=== PATIENT | female | born 1960 | race Caucasian/White ===

== ENCOUNTER → 2018-04-29 09:15 | Outpatient (CLI) | payer SELFPAY ==
--- NOTE | 2018-04-29 09:20 | XR_ITS ---
XR chest 2V HISTORY: ITS.REASON: FEVER ORDERING PHYSICIAN: Betty Antonio PATIENT AGE: 58 years COMPARISON: 03/26/2017 FINDINGS: There has been prior median sternotomy. Normal heart size. Lungs are clear bilaterally. No acute bony finding. IMPRESSION: No change with no acute finding
[2018-04-29 10:19] LABS: Basophils # 0.1 K/mm3 (0-0.2); Basophils % 0.5 % (0.1-2.0); Eosinophils % 0.2 % (0.1-12.0); Hematocrit 36.8 % (37.0-47.0); Hemoglobin 11.5 g/dL (12.2-16.2); Lymphocytes # 0.8 K/mm3 (0.7-4.5); Lymphocytes % 7.1 K/mm3 (10-50); Mean Corpuscular HGB Conc 31.2 g/dL (31.8-35.4); Mean Corpuscular Volume 80.1 fl (81-99); Monocytes # 0.2 K/mm3 (0.1-1.0); Monocytes % 2.2 % (1.7-9.3); Neutrophils # 9.9 K/mm3 (1.8-7.8); Platelet Count 316 K/mm3 (142-424); Red Blood Count 4.59 M/mm3 (4.20-5.40)
[2018-04-29 10:27] LABS: MANUAL DIFFERENTIAL MANUAL DIFFERENTIAL (MANUAL DIFF)
[2018-04-29 11:05] LABS: Alanine Aminotransferase 67 U/L (12-78); Albumin Level 3.2 gm/dL (3.4-5.0); Albumin/Globulin Ratio 0.9 (1.1-1.8); Alkaline Phosphatase 209 U/L (46-116); Anion Gap 18.5 mEq/L (5-15); Aspartate Amino Transferase 25 U/L (15-37); Bilirubin,Total 0.3 mg/dL (0.2-1.0); Blood Urea Nitrogen 16 mg/dL (7-18); Calcium 8.5 mg/dL (8.5-10.1); Carbon Dioxide 19 mmol/L (21.0-32.0); Chloride 102 mmol/L (98-107); Creatinine,Serum 0.93 mg/dL (0.55-1.02); Estimated Glomerular Filt Rate 61 ml/min (>60); GFR (African American) 74 ML/MIN (>60); Globulin 3.7 gm/dl (1.3-3.2); Glucose 119 mg/dL (74-106); Potassium 3.5 mmoL/L (3.5-5.1); Sodium 136 mmol/L (136-145); Total Protein,Serum 6.9 gm/dL (6.4-8.2)
[2018-04-29 11:52] LABS: Lymphocytes % 7 % (10-50); Monocytes % 2 % (2-9); Neutrophils % 89 % (42-76); Platelet Estimate Normal; Total Cells Counted 100
== END ==
PROVIDERS: PCP Nurse Practitioner Family; Visit Provider Nurse Practitioner Family
DX: R50.9 Fever, unspecified (principal)
CPT/HCPCS: 36415; 71046; 80053; 85007; 85025

== ENCOUNTER → 2018-05-08 10:15 | Outpatient (CLI) | payer OTHER, SELFPAY ==
[2018-05-08 10:43] LABS: Basophils # 0.1 K/mm3 (0-0.2); Basophils % 0.4 % (0.1-2.0); Eosinophils # 0.2 K/mm3 (0.0-0.4); Eosinophils % 1.6 % (0.1-12.0); Hematocrit 42.5 % (37.0-47.0); Lymphocytes # 1.4 K/mm3 (0.7-4.5); Mean Corpuscular HGB Conc 30.6 g/dL (31.8-35.4); Mean Corpuscular Volume 81.6 fl (81-99); Mean Platelet Volume 7.3 fl (7.4-10.4); Monocytes # 0.3 K/mm3 (0.1-1.0); Monocytes % 2.3 % (1.7-9.3); Neutrophils # 12.3 K/mm3 (1.8-7.8); Neutrophils % 85.8 % (37.0-80.0); Platelet Count 572 K/mm3 (142-424); Red Blood Count 5.21 M/mm3 (4.20-5.40); Red Cell Distribution Width 17.4 % (11.5-17.5); White Blood Count 14.3 K/mm3 (4.8-10.8)
[2018-05-08 11:29] LABS: Alanine Aminotransferase 467 U/L (12-78); Albumin Level 3.7 gm/dL (3.4-5.0); Amylase 222 U/L (25-125); Anion Gap 16.7 mEq/L (5-15); Aspartate Amino Transferase 536 U/L (15-37); Bilirubin,Direct 2.6 mg/dL (0.0-0.2); Bilirubin,Indirect 0.5 mg/dL (0.0-0.9); Bilirubin,Total 3.1 mg/dL (0.2-1.0); Blood Urea Nitrogen 14 mg/dL (7-18); Calcium 9.4 mg/dL (8.5-10.1); Carbon Dioxide 22 mmol/L (21.0-32.0); Chloride 105 mmol/L (98-107); Creatinine,Serum 0.92 mg/dL (0.55-1.02); Estimated Glomerular Filt Rate 62 ml/min (>60); GFR (African American) 75 ML/MIN (>60); Glucose 107 mg/dL (74-106); Potassium 3.7 mmoL/L (3.5-5.1); Sodium 140 mmol/L (136-145); Total Protein,Serum 7.3 gm/dL (6.4-8.2)
[2018-05-08 11:38] LABS: MANUAL DIFFERENTIAL MANUAL DIFFERENTIAL (MANUAL DIFF)
[2018-05-08 12:26] LABS: Lipase 4413 u/L (73-393)
[2018-05-08 12:29] LABS: Alkaline Phosphatase 1664 U/L (46-116)
[2018-05-08 14:23] LABS: Lymphocytes % 10 % (10-50); Monocytes % 3 % (2-9); Neutrophils % 87 % (42-76); Platelet Estimate Moderate Increase; Total Cells Counted 100
[2018-05-09 08:29] LABS: Hep A Ab, IgM Negative (Negative); Hepatitis B Core Antibody IgM Negative (Negative); Hepatitis B Surface Antigen Negative (Negative)
[2018-05-09 19:06] LABS: Hepatitis C Antibody <0.1 s/co ratio (0.0-0.9)
== END ==
PROVIDERS: PCP Nurse Practitioner Family; Visit Provider Nurse Practitioner Family
DX: R10.9 Unspecified abdominal pain (principal); R82.2 Biliuria; R11.2 Nausea with vomiting, unspecified
CPT/HCPCS: 36415; 80048; 80074; 80076; 82150; 83690; 85007; 85025

== ENCOUNTER → 2018-05-12 09:36 | Outpatient (CLI) | payer OTHER, SELFPAY ==
[2018-05-12 09:57] LABS: Basophils # 0.1 K/mm3 (0-0.2); Eosinophils # 0.2 K/mm3 (0.0-0.4); Eosinophils % 2.1 % (0.1-12.0); Hemoglobin 10.5 g/dL (12.2-16.2); Lymphocytes # 2.4 K/mm3 (0.7-4.5); Lymphocytes % 22.7 K/mm3 (10-50); Mean Corpuscular HGB Conc 30.1 g/dL (31.8-35.4); Mean Corpuscular Hemoglobin 25.2 pg (27.0-31.2); Mean Corpuscular Volume 83.8 fl (81-99); Mean Platelet Volume 7.4 fl (7.4-10.4); Monocytes # 0.4 K/mm3 (0.1-1.0); Monocytes % 3.6 % (1.7-9.3); Neutrophils # 7.6 K/mm3 (1.8-7.8); Neutrophils % 70.7 % (37.0-80.0); Platelet Count 476 K/mm3 (142-424); Red Blood Count 4.18 M/mm3 (4.20-5.40); Red Cell Distribution Width 17.8 % (11.5-17.5); White Blood Count 10.7 K/mm3 (4.8-10.8)
[2018-05-12 10:29] LABS: Alanine Aminotransferase 75 U/L (12-78); Albumin/Globulin Ratio 0.8 (1.1-1.8); Alkaline Phosphatase 608 U/L (46-116); Amylase 75 U/L (25-125); Anion Gap 15.9 mEq/L (5-15); Aspartate Amino Transferase 17 U/L (15-37); Bilirubin,Total 0.4 mg/dL (0.2-1.0); Blood Urea Nitrogen 16 mg/dL (7-18); Calcium 8.4 mg/dL (8.5-10.1); Carbon Dioxide 21 mmol/L (21.0-32.0); Chloride 110 mmol/L (98-107); Creatinine,Serum 0.69 mg/dL (0.55-1.02); Estimated Glomerular Filt Rate 87 ml/min (>60); GFR (African American) 105 ML/MIN (>60); Globulin 3.8 gm/dl (1.3-3.2); Glucose 95 mg/dL (74-106); Lipase 1339 u/L (73-393); Potassium 3.9 mmoL/L (3.5-5.1); Sodium 143 mmol/L (136-145); Total Protein,Serum 6.8 gm/dL (6.4-8.2)
== END ==
PROVIDERS: PCP Nurse Practitioner Family; Visit Provider Nurse Practitioner Family
DX: K85.90 Acute pancreatitis without necrosis or infection, unspecified (principal); R74.8 Abnormal levels of other serum enzymes
CPT/HCPCS: 36415; 80053; 82150; 83690; 85025

== ENCOUNTER → 2018-05-30 10:17 | Outpatient (CLI) | payer SELFPAY ==
[2018-05-30 10:50] LABS: Basophils # 0.1 K/mm3 (0-0.2); Basophils % 0.3 % (0.1-2.0); Eosinophils # 0.2 K/mm3 (0.0-0.4); Eosinophils % 1.1 % (0.1-12.0); Hematocrit 35.3 % (37.0-47.0); Hemoglobin 10.9 g/dL (12.2-16.2); Lymphocytes # 1.5 K/mm3 (0.7-4.5); Lymphocytes % 9.2 K/mm3 (10-50); Mean Corpuscular HGB Conc 30.9 g/dL (31.8-35.4); Mean Corpuscular Hemoglobin 25.3 pg (27.0-31.2); Mean Corpuscular Volume 81.6 fl (81-99); Mean Platelet Volume 6.5 fl (7.4-10.4); Monocytes # 0.6 K/mm3 (0.1-1.0); Monocytes % 3.8 % (1.7-9.3); Neutrophils # 14.2 K/mm3 (1.8-7.8); Neutrophils % 85.5 % (37.0-80.0); Platelet Count 354 K/mm3 (142-424); Red Blood Count 4.32 M/mm3 (4.20-5.40); Red Cell Distribution Width 17.4 % (11.5-17.5); White Blood Count 16.6 K/mm3 (4.8-10.8)
[2018-05-30 10:52] LABS: MANUAL DIFFERENTIAL MANUAL DIFFERENTIAL (MANUAL DIFF)
[2018-05-30 11:15] LABS: Alanine Aminotransferase 13 U/L (12-78); Albumin Level 3.1 gm/dL (3.4-5.0); Albumin/Globulin Ratio 0.8 (1.1-1.8); Alkaline Phosphatase 144 U/L (46-116); Amylase 34 U/L (25-125); Anion Gap 16.1 mEq/L (5-15); Aspartate Amino Transferase 12 U/L (15-37); Bilirubin,Total 0.4 mg/dL (0.2-1.0); Blood Urea Nitrogen 16 mg/dL (7-18); Calcium 8.6 mg/dL (8.5-10.1); Carbon Dioxide 23 mmol/L (21.0-32.0); Chloride 99 mmol/L (98-107); Creatinine,Serum 1.14 mg/dL (0.55-1.02); Estimated Glomerular Filt Rate 49 ml/min (>60); GFR (African American) 59 ML/MIN (>60); Glucose 113 mg/dL (74-106); Lipase 339 u/L (73-393); Potassium 4.1 mmoL/L (3.5-5.1); Sodium 134 mmol/L (136-145); Total Protein,Serum 7.1 gm/dL (6.4-8.2)
[2018-05-30 16:34] LABS: Lymphocytes % 11 % (10-50); Monocytes % 2 % (2-9); Neutrophils % 87 % (42-76); Platelet Estimate Normal; Total Cells Counted 100
[2018-05-30 16:35] LABS: Hypochromasia 1+
--- NOTE | 2018-05-30 18:17 | CT_ITS ---
CT abdomen w con CLINICAL INDICATION: Left upper quadrant pain, recurrent pancreatitis ITS.REASON: LUQ pain, N/V, recurrent pancreatitis ORDERING PHYSICIAN: Betty Antonio PATIENT AGE: 58 years COMPARISON: None TECHNIQUE: Axial images obtained with sagittal and coronal reformats. All CT scans at the facility use one or more dose reduction, viz: automated exposure control, ma/kV adjustment per patient size (including targeted exams where dose is matched to indication, i.e. head), or iterative reconstruction technique. PROCEDURE: Oral Contrast: None IV Contrast: 75 mL [id number]. FINDINGS: The lung bases are clear. Pneumobilia is present. There has been a prior cholecystectomy. No space-occupying lesions evident of the liver. The spleen and adrenal glands are unremarkable. There is no evidence of acute pancreatitis. There are a few calcifications within the head of the pancreas and may be due to prior chronic pancreatitis. The pancreatic duct is also slightly prominent 5 mm. There is a stoma between the anterior wall the stomach and a loop of small bowel which is located anterior to the wall the stomach consistent with a gastroenterostomy. It is assumed that this has been surgically created. Please correlate with patient's surgical history which is not available at the time of the reading No renal or ureteral calculi. There is mild cortical scarring along the lower pole of the left kidney. No obvious intestinal obstruction or free air. Pelvis images were not performed. There is some thickening of the gastric wall at the pyloric region which could be related to some gastritis or could be related to nondistention. There are a few small periaortic lymph nodes. These are nonspecific but are slightly larger compared to 06/24/2015 measuring up to 1.5 x 0.8 cm. No acute bony anomalies. . There is a mild amount of retained colonic feces IMPRESSION: 1. No evidence of acute pancreatitis. There is some calcification in the head of the pancreas may indicate chronic pancreatitis. 2. Pneumobilia, gastroenterostomy. 3. Mild thickening of the pyloric region of the stomach which may be related to gastritis or nondistention.
== END ==
LOC: LAB 10:18 → RAD 17:00
PROVIDERS: PCP Nurse Practitioner Family; Visit Provider Nurse Practitioner Family
DX: R10.12 Left upper quadrant pain (principal); R11.2 Nausea with vomiting, unspecified; K86.1 Other chronic pancreatitis
CPT/HCPCS: 36415; 74160; 80053; 82150; 83690; 85007; 85025; Q9967

== ENCOUNTER 2019-04-12 00:06 | Inpatient (IN) ==
--- NOTE | 2019-04-12 01:05 | Emergency Department Note ---
ED Disposition Clinical Impression: Hip fracture Qualifiers: Encounter type: initial encounter Fracture type: closed Laterality: right Qualified Code(s): S72.001A - Fracture of unspecified part of neck of right femur, initial encounter for closed fracture Disposition: Admitted As Inpatient Condition on Discharge: Good Referrals: Betty Antonio APRN [Primary Care Provider] - - Critical Care Critical Care Time: No Attestation: On 04/12/19, the high probability of a clinically significant, sudden or life threatening deterioration of the following system(s) required my full and direct attention, intervention and personal management. The time I documented below is in addition to time spent performing reported procedures but includes the following listed in this critical care notation. Medical Decision Making - Medical Records Medical records reviewed: Yes: I reviewed the patient's medical records. - [place] Inquiry Pt receiving controlled substance: No Vital Signs: 04/12/19 00:09 Temperature 98.3 F Temperature Source Oral Pulse Rate [Right] 74 Respiratory Rate 18 Blood Pressure [Right Arm] 168/74 H Blood Pressure Mean [Right Arm] 105 02 Sat by Pulse Oximetry 98 - Lab Data Lab results reviewed: Yes: I reviewed the patient's lab results. Orders (Tests/Meds): ORDERS Category Date Time Status XR hip RT 2-3V w/pelvis Stat Exams 04/12/19 00:15 Taken - Radiology Data #1 Image(s): Chest, Pelvis, Hip Image Reviewed: Yes I reviewed the patient's radiology image Preliminary Findings: Abnormal (hip fx ) - Physician Consults Physician Consulted: elvia Reason -: Admission Additional Consult: harrison Reason -: Pt condition General Adult HPI - General Chief complaint: PAIN Stated complaint: Fall at [facility];Rt Hip Pain Time Seen by Provider: 04/12/19 00:15 Mode of Arrival: Wheelchair Source of Information: Patient, Relative, Medical Record Limitations: No Limitations Description of Symptoms (Recalled from ER Triage Doc. by RN): Pt was here visiting her and while in the parking lot she fell on her bottom and now is complaining of right hip pain. - History of Present Illness HPI narrative: pt with fall this pm in parking lot with rt hip injury Onset (ago): hour(s) Location: right, lower extremity Severity: moderate Associated symptoms: denies other symptoms Treatments prior to arrival: none - Related Data Home Medications Medication Instructions Recorded Confirmed Estradiol 0.5 mg PO DAILY 12/18/17 12/18/17 Gabapentin [Gabapentin 300mg Cap] 300 mg PO BID 12/18/17 12/18/17 Pantoprazole Sodium [Pantoprazole 40 mg PO BID 12/18/17 12/18/17 20mg Tab] Allergies Allergy/AdvReac Type Severity Reaction Status Date / Time levofloxacin [From LEVAQUIN] Allergy Unknown SEIZURES Verified 12/18/17 13:44 [facility] History - Hepatitis A Screen Drug use history?: No High risk sexual behaviors?: No History of sexually transmitted infection?: No Currently employed?: No Childcare worker?: No Do you have indoor plumbing?: Yes Do you have electricity?: Yes Attestation statement:: This patient has been screened for Hepatitis A risk factors. I have reviewed the patient's past medical history: Yes Medical History: Reports:: Gastroesophageal Reflux Disease(GERD), Seizures, Valvular Heart Disease (had replaced in 2012) Denies:: Diabetes Mellitus Type 1, Diabetes Mellitus Type 2, Internal Pacemaker, Lung Disease Laterality Cases: Bilateral: Tonsillectomy Other Surgeries: Yes: Appendectomy, Cholecystectomy, Other (gastric bypass). No: Pacemaker - Social History Smoking Status: Current every day smoker # Packs/Day (cigarettes): 1 Alcohol Intake: never Occupational Status: retired ROS Obtained: Yes All systems reviewed & no additional complaints - Constitutional Constitutional: Denies fever(s) - Eyes Eyes: Denies change in vision - ENT Ears, Nose, Mouth, and Throat: Denies sore throat - Cardiovascular Cardiovascular: Denies chest pain - Respiratory Respiratory: No cough - Gastrointestinal Gastrointestingal: Denies: abdominal pain - Genitourinary Female Genitourinary: Denies hematuria - Musculoskeletal Musculoskeletal: Reports as per HPI, Reports joint pain, Reports limited range of motion - Integumentary/Breasts Skin/Breast: Denies rash - Neurologic Neurologic: Denies focal weakness, Denies seizure-like activity Physical Exam - General General appearance: alert - Head Head exam: normocephalic - Eye Eye exam: Present: PERRL, EOMI - ENT ENT exam: Present: mucous membranes dry - Neck Neck exam: Present: trachea midline - Respiratory Respiratory exam: Absent: respiratory distress - Cardiovascular Cardiovascular exam: Present: regular rate, systolic murmur, +S4 - Abdominal Exam Abdominal exam: Present: soft - Expanded Lower Extremity Exam Right Hip/Pelvis exam: Present: tenderness, pelvis stable, pain on hip/pelvis palpation, hip pain on leg movement - Neurological Exam Neurological exam: Present: alert, oriented X3, CN II-XII intact - Psychiatric Psychiatric exam: Present: normal affect - Skin Skin exam: Absent: rash
[2019-04-12 01:15] LABS: Microscopic, Urine URINE MICROSCOPIC (MICROSCOPIC)
[2019-04-12 01:19] LABS: Basophils # 0.1 K/mm3 (0-0.2); Basophils % 0.5 % (0.1-2.0); Eosinophils # 0.1 K/mm3 (0.0-0.4); Hematocrit 40.8 % (37.0-47.0); Hemoglobin 12.4 g/dL (12.2-16.2); Lymphocytes # 2.3 K/mm3 (0.7-4.5); Lymphocytes % 17.6 % (10-50); Mean Corpuscular HGB Conc 30.5 g/dL (31.8-35.4); Mean Corpuscular Volume 78.7 fl (81-99); Mean Platelet Volume 6.9 fl (7.4-10.4); Monocytes # 0.6 K/mm3 (0.1-1.0); Monocytes % 4.4 % (1.7-9.3); Neutrophils # 9.9 K/mm3 (1.8-7.8); Neutrophils % 76.5 % (37.0-80.0); Platelet Count 277 K/mm3 (142-424); Red Blood Count 5.18 M/mm3 (4.20-5.40); Red Cell Distribution Width 23.1 % (11.5-17.5); White Blood Count 12.9 K/mm3 (4.8-10.8)
[2019-04-12 01:21] LABS: Appearance,Urine CLEAR (Clear); Bilirubin,Urine Negative (Negative); Blood, Urine TRACE-L (Negative); Color,Urine YELLOW (Yellow); Glucose,Urine (UA) Negative (Negative); Ketones,Urine Negative (Negative); Leukocyte Esterase,Urine Negative (Negative); Protein,Urine Negative (Negative); Urobilinogen,Urine 0.2 EU/dl (0.2)
[2019-04-12 01:27] LABS: RBC,Urine Occasional #/hpf (0-3)
[2019-04-12 01:30] LABS: Activated Partial Thrombo Time 25.4 seconds (23.6-34.0); Prothrombin Time 10.4 seconds (9.4-11.8)
[2019-04-12 01:46] LABS: Albumin Level 3.4 gm/dL (3.4-5.0); Albumin/Globulin Ratio 0.9 (1.1-1.8); Bilirubin,Total 0.2 mg/dL (0.2-1.0); Calcium 8.9 mg/dL (8.5-10.1); Globulin 3.8 gm/dl (1.3-3.2); Total Protein,Serum 7.2 gm/dL (6.4-8.2)
--- NOTE | 2019-04-12 07:16 | History & Physical Report ---
*Admission Date: 04/12/19 *Chief complaint: Right hip pain *History of present illness: 59-year-old female presented to the ER after a fall in the hospital parking lot. Patient was here visiting family and leaned back against an object that she thought would support her weight. She was incorrect and patient ended up falling back directly landing on her bottom. She felt immediate onset of pain in the right hip. Patient was able to get to a standing position and ambulate but was seen in the emergency department and diagnosed with a femoral neck fracture. Patient is admitted for orthopedic consultation and repair. Medical history is significant for chronic cigarette use, currently half pack per day. Patient has had aortic valve replacement with tissue valve and does not require long-term anticoagulation. Patient has had some gastrointestinal surgery that she refers to as a "bypass" but is not for weight loss. [facility] History Medical History: Reports:: Gastroesophageal Reflux Disease(GERD), Seizures, Valvular Heart Disease (had replaced in 2012) Denies:: Cancer, Diabetes Mellitus Type 1, Diabetes Mellitus Type 2, Internal Pacemaker, Lung Disease, MRSA *Have you ever received a pneumonia vaccine?: No *Have you received a flu vaccine this season?: No ("Just didn't need it.") Laterality Cases: Bilateral: Tonsillectomy Other Surgeries: Yes: Appendectomy, Cholecystectomy, Other Valve Replacement (Bioprosthetic aortic valve replacement), Other (gastric bypass). No: Pacemaker Amputation: No Fractures: No - *Social History Educational Level: Completed High School Smoking Status: Current every day smoker Tobacco Type: cigarettes # Packs/Day (cigarettes): 1 Alcohol Intake: never *Occupational Status:: employed, retired Housing: house Household Members: spouse *Travel in the last 8 weeks: None - Psychiatric History Expresses thoughts of harming self/others: None Suicide Plan Description: No Plan Family Hx:: Cancer, Diabetes, Hyperlipidemia, Hypertension, Kidney Disease, Stroke Review of Systems - Constitutional Denies anorexia, Denies body ache(s) - *Cardiovascular Denies chest pain, Denies chest pain at rest, Denies chest pain with activity, Denies shortness of breath, Denies shortness of breath with activity, Denies irregular heart rhythm, Denies lightheadedness, Denies shortness of breath when lying down, Denies rapid, pounding, or irregular heartbeat, Denies shortness of breath causing sudden awakening, Denies radiating jaw, neck or arm pain, Denies fast heart rate, Denies slow heart rate - *Respiratory Denies change in phlegm color, Denies chest congestion, Denies cough, Denies shortness of breath, Denies coughing up blood, Denies wheezing - *Gastrointestinal Denies abdominal pain, Denies belching, Denies bloating - *Musculoskeletal Reports joint pain, Reports limited joint movement - *Neurologic Denies abnormal walking, Denies abnormal hearing, Denies abnormal movements, Denies abnormal speech, Denies localized weakness, Denies seizure-like activity Meds Home Medications Medication Instructions Recorded Confirmed Type Estradiol 0.5 mg PO DAILY 12/18/17 04/12/19 History Gabapentin [Gabapentin 300mg Cap] 300 mg PO BID 12/18/17 04/12/19 History Pantoprazole Sodium [Pantoprazole 40 mg PO BID 12/18/17 04/12/19 History 20mg Tab] Ropinirole HCl [Ropinirole ER] 4 mg PO HS 04/12/19 04/12/19 History Temazepam [Restoril] 15 mg PO HS 04/12/19 04/12/19 History Allergies Allergy/AdvReac Type Severity Reaction Status Date / Time levofloxacin [From LEVAQUIN] Allergy Unknown SEIZURES Verified 12/18/17 13:44 Exam Vital signs and Labs for Last 24 Hours: Temp Pulse Resp BP Pulse Ox 98.3 F 84 18 112/57 L 98 04/12/19 03:52 04/12/19 03:52 04/12/19 03:52 04/12/19 03:52 04/12/19 03:52 Laboratory Results - last 24 hr 04/12/19 01:00: WBC 12.9 H, RBC 5.18, Hgb 12.4, Hct 40.8, MCV 78.7 L, MCH 24.0 L , MCHC 30.5 L, RDW 23.1 H, Plt Count 277, MPV 6.9 L, Neut % (Auto) 76.5, Lymph % (Auto) 17.6, Jones % (Auto) 4.4, Eos % (Auto) 1.0, Baso % (Auto) 0.5, Neut # (Auto) 9.9 H, Lymph # (Auto) 2.3, Jones # (Auto) 0.6, Eos # (Auto) 0.1, Baso # (Auto) 0.1 04/12/19 01:00: PT 10.4, INR 1.00, APTT 25.4 04/12/19 01:00: Sodium 141, Potassium 3.0 L, Chloride 104, Carbon Dioxide 24, Anion Gap 16.0 H, BUN 10, Creatinine 0.88, Estimated Creat Clear 55, Estimated GFR 65, Est GFR ( Amer) 79, Glucose 102, Calcium 8.9, Total Bilirubin 0. 2, AST 12 L, ALT 18, Alkaline Phosphatase 75, Total Protein 7.2, Albumin 3.4, Globulin 3.8 H, Albumin/Globulin Ratio 0.9 L 04/12/19 01:10: Urine Color Yellow, Urine Appearance Clear, Urine pH 6.0, Ur Specific [place] 1.010, Urine Protein Negative, Urine Glucose (UA) Negative, Urine Ketones Negative, Urine Blood Trace-l, Urine Nitrate Negative, Urine Bilirubin Negative, Urine Urobilinogen 0.2, Ur Leukocyte Esterase Negative, Urine RBC Occasional, Ur Squamous Epith Cells 3-5 I & O for Last 24 hours: Intake & Output 04/09/19 04/10/19 04/11/19 04/12/19 11:59 11:59 11:59 11:59 Intake Total 167 / 167 Output Total 450 / 450 Balance -283 / -283 Weight 128 lb 9 oz Narrative: Patient is awake and alert resting comfortably in bed. Scalp is without lesions. Pupils are reactive to light. Oropharynx is moist and clear. Neck has no lymphadenopathy. Lungs are clear to auscultation. Heart has a regular rate and rhythm. Abdomen is soft, nontender with normal bowel sounds. Musculoskeletal exam is significant for an externally rotated shortened right leg. I did not ask the patient to flex her hip. Neurologically she is intact to sensation and motor function in the right ankle and foot. There is no sensory deficit. Assessment and Plan (1) Closed right hip fracture Current visit: Yes Status: Acute Category: Medical Code(s): S72.001A - Fracture of unspecified part of neck of right femur, initial encounter for closed fracture (2) Gastroesophageal reflux disease Current visit: Yes Status: Acute Category: Medical Code(s): K21.9 - Gastro-esophageal reflux disease without esophagitis (3) History of aortic valve replacement with porcine valve Current visit: Yes Status: Acute Category: Surgical Code(s): Z95.3 - Presence of xenogenic heart valve - Assessment and plan all Dx Assessment and Plan for all problems:: 1. Orthopedic consultation and hip fracture repair today 2. Home medications
--- NOTE | 2019-04-12 10:10 | Consult Report ---
*Admission Date: 04/12/19 *Reason for consult:: Fracture neck of femur right *History of present illness: Patient is a 59-year-old female admitted overnight from the ER with a nondisplaced subcapital fracture neck of right femur after a fall in the hospital parking lot. Patient was here visiting family and leaned back against an object that she thought would support her weight. She was incorrect and patient ended up falling back directly landing on her bottom. She felt immediate onset of pain in the right hip. Patient was able to get to a standing position and ambulate but was seen in the emergency department and diagnosed with a femoral neck fracture following x-rays. Patient is admitted for orth opedic consultation and repair. Medical history is significant for chronic cigarette use, currently half pack per day. Patient has had aortic valve replacement with tissue valve and does not require long-term anticoagulation. Patient has had some gastrointestinal surgery that she refers to as a "bypass" but is not for weight loss. Patient normally lives with her family and is mobile and independent. She does not use any walking aids. No history of any other injuries. No history of any loss of consciousness, head injury, neck pain, chest pain and shortness of breath. Review of Systems - Review of Systems Review of systems:: pertinent systems reviewed and negative unless documented below - Constitutional Denies anorexia, Denies body ache(s) - Eyes Denies blind spots, Denies blurry vision - ENT Denies bleeding gums - *Cardiovascular Denies chest pain, Denies shortness of breath - *Respiratory Denies cough, Denies shortness of breath - *Gastrointestinal Denies abdominal pain, Denies change in bowel habits - *Musculoskeletal Reports abnormal walking, Reports joint pain - *Neurologic Denies abnormal hearing, Denies abnormal movements, Denies abnormal speech, Denies localized weakness, Denies seizure-like activity - Hematologic/Lymphatic Denies easy bleeding H History I have reviewed the patient's past medical history: Yes Medical History: Reports:: Gastroesophageal Reflux Disease(GERD), Seizures, Valvular Heart Disease (had replaced in 2012) Denies:: Cancer, Diabetes Mellitus Type 1, Diabetes Mellitus Type 2, Internal Pacemaker, Lung Disease, MRSA *Have you ever received a pneumonia vaccine?: No *Have you received a flu vaccine this season?: No ("Just didn't need it.") Laterality Cases: Bilateral: Tonsillectomy Other Surgeries: Yes: Appendectomy, Cholecystectomy, Other Valve Replacement (Bioprosthetic aortic valve replacement), Other (gastric bypass). No: Pacemaker Amputation: No Fractures: No - *Social History Educational Level: Completed High School Smoking Status: Current every day smoker Tobacco Type: cigarettes # Packs/Day (cigarettes): 1 Alcohol Intake: never *Occupational Status:: employed, retired Housing: house Household Members: spouse *Travel in the last 8 weeks: None - Psychiatric History Expresses thoughts of harming self/others: None Suicide Plan Description: No Plan Family Hx:: Cancer, Diabetes, Hyperlipidemia, Hypertension, Kidney Disease, Stroke Meds Home Medications Medication Instructions Recorded Confirmed Type Gabapentin [Gabapentin 300mg Cap] 300 mg PO BID 12/18/17 04/12/19 History RX: Estradiol 0.5 mg PO DAILY 12/18/17 04/12/19 History Pantoprazole Sodium [Protonix 40mg 40 mg PO BID 04/12/19 04/12/19 History tablet] Ropinirole HCl [Ropinirole ER] 4 mg PO HS 04/12/19 04/12/19 History Temazepam [Restoril] 15 mg PO HS 04/12/19 04/12/19 History Allergies Allergy/AdvReac Type Severity Reaction Status Date / Time levofloxacin [From LEVAQUIN] Allergy Unknown SEIZURES Verified 12/18/17 13:44 Exam Vital signs and Labs for Last 24 Hours: Temp Pulse Resp BP Pulse Ox 98.6 F 78 16 108/59 L 93 L 04/12/19 07:56 04/12/19 07:56 04/12/19 07:56 04/12/19 07:56 04/12/19 08:00 Laboratory Results - last 24 hr 04/12/19 01:00: WBC 12.9 H, RBC 5.18, Hgb 12.4, Hct 40.8, MCV 78.7 L, MCH 24.0 L , MCHC 30.5 L, RDW 23.1 H, Plt Count 277, MPV 6.9 L, Neut % (Auto) 76.5, Lymph % (Auto) 17.6, [place] % (Auto) 4.4, Eos % (Auto) 1.0, Baso % (Auto) 0.5, Neut # (Auto) 9.9 H, Lymph # (Auto) 2.3, [place] # (Auto) 0.6, Eos # (Auto) 0.1, Baso # (Auto) 0.1 04/12/19 01:00: PT 10.4, INR 1.00, APTT 25.4 04/12/19 01:00: Sodium 141, Potassium 3.0 L, Chloride 104, Carbon Dioxide 24, Anion Gap 16.0 H, BUN 10, Creatinine 0.88, Estimated Creat Clear 55, Estimated GFR 65, Est GFR ( Amer) 79, Glucose 102, Calcium 8.9, Total Bilirubin 0.2, AST 12 L, ALT 18, Alkaline Phosphatase 75, Total Protein 7.2, Albumin 3.4, Globulin 3.8 H, Albumin/Globulin Ratio 0.9 L 04/12/19 01:10: Urine Color Yellow, Urine Appearance Clear, Urine pH 6.0, Ur Specific Atkinson 1.010, Urine Protein Negative, Urine Glucose (UA) Negative, Urine Ketones Negative, Urine Blood Trace-l, Urine Nitrate Negative, Urine Bilirubin Negative, Urine Urobilinogen 0.2, Ur Leukocyte Esterase Negative, Urine RBC Occasional, Ur Squamous Epith Cells 3-5 I & O for Last 24 hours: Intake & Output 04/09/19 04/10/19 04/11/19 04/12/19 11:59 11:59 11:59 11:59 Intake Total 167 / 167 Output Total 450 / 450 Balance -283 / -283 Weight 128 lb 9 oz - Constitutional no acute distress, average body habitus, cooperative - *Routine HEENT Exam Head: Present: normocephalic, atraumatic Eye: Present: EOMI ENT: Present: mucous membranes moist - *Routine Neck Exam Present: supple, full ROM, trachea midline. Absent: lymphadenopathy - *Routine Respiratory Exam Present: CTA bilaterally. Absent: respiratory distress - *Routine Cardiovascular Exam Present: RRR, Normal S1, Normal S2 - *Routine Abdominal Exam Present: soft, normoactive bowel sounds. Absent: organomegaly - *Routine Extremities Exam Comments: On examination of her lower extremities, the limb lengths are equal. The alignment is neutral. On examination of the right hip the skin is normal. No rashes or lesions noted. She is tender over the right hip both anteriorly and posteriorly. Any attempted movements of the right hip are painful. Thigh and calf are soft and nontender. Dorsalis pedis and posterior tibial pulses are palpable 2+ bilaterally. Sensation is grossly intact. She has good range of knee, foot, ankle and toe movements. Imaging: X-rays of her pelvis and right hip multiple views were reviewed along with the radiologist's report. The x-rays show a right valgus impacted subcapital femoral neck fracture. The hip joint space is well preserved. No o ther acute changes noted. - Routine Back/Spine/Pelvis Exam Back/Spine: Absent: vertebral tenderness Pelvis: Absent: pain with lateral compression of the pelvis - *Routine Skin Exam Present: intact, warm, normal turgor - *Routine Neurological Exam Present: alert, oriented X3, CN II-XII intact - Routine Psychiatric Exam Present: normal affect, cooperative Results - Labs Result Diagrams: 04/12/19 01:00 04/12/19 01:00 Labs: Abnormal lab results 04/12/19 04/12/19 Range/Units 01:00 01:00 WBC 12.9 H (4.8-10.8) K/mm3 MCV 78.7 L (81-99) fl MCH 24.0 L (27.0-31.2) pg MCHC 30.5 L (31.8-35.4) g/dL RDW 23.1 H (11.5-17.5) % MPV 6.9 L (7.4-10.4) fl Neut # (Auto) 9.9 H (1.8-7.8) K/mm3 Potassium 3.0 L (3.5-5.1) mmoL/L Anion Gap 16.0 H (5-15) mEq/L AST 12 L (15-37) U/L Globulin 3.8 H (1.3-3.2) gm/dl Albumin/Globulin Ratio 0.9 L (1.1-1.8) H & H 04/12/19 Range/Units 01:00 Hgb 12.4 (12.2-16.2) g/dL Hct 40.8 (37.0-47.0) % Coagulation 04/12/19 Range/Units 01:00 INR 1.00 (0.9-1.1) All other labs normal. Assessment and Plan (1) Closed right hip fracture Current visit: Yes Status: Acute Category: Medical Code(s): S72.001A - Fracture of unspecified part of neck of right femur, initial encounter for closed fracture (2) Gastroesophageal reflux disease Current visit: Yes Status: Acute Category: Medical Code(s): K21.9 - Gastro-esophageal reflux disease without esophagitis (3) History of aortic valve replacement with porcine valve Current visit: Yes Status: Acute Category: Surgical Code(s): Z95.3 - Presence of xenogenic heart valve - Assessment and plan all Dx Assessment and Plan for all problems:: I have reviewed the clinical and x-ray findings with the patient. I have discussed the diagnosis and management options in detail including both nonsurgical and surgical. We discussed the surgical options in the form of either cannulated hip screw fixation or hemiarthroplasty or total hip arthroplasty. We discussed the pros and cons of both the procedures. Given that the fracture appears to be stable with valgus impaction, I have recommended a cannulated hip screw fixation. We discussed the possibility of nonunion, avascular necrosis, loss of fixation and the likely need for further surgery in future if we elected this option. I explained the procedure, risks, benefits, alternatives and the expected postoperative course. I also explained to the patient with drawings of the fracture and the proposed surgical procedure. I have given the patient a copy of the x-ray and also showed postoperative x-rays of similar fractures treated surgically. The complications discussed include but are not limited to- infection, injury to nerves and blood vessels, DVT and PE, femur fracture, limb length inequality, implant failure, nonunion, malunion, avascular necrosis, loss of fixation, heterotopic ossification, incomplete relief of pain, incomplete return of function or motion, likely need for further surgery in future including conversion to a barry-or total hip arthroplasty, anesthetic/medical complications including heart attack, stroke, transfusion reactions and even . We discussed how any of these events can be devastating. I've explained that the patient is at a significant surgical risk due to her age, medical comorbidities, and fragility of the bone. Patient seem to understand and accept these risks. We have discussed nonsurgical alternatives as well. The nonoperative management would essentially consist of prolonged bed rest and traction (skeletal/skin) in bed and pain medication and has exceptionally poor outcome. This could result in nonunion and/or malunion of the fracture and almost certainly, the patient has a very high risk of decubitus ulcers, UTI, respiratory tract infections, DVT/PE and other complications from being bedridden. I have explained to her that the standard of care for this type of fracture is surgical throughout the country unless the patient is very ill to undergo surgery. We also discussed the postoperative course including the rehab and physical therapy required. All the questions were answered and patient verbalized a good understanding. Patient is cleared for surgery by Dr. Baker from a medical standpoint. We will also obtain a preoperative anesthetic evaluation. The limb was appropriately marked and initialed by me. I have also strongly advised her to stop smoking and explained the rationale behind this advice. Recommendations for preoperative preparation include- Type and screen Continue nothing by mouth Schedule for surgery with the Operating Room Continue IV fluids DVT prophylaxis as per protocol Analgesia as needed Consent patient for a cannulated screw fixation/hemiarthroplasty/total hip arthroplasty right hip. Order 2 g of IV Ancef for preoperative prophylaxis to start half an hour before surgery. I am planning to take the patient for surgery at the earliest opportunity today. Thank you for the opportunity to take part in the care of this very pleasant patient.
--- NOTE | 2019-04-12 10:52 | Progress Note ---
[facility] Anesthesia Checklist - Patient Identification Patient Identification: Arm Band, Verbal (Name & ) - Structural Data Admitted From: Inpatient Planned Operative Procedure/s: r hip screw Consent for Planned Operative Procedure(s) Verified: Yes Verified Documents: History and Physical - NPO Status Verified Time NPO: 00:00 - Additional verifications Patient : No Anesthesia Reactions: No Hx Blood Transfusions: No Blood Transfusion Reaction: No Cephalosporin Allergy: No Previous Colonoscopy: Yes - Cardiovascular Assessment Heart Sounds: S1 & S2 Pulse Strength: Baseline Pulse Rhythm: Regular Peripheral Edema: No - Airway Assessment C-Spine Mobility Assessed: Yes TMJ Mobility Assessed: Yes Dentition: Edentulous - Neurological Assessment Level of Consciousness: Awake, Alert, Appropriate Hx Seizures: No Numbness or tingling in extremities: No - Anesthesia Plan Anesthesia Risk discussed: Yes Anesthesia Plan: Verified ASA Class: III Anesthesia Type: General [facility] History I have reviewed the patient's past medical history: Yes Medical History: Reports:: Gastroesophageal Reflux Disease(GERD), Seizures, Valvular Heart Disease (had replaced in 2012) Denies:: Cancer, Diabetes Mellitus Type 1, Diabetes Mellitus Type 2, Internal Pacemaker, Lung Disease, MRSA *Have you ever received a pneumonia vaccine?: No *Have you received a flu vaccine this season?: No ("Just didn't need it.") Other Medical History: Reports: Other Laterality Cases: Bilateral: Tonsillectomy Other Surgeries: Yes: Appendectomy, Cholecystectomy, Other Valve Replacement (Bioprosthetic aortic valve replacement), Other (gastric bypass). No: Pacemaker Amputation: No Fractures: No - *Social History Educational Level: Completed High School Smoking Status: Current every day smoker Tobacco Type: cigarettes # Packs/Day (cigarettes): 1 Alcohol Intake: never Alcohol Intake Frequency:: other Substance Use Type: other Last Used Substance: unknown *Occupational Status:: employed, retired Housing: house Household Members: spouse *Travel in the last 8 weeks: None - Psychiatric History Expresses thoughts of harming self/others: None Suicide Plan Description: No Plan Family Hx:: Cancer, Diabetes, Hyperlipidemia, Hypertension, Kidney Disease, Stroke
--- NOTE | 2019-04-12 12:10 | Pharmacy Consult Notes ---
[facility] Pharmacy VTE Monitoring - Patient Demographics Admission date: 04/12/19 Report Date: 04/12/19 Time: 12:09 Allergies/Adverse Reactions: Patient Allergies levofloxacin [From LEVAQUIN] Allergy (Unknown, Verified 12/18/17 13:44) SEIZURES Height: 1.57 m Weight: 58.315 kg Patient Problems: Current Active Problems Hip fracture (Acute) Closed right hip fracture (Acute) Gastroesophageal reflux disease (Acute) History of aortic valve replacement with porcine valve (Acute) - VTE Risk Labs: VTE Related Lab Results Hgb 12.4 g/dL (12.2-16.2) 04/12/19 01:00 Hct 40.8 % (37.0-47.0) 04/12/19 01:00 Plt Count 277 K/mm3 (142-424) 04/12/19 01:00 PT 10.4 seconds (9.4-11.8) 04/12/19 01:00 INR 1.00 (0.9-1.1) 04/12/19 01:00 APTT 25.4 seconds (23.6-34.0) 04/12/19 01:00 BUN 10 mg/dL (7-18) 04/12/19 01:00 Creatinine 0.88 mg/dL (0.55-1.02) 04/12/19 01:00 Estimated Creat Clear 55 mL/min (50-200) 04/12/19 01:00 Was VTE Risk Assessment Performed: Yes VTE Score: 4 VTE Risk Level: Low Risk - Prophylaxis Types of VTE Prophylaxis: TEDS Knee High (ORDER PLACED FOR TEDS, PATIENT IN SURGERY NOW) Location of Applied Device: Bilateral Lower Extremeties
--- NOTE | 2019-04-12 12:59 | Progress Note ---
[facility] Anesthesia Record Part II Discharge Time: 13:25 Destination: Medical Surgical Department PACU nurse assessment reviewed?: Yes Patient Condition:: Good Anesthesia Complications:: None Swallowing reflex intact?: Yes Cyanosis?: No
--- NOTE | 2019-04-12 12:59 | Progress Note ---
[facility] Anesthesia Record Part I Intake, IV Amount: 300 Estimated blood loss (mL): 50 Urine output (mL): 350 Blood Products used (#): none Blood Pressure: 140/73 SaO2: 95 Pulse Rate: 83 Respiratory Rate: 20 Temperature: 98.5 F Patient is:: Awake, Nasal O2, Stable Stable to PACU at:: 12:55
--- NOTE | 2019-04-12 14:21 | Operative Note ---
Date of procedure: 04/12/19 Pre-op Diagnosis:: Closed, impacted fracture neck of femur, left hip Post-op Diagnosis:: Same Procedure performed:: Cannulated screw fixation, left hip Surgeon:: Epi Benjamin MD CURRICULUM CONSULTANT:: Yohan Aranda Anesthesia: GETRufino Estimated blood loss (mL): 50 Clinical Note:: Patient is a 59-year-old female who sustained a closed valgus impacted fracture neck of right femur following a mechanical fall. Internal fixation with cannulated hip screws was indicated to relieve pain and restore function. Please refer to my consult note for full details. Operative findings:: Closed nondisplaced valgus impacted femoral neck fracture right hip as noted on the preoperative hip x-rays. The proximal femur bone quality is good. Operative note:: On the day of the procedure the patient was met on the floor, and a physical examination was performed. The operative side and site were marked and initialed by me. I reviewed the clinical and x-ray findings with the patient. I have discussed the diagnosis and management options in detail including both nonsurgical and surgical. We discussed the surgical options in the form of either cannulated hip screw fixation or hemiarthroplasty/total hip arthroplasty. We discussed the pros and cons of these procedures. Given that the fracture rita ears to be stable with valgus impaction, I have recommended a cannulated hip screw fixation. We discussed the possibility of nonunion, avascular necrosis, loss of fixation and the likely need for further surgery in future if we elected this option. I explained the procedure, risks and benefits, alternatives and the expected postoperative course. I explained with drawings and x-ray pictures of the fracture and the proposed surgical procedure. The complications discussed include but are not limited to- infection, injury to nerves and blood vessels, DVT and PE, femur fracture, limb length inequality, implant failure, nonunion, malunion, avascular necrosis, loss of fixation, heterotopic ossification, incomplete relief of pain, incomplete return of function or motion, likely need for further surgery in future including conversion to a barry-or total hip arthroplasty, anesthetic/medical complications including heart attack, stroke, transfusion reactions and even . We discussed how any of these events can be devastating. We have discussed nonsurgical alternatives as well. We also discussed the postoperative course including the rehab and physical therapy required. All the questions were answered and patient verbalized a good understanding. Patient understood the risks, agreed to proceed with surgery, signed the consent form and no guarantees or assurances were given or implied. Following appropriate preoperative workup and medical clearance, patient was brought to the operating room and a general anesthesia was administered. Patient was then positioned supine on the fracture table and all the bony prominences were appropriately padded. The right foot was secured in the footplate and the footplate was attached to the fracture table. The left leg was placed out of the way in a leg smith. Under fluoroscopic guidance the fracture was visualized and noted to be still holding good in valgus impaction with no change in position compared to the preoperative x-rays. The right hip and thigh were then prepped and draped in the usual sterile fashion. Administration of prophylactic antibiotics was confirmed with the anesthetic team (2 g of IV Ancef was administered). A preprocedure timeout was performed as per the hospital protocol. After marking the level of the greater trochanter on the skin and the proposed screw trajectory under fluoroscopy, a skin incision was made for the lateral approach to the proximal femur. The dissection was then carried through subcutaneous tissue. The fascia héctor and vastus lateralis were split in line with the skin incision. This provided access to the lateral aspect of the proximal femur. Under fluoroscopic guidance a guidewire was placed starting just above the level of the lesser trochanter and directed into the femoral head. After confirming satisfactory position of this guidewire under fluoroscopic imaging, two more parallel guidewires were placed proximally in an inverted triangular fashion using the multi-guidewire placing tool. After confirming satisfactory placement of all 3 guidewires in both AP and lateral planes, the lengths were measured and appropriate screws were selected. The outer cortex was drilled over the guidewires. Then three 6.5 mm (16 mm thread) cannulated screws 1 of them with a washer were placed over the guidewires and advanced into the femoral head to the appropriate level. The guidewires were then removed and fluoroscopic images were obtained showing satisfactory and stable fixation of the fracture. Fluoroscopic images were stored digitally. The wound was washed out with normal saline and hemostasis was obtained with the diathermy cautery. The wound was then closed in layers with the 2-0 Vicryl, 2-0 Vicryl and subcuticular 4-0 Monocryl sutures, Dermabond and Steri-Strips to the skin. 30 mL of 0.5 percent Marcaine with epinephrine was injected into the skin and subcutaneous tissue around the incision for postoperative pain relief. Sterile dressings were applied. The right foot was taken out of the foot smith and the left leg out of the leg smith and placed on the table extension. The limb lengths were noted to be equal and there was no rotational malalignment. Dorsalis pedis and posterior tibial pulses were 2+ on both sides. At the end of the procedure, swab, needle and instrument counts were correct according to the scrub team. Patient was then transferred onto the bed and transported to the PACU in a stable condition. Patient tolerated the procedure well and there were no immediate complications. Postoperatively patient will receive 2 further doses of prophylactic antibiotics, DVT prophylaxis as per protocol and IV and oral analgesia as needed. Medical management as per Dr. Baker team. Patient can be mobilized on the first postoperative day with a walker, weight bearing on the right side as tolerated. Implant: Synthes 6.5 mm cannulated hip screws 3- 85mm with washer and 80 mm x 2 without washers. Condition: stable Disposition: PACU Specimens:: None Complications:: None
[2019-04-13 06:25] LABS: Basophils % 0.1 % (0.1-2.0); Eosinophils # 0.1 K/mm3 (0.0-0.4); Eosinophils % 0.4 % (0.1-12.0); Hematocrit 36.9 % (37.0-47.0); Hemoglobin 11.4 g/dL (12.2-16.2); Lymphocytes # 1.9 K/mm3 (0.7-4.5); Mean Corpuscular HGB Conc 30.8 g/dL (31.8-35.4); Mean Corpuscular Volume 79.9 fl (81-99); Mean Platelet Volume 7.2 fl (7.4-10.4); Monocytes # 0.6 K/mm3 (0.1-1.0); Monocytes % 4.4 % (1.7-9.3); Neutrophils # 9.9 K/mm3 (1.8-7.8); Neutrophils % 80.1 % (37.0-80.0); Platelet Count 250 K/mm3 (142-424); Red Blood Count 4.62 M/mm3 (4.20-5.40); White Blood Count 12.3 K/mm3 (4.8-10.8)
[2019-04-13 06:58] LABS: Albumin Level 2.8 gm/dL (3.4-5.0); Albumin/Globulin Ratio 0.8 (1.1-1.8); Anion Gap 14.5 mEq/L (5-15); Bilirubin,Total 0.3 mg/dL (0.2-1.0); Calcium 8.2 mg/dL (8.5-10.1); Globulin 3.4 gm/dl (1.3-3.2); Total Protein,Serum 6.2 gm/dL (6.4-8.2)
--- NOTE | 2019-04-13 07:18 | Progress Note ---
Internal Medicine - PN: Subj *Date: 04/13/19 *Time: 07:17 Interval history: Patient complains of right hip pain this morning. She underwent successful cannulated screw fixation of the right hip yesterday. She admits she has been made more comfortable by repositioning. Exam Vital signs and Labs for Last 24 Hours: Temp Pulse Resp BP Pulse Ox 98.1 F 80 19 147/64 H 94 L 04/13/19 04:00 04/13/19 04:00 04/13/19 04:00 04/13/19 04:00 04/13/19 04:00 Laboratory Results - last 24 hr 04/13/19 06:04: WBC 12.3 H, RBC 4.62, Hgb 11.4 L, Hct 36.9 L, MCV 79.9 L, MCH 24.6 L, MCHC 30.8 L, RDW 23.0 H, Plt Count 250, MPV 7.2 L, Neut % (Auto) 80.1 H, Lymph % (Auto) 15.0, [place] % (Auto) 4.4, Eos % (Auto) 0.4, Baso % (Auto) 0.1, Neut # (Auto) 9.9 H, Lymph # (Auto) 1.9, [place] # (Auto) 0.6, Eos # (Auto) 0.1, Baso # (Auto) 0.0 04/13/19 06:04: Sodium 142, Potassium 3.5, Chloride 107, Carbon Dioxide 24, Anion Gap 14.5, BUN 8, Creatinine 0.73, Estimated Creat Clear 55, Estimated GFR 81, Est GFR ( Amer) 98 D, Glucose 94, Calcium 8.2 L, Total Bilirubin 0.3, AST 11 L, ALT 14, Alkaline Phosphatase 64, Total Protein 6.2 L, Albumin 2.8 L D, Globulin 3.4 H, Albumin/Globulin Ratio 0.8 L I & O for Last 24 hours: Intake & Output 04/10/19 04/11/19 04/12/19 04/13/19 11:59 11:59 11:59 11:59 Intake Total 167 / 167 1413 / 1413 Output Total 450 / 450 1500 / 1500 Balance -283 / -283 -87 / -87 Weight 128 lb 9 oz 131 lb - Constitutional no acute distress - *Routine Respiratory Exam Present: CTA bilaterally - *Routine Cardiovascular Exam Present: RRR, Normal S1, Normal S2 - *Routine Abdominal Exam Present: soft, normoactive bowel sounds Assessment and Plan (1) Closed right hip fracture Current visit: Yes Status: Acute Category: Medical Code(s): S72.001A - Fracture of unspecified part of neck of right femur, initial encounter for closed fracture (2) Gastroesophageal reflux disease Current visit: Yes Status: Acute Category: Medical Code(s): K21.9 - Gastro-esophageal reflux disease without esophagitis (3) History of aortic valve replacement with porcine valve Current visit: Yes Status: Acute Category: Surgical Code(s): Z95.3 - Presence of xenogenic heart valve - Assessment and plan all Dx Assessment and Plan for all problems:: PT and OT eval today
--- NOTE | 2019-04-13 12:24 | Progress Note ---
Subjective Date: 04/13/19 Time: 12:00 Principal diagnosis: Fracture neck of femur, right Interval history: Patient is status post right hip cannulated screw fixation, post op day #1. Patient is sitting out in the chair. She says she is doing well and reports no major problems. Patient has minimal pain and says it's well-controlled with medication. She also reports being nauseous in the morning which has improved following medication. No history of any cough, chest pain, shortness of breath or palpitations. Patient says she is eating and drinking well. No history of any distal tingling or numbness. She has started physical therapy and is happy with her mobilization this morning. PN: Obj Ex Vital signs: Temp Pulse Resp BP Pulse Ox 98.6 F 77 20 142/59 H 97 04/13/19 07:50 04/13/19 07:50 04/13/19 08:44 04/13/19 07:50 04/13/19 07:50 Narrative: Laboratory Results - last 24 hr 04/13/19 06:04: WBC 12.3 H, RBC 4.62, Hgb 11.4 L, Hct 36.9 L, MCV 79.9 L, MCH 24.6 L, MCHC 30.8 L, RDW 23.0 H, Plt Count 250, MPV 7.2 L, Neut % (Auto) 80.1 H, Lymph % (Auto) 15.0, [place] % (Auto) 4.4, Eos % (Auto) 0.4, Baso % (Auto) 0.1, Neut # (Auto) 9.9 H, Lymph # (Auto) 1.9, [place] # (Auto) 0.6, Eos # (Auto) 0.1, Baso # (Auto) 0.0 04/13/19 06:04: Sodium 142, Potassium 3.5, Chloride 107, Carbon Dioxide 24, Anion Gap 14.5, BUN 8, Creatinine 0.73, Estimated Creat Clear 55, Estimated GFR 81, Est GFR ( Amer) 98 D, Glucose 94, Calcium 8.2 L, Total Bilirubin 0.3, AST 11 L, ALT 14, Alkaline Phosphatase 64, Total Protein 6.2 L, Albumin 2.8 L D, Globulin 3.4 H, Albumin/Globulin Ratio 0.8 L Intake & Output 08/06/2004/12/19 04/13/19 04/14/19 11:59 11:59 11:59 11:59 Intake Total 167 / 167 1533 / 1533 Output Total 450 / 450 1500 / 1500 Balance -283 / -283 33 / 33 Weight 128 lb 9 oz 131 lb Exam General appearance: alert, active, awake, no acute distress Cardiovascular: regular rate & rhythm, normal peripheral pulses Respiratory: No respiratory distress noted, speaks in full sentences ABD: soft and non tender Neuro: alert, awake, oriented x 3 Psych: normal mood and affect Genitourinary: Catheter in situ. On examination of the lower extremities the limb lengths are equal. Thigh and calf are soft and nontender. On examination of the right hip the dressings are clean, dry and intact. There is soakage of the dressings. There is no strikethrough. Distal pulses are 2+. Distal sensation is intact to light touch throughout. No motor deficits noted distally. - Urinary Catheter Management Braden Cath placed during this visit: yes Urethral indwelling: Yes Reason for continuing: Surgical procedure Insertion date: 04/12/19 Insertion time: 01:15 Progress Note: A&P (1) Closed right hip fracture Status: Acute Current Visit: Yes (2) Gastroesophageal reflux disease Status: Acute Current Visit: Yes (3) History of aortic valve replacement with porcine valve Status: Acute Current Visit: Yes Assessment and Plan for All Diagnoses:: I have reviewed the clinical and operative findings and progress with the patient. Patient is doing well and reports no problems. Patient is mobilizing well weightbearing as tolerated on the right side with the walker and to continue the same. Continue DVT prophylaxis. Discontinue IV fluids; discontinue the urinary catheter. Case management are working on discharge planning. Patient wants to go home with home health. Recommend DVT prophylaxis for 5 weeks postop- the appropriate agents include Lovenox, Aspirin 325 mg, Xarelto (Rivaroxaban), Eliquis (apixaban) and Coumadin. Follow-up in my office in 2 weeks time with check x-ray. Please feel free to call our office at [phone] for any orthopaedic questions. Medical management as per Dr. Baker
--- NOTE | 2019-04-14 07:10 | Progress Note ---
Internal Medicine - PN: Subj *Date: 04/14/19 *Time: 07:08 Interval history: Patient feels very good. She has been ambulating with a walker and has minimal pain. PT evaluated the patient and felt like she was safe for return home with home health PT. Patient did develop some nausea yesterday and believes this is because she has not received her Protonix. Exam Vital signs and Labs for Last 24 Hours: Temp Pulse Resp BP Pulse Ox 98.1 F 81 17 158/77 H 96 04/14/19 04:00 04/14/19 04:00 04/14/19 04:00 04/14/19 04:00 04/14/19 04:00 I & O for Last 24 hours: Intake & Output 04/11/19 04/12/19 04/13/19 04/14/19 11:59 11:59 11:59 11:59 Intake Total 167 / 167 1533 / 1533 1427 / 1427 Output Total 450 / 450 1500 / 1500 750 / 750 Balance -283 / -283 33 / 33 677 / 677 Weight 128 lb 9 oz 131 lb 130 lb 2 oz Narrative: She looks well. Lungs are clear. Heart has a regular rate and rhythm. Abdomen is soft and nontender with active bowel sounds Assessment and Plan (1) Closed right hip fracture Current visit: Yes Status: Acute Category: Medical Code(s): S72.001A - Fracture of unspecified part of neck of right femur, initial encounter for closed fracture (2) Gastroesophageal reflux disease Current visit: Yes Status: Acute Category: Medical Code(s): K21.9 - Gastro-esophageal reflux disease without esophagitis (3) History of aortic valve replacement with porcine valve Current visit: Yes Status: Acute Category: Surgical Code(s): Z95.3 - Presence of xenogenic heart valve - Assessment and plan all Dx Assessment and Plan for all problems:: 1. Plan to discharge home later this morning if orthopedic service is agreeable.
--- NOTE | 2019-04-14 07:14 | Discharge Summary ---
General - General Admission date:: 04/12/19 Discharge date: 04/14/19 HPI HPI: 59-year-old female presented to the ER after a fall in the hospital parking lot. Patient was here visiting family and leaned back against an object that she thought would support her weight. She was incorrect and patient ended up falling back directly landing on her bottom. She felt immediate onset of pain in the right hip. Patient was able to get to a standing position and ambulate but was seen in the emergency department and diagnosed with a femoral neck fracture. Patient is admitted for orthopedic consultation and repair. Medical history is significant for chronic cigarette use, currently half pack per day. Patient has had aortic valve replacement with tissue valve and does not require long-term anticoagulation. Patient has had some gastrointestinal surgery that she refers to as a "bypass" but is not for weight loss. Hospital Course Hospital Course: Patient was admitted on the morning of April 12. Later in the day patient underwent cannulated screw fixation of her right hip fracture by Dr. Benjamin. Postoperative course was uncomplicated. On postop day 1 patient's Braden catheter was removed. PT evaluated the patient and she did quite well with her evaluation and she was felt to be a good candidate for discharge to home with home health PT. On the morning of April 14 patient remained in good spirits and was ambulating with a walker and minimal pain. She was discharged home. Patient will have home health physical therapy and Occupational Therapy. A walker and bedside commode will be arranged. She will follow-up with Dr. Benjamin per his instructions. She will remain on aspirin 325 mg daily for DVT prophylaxis Objective Vital signs: Temp Pulse Resp BP Pulse Ox 98.1 F 81 17 158/77 H 96 04/14/19 04:00 04/14/19 04:00 04/14/19 04:00 04/14/19 04:00 04/14/19 04:00 DS: Diagnosis - Discharge Diagnosis (1) Closed right hip fracture Status: Acute (2) Gastroesophageal reflux disease Status: Acute (3) History of aortic valve replacement with porcine valve Status: Acute Discharge Plan - Patient Discharge Instructions ACTIVITY: Continue current activity DIET: continue same diet Patient Instructions: Hip Fracture, DI for Hip Fracture - Follow up Plan Follow up with: Epi Benjamin MD [Staff Physician] - Disposition: Home, Self-Halfway Medications: Home Medications Medication Instructions Recorded Confirmed Type Estradiol 0.5 mg PO DAILY 12/18/17 04/12/19 History Gabapentin [Gabapentin 300mg Cap] 300 mg PO BID 12/18/17 04/12/19 History Pantoprazole Sodium [Protonix 40mg 40 mg PO BID 04/12/19 04/12/19 History tablet] Ropinirole HCl [Ropinirole ER] 4 mg PO HS 04/12/19 04/12/19 History Temazepam [Restoril] 15 mg PO HS 04/12/19 04/12/19 History Aspirin [Aspirin 325mg Tab] 325 mg PO DAILY #30 tab 04/14/19 Rx Hydrocod/Acet 5/325 mg [[place] 1 tab PO Q4HP PRN #60 tab 04/14/19 Rx 5/325mg tablet] Prescriptions/Medication Reconciliation: New Hydrocod/Acet 5/325 mg [[place] 5/325mg tablet] 1 tab PO Q4HP PRN #60 tab PRN Reason: Moderate To Severe Pain Aspirin [Aspirin 325mg Tab] 325 mg PO DAILY #30 tab Continued Estradiol 0.5 mg PO DAILY Gabapentin [Gabapentin 300mg Cap] 300 mg PO BID Ropinirole HCl [Ropinirole ER] 4 mg PO HS Temazepam [Restoril] 15 mg PO HS Pantoprazole Sodium [Protonix 40mg tablet] 40 mg PO BID - Problem Reconciliation Problems Reviewed?: Yes
--- NOTE | 2019-04-14 10:09 | Progress Note ---
Subjective Date: 04/14/19 Time: 10:00 Principal diagnosis: Fracture neck of femur, right PN: Obj Ex Vital signs: Temp Pulse Resp BP Pulse Ox 97.7 F 83 16 155/87 H 99 04/14/19 08:00 04/14/19 08:00 04/14/19 08:00 04/14/19 08:00 04/14/19 08:00 - Urinary Catheter Management Braden Cath placed during this visit: yes Urethral indwelling: Yes Insertion date: 04/12/19 Insertion time: 01:15 Progress Note: A&P (1) Closed right hip fracture Status: Acute Current Visit: Yes (2) Gastroesophageal reflux disease Status: Acute Current Visit: Yes (3) History of aortic valve replacement with porcine valve Status: Acute Current Visit: Yes
== END 2019-04-14 13:10 | disposition home health service (06) | DRG 482 ==
LOC: ER 00:06 → 2ND 00:06 → OBSVTOIN 01:55 → 2ND 01:57
PROVIDERS: ADMIT Internal Medicine Adolescent Medicine; ATTEND Family Medicine
CPT/HCPCS: 36415; 71010; 71045; 73502; 80053; 81001; 85025; 85610; 85730; 93005; 96374; 96375; 97116; 97161; 97166; 97535; 99285; C1713; J2405; J2710

== ENCOUNTER → 2019-04-28 09:48 | Outpatient (CLI) | payer OTHER, SELFPAY ==
--- NOTE | 2019-04-28 10:01 | XR_ITS ---
PROCEDURE: XR HIP RT 2-3V W/PELVIS CLINICAL INDICATION: sp right cannulated screw fixation Follow-up ORIF right hip COMPARISON: Hip R from 04/12/2019 FINDINGS: Three cannulated screws are present within the right proximal femur from the base of the greater trochanter directed obliquely to this femoral head stabilizing the femoral neck fracture which is in good alignment. IMPRESSION: Good alignment status post ORIF right femoral neck fracture Dictated by: Jeffrey Ramires MD 04/28/2019 11:03 Signed by: <Electronically signed by Jeffrey Ramires MD in [facility]> 04/28/2019 11:03
== END ==
PROVIDERS: PCP Nurse Practitioner Family; Visit Provider Orthopaedic Surgery
DX: S72.001A Fracture of unspecified part of neck of right femur, initial encounter for closed fracture (principal); Z48.89 Encounter for other specified surgical aftercare
CPT/HCPCS: 73502

== ENCOUNTER → 2019-05-26 10:03 | Outpatient (CLI) | payer OTHER, SELFPAY ==
--- NOTE | 2019-05-26 10:07 | XR_ITS ---
PROCEDURE: XR HIP RT 2-3V W/PELVIS CLINICAL INDICATION: sp RT hip cannulated screw fixation follow up Follow-up ORIF COMPARISON: XR HIP RT 2-3V W/PELVIS from 04/28/2019 FINDINGS: Three cannulated screws remain in place stabilizing the right femoral neck fracture which is in good alignment. No other significant anomalies evident. IMPRESSION: Good alignment status post cannulated screw fixation of the right femoral neck Dictated by: Jeffrey Ramires MD 05/26/2019 11:24 Electronically signed by Jeffrey Ramires MD in [facility] 05/26/2019 11:24
== END ==
PROVIDERS: PCP Nurse Practitioner Family; Visit Provider Orthopaedic Surgery
DX: Z09 Encounter for follow-up examination after completed treatment for conditions other than malignant neoplasm (principal); M25.551 Pain in right hip
CPT/HCPCS: 73502

== ENCOUNTER → 2019-05-29 08:51 | Outpatient (CLI) | payer OTHER, SELFPAY ==
--- NOTE | 2019-05-29 08:51 | XR_ITS ---
PROCEDURE: XR DEXA AXIAL SKELETON CLINICAL HISTORY: evaluate for osteoporosis COMPARISON: No exams were available for comparison FINDINGS: Lumbar spine (L1 through L4), BMD 1.121, T-score -0.5. Left hip (neck), BMD 0.756, T-score -2.0. Left hip (Total), BMD 0.751, T-score -2.0. IMPRESSION: Osteopenia. Dictated by: Brian Duffy 06/05/2019 14:26 Electronically signed by Brian Duffy in [facility] 06/05/2019 14:26
== END ==
PROVIDERS: PCP Nurse Practitioner Family; Visit Provider Orthopaedic Surgery
DX: M81.0 Age-related osteoporosis without current pathological fracture (principal)
CPT/HCPCS: 77080

== ENCOUNTER → 2020-02-16 07:04 | Outpatient (CLI) | payer OTHER, SELFPAY ==
[2020-02-16 07:26] LABS: Basophils # 0.1 K/mm3 (0-0.2); Basophils % 0.8 % (0.1-2.0); Eosinophils # 0.2 K/mm3 (0.0-0.4); Eosinophils % 1.7 % (0.1-12.0); Hematocrit 48.6 % (37.0-47.0); Hemoglobin 16.2 g/dL (12.2-16.2); Lymphocytes # 2.3 K/mm3 (0.7-4.5); Lymphocytes % 22.2 % (10-50); Mean Corpuscular HGB Conc 33.4 g/dL (31.8-35.4); Mean Corpuscular Hemoglobin 31.5 pg (27.0-31.2); Mean Corpuscular Volume 94.4 fl (81-99); Mean Platelet Volume 7.7 fl (7.4-10.4); Monocytes # 0.3 K/mm3 (0.1-1.0); Monocytes % 2.9 % (1.7-9.3); Neutrophils # 7.5 K/mm3 (1.8-7.8); Neutrophils % 72.4 % (37.0-80.0); Platelet Count 248 K/mm3 (142-424); Red Blood Count 5.14 M/mm3 (4.20-5.40); Red Cell Distribution Width 15.2 % (11.5-17.5); White Blood Count 10.4 K/mm3 (4.8-10.8)
[2020-02-16 08:13] LABS: Erythrocyte Sedimentation Rate 17 mm/hr (0-30)
[2020-02-16 08:45] LABS: Chloride 111 mmol/L (98-107); Potassium 3.5 mmoL/L (3.5-5.1); Sodium 139 mmol/L (136-145)
[2020-02-16 08:47] LABS: Amylase 49 U/L (30-110); Blood Urea Nitrogen 17 mg/dl (7-17)
[2020-02-16 08:48] LABS: Alanine Aminotransferase 21 U/L (12-78); Albumin Level 4.5 g/dl (3.5-5.0); Albumin/Globulin Ratio 1.7 (1.1-1.8); Alkaline Phosphatase 105 U/L (38-126); Aspartate Amino Transferase 37 U/L (14-36); Bilirubin,Total 0.6 mg/dl (0.2-1.3); Calcium 9.3 mg/dl (8.4-10.2); Carbon Dioxide 17 mmol/L (22.0-30.0); Estimated Glomerular Filt Rate 73 ml/min (>60); GFR (African American) 88 ML/MIN (>60); Globulin 2.7 g/dL (1.3-3.2); Glucose 91 mg/dl (74-100); Lipase 134 U/L (23-300); Total Protein,Serum 7.2 g/dl (6.3-8.2)
[2020-02-16 08:49] LABS: Anion Gap 14.5 mEq/L (5-15)
== END ==
PROVIDERS: Visit Provider Nurse Practitioner Family
DX: R10.10 Upper abdominal pain, unspecified (principal); R19.7 Diarrhea, unspecified; R11.0 Nausea; R63.4 Abnormal weight loss
CPT/HCPCS: 80053; 82150; 83690; 85025; 85651; 87045; 87493

== ENCOUNTER → 2020-02-29 09:38 | Outpatient (CLI) | payer OTHER, SELFPAY ==
[2020-02-29 11:29] LABS: Blood Urea Nitrogen 15 mg/dl (7-17); Estimated Glomerular Filt Rate 85 ml/min (>60); GFR (African American) 103 ML/MIN (>60)
== END ==
PROVIDERS: Visit Provider Nurse Practitioner Family
DX: R10.10 Upper abdominal pain, unspecified (principal); R63.4 Abnormal weight loss
CPT/HCPCS: 36415; 82565; 84520

== ENCOUNTER → 2020-03-02 11:07 | Outpatient (CLI) | payer OTHER, SELFPAY ==
--- NOTE | 2020-03-02 11:13 | CT_ITS ---
PROCEDURE: CT ABDOMEN W CON CLINICAL HISTORY: UPPER ABD PAIN,N/D,WEIGHT LOSS COMPARISON: ABDW CT abdomen w con from 05/30/2018 TECHNIQUE: 75 mL Optiray 350. Oral Readi-Cat Axial images obtained with sagittal and coronal reformats. All CT scans at the facility use one or more dose reduction, viz: automated exposure control, ma/kV adjustment per patient size (including targeted exams where dose is matched to indication, i.e. head), or iterative reconstruction technique. FINDINGS: Lung bases are clear. There has been a prior cholecystectomy. There is pneumobilia with biliary ectasia. There is unusual collection of gas and soft tissue density within a prominent common hepatic duct. This area measures approximately 2 cm. A stone or even mass in the common bile duct is a consideration. MRI with MRCP is suggested for further evaluation. The liver has an otherwise unremarkable appearance. The spleen adrenal glands pancreas and kidneys are unremarkable. There are few small [place] pancreatic and retroperitoneal lymph nodes. No intestinal obstruction or free air. Degenerative disc disease is present at L5-S1. IMPRESSION: Prior cholecystectomy. There is an unusual area of gas and soft tissue density in the common hepatic duct which is somewhat dilated. Developing stones or soft tissue mass is a consideration. Suggest MRI and MRCP for further evaluation. There is biliary ectasia and pneumobilia. Dictated by: Jeffrey Ramires MD 03/03/2020 12:02 Electronically signed by Jeffrey Ramires MD in [facility] 03/03/2020 12:02
== END ==
PROVIDERS: PCP Nurse Practitioner Family; Visit Provider Nurse Practitioner Family
DX: R10.10 Upper abdominal pain, unspecified (principal); R19.7 Diarrhea, unspecified; R11.0 Nausea; R63.4 Abnormal weight loss
CPT/HCPCS: 74160; Q9967

== ENCOUNTER → 2020-04-13 10:55 | Outpatient (CLI) | payer OTHER, SELFPAY ==
--- NOTE | 2020-04-13 10:57 | MR_ITS ---
PROCEDURE: MR ABDOMEN WO CON CLINICAL INDICATION: ABNORMAL CT SCAN PRIOR GB SURGERY X20YRS AGO. MID ABD PAIN WORSE AFTER EATING. NAUSEA AND VOMITING. ABNORMAL CT SCAN 20 possible mass in the common hepatic duct COMPARISON: CT ABDPELW/O CT ABD PELVIS W/O CONTRAST from 06/24/[address] abdomen w con from 05/30/[address] ABDOMEN W CON from 03/02/2020 TECHNIQUE: Routine multiplanar multi echo sequences are performed without gadolinium enhancement. FINDINGS: There are post cholecystectomy changes.. There is biliary dilatation both intra and extrahepatic. There is an air-fluid level in the common hepatic duct. With presence of air within the common bile duct is somewhat difficult to evaluate for common duct stones as both show low areas of signal intensity. However, there does appear to be prominent stones within the mid and distal aspect of the common bile duct measuring to 1.5 and 0.9 cm. Common bile duct is dilated at 17 mm. Debris is present in the common hepatic duct and could be due to small stones and/or sludge. Pancreatic duct is upper limits of normal at 3 mm. There are small bilateral renal cortical cyst. IMPRESSION: Status post cholecystectomy with dilated common bile duct with choledocholithiasis and pneumobilia Dictated b Jeffrey Ramires MD 04/15/2020 09:00 Jeffrey Ramires MD in [facility] 04/15/2020 09:00
== END ==
PROVIDERS: PCP Nurse Practitioner Family; Visit Provider Nurse Practitioner Family
DX: R93.89 Abnormal findings on diagnostic imaging of other specified body structures (principal)
CPT/HCPCS: 74181; 76376

== ENCOUNTER → 2020-08-04 09:21 | Outpatient (CLI) | payer OTHER, SELFPAY ==
--- NOTE | 2020-08-04 09:27 | XR_ITS ---
PROCEDURE: XR THORACIC SPINE 3V CLINICAL INDICATION: THORACIC PAIN COMPARISON: No exams were available for comparison FINDINGS: No fracture or dislocation. No lytic or blastic change. There is normal mineralization. Normal alignment. No significant degenerative changes. Of the thoracic spine. There is degenerative disc disease at C5-C6 and C6-C7. There is straightening of the thoracic kyphosis with some minimal anterior osteophytes noted at T9-T10. There has been a prior median sternotomy and there is a biliary stent in place. Other findings:None. IMPRESSION: Degenerative changes of the cervical spine with minimal degenerative change of the thoracic spine and straightening of the thoracic kyphosis. This could be seen with muscle spasm or patient positioning Dictated by: Jeffrey Ramires MD 08/04/2020 17:35 Jeffrey Ramires MD in [facility] 08/04/2020 17:35
== END ==
PROVIDERS: PCP Nurse Practitioner Family; Visit Provider Nurse Practitioner Family
DX: M54.6 Pain in thoracic spine (principal)
CPT/HCPCS: 72072

== ENCOUNTER → 2020-09-15 09:58 | Outpatient (CLI) | payer OTHER, SELFPAY ==
--- NOTE | 2020-09-15 10:04 | XR_ITS ---
PROCEDURE: XR RIBS BI MIN 4V W CXR1V CLINICAL INDICATION: YA RIB PAIN Left posterior rib pain COMPARISON: CR CXR1 CHEST-PORTABLE from 07/28/2014 CT CTAC CTA-CHEST from 03/26/2017 CR CXR1 CHEST-PORTABLE from 03/26/2017 DX CXR2V XR chest 2V from 04/29/2018 FINDINGS: Frontal view of the chest shows no acute finding. No acute fracture or dislocation is evident. There is some cortical thickening involving the lateral aspect of the left 6th rib suggesting an old fracture. No lytic or blastic change. A tubular density is present in the right upper quadrant and may represent a biliary stent. Pneumobilia is noted. IMPRESSION: No acute finding. Old left 6th rib fracture. Dictated by: Jeffrey Ramires MD 09/15/2020 16:45 Jeffrey Ramires MD in [facility] 09/15/2020 16:45
== END ==
PROVIDERS: PCP Nurse Practitioner Family; Visit Provider Nurse Practitioner Family
DX: R07.81 Pleurodynia (principal)
CPT/HCPCS: 71111

== ENCOUNTER → 2020-12-21 09:37 | Outpatient (CLI) | payer OTHER, SELFPAY | PROVIDERS: PCP Nurse Practitioner Family; Visit Provider Internal Medicine Gastroenterology | DX: Z01.818 Encounter for other preprocedural examination (principal); Z11.52 Encounter for screening for COVID-19 | CPT/HCPCS: U0003 ==

== ENCOUNTER → 2021-04-10 12:29 | Outpatient (CLI) | payer OTHER, SELFPAY ==
--- NOTE | 2021-04-10 12:44 | XR_ITS ---
PROCEDURE: XR THORACIC SPINE 3V CLINICAL INDICATION: LT THORACIC BACK PAIN COMPARISON: CT CTAC CTA-CHEST from 03/26/2017 CR XR THORACIC SPINE 3V from 08/04/2020 FINDINGS: No fracture or dislocation. No lytic or blastic change. There is normal mineralization. There has been a prior CABG. A linear opacity overlies the right apex of unknown etiology and could be something upon the patient. Other findings:None. IMPRESSION: No change with no acute finding Dictated by: Jeffrey Ramires MD 04/10/2021 13:09 Jeffrey Ramires MD in [facility] 04/10/2021 13:09
--- NOTE | 2021-04-10 12:44 | XR_ITS ---
PROCEDURE: XR KUB CLINICAL INDICATION: LT FLANK PAIN COMPARISON: CR KUB KUB (SINGLE VIEW) from 05/06/[address] abdomen w con from 05/30/[address] ABDOMEN W CON from 03/02/2020 FINDINGS: Mild amount of retained colonic feces. Surgical clips right upper quadrant. Small calcific densities overlie the upper pole of the left kidney measuring up to 5 mm suggesting left nephrolithiasis. There are multiple calcifications in the left mid pelvic region unchanged from an older study 05/06/2015 consistent vascular calcifications. There are pins in the right hip. Mild lumbar scoliosis convex left IMPRESSION: Left nephrolithiasis Dictated by: Jeffrey Ramires MD 04/10/2021 13:13 Jeffrey Ramires MD in [facility] 04/10/2021 13:13
[2021-04-10 12:55] LABS: Basophils # 0.1 K/mm3 (0-0.2); Eosinophils # 0.2 K/mm3 (0.0-0.4); Eosinophils % 1.4 % (0.1-12.0); Hematocrit 42.8 % (37.0-47.0); Hemoglobin 14.4 g/dL (12.2-16.2); Lymphocytes # 2.6 K/mm3 (0.7-4.5); Lymphocytes % 21.4 % (10-50); Mean Corpuscular HGB Conc 33.5 g/dL (31.8-35.4); Mean Corpuscular Volume 92.4 fl (81-99); Mean Platelet Volume 8.1 fl (7.4-10.4); Monocytes # 0.4 K/mm3 (0.1-1.0); Monocytes % 2.9 % (1.7-9.3); Neutrophils % 73.3 % (37.0-80.0); Platelet Count 283 K/mm3 (142-424); Red Blood Count 4.64 M/mm3 (4.20-5.40); Red Cell Distribution Width 16.5 % (11.5-17.5); White Blood Count 12.3 K/mm3 (4.8-10.8)
[2021-04-10 13:15] LABS: Alanine Aminotransferase 13 U/L (12-78); Albumin Level 4.2 g/dl (3.5-5.0); Albumin/Globulin Ratio 1.4 (1.1-1.8); Alkaline Phosphatase 89 U/L (38-126); Amylase 59 U/L (30-110); Anion Gap 12.9 mEq/L (5-15); Aspartate Amino Transferase 24 U/L (14-36); Bilirubin,Total 0.4 mg/dl (0.2-1.3); Blood Urea Nitrogen 15 mg/dl (7-17); Carbon Dioxide 16 mmol/L (22.0-30.0); Chloride 113 mmol/L (98-107); Estimated Glomerular Filt Rate 72 ml/min (>60); GFR (African American) 88 ML/MIN (>60); Globulin 3.1 g/dL (1.3-3.2); Glucose 89 mg/dl (74-100); Lipase 365 U/L (23-300); Potassium 3.9 mmoL/L (3.5-5.1); Sodium 138 mmol/L (136-145); Total Protein,Serum 7.3 g/dl (6.3-8.2)
== END ==
PROVIDERS: Visit Provider Nurse Practitioner Family
DX: R10.11 Right upper quadrant pain (principal); R10.9 Unspecified abdominal pain; M54.6 Pain in thoracic spine
CPT/HCPCS: 36415; 72072; 74018; 80053; 82150; 83690; 85025

== ENCOUNTER → 2021-04-18 16:04 | Outpatient (CLI) | payer OTHER, SELFPAY | PROVIDERS: Visit Provider Urology | DX: N20.0 Calculus of kidney (principal) | CPT/HCPCS: 87086; 87088; 87186 ==

== ENCOUNTER → 2021-05-01 10:08 | Outpatient (CLI) | payer OTHER, SELFPAY ==
[2021-05-01 10:40] LABS: Basophils # 0.1 K/mm3 (0-0.2); Basophils % 1.1 % (0.1-2.0); Eosinophils # 0.2 K/mm3 (0.0-0.4); Eosinophils % 1.4 % (0.1-12.0); Hematocrit 45.2 % (37.0-47.0); Hemoglobin 14.3 g/dL (12.2-16.2); Lymphocytes # 2.5 K/mm3 (0.7-4.5); Lymphocytes % 21.3 % (10-50); Mean Corpuscular HGB Conc 31.7 g/dL (31.8-35.4); Mean Corpuscular Hemoglobin 31.5 pg (27.0-31.2); Mean Corpuscular Volume 99.3 fl (81-99); Monocytes # 0.4 K/mm3 (0.1-1.0); Monocytes % 3.5 % (1.7-9.3); Neutrophils # 8.6 K/mm3 (1.8-7.8); Neutrophils % 72.8 % (37.0-80.0); Platelet Count 494 K/mm3 (142-424); Red Blood Count 4.55 M/mm3 (4.20-5.40); Red Cell Distribution Width 16.5 % (11.5-17.5); White Blood Count 11.7 K/mm3 (4.8-10.8)
[2021-05-01 11:20] LABS: Chloride 107 mmol/L (98-107); Potassium 4.2 mmoL/L (3.5-5.1); Sodium 142 mmol/L (136-145)
[2021-05-01 11:23] LABS: Alanine Aminotransferase 18 U/L (12-78); Albumin Level 4.1 g/dl (3.5-5.0); Albumin/Globulin Ratio 1.4 (1.1-1.8); Alkaline Phosphatase 167 U/L (38-126); Amylase 82 U/L (30-110); Anion Gap 18.2 mEq/L (5-15); Aspartate Amino Transferase 25 U/L (14-36); Bilirubin,Total 0.3 mg/dl (0.2-1.3); Blood Urea Nitrogen 20 mg/dl (7-17); Calcium 9.4 mg/dl (8.4-10.2); Carbon Dioxide 21 mmol/L (22.0-30.0); Estimated Glomerular Filt Rate 63 ml/min (>60); GFR (African American) 77 ML/MIN (>60); Glucose 88 mg/dl (74-100); Total Protein,Serum 7.1 g/dl (6.3-8.2)
[2021-05-01 13:48] LABS: Lipase 737 U/L (23-300)
== END ==
PROVIDERS: Visit Provider Nurse Practitioner Family
DX: R10.10 Upper abdominal pain, unspecified (principal); R11.2 Nausea with vomiting, unspecified
CPT/HCPCS: 36415; 80053; 82150; 83690; 85025

== ENCOUNTER 2021-08-13 08:04 | Outpatient (CLI) | payer OTHER, SELFPAY ==
[2021-08-13] VITALS (9 sets, daily range): BP systolic 90–119; BP diastolic 55–70; PULSE 63–78; RESP 16–18; TEMP 36.9; O2SAT 96–100
== END 2021-08-13 11:00 | disposition home or self-care (01) ==
LOC: INF 08:05
PROVIDERS: PCP Nurse Practitioner Family; Visit Provider Nurse Practitioner Family
DX: U07.1 COVID-19 (principal); Z23 Encounter for immunization
CPT/HCPCS: 96365

== ENCOUNTER → 2021-09-12 10:04 | Outpatient (CLI) | payer OTHER, SELFPAY ==
[2021-09-12 11:41] LABS: Alanine Aminotransferase 12 U/L (12-78); Albumin Level 4.2 g/dl (3.5-5.0); Albumin/Globulin Ratio 1.6 (1.1-1.8); Alkaline Phosphatase 74 U/L (38-126); Anion Gap 14.4 mEq/L (5-15); Aspartate Amino Transferase 24 U/L (14-36); Bilirubin,Total 0.4 mg/dl (0.2-1.3); Blood Urea Nitrogen 15 mg/dl (7-17); Calcium 9.1 mg/dl (8.4-10.2); Carbon Dioxide 17 mmol/L (22.0-30.0); Chloride 112 mmol/L (98-107); Estimated Glomerular Filt Rate 85 ml/min (>60); GFR (African American) 102 ML/MIN (>60); Globulin 2.6 g/dL (1.3-3.2); Glucose 75 mg/dl (74-100); Lipase 138 U/L (23-300); Potassium 4.4 mmoL/L (3.5-5.1); Sodium 139 mmol/L (136-145); Total Protein,Serum 6.8 g/dl (6.3-8.2)
== END ==
PROVIDERS: PCP Nurse Practitioner Family; Visit Provider Physician Assistant Medical
DX: R10.10 Upper abdominal pain, unspecified (principal); K83.1 Obstruction of bile duct
CPT/HCPCS: 36415; 80053; 83690

== ENCOUNTER 2021-10-03 11:29 | Observation (INO) | payer OTHER, SELFPAY ==
[2021-10-03] VITALS (7 sets, daily range): BP systolic 130–179; BP diastolic 70–94; PULSE 70–97; RESP 17–20; TEMP 36.6–37.1; O2SAT 95–100; BMI 22.8; BMI 20.1
--- NOTE | 2021-10-03 11:32 | CT_ITS ---
FINAL REPORT CLINICAL HISTORY: r/o stroke, stroke protocol COMPARISON: March 26, 2017 FINDINGS: Axial images of the head were obtained without contrast. Coronal reformatted images were also obtained.This study was performed with techniques to keep radiation doses as low as reasonably achievable (ALARA). Individualized dose reduction techniques using automated exposure control or adjustment of mA and/or kV according to the patient's size were employed. There is no evidence of intracranial hemorrhage or mass. The ventricular size is within normal limits. There is no evidence of shift of the midline structures. There are probable small chronic lacunar infarcts in the right internal capsule and at the head of the right caudate. No abnormal extra axial fluid collection is identified. No skull abnormality is seen on the bone window images. IMPRESSION: No acute intracranial abnormality. Small probable chronic lacunar infarcts as above. If indicated, MRI could further evaluate. Reviewed, Interpreted and Dictated by Charles Wu III, MD Transcribed by Garcia May Authenticated by Charles Wu III, MD on 10/03/2021 11:47:40 AM [facility]
--- NOTE | 2021-10-03 11:33 | PC.NURSE ---
Patient in CT
--- NOTE | 2021-10-03 11:36 | HMH.EDGENADL ---
ED Disposition Clinical Impression: SIRS (systemic inflammatory response syndrome), TIA (transient ischemic attack) Disposition: Admitted as Observation Condition on Discharge: Good Referrals: Betty Antonio APRN [Primary Care Provider] - - Critical Care Critical Care Time: No Attestation: On 10/03/21, the high probability of a clinically significant, sudden or life threatening deterioration of the following system(s) required my full and direct attention, intervention and personal management. The time I documented below is in addition to time spent performing reported procedures but includes the following listed in this critical care notation. Medical Decision Making - Medical Records Medical records reviewed: Yes: I reviewed the patient's medical records. - Suleman Inquiry Pt receiving controlled substance: No Vital Signs: 10/03/21 11:48 10/03/21 13:59 10/03/21 15:10 Temperature 98.7 F Temperature Source Oral Pulse Rate 97 H 82 Pulse Rate [Left Radial] 88 Respiratory Rate 17 Blood Pressure 149/86 H 130/91 H Blood Pressure [Right Arm] 177/94 H Blood Pressure Mean [Right Arm] 121 02 Sat by Pulse Oximetry 99 99 95 Oxygen Delivery Method Room Air Room Air Room Air - Lab Data Lab Results 10/03/21 12:09: WBC 12.4 H, RBC 4.92, Hgb 15.8, Hct 49.7 H, MCV 101.0 H, MCH 32.0 H, MCHC 31.7 L, RDW 16.1, Plt Count 443 H, MPV 7.9, Neut % (Auto) 75.2, Lymph % (Auto) 17.3, [place] % (Auto) 2.8, Eos % (Auto) 2.5, Baso % (Auto) 2.1 H, Neut # (Auto) 9.3 H, Lymph # (Auto) 2.1, [place] # (Auto) 0.4, Eos # (Auto) 0.3, Baso # (Auto) 0.3 H 10/03/21 12:09: Sodium 137, Potassium 4.2, Chloride 110 H, Carbon Dioxide 19 L, Anion Gap 12.2, BUN 20 H, Creatinine 0.70, Estimated Creat Clear 52, Estimated GFR 85, Est GFR ( Amer) 102, Glucose 115 H, Calcium 10.6 H, Total Bilirubin 0.4, AST 25, ALT 14, Alkaline Phosphatase 79, Total Protein 8.0, Albumin 4.8, Globulin 3.2, Albumin/Globulin Ratio 1.5 10/03/21 13:53: Urine Color Yellow, Urine Appearance Clear, Urine pH 6.0, Ur Specific [place] 1.025, Urine Protein Negative, Urine Glucose (UA) Negative, Urine Ketones Trace, Urine Blood Trace-i, Urine Nitrate Positive, Urine Bilirubin Negative, Urine Urobilinogen 0.2, Ur Leukocyte Esterase Negative, Urine RBC 3-5, Urine WBC Occasional, Ur Squamous Epith Cells Occasional, Urine Bacteria 4+ 10/03/21 13:53: Lactate 5.1 H Result diagrams: 10/03/21 12:09 10/03/21 12:09 Orders (Tests/Meds): ED MEDICATIONS Generic Name Dose Route Start Last Admin Trade Name Freq PRN Reason Stop Dose Admin Ceftriaxone Sodium 2 gm/ 100 mls @ 200 mls/hr 10/03/21 14:30 10/03/21 14:29 Sodium Chloride IV 10/17/21 14:29 200 mls/hr Q24H ENIO Administration Discontinued Medications Generic Name Dose Route Start Last Admin Trade Name Freq PRN Reason Stop Dose Admin Gadoteridol 10 ml 10/03/21 13:34 10/03/21 13:34 Gadoteridol Inj 17ml Syringe IV 10/03/21 13:35 10 ml ONCE ONE Administration Sodium Chloride 1,000 mls @ 999 mls/hr 10/03/21 11:45 10/03/21 12:57 Sod Chlor 0.9% 1000ml Bag IV 10/03/21 12:45 Not Given .Q1H1M ENIO Sodium Chloride 10 ml 10/03/21 13:34 10/03/21 13:34 Sodium Chloride 0.9% 10ml Syr (Rad Only) IV 10/03/21 13:35 10 ml ONCE ONE Administration ORDERS Category Date Time Status Rapid PCR Covid and Flu A/B Stat Lab 10/03/21 14:41 Received Blood Culture Stat Micro 10/03/21 14:21 Received Urine Culture Stat Micro 10/03/21 13:53 Received Medical Decision Narrative: ekg by me nsr, lae, no st elev discussed with dr zuleta accepts obs here General Adult HPI - General Stated complaint: stroke symptoms Time Seen by Provider: 10/03/21 11:36 - History of Present Illness HPI narrative: sudden onset blank stare while sitting,brief, resolved, 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
--- NOTE | 2021-10-03 11:45 | ECG_ITS ---
APPROVED REPORT Exam: Resting ECG HR:84 bpm ECG Measurements Heart Rate 84 AXES WI 165 P 78 QRSd 79 QRS 86 QT 336 T 64 QTc 378 Conclusion SINUS RHYTHM POSSIBLE LEFT ATRIAL ENLARGEMENT [-0.1mV P-WAVE IN V1/V2] NONSPECIFIC ST & T-WAVE ABNORMALITY BORDERLINE ECG UNCONFIRMED REPORT Electronically signed by : Yohan Mayer MD 10/03/2021 16:25:12
--- NOTE | 2021-10-03 11:55 | PC.NURSE ---
spoke with soniya in MRI at this time per ER MD request, states they have a pt on the table currently but can be down soon to get pt, ER is requesting MRI brain with and without and an MRA- reported that to Soniya.
--- NOTE | 2021-10-03 11:58 | MR_ITS ---
FINAL REPORT CLINICAL HISTORY: RULE OUT STROKE PRIOR CT HEAD 10-03-21 FINDINGS: Multiple projection images of the brain arterial vasculature were obtained without contrast. The raw data images were also reviewed. There is mild narrowing of the distal right ICA in the upper neck. The distal vertebral and basilar arteries have an unremarkable appearance without evidence of significant stenosis or occlusion. The proximal anterior, middle and posterior cerebral arteries have an unremarkable appearance. There is no evidence of significant stenosis or major branch occlusion. No aneurysm or vascular malformation is identified. IMPRESSION: No evidence of significant stenosis, occlusion or aneurysm. Reviewed, Interpreted and Dictated by Charles Wu III, MD Transcribed by Garcia May Authenticated by Charles Wu III, MD on 10/03/2021 02:44:09 PM [facility]
--- NOTE | 2021-10-03 11:58 | MR_ITS ---
FINAL REPORT CLINICAL HISTORY: RULE OUT STROKE PRIOR CT HEAD 10-03-21 FINDINGS: Multiplanar MR imaging of the brain was performed without and with contrast. Scattered foci of increased T2 signal are seen in the cerebral white matter that have a nonspecific appearance but likely represent mild chronic ischemic/gliotic changes. There is no evidence of intracranial hemorrhage or mass. No abnormal ventricular dilatation is identified. There is no evidence of shift of the midline structures. No abnormal extra-axial fluid collection is seen. There are several less than 5 mm chronic lacunar infarcts including in the right head of the caudate. No area of abnormal restricted diffusion is identified. The posterior fossa and brainstem have an unremarkable appearance. No abnormal contrast enhancement is seen. Normal major vessel vascular flow voids are seen. IMPRESSION: Several chronic lacunar infarcts. Mild chronic ischemic/gliotic changes. No acute intracranial abnormality. Reviewed, Interpreted and Dictated by Charles Wu III, MD Transcribed by Garcia May Authenticated by Charles Wu III, MD on 10/03/2021 02:44:07 PM [facility]
--- NOTE | 2021-10-03 12:09 | PC.NURSE ---
patient to MRI with nuclear medical tech
[2021-10-03 12:22] LABS: Basophils # 0.3 K/mm3 (0-0.2); Basophils % 2.1 % (0.1-2.0); Chloride 110 mmol/L (98-107); Eosinophils # 0.3 K/mm3 (0.0-0.4); Eosinophils % 2.5 % (0.1-12.0); Hematocrit 49.7 % (37.0-47.0); Hemoglobin 15.8 g/dL (12.2-16.2); Lymphocytes # 2.1 K/mm3 (0.7-4.5); Lymphocytes % 17.3 % (10-50); Mean Corpuscular HGB Conc 31.7 g/dL (31.8-35.4); Mean Platelet Volume 7.9 fl (7.4-10.4); Monocytes # 0.4 K/mm3 (0.1-1.0); Monocytes % 2.8 % (1.7-9.3); Neutrophils # 9.3 K/mm3 (1.8-7.8); Neutrophils % 75.2 % (37.0-80.0); Platelet Count 443 K/mm3 (142-424); Potassium 4.2 mmoL/L (3.5-5.1); Red Blood Count 4.92 M/mm3 (4.20-5.40); Red Cell Distribution Width 16.1 % (11.5-17.5); Sodium 137 mmol/L (136-145); White Blood Count 12.4 K/mm3 (4.8-10.8)
[2021-10-03 12:25] LABS: Alanine Aminotransferase 14 U/L (12-78); Albumin Level 4.8 g/dl (3.5-5.0); Albumin/Globulin Ratio 1.5 (1.1-1.8); Alkaline Phosphatase 79 U/L (38-126); Anion Gap 12.2 mEq/L (5-15); Aspartate Amino Transferase 25 U/L (14-36); Bilirubin,Total 0.4 mg/dl (0.2-1.3); Blood Urea Nitrogen 20 mg/dl (7-17); Carbon Dioxide 19 mmol/L (22.0-30.0); Creatinine Clearance Estimated 52 mL/min (50-200); Estimated Glomerular Filt Rate 85 ml/min (>60); GFR (African American) 102 ML/MIN (>60); Globulin 3.2 g/dL (1.3-3.2)
[2021-10-03 12:26] LABS: Calcium 10.6 mg/dl (8.4-10.2); Glucose 115 mg/dl (74-100)
--- NOTE | 2021-10-03 12:31 | XR_ITS ---
FINAL REPORT CLINICAL HISTORY: elev wbc, weakness COMPARISON: September 15, 2020 FINDINGS: Two views of the chest were obtained. There are postoperative changes from median sternotomy. The heart size and pulmonary vascularity are within normal limits. The mediastinum is normal. No acute pulmonary abnormality is identified. There is no pneumothorax. The bony thorax is intact. IMPRESSION: No active cardiopulmonary disease. Reviewed, Interpreted and Dictated by Charles Wu III, MD Transcribed by Mini Krause Authenticated by Charles Wu III, MD on 10/03/2021 02:43:58 PM [facility]
[2021-10-03 14:07] LABS: Microscopic, Urine URINE MICROSCOPIC (MICROSCOPIC)
[2021-10-03 14:11] LABS: Appearance,Urine CLEAR (Clear); Bilirubin,Urine Negative (Negative); Blood, Urine TRACE-I (Negative); Color,Urine YELLOW (Yellow); Glucose,Urine (UA) Negative (Negative); Ketones,Urine TRACE (Negative); Leukocyte Esterase,Urine Negative (Negative); Nitrate,Urine POSITIVE (Negative); Protein,Urine Negative (Negative); Specific Gravity, Urine 1.025 (1.005-1.030); Urobilinogen,Urine 0.2 EU/dl (0.2)
[2021-10-03 14:21] LABS: Lactic Acid 5.1 mmol/L (0.7-2.1)
--- NOTE | 2021-10-03 14:25 | PC.NURSE ---
LO KAMINSKI speaking with Dr. Baker
--- NOTE | 2021-10-03 14:29 | PC.NURSE ---
Dr Baker states she is agreeable to admit pt pending pt MRI/MRA results
[2021-10-03 14:36] LABS: Bacteria,Urine 4+ /lpf; Squamous Epithelial Cell,Urine Occasional #/hpf (0-5); WBC,Urine Occasional #/hpf (0-3)
[2021-10-03 14:56] LABS: Coronavirus 19, PCR Not Detected (NotDetected); Influenza A, PCR Not Detected (NotDetected); Influenza B, PCR Not Detected (NotDetected)
[2021-10-03 18:06] LABS: Reflex Lactic Add Lactic Reflex
--- NOTE | 2021-10-03 21:59 | HMH.PHAVTE ---
[facility] Pharmacy VTE Monitoring - Patient Demographics Admission date: 10/03/21 Report Date: 10/03/21 Time: 21:59 Allergies/Adverse Reactions: Patient Allergies levofloxacin [From LEVAQUIN] Allergy (Unknown, Verified 10/03/21 17:30) SEIZURES Height: 1.57 m Weight: 49.895 kg Patient Problems: Current Active Problems SIRS (systemic inflammatory response syndrome) (Acute) TIA (transient ischemic attack) (Acute) - VTE Risk Labs: VTE Related Lab Results Hgb 15.8 g/dL (12.2-16.2) 10/03/21 12:09 Hct 49.7 % (37.0-47.0) H 10/03/21 12:09 Plt Count 443 K/mm3 (142-424) H 10/03/21 12:09 BUN 20 mg/dl (7-17) H 10/03/21 12:09 Creatinine 0.70 mg/dl (0.52-1.04) 10/03/21 12:09 Estimated Creat Clear 52 mL/min (50-200) 10/03/21 12:09 Was VTE Risk Assessment Performed: Yes VTE Score: 3 VTE Risk Level: Low Risk Clinical Trial Participant: No - Prophylaxis VTE Prophylaxis Ordered?: Yes Types of VTE Prophylaxis: TEDS Knee High Location of Applied Device: Bilateral Lower Extremeties
[2021-10-04 04:00] VITALS: BP 122/63; PULSE 75; RESP 18; TEMP 36.8; O2SAT 98
[2021-10-04 05:01] VITALS: BMI 20.2
[2021-10-04 06:57] LABS: Chloride 109 mmol/L (98-107); Potassium 3.4 mmoL/L (3.5-5.1); Sodium 136 mmol/L (136-145)
[2021-10-04 07:00] LABS: Blood Urea Nitrogen 11 mg/dl (7-17); Creatinine Clearance Estimated 45 mL/min (50-200); Estimated Glomerular Filt Rate 101 ml/min (>60); GFR (African American) 122 ML/MIN (>60)
[2021-10-04 07:01] LABS: Anion Gap 8.4 mEq/L (5-15); Calcium 8.5 mg/dl (8.4-10.2); Carbon Dioxide 22 mmol/L (22.0-30.0); Glucose 93 mg/dl (74-100)
--- NOTE | 2021-10-04 07:34 | HMH.HPDC ---
General - General Admission date:: 10/03/21 Discharge date: 10/04/21 *Admission Date: 10/03/21 *Chief complaint: Staring spell *History of present illness: 61-year-old female presented to the emergency department yesterday with family after patient had developed staring spells with slight tremors of the extremities. Patient tells me this morning this happened one other time several years ago and she was treated as if she had had a TIA. During work-up in the emergency department patient had no acute ischemic findings but additional labs did find a urinary tract infection. Patient admits to 2 to 3 days of dysuria and incomplete bladder emptying. She has not had any fevers or chills. Patient was found to have an elevated lactic acid. Patient met SIRS criteria. She was admitted for observation. [facility] History I have reviewed the patient's past medical history: Yes Medical History: Reports:: Coronary Artery Disease, Gastroesophageal Reflux Disease(GERD), Valvular Heart Disease Denies:: Cancer, Diabetes Mellitus Type 1, Diabetes Mellitus Type 2, Internal Pacemaker, Lung Disease, MRSA, Seizures *Have you ever received a pneumonia vaccine?: No *Have you received a flu vaccine this season?: Yes Other Medical History: Reports: Cataracts, Other. Denies: Blood Transfusion Reaction Laterality Cases: Right: Arthroscopy Hip, Bilateral: Tonsillectomy Other Surgeries: Yes: No Previous Surgery, Appendectomy, Cardiac Catheterization, Cholecystectomy, Diagnostic Lap, Hysterectomy-Total, Other Valve Replacement (Bioprosthetic aortic valve replacement), Other (gastric bypass). No: Pacemaker Amputation: No Fractures: No - *Social History Last grade of school completed: High school graduate Smoking Status: Current every day smoker Tobacco Type: cigarettes # Packs/Day (cigarettes): 1 Alcohol Intake: never Alcohol Intake Frequency:: other Substance Use Type: other *Occupational Status:: unemployed Housing: house Household Members: family, children *Travel in the last 8 weeks: None Family Hx:: No significant family history Review of Systems - Review of Systems Review of systems:: pertinent systems reviewed and negative unless documented below Exam Vital signs and Labs for Last 24 Hours: Temp Pulse Resp BP Pulse Ox 98.3 F 75 18 122/63 98 10/04/21 04:00 10/04/21 04:00 10/04/21 04:00 10/04/21 04:00 10/04/21 04:00 Laboratory Results - last 24 hr 10/03/21 12:09: WBC 12.4 H, RBC 4.92, Hgb 15.8, Hct 49.7 H, MCV 101.0 H, MCH 32.0 H, MCHC 31.7 L, RDW 16.1, Plt Count 443 H, MPV 7.9, Neut % (Auto) 75.2, Lymph % (Auto) 17.3, [place] % (Auto) 2.8, Eos % (Auto) 2.5, Baso % (Auto) 2.1 H, Neut # (Auto) 9.3 H, Lymph # (Auto) 2.1, [place] # (Auto) 0.4, Eos # (Auto) 0.3, Baso # (Auto) 0.3 H 10/03/21 12:09: Sodium 137, Potassium 4.2, Chloride 110 H, Carbon Dioxide 19 L, Anion Gap 12.2, BUN 20 H, Creatinine 0.70, Estimated Creat Clear 52, Estimated GFR 85, Est GFR ( Amer) 102, Glucose 115 H, Calcium 10.6 H, Total Bilirubin 0.4, AST 25, ALT 14, Alkaline Phosphatase 79, Total Protein 8.0, Albumin 4.8, Globulin 3.2, Albumin/Globulin Ratio 1.5 10/03/21 13:53: Urine Color Yellow, Urine Appearance Clear, Urine pH 6.0, Ur Specific [place] 1.025, Urine Protein Negative, Urine Glucose (UA) Negative, Urine Ketones Trace, Urine Blood Trace-i, Urine Nitrate Positive, Urine Bilirubin Negative, Urine Urobilinogen 0.2, Ur Leukocyte Esterase Negative, Urine RBC 3-5, Urine WBC Occasional, Ur Squamous Epith Cells Occasional, Urine Bacteria 4+ 10/03/21 13:53: Lactate 5.1 H 10/03/21 14:41: SARS-CoV-2 (PCR) Not detected, Influenza A Untype (PCR) Not detected, Influenza Type B (PCR) Not detected 10/03/21 18:31: Lactate 2.0 I & O for Last 24 hours: Intake & Output 10/01/21 10/02/21 10/03/21 10/04/21 11:59 11:59 11:59 11:59 Intake Total 155 / 155 Output Total 0 / 0 Balance 155 / 155 Weight 125 lb 109 lb 11.2 oz Microbiology Reports for the Last 24 Hours:
[2021-10-04 07:43] VITALS: BP 112/61; PULSE 74; RESP 16; TEMP 36.4; O2SAT 97
[2021-10-04 07:53] LABS: Basophils # 0.2 K/mm3 (0-0.2); Basophils % 2.3 % (0.1-2.0); Eosinophils # 0.2 K/mm3 (0.0-0.4); Eosinophils % 2.8 % (0.1-12.0); Hematocrit 42.4 % (37.0-47.0); Lymphocytes # 2.3 K/mm3 (0.7-4.5); Lymphocytes % 31.9 % (10-50); Mean Corpuscular HGB Conc 31.5 g/dL (31.8-35.4); Mean Corpuscular Hemoglobin 31.9 pg (27.0-31.2); Mean Corpuscular Volume 101.3 fl (81-99); Mean Platelet Volume 7.9 fl (7.4-10.4); Monocytes # 0.3 K/mm3 (0.1-1.0); Monocytes % 4.2 % (1.7-9.3); Neutrophils # 4.2 K/mm3 (1.8-7.8); Neutrophils % 58.7 % (37.0-80.0); Platelet Count 354 K/mm3 (142-424); Red Blood Count 4.19 M/mm3 (4.20-5.40); Red Cell Distribution Width 16.1 % (11.5-17.5); White Blood Count 7.2 K/mm3 (4.8-10.8)
[2021-10-04 08:28] LABS: Hemoglobin 13.2 g/dL (12.2-16.2)
--- NOTE | 2021-10-04 08:52 | HMH.PTEV ---
Physical Therapy Evaluation Rehab PT IP Evaluation Start: 10/04/21 07:12 Freq: ONCE Status: Active Protocol: Document 10/04/21 08:50 PHOKRISTA (Rec: 10/04/21 08:52 PHORNE [id number]) Subjective/History History History 61 yowf adm to [facility] with UTI and poss TIA. She reports living with multiple family members, no steps to enter the home and is independent with all mobility prior to adm. Subjective Subjective She reports feeling much better, now at baseline. Rehab PT IP Eval Objective Appearance Patient Behavior Appropriate Patient Orientation Person,Place,Time Difficulty following instructions none Speech Pattern Clear Ambulation Patient Able to Ambulate Yes Ambulation Observation IP General Gait Pattern Observation No Deviations/Normal Ambulation Distance (feet) 30 Ambulation Assistive Device None Ambulation Ability Independent Balance Ability to Arise Able, w/o using arms Sitting Balance Steady, safe Standing Balance Narrow stance w/o support Dynamic Sitting Balance Ability Normal Dynamic Standing Balance Ability Normal Transfers Bed Transfer Ability Independent Chair Transfer Ability Independent Sit to Stand Bed Transfer Ability Independent Sit to Stand Chair Transfer Ability Independent ROM All Extremities PT ROM Status WFL MMT All Extremities PT MMT WFL Rehab PT IP prob,goals,plan Problems Date of Evaluation: 10/04/21 Discharge Plan PT Discharge Plan Pt is appropriate to return home once medically stable. G -code Required No Eval Complexity Eval Charge Codes 36462 - Moderate Complexity PHYSICIAN CERTIFICATION: I certify the specified therapy services for Caitlyn Mcbride are required, authorized, and reviewed every 30 days.
[2021-10-04 09:33] VITALS: BMI 19.8
== END 2021-10-04 13:47 | disposition home or self-care (01) ==
LOC: ER 14:31 → 2ND 17:13
PROVIDERS: Admitting Provider Family Medicine; Emergency Provider Emergency Medicine; PCP Nurse Practitioner Family; Visit Provider Family Medicine
DX: N39.0 Urinary tract infection, site not specified (principal); G45.8 Other transient cerebral ischemic attacks and related syndromes; I25.10 Atherosclerotic heart disease of native coronary artery without angina pectoris; Z79.899 Other long term (current) drug therapy; Z95.2 Presence of prosthetic heart valve; F17.210 Nicotine dependence, cigarettes, uncomplicated; Z20.822 Contact with and (suspected) exposure to COVID-19
CPT/HCPCS: 36415; 70450; 70544; 70553; 71046; 80048; 80053; 81001; 83605; 85025; 87040; 87086; 87088; 87186; 93005; 96365; 96366; 97162; 99285; A9576; C9803; G0378; J0696; U0003; U0005

== ENCOUNTER → 2022-01-04 15:48 | Outpatient (CLI) | payer OTHER, SELFPAY ==
[2022-01-04 17:29] LABS: Alanine Aminotransferase 15 U/L (12-78); Albumin Level 4.5 g/dl (3.5-5.0); Albumin/Globulin Ratio 1.8 (1.1-1.8); Alkaline Phosphatase 79 U/L (38-126); Aspartate Amino Transferase 28 U/L (14-36); Bilirubin,Total 0.4 mg/dl (0.2-1.3); Blood Urea Nitrogen 12 mg/dl (7-17); Calcium 9.4 mg/dl (8.4-10.2); Carbon Dioxide 27 mmol/L (22.0-30.0); Chloride 106 mmol/L (98-107); Estimated Glomerular Filt Rate 85 ml/min (>60); GFR (African American) 102 ML/MIN (>60); Globulin 2.5 g/dL (1.3-3.2); Glucose 76 mg/dl (74-100); Magnesium 1.3 mg/dl (1.6-2.3); Sodium 141 mmol/L (136-145)
[2022-01-04 17:34] LABS: C-Reactive Protein 1.9 mg/L (0-4)
[2022-01-04 17:42] LABS: Troponin I < 0.01 ng/ml (0.00-0.034)
[2022-01-04 17:59] LABS: Thyroid Stimulating Hormone 3.29 uIU/mL (0.465-4.68)
[2022-01-04 18:05] LABS: Basophils # 0.2 K/mm3 (0-0.2); Basophils % 2.2 % (0.1-2.0); Eosinophils # 0.2 K/mm3 (0.0-0.4); Eosinophils % 2.4 % (0.1-12.0); Hemoglobin 14.8 g/dL (12.2-16.2); Lymphocytes # 2.5 K/mm3 (0.7-4.5); Lymphocytes % 36.1 % (10-50); Mean Corpuscular HGB Conc 32.1 g/dL (31.8-35.4); Mean Corpuscular Hemoglobin 30.3 pg (27.0-31.2); Mean Corpuscular Volume 94.6 fl (81-99); Mean Platelet Volume 8.9 fl (7.4-10.4); Monocytes # 0.4 K/mm3 (0.1-1.0); Monocytes % 5.1 % (1.7-9.3); Neutrophils # 3.7 K/mm3 (1.8-7.8); Neutrophils % 54.3 % (37.0-80.0); Platelet Count 232 K/mm3 (142-424); Red Blood Count 4.86 M/mm3 (4.20-5.40); Red Cell Distribution Width 15.2 % (11.5-17.5); White Blood Count 6.9 K/mm3 (4.8-10.8)
== END ==
PROVIDERS: PCP Nurse Practitioner Family; Visit Provider Nurse Practitioner Family
DX: R55 Syncope and collapse (principal)
CPT/HCPCS: 36415; 80053; 83735; 84443; 84484; 85025; 86140

== ENCOUNTER 2022-01-05 13:26 | Emergency (ER) | payer OTHER, SELFPAY ==
[2022-01-05 13:49] VITALS: BP 141/69; PULSE 66; RESP 16; TEMP 36.6; O2SAT 100; BMI 20.8
--- NOTE | 2022-01-05 13:57 | HMH.EDUTC ---
[facility] [place] Disposition Clinical Impression: Syncope and collapse Contusion, hip Qualifiers: Encounter type: initial encounter Laterality: unspecified laterality Qualified Code(s): S70.00XA - Contusion of unspecified hip, initial encounter Disposition: Home, Self-Care Condition on Discharge: Good Instructions: DI for Syncope in Adults (Fainting), DI for Hip Pain Additional Instructions: 48-hour Holter monitor. Return the Holter monitor to the hospital as instructed and follow-up results next week with your primary care provider. Return to the emergency department if fainting continues or new symptoms develop. Referrals: Betty Antonio APRN [Primary Care Provider] - Medical Decision Making - Suleman Inquiry Pt receiving controlled substance: No Suleman was queried for this patient: No Vital Signs: 01/05/22 13:49 01/05/22 14:00 01/05/22 14:31 Temperature 97.9 F 98.1 F Temperature Source Oral Oral Pulse Rate 58 L Pulse Rate [Left] 66 61 Pulse Rate [Orthostatic Lying] Pulse Rate [Orthostatic Standing] Respiratory Rate 16 20 Blood Pressure 127/52 L Blood Pressure [Orthostatic Lying] Blood Pressure [Orthostatic Standing] Blood Pressure [Right Arm] 141/69 H 125/55 L Blood Pressure Mean 77 Blood Pressure Mean [Right Arm] 93 78 02 Sat by Pulse Oximetry 100 97 97 Oxygen Delivery Method Room Air 01/05/22 15:00 01/05/22 15:30 01/05/22 17:30 Temperature 98.1 F Temperature Source Oral Pulse Rate 62 62 Pulse Rate [Left] Pulse Rate [Orthostatic Lying] 59 L Pulse Rate [Orthostatic Standing] 64 Respiratory Rate 20 Blood Pressure 126/64 119/70 Blood Pressure [Orthostatic Lying] 114/67 Blood Pressure [Orthostatic Standing] 109/64 L Blood Pressure [Right Arm] Blood Pressure Mean 85 Blood Pressure Mean [Right Arm] 02 Sat by Pulse Oximetry 96 Oxygen Delivery Method Room Air - Lab Data Lab Results 01/05/22 15:20: Urine Color Yellow, Urine Appearance Clear, Urine pH 6.0, Ur Specific [place] 1.010, Urine Protein Negative, Urine Glucose (UA) Negative, Urine Ketones Negative, Urine Blood Trace-i, Urine Nitrate Negative, Urine Bilirubin Negative, Urine Urobilinogen 0.2, Ur Leukocyte Esterase Negative, Urine RBC Occasional, Urine WBC Occasional, Ur Squamous Epith Cells 3-5, Urine Bacteria Trace 01/05/22 15:28: WBC 12.8 H D, RBC 5.19, Hgb 15.5, Hct 48.5 H, MCV 93.4, MCH 29.9, MCHC 32.1, RDW 15.0, Plt Count 264, MPV 8.5, Neut % (Auto) 77.2, Lymph % (Auto) 16.4, [place] % (Auto) 2.9, Eos % (Auto) 1.5, Baso % (Auto) 2.0, Neut # (Auto) 9.9 H, Lymph # (Auto) 2.1, [place] # (Auto) 0.4, Eos # (Auto) 0.2, Baso # (Auto) 0.3 H 01/05/22 15:28: Sodium 142, Potassium 3.7, Chloride 105, Carbon Dioxide 29, Anion Gap 11.7, BUN 13, Creatinine 0.70, Estimated Creat Clear 47, Estimated GFR 85, Est GFR ( Amer) 102, Glucose 91, Calcium 10.2, Total Bilirubin 0.7, AST 37 H D, ALT 16, Alkaline Phosphatase 97, Troponin I < 0.01, Total Protein 7.6, Albumin 4.4, Globulin 3.2, Albumin/Globulin Ratio 1.4 Result diagrams: 01/05/22 15:28 01/05/22 15:28 Orders (Tests/Meds): ED MEDICATIONS Discontinued Medications Generic Name Dose Route Start Last Admin Trade Name Freq PRN Reason Stop Dose Admin Sodium Chloride 10 ml 01/05/22 14:37 Sodium Chloride 0.9% 10ml Flush Syringe IV 02/04/22 14:36 NEEDED PRN Maintain IV Site Medical Decision Narrative: Patient states that she has been having episodes of syncope, states that she has passed out 3-4 times since yesterday, hit the back of her head and left hip States that she has been feeling off and having some confusion on and off and feeling foggy in her head State that she was still having pain in her left hip so she came in States that she was suppose to have MRI ordered by her PCP but hasnt done it yet. Due to patient reporting feeling of confusion and feeling off in her head discussed with patient and recommended transfer t
[2022-01-05 14:00] VITALS: BP 125/55; PULSE 61; RESP 20; TEMP 36.7; O2SAT 97; BMI 20.8
[2022-01-05 14:31] VITALS: BP 127/52; PULSE 58; O2SAT 97
--- NOTE | 2022-01-05 14:37 | CT_ITS ---
FINAL REPORT TECHNIQUE: Axial images were obtained of the cervical spine by computed tomography. Coronal and sagittal reconstruction process performed. This study was performed with techniques to keep radiation doses as low as reasonably achievable (ALARA). Individualized dose reduction techniques using automated exposure control or adjustment of mA and/or kV according to the patient''s size were employed. CLINICAL HISTORY: fall FINDINGS: Cervical vertebrae show normal height. There is moderate disc space narrowing at C5-C6 and C6-C7. There is posterior osteophyte formation particularly evident at C5-C6 with mild spinal and bilateral neural foraminal narrowing. There is endplate hypertrophy at C3-C4 with mild right neural foraminal narrowing. There is no malalignment. The facets are properly aligned. IMPRESSION: No fracture. Reviewed, Interpreted and Dictated by Adalid Salamanca MD Transcribed by Garcia May Authenticated by Adalid Salamanca MD on 01/05/2022 04:03:[address] [facility]
--- NOTE | 2022-01-05 14:37 | CT_ITS ---
FINAL REPORT TECHNIQUE: Axial CT images were performed through the head. Coronal reformatted images were submitted. This study was performed with techniques to keep radiation doses as low as reasonably achievable (ALARA). Individualized dose reduction techniques using automated exposure control or adjustment of mA and/or kV according to the patient's size were employed. CLINICAL HISTORY: fall COMPARISON: October 03, 2021 FINDINGS: The ventricles are normal in size. There are old lacunar infarcts at the head of the right caudate and at the right basal ganglia. There is no evidence of hemorrhage. There is no mass or edema identified. There is no abnormal extra-axial fluid seen. The sinuses are well aerated. There is no acute osseous abnormality. IMPRESSION: No acute intracranial process. Reviewed, Interpreted and Dictated by Adalid Salamanca MD Transcribed by Garcia May Authenticated by Adalid Salamanca MD on 01/05/2022 04:03:02 PM [facility]
--- NOTE | 2022-01-05 14:43 | PC.NURSE ---
rad notified of new orders on pt
--- NOTE | 2022-01-05 14:48 | PC.NURSE ---
pt in CT
--- NOTE | 2022-01-05 14:57 | HMH.EDGENADL ---
ED Disposition Clinical Impression: Syncope and collapse Contusion, hip Qualifiers: Encounter type: initial encounter Laterality: unspecified laterality Qualified Code(s): S70.00XA - Contusion of unspecified hip, initial encounter Disposition: Home, Self-Care Condition on Discharge: Good Instructions: DI for Syncope in Adults (Fainting), DI for Hip Pain Additional Instructions: 48-hour Holter monitor. Return the Holter monitor to the hospital as instructed and follow-up results next week with your primary care provider. Return to the emergency department if fainting continues or new symptoms develop. Referrals: Betty Antonio APRN [Primary Care Provider] - - Critical Care Critical Care Time: No Attestation: On 01/05/22, the high probability of a clinically significant, sudden or life threatening deterioration of the following system(s) required my full and direct attention, intervention and personal management. The time I documented below is in addition to time spent performing reported procedures but includes the following listed in this critical care notation. Medical Decision Making - Medical Records Medical records reviewed: Yes: I reviewed the patient's medical records. MR Comment: Discharge summary from admission on 10/03/2021 through 10/04/2021 for staring spells with tremors. Also treated for UTI. She had MRI of brain and MRA of the brain on 10/03/2021. Also had CT scan of the brain. Evidence of old lacunar infarcts, no stenoses or occlusions on MRA. - [place] Inquiry Pt receiving controlled substance: No Vital Signs: 01/05/22 13:49 01/05/22 14:00 01/05/22 14:31 Temperature 97.9 F 98.1 F Temperature Source Oral Oral Pulse Rate 58 L Pulse Rate [Left] 66 61 Pulse Rate [Orthostatic Lying] Pulse Rate [Orthostatic Standing] Respiratory Rate 16 20 Blood Pressure 127/52 L Blood Pressure [Orthostatic Lying] Blood Pressure [Orthostatic Standing] Blood Pressure [Right Arm] 141/69 H 125/55 L Blood Pressure Mean 77 Blood Pressure Mean [Right Arm] 93 78 02 Sat by Pulse Oximetry 100 97 97 Oxygen Delivery Method Room Air 01/05/22 15:00 01/05/22 15:30 Temperature Temperature Source Pulse Rate 62 Pulse Rate [Left] Pulse Rate [Orthostatic Lying] 59 L Pulse Rate [Orthostatic Standing] 64 Respiratory Rate Blood Pressure 126/64 Blood Pressure [Orthostatic Lying] 114/67 Blood Pressure [Orthostatic Standing] 109/64 L Blood Pressure [Right Arm] Blood Pressure Mean 85 Blood Pressure Mean [Right Arm] 02 Sat by Pulse Oximetry 96 Oxygen Delivery Method - Lab Data Lab Results 01/05/22 15:20: Urine Color Yellow, Urine Appearance Clear, Urine pH 6.0, Ur Specific [place] 1.010, Urine Protein Negative, Urine Glucose (UA) Negative, Urine Ketones Negative, Urine Blood Trace-i, Urine Nitrate Negative, Urine Bilirubin Negative, Urine Urobilinogen 0.2, Ur Leukocyte Esterase Negative, Urine RBC Occasional, Urine WBC Occasional, Ur Squamous Epith Cells 3-5, Urine Bacteria Trace 01/05/22 15:28: WBC 12.8 H D, RBC 5.19, Hgb 15.5, Hct 48.5 H, MCV 93.4, MCH 29.9, MCHC 32.1, RDW 15.0, Plt Count 264, MPV 8.5, Neut % (Auto) 77.2, Lymph % (Auto) 16.4, Frio % (Auto) 2.9, Eos % (Auto) 1.5, Baso % (Auto) 2.0, Neut # (Auto) 9.9 H, Lymph # (Auto) 2.1, Frio # (Auto) 0.4, Eos # (Auto) 0.2, Baso # (Auto) 0.3 H 01/05/22 15:28: Sodium 142, Potassium 3.7, Chloride 105, Carbon Dioxide 29, Anion Gap 11.7, BUN 13, Creatinine 0.70, Estimated Creat Clear 47, Estimated GFR 85, Est GFR ( Amer) 102, Glucose 91, Calcium 10.2, Total Bilirubin 0.7, AST 37 H D, ALT 16, Alkaline Phosphatase 97, Troponin I < 0.01, Total Protein 7.6, Albumin 4.4, Globulin 3.2, Albumin/Globulin Ratio 1.4 Result diagrams: 01/05/22 15:28 01/05/22 15:28 Orders (Tests/Meds): ED MEDICATIONS Generic Name Dose Route Start Last Admin Trade Name Freq PRN Reason Stop Dose Admin Sodium Chloride 10 ml 01/05/22 14:37
[2022-01-05 15:00] VITALS: BP 126/64; PULSE 62; O2SAT 96
--- NOTE | 2022-01-05 15:00 | XR_ITS ---
FINAL REPORT CLINICAL HISTORY: fall COMPARISON: May 26, 2019 FINDINGS: 2 views of the right hip and an AP pelvis were obtained. There are 3 orthopedic screws securing the right femoral neck. There is no acute fracture or dislocation. The joint spaces are intact. There are no soft tissue abnormalities. IMPRESSION: No acute process. Reviewed, Interpreted and Dictated by Adalid Salamanca MD Transcribed by Garcia May Authenticated by Adalid Salamanca MD on 01/05/2022 04:23:23 PM [facility]
--- NOTE | 2022-01-05 15:09 | XR_ITS ---
FINAL REPORT CLINICAL HISTORY: injury, fall, h/o old fx rt hip FINDINGS: 2 views of the left hip were obtained. There is no acute fracture or dislocation. The joint spaces are intact. There is an 8 mm well corticated ossific density superior to the greater trochanter that may be due to old trauma. IMPRESSION: No acute process. Reviewed, Interpreted and Dictated by Adalid Salamanca MD Transcribed by Garcia May Authenticated by Adalid Salamanca MD on 01/05/2022 04:23:23 PM [facility]
--- NOTE | 2022-01-05 15:11 | ECG_ITS ---
APPROVED REPORT Exam: Resting ECG HR:60 bpm ECG Measurements Heart Rate 60 AXES MD 200 P 69 QRSd 81 QRS 76 QT 414 T 79 QTc 414 Conclusion SINUS RHYTHM POSSIBLE LEFT ATRIAL ENLARGEMENT [-0.1mV P-WAVE IN V1/V2] BORDERLINE ECG UNCONFIRMED REPORT Electronically signed by : Yohan Mayer MD 01/06/2022 09:03:30
[2022-01-05 15:30] VITALS: BP 109/64; BP 114/67; PULSE 59; PULSE 64
[2022-01-05 15:48] LABS: Basophils # 0.3 K/mm3 (0-0.2); Eosinophils # 0.2 K/mm3 (0.0-0.4); Eosinophils % 1.5 % (0.1-12.0); Hematocrit 48.5 % (37.0-47.0); Hemoglobin 15.5 g/dL (12.2-16.2); Lymphocytes # 2.1 K/mm3 (0.7-4.5); Lymphocytes % 16.4 % (10-50); Mean Corpuscular HGB Conc 32.1 g/dL (31.8-35.4); Mean Corpuscular Hemoglobin 29.9 pg (27.0-31.2); Mean Corpuscular Volume 93.4 fl (81-99); Mean Platelet Volume 8.5 fl (7.4-10.4); Monocytes # 0.4 K/mm3 (0.1-1.0); Monocytes % 2.9 % (1.7-9.3); Neutrophils # 9.9 K/mm3 (1.8-7.8); Neutrophils % 77.2 % (37.0-80.0); Platelet Count 264 K/mm3 (142-424); Red Blood Count 5.19 M/mm3 (4.20-5.40); White Blood Count 12.8 K/mm3 (4.8-10.8)
[2022-01-05 15:49] LABS: Chloride 105 mmol/L (98-107); Potassium 3.7 mmoL/L (3.5-5.1); Sodium 142 mmol/L (136-145)
[2022-01-05 15:52] LABS: Alanine Aminotransferase 16 U/L (12-78); Albumin Level 4.4 g/dl (3.5-5.0); Albumin/Globulin Ratio 1.4 (1.1-1.8); Alkaline Phosphatase 97 U/L (38-126); Anion Gap 11.7 mEq/L (5-15); Aspartate Amino Transferase 37 U/L (14-36); Bilirubin,Total 0.7 mg/dl (0.2-1.3); Blood Urea Nitrogen 13 mg/dl (7-17); Calcium 10.2 mg/dl (8.4-10.2); Carbon Dioxide 29 mmol/L (22.0-30.0); Creatinine Clearance Estimated 47 mL/min (50-200); Estimated Glomerular Filt Rate 85 ml/min (>60); GFR (African American) 102 ML/MIN (>60); Globulin 3.2 g/dL (1.3-3.2); Glucose 91 mg/dl (74-100); Total Protein,Serum 7.6 g/dl (6.3-8.2)
[2022-01-05 16:03] LABS: Microscopic, Urine URINE MICROSCOPIC (MICROSCOPIC)
[2022-01-05 16:16] LABS: Troponin I < 0.01 ng/ml (0.00-0.034)
[2022-01-05 17:08] LABS: Appearance,Urine CLEAR (Clear); Bilirubin,Urine Negative (Negative); Blood, Urine TRACE-I (Negative); Color,Urine YELLOW (Yellow); Glucose,Urine (UA) Negative (Negative); Ketones,Urine Negative (Negative); Leukocyte Esterase,Urine Negative (Negative); Nitrate,Urine Negative (Negative); Protein,Urine Negative (Negative); RBC,Urine Occasional #/hpf (0-3); Urobilinogen,Urine 0.2 EU/dl (0.2); WBC,Urine Occasional #/hpf (0-3)
[2022-01-05 17:09] LABS: Bacteria,Urine Trace /lpf
[2022-01-05 17:30] VITALS: BP 119/70; PULSE 62; RESP 20; TEMP 36.7; O2SAT 97
== END 2022-01-05 17:30 | disposition home or self-care (01) ==
LOC: UTC 13:29 → ER 14:08
PROVIDERS: Emergency Provider Emergency Medicine; PCP Nurse Practitioner Family
DX: R55 Syncope and collapse (principal); S70.00XA Contusion of unspecified hip, initial encounter; W19.XXXA Unspecified fall, initial encounter; Z91.81 History of falling; I25.10 Atherosclerotic heart disease of native coronary artery without angina pectoris; K21.9 Gastro-esophageal reflux disease without esophagitis; Z86.79 Personal history of other diseases of the circulatory system; Z72.0 Tobacco use; Z95.3 Presence of xenogenic heart valve; Z88.1 Allergy status to other antibiotic agents
CPT/HCPCS: 70450; 72125; 73502; 80053; 81001; 84484; 85025; 93005; 93225; 93226; 99285

== ENCOUNTER → 2022-12-21 12:53 | Outpatient (CLI) | payer OTHER, SELFPAY ==
--- NOTE | 2022-12-21 13:00 | CT_ITS ---
FINAL REPORT TECHNIQUE: Axial CT images of the abdomen were obtained with IV contrast only. Coronal reformatted images were also obtained. This study was performed with techniques to keep radiation doses as low as reasonably achievable (ALARA). Individualized dose reduction techniques using automated exposure control or adjustment of mA and/or kV according to the patient''s size were employed. CLINICAL HISTORY: ELEVATED LIVER ENZYMES,RUQ ABD PAIN,WEIGHT LOSS COMPARISON: 03/02/2020 FINDINGS: The lung bases are clear. The liver has an unremarkable appearance, without evidence of mass. There are postoperative changes from cholecystectomy. There is moderate biliary ductal dilatation with pneumobilia. There is debris in the common duct since prior exam. There are multiple calcifications in the uncinate process of the pancreas, increased somewhat from prior. There is mild, worsened pancreatic ductal dilatation. The spleen size is within normal limits. There is mild scarring in the left kidney. There are small renal cysts. There is no evidence of adenopathy. There are multiple fluid-filled bowel loops in a nonspecific pattern. No localized inflammatory processes identified. IMPRESSION: Increasing debris in dilated common duct of uncertain significance. Worsening calcifications in the uncinate process of the pancreas and mild worsening pancreatic ductal dilatation. If indicated, these findings could be further evaluated with ERCP. Reviewed, Interpreted and Dictated by Charles Wu III, MD Transcribed by Adelina Martinez Authenticated and [facility]
[2022-12-21 13:29] LABS: Blood Urea Nitrogen 17 mg/dl (7-17); Estimated Glomerular Filt Rate 72 ml/min (>60); GFR (African American) 87 ML/MIN (>60)
--- NOTE | 2022-12-21 13:50 | XR_ITS ---
FINAL REPORT CLINICAL HISTORY: tobbaco use, bmi 17 COMPARISON: none FINDINGS: Two views of the chest were obtained. The heart size and pulmonary vascularity are within normal limits. There is evidence of prior median sternotomy. No acute pulmonary abnormality is identified. There is no pneumothorax. The bony thorax is intact. IMPRESSION: No active cardiopulmonary disease. Reviewed, Interpreted and Dictated by Charles Wu III, MD Transcribed by Adelina Martinez Authenticated and [facility][1]
== END ==
PROVIDERS: PCP Nurse Practitioner Family; Visit Provider Nurse Practitioner Family
DX: R10.11 Right upper quadrant pain (principal); R74.8 Abnormal levels of other serum enzymes; R00.1 Bradycardia, unspecified; G93.40 Encephalopathy, unspecified; F39 Unspecified mood [affective] disorder; F12.10 Cannabis abuse, uncomplicated; I63.81 Other cerebral infarction due to occlusion or stenosis of small artery; R03.0 Elevated blood-pressure reading, without diagnosis of hypertension; R63.4 Abnormal weight loss; R41.3 Other amnesia; Z72.0 Tobacco use; Z87.898 Personal history of other specified conditions; Z95.2 Presence of prosthetic heart valve
CPT/HCPCS: 36415; 71046; 74160; 82565; 84520; Q9967

== ENCOUNTER → 2023-01-02 15:45 | Outpatient (CLI) | payer OTHER, SELFPAY | PROVIDERS: PCP Nurse Practitioner Family; Visit Provider Nurse Practitioner Family | DX: G93.40 Encephalopathy, unspecified (principal); I63.81 Other cerebral infarction due to occlusion or stenosis of small artery; R00.1 Bradycardia, unspecified; R03.0 Elevated blood-pressure reading, without diagnosis of hypertension; R41.3 Other amnesia; Z72.0 Tobacco use; Z87.898 Personal history of other specified conditions; Z95.2 Presence of prosthetic heart valve | CPT/HCPCS: 94762 ==

== ENCOUNTER → 2023-02-14 07:25 | Outpatient (CLI) | payer MEDICARE, OTHER, SELFPAY ==
--- NOTE | 2023-02-14 07:25 | NM_ITS ---
APPROVED REPORT Exam: Nuclear Stress Test Indication: pre-op..tobacco user Patient Location: Outpatient Stress Tech: Fabienne Farah [place] Tech:Hemalatha ChoiTANIA RT(R)(N) Ht: 5 ft 2 in Wt: 80 lbs Bra Size: b HR: 73 bpm BP: 123/64 mmHg BSA: 1.30 m2 TID: 1.08 BMI: 14.6 History: pre-op..tobacco user Procedure: Patient received 0.4 mg of intravenous Lexiscan, resting heart rate 73 bpm, resting blood pressure 123/64 mmHg, with Lexiscan maximum heart rate achieved was 90 bpm which is 85 % of the maximum predicted heart rate and blood pressure was 138/53 mmHg. With Lexiscan, patient denied any complaint of chest pain. Cardiac Stress and Resting SPECT Images: Cardiac Stress and Resting SPECT images were obtained using technetium 99m Myoview 32.8 mCi stress and 10.84 mCi at rest. Resting and stress imaging in both supine and prone positions demonstrate no reversible or fixed perfusion defects. Gated imaging demonstrates a normal global and regional LV systolic function. LVEF is calculated at 70%. Conclusion: Resting and stress imaging in both supine and prone positions demonstrate no reversible or fixed perfusion defects. Gated imaging demonstrates a normal global and regional LV systolic function. LVEF is calculated at 70%. Electronically signed by : Heidy Chavez, 02/17/2023 14:08:11
--- NOTE | 2023-02-14 09:37 | CA_ITS ---
APPROVED REPORT Exam: Pharmacologic Technologist: Fabienne Carter, Ht: 5 ft 2 in Wt: 92 lbs BSA: 1.37 m2 HR: 72 bpm BP: 123/64 mmHg Rhythm: NSR Medical History Medications: Pantoprazole,,,,, Temazepam,,,,, PaROXETINE,,,,, Pregabalin,,,,, Stress Test Details Test: LEXISCAN Reason for pharmacologic stress test: physical limitation. HR Resting HR: 73 bpm Max Heart Rate (APMHR): 155 bpm Max HR Achieved: 90 bpm Target HR (85% APMHR): 132 bpm % of APMHR: 58 Recovery HR: 78 bpm BP Resting BP: 123.0/64.0 mmHg Max BP: 138.0/53.0 mmHg Recovery BP: 121.0/61.0 mmHg ECG Resting ECG: NSR, rightward axis, ST depression in inferolateral leads Stress ECG: No change Arrhythmia: None Recovery ECG: No change Recovery Arrhythmia: None Clinical Exercise duration: 04:00 min Highest Stage Achieved: Stress ECG Conclusion Symptoms: Mild SOA. Headache. No CP. Arrhythmias/Ectoy: None ST-T Changes: Baseline ST-depression, with no significant changes with pharmacologic stress testing Conclusion: Non-diagnostic Lexiscan stress due to baseline abnormalities. Myoview images reported separarely. Test Summary REST . . . . . . . Resting REST 03:32 . . 73 . 123/ 64 . . Stage 1 01:00 . . 79 . . . . Stage 2 01:00 . . 89 . 99/ 50 . . Stage 3 01:00 . . 88 . 129/ 54 . . Stage 4 01:00 . . 86 . 138/ 53 . Stop exercise at 04:00 RECOVERY 01:00 . . 80 . . . . RECOVERY 02:00 . . 86 . 123/ 65 . . RECOVERY 03:00 . . 84 . 121/ 61 . . RECOVERY 03:17 . . 85 . 121/ 61 . . Electronically signed by : Heidy Chavez, 02/17/2023 14:05:50
[2023-02-14 11:49] LABS: Chloride 103 mmol/L (98-107); Potassium 3.6 mmoL/L (3.5-5.1); Sodium 139 mmol/L (136-145)
[2023-02-14 11:51] LABS: Alanine Aminotransferase 23 U/L (12-78); Alkaline Phosphatase 237 U/L (38-126); Aspartate Amino Transferase 40 U/L (14-36); Bilirubin,Total 0.3 mg/dl (0.2-1.3); Blood Urea Nitrogen 14 mg/dl (7-17); Estimated Glomerular Filt Rate 100 ml/min (>60); GFR (African American) 121 ML/MIN (>60)
[2023-02-14 11:52] LABS: Albumin Level 3.6 g/dl (3.5-5.0); Albumin/Globulin Ratio 1.3 (1.1-1.8); Anion Gap 14.6 mEq/L (5-15); Calcium 8.7 mg/dl (8.4-10.2); Carbon Dioxide 25 mmol/L (22.0-30.0); Globulin 2.7 g/dL (1.3-3.2); Glucose 87 mg/dl (74-100); Total Protein,Serum 6.3 g/dl (6.3-8.2)
[2023-02-14 12:05] LABS: Erythrocyte Sedimentation Rate 10 mm/hr (0-30)
[2023-02-14 15:57] LABS: Chol/HDL Ratio 2.9 (1-3.5); Cholesterol 144 mg/dl (140-200); HDL Cholesterol 50 mg/dl (40-60); Triglycerides 171 mg/dl (30-150); VLDL Cholesterol 34 mg/dL (0-40)
[2023-02-14 16:08] LABS: C-Reactive Protein 9.6 mg/L (0-4); Direct LDL Cholesterol 69.41 mg/dL (100-129)
[2023-02-15 10:27] LABS: Rapid Plasma Reagin Ab Titer Non Reactive (NonRea<1:1)
[2023-02-18 18:09] LABS: Vitamin B1 117.2 nmol/L (66.5-200.0)
[2023-03-20 00:23] LABS: Antinuclear Antibodies (ANA) Negative
== END ==
PROVIDERS: Nurse Practitioner Family; Physician Assistant Medical; PCP Nurse Practitioner Family; Visit Provider Nurse Practitioner
DX: R06.09 Other forms of dyspnea (principal); K21.9 Gastro-esophageal reflux disease without esophagitis; R94.31 Abnormal electrocardiogram [ECG] [EKG]; F12.10 Cannabis abuse, uncomplicated; F39 Unspecified mood [affective] disorder; G93.40 Encephalopathy, unspecified; I63.81 Other cerebral infarction due to occlusion or stenosis of small artery; R00.1 Bradycardia, unspecified; R03.0 Elevated blood-pressure reading, without diagnosis of hypertension; R41.3 Other amnesia; Z95.3 Presence of xenogenic heart valve; Z87.898 Personal history of other specified conditions; Z95.2 Presence of prosthetic heart valve; F17.200 Nicotine dependence, unspecified, uncomplicated
CPT/HCPCS: 36415; 78452; 80053; 80061; 82746; 84425; 85651; 86038; 86140; 86225; 86235; 86593; 93017; 93306; A9502; J2785

== ENCOUNTER → 2023-05-14 23:13 | Outpatient (CLI) | payer MEDICARE, SELFPAY | PROVIDERS: PCP Nurse Practitioner Family; Visit Provider Nurse Practitioner Family | DX: R30.0 Dysuria (principal); B96.4 Proteus (mirabilis) (morganii) as the cause of diseases classified elsewhere | CPT/HCPCS: 87086; 87088; 87186 ==

== ENCOUNTER → 2023-07-05 12:07 | Outpatient (CLI) | payer MEDICARE, SELFPAY ==
[2023-07-05 11:28] LABS: Basophils # 0.1 K/mm3 (0-0.2); Basophils % 0.8 % (0.1-2.0); Eosinophils # 0.2 K/mm3 (0.0-0.4); Eosinophils % 2.1 % (0.1-12.0); Hematocrit 43.7 % (37.0-47.0); Hemoglobin 14.8 g/dL (12.2-16.2); Lymphocytes # 2.7 K/mm3 (0.7-4.5); Lymphocytes % 23.6 % (10-50); Mean Corpuscular HGB Conc 33.8 g/dL (31.8-35.4); Mean Corpuscular Hemoglobin 29.9 pg (27.0-31.2); Mean Corpuscular Volume 88.6 fl (81-99); Monocytes # 0.4 K/mm3 (0.1-1.0); Monocytes % 3.4 % (1.7-9.3); Neutrophils # 7.9 K/mm3 (1.8-7.8); Neutrophils % 70.1 % (37.0-80.0); Platelet Count 255 K/mm3 (142-424); Red Blood Count 4.93 M/mm3 (4.20-5.40); Red Cell Distribution Width 15.6 % (11.5-17.5); White Blood Count 11.3 K/mm3 (4.8-10.8)
[2023-07-05 11:38] LABS: Chloride 110 mmol/L (98-107); Potassium 4.8 mmoL/L (3.5-5.1); Sodium 141 mmol/L (136-145)
[2023-07-05 11:41] LABS: Alanine Aminotransferase 17 U/L (12-78); Albumin Level 4.4 g/dl (3.5-5.0); Albumin/Globulin Ratio 1.5 (1.1-1.8); Alkaline Phosphatase 117 U/L (38-126); Anion Gap 11.8 mEq/L (5-15); Aspartate Amino Transferase 32 U/L (14-36); Bilirubin,Total 0.3 mg/dl (0.2-1.3); Blood Urea Nitrogen 18 mg/dl (7-17); Carbon Dioxide 24 mmol/L (22.0-30.0); Estimated Glomerular Filt Rate 72 ml/min (>60); GFR (African American) 87 ML/MIN (>60); Total Protein,Serum 7.4 g/dl (6.3-8.2)
[2023-07-05 11:42] LABS: Glucose 80 mg/dl (74-100)
== END ==
PROVIDERS: PCP Nurse Practitioner Family; Visit Provider Nurse Practitioner Family
DX: M54.50 Low back pain, unspecified (principal); R10.2 Pelvic and perineal pain; R10.9 Unspecified abdominal pain; R10.30 Lower abdominal pain, unspecified; G62.9 Polyneuropathy, unspecified; B96.89 Other specified bacterial agents as the cause of diseases classified elsewhere
CPT/HCPCS: 36415; 80053; 85025; 86140; 87086

== ENCOUNTER → 2023-07-23 07:49 | Outpatient (CLI) | payer MEDICARE, SELFPAY ==
--- NOTE | 2023-07-23 07:49 | CT_ITS ---
FINAL REPORT TECHNIQUE: Postcontrast axial images through the abdomen and pelvis were performed. This study was performed with techniques to keep radiation doses as low as reasonably achievable, (ALARA). Individualized dose reduction techniques using automated exposure control or adjustment of mA and/or kV according to the patient's size were employed. CLINICAL HISTORY: lower abd pain, nausea. Hx of hysterectomy, appendectomy, cholecystectomy. FINDINGS: Abdomen: The lung bases are clear. The liver is normal in size and attenuation. The patient is status post cholecystectomy. There is moderate biliary ductal dilatation with pneumobilia. There is mild pancreatic ductal dilatation. Moderate calcifications are seen in the head and uncinate process of the pancreas consistent with chronic pancreatitis. Note is made of mild left renal scarring. Several small renal cysts are noted. The spleen is unremarkable. The adrenals are normal. The aorta is normal in caliber. No free fluid or adenopathy is identified. There are multiple fluid-filled bowel loops in a nonspecific pattern, may represent an enteritis. Pelvis: The appendix is not identified. The patient is status post hysterectomy. There are postoperative changes in the bilateral proximal femurs. The urinary bladder is unremarkable. No free fluid, free air, abscess or adenopathy is identified. IMPRESSION: Moderate biliary ductal dilatation with pneumobilia. Chronic pancreatitis. Findings may represent enteritis. Reviewed, Interpreted and Dictated by Charles Wu III, MD Transcribed by Cassandra Burgos Authenticated and [facility]
== END ==
PROVIDERS: PCP Nurse Practitioner Family; Visit Provider Nurse Practitioner Family
DX: K86.9 Disease of pancreas, unspecified (principal); R10.30 Lower abdominal pain, unspecified; Z96.89 Presence of other specified functional implants
CPT/HCPCS: 74177; Q9967

== ENCOUNTER → 2023-08-07 12:23 | Outpatient (CLI) | payer MEDICARE, SELFPAY ==
[2023-08-07 12:43] LABS: Basophils % 0.3 % (0.1-2.0); Eosinophils # 0.3 K/mm3 (0.0-0.4); Eosinophils % 2.3 % (0.1-12.0); Hematocrit 45.9 % (37.0-47.0); Hemoglobin 15.2 g/dL (12.2-16.2); Lymphocytes # 2.6 K/mm3 (0.7-4.5); Lymphocytes % 19.3 % (10-50); Mean Corpuscular HGB Conc 33.1 g/dL (31.8-35.4); Mean Corpuscular Hemoglobin 29.5 pg (27.0-31.2); Mean Corpuscular Volume 89.1 fl (81-99); Mean Platelet Volume 7.6 fl (7.4-10.4); Monocytes # 0.4 K/mm3 (0.1-1.0); Neutrophils # 10.1 K/mm3 (1.8-7.8); Neutrophils % 75.1 % (37.0-80.0); Platelet Count 306 K/mm3 (142-424); Red Blood Count 5.15 M/mm3 (4.20-5.40); Red Cell Distribution Width 17.3 % (11.5-17.5); White Blood Count 13.5 K/mm3 (4.8-10.8)
[2023-08-07 13:45] LABS: Alanine Aminotransferase 64 U/L (12-78); Albumin Level 4.6 g/dl (3.5-5.0); Albumin/Globulin Ratio 1.4 (1.1-1.8); Alkaline Phosphatase 326 U/L (38-126); Amylase 204 U/L (30-110); Anion Gap 12.5 mEq/L (5-15); Aspartate Amino Transferase 100 U/L (14-36); Bilirubin,Total 0.4 mg/dl (0.2-1.3); Blood Urea Nitrogen 17 mg/dl (7-17); Calcium 9.5 mg/dl (8.4-10.2); Carbon Dioxide 17 mmol/L (22.0-30.0); Chloride 113 mmol/L (98-107); Estimated Glomerular Filt Rate 72 ml/min (>60); GFR (African American) 87 ML/MIN (>60); Globulin 3.3 g/dL (1.3-3.2); Glucose 84 mg/dl (74-100); Potassium 4.5 mmoL/L (3.5-5.1); Sodium 138 mmol/L (136-145); Total Protein,Serum 7.9 g/dl (6.3-8.2)
[2023-08-07 13:50] LABS: C-Reactive Protein 4.5 mg/L (0-4)
[2023-08-07 14:03] LABS: Troponin I < 0.01 ng/ml (0.00-0.034)
[2023-08-07 14:12] LABS: Lipase 1902 U/L (23-300)
== END ==
PROVIDERS: PCP Nurse Practitioner Family; Visit Provider Nurse Practitioner Family
DX: R10.11 Right upper quadrant pain (principal); R11.0 Nausea; K86.9 Disease of pancreas, unspecified
CPT/HCPCS: 36415; 80053; 82150; 83690; 84484; 85025; 86140

== ENCOUNTER → 2023-08-09 13:39 | Outpatient (CLI) | payer MEDICARE, SELFPAY ==
[2023-08-09 13:21] LABS: Basophils # 0.1 K/mm3 (0-0.2); Basophils % 0.7 % (0.1-2.0); Eosinophils # 0.3 K/mm3 (0.0-0.4); Eosinophils % 3.5 % (0.1-12.0); Hematocrit 44.2 % (37.0-47.0); Hemoglobin 14.6 g/dL (12.2-16.2); Lymphocytes # 2.3 K/mm3 (0.7-4.5); Lymphocytes % 27.4 % (10-50); Mean Corpuscular HGB Conc 33.1 g/dL (31.8-35.4); Mean Corpuscular Hemoglobin 29.7 pg (27.0-31.2); Mean Corpuscular Volume 89.9 fl (81-99); Mean Platelet Volume 8.7 fl (7.4-10.4); Monocytes # 0.3 K/mm3 (0.1-1.0); Monocytes % 3.8 % (1.7-9.3); Neutrophils # 5.4 K/mm3 (1.8-7.8); Neutrophils % 64.5 % (37.0-80.0); Platelet Count 298 K/mm3 (142-424); Red Blood Count 4.91 M/mm3 (4.20-5.40); Red Cell Distribution Width 17.3 % (11.5-17.5); White Blood Count 8.3 K/mm3 (4.8-10.8)
[2023-08-09 13:49] LABS: Alanine Aminotransferase 32 U/L (12-78); Albumin/Globulin Ratio 1.3 (1.1-1.8); Alkaline Phosphatase 198 U/L (38-126); Amylase 114 U/L (30-110); Anion Gap 12.3 mEq/L (5-15); Aspartate Amino Transferase 32 U/L (14-36); Bilirubin,Total 0.3 mg/dl (0.2-1.3); Blood Urea Nitrogen 15 mg/dl (7-17); Calcium 9.1 mg/dl (8.4-10.2); Carbon Dioxide 17 mmol/L (22.0-30.0); Chloride 111 mmol/L (98-107); Estimated Glomerular Filt Rate 84 ml/min (>60); GFR (African American) 102 ML/MIN (>60); Globulin 3.1 g/dL (1.3-3.2); Glucose 75 mg/dl (74-100); Potassium 4.3 mmoL/L (3.5-5.1); Sodium 136 mmol/L (136-145); Total Protein,Serum 7.1 g/dl (6.3-8.2)
[2023-08-09 14:14] LABS: Lipase 1552 U/L (23-300)
== END ==
PROVIDERS: PCP Nurse Practitioner Family; Visit Provider Nurse Practitioner Family
DX: K86.9 Disease of pancreas, unspecified (principal); R10.11 Right upper quadrant pain; R11.0 Nausea; Z96.89 Presence of other specified functional implants; K86.89 Other specified diseases of pancreas
CPT/HCPCS: 80053; 82150; 83690; 85025

== ENCOUNTER → 2023-08-16 12:48 | Outpatient (CLI) | payer MEDICARE, SELFPAY ==
[2023-08-16 14:37] LABS: Basophils # 0.1 K/mm3 (0-0.2); Basophils % 0.8 % (0.1-2.0); Eosinophils # 0.3 K/mm3 (0.0-0.4); Eosinophils % 3.6 % (0.1-12.0); Hemoglobin 14.2 g/dL (12.2-16.2); Lymphocytes # 2.7 K/mm3 (0.7-4.5); Lymphocytes % 29.9 % (10-50); Mean Corpuscular Hemoglobin 29.9 pg (27.0-31.2); Mean Corpuscular Volume 90.7 fl (81-99); Mean Platelet Volume 8.6 fl (7.4-10.4); Monocytes # 0.4 K/mm3 (0.1-1.0); Monocytes % 4.2 % (1.7-9.3); Neutrophils # 5.5 K/mm3 (1.8-7.8); Neutrophils % 61.4 % (37.0-80.0); Platelet Count 262 K/mm3 (142-424); Red Blood Count 4.74 M/mm3 (4.20-5.40); Red Cell Distribution Width 17.8 % (11.5-17.5)
[2023-08-16 15:13] LABS: Alanine Aminotransferase 14 U/L (12-78); Albumin Level 3.9 g/dl (3.5-5.0); Albumin/Globulin Ratio 1.3 (1.1-1.8); Alkaline Phosphatase 129 U/L (38-126); Amylase 62 U/L (30-110); Anion Gap 11.3 mEq/L (5-15); Aspartate Amino Transferase 21 U/L (14-36); Bilirubin,Total 0.3 mg/dl (0.2-1.3); Blood Urea Nitrogen 18 mg/dl (7-17); Calcium 8.3 mg/dl (8.4-10.2); Carbon Dioxide 15 mmol/L (22.0-30.0); Chloride 117 mmol/L (98-107); Estimated Glomerular Filt Rate 72 ml/min (>60); GFR (African American) 87 ML/MIN (>60); Globulin 2.9 g/dL (1.3-3.2); Glucose 65 mg/dl (74-100); Lipase 289 U/L (23-300); Potassium 4.3 mmoL/L (3.5-5.1); Sodium 139 mmol/L (136-145); Total Protein,Serum 6.8 g/dl (6.3-8.2)
== END ==
LOC: LAB.DROPOF 12:49
PROVIDERS: PCP Nurse Practitioner Family; Visit Provider Nurse Practitioner Family
DX: K85.90 Acute pancreatitis without necrosis or infection, unspecified (principal); R10.11 Right upper quadrant pain
CPT/HCPCS: 80053; 82150; 83690; 85025

== ENCOUNTER 2023-09-03 15:19 | Outpatient (CLI) | payer MEDICARE, SELFPAY ==
--- NOTE | 2023-09-03 15:23 | XR_ITS ---
FINAL REPORT CLINICAL HISTORY: left rib injury heard pop when hugged pain FINDINGS: 2 views of the multiple ribs were obtained. There has been median sternotomy. There is no acute displaced fracture. The visualized lungs are clear. No pneumothorax is identified. IMPRESSION: No rib fracture or pneumothorax identified. Reviewed, Interpreted and Dictated by Charles Wu III, MD Transcribed by Garcia May Authenticated and . [facility]
[2023-09-03 23:02] LABS: Basophils # 0.2 K/mm3 (0-0.2); Basophils % 1.2 % (0.1-2.0); Eosinophils # 0.2 K/mm3 (0.0-0.4); Eosinophils % 1.8 % (0.1-12.0); Hematocrit 45.2 % (37.0-47.0); Hemoglobin 14.5 g/dL (12.2-16.2); Lymphocytes # 3.3 K/mm3 (0.7-4.5); Lymphocytes % 28.7 % (10-50); Mean Corpuscular Hemoglobin 29.7 pg (27.0-31.2); Mean Corpuscular Volume 92.9 fl (81-99); Mean Platelet Volume 9.5 fl (7.4-10.4); Monocytes # 0.3 K/mm3 (0.1-1.0); Monocytes % 2.9 % (1.7-9.3); Neutrophils # 7.6 K/mm3 (1.8-7.8); Neutrophils % 65.4 % (37.0-80.0); Platelet Count 309 K/mm3 (142-424); Red Blood Count 4.86 M/mm3 (4.20-5.40); Red Cell Distribution Width 18.1 % (11.5-17.5); White Blood Count 11.6 K/mm3 (4.8-10.8)
[2023-09-03 23:11] LABS: Chloride 114 mmol/L (98-107); Potassium 4.3 mmoL/L (3.5-5.1); Sodium 140 mmol/L (136-145)
[2023-09-03 23:14] LABS: Alanine Aminotransferase 14 U/L (12-78); Albumin Level 4.2 g/dl (3.5-5.0); Albumin/Globulin Ratio 1.4 (1.1-1.8); Alkaline Phosphatase 102 U/L (38-126); Amylase 51 U/L (30-110); Anion Gap 17.3 mEq/L (5-15); Aspartate Amino Transferase 27 U/L (14-36); Bilirubin,Total 0.4 mg/dl (0.2-1.3); Blood Urea Nitrogen 16 mg/dl (7-17); Carbon Dioxide 13 mmol/L (22.0-30.0); Estimated Glomerular Filt Rate 63 ml/min (>60); GFR (African American) 76 ML/MIN (>60); Glucose 57 mg/dl (74-100); Lipase 170 U/L (23-300); Total Protein,Serum 7.2 g/dl (6.3-8.2)
== END 2023-09-03 23:59 ==
LOC: RAD 15:20 → LAB.DROPOF 22:52
PROVIDERS: PCP Nurse Practitioner Family; Visit Provider Nurse Practitioner Family
DX: R07.81 Pleurodynia (principal); K85.90 Acute pancreatitis without necrosis or infection, unspecified; R10.11 Right upper quadrant pain; R11.0 Nausea
CPT/HCPCS: 71101; 80053; 82150; 83690; 85025

== ENCOUNTER 2023-09-06 10:40 | Emergency (ER) | payer MEDICARE, SELFPAY ==
[2023-09-06] VITALS (9 sets, daily range): BP systolic 91–160; BP diastolic 52–77; PULSE 71–82; RESP 18–20; TEMP 36.7–36.8; O2SAT 97–98; BMI 19.3
--- NOTE | 2023-09-06 10:56 | XR_ITS ---
FINAL REPORT CLINICAL HISTORY: soa COMPARISON: None FINDINGS: A single portable view of the chest was obtained. The patient has undergone a prior midline sternotomy. The heart size and pulmonary vascularity are within normal limits. The mediastinum is within normal limits. No acute pulmonary abnormality is identified. The bony thorax is intact. IMPRESSION: No active cardiopulmonary disease. Reviewed, Interpreted and Dictated by Cahrles Wu III, MD Transcribed by Franci Velazco Authenticated and [facility]
--- NOTE | 2023-09-06 10:56 | CT_ITS ---
FINAL REPORT CLINICAL HISTORY: epigastric pain, previous perf s/p recon COMPARISON: 07/23/2023 FINDINGS: CT OF THE ABDOMEN AND PELVIS WITH CONTRAST Axial CT images of the abdomen and pelvis were obtained after the administration of IV contrast. Coronal and sagittal reformatted images were also obtained and reviewed. This study was performed with techniques to keep radiation doses as low as reasonably achievable (ALARA). Individualized dose reduction techniques using automated exposure control or adjustment of mA and/or kV according to the patient's size were employed. Abdomen: The lung bases are clear. The heart is normal in size. The patient has undergone a prior cholecystectomy. There is mild biliary ductal dilatation with pneumobilia present, also seen on the prior CT of July 2023. The spleen is unremarkable. No adrenal mass is present. The pancreas has multiple calcifications in the head of the pancreas and the uncinate process, favor chronic pancreatitis. There is also moderate pancreatic duct dilatation, measuring up to 8 mm in size, worse than seen on the prior CT. There is a small left renal cyst, stable since the prior exam. The aorta is normal in caliber. There is no free fluid or adenopathy. No mass or abnormal fluid collection is seen. Moderate vascular calcifications are noted. Pelvis: The appendix is not well-visualized. The urinary bladder is unremarkable. No inflammatory process is seen. There is no evidence of mass or adenopathy. There is no evidence of bowel obstruction. The uterus has been surgically resected. There are postoperative changes present in the femurs bilaterally. IMPRESSION: Mild biliary ductal dilatation with pneumobilia, also noted on the prior CT of July 2023. Moderate pancreatic duct dilatation, more prominent than noted on the prior exam, with multiple calcifications into the head of the pancreas and the uncinate process, favor chronic pancreatitis. Reviewed, Interpreted and Dictated by Charles Wu III, MD Transcribed by Franci Velazco Authenticated and [facility]
[2023-09-06] MEDS: KETOROLAC 30MG/ML VIAL 30 MG IV (11:05)
[2023-09-06] MEDS: ONDANSETRON 4MG/2ML VIAL 4 MG IV (11:05)
[2023-09-06] MEDS: MORPHINE 4MG/ML SYRINGE 4 MG IV ×3 (11:05→19:45)
[2023-09-06] MEDS: ACETAMINOPHEN 1,000MG/100ML VIAL 1000 MG IV (11:05)
[2023-09-06] MEDS: LACTATED RINGERS 1000ML 1,000 ML 999 ML IV (11:05)
--- NOTE | 2023-09-06 11:06 | HMH.EDGENADL ---
Discharge Plan Disposition Patient Disposition: Xfer Short-Term Hosp Chief Complaint: Abdominal Pain Prescriptions Prescriptions: No Action pantoprazole 40 mg tablet,delayed release (DR/EC) 40 mg PO BID 30 Days Qty: 60 6RF Trelegy Ellipta 100-62.5-25 mcg blister with device 1 inh inhalation DAILY 30 Days Qty: 60 6RF lidocaine [Aspercreme (lidocaine)] 4 % adhesive patch,medicated 1 patch topical DAILY PRN Creon 24,000-76,000 -120,000 unit capsule,delayed release(DR/EC) 1 cap PO TID 30 Days Qty: 90 5RF hydrocodone-acetaminophen 7.5-325 mg tablet 1 tab PO Q6H PRN (Reason: pain) Qty: 20 0RF ondansetron HCl 4 mg tablet 4 mg PO Q8H PRN (Reason: nausea and vomiting) Qty: 30 0RF nystatin 100,000 unit/mL suspension 500,000 unit PO Q6H 14 Days Qty: 280 0RF Rx Instructions: swish and spit pregabalin 150 mg capsule 150 mg PO Q8H 30 Days Qty: 90 2RF paroxetine HCl 40 mg tablet 40 mg PO DAILY 30 Days Qty: 30 6RF temazepam 15 mg capsule 15 mg PO HS 30 Days Qty: 30 2RF Referrals Follow up/Referrals: Betty Antonio APRN [Primary Care Provider] - See instructions Clinical Impressions Clinical Impression: Acute pancreatitis, Common bile duct dilation, Dilated pancreatic duct Discharge ED Provider: Vj Watson General Adult HPI General Chief complaint: Abdominal Pain Stated complaint: sent fr [facility] poss pancretitis Time Seen by Provider: 09/06/23 10:45 Mode of Arrival: Ambulatory Source of Information: Patient Limitations: No Limitations Description of Symptoms (Recalled from ER Triage Doc. by RN): Patient with history of pancreatitis presents today with complaint of right upper abdomen pain that started this morning. Was seen at the doctor's office this morning and was sent here for evaluation. History of Present Illness HPI narrative: Patient is a 63-year-old female with past medical history of chronic pancreatitis, multiple previous abdominal surgeries who presents emergency department for evaluation of epigastric pain. Onset was acute, over the last few days. Epigastric. Patient states that this pain is similar to her previous episodes. No vomiting, there is associated nausea. Patient has chronic diarrhea that is nonbloody and not worse than her baseline. Due to persistent symptoms she presents here from clinic for continued evaluation. Patient has a past medical history of laparoscopic cholecystectomy multiple years ago, previous hysterectomy, previous appendectomy. Patient recently had GI biliary stenting in March that was placed for obstruction and was subsequently removed. Related Data Home Medications Medication Instructions Recorded Confirmed lidocaine 4 % topical patch 1 patch topical DAILY PRN 08/16/23 09/06/23 (Aspercreme (lidocaine)) Previous Rx's Medication Instructions Recorded fluticasone fur. 100 mcg-umeclid 1 inh inhalation DAILY 30 days #60 05/14/23 62.5 mcg-vilant 25 mcg ea inhalat.powder (Trelegy Ellipta) pantoprazole 40 mg tablet,delayed 40 mg PO BID STOMACH 30 days #60 05/14/23 release tabs pregabalin 150 mg capsule 150 mg PO Q8H 30 days #90 caps 05/24/23 paroxetine HCl 40 mg tablet 40 mg PO DAILY Depression 30 days 06/10/23 #30 tabs cintfy-sptptjni-gphshrq 1 cap PO TID 30 days #90 caps 08/07/23 24,000-76,000-120,000 unit capsule,delayed rel (Creon) hydrocodone 7.5 mg-acetaminophen 1 tab PO Q6H PRN pain #20 tabs 09/03/23 325 mg tablet nystatin 100,000 unit/mL oral 500,000 unit (5 mL) PO Q6H 14 days 09/03/23 suspension #280 mL ondansetron HCl 4 mg tablet 4 mg PO Q8H PRN nausea and 09/03/23 vomiting #30 tabs temazepam 15 mg capsule 15 mg PO HS Insomnia 30 days #30 09/03/23 caps Allergies Allergy/AdvReac Type Severity Reaction Status Date / Time levofloxacin [From LEVAQUIN] Allergy Unknown SEIZURES Verified 09/06/23 10:04 [facility] Disclaimer: The information contained in this section may have been updated after the patient was seen, as this information can be updated by other users. Medical History Bradycardia Dyspnea Gastroesophageal reflux disease Hip fracture Surgical History History of aortic valve replacement History of appendectomy History of hysterectomy History of laparoscopic cholecystectomy History of repair of both hip joints History of tonsillectomy Family History Other Diabetes Hypertension Stroke Social History Smoking Status: Current every day smoker tobacco type: cigarettes packs per day: 1 second hand exposure: Yes alcohol intake: never substance use type: other current occupational status: unemployed Travel in the last 8 weeks: None household members: family and children housing: house current occupational exposures/hazards: No caffeine: Yes ROS Obtained: Yes Systems reviewed as appropriate & no additional complaints except as documented Physical Exam General General appearance: alert and in no apparent distress Head Head exam: atraumatic and normocephalic Eye Eye exam: Present PERRL and EOMI ENT ENT exam: Present mucous membranes moist Neck Neck exam: Present normal inspection Chest Chest inspection: Present normal inspection and symmetric chest wall rise Respiratory Respiratory exam: Present normal lung sounds bilaterally; Absent respiratory distress Cardiovascular Cardiovascular exam: Present regular rate and normal rhythm Abdominal Exam Abdominal exam: Present soft and tenderness (Epigastric) Extremities Exam Extremities exam: Present normal inspection Neurological Exam Neurological exam: Present alert Psychiatric Psychiatric exam: Present normal affect Skin Skin exam: Present warm and dry Medical Decision Making [place] Inquiry Pt receiving controlled substance: No Vital Signs: 09/06/23 10:41 09/06/23 12:26 Temperature 98.0 F Temperature Source Oral Pulse Rate 74 Pulse Rate [Radial] 81 Respiratory Rate 18 Blood Pressure 96/52 L Blood Pressure [Right Arm] 160/77 H Blood Pressure Mean [Right Arm] 104 Blood Pressure Source [Right Arm] Automatic Cuff Blood Pressure Position [Right Arm] Supine 02 Sat by Pulse Oximetry 97 98 Oxygen Delivery Method Room Air Lab Data Lab Results 09/06/23 10:53: WBC 14.5 H, RBC 4.99, Hgb 15.0, Hct 46.4, MCV 93.0, MCH 30.1, MCHC 32.3, RDW 18.2 H, Plt Count 260, MPV 8.1, Neut % (Auto) 83.9 H, Lymph % (Auto) 11.7, Sanders % (Auto) 2.6, Eos % (Auto) 1.1, Baso % (Auto) 0.6, Neut # (Auto) 12.1 H, Lymph # (Auto) 1.7, Sanders # (Auto) 0.4, Eos # (Auto) 0.2, Baso # (Auto) 0.1, Sodium 140, Potassium 3.6, Chloride 115 H, Carbon Dioxide 14 L, Anion Gap 14.6, BUN 18 H, Creatinine 0.80, Estimated Creat Clear 43, Estimated GFR 72, Est GFR ( Amer) 87, Glucose 80, Calcium 9.0, Total Bilirubin 0.6, AST 29, ALT 15, Alkaline Phosphatase 108, Troponin I < 0.01, Total Protein 7.9, Albumin 4.2, Globulin 3.7 H, Albumin/Globulin Ratio 1.1, Lipase 2907 H 09/06/23 12:20: Lactate 0.8 09/06/23 10:53 09/06/23 10:53 Orders (Tests/Meds): ED MEDICATIONS Discontinued Medications Generic Name Dose Route Start Last Admin Trade Name Freq PRN Reason Stop Dose Admin Acetaminophen 1,000 mg 09/06/23 10:58 09/06/23 11:05 Acetaminophen 1,000mg/100ml Vial IV 09/06/23 10:59 1,000 mg ONCE ONE Administration Lactated Ringer's 1,000 mls @ 999 mls/hr 09/06/23 10:56 09/06/23 11:05 Lactated Ringer's 1000 Ml Bag IV 09/06/23 11:56 999 mls/hr .Q1H1M ONE Administration Piperacillin Sod/Tazobactam 50 mls @ 100 mls/hr 09/06/23 12:30 Sod 3.375 gm/ Sodium Chloride IV 09/06/23 12:59 ONCE ONE Iopamidol 75 ml 09/06/23 11:52 09/06/23 11:53 Iopamidol-370 (76%);100ml Bottle IV 09/06/23 11:53 75 ml ONCE ONE Administration Ketorolac Tromethamine 30 mg 09/06/23 10:58 09/06/23 11:05 Ketorolac 30mg/Ml Vial IV 09/06/23 10:59 30 mg ONCE ONE Administration Morphine Sulfate 4 mg 09/06/23 10:58 09/06/23 11:05 Morphine 4mg/Ml Syringe IV 09/06/23 10:59 4 mg ONCE ONE Administration Ondansetron HCl 4 mg 09/06/23 10:56 09/06/23 11:05 Ondansetron 4mg/2ml Vial IV 09/06/23 10:57 4 mg ONCE ONE Administration Sodium Chloride 10 ml 09/06/23 11:52 09/06/23 11:52 Sodium Chloride 0.9% 10ml Syr (Rad Only) IV 09/06/23 11:53 10 ml ONCE ONE Administration ORDERS Category Date Time Status CT abdomen pelvis w con Stat Cat Scan 09/06/23 10:56 Completed CXR --portable [XR chest portable] Stat Exams 09/06/23 10:56 Completed CBC w/Auto Diff [Complete Blood Count Auto Diff] Stat Lab 09/06/23 10:53 Completed CMP [Comprehensive Metabolic Panel] Stat Lab 09/06/23 10:53 Completed Lactic Acid Stat Lab 09/06/23 12:20 Completed Lipase Stat Lab 09/06/23 10:53 Completed Trop I [Troponin I] Stat Lab 09/06/23 10:53 Completed Troponin I Q3H Lab 09/06/23 14:00 Ordered Troponin I Q3H Lab 09/06/23 17:00 Ordered UA [Urinalysis and Microscopic] Stat Lab 09/06/23 10:56 Ordered Blood Culture Stat Micro 09/06/23 12:24 Received ECG Data Tracing #1: Independently interpreted by me, rate is 76, rhythm is regular, axis is normal, no ST elevation in anatomical contiguous leads, QTc 404. Medical Decision Narrative: In summary patient is a 63-year-old female with past medical history described above presents emergency department for evaluation of epigastric pain in the setting of chronic pancreatitis. Patient is hemodynamically stable nontoxic-appearing upon arrival, afebrile. Differential diagnosis includes pancreatitis, abdominal mass, atypical ACS, among others. Workup be conducted with hematologic labs, urinalysis, CT of the abdomen pelvis IV contrast. Initial inventions include crystalloid bolus, Zofran, IV Tylenol, Toradol. Workup reviewed by me, hematologic labs remarkable for white blood cell count of 14.5, no critical anemia or electrolyte abnormalities, no GEORGE. Initial troponin undetectably low. Significantly elevated lipase of 2907. CT imaging shows mild biliary ductal dilatation with pneumobilia, moderate pancreatic duct dilatation. Given these findings single dose Zosyn will be administered. Pneumobilia may be within normal limits given her recent stenting however patient would benefit from GI evaluation with regards to ductal dilatation and pancreatitis. The case was discussed [facility] regarding management they graciously accepted patient for transfer for continued evaluation at this time. Critical Care Critical Care Time Critical Care Time: No
[2023-09-06 11:09] LABS: Chloride 115 mmol/L (98-107); Potassium 3.6 mmoL/L (3.5-5.1); Sodium 140 mmol/L (136-145)
[2023-09-06 11:12] LABS: Alanine Aminotransferase 15 U/L (12-78); Albumin Level 4.2 g/dl (3.5-5.0); Albumin/Globulin Ratio 1.1 (1.1-1.8); Alkaline Phosphatase 108 U/L (38-126); Anion Gap 14.6 mEq/L (5-15); Aspartate Amino Transferase 29 U/L (14-36); Basophils # 0.1 K/mm3 (0-0.2); Basophils % 0.6 % (0.1-2.0); Bilirubin,Total 0.6 mg/dl (0.2-1.3); Blood Urea Nitrogen 18 mg/dl (7-17); Carbon Dioxide 14 mmol/L (22.0-30.0); Creatinine Clearance Estimated 43 mL/min (50-200); Eosinophils # 0.2 K/mm3 (0.0-0.4); Eosinophils % 1.1 % (0.1-12.0); Estimated Glomerular Filt Rate 72 ml/min (>60); GFR (African American) 87 ML/MIN (>60); Globulin 3.7 g/dL (1.3-3.2); Glucose 80 mg/dl (74-100); Hematocrit 46.4 % (37.0-47.0); Lymphocytes # 1.7 K/mm3 (0.7-4.5); Lymphocytes % 11.7 % (10-50); Mean Corpuscular HGB Conc 32.3 g/dL (31.8-35.4); Mean Corpuscular Hemoglobin 30.1 pg (27.0-31.2); Mean Platelet Volume 8.1 fl (7.4-10.4); Monocytes # 0.4 K/mm3 (0.1-1.0); Monocytes % 2.6 % (1.7-9.3); Neutrophils # 12.1 K/mm3 (1.8-7.8); Neutrophils % 83.9 % (37.0-80.0); Platelet Count 260 K/mm3 (142-424); Red Blood Count 4.99 M/mm3 (4.20-5.40); Red Cell Distribution Width 18.2 % (11.5-17.5); Total Protein,Serum 7.9 g/dl (6.3-8.2); White Blood Count 14.5 K/mm3 (4.8-10.8)
[2023-09-06 11:24] LABS: Lipase 2907 U/L (23-300); Troponin I < 0.01 ng/ml (0.00-0.034)
[2023-09-06] MEDS: SODIUM CHLORIDE 0.9% 10ML SYR (RAD ONLY) 10 ML IV (11:52)
[2023-09-06] MEDS: IOPAMIDOL-370 (76%);100ML BOTTLE 75 ML IV (11:53)
[2023-09-06 12:47] LABS: Lactic Acid 0.8 mmol/L (0.7-2.1)
[2023-09-06] MEDS: PIPERACILLIN/TAZO 3.375 GM in 0.9 % SODIUM CHLORIDE 50 ML IV (14:29)
--- NOTE | 2023-09-06 16:57 | HMH.EDGENADL ---
Discharge Plan Disposition Patient Disposition: Xfer Short-Term Hosp Prescriptions Prescriptions: No Action pantoprazole 40 mg tablet,delayed release (DR/EC) 40 mg PO BID 30 Days Qty: 60 6RF Trelegy Ellipta 100-62.5-25 mcg blister with device 1 inh inhalation DAILY 30 Days Qty: 60 6RF lidocaine [Aspercreme (lidocaine)] 4 % adhesive patch,medicated 1 patch topical DAILY PRN Creon 24,000-76,000 -120,000 unit capsule,delayed release(DR/EC) 1 cap PO TID 30 Days Qty: 90 5RF hydrocodone-acetaminophen 7.5-325 mg tablet 1 tab PO Q6H PRN (Reason: pain) Qty: 20 0RF ondansetron HCl 4 mg tablet 4 mg PO Q8H PRN (Reason: nausea and vomiting) Qty: 30 0RF nystatin 100,000 unit/mL suspension 500,000 unit PO Q6H 14 Days Qty: 280 0RF Rx Instructions: swish and spit pregabalin 150 mg capsule 150 mg PO Q8H 30 Days Qty: 90 2RF paroxetine HCl 40 mg tablet 40 mg PO DAILY 30 Days Qty: 30 6RF temazepam 15 mg capsule 15 mg PO HS 30 Days Qty: 30 2RF Referrals Follow up/Referrals: Betty Antonio APRN [Primary Care Provider] - See instructions Clinical Impressions Clinical Impression: Acute pancreatitis, Common bile duct dilation, Dilated pancreatic duct Stand Alone Forms Stand Alone Forms: Transfer Record - ED Discharge ED Provider: Lee Maxwell Adult [facility] General Chief complaint: Abdominal Pain Stated complaint: sent fr [facility] office poss pancretitis Time Seen by Provider: 09/06/23 10:45 Mode of Arrival: Ambulatory Source of Information: Patient Limitations: No Limitations Description of Symptoms (Recalled from ER Triage Doc. by RN): Patient with history of pancreatitis presents today with complaint of right upper abdomen pain that started this morning. Was seen at the doctor's office this morning and was sent here for evaluation. Related Data Home Medications Medication Instructions Recorded Confirmed lidocaine 4 % topical patch 1 patch topical DAILY PRN 08/16/23 09/06/23 (Aspercreme (lidocaine)) Previous Rx's Medication Instructions Recorded fluticasone fur. 100 mcg-umeclid 1 inh inhalation DAILY 30 days #60 05/14/23 62.5 mcg-vilant 25 mcg ea inhalat.powder (Trelegy Ellipta) pantoprazole 40 mg tablet,delayed 40 mg PO BID STOMACH 30 days #60 05/14/23 release tabs pregabalin 150 mg capsule 150 mg PO Q8H 30 days #90 caps 05/24/23 paroxetine HCl 40 mg tablet 40 mg PO DAILY Depression 30 days 06/10/23 #30 tabs [id number]-[id number]-gtwetkv 1 cap PO TID 30 days #90 caps 08/07/23 24,000-76,000-120,000 unit capsule,delayed rel (Creon) hydrocodone 7.5 mg-acetaminophen 1 tab PO Q6H PRN pain #20 tabs 09/03/23 325 mg tablet nystatin 100,000 unit/mL oral 500,000 unit (5 mL) PO Q6H 14 days 09/03/23 suspension #280 mL ondansetron HCl 4 mg tablet 4 mg PO Q8H PRN nausea and 09/03/23 vomiting #30 tabs temazepam 15 mg capsule 15 mg PO HS Insomnia 30 days #30 09/03/23 caps Allergies Allergy/AdvReac Type Severity Reaction Status Date / Time levofloxacin [From LEVAQUIN] Allergy Unknown SEIZURES Verified 09/06/23 10:04 [facility] Disclaimer: The information contained in this section may have been updated after the patient was seen, as this information can be updated by other users. Medical History Bradycardia Dyspnea Gastroesophageal reflux disease Hip fracture Surgical History History of aortic valve replacement History of appendectomy History of hysterectomy History of laparoscopic cholecystectomy History of repair of both hip joints History of tonsillectomy Family History Other Diabetes Hypertension Stroke Social History Smoking Status: Current every day smoker tobacco type: cigarettes packs per day: 1 second hand exposure: Yes alcohol intake: never substance use type: other current occupational status: unemployed Travel in the last 8 weeks: None household members: family and children housing: house current occupational exposures/hazards: No caffeine: Yes Physical Exam General General appearance: alert and in no apparent distress Medical Decision Making Vital Signs: 09/06/23 10:41 09/06/23 12:26 09/06/23 17:04 Temperature 98.0 F Temperature Source Oral Pulse Rate 74 78 Pulse Rate [Radial] 81 Respiratory Rate 18 20 Blood Pressure 96/52 L 108/62 L Blood Pressure [Right Arm] 160/77 H Blood Pressure Mean 75 Blood Pressure Mean [Right Arm] 104 Blood Pressure Source Blood Pressure Source [Right Arm] Automatic Cuff Blood Pressure Position Blood Pressure Position [Right Arm] Supine 02 Sat by Pulse Oximetry 97 98 98 Oxygen Delivery Method Room Air 09/06/23 17:30 09/06/23 19:01 09/06/23 19:47 Temperature Temperature Source Pulse Rate 71 75 82 Pulse Rate [Radial] Respiratory Rate 20 Blood Pressure 121/61 105/76 L 116/62 Blood Pressure [Right Arm] Blood Pressure Mean 85 Blood Pressure Mean [Right Arm] Blood Pressure Source Blood Pressure Source [Right Arm] Blood Pressure Position Blood Pressure Position [Right Arm] 02 Sat by Pulse Oximetry 97 98 97 Oxygen Delivery Method 09/06/23 20:00 09/06/23 20:05 09/06/23 20:50 Temperature 98.2 F Temperature Source Oral Pulse Rate 72 76 76 Pulse Rate [Radial] Respiratory Rate 18 Blood Pressure 91/55 L 99/58 L 99/58 L Blood Pressure [Right Arm] Blood Pressure Mean 69 Blood Pressure Mean [Right Arm] Blood Pressure Source Automatic Cuff Blood Pressure Source [Right Arm] Blood Pressure Position Sitting Blood Pressure Position [Right Arm] 02 Sat by Pulse Oximetry 98 98 Oxygen Delivery Method Room Air Lab Data Lab Results 09/06/23 10:53: WBC 14.5 H, RBC 4.99, Hgb 15.0, Hct 46.4, MCV 93.0, MCH 30.1, MCHC 32.3, RDW 18.2 H, Plt Count 260, MPV 8.1, Neut % (Auto) 83.9 H, Lymph % (Auto) 11.7, Mercer % (Auto) 2.6, Eos % (Auto) 1.1, Baso % (Auto) 0.6, Neut # (Auto) 12.1 H, Lymph # (Auto) 1.7, Mercer # (Auto) 0.4, Eos # (Auto) 0.2, Baso # (Auto) 0.1, Sodium 140, Potassium 3.6, Chloride 115 H, Carbon Dioxide 14 L, Anion Gap 14.6, BUN 18 H, Creatinine 0.80, Estimated Creat Clear 43, Estimated GFR 72, Est GFR ( Amer) 87, Glucose 80, Calcium 9.0, Total Bilirubin 0.6, AST 29, ALT 15, Alkaline Phosphatase 108, Troponin I < 0.01, Total Protein 7.9, Albumin 4.2, Globulin 3.7 H, Albumin/Globulin Ratio 1.1, Lipase 2907 H 09/06/23 12:20: Lactate 0.8 09/06/23 10:53 09/06/23 10:53 Orders (Tests/Meds): ED MEDICATIONS Discontinued Medications Generic Name Dose Route Start Last Admin Trade Name Prateekq PRN Reason Stop Dose Admin Acetaminophen 1,000 mg 09/06/23 10:58 09/06/23 11:05 Acetaminophen 1,000mg/100ml Vial IV 09/06/23 10:59 1,000 mg ONCE ONE Administration Lactated Ringer's 1,000 mls @ 999 mls/hr 09/06/23 10:56 09/06/23 11:05 Lactated Ringer's 1000 Ml Bag IV 09/06/23 11:56 999 mls/hr .Q1H1M ONE Administration Piperacillin Sod/Tazobactam 50 mls @ 100 mls/hr 09/06/23 12:30 09/06/23 14:29 Sod 3.375 gm/ Sodium Chloride IV 09/06/23 12:59 100 mls/hr ONCE ONE Administration Iopamidol 75 ml 09/06/23 11:52 09/06/23 11:53 Iopamidol-370 (76%);100ml Bottle IV 09/06/23 11:53 75 ml ONCE ONE Administration Ketorolac Tromethamine 30 mg 09/06/23 10:58 09/06/23 11:05 Ketorolac 30mg/Ml Vial IV 09/06/23 10:59 30 mg ONCE ONE Administration Morphine Sulfate 4 mg 09/06/23 10:58 09/06/23 11:05 Morphine 4mg/Ml Syringe IV 09/06/23 10:59 4 mg ONCE ONE Administration Morphine Sulfate 4 mg 09/06/23 16:57 09/06/23 17:04 Morphine 4mg/Ml Syringe IV 09/06/23 16:58 4 mg ONCE ONE Administration Morphine Sulfate 4 mg 09/06/23 19:40 09/06/23 19:45 Morphine 4mg/Ml Syringe IV 09/06/23 19:41 4 mg ONCE ONE Administration Ondansetron HCl 4 mg 09/06/23 10:56 09/06/23 11:05 Ondansetron 4mg/2ml Vial IV 09/06/23 10:57 4 mg ONCE ONE Administration Sodium Chloride 10 ml 09/06/23 11:52 09/06/23 11:52 Sodium Chloride 0.9% 10ml Syr (Rad Only) IV 09/06/23 11:53 10 ml ONCE ONE Administration ORDERS Category Date Time Status CT abdomen pelvis w con Stat Cat Scan 09/06/23 10:56 Completed CXR --portable [XR chest portable] Stat Exams 09/06/23 10:56 Completed CBC w/Auto Diff [Complete Blood Count Auto Diff] Stat Lab 09/06/23 10:53 Completed CMP [Comprehensive Metabolic Panel] Stat Lab 09/06/23 10:53 Completed Lactic Acid Stat Lab 09/06/23 12:20 Completed Lipase Stat Lab 09/06/23 10:53 Completed Trop I [Troponin I] Stat Lab 09/06/23 10:53 Completed Blood Culture Stat Micro 09/06/23 12:24 Received
--- NOTE | 2023-09-09 11:01 | PC.NURSE ---
0946 POSITIVE BLOOD CULTURE RESULT RECEIVED FROM [facility] IN LAB, PT NAME AND R/V. 1101 PT WAS TRANSFERRED TO [facility] ED ON 09/06/22. REPORT FAXED TO 4TH FLOOR ICU WITH CONFIRMATION AT THIS TIME
== END 2023-09-06 20:51 | disposition short-term general hospital (02) ==
PROVIDERS: Emergency Medicine; Emergency Provider Emergency Medicine; PCP Nurse Practitioner Family
DX: K85.90 Acute pancreatitis without necrosis or infection, unspecified (principal); K83.8 Other specified diseases of biliary tract; K86.89 Other specified diseases of pancreas; R10.13 Epigastric pain; R11.0 Nausea; F17.210 Nicotine dependence, cigarettes, uncomplicated
CPT/HCPCS: 36415; 71045; 74177; 80053; 83605; 83690; 84484; 85025; 87040; 96361; 96365; 96375; 99285; J0131; J2405; J2543; Q9967

== ENCOUNTER 2023-09-17 14:19 | Outpatient (CLI) | payer MEDICARE, SELFPAY ==
[2023-09-17 15:44] LABS: Amphetamine/Metha Screen,Urine Negative ng/ml (<1000)
[2023-09-17 15:45] LABS: Barbiturates Screen,Urine Negative ng/ml (<200)
[2023-09-17 15:46] LABS: Benzodiazepines Screen,Urine Negative ng/ml (<200)
[2023-09-17 15:47] LABS: Cannabinoid Screen,Urine Positive ng/ml (<50)
[2023-09-17 15:48] LABS: Cocaine Screen,Urine Negative ng/ml (<300); Methadone Screen,Urine Negative ng/ml (<300)
[2023-09-17 15:49] LABS: Opiate Screen,Urine Positive ng/ml (<300)
[2023-09-17 15:59] LABS: Phencyclidine Screen,Urine Negative ng/ml (<25)
== END 2023-09-17 23:59 ==
LOC: LAB.DROPOF 14:20
PROVIDERS: PCP Nurse Practitioner Family; Visit Provider Nurse Practitioner Family
DX: Z79.899 Other long term (current) drug therapy (principal)
CPT/HCPCS: 80307

== ENCOUNTER 2023-10-15 12:16 | Outpatient (CLI) | payer MEDICARE, SELFPAY ==
--- NOTE | 2023-10-15 12:21 | XR_ITS ---
FINAL REPORT CLINICAL HISTORY: abd pain COMPARISON: 04/10/2021 FINDINGS: TWO-VIEW ABDOMEN There is a nonspecific, nonobstructive bowel gas pattern. No bowel dilation is identified. No abnormal calcification is seen. There is no free air. There are postoperative changes in the right upper quadrant. Vascular calcification is identified. Postoperative changes are seen in the bilateral proximal femurs. IMPRESSION: No acute process. Reviewed, Interpreted and Dictated by Charles Wu III, MD Transcribed by Cassandra Bugros Authenticated and [facility]
[2023-10-15 13:22] LABS: Basophils # 0.1 K/mm3 (0-0.2); Basophils % 0.3 % (0.1-2.0); Eosinophils % 0.1 % (0.1-12.0); Hematocrit 42.1 % (37.0-47.0); Hemoglobin 13.7 g/dL (12.2-16.2); Lymphocytes # 1.7 K/mm3 (0.7-4.5); Lymphocytes % 4.5 % (10-50); Mean Corpuscular HGB Conc 32.5 g/dL (31.8-35.4); Mean Corpuscular Hemoglobin 29.9 pg (27.0-31.2); Mean Corpuscular Volume 91.9 fl (81-99); Mean Platelet Volume 8.6 fl (7.4-10.4); Monocytes # 0.7 K/mm3 (0.1-1.0); Monocytes % 1.9 % (1.7-9.3); Neutrophils # 36.7 K/mm3 (1.8-7.8); Neutrophils % 93.4 % (37.0-80.0); Platelet Count 585 K/mm3 (142-424); Red Blood Count 4.58 M/mm3 (4.20-5.40); Red Cell Distribution Width 17.9 % (11.5-17.5); White Blood Count 39.3 K/mm3 (4.8-10.8)
[2023-10-15 14:00] LABS: Alanine Aminotransferase 12 U/L (12-78); Albumin Level 2.9 g/dl (3.5-5.0); Alkaline Phosphatase 230 U/L (38-126); Amylase 45 U/L (30-110); Anion Gap 20.1 mEq/L (5-15); Aspartate Amino Transferase 25 U/L (14-36); Bilirubin,Total 0.5 mg/dl (0.2-1.3); Blood Urea Nitrogen 31 mg/dl (7-17); Calcium 9.4 mg/dl (8.4-10.2); Carbon Dioxide 13 mmol/L (22.0-30.0); Chloride 103 mmol/L (98-107); Estimated Glomerular Filt Rate 45 ml/min (>60); GFR (African American) 55 ML/MIN (>60); Globulin 2.9 g/dL (1.3-3.2); Glucose 51 mg/dl (74-100); Lipase 337 U/L (23-300); Potassium 4.1 mmoL/L (3.5-5.1); Sodium 132 mmol/L (136-145); Total Protein,Serum 5.8 g/dl (6.3-8.2)
[2023-10-15 14:10] LABS: MANUAL DIFFERENTIAL MANUAL DIFFERENTIAL (MANUAL DIFF)
[2023-10-15 15:19] LABS: Lymphocytes % 6 % (10-50); Monocytes % 3 % (2-9); Neutrophils % 91 % (42-76); Total Cells Counted 100
[2023-10-15 15:20] LABS: Anisocytosis 1+; Platelet Estimate Normal
[2023-10-15 15:21] LABS: Hypochromasia 1+
== END 2023-10-15 23:59 ==
LOC: RAD 12:17
PROVIDERS: PCP Nurse Practitioner Family; Visit Provider Nurse Practitioner Family
DX: R10.30 Lower abdominal pain, unspecified (principal); R11.0 Nausea; R19.7 Diarrhea, unspecified; R10.11 Right upper quadrant pain; K86.89 Other specified diseases of pancreas
CPT/HCPCS: 74019; 80053; 82150; 83690; 85007; 85025

== ENCOUNTER 2023-10-15 15:09 | Inpatient (IN) | payer MEDICARE, SELFPAY ==
[2023-10-15] VITALS (9 sets, daily range): BP systolic 112–166; BP diastolic 66–96; PULSE 81–107; RESP 16–20; TEMP 36.4–37.2; O2SAT 97–100; BMI 17.5
--- NOTE | 2023-10-15 15:40 | CT_ITS ---
PROCEDURE INFORMATION: Exam: CT Abdomen And Pelvis With Contrast Exam date and time: 10/15/2023 4:55 PM Age: 63 years old Clinical indication: Abdominal pain; Additional info: Lower abd pain, chronic diarrhea TECHNIQUE: Imaging protocol: Computed tomography of the abdomen and pelvis with contrast. Radiation optimization: All CT scans at this facility use at least one of these dose optimization techniques: automated exposure control; mA and/or kV adjustment per patient size (includes targeted exams where dose is matched to clinical indication); or iterative reconstruction. Contrast material: ISOVUE; Contrast volume: 75 ml; Contrast route: IV; COMPARISON: CT ABDOMEN PELVIS W CON 09/06/2023 11:40 AM FINDINGS: Lungs: The visualized lung bases are clear. Heart: The visualized portions of the heart are unremarkable. Liver: There is diffuse decrease in hepatic/liver parenchymal density consistent with fatty infiltration. Pneumobilia is present, predominantly in the left hepatic lobe. Gallbladder and bile ducts: There has been a cholecystectomy. There is stable common bile duct dilation. The extrahepatic common bile duct measures 18 mm and contains an air-fluid level. Surgical clips are present in the sonya hepatis suggesting cholecystectomy. There is somewhat abrupt change in caliber from dilated mid extrahepatic common bile duct to decompressed distal common bile duct in the region of the pancreatic head of uncertain clinical significance. Cannot exclude biliary stricture in the appropriate clinical setting. Pancreas: There are punctate pancreatic parenchymal calcifications in the proximal pancreas. There is mild diffuse pancreatic ductal dilatation, as before. It is difficult to exclude that some the pancreatic calcifications in the proximal pancreatic head are not intraductal. Correlate clinically. No peripancreatic fat stranding or fluid collections. Spleen: No splenomegaly. Adrenal glands: The adrenal glands are normal. Kidneys and ureters: There are scattered areas of renal cortical scarring bilaterally, greater on the left.There are a few tiny bilateral renal hypodensities which are too small to accurately characterize. Statistically, these may be cysts. No follow-up imaging required unless clinical parameters dictate otherwise. Stomach and bowel: Apparent gastric mural thickening could be on the basis of incomplete distension but cannot exclude gastritis or other inflammatory or infiltrative process. Correlate clinically. The duodenum is unremarkable. There is a severe aguayo-colonic wall thickening suggesting colitis. Other inflammatory/infiltrative/neoplastic/ischemic processes are also included in the differential. Lack of gastrointestinal contrast limits evaluation of bowel. Unopacified loops of small bowel within range of normal. Appendix: No evidence of appendicitis. Intraperitoneal space: No evidence of intraperitoneal free air. There is a small amount of free fluid in the abdomen, particularly adjacent to the sigmoid colon. Some of this fluid shows mild peripheral enhancement indicating mild complexity. Vasculature: The aorta and iliac arteries demonstrate moderate atherosclerotic calcification. Lymph nodes: There is no evidence of pathologic adenopathy. Urinary bladder: The urinary bladder appears overall within range of normal. Reproductive: The uterus is either atrophic or absent. No adnexal cysts or masses are identified. Bones/joints: There are mild degenerative changes of the hip joints. There are mild degenerative changes of the sacroiliac joints. There is a mild convex left lumbar scoliosis. Postoperative changes involving both proximal femurs are present. The thoracolumbar spine demonstrates mild degenerative changes at multiple levels. There is slight retrolisthesis of L2 on L3 and L3 on L4.There is no evidence of acute fracture. Soft tissues: Unremarkable. IMPRESSION: 1. New severe aguayo-colonic mural thickening, pericolonic fat stranding and mild free fluid indicating colitis. Other inflammatory/infiltrative/neoplastic/ischemic processes are also included in the differential. 2. Small amount of free fluid in the abdomen, particularly adjacent to the sigmoid colon. Some of this fluid shows mild peripheral enhancement indicating mild complexity. 3. Stable post cholecystectomy changes with pneumobilia and biliary ductal dilatation with somewhat abrupt decrease in caliber of common bile duct in the distal portion of uncertain clinical significance. Correlate clinically. Difficult to entirely exclude stricture in the appropriate clinical setting. 4. Stable proximal pancreatic calcifications consistent with chronic pancreatitis. 5. Fatty hepatic infiltration. 6. Apparent gastric mural thickening could be on the basis of incomplete distension but cannot exclude gastritis or other inflammatory or infiltrative process. Correlate clinically. Findings were discussed with Jignesh Barron at 10/15/2023 5:34 PM EST. COMMENTS: Consistent with the [employer]'s Incidental Findings Committee white paper (J Am John Radiol 2018): Any incidental renal lesion less than 1 cm or classified as too small to characterize, or any incidental cystic renal lesion characterized as simple-appearing, is likely benign. No follow-up imaging is recommended for these lesions per consensus recommendations based on imaging criteria.
--- NOTE | 2023-10-15 15:42 | ED_ITS ---
Discharge Plan Disposition Patient Disposition: Home, Self-Care Prescriptions Prescriptions: No Action pantoprazole 40 mg tablet,delayed release (DR/EC) 40 mg PO BID 30 Days Qty: 60 6RF Trelegy Ellipta 100-62.5-25 mcg blister with device 1 inh inhalation DAILY 30 Days Qty: 60 6RF lidocaine [Aspercreme (lidocaine)] 4 % adhesive patch,medicated 1 patch topical DAILY PRN Creon 24,000-76,000 -120,000 unit capsule,delayed release(DR/EC) 1 cap PO TID 30 Days Qty: 90 5RF ondansetron HCl 4 mg tablet 4 mg PO Q8H PRN (Reason: nausea and vomiting) Qty: 30 0RF nystatin 100,000 unit/mL suspension 500,000 unit PO Q6H 14 Days Qty: 280 0RF Rx Instructions: swish and spit paroxetine HCl 40 mg tablet 40 mg PO DAILY 30 Days Qty: 30 6RF temazepam 15 mg capsule 15 mg PO HS 30 Days Qty: 30 2RF hydrocodone-acetaminophen 7.5-325 mg tablet 1 tab PO Q6H PRN (Reason: pain) Qty: 20 0RF pregabalin 150 mg capsule 150 mg PO Q8H 30 Days Qty: 90 2RF Referrals Follow up/Referrals: Betty Antonio APRN [Primary Care Provider] - See instructions Clinical Impressions Clinical Impression: Chronic diarrhea, Abdominal pain, lower, Generalized weakness, Sepsis, Pancolitis Discharge ED Provider: Jignesh Barron General Adult HPI General Chief complaint: Weakness Stated complaint: Sent by Terrie Antonio critical labs Time Seen by Provider: 10/15/23 15:36 Mode of Arrival: Wheelchair Source of Information: Patient and Medical Record Limitations: No Limitations Description of Symptoms (Recalled from ER Triage Doc. by RN): PT was sent here today by PCP office due to abnormal labs, pt states 5 days ago she developed wor sening diarrhea and then this morning was so weak she could not get out of bed. pt had labs, urine, xrays done this am. History of Present Illness HPI narrative: Patient is a 63-year-old female presents today with generalized weakness. States she has had diarrhea for 2 months and has been dealing with chronic pancreatitis etiology unknown. Nobody is done any stool studies on her that she is aware of. No fevers. States she has been weak for the last 24 hours had some basic blood work done by her primary care doctor and told to come to the emergency department due to an elevated white blood cell count. Patient denies any respiratory symptoms denies any symptoms anywhere outside of her abdomen. Denies any urinary symptoms specifically and no blood in her stool. Related Data Home Medications Medication Instructions Recorded Confirmed lidocaine 4 % topical patch 1 patch topical DAILY PRN 08/16/23 10/15/23 (Aspercreme (lidocaine)) Previous Rx's Medication Instructions Recorded fluticasone fur. 100 mcg-umeclid 1 inh inhalation DAILY 30 days #60 05/14/23 62.5 mcg-vilant 25 mcg ea inhalat.powder (Trelegy Ellipta) pantoprazole 40 mg tablet,delayed 40 mg PO BID STOMACH 30 days #60 05/14/23 release tabs paroxetine HCl 40 mg tablet 40 mg PO DAILY Depression 30 days 06/10/23 #30 tabs [id number]-yxhlfsr 1 cap PO TID 30 days #90 caps 08/07/23 24,000-76,000-120,000 unit capsule,delayed rel (Creon) nystatin 100,000 unit/mL oral 500,000 unit (5 mL) PO Q6H 14 days 09/03/23 suspension #280 mL ondansetron HCl 4 mg tablet 4 mg PO Q8H PRN nausea and 09/03/23 vomiting #30 tabs temazepam 15 mg capsule 15 mg PO HS Insomnia 30 days #30 09/03/23 caps hydrocodone 7.5 mg-acetaminophen 1 tab PO Q6H PRN pain #20 tabs 10/07/23 325 mg tablet pregabalin 150 mg capsule 150 mg PO Q8H 30 days #90 caps 10/07/23 Allergies Allergy/AdvReac Type Severity Reaction Status Date / Time levofloxacin [From LEVAQUIN] Allergy Unknown SEIZURES Verified 10/15/23 11:08 [facility] Disclaimer: The information contained in this section may have been updated after the p shai was seen, as this information can be updated by other users. Medical History Bradycardia Dyspnea Gastroesophageal reflux disease Hip fracture Surgical History History of aortic valve replacement History of appendectomy History of hysterectomy History of laparoscopic cholecystectomy History of repair of both hip joints History of tonsillectomy Family History Other Diabetes Hypertension Stroke Social History Smoking Status: Current every day smoker tobacco type: cigarettes packs per day: 1 second hand exposure: Yes alcohol intake: never substance use type: other current occupational status: unemployed Travel in the last 8 weeks: None household members: family and children housing: house current occupational exposures/hazards: No caffeine: Yes ROS Obtained: Yes All systems reviewed & no additional complaints except as documented Physical Exam General General appearance: cachectic Respiratory Respiratory exam: Present normal lung sounds bilaterally Cardiovascular Cardiovascular exam: Present regular rate Abdominal Exam Abdominal exam: Present other (Patient has mild tenderness in the epigastrium with deep palpation and is more tender in the lower abdomen particularly in the suprapubic and left lower quadrant region no rebound or guarding) Neurological Exam Neurological exam: Present alert Medical Decision Making Suleman Inquiry Pt receiving controlled substance: No Vital Signs: 10/15/23 15:11 10/15/23 15:20 10/15/23 15:40 Temperature 98.9 F Temperature Source Oral Pulse Rate 99 H 104 H Pulse Rate [Right Radial] 107 H Respiratory Rate 20 Blood Pressure 163/96 H 149/95 H Blood Pressure [Right Arm] 166/85 H Blood Pressure Mean [Right Arm] 112 02 Sat by Pulse Oximetry 99 100 99 Oxygen Delivery Method Room Air Room Air Room Air 10/15/23 16:36 10/15/23 16:40 Temperature Temperature Source Pulse Rate 84 96 H Pulse Rate [Right Radial] Respiratory Rate Blood Pressure 151/80 H 112/71 Blood Pressure [Right Arm] Blood Pressure Mean [Right Arm] 02 Sat by Pulse Oximetry 98 100 Oxygen Delivery Method Room Air Room Air Lab Data Lab results reviewed: Yes I reviewed the patient's lab results. Lab Results 10/15/23 16:38: WBC 37.4 H*, RBC 4.01 L, Hgb 11.9 L D, Hct 36.4 L, MCV 90.9, MCH 29.6, MCHC 32.6, RDW 18.1 H, Plt Count 506 H, MPV 8.6, Neut % (Auto) 93.5 H, Lymph % (Auto) 4.0 L, [place] % (Auto) 1.8, Eos % (Auto) 0.5, Baso % (Auto) 0.2, Neut # (Auto) 35.0 H, Lymph # (Auto) 1.5, [place] # (Auto) 0.7, Eos # (Auto) 0.2, Baso # (Auto) 0.1, Sodium 130 L, Potassium 3.3 L, Chloride 104, Carbon Dioxide 13 L, Anion Gap 16.3 H, BUN 30 H, Creatinine 1.20 H, Estimated Creat Clear 32, Estimated GFR 45 L, Est GFR ( Amer) 55 L, Glucose 57 L, Lactate 1.0, Calcium 8.9, Phosphorus 2.8, Magnesium 1.8, Total Bilirubin 0.7, AST 70 H D, ALT 16 D, Alkaline Phosphatase 258 H, Total Protein 5.8 L, Albumin 2.8 L, Globulin 3.0, Albumin/Globulin Ratio 0.9 L, Lipase 276 10/15/23 16:38 10/15/23 16:38 Orders (Tests/Meds): ED MEDICATIONS Generic Name Dose Route Start Last Admin Trade Name Freq PRN Reason Stop Dose Admin Ceftriaxone Sodium 2 gm/ 100 mls @ 200 mls/hr 10/15/23 17:53 Sodium Chloride IV 10/15/23 18:22 ONCE ONE Metronidazole 500 mg in 100 mls @ 100 mls/hr 10/15/23 17:52 Flagyl 500mg/100ml Ivpb IV 10/15/23 18:51 ONCE ONE Sodium Chloride 10 ml 10/15/23 17:02 10/15/23 17:04 Sodium Chloride 0.9% 10ml Syr (Rad Only) IV 11/14/23 17:01 10 ml NEEDED PRN Administration Maintain IV Site Vancomycin HCl 500 mg 10/15/23 21:00 Vancomycin Hcl 50mg/Ml 150ml Kit PO 10/25/23 17:01 QID ENIO Discontinued Medications Generic Name Dose Route Start Last Admin Trade Name Freq PRN Reason Stop Dose Admin Lactated Ringer's 1,000 mls @ 999 mls/hr 10/15/23 15:45 10/15/23 16:44 Lactated Ringer's 1000 Ml Bag IV 10/15/23 16:45 999 mls/hr .Q1H1M ENIO Administration Iopamidol 75 ml 10/15/23 17:02 10/15/23 17:04 Iopamidol-370 (76%);100ml Bottle IV 10/15/23 17:03 75 ml ONCE ONE Administration Morphine Sulfate 2 mg 10/15/23 15:40 10/15/23 16:44 Morphine 4mg/Ml Syringe IV 10/15/23 15:41 2 mg ONCE ONE Administration Ondansetron HCl 4 mg 10/15/23 15:40 10/15/23 16:44 Ondansetron 4mg/2ml Vial IV 10/15/23 15:41 4 mg ONCE ONE Administration ORDERS Category Date Time Status CT abdomen pelvis w con Stat Cat Scan 10/15/23 15:40 Completed CBC w/Auto Diff [Complete Blood Count Auto Diff] Stat Lab 10/15/23 16:38 Completed CMP [Comprehensive Metabolic Panel] Stat Lab 10/15/23 16:38 Completed Diarrhea 23 Panel, PCR Stat Lab 10/15/23 15:40 Ordered Lactic Acid Stat Lab 10/15/23 16:38 Completed Lipase Stat Lab 10/15/23 16:38 Completed Magnesium Stat Lab 10/15/23 16:38 Completed Phosphorous Stat Lab 10/15/23 16:38 Completed Blood Culture Stat Micro 10/15/23 17:52 Ordered Medical Decision Narrative: Is a 63-year-old female presenting today with chronic diarrhea leukocytosis from outside labs worsening lower abdominal pain and fatigue and weakness. Differential includes dehydration from her chronic diarrhea. Patient has a differential which includes colitis which could be ischemic infectious and inflammatory specifically concerning for possible C. difficile. Will get a GI PCR panel from her diarrhea. Also will check electrolytes out give her IV fluids and symptomatic medications and reassess. CT scan of the abdomen pelvis we also performed to rule out surgical pathology. This pathology could be as above and could also include diverticulitis abscess perforation etc. Patient presented with tachycardia now has a severe leukocytosis consistent with sepsis. CT scan of the abdomen performed which I first interpreted also discussed the case with our radiologist. There is extensive severe colitis there is some pericolonic fluid collections but no definitive abscess or drainable fluid collection. Some other findings as per their report. I discussed the case with Dr. Vimal Kitchen. Patient's abdomen is reassuring on serial exams not consistent with surgical pathology. No indication for surgical intervention or consultation at the moment. Will treat her for fulminant disease for presumed C. difficile colitis with oral vancomycin and IV Flagyl also will add Rocephin until GI PCR panel came return. Patient has still been unable to provide us a stool sample as of 5:56 PM. Patient was admitted with a diagnosis of sepsis and presumed colitis likely from an infectious cause. Critical Care Critical Care Time Critical Care Time: Yes Attestation: On 10/15/23, the high probability of a clinically significant, sudden or life threatening deterioration of the following system(s) required my full and direct attention, intervention and personal management. The time I documented below is in addition to time spent performing reported procedures but includes the following listed in this critical care notation. Total Time Total Critical Care Time: 35
[2023-10-15] MEDS: ONDANSETRON 4MG/2ML VIAL 4 MG IV (16:44)
[2023-10-15] MEDS: LACTATED RINGERS 1000ML 1,000 ML 999 ML IV (16:44)
[2023-10-15] MEDS: MORPHINE 4MG/ML SYRINGE 2 MG IV (16:44)
[2023-10-15 16:50] LABS: Basophils # 0.1 K/mm3 (0-0.2); Basophils % 0.2 % (0.1-2.0); Eosinophils # 0.2 K/mm3 (0.0-0.4); Eosinophils % 0.5 % (0.1-12.0); Hematocrit 36.4 % (37.0-47.0); Lymphocytes # 1.5 K/mm3 (0.7-4.5); Mean Corpuscular HGB Conc 32.6 g/dL (31.8-35.4); Mean Corpuscular Hemoglobin 29.6 pg (27.0-31.2); Mean Corpuscular Volume 90.9 fl (81-99); Mean Platelet Volume 8.6 fl (7.4-10.4); Monocytes # 0.7 K/mm3 (0.1-1.0); Monocytes % 1.8 % (1.7-9.3); Neutrophils % 93.5 % (37.0-80.0); Platelet Count 506 K/mm3 (142-424); Red Blood Count 4.01 M/mm3 (4.20-5.40); Red Cell Distribution Width 18.1 % (11.5-17.5); White Blood Count 37.4 K/mm3 (4.8-10.8)
[2023-10-15 17:00] LABS: Alanine Aminotransferase 16 U/L (12-78); Albumin Level 2.8 g/dl (3.5-5.0); Albumin/Globulin Ratio 0.9 (1.1-1.8); Alkaline Phosphatase 258 U/L (38-126); Anion Gap 16.3 mEq/L (5-15); Aspartate Amino Transferase 70 U/L (14-36); Bilirubin,Total 0.7 mg/dl (0.2-1.3); Blood Urea Nitrogen 30 mg/dl (7-17); Calcium 8.9 mg/dl (8.4-10.2); Carbon Dioxide 13 mmol/L (22.0-30.0); Chloride 104 mmol/L (98-107); Creatinine Clearance Estimated 32 mL/min (50-200); Estimated Glomerular Filt Rate 45 ml/min (>60); GFR (African American) 55 ML/MIN (>60); Glucose 57 mg/dl (74-100); Hemoglobin 11.9 g/dL (12.2-16.2); Lipase 276 U/L (23-300); Magnesium 1.8 mg/dl (1.6-2.3); Potassium 3.3 mmoL/L (3.5-5.1); Sodium 130 mmol/L (136-145); Total Protein,Serum 5.8 g/dl (6.3-8.2)
[2023-10-15] MEDS: SODIUM CHLORIDE 0.9% 10ML SYR (RAD ONLY) 10 ML IV (17:04)
[2023-10-15] MEDS: IOPAMIDOL-370 (76%);100ML BOTTLE 75 ML IV (17:04)
[2023-10-15 17:47] LABS: Phosphorous 2.8 mg/dl (2.5-4.5)
--- NOTE | 2023-10-15 18:13 | PC.NURSE ---
pt went to bathroom, unable to use stool sample due to urine.
--- NOTE | 2023-10-15 18:22 | PC.NURSE ---
attempted to call report to the floor
--- NOTE | 2023-10-15 18:24 | PC.NURSE ---
PT RESTING IN BED NO NEEDS,CALL LIGHT AT BS
--- NOTE | 2023-10-15 18:39 | PC.NURSE ---
called report to 2nd floor nurse alvaro
[2023-10-15] MEDS: DEXTROSE 50% 50ML SYRINGE (CRASH CART) 25 ML IVP (19:03)
[2023-10-15] MEDS: CEFTRIAXONE SODIUM 2 GM in 0.9 % SODIUM CHLORIDE 100 ML IV (19:26)
--- NOTE | 2023-10-15 19:32 | PC.NURSE ---
fsbs 85 Pt gave stool sample at this time.
[2023-10-15 19:34] LABS: Adenovirus F 40/41, stool Not Detected (NotDetected); Astrovirus Not Detected (NotDetected); Campylobacter Not Detected (NotDetected); Cryptosporidium Not Detected (NotDetected); Cyclospora Cayetanesis Not Detected (NotDetected); Entamoeba histolytica Not Detected (NotDetected); Enteroaggregative E coli Not Detected (NotDetected); Enteropathogenic E coli Not Detected (NotDetected); Enterotoxigenic E coli Not Detected (NotDetected); Giardia lamblia Not Detected (NotDetected); Plesimonas Shigalloides, PCR Not Detected (NotDetected); Rotavirus A Not Detected (NotDetected); Salmonella, PCR Not Detected (NotDetected); Sapovirus Not Detected (NotDetected); Shiga-like toxin E coli Not Detected (NotDetected); Shigella Enterovasive E coli Not Detected (NotDetected); Vibrio Cholerae Not Detected (NotDetected); Vibrio, PCR Not Detected (NotDetected); Yersinia Entercolitica, PCR Not Detected (NotDetected)
--- NOTE | 2023-10-15 19:50 | PC.NURSE ---
communicated with 2nd floor RN of pt still needing sepsis bolus d/t pt being hard stick
--- NOTE | 2023-10-15 19:51 | PC.NURSE ---
pt arrived to floor via wheelchair @1950
[2023-10-15] MEDS: METRONIDAZ/SOD CHL 500 MG/100 ML PIGGYBACK 100 MG IV (20:23)
[2023-10-15] MEDS: LACTATED RINGERS 1000ML 1,500 ML 750 ML IV (20:23)
--- NOTE | 2023-10-15 20:35 | P.HP_ITS ---
Attending attestation Patient was seen and evaluated at the bedside myself, agree with AUGUSTINA note. History of Present Illness *Admission Date: 10/15/23 *Reason for visit:: Abd pain *History of present illness: This is a 63-year-old female PMHx of CVA no residual, Aortic valve replacement, no on any anticoagulant, pancreatic stent, smoker, presented today with generalized weakness, abdominal pain, diarrhea. States she has had diarrhea for 2 months and has been dealing with chronic pancreatitis etiology unknown. Nobody is done any stool studies on her that she is aware of. No fevers. States she has been weak for the last 24 hours had some basic blood work done by her primary care doctor and told to come to the emergency department due to an elevated white blood cell count. Patient denies any respiratory symptoms denies any symptoms anywhere outside of her abdomen. Denies any urinary symptoms specifically and no blood in her stool. Admitted for further treatment and management. [facility] Disclaimer: The information contained in this section may have been updated after the patient was seen, as this information can be updated by other users. Medical History Bradycardia Dyspnea Gastroesophageal reflux disease Hip fracture Surgical History History of aortic valve replacement History of appendectomy History of hysterectomy History of laparoscopic cholecystectomy History of repair of both hip joints History of tonsillectomy Family History Other Diabetes Hypertension Stroke Social History (Updated 10/15/23 @ 20:35 by Juan Amador RN) Smoking Status: Current every day smoker tobacco type: cigarettes packs per day: 1 second hand exposure: Yes alcohol intake: never substance use type: other current occupational status: unemployed Travel in the last 8 weeks: None household members: family and children housing: house current occupational exposures/hazards: No caffeine: Yes Review of Systems Review of Systems Review of systems:: pertinent systems reviewed and negative unless documented below Meds Home Medications and Allergies Home Medications Medication Instructions Recorded Confirmed Type fluticasone fur. 100 mcg-umeclid 1 inh inhalation DAILY 30 days #60 05/14/23 10/15/23 Rx 62.5 mcg-vilant 25 mcg ea inhalat.powder (Trelegy Ellipta) pantoprazole 40 mg tablet,delayed 40 mg PO BID STOMACH 30 days #60 05/14/23 10/15/23 Rx release tabs paroxetine HCl 40 mg tablet 40 mg PO DAILY Depression 30 days 06/10/23 10/15/23 Rx #30 tabs gemfsd-mwmynqae-clmgbjk 1 cap PO TID 30 days #90 caps 08/07/23 10/15/23 Rx 24,000-76,000-120,000 unit capsule,delayed rel (Creon) lidocaine 4 % topical patch 1 patch topical DAILY PRN Back Pain 08/16/23 10/15/23 History (Aspercreme (lidocaine)) ondansetron HCl 4 mg tablet 4 mg PO Q8H PRN nausea and 09/03/23 10/15/23 Rx vomiting #30 tabs temazepam 15 mg capsule 15 mg PO HS Insomnia 30 days #30 09/03/23 10/15/23 Rx caps pregabalin 150 mg capsule 150 mg PO Q8H 30 days #90 caps 10/07/23 10/15/23 Rx New Prescriptions to Start Prescriptions: Allergies Allergy/AdvReac Type Severity Reaction Status Date / Time levofloxacin [From LEVAQUIN] Allergy Unknown SEIZURES Verified 10/15/23 11:08 Exam Data for Last 24 hours Vital signs and Labs for Last 24 Hours: Temp Pulse Resp BP Pulse Ox O2 Del Method O2 Flow Rate 98 F 86 16 93/52 L 98 Room Air 1 10/16/23 00:00 10/16/23 00:00 10/16/23 00:00 10/16/23 00:00 10/16/23 00:00 10/16/23 01:00 10/15/23 21:00 Laboratory Results - last 24 hr 10/15/23 16:38: WBC 37.4 H*, RBC 4.01 L, Hgb 11.9 L D, Hct 36.4 L, MCV 90.9, MCH 29.6, MCHC 32.6, RDW 18.1 H, Plt Count 506 H, MPV 8.6, Neut % (Auto) 93.5 H, Lymph % (Auto) 4.0 L, Baxter % (Auto) 1.8, Eos % (Auto) 0.5, Baso % (Auto) 0.2, Neut # (Auto) 35.0 H, Lymph # (Auto) 1.5, Baxter # (Auto) 0.7, Eos # (Auto) 0.2, Baso # (Auto) 0.1, Sodium 130 L, Potassium 3.3 L, Chloride 104, Carbon Dioxide 13 L, Anion Gap 16.3 H, BUN 30 H, Creatinine 1.20 H, Estimated Creat Clear 32, Estimated GFR 45 L, Est GFR ( Amer) 55 L, Glucose 57 L, Lactate 1.0, Calcium 8.9, Phosphorus 2.8, Magnesium 1.8, Total Bilirubin 0.7, AST 70 H D, ALT 16 D, Alkaline Phosphatase 258 H, Total Protein 5.8 L, Albumin 2.8 L, Globulin 3.0, Albumin/Globulin Ratio 0.9 L, Lipase 276 I & O for Last 24 hours: Intake & Output 10/13/23 10/14/23 10/15/23 10/16/23 23:59 23:59 23:59 23:59 Intake Total 1869 Balance 1869 Weight 43.545 kg Constitutional Constitutional: moderate distress, cachectic and chronically ill appearing *Routine HEENT Exam Head: Present normocephalic and atraumatic Eye: Present EOMI, PERRL and normal accommodation ENT: Present mucous membranes dry *Routine Neck Exam Neck: Present supple, full ROM and trachea midline *Routine Respiratory Exam Respiratory: Present CTA bilaterally, normal respiratory effort and symmetric chest movement; Absent respiratory distress *Routine Cardiovascular Exam Cardiovascular: Present RRR, Normal S1, Normal S2 and tachycardia *Routine Abdominal Exam Abdominal: Present soft, normoactive bowel sounds and tenderness; Absent organomegaly *Routine Rectal Exam Rectal:: deferred *Routine Genitalia Exam Genitalia:: deferred *Routine Extremities Exam Extremities: Present full ROM and pulses intact; Absent cyanosis, clubbing or edema *Routine Skin Exam Skin: Present intact, dry and warm *Routine Neurological Exam Neurological: Present alert, oriented X3, normal reflexes, moving all extremities and normal speech; Absent facial asymmetry Routine Psychiatric Exam Psychiatric: Present cooperative, good insight and anxious H&P: Result Imaging and Cardiology EKG: Status: image reviewed by me and Preliminary report CT scan - abdomen: Status: image reviewed by me, Preliminary report and final report Assessment and Plan *Assessment and plan (1) Sepsis: Status: Acute Qualifiers: Sepsis type: sepsis due to unspecified organism Sepsis acute organ dysfunction status: without acute organ dysfunction Qualified Code(s): A41.9 - Sepsis, unspecified organism Category: Medical Code(s): A41.9 - Sepsis, unspecified organism (2) Pancolitis: Status: Acute Category: Medical Code(s): K51.00 - Ulcerative (chronic) pancolitis without complications (3) Chronic diarrhea: Status: Acute Category: Medical Code(s): K52.9 - Noninfective gastroenteritis and colitis, unspecified (4) Hypokalemia: Status: Acute Category: Medical Code(s): E87.6 - Hypokalemia (5) Abdominal pain, lower: Status: Acute Category: Medical Code(s): R10.30 - Lower abdominal pain, unspecified (6) Pancreatic duct stones: Status: Acute Category: Medical Code(s): K86.89 - Other specified diseases of pancreas (7) Generalized weakness: Status: Acute Category: Medical Code(s): R53.1 - Weakness Plan 63-year-old female PMHx of CVA no residual, Aortic valve replacement, no on any anticoagulant, pancreatic stent, smoker, presented today with generalized weakness, abdominal pain, diarrhea. States she has had diarrhea for 2 months and has been dealing with chronic pancreatitis etiology unknown. Patient presented with tachycardia now has a severe leukocytosis consistent with sepsis. CT scan of the abdomen performed. Imaging Reviewed. There is extensive severe colitis there is some pericolonic fluid collections but no definitive abscess or drainable fluid collection. Patient's abdomen is reassuring on serial exams not consistent with surgical pathology. No indication for surgical intervention or consultation at the moment. Findings were discussed in length with ER. Will treat her for fulminant disease for presumed C. difficile colitis with oral vancomycin and IV Flagyl. Plan as follow: -Sepsis without acute organ failure, likely secondary to pancolitis: Presented with chronic diarrhea, hypokalemia and abdominal pain Admit patient for medical services. Dispo MedSurg Continue IV hydration Replace potassium per protocol Diarrhea panel ordered. Including C. difficile Blood culture pending Continue p.o. vancomycin On Flagyl and cefepime Monitor CBC and CMP daily Watch for other electrolyte imbalance Advance diet as tolerated Contact precaution Pain management. -History of pancreatic stent chronic pancreatitis: Current conditions reviewed. No surgical intervention needed at this time. Will continue to monitor Generalized weakness Secondary to above presumably hypokalemia and chronic diarrhea Continue IV hydration Continue monitor Start increasing p.o. intake as tolerated Lovenox for DVT prophylaxis. On Protonix for GERD Full code
[2023-10-15] MEDS: MORPHINE 4MG/ML SYRINGE 4 MG IV (20:56)
[2023-10-15] MEDS: VANCOMYCIN HCL 50MG/ML 150ML KIT 500 MG PO (21:36)
[2023-10-16] VITALS (8 sets, daily range): BP systolic 76–102; BP diastolic 42–52; PULSE 74–90; RESP 15–17; TEMP 36.2–36.8; O2SAT 96–99; BMI 17.6
--- NOTE | 2023-10-16 04:06 | PC.NURSE ---
c/o abd pain earlier in shift, tx per mar. otherwise no changes and rested well.
[2023-10-16] MEDS: METRONIDAZ/SOD CHL 500 MG/100 ML PIGGYBACK 100 MG IV ×3 (04:22→20:10)
[2023-10-16] MEDS: POTASSIUM CHLORIDE 20MEQ TAB 40 MEQ PO ×2 (05:08→09:40)
[2023-10-16] MEDS: 0.9 % SODIUM CHLORIDE 1000ML 1,000 ML 999 ML IV (05:11)
[2023-10-16] MEDS: CEFEPIME HCL 2 GM in 0.9 % SODIUM CHLORIDE 100 ML IV ×3 (06:15→22:37)
[2023-10-16] MEDS: 0.9 % SODIUM CHLORIDE 1000ML 1,000 ML 100 ML IV ×2 (07:07→20:10)
[2023-10-16 07:37] LABS: Chloride 109 mmol/L (98-107)
[2023-10-16 07:38] LABS: Sodium 131 mmol/L (136-145)
[2023-10-16 07:40] LABS: Alanine Aminotransferase 10 U/L (12-78); Aspartate Amino Transferase 20 U/L (14-36); Bilirubin,Total 0.3 mg/dl (0.2-1.3); Blood Urea Nitrogen 17 mg/dl (7-17); Creatinine Clearance Estimated 39 mL/min (50-200); Estimated Glomerular Filt Rate 100 ml/min (>60); GFR (African American) 121 ML/MIN (>60)
[2023-10-16 07:41] LABS: Albumin/Globulin Ratio 0.8 (1.1-1.8); Alkaline Phosphatase 122 U/L (38-126); Anion Gap 7.9 mEq/L (5-15); Calcium 7.6 mg/dl (8.4-10.2); Carbon Dioxide 17 mmol/L (22.0-30.0); Globulin 2.6 g/dL (1.3-3.2); Glucose 62 mg/dl (74-100); Magnesium 1.3 mg/dl (1.6-2.3); Total Protein,Serum 4.6 g/dl (6.3-8.2)
[2023-10-16 07:48] LABS: C-Reactive Protein 42.2 mg/L (0-4)
[2023-10-16 07:51] LABS: Eosinophils % 0.2 % (0.1-12.0)
[2023-10-16 07:58] LABS: Potassium 2.9 mmoL/L (3.5-5.1)
[2023-10-16 08:00] LABS: Basophils % 0.1 % (0.1-2.0); Hematocrit 32.3 % (37.0-47.0); Lymphocytes # 1.3 K/mm3 (0.7-4.5); Lymphocytes % 5.9 % (10-50); Mean Corpuscular HGB Conc 32.1 g/dL (31.8-35.4); Mean Corpuscular Hemoglobin 29.4 pg (27.0-31.2); Mean Corpuscular Volume 91.7 fl (81-99); Mean Platelet Volume 8.2 fl (7.4-10.4); Monocytes # 0.6 K/mm3 (0.1-1.0); Monocytes % 2.6 % (1.7-9.3); Neutrophils # 19.9 K/mm3 (1.8-7.8); Neutrophils % 91.2 % (37.0-80.0); Platelet Count 403 K/mm3 (142-424); Red Blood Count 3.52 M/mm3 (4.20-5.40); Red Cell Distribution Width 18.3 % (11.5-17.5); White Blood Count 21.9 K/mm3 (4.8-10.8)
[2023-10-16 08:19] LABS: Hemoglobin 10.4 g/dL (12.2-16.2); MANUAL DIFFERENTIAL MANUAL DIFFERENTIAL (MANUAL DIFF)
--- NOTE | 2023-10-16 08:22 | HMH.PHAINT1 ---
Pharmacy Intervention Comments: MEDICATION RECONCILIATION COMPLETED ON PATIENT USING EXTERNAL FILL HISTORY FROM PHARMACY. -JAY LEA, CALLID
[2023-10-16 08:42] LABS: Erythrocyte Sedimentation Rate 38 mm/hr (0-30)
[2023-10-16] MEDS: HYDROMORPHONE 2MG/ML SYRINGE 0.5 MG IV ×3 (09:39→18:14)
[2023-10-16] MEDS: PANTOPRAZOLE 40MG TABLET 40 MG PO ×2 (09:40→20:10)
[2023-10-16] MEDS: ENOXAPARIN 40MG/0.4ML SYRINGE 40 MG SQ (09:40)
[2023-10-16] MEDS: VANCOMYCIN HCL 50MG/ML 150ML KIT 500 MG PO ×4 (09:40→20:10)
[2023-10-16] MEDS: MAGNESIUM OXIDE 400MG TABLET 400 MG PO (09:41)
[2023-10-16] MEDS: MIDODRINE HCL 5 MG TABLET PO ×2 (09:41→20:10)
[2023-10-16 09:56] LABS: Lymphocytes % 7 % (10-50); Monocytes % 5 % (2-9); Neutrophils % 81 % (42-76); Total Cells Counted 100
[2023-10-16 10:01] LABS: Platelet Estimate Slight Increase
[2023-10-16 10:02] LABS: Hypochromasia 1+
[2023-10-16 10:03] LABS: Anisocytosis 1+
--- NOTE | 2023-10-16 14:33 | EXP.PN ---
Subjective *Date: 10/16/23 *Time: 14:33 Interval history: patient was seen and evaluated at the bedside. Complains of abdominal pain, feeling tired fatigue generalized weakness. Otherwise denied chest pain shortness of breath Exam Data for Last 24 hours Vital signs and Labs for Last 24 Hours: Temp Pulse Resp BP Pulse Ox O2 Del Method O2 Flow Rate 98.1 F 88 17 84/47 L 96 Room Air 1 10/16/23 11:52 10/16/23 11:52 10/16/23 11:52 10/16/23 11:52 10/16/23 11:52 10/16/23 13:15 10/15/23 21:00 Laboratory Results - last 24 hr 10/15/23 16:38: WBC 37.4 H*, RBC 4.01 L, Hgb 11.9 L D, Hct 36.4 L, MCV 90.9, MCH 29.6, MCHC 32.6, RDW 18.1 H, Plt Count 506 H, MPV 8.6, Neut % (Auto) 93.5 H, Lymph % (Auto) 4.0 L, Preston % (Auto) 1.8, Eos % (Auto) 0.5, Baso % (Auto) 0.2, Neut # (Auto) 35.0 H, Lymph # (Auto) 1.5, Preston # (Auto) 0.7, Eos # (Auto) 0.2, Baso # (Auto) 0.1, Sodium 130 L, Potassium 3.3 L, Chloride 104, Carbon Dioxide 13 L, Anion Gap 16.3 H, BUN 30 H, Creatinine 1.20 H, Estimated Creat Clear 32, Estimated GFR 45 L, Est GFR ( Amer) 55 L, Glucose 57 L, Lactate 1.0, Calcium 8.9, Phosphorus 2.8, Magnesium 1.8, Total Bilirubin 0.7, AST 70 H D, ALT 16 D, Alkaline Phosphatase 258 H, Total Protein 5.8 L, Albumin 2.8 L, Globulin 3.0, Albumin/Globulin Ratio 0.9 L, Lipase 276 10/16/23 07:10: WBC 21.9 H* D, RBC 3.52 L, Hgb 10.4 L D, Hct 32.3 L, MCV 91.7, MCH 29.4, MCHC 32.1, RDW 18.3 H, Plt Count 403, MPV 8.2, Neut % (Auto) 91.2 H, Lymph % (Auto) 5.9 L, Preston % (Auto) 2.6, Eos % (Auto) 0.2, Baso % (Auto) 0.1, Neut # (Auto) 19.9 H, Lymph # (Auto) 1.3, Preston # (Auto) 0.6, Eos # (Auto) 0.0, Baso # (Auto) 0.0, Total Counted 100, Neutrophils % (Manual) 81 H, Band Neutrophils % 7.0, Lymphocytes % (Manual) 7 L, Monocytes % (Manual) 5, Platelet Estimate Slight increase, RBC Morphology Not Reportable, Hypochromasia 1+, Anisocytosis 1+, ESR 38 H, Sodium 131 L, Potassium 2.9 L*, Chloride 109 H, Carbon Dioxide 17 L, Anion Gap 7.9, BUN 17 D, Creatinine 0.60 D, Estimated Creat Clear 39, Estimated GFR 100, Est GFR ( Amer) 121 D, Glucose 62 L, Calcium 7.6 L, Magnesium 1.3 L D, Total Bilirubin 0.3, AST 20 D, ALT 10 L D, Alkaline Phosphatase 122, C-Reactive Protein 42.2 H, Total Protein 4.6 L, Albumin 2.0 L D, Globulin 2.6, Albumin/Globulin Ratio 0.8 L I & O for Last 24 hours: Intake & Output 10/13/23 10/14/23 10/15/23 10/16/23 23:59 23:59 23:59 23:59 Intake Total 1869 120 / 120 Output Total 500 / 500 Balance 1869 -380 / -380 Weight 43.545 kg 43.6 kg Constitutional Constitutional: no acute distress *Routine HEENT Exam Head: Present normocephalic Eye: Present EOMI and PERRL ENT: Present mucous membranes moist *Routine Neck Exam Neck: Present supple; Absent lymphadenopathy *Routine Respiratory Exam Respiratory: Present CTA bilaterally *Routine Cardiovascular Exam Cardiovascular: Present RRR *Routine Abdominal Exam Abdominal: Present soft and normoactive bowel sounds; Absent tenderness *Routine Extremities Exam Extremities: Absent cyanosis, clubbing or edema *Routine Skin Exam Skin: Present warm; Absent rash *Routine Neurological Exam Neurological: Present alert and oriented X3 Assessment and Plan *Assessment and plan (1) Sepsis: Status: Acute Qualifiers: Sepsis acute organ dysfunction status: without acute organ dysfunction Sepsis type: sepsis due to unspecified organism Qualified Code(s): A41.9 - Sepsis, unspecified organism Category: Medical Code(s): A41.9 - Sepsis, unspecified organism (2) Pancolitis: Status: Acute Category: Medical Code(s): K51.00 - Ulcerative (chronic) pancolitis without complications (3) Chronic diarrhea: Status: Acute Category: Medical Code(s): K52.9 - Noninfective gastroenteritis and colitis, unspecified (4) Hypokalemia: Status: Acute Category: Medical Code(s): E87.6 - Hypokalemia (5) Abdominal pain, lower: Status: Acute Category: Medical Code(s): R10.30 - Lower abdominal pain, unspecified (6) Pancreatic duct stones: Status: Acute Category: Medical Code(s): K86.89 - Other specified diseases of pancreas (7) Generalized weakness: Status: Acute Category: Medical Code(s): R53.1 - Weakness Plan Patient is a 63-year-old female with past medical history of CVA without residual deficits, aortic valve replacement, chronic pancreatitis smoking who presents to the hospital due to generalized abdominal pain and diarrhea. Assessment and plan Sepsis present on admission, likely source colitis Suspect bacterial colitis Hypokalemia Hypotension Hyponatremia Patient is a started on cefepime and Flagyl Stool sample sent for occult pathology including celiac Continue IV fluids for maintenance Replace and monitor electrolytes Hold nephrotoxic medications Generalized weakness -Consult PT/OT Likely due to electrolyte deficiency, monitor and replace electrolytes Acute kidney injury -Resolved DVT prophylaxis-Lovenox
--- NOTE | 2023-10-16 15:19 | PC.NURSE ---
Patient continues to be hypotensive. Order received for 1L LR bolus
[2023-10-16] MEDS: LACTATED RINGERS 1000ML 1,000 ML 999 ML IV (15:23)
--- NOTE | 2023-10-16 15:41 | PC.NURSE ---
Patient alert and oriented. On room air. 1L LR bolus, midodrine and maintenance fluids for hypotension. Hypoglycemia improved with clear liquid diet although oral intake continues to be minimal. Dilaudid for abdominal pain. Up with 1 to BR for voids and multiple loose stools. Continue IV antibiotics and close BP and BS monitoring
[2023-10-16 20:33] LABS: POC Glucose,Bedside 80 (70-110)
[2023-10-16] MEDS: KCl 20mEq/100ml 100 ML 50 MEQ IV ×2 (20:45→22:38)
--- NOTE | 2023-10-16 22:50 | PC.NURSE ---
IV in RAC infiltrated, bruising noted. IV removed and warm compress applied
[2023-10-17] VITALS (9 sets, daily range): BP systolic 76–118; BP diastolic 44–59; PULSE 80–104; RESP 18–26; TEMP 36.4–36.8; O2SAT 95–99; BMI 19.3
[2023-10-17] MEDS: HYDROMORPHONE 2MG/ML SYRINGE 0.5 MG IV ×3 (00:04→16:48)
[2023-10-17] MEDS: KCl 20mEq/100ml 100 ML 50 MEQ IV (01:18)
[2023-10-17] MEDS: METRONIDAZ/SOD CHL 500 MG/100 ML PIGGYBACK 100 MG IV ×3 (04:29→20:19)
--- NOTE | 2023-10-17 04:40 | PC.NURSE ---
patient has been confused tonight. Unable to give birthday but knows name and that she is at the hospital. Patient has ambulated to the toilet frequently with watery bm's. Replaced K+ via IV tonight/this morning. patient has moaned t/o night and not rested well. gave Dilaudid per oct.
[2023-10-17 05:16] LABS: POC Glucose,Bedside 71 (70-110)
[2023-10-17] MEDS: CEFEPIME HCL 2 GM in 0.9 % SODIUM CHLORIDE 100 ML IV ×3 (05:34→22:04)
[2023-10-17] MEDS: ENOXAPARIN 40MG/0.4ML SYRINGE 40 MG SQ (08:08)
[2023-10-17] MEDS: 0.9 % SODIUM CHLORIDE 1000ML 1,000 ML 100 ML IV (08:08)
[2023-10-17] MEDS: PANTOPRAZOLE 40MG TABLET 40 MG PO ×2 (08:08→20:19)
[2023-10-17] MEDS: VANCOMYCIN HCL 50MG/ML 150ML KIT 500 MG PO ×4 (08:08→20:19)
[2023-10-17] MEDS: MIDODRINE HCL 5 MG TABLET PO ×2 (08:08→20:19)
--- NOTE | 2023-10-17 09:29 | CT_ITS ---
FINAL REPORT CLINICAL HISTORY: CVA? COMPARISON: 01/05/2022 FINDINGS: Axial images of the head were obtained without contrast. Coronal reformatted images were also obtained.This study was performed with techniques to keep radiation doses as low as reasonably achievable (ALARA). Individualized dose reduction techniques using automated exposure control or adjustment of mA and/or kV according to the patient's size were employed. There is no evidence of intracranial hemorrhage or mass. The ventricular size is within normal limits. There is no evidence of shift of the midline structures. No abnormal extra axial fluid collection is identified. No skull abnormality is seen on the bone window images. IMPRESSION: No acute intracranial abnormality. Reviewed, Interpreted and Dictated by Charles Wu III, MD Transcribed by Adelina Martinez Authenticated and [facility]
--- NOTE | 2023-10-17 09:44 | PC.NURSE ---
RADIOLOGY AWARE OF CT
--- NOTE | 2023-10-17 09:45 | PC.NURSE ---
HOSPITALIST AWARE OF IMPROVED BP AFTER MEDS. NO NEW ORDERS.
--- NOTE | 2023-10-17 09:46 | PC.NURSE ---
LAB AWARE OF MORNING LABS ORDERED ON PT.
--- NOTE | 2023-10-17 09:49 | PC.NURSE ---
SPEECH AWARE OF EVAL.
--- NOTE | 2023-10-17 10:09 | PC.NURSE ---
PT TRANSPORTED TO RADIOLOGY VIA WHEELCHAIR.
[2023-10-17 10:10] LABS: Basophils # 0.1 K/mm3 (0-0.2); Basophils % 0.4 % (0.1-2.0); Eosinophils % 0.1 % (0.1-12.0); Hematocrit 32.7 % (37.0-47.0); Hemoglobin 10.7 g/dL (12.2-16.2); Lymphocytes % 4.7 % (10-50); Mean Corpuscular HGB Conc 32.9 g/dL (31.8-35.4); Mean Corpuscular Hemoglobin 29.9 pg (27.0-31.2); Mean Corpuscular Volume 90.9 fl (81-99); Mean Platelet Volume 8.2 fl (7.4-10.4); Monocytes # 0.6 K/mm3 (0.1-1.0); Monocytes % 2.6 % (1.7-9.3); Neutrophils % 92.1 % (37.0-80.0); Platelet Count 420 K/mm3 (142-424); Red Blood Count 3.59 M/mm3 (4.20-5.40); Red Cell Distribution Width 18.3 % (11.5-17.5); White Blood Count 21.7 K/mm3 (4.8-10.8)
[2023-10-17 10:15] LABS: MANUAL DIFFERENTIAL MANUAL DIFFERENTIAL (MANUAL DIFF)
[2023-10-17 10:21] LABS: Anion Gap 11.9 mEq/L (5-15); Blood Urea Nitrogen 6 mg/dl (7-17); Calcium 7.9 mg/dl (8.4-10.2); Carbon Dioxide 17 mmol/L (22.0-30.0); Chloride 109 mmol/L (98-107); Creatinine Clearance Estimated 42 mL/min (50-200); Estimated Glomerular Filt Rate 124 ml/min (>60); GFR (African American) 150 ML/MIN (>60); Glucose 72 mg/dl (74-100); Sodium 135 mmol/L (136-145)
[2023-10-17 10:31] LABS: Lymphocytes % 8 % (10-50); Monocytes % 5 % (2-9); Neutrophils % 87 % (42-76); Platelet Estimate Slight Increase; RBC Morphology Normal; Total Cells Counted 100
--- NOTE | 2023-10-17 10:31 | HMH.PTEV ---
Physical Therapy Evaluation Rehab PT IP Evaluation Start: 10/17/23 07:40 Freq: ONCE Status: Active Protocol: Document 10/17/23 10:25 QUINTIN (Rec: 10/17/23 10:31 QUINTIN [email or web address]) Subjective/History History History Per H&P: This is a 63-year-old female PMHx of CVA no residual, Aortic valve replacement, no on any anticoagulant, pancreatic stent, smoker, presented today with generalized weakness, abdominal pain, diarrhea. States she has had diarrhea for 2 months and has been dealing with chronic pancreatitis etiology unknown. Nobody is done any stool studies on her that she is aware of. No fevers. States she has been weak for the last 24 hours had some basic blood work done by her primary care doctor and told to come to the emergency department due to an elevated white blood cell count. Patient denies any respiratory symptoms denies any symptoms anywhere outside of her abdomen. Denies any urinary symptoms specifically and no blood in her stool. Admitted for further treatment and management. Subjective Subjective Pt distressed and crying upon arrival. PT provided empathetic listening as pt was unable to recall why she was upset. Pt required multiple attmepts to verbalize her name and displayed general confusion. Unable to recall PLOF. New diagnosis of cancer in past 12 No months? Rehab PT IP Eval Objective Appearance Patient Behavior Crying,Confused Difficulty following instructions mild Speech Pattern Aphasic Ambulation Patient Able to Ambulate No Balance Ability to Arise Able, uses arms to help Sitting Balance Steady, safe Standing Balance Unsteady Transfers Bed Transfer Ability Minimal x 1 (25% assist) Sit to Stand Bed Transfer Ability Minimal x 2 (25% assist) Rehab PT IP prob,goals,plan Problems Date of Evaluation: 10/17/23 PT IP Problems Bed Mobility,Transfers,Gait, Balance,Self care,Safety Rehab Potential Rehab Potential Good Equipment Needs Assistive Devices Rolling / Wheeled Walker Plan PT Intervention Plan Bed Mobility,Transfers,Gait, Balance,Safety,Therapeutic Exercise Other Intervention Plan 1-2 times PT Plan Frequency Daily Duration LOS Discharge Goals Bed Transfer Ability Supervision/Stand by Sit to Stand Chair Transfer Ability Contact Guard/Hand Hold Ambulation Assistive Device Rolling Walker Ambulation Distance (feet) 10 Discharge Plan PT Discharge Plan Pt not safe to return home at this time d/t current level of functional mobility. PT recommending short-term rehabilitation stay upon d/c from [facility]. Pt would benefit from skilled PT while at [facility] to prevent further functional decline and maximize safety with mobility. Eval Complexity Eval Charge Codes 08734 - High Complexity PHYSICIAN CERTIFICATION: I certify the specified therapy services for Caitlyn Mcbride are required, authorized, and reviewed every 30 days.
--- NOTE | 2023-10-17 11:10 | PC.NURSE ---
REVIEWING PATIENT'S LABS. K NOTED AT 2.9. NOTIFIED DR MAYERS. STATED HE WOULD PUT ORDERS IN FOR POTASSIUM.
--- NOTE | 2023-10-17 11:16 | PC.NURSE ---
LAB CALLED WITH CRITICAL RESULT K 2.9 DR MAYERS ALREADY NOTIFIED.
[2023-10-17 11:17] LABS: Potassium 2.9 mmoL/L (3.5-5.1)
--- NOTE | 2023-10-17 11:18 | HMH.OTEV ---
OT Inpatient Evaluation Rehab OT IP Evaluation Start: 10/17/23 07:40 Freq: ONCE Status: Active Protocol: Document 10/17/23 11:06 TOMA (Rec: 10/17/23 11:18 [facility] [id number]) Rehab OT IP Assessment Subjective History Pt tearful and confused on arrival. Pt provided several attempt to pronounce her name but had difficulty with word finding and speech MD and nurse notified. Pt appears confused and stressed at this time. Pt unable to provide any information about previous level of functioning. Pt admitted on 10/15/23 due to colitis and sepsis. Per H&P: This is a 63-year-old female PMHx of CVA no residual, Aortic valve replacement, no on any anticoagulant, pancreatic stent, smoker, presented today with generalized weakness, abdominal pain, diarrhea. States she has had diarrhea for 2 months and has been dealing with chronic pancreatitis etiology unknown. Nobody is done any stool studies on her that she is aware of. No fevers. States she has been weak for the last 24 hours had some basic blood work done by her primary care doctor and told to come to the emergency department due to an elevated white blood cell count. Patient denies any respiratory symptoms denies any symptoms anywhere outside of her abdomen. Denies any urinary symptoms specifically and no blood in her stool. Admitted for further treatment and management. Subjective Pt resting in bed on arrival crying and in apparent stress. Objective Right Upper Extremity Gross ROM WFL Left Upper Extremity Gross ROM WFL Bed Mobility bed mobility-scooting,bed mobility - supine/sit Assist Level Minimal x 2 (25% assist) Transfer Training Sit/Stand Transfer Assist Level Minimal x 1 (25% assist) Lower Body Dressing Ability Maximum Assistance Performing Toilet Hygiene Ability Maximum Assistance Rehab OT IP prob,goals,plan Problems Date of Evaluation: 10/17/23 OT IP Problems Bed Mobility,Transfers,Balance ,Self care,Safety Rehab Potential Rehab Potential Fair Equipment Needs Assistive Devices Rolling / Wheeled Walker Plan OT intervention Plan Bed Mobility,Transfers,Balance ,Self care,Safety,Therapeutic Exercise OT Plan Frequency Daily Duration LOS Discharge Goals Bed Mobility Ability Assistance x1 Sit to Stand Chair Transfer Ability Contact Guard/Hand Hold Chair Transfer Ability Contact Guard/Hand Hold Chair Transfer Technique Sit to/from Ambulatory Chair Transfer Assistive Devices Rolling Walker Feeding Ability Assist with Tray Set Up Lower Body Dressing Ability Moderate Assistance Upper Body Dressing Ability Minimal Assistance Bathing Ability Moderate Assistance Performing Toilet Hygiene Ability Moderate Assistance Overall Commode/Toilet Transfer Ability Contact Guard Commode/Toilet Transfer Technique Sit to/from Ambulatory Commode/Toilet Transfer Assistive Grab Bars Devices Oral Care Assist Standby Assistance Discharge Plan OT Discharge Plan Pt will continue to be seen for OT services while at [facility]. Pt not safe to return home at this time d/t current level of functional mobility. OT recommending short-term rehabilitation stay upon d/c from [facility] for continued skilled therapy services. Eval Complexity Eval Charge Codes 30230 - Moderate Complexity PHYSICIAN CERTIFICATION: I certify the specified therapy services for Caitlyn Mcbride are required, authorized, and reviewed every 30 days.
[2023-10-17 11:20] LABS: POC Glucose,Bedside 81 (70-110)
[2023-10-17] MEDS: KCl 10mEq/100ml 100 ML 100 MEQ IV ×3 (12:04→14:17)
[2023-10-17] MEDS: POTASSIUM CHLORIDE 10MEQ TABLET.ER 30 MEQ PO (12:04)
--- NOTE | 2023-10-17 13:42 | HMH.SLAPHASI ---
Speech & Language Evaluation Speech/Language Aphasia Evaluation Start: 10/17/23 13:27 Freq: once Status: Complete Protocol: Document 10/17/23 13:29 BALTAZAR (Rec: 10/17/23 13:42 BALTAZAR [id number]) Aphasia Assessment/Goals/Plan Assessment Date of Evaluation: 10/17/23 Evaluation Type Initial Certification Assessment/Problems Speech eval per MD request. Does Patient Qualify for Service Yes Qualify/Failure Comment Based on clinical observations made during informal cognitive-linguistic evaluation at the bedside, Ms. Mcbride would benefit from skilled speech therapy services to addreess expressive and receptive language, as well as cognitive -linguistic deficits in order to improve functional communication skills across multiple settings and environments. 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 Increase cognitive skills to communicate Yes: 70% w/family & friends Education Instructions provided Discussed evaluation results and POC with pt, nursing, and care management all of which expressed understanding. Pt/Caregiver Able to Recall Information Able to recall/restate Reinforcement needed No Speech & Language HPI History Present Illness Description of Patient Problem [employer]IAN pulled following information from H&P dated , 63-year-old female PMHx of CVA no residual, Aortic valve replacement, no on any anticoagulant, pancreatic stent, smoker, presented today with generalized weakness, abdominal pain, diarrhea. States she has had diarrhea for 2 months and has been dealing with chronic pancreatitis etiology unknown. Nobody is done any stool studies on her that she is aware of. No fevers. States she has been weak for the last 24 hours had some basic blood work done by her primary care doctor and told to come to the emergency department due to an elevated white blood cell count. Patient denies any respiratory symptoms denies any symptoms anywhere outside of her abdomen. Denies any urinary symptoms specifically and no blood in her stool. Admitted for further treatment and management. Head CT dated 10/17/23 impressions reported no acute intracranial abnormality. Rehab Services Assessed Speech therapy Language Primary Language Frisian Aphasia Evaluations Communication Speech Intelligibility Speech is fluent, pt is observed to have word finding difficulties and deficits in memory and receptive language. However, is 100% intelligible . Auditory Comprehension No: Word Level Sentences Following Directions Conversation AC Comment Pt was able to repeat words provided at word level, however, was unable to follow commands. She also was observed to have difficulty following a conversation, appeared confused and became easily agitated. RC Comment Not tested 2' difficulty with receptive language. Verbal Expressive Language Yes: Repetition Abilities No: Automatic Speech Completing Sentences Word Level Naming GIOVANNA Comment Pt is able to repeat single words, however, 2' difficulty following receptively and comprehending spoken words, she was unable to complete automatic naming task. When prompted to name objects around room, pt required max to 1:1 phonemic and semantic prompts/cues, FO2, and at times an exaggerated model. Written Language No: Copy Shapes WL Comment Pt was requested to complete a portion of MOCA and became upset at request. She stated that it was hard. Attending/Orientation/Memory No: Delayed Recall W/ Interference Orientation Attention/Concentration Memory AOM Comment Pt was unable to provide name or birthday without assist and FO2. PHYSICIAN CERTIFICATION: I certify the specified therapy services for Caitlyn Mcbride are required, authorized, and reviewed every 30 days.
--- NOTE | 2023-10-17 14:21 | PC.NURSE ---
Small red area to coccyx and blachable, mepilex placed.
--- NOTE | 2023-10-17 14:30 | SW/DCPLANNER ---
Addendum entered by Emilee Prince 10/18/23 11:14: [facility] stated that she can accept this patient pending CDiff results: if negative she can accept if positive unsure if able to accept. I will continue to watch for results and fax to [facility] once resulted. Patient will require precert prior to admission if accepted. Original Note: I attempted to speak w/ patient regarding plans once medically stable for discharge. Patient was unable to tell me her last name, or location. I called and spoke w/ daughter regarding discharge plan. PT/OT evaluated patient and recommended SNF level of care. Daughter is agreeable for patient information to be faxed to [facility]. I will fax patient information and follow up w/ Rani once reviewed. Discharge date is unknown at this time.
--- NOTE | 2023-10-17 16:44 | P.PN_ITS ---
Subjective *Date: 10/17/23 *Time: 16:44 Interval history: patient was seen and evaluated at the bedside. Complains of abdominal pain, feeling tired fatigue generalized weakness. Otherwise denied chest pain shortness of breath Exam Data for Last 24 hours Vital signs and Labs for Last 24 Hours: Temp Pulse Resp BP Pulse Ox O2 Del Method O2 Flow Rate 97.7 F 94 H 20 111/57 L 99 Room Air 1 10/17/23 16:00 10/17/23 16:00 10/17/23 16:00 10/17/23 16:00 10/17/23 16:00 10/17/23 16:00 10/15/23 21:00 Laboratory Results - last 24 hr 10/16/23 20:27: POC Glucose 80 10/17/23 05:08: POC Glucose 71 10/17/23 10:02: WBC 21.7 H*, RBC 3.59 L, Hgb 10.7 L, Hct 32.7 L, MCV 90.9, MCH 29.9, MCHC 32.9, RDW 18.3 H, Plt Count 420, MPV 8.2, Neut % (Auto) 92.1 H, Lymph % (Auto) 4.7 L, [place] % (Auto) 2.6, Eos % (Auto) 0.1, Baso % (Auto) 0.4, Neut # (Auto) 20.0 H, Lymph # (Auto) 1.0, [place] # (Auto) 0.6, Eos # (Auto) 0.0, Baso # (Auto) 0.1, Total Counted 100, Neutrophils % (Manual) 87 H, Lymphocytes % (Manual) 8 L, Monocytes % (Manual) 5, Platelet Estimate Slight increase, RBC Morphology Normal, Sodium 135 L, Potassium 2.9 L*, Chloride 109 H, Carbon Dioxide 17 L, Anion Gap 11.9, BUN 6 L D, Creatinine 0.50 L, Estimated Creat Clear 42, Estimated GFR 124, Est GFR ( Amer) 150 D, Glucose 72 L, Calcium 7.9 L 10/17/23 11:13: POC Glucose 81 I & O for Last 24 hours: Intake & Output 10/14/23 10/15/23 10/16/23 10/17/23 23:59 23:59 23:59 23:59 Intake Total 1870 / 1870 3420 / 3420 1120 / 1120 Output Total 1700 / 1700 0 / 0 Balance 1870 / 1870 1720 / 1720 1120 / 1120 Weight 43.545 kg 43.6 kg 47.8 kg Constitutional Constitutional: no acute distress *Routine HEENT Exam Head: Present normocephalic Eye: Present EOMI and PERRL ENT: Present mucous membranes moist *Routine Neck Exam Neck: Present supple; Absent lymphadenopathy *Routine Respiratory Exam Respiratory: Present CTA bilaterally *Routine Cardiovascular Exam Cardiovascular: Present RRR *Routine Abdominal Exam Abdominal: Present soft and normoactive bowel sounds; Absent tenderness *Routine Extremities Exam Extremities: Absent cyanosis, clubbing or edema *Routine Skin Exam Skin: Present warm; Absent rash *Routine Neurological Exam Neurological: Present alert and oriented X3 Assessment and Plan *Assessment and plan (1) Sepsis: Status: Acute Qualifiers: Sepsis acute organ dysfunction status: without acute organ dysfunction Sepsis type: sepsis due to unspecified organism Qualified Code(s): A41.9 - Sepsis, unspecified organism Category: Medical Code(s): A41.9 - Sepsis, unspecified organism (2) Pancolitis: Status: Acute Category: Medical Code(s): K51.00 - Ulcerative (chronic) pancolitis without complications (3) Chronic diarrhea: Status: Acute Category: Medical Code(s): K52.9 - Noninfective gastroenteritis and colitis, unspecified (4) Hypokalemia: Status: Acute Category: Medical Code(s): E87.6 - Hypokalemia (5) Abdominal pain, lower: Status: Acute Category: Medical Code(s): R10.30 - Lower abdominal pain, unspecified (6) Pancreatic duct stones: Status: Acute Category: Medical Code(s): K86.89 - Other specified diseases of pancreas (7) Generalized weakness: Status: Acute Category: Medical Code(s): R53.1 - Weakness Plan Patient is a 63-year-old female with past medical history of CVA without residual deficits, aortic valve replacement, chronic pancreatitis smoking who presents to the hospital due to generalized abdominal pain and diarrhea. Assessment and plan Sepsis present on admission, likely source colitis Suspect bacterial colitis Hypokalemia Hypotension Hyponatremia Patient is a started on cefepime and Flagyl Stool sample sent for occult pathology -pending Continue IV fluids for maintenance Replace and monitor electrolytes Hold nephrotoxic medications Generalized weakness -Consult PT/OT Likely due to electrolyte deficiency, monitor and replace electrolytes Acute kidney injury -Resolved DVT prophylaxis-Lovenox
[2023-10-17] MEDS: ACETAMINOPHEN 325MG TAB 650 MG PO (19:41)
[2023-10-17 20:33] LABS: POC Glucose,Bedside 78 (70-110)
[2023-10-18] VITALS: BP 130/62; PULSE 87; RESP 26; TEMP 36.6; O2SAT 100
[2023-10-18] MEDS: HYDROMORPHONE 2MG/ML SYRINGE 0.5 MG IV (03:21)
[2023-10-18 04:00] VITALS: BP 107/63; PULSE 88; PULSE 89; RESP 24; TEMP 36.8; O2SAT 96; BMI 19.4
[2023-10-18] MEDS: METRONIDAZ/SOD CHL 500 MG/100 ML PIGGYBACK 100 MG IV ×3 (04:26→20:34)
[2023-10-18] MEDS: 0.9 % SODIUM CHLORIDE 1000ML 1,000 ML 100 ML IV (04:39)
[2023-10-18] MEDS: CEFEPIME HCL 2 GM in 0.9 % SODIUM CHLORIDE 100 ML IV ×3 (05:36→21:43)
[2023-10-18 05:46] LABS: POC Glucose,Bedside 78 (70-110)
--- NOTE | 2023-10-18 06:07 | PC.NURSE ---
PATIENT ORIENTED TO PERSON. MOANS AND GROANS CONSTANTLY. WHEN ASKED WHAT IS WRONG SHE IS UNABLE TO SAY WHY. STATES, I DON'T KNOW. STAFF HAS TO GUESS WHAT THE PROBLEM IS. IMPULSIVE AT TIMES. GETS OOB WITHOUT CALLING FOR ASSIST AND IS UNSTEADY. BED ALARM ON. HAS BEEN INCONT OF B&B. STOOLS MUCOUS LIKE LIQ YELLOWISH GREEN SMALL AMTS. REMAINS ON CONTACT ENTERIC PRECAUTIONS.
[2023-10-18 06:25] LABS: Chloride 109 mmol/L (98-107); Sodium 132 mmol/L (136-145)
[2023-10-18 06:28] LABS: Anion Gap 12.9 mEq/L (5-15); Blood Urea Nitrogen 3 mg/dl (7-17); Calcium 7.3 mg/dl (8.4-10.2); Carbon Dioxide 13 mmol/L (22.0-30.0); Creatinine Clearance Estimated 42 mL/min (50-200); Estimated Glomerular Filt Rate 124 ml/min (>60); GFR (African American) 150 ML/MIN (>60); Glucose 67 mg/dl (74-100)
[2023-10-18 06:29] LABS: Magnesium 1.2 mg/dl (1.6-2.3)
[2023-10-18 06:42] LABS: Potassium 2.9 mmoL/L (3.5-5.1)
--- NOTE | 2023-10-18 06:47 | PC.NURSE ---
0645 RECEIVED REPORT FROM LAB. CRITICAL POTASSIUM LEVEL 2.9. CALLED ROMAN Redmond NP AND LEFT GENARO MONGE.
--- NOTE | 2023-10-18 06:49 | PC.NURSE ---
PAULETTE Redmond NP NOTIFIED BY PHONE RE POTASSIUM LEVEL 2.9.
[2023-10-18 07:39] VITALS: O2SAT 99
[2023-10-18] MEDS: 0.9% NaCl w/40mEq KCL 1,000 ML 100 ML IV (07:53)
[2023-10-18] MEDS: ENOXAPARIN 40MG/0.4ML SYRINGE 40 MG SQ (07:53)
[2023-10-18] MEDS: PANTOPRAZOLE 40MG TABLET 40 MG PO ×2 (07:54→20:34)
[2023-10-18] MEDS: MIDODRINE HCL 5 MG TABLET PO ×2 (07:54→20:34)
[2023-10-18] MEDS: ACETAMINOPHEN 325MG TAB 650 MG PO (07:54)
[2023-10-18 08:00] VITALS: BP 114/61; PULSE 64; PULSE 90; RESP 20; TEMP 36.9; O2SAT 100
[2023-10-18] MEDS: VANCOMYCIN HCL 50MG/ML 150ML KIT 500 MG PO ×4 (08:01→20:34)
[2023-10-18] MEDS: ONDANSETRON 4MG/2ML VIAL 4 MG IV (08:02)
[2023-10-18 08:07] LABS: Basophils # 0.1 K/mm3 (0-0.2); Basophils % 0.7 % (0.1-2.0); Eosinophils # 0.1 K/mm3 (0.0-0.4); Eosinophils % 0.3 % (0.1-12.0); Hematocrit 32.8 % (37.0-47.0); Hemoglobin 10.4 g/dL (12.2-16.2); Lymphocytes # 1.2 K/mm3 (0.7-4.5); Lymphocytes % 7.5 % (10-50); Mean Corpuscular HGB Conc 31.8 g/dL (31.8-35.4); Mean Corpuscular Hemoglobin 29.4 pg (27.0-31.2); Mean Corpuscular Volume 92.6 fl (81-99); Monocytes # 0.5 K/mm3 (0.1-1.0); Monocytes % 3.3 % (1.7-9.3); Neutrophils # 13.8 K/mm3 (1.8-7.8); Neutrophils % 88.2 % (37.0-80.0); Platelet Count 421 K/mm3 (142-424); Red Blood Count 3.54 M/mm3 (4.20-5.40); Red Cell Distribution Width 18.4 % (11.5-17.5); White Blood Count 15.6 K/mm3 (4.8-10.8)
[2023-10-18 08:20] LABS: MANUAL DIFFERENTIAL MANUAL DIFFERENTIAL (MANUAL DIFF)
--- NOTE | 2023-10-18 09:06 | XR_ITS ---
FINAL REPORT CLINICAL HISTORY: SOB COMPARISON: 09/06/2023 FINDINGS: SINGLE-VIEW CHEST The heart size is normal. Patient is status post median sternotomy. The lungs are clear. There is no pneumothorax. IMPRESSION: No acute cardiopulmonary process. Reviewed, Interpreted and Dictated by Charles Wu III, MD Transcribed by Cassandra Burgos Authenticated and . [facility]
[2023-10-18 09:28] LABS: Lymphocytes % 13 % (10-50); Monocytes % 4 % (2-9); Neutrophils % 83 % (42-76); Total Cells Counted 100
[2023-10-18 09:31] LABS: Platelet Estimate Normal; RBC Morphology Normal
[2023-10-18 09:36] LABS: Ammonia 11 umol/L (9-30)
--- NOTE | 2023-10-18 09:36 | MR_ITS ---
FINAL REPORT CLINICAL HISTORY: CVA, BEST IMAGES POSSIBLE PT VERY ALTERED AND COULD NOT HOLD STILL, PT WAS GIVEN ATIVAN BY NURSING AND STILL COULDNT HOLD STILL COMPARISON: 10/03/2021 FINDINGS: Multiplanar MR imaging of the brain was performed without contrast. Severe motion artifact is identified on all of the images. No definite mass is identified. The ventricles are normal. There is no abnormal restricted diffusion. IMPRESSION: Limited study. No definite acute abnormality. Reviewed, Interpreted and Dictated by Charles Wu III, MD Transcribed by Cassandra Burgos Authenticated and [facility]
[2023-10-18 10:07] LABS: Thyroid Stimulating Hormone 3.89 uIU/mL (0.465-4.68)
[2023-10-18 10:16] LABS: POC Glucose,Bedside 74 (70-110)
[2023-10-18] MEDS: LORazepam 2MG/ML VIAL 1 MG IV (12:42)
[2023-10-18 14:31] LABS: Clostridium Difficile A/B, PCR Detected (NotDetected); Norovirus Detected (NotDetected)
[2023-10-18 16:00] VITALS: BP 100/57; PULSE 100; PULSE 91; RESP 16; TEMP 36.6; O2SAT 100
[2023-10-18 16:08] LABS: POC Glucose,Bedside 84 (70-110)
--- NOTE | 2023-10-18 17:09 | PC.NURSE ---
Pt is more confused today and not able to state her name, assist times 1-2 to ambulate, turn q2 hours with assist as needed, 02 95% on ra, brief for periods of inc, positive stool for cdiff and norovirus, needs a urine to be sent.
--- NOTE | 2023-10-18 17:22 | P.PN_ITS ---
Subjective *Date: 10/18/23 *Time: 17:23 Interval history: appears more confused, not holding meaningful conversations, no acute events overnight Exam Data for Last 24 hours Vital signs and Labs for Last 24 Hours: Temp Pulse Resp BP Pulse Ox O2 Del Method O2 Flow Rate 98.4 F 100 H 20 114/61 100 Room Air 1 10/18/23 08:00 10/18/23 16:00 10/18/23 08:00 10/18/23 08:00 10/18/23 08:00 10/18/23 17:18 10/15/23 21:00 Laboratory Results - last 24 hr 10/15/23 19:28: Stl Aeromonas (PCR) Not detected, Stl C. cayetanensis PCR Not detected, Stool Rotavirus (PCR) Not detected, Stl Adenov F 40/41 PCR Not detected, Stool Astrovirus (PCR) Not detected, Stool Campylobacter PCR Not detected, Stl C.difficile Tox PCR Detected A, Stool Cryptosporidium PCR Not detected, Stl E.coli Shiga Tox PCR Not detected, Stool E coli O157 PCR TNP, Stl Enterotoxigenic E PCR Not detected, Stool EPEC (PCR) Not detected, Stool EAEC (PCR) Not detected, Stl E. histolytica PCR Not detected, Stool Giardia Lamblia PCR Not detected, Stool Salmonella PCR Not detected, Stool Sapovirus (PCR) Not detected, Stl P. shigelloides PCR Not detected, Stl Shigella/EIEC PCR Not detected, St Y.enterocolitica PCR Not detected, Stool Vibrio (PCR) Not detected, Stl Vibrio cholerae PCR Not detected, Stl Norovirus GI/GII PCR Detected A 10/17/23 20:24: POC Glucose 78 10/18/23 05:08: POC Glucose 78 10/18/23 05:45: Sodium 132 L, Potassium 2.9 L*, Chloride 109 H, Carbon Dioxide 13 L, Anion Gap 12.9, BUN 3 L D, Creatinine 0.50 L, Estimated Creat Clear 42, Estimated GFR 124, Est GFR ( Amer) 150, Glucose 67 L, Calcium 7.3 L, Magnesium 1.2 L 10/18/23 07:30: WBC 15.6 H D, RBC 3.54 L, Hgb 10.4 L, Hct 32.8 L, MCV 92.6, MCH 29.4, MCHC 31.8, RDW 18.4 H, Plt Count 421, MPV 8.0, Neut % (Auto) 88.2 H, Lymph % (Auto) 7.5 L, [place] % (Auto) 3.3, Eos % (Auto) 0.3, Baso % (Auto) 0.7, Neut # (Auto) 13.8 H, Lymph # (Auto) 1.2, [place] # (Auto) 0.5, Eos # (Auto) 0.1, Baso # (Auto) 0.1, Total Counted 100, Neutrophils % (Manual) 83 H, Lymphocytes % (Manual) 13, Monocytes % (Manual) 4, Platelet Estimate Normal, RBC Morphology Normal 10/18/23 09:18: Ammonia 11, TSH 3.89 10/18/23 10:09: POC Glucose 74 10/18/23 16:01: POC Glucose 84 I & O for Last 24 hours: Intake & Output 10/15/23 10/16/23 10/17/23 10/18/23 23:59 23:59 23:59 23:59 Intake Total 1870 / 1870 3420 / 3420 1862 / 1862 900 / 900 Output Total 1700 / 1700 0 / 0 0 / 0 Balance 1870 / 1870 1720 / 1720 1862 / 1862 900 / 900 Weight 43.545 kg 43.6 kg 47.8 kg 47.9 kg Constitutional Comments: appears confused, weak and frail *Routine HEENT Exam Head: Present normocephalic Eye: Present EOMI and PERRL ENT: Present mucous membranes moist *Routine Neck Exam Neck: Present supple; Absent lymphadenopathy *Routine Respiratory Exam Respiratory: Present CTA bilaterally *Routine Cardiovascular Exam Cardiovascular: Present RRR *Routine Abdominal Exam Abdominal: Present soft and normoactive bowel sounds; Absent tenderness *Routine Extremities Exam Extremities: Absent cyanosis, clubbing or edema *Routine Skin Exam Skin: Present warm; Absent rash *Routine Neurological Exam Neurological: Present alert Comments: confused and not holding conversations Assessment and Plan *Assessment and plan (1) Sepsis: Status: Acute Qualifiers: Sepsis acute organ dysfunction status: without acute organ dysfunction Sepsis type: sepsis due to unspecified organism Qualified Code(s): A41.9 - Sepsis, unspecified organism Category: Medical Code(s): A41.9 - Sepsis, unspecified organism (2) Pancolitis: Status: Acute Category: Medical Code(s): K51.00 - Ulcerative (chronic) pancolitis without complications (3) Chronic diarrhea: Status: Acute Category: Medical Code(s): K52.9 - Noninfective gastroenteritis and colitis, unspecified (4) Hypokalemia: Status: Acute Category: Medical Code(s): E87.6 - Hypokalemia (5) Abdominal pain, lower: Status: Acute Category: Medical Code(s): R10.30 - Lower abdominal pain, unspecified (6) Pancreatic duct stones: Status: Acute Category: Medical Code(s): K86.89 - Other specified diseases of pancreas (7) Generalized weakness: Status: Acute Category: Medical Code(s): R53.1 - Weakness Plan Patient is a 63-year-old female with past medical history of CVA without residual deficits, aortic valve replacement, chronic pancreatitis smoking who presents to the hospital due to generalized abdominal pain and diarrhea. Assessment and plan Sepsis present on admission, likely source colitis Suspect bacterial colitis Hypokalemia Hypotension Hyponatremia Acute encephalopthy - Patient positive for C diff and Noro virus, can not rule out viral encephalitis - continue PO vancomycin - MRI non conclusive, CT head unremarkable - continue IV abx for now, low threshold for transfer to higher level of care cefepime and Flagyl Stool sample sent for occult pathology -pending Continue IV fluids for maintenance Replace and monitor electrolytes Hold nephrotoxic medications Generalized weakness -Consult PT/OT Likely due to electrolyte deficiency, monitor and replace electrolytes Acute kidney injury -Resolved DVT prophylaxis-Lovenox
[2023-10-18 20:00] VITALS: BP 111/64; PULSE 86; PULSE 87; RESP 16; TEMP 36.7; O2SAT 100
[2023-10-18 20:32] LABS: POC Glucose,Bedside 71 (70-110)
[2023-10-19] VITALS: BP 112/67; PULSE 90; PULSE 91; RESP 16; TEMP 36.6; O2SAT 98
[2023-10-19] MEDS: 0.9% NaCl w/40mEq KCL 1,000 ML 100 ML IV ×2 (01:40→11:31)
--- NOTE | 2023-10-19 03:17 | PC.NURSE ---
VITAL SIGNS STABLE/AFEBRILE. REMAINS CONFUSED. MUTTERS TO HERSELF REPETITIVE WORDS. DIFFICULT TO UNDERSTAND PATIENT'S NEEDS. HAS HAD SEVERAL INCONTINENCE OF LOOSE STOOLS AND URINE. WEARS BRIEFS. REMAINS IN CONTACT/ENTERIC PRECAUTIONS FOR NOROVIRUS/CDIFF.
[2023-10-19 04:00] VITALS: BP 96/70; PULSE 86; PULSE 94; RESP 18; TEMP 36.6; O2SAT 99; BMI 16.8
[2023-10-19] MEDS: METRONIDAZ/SOD CHL 500 MG/100 ML PIGGYBACK 100 MG IV ×2 (04:19→12:27)
[2023-10-19 05:16] LABS: POC Glucose,Bedside 80 (70-110)
[2023-10-19] MEDS: CEFEPIME HCL 2 GM in 0.9 % SODIUM CHLORIDE 100 ML IV ×2 (05:33→16:20)
[2023-10-19 07:06] LABS: Basophils # 0.1 K/mm3 (0-0.2); Basophils % 0.5 % (0.1-2.0); Eosinophils # 0.1 K/mm3 (0.0-0.4); Eosinophils % 0.5 % (0.1-12.0); Hemoglobin 10.7 g/dL (12.2-16.2); Lymphocytes # 1.2 K/mm3 (0.7-4.5); Lymphocytes % 8.4 % (10-50); Mean Corpuscular HGB Conc 32.6 g/dL (31.8-35.4); Mean Corpuscular Hemoglobin 29.7 pg (27.0-31.2); Mean Corpuscular Volume 91.2 fl (81-99); Mean Platelet Volume 7.7 fl (7.4-10.4); Monocytes # 0.6 K/mm3 (0.1-1.0); Monocytes % 4.2 % (1.7-9.3); Neutrophils # 12.4 K/mm3 (1.8-7.8); Neutrophils % 86.5 % (37.0-80.0); Platelet Count 443 K/mm3 (142-424); Red Blood Count 3.62 M/mm3 (4.20-5.40); Red Cell Distribution Width 18.8 % (11.5-17.5); White Blood Count 14.3 K/mm3 (4.8-10.8)
[2023-10-19 07:13] LABS: Chloride 105 mmol/L (98-107); Sodium 133 mmol/L (136-145)
[2023-10-19 07:16] LABS: Blood Urea Nitrogen 2 mg/dl (7-17); Creatinine Clearance Estimated 37 mL/min (50-200); Estimated Glomerular Filt Rate 160 ml/min (>60); GFR (African American) 194 ML/MIN (>60)
[2023-10-19 07:17] LABS: Anion Gap 12.4 mEq/L (5-15); Calcium 7.4 mg/dl (8.4-10.2); Carbon Dioxide 18 mmol/L (22.0-30.0); Glucose 73 mg/dl (74-100); MANUAL DIFFERENTIAL MANUAL DIFFERENTIAL (MANUAL DIFF); Magnesium 1.1 mg/dl (1.6-2.3)
[2023-10-19 08:00] VITALS: BP 103/46; PULSE 85; PULSE 95; RESP 18; TEMP 36.4; O2SAT 99
--- NOTE | 2023-10-19 08:50 | EXP.PHA.CONS ---
Pharmacy Consult Date: 10/19/23 Time: 08:50 Referring provider: DR. MAYERS Reason for Consult:: VANCOMYCIN DOSING Allergies Allergy/AdvReac Type Severity Reaction Status Date / Time levofloxacin [From LEVAQUIN] Allergy Unknown SEIZURES Verified 10/15/23 11:08 Home Medications Medication Instructions Recorded Confirmed Type lidocaine 4 % topical patch 1 patch topical DAILYP PRN Back 08/16/23 10/16/23 History (Aspercreme (lidocaine)) Pain temazepam 15 mg capsule 15 mg PO HS Insomnia 30 days #30 09/03/23 10/16/23 Rx caps fluticasone fur. 100 mcg-umeclid 1 inh inhalation DAILY Breathing 10/16/23 10/16/23 History 62.5 mcg-vilant 25 mcg Problems inhalat.powder (Trelegy Ellipta) sevsem-dvnbwwns-ngaqaqb 1 cap PO AC 10/16/23 10/16/23 History 24,000-76,000-120,000 unit capsule,delayed rel (Creon) ondansetron HCl 4 mg tablet 4 mg PO Q8HP PRN nausea and 10/16/23 10/16/23 History vomiting pantoprazole 40 mg tablet,delayed 40 mg PO BID Acid Reflux 10/16/23 10/16/23 History release paroxetine HCl 20 mg tablet 40 mg PO DAILY Mood 10/16/23 10/16/23 History pregabalin 150 mg capsule 150 mg PO TID Pain 10/16/23 10/16/23 History sucralfate 1 gram tablet 1 g PO ACHS 10/16/23 10/16/23 History New Prescriptions to Start Prescriptions: Height: 1.57 m Weight: 41.504 kg Laboratory Results:: Laboratory Results - last 24 hr 10/15/23 19:28: Stl Aeromonas (PCR) Not detected, Stl C. cayetanensis PCR Not detected, Stool Rotavirus (PCR) Not detected, Stl Adenov F 40/41 PCR Not detected, Stool Astrovirus (PCR) Not detected, Stool Campylobacter PCR Not detected, Stl C.difficile Tox PCR Detected A, Stool Cryptosporidium PCR Not detected, Stl E.coli Shiga Tox PCR Not detected, Stool E coli O157 PCR TNP, Stl Enterotoxigenic E PCR Not detected, Stool EPEC (PCR) Not detected, Stool EAEC (PCR) Not detected, Stl E. histolytica PCR Not detected, Stool Giardia Lamblia PCR Not detected, Stool Salmonella PCR Not detected, Stool Sapovirus (PCR) Not detected, Stl P. shigelloides PCR Not detected, Stl Shigella/EIEC PCR Not detected, St Y.enterocolitica PCR Not detected, Stool Vibrio (PCR) Not detected, Stl Vibrio cholerae PCR Not detected, Stl Norovirus GI/GII PCR Detected A 10/18/23 07:30: Total Counted 100, Neutrophils % (Manual) 83 H, Lymphocytes % (Manual) 13, Monocytes % (Manual) 4, Platelet Estimate Normal, RBC Morphology Normal 10/18/23 09:18: Ammonia 11, TSH 3.89 10/18/23 10:09: POC Glucose 74 10/18/23 16:01: POC Glucose 84 10/18/23 20:24: POC Glucose 71 10/19/23 05:04: POC Glucose 80 10/19/23 06:36: WBC 14.3 H, RBC 3.62 L, Hgb 10.7 L, Hct 33.0 L, MCV 91.2, MCH 29.7, MCHC 32.6, RDW 18.8 H, Plt Count 443 H, MPV 7.7, Neut % (Auto) 86.5 H, Lymph % (Auto) 8.4 L, [place] % (Auto) 4.2, Eos % (Auto) 0.5, Baso % (Auto) 0.5, Neut # (Auto) 12.4 H, Lymph # (Auto) 1.2, [place] # (Auto) 0.6, Eos # (Auto) 0.1, Baso # (Auto) 0.1 Medical History: Medical History (Updated 10/16/23 @ 03:35 by Hernan Cerda APRN) Bradycardia Dyspnea Gastroesophageal reflux disease Hip fracture Assessment and Plan Assessment and plan all Dx Assessment and Plan for all problems:: Pharmacokinetic dosing service Objective: Patient: Floor: Age: 63 yo Serum creatinine: 1 mg/dL Height: 61.8 Inches Weight (kg): 41.5 Assessment: IBW (kg): 49.64 Dosing wt(kg): 41.5 Estimated Creatinine clearance (ml/min): 36.7 CRCL method: Cockcroft and Gault using ibw(default). Drug selected: Vancomycin Loading dose (mg): 0 Vd (liters): 33.2 (factor used: 0.8 L/kg) J Luis (hr-1): 0.035 Half life (hrs): 19.80 Recommended dose: 500 mg Interval: 18 hrs Infusion time (hrs): 2.0 Predicted peak (mcg/mL): 31.1 Predicted trough (mcg/mL): 17.76 Total body weight is being used for vancomycin dosing. Recommendations: Give Vancomycin 500 mg q 18 hrs with an expected Cpeak of 31.1 mcg/ml and an expected Ctrough of 17.76 mcg/ml ----Vanco only - ignore for aminoglycosides----- CLvanco= 1.16 L/hr AUC 0-24 /ANIA Data: ANIA 0.5 mcg/mL: AUC/ANIA: 1149.4 ANIA 1.0 mcg/mL: AUC/ANIA: 574.7 --------- ANIA 1.5 mcg/mL: AUC/ANIA: 383.1 ANIA 2.0 mcg/mL: AUC/ANIA: 287.4
[2023-10-19 09:12] LABS: Potassium 2.4 mmoL/L (3.5-5.1)
[2023-10-19 09:14] LABS: Lymphocytes % 10 % (10-50); Monocytes % 4 % (2-9); Neutrophils % 86 % (42-76); Platelet Estimate Normal; Total Cells Counted 100
[2023-10-19 09:15] LABS: Anisocytosis 1+; Hypochromasia 1+
[2023-10-19 09:47] LABS: Microscopic, Urine URINE MICROSCOPIC (MICROSCOPIC)
[2023-10-19 09:53] LABS: Appearance,Urine CLEAR (Clear); Bilirubin,Urine Negative (Negative); Blood, Urine Negative (Negative); Glucose,Urine (UA) Negative (Negative); Ketones,Urine 2+ (Negative); Leukocyte Esterase,Urine Negative (Negative); Nitrate,Urine Negative (Negative); Protein,Urine Negative (Negative); Specific Gravity, Urine 1.015 (1.005-1.030); Urobilinogen,Urine 0.2 EU/dl (0.2)
[2023-10-19 09:55] LABS: Color,Urine Straw (Yellow)
[2023-10-19] MEDS: ENOXAPARIN 40MG/0.4ML SYRINGE 40 MG SQ (09:55)
[2023-10-19 09:57] LABS: Alanine Aminotransferase 15 U/L (12-78); Albumin Level 2.6 g/dl (3.5-5.0); Albumin/Globulin Ratio 0.9 (1.1-1.8); Alkaline Phosphatase 114 U/L (38-126); Anion Gap 12.3 mEq/L (5-15); Aspartate Amino Transferase 35 U/L (14-36); Bilirubin,Total 0.6 mg/dl (0.2-1.3); Calcium 7.5 mg/dl (8.4-10.2); Carbon Dioxide 21 mmol/L (22.0-30.0); Chloride 104 mmol/L (98-107); Creatinine Clearance Estimated 37 mL/min (50-200); Estimated Glomerular Filt Rate 160 ml/min (>60); GFR (African American) 194 ML/MIN (>60); Globulin 2.9 g/dL (1.3-3.2); Glucose 74 mg/dl (74-100); Sodium 135 mmol/L (136-145); Total Protein,Serum 5.5 g/dl (6.3-8.2)
[2023-10-19 10:00] LABS: Blood Urea Nitrogen < 2 mg/dl (7-17)
[2023-10-19] MEDS: KCl 10mEq/100ml 100 ML 100 MEQ IV ×3 (10:00→12:21)
[2023-10-19 10:01] LABS: Potassium 2.3 mmoL/L (3.5-5.1)
[2023-10-19] MEDS: ACYCLOVIR SODIUM IV ×2 (10:14→16:32)
[2023-10-19] MEDS: SODIUM CHLORIDE 0.9% IV ×2 (10:14→16:32)
[2023-10-19] MEDS: VANCOMYCIN HCL 500 MG in 0.9 % SODIUM CHLORIDE 250 ML 125 MG IV (10:22)
[2023-10-19 10:25] LABS: Bacteria,Urine Trace /lpf; RBC,Urine Occasional #/hpf (0-3)
--- NOTE | 2023-10-19 10:32 | EXP.DC.SUM ---
General Admission date:: 10/15/23 Discharge date: 10/19/23 HPI HPI HPI: This is a 63-year-old female PMHx of CVA no residual, Aortic valve replacement, no on any anticoagulant, pancreatic stent, smoker, presented today with generalized weakness, abdominal pain, diarrhea. States she has had diarrhea for 2 months and has been dealing with chronic pancreatitis etiology unknown. Nobody is done any stool studies on her that she is aware of. No fevers. States she has been weak for the last 24 hours had some basic blood work done by her primary care doctor and told to come to the emergency department due to an elevated white blood cell count. Patient denies any respiratory symptoms denies any symptoms anywhere outside of her abdomen. Denies any urinary symptoms specifically and no blood in her stool. Admitted for further treatment and management. Hospital Course Hospital Course Hospital Course: Patient is a 63-year-old female with past medical history of CVA without residual deficits, aortic valve replacement, chronic pancreatitis smoking who presents to the hospital due to generalized abdominal pain and diarrhea. stool sample results came back positive for C diff and Norovirus, during hospitalization patient speech started becoming abnormal and patient became confused. Patient continnued to be on cefepime and PO vancomycin. will add Acyclovir today and IV vancomyin for encephalitis coverage. Patient case was discussed with neurology at [facility] which recommended LP, but staff anesthesia was not available. Assessment and plan Sepsis present on admission, likely source colitis Suspect bacterial colitis Hypokalemia - recurring , replace K today, need to be monitored at next facility Hypotension Hyponatremia Acute encephalopthy - Patient positive for C diff and Noro virus, can not rule out viral encephalitis - continue PO vancomycin - MRI non conclusive, CT head unremarkable cefepime and Flagyl, IV vancomycin and IV acyclovir Continue IV fluids for maintenance Replace and monitor electrolytes Hold nephrotoxic medications Generalized weakness -Consult PT/OT Likely due to electrolyte deficiency, monitor and replace electrolytes Acute kidney injury -Resolved DVT prophylaxis-Lovenox Exam Data for Last 24 hours Vital signs and Labs for Last 24 Hours: Temp Pulse Resp BP Pulse Ox O2 Del Method O2 Flow Rate 97.6 F 95 H 18 103/46 L 99 Room Air 1 10/19/23 08:00 10/19/23 08:00 10/19/23 08:00 10/19/23 08:00 10/19/23 08:00 10/19/23 08:00 10/15/23 21:00 Laboratory Results - last 24 hr 10/15/23 19:28: Stl Aeromonas (PCR) Not detected, Stl C. cayetanensis PCR Not detected, Stool Rotavirus (PCR) Not detected, Stl Adenov F 40/41 PCR Not detected, Stool Astrovirus (PCR) Not detected, Stool Campylobacter PCR Not detected, Stl C.difficile Tox PCR Detected A, Stool Cryptosporidium PCR Not detected, Stl E.coli Shiga Tox PCR Not detected, Stool E coli O157 PCR TNP, Stl Enterotoxigenic E PCR Not detected, Stool EPEC (PCR) Not detected, Stool EAEC (PCR) Not detected, Stl E. histolytica PCR Not detected, Stool Giardia Lamblia PCR Not detected, Stool Salmonella PCR Not detected, Stool Sapovirus (PCR) Not detected, Stl P. shigelloides PCR Not detected, Stl Shigella/EIEC PCR Not detected, St Y.enterocolitica PCR Not detected, Stool Vibrio (PCR) Not detected, Stl Vibrio cholerae PCR Not detected, Stl Norovirus GI/GII PCR Detected A 10/18/23 16:01: POC Glucose 84 10/18/23 20:24: POC Glucose 71 10/19/23 05:04: POC Glucose 80 10/19/23 06:36: WBC 14.3 H, RBC 3.62 L, Hgb 10.7 L, Hct 33.0 L, MCV 91.2, MCH 29.7, MCHC 32.6, RDW 18.8 H, Plt Count 443 H, MPV 7.7, Neut % (Auto) 86.5 H, Lymph % (Auto) 8.4 L, [place] % (Auto) 4.2, Eos % (Auto) 0.5, Baso % (Auto) 0.5, Neut # (Auto) 12.4 H, Lymph # (Auto) 1.2, [place] # (Auto) 0.6, Eos # (Auto) 0.1, Baso # (Auto) 0.1, Total Counted 100, Neutrophils % (Manual) 86 H, Lymphocytes % (Manual) 10, Monocytes % (Manual) 4, Platelet Estimate Normal, Hypochromasia 1+, Anisocytosis 1+, Sodium 133 L, Potassium 2.4 L*, Chloride 105, Carbon Dioxide 18 L, Anion Gap 12.4, BUN 2 L D, Creatinine 0.40 L, Estimated Creat Clear 37, Estimated GFR 160, Est GFR ( Amer) 194 D, Glucose 73 L, Calcium 7.4 L, Magnesium 1.1 L 10/19/23 08:16: Urine Color Straw, Urine Appearance Clear, Urine pH 6.0, Ur Specific [place] 1.015, Urine Protein Negative, Urine Glucose (UA) Negative, Urine Ketones 2+, Urine Blood Negative, Urine Nitrate Negative, Urine Bilirubin Negative, Urine Urobilinogen 0.2, Ur Leukocyte Esterase Negative, Urine RBC Occasional, Urine WBC 3-5, Ur Squamous Epith Cells 5-10, Urine Bacteria Trace 10/19/23 09:18: Sodium 135 L, Potassium 2.3 L*, Chloride 104, Carbon Dioxide 21 L, Anion Gap 12.3, BUN < 2 L, Creatinine 0.40 L, Estimated Creat Clear 37, Estimated GFR 160, Est GFR ( Amer) 194, Glucose 74, Calcium 7.5 L, Total Bilirubin 0.6, AST 35, ALT 15, Alkaline Phosphatase 114, Total Protein 5.5 L, Albumin 2.6 L, Globulin 2.9, Albumin/Globulin Ratio 0.9 L I & O for Last 24 hours: Intake & Output 10/16/23 10/17/23 10/18/23 10/19/23 23:59 23:59 23:59 23:59 Intake Total 3420 / 3420 1862 / 1862 1020 / 2370 1550 / 1550 Output Total 1700 / 1700 0 / 0 / 2 / Balance 1720 / 1720 1862 / 1862 1019 / 2369 1548 / 1548 Weight 43.6 kg 47.8 kg 47.9 kg 41.504 kg Constitutional Constitutional: no acute distress Comments: appears confused, not following commands, She does not seem to be comprehending *Routine HEENT Exam Head: Present normocephalic Eye: Present EOMI and PERRL ENT: Present mucous membranes moist *Routine Neck Exam Neck: Present supple; Absent lymphadenopathy *Routine Respiratory Exam Respiratory: Present CTA bilaterally *Routine Cardiovascular Exam Cardiovascular: Present RRR *Routine Abdominal Exam Abdominal: Present soft and normoactive bowel sounds; Absent tenderness *Routine Extremities Exam Extremities: Absent cyanosis, clubbing or edema *Routine Skin Exam Skin: Present warm; Absent rash *Routine Neurological Exam Neurological: Present alert and oriented X3 Comments: abnormal non purposeful movement Results Data Completed and Pending Labs on day of discharge: Labs from last 24 hours 10/19/23 10/19/23 10/19/23 09:18 08:16 06:36 WBC 14.3 H RBC 3.62 L Hgb 10.7 L Hct 33.0 L MCV 91.2 MCH 29.7 MCHC 32.6 RDW 18.8 H Plt Count 443 H MPV 7.7 Neut % (Auto) 86.5 H Lymph % (Auto) 8.4 L [place] % (Auto) 4.2 Eos % (Auto) 0.5 Baso % (Auto) 0.5 Neut # (Auto) 12.4 H Lymph # (Auto) 1.2 [place] # (Auto) 0.6 Eos # (Auto) 0.1 Baso # (Auto) 0.1 Total Counted 100 Neutrophils % (Manual) 86 H Lymphocytes % (Manual) 10 Monocytes % (Manual) 4 Platelet Estimate Normal Hypochromasia 1+ Anisocytosis 1+ Sodium 135 L 133 L Potassium 2.3 L* 2.4 L* Chloride 104 105 Carbon Dioxide 21 L 18 L Anion Gap 12.3 12.4 BUN < 2 L 2 L D Creatinine 0.40 L 0.40 L Estimated Creat Clear 37 37 Estimated GFR 160 160 Est GFR ( Amer) 194 194 D Glucose 74 73 L POC Glucose Calcium 7.5 L 7.4 L Magnesium 1.1 L Total Bilirubin 0.6 AST 35 ALT 15 Alkaline Phosphatase 114 Total Protein 5.5 L Albumin 2.6 L Globulin 2.9 Albumin/Globulin Ratio 0.9 L Urine Color Straw Urine Appearance Clear Urine pH 6.0 Ur Specific [place] 1.015 Urine Protein Negative Urine Glucose (UA) Negative Urine Ketones 2+ Urine Blood Negative Urine Nitrate Negative Urine Bilirubin Negative Urine Urobilinogen 0.2 Ur Leukocyte Esterase Negative Urine RBC Occasional Urine WBC 3-5 Ur Squamous Epith Cells 5-10 Urine Bacteria Trace Stl Aeromonas (PCR) Stl C. cayetanensis PCR Stool Rotavirus (PCR) Stl Adenov F 40/41 PCR Stool Astrovirus (PCR) Stool Campylobacter PCR Stl C.difficile Tox PCR Stool Cryptosporidium PCR Stl E.coli Shiga Tox PCR Stool E coli O157 PCR Stl Enterotoxigenic E PCR Stool EPEC (PCR) Stool EAEC (PCR) Stl E. histolytica PCR Stool Giardia Lamblia PCR Stool Salmonella PCR Stool Sapovirus (PCR) Stl P. shigelloides PCR Stl Shigella/EIEC PCR St Y.enterocolitica PCR Stool Vibrio (PCR) Stl Vibrio cholerae PCR Stl Norovirus GI/GII PCR 10/19/23 10/18/23 10/18/23 05:04 20:24 16:01 WBC RBC Hgb Hct MCV MCH MCHC RDW Plt Count MPV Neut % (Auto) Lymph % (Auto) [place] % (Auto) Eos % (Auto) Baso % (Auto) Neut # (Auto) Lymph # (Auto) [place] # (Auto) Eos # (Auto) Baso # (Auto) Total Counted Neutrophils % (Manual) Lymphocytes % (Manual) Monocytes % (Manual) Platelet Estimate Hypochromasia Anisocytosis Sodium Potassium Chloride Carbon Dioxide Anion Gap BUN Creatinine Estimated Creat Clear Estimated GFR Est GFR ( Amer) Glucose POC Glucose 80 71 84 Calcium Magnesium Total Bilirubin AST ALT Alkaline Phosphatase Total Protein Albumin Globulin Albumin/Globulin Ratio Urine Color Urine Appearance Urine pH Ur Specific [place] Urine Protein Urine Glucose (UA) Urine Ketones Urine Blood Urine Nitrate Urine Bilirubin Urine Urobilinogen Ur Leukocyte Esterase Urine RBC Urine WBC Ur Squamous Epith Cells Urine Bacteria Stl Aeromonas (PCR) Stl C. cayetanensis PCR Stool Rotavirus (PCR) Stl Adenov F 40/41 PCR Stool Astrovirus (PCR) Stool Campylobacter PCR Stl C.difficile Tox PCR Stool Cryptosporidium PCR Stl E.coli Shiga Tox PCR Stool E coli O157 PCR Stl Enterotoxigenic E PCR Stool EPEC (PCR) Stool EAEC (PCR) Stl E. histolytica PCR Stool Giardia Lamblia PCR Stool Salmonella PCR Stool Sapovirus (PCR) Stl P. shigelloides PCR Stl Shigella/EIEC PCR St Y.enterocolitica PCR Stool Vibrio (PCR) Stl Vibrio cholerae PCR Stl Norovirus GI/GII PCR 10/15/23 19:28 WBC RBC Hgb Hct MCV MCH MCHC RDW Plt Count MPV Neut % (Auto) Lymph % (Auto) [place] % (Auto) Eos % (Auto) Baso % (Auto) Neut # (Auto) Lymph # (Auto) [place] # (Auto) Eos # (Auto) Baso # (Auto) Total Counted Neutrophils % (Manual) Lymphocytes % (Manual) Monocytes % (Manual) Platelet Estimate Hypochromasia Anisocytosis Sodium Potassium Chloride Carbon Dioxide Anion Gap BUN Creatinine Estimated Creat Clear Estimated GFR Est GFR ( Amer) Glucose POC Glucose Calcium Magnesium Total Bilirubin AST ALT Alkaline Phosphatase Total Protein Albumin Globulin Albumin/Globulin Ratio Urine Color Urine Appearance Urine pH Ur Specific [place] Urine Protein Urine Glucose (UA) Urine Ketones Urine Blood Urine Nitrate Urine Bilirubin Urine Urobilinogen Ur Leukocyte Esterase Urine RBC Urine WBC Ur Squamous Epith Cells Urine Bacteria Stl Aeromonas (PCR) Not detected Stl C. cayetanensis PCR Not detected Stool Rotavirus (PCR) Not detected Stl Adenov F 40/41 PCR Not detected Stool Astrovirus (PCR) Not detected Stool Campylobacter PCR Not detected Stl C.difficile Tox PCR Detected A Stool Cryptosporidium PCR Not detected Stl E.coli Shiga Tox PCR Not detected Stool E coli O157 PCR TNP Stl Enterotoxigenic E PCR Not detected Stool EPEC (PCR) Not detected Stool EAEC (PCR) Not detected Stl E. histolytica PCR Not detected Stool Giardia Lamblia PCR Not detected Stool Salmonella PCR Not detected Stool Sapovirus (PCR) Not detected Stl P. shigelloides PCR Not detected Stl Shigella/EIEC PCR Not detected St Y.enterocolitica PCR Not detected Stool Vibrio (PCR) Not detected Stl Vibrio cholerae PCR Not detected Stl Norovirus GI/GII PCR Detected A DS: Diagnosis Discharge Diagnosis (1) Sepsis: Status: Acute Code(s): A41.9 - Sepsis, unspecified organism Qualifiers: Sepsis acute organ dysfunction status: without acute organ dysfunction Sepsis type: sepsis due to unspecified organism Qualified Code(s): A41.9 - Sepsis, unspecified organism (2) Pancolitis: Status: Acute Code(s): K51.00 - Ulcerative (chronic) pancolitis without complications (3) Chronic diarrhea: Status: Acute Code(s): K52.9 - Noninfective gastroenteritis and colitis, unspecified (4) Hypokalemia: Status: Acute Code(s): E87.6 - Hypokalemia (5) Abdominal pain, lower: Status: Acute Code(s): R10.30 - Lower abdominal pain, unspecified (6) Pancreatic duct stones: Status: Acute Code(s): K86.89 - Other specified diseases of pancreas (7) Generalized weakness: Status: Acute Code(s): R53.1 - Weakness Meds Home Medications and Allergies Home Medications Medication Instructions Recorded Confirmed Type lidocaine 4 % topical patch 1 patch topical DAILYP PRN Back 08/16/23 10/16/23 History (Aspercreme (lidocaine)) Pain temazepam 15 mg capsule 15 mg PO HS Insomnia 30 days #30 09/03/23 10/16/23 Rx caps fluticasone fur. 100 mcg-umeclid 1 inh inhalation DAILY Breathing 10/16/23 10/16/23 History 62.5 mcg-vilant 25 mcg Problems inhalat.powder (Trelegy Ellipta) [id number] 1 cap PO AC 10/16/23 10/16/23 History 24,000-76,000-120,000 unit capsule,delayed rel (Creon) ondansetron HCl 4 mg tablet 4 mg PO Q8HP PRN nausea and 10/16/23 10/16/23 History vomiting pantoprazole 40 mg tablet,delayed 40 mg PO BID Acid Reflux 10/16/23 10/16/23 History release paroxetine HCl 20 mg tablet 40 mg PO DAILY Mood 10/16/23 10/16/23 History pregabalin 150 mg capsule 150 mg PO TID Pain 10/16/23 10/16/23 History sucralfate 1 gram tablet 1 g PO ACHS 10/16/23 10/16/23 History Vancomycin HCl [Vancomycin 500mg 125 mls/hr IV Q18H 10/19/23 Rx vial] 500 mg New Prescriptions to Start Prescriptions: Vancomycin HCl [Vancomycin 500mg vial] 500 mg 0.9 % Sodium Chloride [Sod Chlor 0.9% 250mL Bag] 250 ml 125 mls/hr IV Q18H Allergies Allergy/AdvReac Type Severity Reaction Status Date / Time levofloxacin [From LEVAQUIN] Allergy Unknown SEIZURES Verified 10/15/23 11:08 Discharge Plan Disposition Patient Disposition: Xfer Other Condition: Fair Discharge Order Discharge Orders: Discharge Order (Routine); Ordered 10/19/23 Ordered By: Junior Lange Follow up Plan Follow up with: Betty Antonio APRN [Primary Care Provider] - 1 week Prescriptions/Medication Reconciliation: New Vancomycin HCl [Vancomycin 500mg vial] 500 MG 0.9 % Sodium Chloride [Sod Chlor 0.9% 250mL Bag] 250 ML 125 mls/hr IV Q18H Ordered By: Junior Lange MD Last Taken: 10/19/23 10:22 125 mls/hr Continued lidocaine [Aspercreme (lidocaine)] 4 % adhesive patch,medicated 1 patch topical DAILYP PRN (Reason: Back Pain) temazepam 15 mg capsule 15 mg PO HS 30 Days Qty: 30 2RF sucralfate 1 gram tablet 1 g PO ACHS Patient Comments: TAKE 1 TABLET BY MOUTH 4 TIMES DAILY (BEFORE MEALS AND NIGHTLY) TAKE WITH 8 OZ OF WATER. SEPARATE FROM OTHER MEDS BY 2 HOURS paroxetine HCl 20 mg tablet 40 mg PO DAILY Patient Comments: TAKE 2 TABLETS BY MOUTH ONCE DAILY FOR DEPRESSION ondansetron HCl 4 mg tablet 4 mg PO Q8HP PRN (Reason: nausea and vomiting) pantoprazole 40 mg tablet,delayed release (DR/EC) 40 mg PO BID pregabalin 150 mg capsule 150 mg PO TID Creon 24,000-76,000 -120,000 unit capsule,delayed release(DR/EC) 1 cap PO AC Trelegy Ellipta 100-62.5-25 mcg blister with device 1 inh inhalation DAILY Problem Reconciliation Problems Reviewed?: Yes Patient Discharge Instructions ACTIVITY: Bed rest DIET: continue same diet Patient Instructions: DI for Sepsis -- Adult, DI for Colitis, Clostridium difficile Infection Providers Primary Care Provider: Betty Antonio Admit Provider: Bryan Kitchen Attending Provider: Bryan Kitchen
--- NOTE | 2023-10-19 10:41 | P.PN_ITS ---
Subjective *Date: 10/19/23 *Time: 10:41 Medical Exam Vital signs and Labs for Last 24 Hours: Vital Signs Temp Pulse Pulse Resp BP Pulse Ox O2 Del Method 10/19/23 08:00 97.6 F 95 H 18 103/46 L 99 Room Air 10/19/23 06:31 Room Air 10/19/23 04:00 97.9 F 86 18 96/70 L 99 Room Air 10/19/23 04:50 Room Air 10/19/23 04:00 94 H 10/19/23 03:00 Room Air 10/19/23 01:00 Room Air 10/19/23 00:00 91 H 10/19/23 00:00 97.9 F 90 16 112/67 98 Room Air 10/18/23 23:00 Room Air 10/18/23 21:00 Room Air 10/18/23 20:00 100 Room Air 10/18/23 20:00 86 10/18/23 20:00 98.0 F 87 16 111/64 100 Room Air 10/18/23 16:00 97.8 F 91 H 16 100/57 L 100 Room Air 10/18/23 17:18 Room Air 10/18/23 16:00 100 H 10/18/23 16:50 Room Air 10/18/23 14:18 Room Air Intake and Output 10/18/23 10/19/23 10/19/23 23:59 07:59 15:59 Intake Total 120 / 2370 1550 / 1550 Output Total 2 / 2 Balance 119 / 2369 1548 / 1548 Intake: Intake, Oral Amount 120 / 120 Intake, Total IV Amount 1550 / 1550 Cefepime HCl 2 gm In 0.9 % 200 / 200 Sodium Chloride 100 ml @ 200 mls/hr IV Q8H [facility] Rx#:[id number] KCl 20mEq/100ml 100 ml @ 50 mls 1150 / 1150 /hr IV Q2H ENIO Rx#:[id number] Metronidaz/Sod Chl 500 mg In 200 / 200 100 ml @ 100 mls/hr IV Q8H ENIO Rx#:[id number] Output: Output, Urine Amount / 2 / 2 Other: Number of Unmeasured Voids 1 1 1 Number of Bowel Movements 1 1 Weight 41.504 kg 41.504 kg Patient Weight 10/19/23 23:59 Weight 41.504 kg Laboratory Results - last 24 hr 10/15/23 19:28: Stl Aeromonas (PCR) Not detected, Stl C. cayetanensis PCR Not detected, Stool Rotavirus (PCR) Not detected, Stl Adenov F 40/41 PCR Not detected, Stool Astrovirus (PCR) Not detected, Stool Campylobacter PCR Not detected, Stl C.difficile Tox PCR Detected A, Stool Cryptosporidium PCR Not detected, Stl E.coli Shiga Tox PCR Not detected, Stool E coli O157 PCR TNP, Stl Enterotoxigenic E PCR Not detected, Stool EPEC (PCR) Not detected, Stool EAEC (PCR) Not detected, Stl E. histolytica PCR Not detected, Stool Giardia Lamblia PCR Not detected, Stool Salmonella PCR Not detected, Stool Sapovirus (PCR) Not detected, Stl P. shigelloides PCR Not detected, Stl Shigella/EIEC PCR Not detected, St Y.enterocolitica PCR Not detected, Stool Vibrio (PCR) Not detected, Stl Vibrio cholerae PCR Not detected, Stl Norovirus GI/GII PCR Detected A 10/18/23 16:01: POC Glucose 84 10/18/23 20:24: POC Glucose 71 10/19/23 05:04: POC Glucose 80 10/19/23 06:36: WBC 14.3 H, RBC 3.62 L, Hgb 10.7 L, Hct 33.0 L, MCV 91.2, MCH 29.7, MCHC 32.6, RDW 18.8 H, Plt Count 443 H, MPV 7.7, Neut % (Auto) 86.5 H, Lymph % (Auto) 8.4 L, [place] % (Auto) 4.2, Eos % (Auto) 0.5, Baso % (Auto) 0.5, Neut # (Auto) 12.4 H, Lymph # (Auto) 1.2, [place] # (Auto) 0.6, Eos # (Auto) 0.1, Baso # (Auto) 0.1, Total Counted 100, Neutrophils % (Manual) 86 H, Lymphocytes % (Manual) 10, Monocytes % (Manual) 4, Platelet Estimate Normal, Hypochromasia 1+, Anisocytosis 1+, Sodium 133 L, Potassium 2.4 L*, Chloride 105, Carbon Dioxide 18 L, Anion Gap 12.4, BUN 2 L D, Creatinine 0.40 L, Estimated Creat Clear 37, Estimated GFR 160, Est GFR ( Amer) 194 D, Glucose 73 L, Calcium 7.4 L, Magnesium 1.1 L 10/19/23 08:16: Urine Color Straw, Urine Appearance Clear, Urine pH 6.0, Ur Specific [place] 1.015, Urine Protein Negative, Urine Glucose (UA) Negative, Urine Ketones 2+, Urine Blood Negative, Urine Nitrate Negative, Urine Bilirubin Negative, Urine Urobilinogen 0.2, Ur Leukocyte Esterase Negative, Urine RBC Occasional, Urine WBC 3-5, Ur Squamous Epith Cells 5-10, Urine Bacteria Trace 10/19/23 09:18: Sodium 135 L, Potassium 2.3 L*, Chloride 104, Carbon Dioxide 21 L, Anion Gap 12.3, BUN < 2 L, Creatinine 0.40 L, Estimated Creat Clear 37, Estimated GFR 160, Est GFR ( Amer) 194, Glucose 74, Calcium 7.5 L, Total Bilirubin 0.6, AST 35, ALT 15, Alkaline Phosphatase 114, Total Protein 5.5 L, Albumin 2.6 L, Globulin 2.9, Albumin/Globulin Ratio 0.9 L I & O for Labs for Last 24 Hours: Intake & Output 10/16/23 10/17/23 10/18/23 10/19/23 23:59 23:59 23:59 23:59 Intake Total 3420 / 3420 1862 / 1862 1020 / 2370 1550 / 1550 Output Total 1700 / 1700 0 / 0 1 / 1 2 / 2 Balance 1720 / 1720 1862 / 186 1019 / 2369 1548 / 1548 Weight 43.6 kg 47.8 kg 47.9 kg 41.504 kg The patient's infection will respond to the chosen ABx?: Yes Is the patient receiving the right drug, dose, and route?: Yes Could a more targeted ABx be ordered?: No (AFEBRILE, WBC DECREASED FROM 39.3K TO 14.3K, BLD CX PENDING.)
[2023-10-19 11:02] LABS: POC Glucose,Bedside 61 (70-110)
[2023-10-19 11:13] VITALS: BP 116/74; PULSE 85; RESP 18; TEMP 36.7; O2SAT 100
[2023-10-19 12:00] VITALS: PULSE 85
[2023-10-19 16:00] VITALS: PULSE 90
--- NOTE | 2023-10-19 17:18 | PC.NURSE ---
THIS MORNING DURING ASSESSMENT PT WAS OBVIOUSLY CONFUSED. WAS UNABLE TO ANSWER YES OR NO QUESTIONS. PT WAS DOING SOME OCCASIONAL TWITCHING OF THE HEAD. WHEN PT WAS ASKED HER NAME SHE STATED (YES, YES, YES). NOTIFIED TO COME ASSESS PT AND HE STATED PT WOULD REQUIRE TRANSFER TO SEE NEUROLOGY. NOTIFIED [facility] AND THEY REQUESTED A LUMBAR PUNCTURE WHILE WAITING FOR BED ASSIGNMENT. ANESTHESIA WAS NOTIFIED AND HE STATED HE WOULD BE HERE IN A COUPLE OF HOURS. CALLED BACK WITH A BED ASSIGNMENT THIS MORNING AT 0953. LUMBAR PUNCTURE WAS CANCELLED PER AND REPORT WAS CALLED TO [facility]. AMBULANCE NOTIFIED. PT WAITED SEVERAL HOURS FOR TRANSFER. PT LEFT FACILITY AT 1720.
== END 2023-10-19 17:20 | disposition short-term general hospital (02) | DRG 872 ==
LOC: ER 15:42 → 2ND 19:52
PROVIDERS: Internal Medicine; Admitting Provider Internal Medicine Adolescent Medicine; Emergency Provider Student in an Organized Health Care Education/Training Program; PCP Nurse Practitioner Family; Visit Provider Internal Medicine Adolescent Medicine
DX: A41.9 Sepsis, unspecified organism (principal); K51.00 Ulcerative (chronic) pancolitis without complications; E87.1 Hypo-osmolality and hyponatremia; N17.9 Acute kidney failure, unspecified; K52.9 Noninfective gastroenteritis and colitis, unspecified; E87.6 Hypokalemia; K86.89 Other specified diseases of pancreas; F17.200 Nicotine dependence, unspecified, uncomplicated; K21.9 Gastro-esophageal reflux disease without esophagitis; Z95.2 Presence of prosthetic heart valve; R65.20 Severe sepsis without septic shock
CPT/HCPCS: 36415; 70450; 70551; 71045; 74019; 74177; 80048; 80053; 81001; 82140; 82150; 82962; 83605; 83690; 83735; 84100; 84443; 85007; 85025; 85651; 86140; 87040; 87507; 92507; 92523; 97110; 97163; 97166; 97530; 97535; 99291; J0696; J2405; J3370; Q9967

== ENCOUNTER 2023-11-11 15:02 | Outpatient (CLI) | payer MEDICARE, SELFPAY ==
[2023-11-11 14:53] LABS: Basophils # 0.1 K/mm3 (0-0.2); Basophils % 0.5 % (0.1-2.0); Eosinophils # 0.1 K/mm3 (0.0-0.4); Eosinophils % 0.8 % (0.1-12.0); Hematocrit 35.4 % (37.0-47.0); Hemoglobin 10.7 g/dL (12.2-16.2); Lymphocytes # 2.5 K/mm3 (0.7-4.5); Lymphocytes % 16.1 % (10-50); Mean Corpuscular HGB Conc 30.3 g/dL (31.8-35.4); Mean Corpuscular Volume 99.1 fl (81-99); Mean Platelet Volume 9.5 fl (7.4-10.4); Monocytes # 0.3 K/mm3 (0.1-1.0); Monocytes % 2.2 % (1.7-9.3); Neutrophils # 12.2 K/mm3 (1.8-7.8); Neutrophils % 80.4 % (37.0-80.0); Platelet Count 487 K/mm3 (142-424); Red Blood Count 3.57 M/mm3 (4.20-5.40); Red Cell Distribution Width 18.1 % (11.5-17.5); White Blood Count 15.1 K/mm3 (4.8-10.8)
[2023-11-11 14:56] LABS: MANUAL DIFFERENTIAL MANUAL DIFFERENTIAL (MANUAL DIFF)
[2023-11-11 15:10] LABS: Lymphocytes % 18 % (10-50); Macrocytosis 1+; Monocytes % 3 % (2-9); Neutrophils % 79 % (42-76); Target Cells 1+; Total Cells Counted 100
[2023-11-11 15:11] LABS: Hypochromasia 1+; Platelet Estimate Slight Increase
[2023-11-11 15:17] LABS: Alanine Aminotransferase 16 U/L (12-78); Albumin Level 2.7 g/dl (3.5-5.0); Alkaline Phosphatase 202 U/L (38-126); Anion Gap 12.4 mEq/L (5-15); Aspartate Amino Transferase 26 U/L (14-36); Bilirubin,Total 0.2 mg/dl (0.2-1.3); Blood Urea Nitrogen 16 mg/dl (7-17); Calcium 8.1 mg/dl (8.4-10.2); Carbon Dioxide 21 mmol/L (22.0-30.0); Chloride 115 mmol/L (98-107); Estimated Glomerular Filt Rate 100 ml/min (>60); GFR (African American) 121 ML/MIN (>60); Globulin 2.8 g/dL (1.3-3.2); Glucose 75 mg/dl (74-100); Potassium 4.4 mmoL/L (3.5-5.1); Sodium 144 mmol/L (136-145); Total Protein,Serum 5.5 g/dl (6.3-8.2)
== END 2023-11-11 23:59 ==
LOC: LAB.DROPOF 15:02
PROVIDERS: PCP Nurse Practitioner Family; Visit Provider Nurse Practitioner Family
DX: A04.72 Enterocolitis due to Clostridium difficile, not specified as recurrent (principal); J02.9 Acute pharyngitis, unspecified
CPT/HCPCS: 80053; 85007; 85025; 87070

== ENCOUNTER 2023-12-16 13:07 | Outpatient (CLI) | payer MEDICARE, SELFPAY ==
[2023-12-16 14:04] LABS: Basophils % 0.5 % (0.1-2.0); Eosinophils # 0.2 K/mm3 (0.0-0.4); Eosinophils % 2.6 % (0.1-12.0); Lymphocytes # 2.1 K/mm3 (0.7-4.5); Mean Corpuscular HGB Conc 29.9 g/dL (31.8-35.4); Mean Corpuscular Hemoglobin 28.1 pg (27.0-31.2); Mean Platelet Volume 8.6 fl (7.4-10.4); Monocytes # 0.5 K/mm3 (0.1-1.0); Monocytes % 5.7 % (1.7-9.3); Neutrophils # 5.3 K/mm3 (1.8-7.8); Neutrophils % 65.2 % (37.0-80.0); Platelet Count 537 K/mm3 (142-424); Red Blood Count 3.19 M/mm3 (4.20-5.40); Red Cell Distribution Width 18.2 % (11.5-17.5); White Blood Count 8.1 K/mm3 (4.8-10.8)
[2023-12-16 14:44] LABS: Chloride 111 mmol/L (98-107); Potassium 4.1 mmoL/L (3.5-5.1); Sodium 141 mmol/L (136-145)
[2023-12-16 14:46] LABS: Amylase 40 U/L (30-110)
[2023-12-16 14:47] LABS: Alanine Aminotransferase 11 U/L (12-78); Albumin Level 2.6 g/dl (3.5-5.0); Alkaline Phosphatase 149 U/L (38-126); Anion Gap 9.1 mEq/L (5-15); Aspartate Amino Transferase 21 U/L (14-36); Bilirubin,Total 0.3 mg/dl (0.2-1.3); Blood Urea Nitrogen 14 mg/dl (7-17); Calcium 8.6 mg/dl (8.4-10.2); Carbon Dioxide 25 mmol/L (22.0-30.0); Estimated Glomerular Filt Rate 124 ml/min (>60); GFR (African American) 150 ML/MIN (>60); Globulin 2.5 g/dL (1.3-3.2); Glucose 105 mg/dl (74-100); Lipase 91 U/L (23-300); Magnesium 1.3 mg/dl (1.6-2.3); Total Protein,Serum 5.1 g/dl (6.3-8.2)
[2023-12-16 15:03] LABS: Erythrocyte Sedimentation Rate 126 mm/hr (0-30)
[2023-12-16 15:16] LABS: Uric Acid 4.4 mg/dl (2.5-6.2)
[2023-12-16 17:24] LABS: Microscopic, Urine URINE MICROSCOPIC (MICROSCOPIC)
[2023-12-16 18:23] LABS: Appearance,Urine CLEAR (Clear); Blood, Urine TRACE-I (Negative); Color,Urine YELLOW (Yellow); Glucose,Urine (UA) Negative (Negative); Ketones,Urine TRACE (Negative); Leukocyte Esterase,Urine 2+ (Negative); Nitrate,Urine Negative (Negative); Protein,Urine TRACE (Negative); Specific Gravity, Urine 1.025 (1.005-1.030)
[2023-12-16 18:25] LABS: Bilirubin,Urine 1+ (Negative)
[2023-12-16 19:02] LABS: Bacteria,Urine Trace /lpf; Calcium Oxalate Crystals,Urine Trace /lpf; RBC,Urine Occasional #/hpf (0-3); Squamous Epithelial Cell,Urine Occasional #/hpf (0-5); WBC,Urine TNTC #/hpf (0-3)
[2023-12-17 09:04] LABS: RA Latex Turbid. 12.7 IU/mL (<14.0)
[2023-12-20 08:31] LABS: Antinuclear Antibodies, IFA Positive
== END 2023-12-16 23:59 | disposition home or self-care (01) ==
PROVIDERS: PCP Nurse Practitioner Family; Visit Provider Nurse Practitioner Family
DX: R30.0 Dysuria (principal); R32 Unspecified urinary incontinence; K86.89 Other specified diseases of pancreas; E83.42 Hypomagnesemia; R53.1 Weakness; M25.50 Pain in unspecified joint; B96.1 Klebsiella pneumoniae [K. pneumoniae] as the cause of diseases classified elsewhere
CPT/HCPCS: 36415; 80053; 81001; 82150; 83690; 83735; 84550; 85025; 85651; 86038; 86431; 87086

== ENCOUNTER 2023-12-17 14:01 | Outpatient (CLI) | payer MEDICARE, SELFPAY | END 2023-12-17 23:59 | LOC: LAB.DROPOF 14:02 | PROVIDERS: PCP Nurse Practitioner Family; Visit Provider Nurse Practitioner Family | DX: A04.72 Enterocolitis due to Clostridium difficile, not specified as recurrent (principal); R19.7 Diarrhea, unspecified | CPT/HCPCS: 87045; 87493 ==

== ENCOUNTER 2023-12-20 13:51 | Emergency (ER) | payer MEDICARE, SELFPAY ==
[2023-12-20 13:53] VITALS: BP 96/72; PULSE 57; RESP 20; TEMP 36.6; O2SAT 95; BMI 16.8
[2023-12-20 14:31] VITALS: BP 103/56; PULSE 63; O2SAT 99
--- NOTE | 2023-12-20 14:37 | CT_ITS ---
FINAL REPORT TECHNIQUE: After the administration of oral and intravenous contrast, axial images were obtained through the abdomen and pelvis by computed tomography. The study was performed with techniques to keep radiation dose as low as reasonably achievable, (ALARA). Individual dose reduction techniques using automated exposure control or adjustment of mA and/or kV according to the patient's size were employed. CLINICAL HISTORY: abd pain, known stones in pancreas reported COMPARISON: 10/15/2023 FINDINGS: Abdomen: There is scarring in the lung bases. There is moderate diffuse fatty infiltration of the liver. There is pneumobilia within the left lobe of the liver, probably related to prior cholecystectomy and sphincterotomy. The spleen is unremarkable. There is dilatation of the pancreatic duct measuring up to 7 mm in diameter. There are few small calcifications within the uncinate process, probably due to chronic pancreatitis which is stable. The adrenal glands and kidneys are unremarkable. The aorta is normal in caliber. There is no free fluid or adenopathy. Pelvis: The appendix is not identified. The previously noted diffuse mucosal thickening throughout the colon has resolved. There are fluid-filled loops of colon. There is no evidence of obstruction. The urinary bladder is normal in size and configuration. There is no free fluid or adenopathy. There is streak artifact from orthopedic hardware in the proximal femurs. IMPRESSION: Resolution of changes from infectious/inflammatory colitis. Chronic pancreatitis in the uncinate process. Stable pneumobilia. Reviewed, Interpreted and Dictated by Adalid Salamanca MD Transcribed by Adelina Martinez Authenticated and [facility]
--- NOTE | 2023-12-20 14:40 | PC.NURSE ---
is talking to Kennedi Antonio about pt
--- NOTE | 2023-12-20 14:42 | ED_ITS ---
Discharge Plan Disposition Patient Disposition: Home, Self-Care Prescriptions Prescriptions: No Action lidocaine [Aspercreme (lidocaine)] 4 % adhesive patch,medicated 1 patch topical DAILYP PRN (Reason: Back Pain) temazepam 15 mg capsule 15 mg PO HS 30 Days Qty: 30 2RF paroxetine HCl 40 mg tablet 40 mg PO DAILY 90 Days Qty: 90 1RF Pro Fe 180 mg iron capsule 180 mg PO DAILY Qty: 30 2RF nitrofurantoin monohyd/m-cryst [Macrobid] 100 mg capsule 100 mg PO Q12H 10 Days Qty: 20 0RF Rx Instructions: must administer with a meal/food hydrocodone-acetaminophen 5-325 mg tablet 1 tab PO Q6H PRN (Reason: pain) Qty: 30 0RF sucralfate 1 gram tablet 1 g PO ACHS Patient Comments: TAKE 1 TABLET BY MOUTH 4 TIMES DAILY (BEFORE MEALS AND NIGHTLY) TAKE WITH 8 OZ OF WATER. SEPARATE FROM OTHER MEDS BY 2 HOURS ondansetron HCl 4 mg tablet 4 mg PO Q8HP PRN (Reason: nausea and vomiting) pantoprazole 40 mg tablet,delayed release (DR/EC) 40 mg PO BID pregabalin 150 mg capsule 150 mg PO TID Trelegy Ellipta 100-62.5-25 mcg blister with device 1 inh inhalation DAILY Creon 24,000-76,000 -120,000 unit capsule,delayed release(DR/EC) 1 cap PO DAILY Referrals Follow up/Referrals: Betty Antonio APRN [Primary Care Provider] - See instructions Activity Restrictions/Add. Instructions Additional Instructions/Restrictions: Call your family doctor to establish care for this visit to the emergency department and schedule follow-up within 48 hours to ensure improvement. If you have any worsening of your condition or any other concerning signs or symptoms, return to the emergency department or your primary care doctor for further evaluation. [id number] Imodium can help with diarrhea. Clinical Impressions Clinical Impression: Abdominal pain, Diarrhea Instructions Patient Instructions: DI for Acute Abdominal Pain Discharge ED Provider: Marko Snyder General Adult HPI <Felicitas Lazcano MD - Last Filed: 12/20/23 15:11> General Chief complaint: Abdominal Pain Stated complaint: poss sepsis,abd pain, poss C-dip, pancreatic stone Time Seen by Provider: 12/20/23 14:21 Mode of Arrival: Wheelchair Source of Information: Patient Limitations: No Limitations Description of Symptoms (Recalled from ER Triage Doc. by RN): Patient presents to ED with abd pain, N/V/D, and dizziness. Patient states she has been feeling 'unwell' for multiple weeks now. Patient reports she was seen at this past saturday and they d/c her to follow up with a bonbon cream warmer. Patient also reports swelling to left foot today, denies injury. Patient states she has a known stone in her pancreas and chronic pancreatitis. History of Present Illness HPI narrative: 63-year-old female with reported history of stones in her pancreas presents to the ER with of nausea, vomiting, dizziness, abdominal pain. Patient saw Dr. Antonio, her primary care physician earlier today. She reports that she was worried about sepsis and sent her to the ER for further evaluation. Patient reports yesterday she had sharp stabbing abdominal pain near her bellybutton for just a few minutes and then it went away. Patient reports she was recently admitted at where Dr. Noble did an ERCP and was unable to successfully remove any stones. Patient states she is currently on Macrobid for urinary tract infection. Urinalysis from her PCP was reviewed and does not demonstrate any findings of infection. Patient states she is having severe pain and reports that she has not taken her hydrocodone since early this morning. She states she wants the IV medication that begins with a D. Patient reports she has outpatient follow-up with GI scheduled at [facility]. Patient has a history of weight loss, recent C. difficile, and is concerned about bruising on her arms. Patient has poor oral intake and malnutrition. Related Data Home Medications Medication Instructions Recorded Confirmed lidocaine 4 % topical patch 1 patch topical DAILYP PRN Back 08/16/23 12/20/23 (Aspercreme (lidocaine)) Pain fluticasone fur. 100 mcg-umeclid 1 inh inhalation DAILY Breathing 10/16/23 12/20/23 62.5 mcg-vilant 25 mcg Problems inhalat.powder (Trelegy Ellipta) ondansetron HCl 4 mg tablet 4 mg PO Q8HP PRN nausea and 10/16/23 12/20/23 vomiting pantoprazole 40 mg tablet,delayed 40 mg PO BID Acid Reflux 10/16/23 12/20/23 release pregabalin 150 mg capsule 150 mg PO TID Pain 10/16/23 12/20/23 sucralfate 1 gram tablet 1 g PO ACHS 10/16/23 12/20/23 [id number] 1 cap PO DAILY 12/16/23 12/20/23 24,000-76,000-120,000 unit capsule,delayed rel (Creon) Previous Rx's Medication Instructions Recorded temazepam 15 mg capsule 15 mg PO HS Insomnia 30 days #30 09/03/23 caps paroxetine HCl 40 mg tablet 40 mg PO DAILY Mood 90 days #90 11/12/23 tabs nitrofurantoin 100 mg PO Q12H 10 days #20 caps 12/17/23 monohydrate/macrocrystals 100 mg capsule (Macrobid) polysaccharide iron complex 180 mg 180 mg PO DAILY #30 caps 12/17/23 iron capsule (Pro Fe) hydrocodone 5 mg-acetaminophen 325 1 tab PO Q6H PRN pain #30 tabs 12/19/23 mg tablet Allergies Allergy/AdvReac Type Severity Reaction Status Date / Time levofloxacin [From LEVAQUIN] Allergy Unknown SEIZURES Verified 12/20/23 13:14 [facility] <Felicitas Lazcano MD - Last Filed: 12/20/23 15:11> [facility] Disclaimer: The information contained in this section may have been updated after the patient was seen, as this information can be updated by other users. Medical History (Updated 12/20/23 @ 16:53 by Marko Snyder MD) Urinary tract infection Oral candidiasis Rib pain on left side Acute pancreatitis RUQ abdominal pain Nausea Presence of pancreatic duct stent Pancreatic disease Constipation Lower abdominal pain Neuropathy Depression Acute cystitis without hematuria Abdominal pain Abnormal electrocardiogram [ECG] [EKG] Dyspnea Tobacco dependence syndrome History of suicide attempt Mood disorder Tobacco abuse Marijuana abuse Multiple lacunar infarcts History of syncope Elevated blood pressure reading Bradycardia Memory loss Encephalopathy Contusion, hip Syncope and collapse SIRS (systemic inflammatory response syndrome) Gastroesophageal reflux disease Closed right hip fracture Hip fracture Surgical History History of repair of both hip joints History of appendectomy History of laparoscopic cholecystectomy History of hysterectomy History of tonsillectomy History of hip replacement History of aortic valve replacement History of aortic valve replacement with porcine valve Family History Other Diabetes Hypertension Stroke Social History Smoking Status: Current every day smoker tobacco type: cigarettes packs per day: 1 second hand exposure: Yes alcohol intake: never substance use type: other current occupational status: unemployed Travel in the last 8 weeks: None household members: family and children housing: house current occupational exposures/hazards: No caffeine: Yes <Felicitas Lazcano MD - Last Filed: 12/20/23 15:11> ROS Obtained: Yes All systems reviewed & no additional complaints except as documented Constitutional Constitutional: Reports chills, Denies fever(s), Denies headache(s) and Denies weakness Eyes Eyes: Denies change in vision ENT Ears, Nose, Mouth, and Throat: Reports dizziness (Described as lightheadedness), Denies headache(s), Denies nasal congestion and Denies sore throat Cardiovascular Cardiovascular: Denies chest pain, Denies dyspnea and Denies leg edema Respiratory Respiratory: Denies cough and Denies dyspnea Gastrointestinal Gastrointestingal: Denies constipation, diarrhea, nausea or vomiting Genitourinary Female Genitourinary: Denies dysuria Musculoskeletal Musculoskeletal: Denies arthralgias, Denies myalgias, Denies numbness and Denies tingling Integumentary/Breasts Skin/Breast: Denies change in pigmentation Neurologic Neurologic: Reports dizziness (Described as lightheadedness), Denies headache(s), Denies numbness, Denies tingling and Denies weakness Physical Exam <Felicitas Lazcano MD - Last Filed: 12/20/23 15:11> General General appearance: alert and in no apparent distress Head Head exam: atraumatic and normocephalic Eye Eye exam: Present PERRL and EOMI ENT ENT exam: Present mucous membranes moist Neck Neck exam: Present normal inspection and full ROM Chest Chest inspection: Present symmetric chest wall rise Respiratory Respiratory exam: Present normal lung sounds bilaterally; Absent respiratory distress, wheezes or stridor Cardiovascular Cardiovascular exam: Present regular rate and normal rhythm Abdominal Exam Abdominal exam: Present soft and tenderness (Worse in the epigastric/periumbilical region); Absent distention, guarding or rebound Comment: Nonacute abdomen Extremities Exam Extremities exam: Present full ROM, edema (+1 edema in the left foot) and other (Toes do not demonstrate any purple, rubio, or black discoloration. Capillary refill less than 2 seconds.) Neurological Exam Neurological exam: Present alert and oriented X3; Absent motor sensory deficit Psychiatric Psychiatric exam: Present normal affect and normal mood Skin Skin exam: Present warm, dry and other (Patient has superficial bruising on arms and legs) Medical Decision Making <Felicitas Lazcano MD - Last Filed: 12/20/23 15:11> [place] Inquiry Pt receiving controlled substance: No Vital Signs: 12/20/23 13:53 12/20/23 14:31 12/20/23 15:01 Temperature 97.8 F Temperature Source Oral Pulse Rate 63 63 Pulse Rate [Right Radial] 57 L Respiratory Rate 20 Blood Pressure 103/56 L 101/73 L Blood Pressure [Right Arm] 96/72 L Blood Pressure Mean 79 Blood Pressure Mean [Right Arm] 80 Blood Pressure Source [Right Arm] Automatic Cuff Blood Pressure Position [Right Arm] Sitting 02 Sat by Pulse Oximetry 95 99 99 Oxygen Delivery Method Room Air Lab Data Lab Results 12/20/23 14:10: WBC 13.8 H, RBC 3.68 L, Hgb 10.1 L, Hct 34.2 L, MCV 93.0, MCH 27.4, MCHC 29.5 L, RDW 18.7 H, Plt Count 561 H, MPV 8.4, Neut % (Auto) 90.5 H, L ymph % (Auto) 4.9 L, [place] % (Auto) 1.3 L, Eos % (Auto) 2.9, Baso % (Auto) 0.4, N eut # (Auto) 12.5 H, Lymph # (Auto) 0.7, [place] # (Auto) 0.2, Eos # (Auto) 0.4, Baso # (Auto) 0.1, Total Counted 100, Neutrophils % (Manual) 91 H, Lymphocytes % (Manual) 7 L, Monocytes % (Manual) 1 L, Eosinophils % (Manual) 1, Platelet Estimate Slight increase, RBC Morphology Normal, PT 12.2, INR 1.14 H, APTT 33.3 H, Sodium 138, Potassium 4.4, Chloride 108 H, Carbon Dioxide 20 L, Anion Gap 14.4, BUN 18 H, Creatinine 0.90, Estimated Creat Clear 37, Estimated GFR 63, Est GFR ( Amer) 76, Glucose 68 L, Calcium 9.6, Total Bilirubin 0.6, AST 37 H, ALT 13, Alkaline Phosphatase 189 H, Total Protein 7.4 D, Albumin 3.7, Globulin 3.7 H, Albumin/Globulin Ratio 1.0 L, Lipase 57 12/20/23 14:45: Troponin I < 0.01, NT-Pro-B Natriuret Pep 3270 H 12/20/23 15:31: SARS-CoV-2 (PCR) Not detected, Influenza A Untype (PCR) Not detected, Influenza Type B (PCR) Not detected 12/20/23 14:10 12/20/23 14:10 Orders (Tests/Meds): ED MEDICATIONS Generic Name Dose Route Start Last Admin Trade Name Freq PRN Reason Stop Dose Admin Dextrose/Lactated Ringer's 1,000 mls @ 250 mls/hr 12/20/23 15:09 12/20/23 15:17 Dextrose 5% In Lactated Ringer's 1000ml IV 12/20/23 19:08 250 mls/hr .Q4H ONE Administration Sodium Chloride 10 ml 12/20/23 15:12 12/20/23 15:13 Sodium Chloride 0.9% 10ml Syr (Rad Only) IV 01/19/24 15:11 10 ml NEEDED PRN Administration Maintain IV Site Discontinued Medications Generic Name Dose Route Start Last Admin Trade Name Freq PRN Reason Stop Dose Admin Hydrocodone Bitart/Acetaminophen 1 tab 12/20/23 14:37 12/20/23 14:44 Hydrocodone/Apap 5/325 Mg Tablet PO 12/20/23 14:38 1 tab ONCE ONE Administration Lactated Ringer's 1,000 mls @ 999 mls/hr 12/20/23 14:37 12/20/23 14:44 Lactated Ringer's 1000 Ml Bag IV 12/20/23 15:37 999 mls/hr .Q1H1M ONE Administration Iopamidol 75 ml 12/20/23 15:12 12/20/23 15:13 Iopamidol-370 (76%);100ml Bottle IV 12/20/23 15:13 75 ml ONCE ONE Administration ORDERS Category Date Time Status CT abdomen pelvis w con Stat Cat Scan 12/20/23 14:37 Completed CXR --portable [XR chest portable] Stat Exams 12/20/23 15:05 Completed BNP [NT Pro Brain Natriuretic Pep.] Stat Lab 12/20/23 14:45 Completed CBC w/Auto Diff [Complete Blood Count Auto Diff] Stat Lab 12/20/23 14:10 Completed CMP [Comprehensive Metabolic Panel] Stat Lab 12/20/23 14:10 Completed Lactic Acid Stat Lab 12/20/23 16:25 Received Lipase Stat Lab 12/20/23 14:10 Completed PT INR [Prothrombin Time INR] Stat Lab 12/20/23 14:10 Completed PTT [Activated Partial Thrombo Time] Stat Lab 12/20/23 14:10 Completed Rapid PCR Covid and Flu A/B Stat Lab 12/20/23 15:31 Completed Trop I [Troponin I] Stat Lab 12/20/23 14:45 Completed Troponin I Q3H Lab 12/20/23 18:15 Ordered Troponin I Q3H Lab 12/20/23 21:15 Ordered Medical Decision Narrative: In summary, this 63year old female presents to the emergency department today with multiple complaints including abdominal pain, bruising, patient also reports having chills, nausea, vomiting, diarrhea chronically. On initial evaluation patient is borderline hypotensive with blood pressure 103/56, she is chronically ill-appearing but nontoxic, no acute distress, abdomen with epigastric and periumbilical tenderness but no rebound or guarding, nonacute abdomen. Extremities demonstrate mild superficial bruising, +1 pitting edema in the left foot, cardiopulmonary exam reassuring. Differential diagnosis includes but is not limited to pancreatic duct stones, other biliary pathology, transaminitis, coagulopathy, thrombocytopenia, anemia, C. difficile, cardiac abnormality, fluid overload. I considered sepsis but patient does not meet SIRS criteria. Appropriate labs and imaging were ordered for workup. I asked the patient what she usually takes for pain and she told me she had not taken her midday dose of oral hydrocodone. I stated I would give her this and then reassess her pain and she ripped off her monitor stating she wanted to leave because I was not going to treat her pain. At that point she told me Libby actually took her seriously and gave her medication in the IV that started with a D. She stated that worked. Patient has multiple ongoing medical conditions which could be causing pain and I do believe she has underlying pathology to have pain, however her reaction to me wanting to start by treating her pain with her home pain medications is concerning for malingering. I told the patient the other concerns that I had necessitating workup in the ER. I told her if her pain did not improve we could discuss other pain management after her home medications. With her being borderline hypotensive I do not want to administer multiple narcotics potentially worsening her blood pressure. At this time she states she will stay. I called Dr. Antonio and had a phone discussion with her regarding her concerns. She stated she was concerned the patient may be septic because she was having persistent chills and diarrhea. She also stated she was concerned about the bruising on the patient's arms and discoloration of the toes. Toes are not currently discolored on my exam. We discussed her chronic weight loss, recent C. difficile with currently pending stool sample. We also discussed that her urinary tract infection which is currently being treated by Macrobid appears to be improving. We are both reassured by this. I also discussed with her patient's reaction to me offering her home pain medications. She is also concerned about this reaction but reports she has not had that type of encounter with her previously. Patient requested to be tested for influenza. Swab has been added to workup. CBC with mild leukocytosis, anemia improving from prior, platelet count actually elevated at 561, PT 12.2, INR 1.14, APTT 33.3, slight increase which could be adding to her coagulopathy. CMP with mild hyperchloremia, prerenal azotemia, patient is already receiving IV fluids, hypoglycemia at 68. Patient is receiving small bolus of D5 LR. LFTs demonstrate bilirubin 0.6, AST slightly elevated at 37, ALT 13, alkaline phosphatase 189, not significantly different from prior. Patient's total protein is improved to 7.4. Patient handed off to Dr. Snyder for further management and disposition pending additional lab and imaging workup. <Marko Snyder MD - Last Filed: 12/20/23 16:53> Vital Signs: 12/20/23 13:53 12/20/23 14:31 12/20/23 15:01 Temperature 97.8 F Temperature Source Oral Pulse Rate 63 63 Pulse Rate [Right Radial] 57 L Respiratory Rate 20 Blood Pressure 103/56 L 101/73 L Blood Pressure [Right Arm] 96/72 L Blood Pressure Mean 79 Blood Pressure Mean [Right Arm] 80 Blood Pressure Source [Right Arm] Automatic Cuff Blood Pressure Position [Right Arm] Sitting 02 Sat by Pulse Oximetry 95 99 99 Oxygen Delivery Method Room Air Lab Data Lab Results 12/20/23 14:10: WBC 13.8 H, RBC 3.68 L, Hgb 10.1 L, Hct 34.2 L, MCV 93.0, MCH 27.4, MCHC 29.5 L, RDW 18.7 H, Plt Count 561 H, MPV 8.4, Neut % (Auto) 90.5 H, L ymph % (Auto) 4.9 L, [place] % (Auto) 1.3 L, Eos % (Auto) 2.9, Baso % (Auto) 0.4, N eut # (Auto) 12.5 H, Lymph # (Auto) 0.7, [place] # (Auto) 0.2, Eos # (Auto) 0.4, Baso # (Auto) 0.1, Total Counted 100, Neutrophils % (Manual) 91 H, Lymphocytes % (Manual) 7 L, Monocytes % (Manual) 1 L, Eosinophils % (Manual) 1, Platelet Estimate Slight increase, RBC Morphology Normal, PT 12.2, INR 1.14 H, APTT 33.3 H, Sodium 138, Potassium 4.4, Chloride 108 H, Carbon Dioxide 20 L, Anion Gap 14.4, BUN 18 H, Creatinine 0.90, Estimated Creat Clear 37, Estimated GFR 63, Est GFR ( Amer) 76, Glucose 68 L, Calcium 9.6, Total Bilirubin 0.6, AST 37 H, ALT 13, Alkaline Phosphatase 189 H, Total Protein 7.4 D, Albumin 3.7, Globulin 3.7 H, Albumin/Globulin Ratio 1.0 L, Lipase 57 12/20/23 14:45: Troponin I < 0.01, NT-Pro-B Natriuret Pep 3270 H 12/20/23 15:31: SARS-CoV-2 (PCR) Not detected, Influenza A Untype (PCR) Not detected, Influenza Type B (PCR) Not detected Orders (Tests/Meds): ED MEDICATIONS Generic Name Dose Route Start Last Admin Trade Name Freq PRN Reason Stop Dose Admin Dextrose/Lactated Ringer's 1,000 mls @ 250 mls/hr 12/20/23 15:09 12/20/23 15:17 Dextrose 5% In Lactated Ringer's 1000ml IV 12/20/23 19:08 250 mls/hr .Q4H ONE Administration Sodium Chloride 10 ml 12/20/23 15:12 12/20/23 15:13 Sodium Chloride 0.9% 10ml Syr (Rad Only) IV 01/19/24 15:11 10 ml NEEDED PRN Administration Maintain IV Site Discontinued Medications Generic Name Dose Route Start Last Admin Trade Name Freq PRN Reason Stop Dose Admin Hydrocodone Bitart/Acetaminophen 1 tab 12/20/23 14:37 12/20/23 14:44 Hydrocodone/Apap 5/325 Mg Tablet PO 12/20/23 14:38 1 tab ONCE ONE Administration Lactated Ringer's 1,000 mls @ 999 mls/hr 12/20/23 14:37 12/20/23 14:44 Lactated Ringer's 1000 Ml Bag IV 12/20/23 15:37 999 mls/hr .Q1H1M ONE Administration Iopamidol 75 ml 12/20/23 15:12 12/20/23 15:13 Iopamidol-370 (76%);100ml Bottle IV 12/20/23 15:13 75 ml ONCE ONE Administration ORDERS Category Date Time Status CT abdomen pelvis w con Stat Cat Scan 12/20/23 14:37 Completed CXR --portable [XR chest portable] Stat Exams 12/20/23 15:05 Completed BNP [NT Pro Brain Natriuretic Pep.] Stat Lab 12/20/23 14:45 Completed CBC w/Auto Diff [Complete Blood Count Auto Diff] Stat Lab 12/20/23 14:10 Completed CMP [Comprehensive Metabolic Panel] Stat Lab 12/20/23 14:10 Completed Lactic Acid Stat Lab 12/20/23 16:25 Received Lipase Stat Lab 12/20/23 14:10 Completed PT INR [Prothrombin Time INR] Stat Lab 12/20/23 14:10 Completed PTT [Activated Partial Thrombo Time] Stat Lab 12/20/23 14:10 Completed Rapid PCR Covid and Flu A/B Stat Lab 12/20/23 15:31 Completed Trop I [Troponin I] Stat Lab 12/20/23 14:45 Completed Troponin I Q3H Lab 12/20/23 18:15 Ordered Troponin I Q3H Lab 12/20/23 21:15 Ordered Medical Decision Narrative: In summary, this 63year old female presents to the emergency department today with multiple complaints including abdominal pain, bruising, patient also reports having chills, nausea, vomiting, diarrhea chronically. On initial evaluation patient is borderline hypotensive with blood pressure 103/56, she is chronically ill-appearing but nontoxic, no acute distress, abdomen with epigastric and periumbilical tenderness but no rebound or guarding, nonacute abdomen. Extremities demonstrate mild superficial bruising, +1 pitting edema in the left foot, cardiopulmonary exam reassuring. Differential diagnosis includes but is not limited to pancreatic duct stones, other biliary pathology, transaminitis, coagulopathy, thrombocytopenia, anemia, C. difficile, cardiac abnormality, fluid overload. I considered sepsis but patient does not meet SIRS criteria. Appropriate labs and imaging were ordered for workup. I asked the patient what she usually takes for pain and she told me she had not taken her midday dose of oral hydrocodone. I stated I would give her this and then reassess her pain and she ripped off her monitor stating she wanted to leave because I was not going to treat her pain. At that point she told me Grafton actually took her seriously and gave her medication in the IV that started with a D. She stated that worked. Patient has multiple ongoing medical conditions which could be causing pain and I do believe she has underlying pathology to have pain, however her reaction to me wanting to start by treating her pain with her home pain medications is concerning for malingering. I told the patient the other concerns that I had necessitating workup in the ER. I told her if her pain did not improve we could discuss other pain management after her home medications. With her being borderline hypotensive I do not want to administer multiple narcotics potentially worsening her blood pressure. At this time she states she will stay. I called Dr. Antonio and had a phone discussion with her regarding her concerns. She stated she was concerned the patient may be septic because she was having persistent chills and diarrhea. She also stated she was concerned about the bruising on the patient's arms and discoloration of the toes. Toes are not currently discolored on my exam. We discussed her chronic weight loss, recent C. difficile with currently pending stool sample. We also discussed that her urinary tract infection which is currently being treated by Geovanna appears to be improving. We are both reassured by this. I also discussed with her patient's reaction to me offering her home pain medications. She is also concerned about this reaction but reports she has not had that type of encounter with her previously. Patient requested to be tested for influenza. Swab has been added to workup. CBC with mild leukocytosis, anemia improving from prior, platelet count actually elevated at 561, PT 12.2, INR 1.14, APTT 33.3, slight increase which could be adding to her coagulopathy. CMP with mild hyperchloremia, prerenal azotemia, patient is already receiving IV fluids, hypoglycemia at 68. Patient is receiving small bolus of D5 LR. LFTs demonstrate bilirubin 0.6, AST slightly elevated at 37, ALT 13, alkaline phosphatase 189, not significantly different from prior. Patient's total protein is improved to 7.4. Patient handed off to Dr. Snyder for further management and disposition pending additional lab and imaging workup. Lillian: I assumed primary responsibility for this patient after signout from previous physician. On my evaluation, patient very well-appearing. Further conversation reveals that patient last had ERCP in October 2023, this was right around when she had C. difficile. States she is currently having diarrhea that is nonbloody, non-mucousy. Following with her family doctor for this. I feel this is appropriate. Mild leukocytosis 13.8 with neutrophilia. Nonactionable chemistry with normal kidney function, no gap, normal lipase. Nonactionable LFTs. CT of the abdomen and pelvis with stable pneumobilia from previous, likely secondary to ERCPs and sphincterotomy, also has mildly thickened loops of bowel concerning for enteritis. No acute process. Patient feeling better after supportive care, I feel she is appropriate for home-going. In no acute distress, abdomen is soft, chronically ill, but very well-appearing overall. Because patient at baseline without signs or symptoms of clinical decompensation, deemed appropriate for discharge. Results were relayed to patient who voiced understanding and were agreeable to outpatient management and follow up. I discussed my clinical impression with patient and answered all questions. At this time, the evidence for any other entities in the differential is insufficient to warrant any further testing or ED observation. This was explained as well. Advisory was given that persistent or worsening symptoms require further evaluation. I confirmed the understanding of this discussion. Critical Care <Felicitas Lazcano MD - Last Filed: 12/20/23 15:11> Critical Care Time Critical Care Time: No
[2023-12-20] MEDS: HYDROCODONE/APAP 5/325 MG TABLET 1 TAB PO (14:44)
[2023-12-20] MEDS: LACTATED RINGERS 1000ML 1,000 ML 999 ML IV (14:44)
[2023-12-20 14:53] LABS: Basophils # 0.1 K/mm3 (0-0.2); Basophils % 0.4 % (0.1-2.0); Eosinophils # 0.4 K/mm3 (0.0-0.4); Eosinophils % 2.9 % (0.1-12.0); Hematocrit 34.2 % (37.0-47.0); Hemoglobin 10.1 g/dL (12.2-16.2); Lymphocytes # 0.7 K/mm3 (0.7-4.5); Lymphocytes % 4.9 % (10-50); Mean Corpuscular HGB Conc 29.5 g/dL (31.8-35.4); Mean Corpuscular Hemoglobin 27.4 pg (27.0-31.2); Mean Platelet Volume 8.4 fl (7.4-10.4); Monocytes # 0.2 K/mm3 (0.1-1.0); Monocytes % 1.3 % (1.7-9.3); Neutrophils # 12.5 K/mm3 (1.8-7.8); Neutrophils % 90.5 % (37.0-80.0); Platelet Count 561 K/mm3 (142-424); Red Blood Count 3.68 M/mm3 (4.20-5.40); Red Cell Distribution Width 18.7 % (11.5-17.5); White Blood Count 13.8 K/mm3 (4.8-10.8)
[2023-12-20 14:54] LABS: Chloride 108 mmol/L (98-107); Potassium 4.4 mmoL/L (3.5-5.1); Sodium 138 mmol/L (136-145)
[2023-12-20 14:55] LABS: MANUAL DIFFERENTIAL MANUAL DIFFERENTIAL (MANUAL DIFF)
[2023-12-20 14:56] LABS: Blood Urea Nitrogen 18 mg/dl (7-17)
[2023-12-20 14:57] LABS: Alanine Aminotransferase 13 U/L (12-78); Albumin Level 3.7 g/dl (3.5-5.0); Alkaline Phosphatase 189 U/L (38-126); Anion Gap 14.4 mEq/L (5-15); Aspartate Amino Transferase 37 U/L (14-36); Bilirubin,Total 0.6 mg/dl (0.2-1.3); Calcium 9.6 mg/dl (8.4-10.2); Carbon Dioxide 20 mmol/L (22.0-30.0); Creatinine Clearance Estimated 37 mL/min (50-200); Estimated Glomerular Filt Rate 63 ml/min (>60); GFR (African American) 76 ML/MIN (>60); Globulin 3.7 g/dL (1.3-3.2); Glucose 68 mg/dl (74-100); Lipase 57 U/L (23-300); Total Protein,Serum 7.4 g/dl (6.3-8.2)
[2023-12-20 15:00] LABS: Activated Partial Thrombo Time 33.3 seconds (22.8-30.6); INR 1.14 (0.9-1.1); Prothrombin Time 12.2 seconds (10.1-12.5)
[2023-12-20 15:01] VITALS: BP 101/73; PULSE 63; O2SAT 99
--- NOTE | 2023-12-20 15:05 | XR_ITS ---
FINAL REPORT CLINICAL HISTORY: peripheral edema COMPARISON: 10/18/2023 FINDINGS: The heart size is normal. Sternotomy wires are present. There are mild chronic changes in the lung bases. There is no focal infiltrate or edema. There are no pleural effusions. There is no pneumothorax. There is no osseous abnormality. IMPRESSION: Mild chronic changes without acute cardiopulmonary process Reviewed, Interpreted and Dictated by Adalid Salamanca MD Transcribed by Adelina Martinez Authenticated and [facility]
--- NOTE | 2023-12-20 15:05 | ECG_ITS ---
APPROVED REPORT Exam: Resting ECG HR:62 bpm ECG Measurements Heart Rate 62 AXES VA 166 P 82 QRSd 77 QRS 91 QT 434 T 78 QTc 440 Conclusion SINUS RHYTHM BORDERLINE RIGHT AXIS DEVIATION [QRS AXIS > 90] SEPTAL MYOCARDIAL INFARCTION , OF INDETERMINATE AGE [40+ ms Q WAVE IN V1/V2] Electronically signed by : RADHA ELLIOTT, 12/20/2023 20:21:09
[2023-12-20 15:07] LABS: Eosinophils % 1 % (0-3); Lymphocytes % 7 % (10-50); Monocytes % 1 % (2-9); Neutrophils % 91 % (42-76); Platelet Estimate Slight Increase; RBC Morphology Normal; Total Cells Counted 100
[2023-12-20] MEDS: IOPAMIDOL-370 (76%);100ML BOTTLE 75 ML IV (15:13)
[2023-12-20] MEDS: SODIUM CHLORIDE 0.9% 10ML SYR (RAD ONLY) 10 ML IV (15:13)
[2023-12-20] MEDS: DEXTROSE 5%-LACTATED RINGERS 1,000 ML 250 ML IV (15:17)
[2023-12-20 15:29] LABS: NT Pro Brain Natriuretic Pep. 3270 pg/mL (0-125)
[2023-12-20 15:33] LABS: Troponin I < 0.01 ng/ml (0.00-0.034)
[2023-12-20 15:36] LABS: Coronavirus 19, PCR Not Detected (NotDetected); Influenza A, PCR Not Detected (NotDetected); Influenza B, PCR Not Detected (NotDetected)
[2023-12-20 16:53] LABS: Lactic Acid 2.1 mmol/L (0.7-2.1)
[2023-12-20 16:57] VITALS: BP 96/57; PULSE 88; RESP 17; TEMP 36.6; O2SAT 98
[2023-12-20 20:35] LABS: Reflex Lactic Add Lactic Reflex
== END 2023-12-20 17:03 | disposition home or self-care (01) ==
PROVIDERS: Emergency Medicine; Emergency Provider Emergency Medicine; PCP Nurse Practitioner Family
DX: R10.33 Periumbilical pain (principal); R19.7 Diarrhea, unspecified; R11.2 Nausea with vomiting, unspecified; F17.210 Nicotine dependence, cigarettes, uncomplicated
CPT/HCPCS: 36415; 71045; 74177; 80053; 83605; 83690; 83880; 84484; 85007; 85025; 85610; 85730; 87636; 93005; 96365; 96366; 99285; Q9967

== ENCOUNTER 2023-12-24 12:30 | Outpatient (CLI) | payer MEDICARE, SELFPAY ==
[2023-12-24 12:45] LABS: Basophils # 0.1 K/mm3 (0-0.2); Basophils % 0.5 % (0.1-2.0); Eosinophils # 0.7 K/mm3 (0.0-0.4); Eosinophils % 6.9 % (0.1-12.0); Hematocrit 30.8 % (37.0-47.0); Hemoglobin 9.4 g/dL (12.2-16.2); Lymphocytes # 1.8 K/mm3 (0.7-4.5); Lymphocytes % 18.7 % (10-50); Mean Corpuscular HGB Conc 30.5 g/dL (31.8-35.4); Mean Corpuscular Hemoglobin 27.6 pg (27.0-31.2); Mean Corpuscular Volume 90.6 fl (81-99); Mean Platelet Volume 8.5 fl (7.4-10.4); Monocytes # 0.2 K/mm3 (0.1-1.0); Monocytes % 2.1 % (1.7-9.3); Neutrophils # 6.8 K/mm3 (1.8-7.8); Neutrophils % 71.7 % (37.0-80.0); Platelet Count 510 K/mm3 (142-424); Red Cell Distribution Width 18.8 % (11.5-17.5); White Blood Count 9.5 K/mm3 (4.8-10.8)
[2023-12-24 13:42] LABS: Chloride 114 mmol/L (98-107); Potassium 4.1 mmoL/L (3.5-5.1); Sodium 141 mmol/L (136-145)
[2023-12-24 13:44] LABS: Alanine Aminotransferase 12 U/L (12-78); Aspartate Amino Transferase 18 U/L (14-36); Blood Urea Nitrogen 16 mg/dl (7-17); Estimated Glomerular Filt Rate 100 ml/min (>60); GFR (African American) 121 ML/MIN (>60)
[2023-12-24 13:45] LABS: Albumin Level 2.8 g/dl (3.5-5.0); Alkaline Phosphatase 181 U/L (38-126); Anion Gap 8.1 mEq/L (5-15); Bilirubin,Total 0.3 mg/dl (0.2-1.3); Calcium 8.9 mg/dl (8.4-10.2); Carbon Dioxide 23 mmol/L (22.0-30.0); Globulin 2.7 g/dL (1.3-3.2); Glucose 83 mg/dl (74-100); Total Protein,Serum 5.5 g/dl (6.3-8.2)
[2023-12-26 12:28] LABS: Peripheral Smear Review Scanned Result
== END 2023-12-24 23:59 | disposition home or self-care (01) ==
LOC: LAB.DROPOF 12:30
PROVIDERS: PCP Nurse Practitioner Family; Visit Provider Nurse Practitioner Family
DX: R23.3 Spontaneous ecchymoses (principal); D72.829 Elevated white blood cell count, unspecified
CPT/HCPCS: 80053; 85025

== ENCOUNTER 2024-01-10 12:12 | Outpatient (CLI) | payer MEDICARE, SELFPAY ==
--- NOTE | 2024-01-10 12:23 | XR_ITS ---
FINAL REPORT CLINICAL HISTORY: left wrist swelling, pain FINDINGS: LEFT WRIST Three views demonstrate no acute fracture or dislocation. There are mild degenerative changes worse at the radial aspect of the wrist. The soft tissues are unremarkable. IMPRESSION: No acute bony abnormality. Reviewed, Interpreted and Dictated by Charles Wu III, MD Transcribed by Gayathri Betancourt Authenticated and [facility]
--- NOTE | 2024-01-10 12:23 | XR_ITS ---
FINAL REPORT CLINICAL HISTORY: left wrist and hand swelling FINDINGS: LEFT HAND 3 views were obtained. There is no acute fracture or dislocation. There are mild degenerative changes, worse at the first carpometacarpal joint. There is no soft tissue abnormality. IMPRESSION: No acute bony abnormality. Reviewed, Interpreted and Dictated by Charles Wu III, MD Transcribed by Gayathri Betancourt Authenticated and [facility]
[2024-01-10 14:07] LABS: Magnesium 1.3 mg/dl (1.6-2.3)
== END 2024-01-10 23:59 | disposition home or self-care (01) ==
LOC: RAD 12:13
PROVIDERS: PCP Nurse Practitioner Family; Visit Provider Nurse Practitioner Family
DX: M25.432 Effusion, left wrist (principal); M79.89 Other specified soft tissue disorders; M62.838 Other muscle spasm
CPT/HCPCS: 73110; 73120; 83735

== ENCOUNTER 2024-01-13 12:30 | Outpatient (CLI) | payer MEDICARE, SELFPAY ==
[2024-01-13 13:30] LABS: Chloride 110 mmol/L (98-107)
[2024-01-13 13:31] LABS: Sodium 141 mmol/L (136-145)
[2024-01-13 13:33] LABS: Alanine Aminotransferase 16 U/L (12-78); Alkaline Phosphatase 162 U/L (38-126); Aspartate Amino Transferase 27 U/L (14-36); Bilirubin,Total 0.3 mg/dl (0.2-1.3); Blood Urea Nitrogen 18 mg/dl (7-17); Carbon Dioxide 23 mmol/L (22.0-30.0); Estimated Glomerular Filt Rate 124 ml/min (>60); GFR (African American) 150 ML/MIN (>60)
[2024-01-13 13:34] LABS: Albumin Level 3.4 g/dl (3.5-5.0); Albumin/Globulin Ratio 0.9 (1.1-1.8); Calcium 9.3 mg/dl (8.4-10.2); Globulin 3.6 g/dL (1.3-3.2); Glucose 116 mg/dl (74-100); Magnesium 1.4 mg/dl (1.6-2.3)
[2024-01-16 04:04] LABS: Magnesium,RBC 5.1 mg/dL (3.7-7.0)
== END 2024-01-13 23:59 | disposition home or self-care (01) ==
LOC: LAB 12:31
PROVIDERS: PCP Nurse Practitioner Family; Visit Provider Nurse Practitioner Family
DX: E83.42 Hypomagnesemia; M62.838 Other muscle spasm; R30.0 Dysuria; R82.90 Unspecified abnormal findings in urine; B96.4 Proteus (mirabilis) (morganii) as the cause of diseases classified elsewhere; B96.29 Other Escherichia coli [E. coli] as the cause of diseases classified elsewhere
CPT/HCPCS: 36415; 80053; 83735; 87086; 87088; 87186

== ENCOUNTER 2024-01-14 13:43 | Outpatient (CLI) | payer MEDICARE, SELFPAY ==
--- NOTE | 2024-01-14 13:46 | XR_ITS ---
FINAL REPORT CLINICAL HISTORY: left forearm pain post fall COMPARISON: None FINDINGS: LEFT FOREARM: Two images of the left forearm were obtained. There is no evidence of fracture or dislocation. A large elbow joint effusion is present. There is no soft tissue abnormality identified. IMPRESSION: Large elbow joint effusion is present. Reviewed, Interpreted and Dictated by Charles Wu III, MD Transcribed by Franci Velazco Authenticated and [facility]
--- NOTE | 2024-01-14 13:46 | XR_ITS ---
FINAL REPORT CLINICAL HISTORY: injury from fall COMPARISON: None FINDINGS: LEFT ELBOW: Two images of the left elbow were obtained. There is a nondisplaced lateral radial head fracture present, which extends to the articular surface. A joint effusion versus hemarthrosis is present. There is no soft tissue abnormality identified. IMPRESSION: Nondisplaced lateral radial head fracture present, with a joint effusion versus hemarthrosis present. Reviewed, Interpreted and Dictated by Charles Wu III, MD Transcribed by Franci Velazco Authenticated and [facility]
[2024-01-14 14:21] VITALS: BP 141/82; PULSE 89; RESP 18; TEMP 36.3; O2SAT 100
[2024-01-14] MEDS: MAGNESIUM SULFATE IN WATER 2 GM/50 ML PIGGYBACK IV (14:21)
[2024-01-14] MEDS: SODIUM CHLORIDE 0.9% 10ML FLUSH SYRINGE 10 ML IV (14:21)
[2024-01-14] MEDS: SODIUM CHLORIDE 0.9% 50ML BAG 50 ML IV (14:21)
[2024-01-14 15:40] VITALS: BP 132/72; PULSE 88; RESP 18; O2SAT 99
== END 2024-01-14 15:40 | disposition home or self-care (01) ==
LOC: INF 13:44
PROVIDERS: PCP Nurse Practitioner Family; Visit Provider Nurse Practitioner Family
DX: E83.42 Hypomagnesemia; M25.522 Pain in left elbow; S59.902A Unspecified injury of left elbow, initial encounter; W19.XXXA Unspecified fall, initial encounter
CPT/HCPCS: 73080; 73090; 96365; J3475

== ENCOUNTER 2024-01-16 05:53 | Emergency (ER) | payer MEDICARE, SELFPAY ==
[2024-01-16] VITALS (7 sets, daily range): BP systolic 128–158; BP diastolic 67–93; PULSE 58–86; RESP 18–19; TEMP 36.4; O2SAT 96–98; BMI 16.5
--- NOTE | 2024-01-16 06:13 | XR_ITS ---
FINAL REPORT CLINICAL HISTORY: fall, known Radial head fx FINDINGS: Left forearm Two views were obtained. No forearm fracture is identified. There is an intercondylar fracture of the distal humerus with 5 mm of anterior displacement of the distal fracture fragment. There is soft tissue swelling. IMPRESSION: Fracture as above. Reviewed, Interpreted and Dictated by Charles Wu III, MD Transcribed by Cassandra Burgos Authenticated and [facility]
--- NOTE | 2024-01-16 06:13 | CT_ITS ---
FINAL REPORT CLINICAL HISTORY: Right side of head injury after a fall FINDINGS: Axial images of the head were obtained without contrast. Coronal reformatted images were also obtained.This study was performed with techniques to keep radiation doses as low as reasonably achievable (ALARA). Individualized dose reduction techniques using automated exposure control or adjustment of mA and/or kV according to the patient's size were employed. There is no evidence of intracranial hemorrhage or mass. The ventricular size is within normal limits. There is no evidence of shift of the midline structures. No abnormal extra axial fluid collection is identified. No skull abnormality is seen on the bone window images. IMPRESSION: No acute intracranial abnormality. Reviewed, Interpreted and Dictated by Charles Wu III, MD Transcribed by Gayathri Betancourt Authenticated and [facility]
--- NOTE | 2024-01-16 06:13 | XR_ITS ---
FINAL REPORT CLINICAL HISTORY: fall, pain, known fx, compare to previous FINDINGS: Left elbow Three views were obtained. There is an intercondylar fracture of the distal humerus with 5 mm of anterior displacement of the distal fracture fragment. There is soft tissue swelling. IMPRESSION: Fracture as above. Reviewed, Interpreted and Dictated by Charles Wu III, MD Transcribed by Cassandra Burgos Authenticated and [facility]
--- NOTE | 2024-01-16 06:13 | CT_ITS ---
FINAL REPORT CLINICAL HISTORY: Status post fall with neck pain COMPARISON: 01/05/2022 FINDINGS: Axial CT images of the cervical spine were obtained without contrast. Sagittal and coronal reformatted images were also obtained. This study was performed with techniques to keep radiation doses as low as reasonably achievable (ALARA). Individualized dose reduction techniques using automated exposure control or adjustment of mA and/or kV according to the patient's size were employed. There is no evidence of fracture or dislocation. The bony alignment is normal. There are mild to moderate degenerative changes. There is multilevel neuroforaminal narrowing. There is no evidence of canal stenosis. No paraspinous soft tissue abnormality is seen. Limited images of the upper thorax are unremarkable. IMPRESSION: No fracture or acute bony abnormality identified. Reviewed, Interpreted and Dictated by Charles Wu III, MD Transcribed by Gayathri Betancourt Authenticated and [facility]
--- NOTE | 2024-01-16 06:19 | ED_ITS ---
Discharge Plan Disposition Patient Disposition: Home, Self-Care Prescriptions Prescriptions: No Action lidocaine [Aspercreme (lidocaine)] 4 % adhesive patch,medicated 1 patch topical DAILYP PRN (Reason: Back Pain) tramadol 50 mg tablet 50 mg PO Q6H PRN (Reason: Pain) baclofen 10 mg tablet 10 mg PO TID PRN (Reason: muscle spasm) Qty: 30 0RF pregabalin [Lyrica] 200 mg capsule 200 mg PO BID 30 Days Qty: 60 2RF nitrofurantoin monohyd/m-cryst [Macrobid] 100 mg capsule 100 mg PO BID 10 Days Qty: 20 0RF Rx Instructions: must administer with a meal/food gabapentin 100 mg capsule 150 mg PO DAILY Patient Comments: TAKE 1 CAPSULE BY MOUTH THREE TIMES DAILY paroxetine HCl 40 mg tablet 40 mg PO DAILY 90 Days Qty: 90 1RF Pro Fe 180 mg iron capsule 180 mg PO DAILY Qty: 30 2RF temazepam 15 mg capsule 15 mg PO HS 30 Days Qty: 30 2RF methylprednisolone [Medrol (Naresh)] 4 mg tablets,dose pack See Rx Instructions PO PER PKG DIR Qty: 21 0RF Rx Instructions: PO PER PKG DIR sucralfate 1 gram tablet 1 g PO ACHS Patient Comments: TAKE 1 TABLET BY MOUTH 4 TIMES DAILY (BEFORE MEALS AND NIGHTLY) TAKE WITH 8 OZ OF WATER. SEPARATE FROM OTHER MEDS BY 2 HOURS ondansetron HCl 4 mg tablet 4 mg PO Q8HP PRN (Reason: nausea and vomiting) pantoprazole 40 mg tablet,delayed release (DR/EC) 40 mg PO BID Trelegy Ellipta 100-62.5-25 mcg blister with device 1 inh inhalation DAILY Creon 24,000-76,000 -120,000 unit capsule,delayed release(DR/EC) 1 cap PO DAILY Referrals Follow up/Referrals: Betty Antonio APRN [Primary Care Provider] - See instructions Activity Restrictions/Add. Instructions Additional Instructions/Restrictions: Follow-up with Dr. Spann in office for surgical planning. Call your family doctor to establish care for this visit to the emergency department and schedule follow-up within 48 hours to ensure improvement. If you have any worsening of your condition or any other concerning signs or symptoms, return to the emergency department or your primary care doctor for further evaluation. Clinical Impressions Clinical Impression: Fall, Left elbow pain, Muscle spasms of neck Fracture, humerus closed Qualifiers: Encounter type: initial encounter Humerus Location: shaft Fracture alignment: displaced Laterality: left Discharge ED Provider: Marko Snyder General Adult HPI <Felicitas Lazcano MD - Last Filed: 01/16/24 06:30> General Chief complaint: Extremity Injury, Upper Stated complaint: broken L arm from prev fall,fell again,hurt arm ag Time Seen by Provider: 01/16/24 05:56 History of Present Illness HPI narrative: 63-year-old female presents to the ER for concerns of left elbow pain as well as right-sided neck spasm. Patient had fall 2 days ago. She has a identified left radial head fracture and was supposed to see Dr. Spann for that today. Unfortunately overnight patient had another fall. She struck the right side of her head, she did not lose consciousness, she does not take any blood thinners. She is complaining of pain on the right side of her head as well as muscle spasm in her neck. Neck spasms have been ongoing and patient is already receiving treatment and follow-up. She has had magnesium infusion for this purpose. Patient came to the ER because she is having exacerbation of her left elbow pain since her fall overnight. She states she is supposed to take hydrocodone 5/325 but has not taken a dose since last night. Related Data Home Medications Medication Instructions Recorded Confirmed lidocaine 4 % topical patch 1 patch topical DAILYP PRN Back 08/16/23 01/14/24 (Aspercreme (lidocaine)) Pain fluticasone fur. 100 mcg-umeclid 1 inh inhalation DAILY Breathing 10/16/23 01/14/24 62.5 mcg-vilant 25 mcg Problems inhalat.powder (Trelegy Ellipta) ondansetron HCl 4 mg tablet 4 mg PO Q8HP PRN nausea and 10/16/23 01/14/24 vomiting pantoprazole 40 mg tablet,delayed 40 mg PO BID Acid Reflux 10/16/23 01/14/24 release sucralfate 1 gram tablet 1 g PO ACHS 10/16/23 01/14/24 [id number] 1 cap PO DAILY 12/16/23 01/14/24 24,000-76,000-120,000 unit capsule,delayed rel (Creon) tramadol 50 mg tablet 50 mg PO Q6H PRN Pain 01/10/24 01/14/24 gabapentin 100 mg capsule 150 mg PO DAILY 01/14/24 01/14/24 Previous Rx's Medication Instructions Recorded paroxetine HCl 40 mg tablet 40 mg PO DAILY Mood 90 days #90 11/12/23 tabs polysaccharide iron complex 180 mg 180 mg PO DAILY #30 caps 12/17/23 iron capsule (Pro Fe) temazepam 15 mg capsule 15 mg PO HS Insomnia 30 days #30 12/30/23 caps baclofen 10 mg tablet 10 mg PO TID PRN muscle spasm #30 01/10/24 tabs pregabalin 200 mg capsule (Lyrica) 200 mg PO BID 30 days #60 caps 01/10/24 methylprednisolone 4 mg tablets in See Rx Instructions PO PER PKG DIR 01/12/24 a dose pack (Medrol (Naresh)) #21 tabs nitrofurantoin 100 mg PO BID 10 days #20 caps 01/13/24 monohydrate/macrocrystals 100 mg capsule (Macrobid) Allergies Allergy/AdvReac Type Severity Reaction Status Date / Time levofloxacin [From LEVAQUIN] Allergy Unknown SEIZURES Verified 01/14/24 14:30 [facility] <Felicitas Lazcano MD - Last Filed: 01/16/24 06:30> [facility] Disclaimer: The information contained in this section may have been updated after the patient was seen, as this information can be updated by other users. Medical History Nausea Urinary tract infection Oral candidiasis Rib pain on left side Acute pancreatitis RUQ abdominal pain Presence of pancreatic duct stent Pancreatic disease Constipation Lower abdominal pain Neuropathy Depression Acute cystitis without hematuria Abdominal pain Abnormal electrocardiogram [ECG] [EKG] Dyspnea Tobacco dependence syndrome History of suicide attempt Mood disorder Tobacco abuse Marijuana abuse Multiple lacunar infarcts History of syncope Elevated blood pressure reading Bradycardia Memory loss Encephalopathy Contusion, hip Syncope and collapse SIRS (systemic inflammatory response syndrome) Gastroesophageal reflux disease Closed right hip fracture Hip fracture Surgical History History of repair of both hip joints History of appendectomy History of laparoscopic cholecystectomy History of hysterectomy History of tonsillectomy History of hip replacement History of aortic valve replacement History of aortic valve replacement with porcine valve Family History Other Diabetes Hypertension Stroke Social History (Updated 01/14/24 @ 14:32 by Shoaib Jordan RN) Smoking Status: Current every day smoker tobacco type: cigarettes packs per day: 1 second hand exposure: Yes alcohol intake: never substance use type: other current occupational status: unemployed Travel in the last 8 weeks: None household members: family and children housing: house current occupational exposures/hazards: No caffeine: Yes <Felicitas Lazcano MD - Last Filed: 01/16/24 06:30> ROS Obtained: Yes All systems reviewed & no additional complaints except as documented Constitutional Constitutional: Denies chills, Denies fever(s), Denies headache(s) and Denies weakness Eyes Eyes: Denies change in vision ENT Ears, Nose, Mouth, and Throat: Denies dizziness, Denies headache(s), Denies nasal congestion, Reports neck pain (Right-sided muscle spasm) and Denies sore throat Cardiovascular Cardiovascular: Denies chest pain, Denies dyspnea and Denies leg edema Respiratory Respiratory: Denies cough and Denies dyspnea Gastrointestinal Gastrointestingal: Denies constipation, diarrhea, nausea or vomiting Genitourinary Female Genitourinary: Denies dysuria Musculoskeletal Musculoskeletal: Reports arthralgias (Left elbow pain, swelling), Reports joint swelling, Reports limited range of motion (Secondary to left elbow pain), Denies myalgias, Reports neck pain (Right-sided muscle spasm), Denies numbness and Denies tingling Integumentary/Breasts Skin/Breast: Denies change in pigmentation Neurologic Neurologic: Denies dizziness, Denies headache(s), Denies numbness, Denies tingling and Denies weakness Physical Exam <Felicitas Lazcano MD - Last Filed: 01/16/24 06:30> General General appearance: alert and in no apparent distress Head Head exam: normocephalic and other (Mild tenderness to palpation with small hematoma on the right parietal occipital scalp) Eye Eye exam: Present PERRL and EOMI ENT ENT exam: Present mucous membranes moist Neck Neck exam: Present normal inspection, full ROM and tenderness (Right cervical paraspinal muscles, no midline tenderness) Chest Chest inspection: Present symmetric chest wall rise Respiratory Respiratory exam: Absent respiratory distress or stridor Cardiovascular Cardiovascular exam: Present regular rate and normal rhythm Abdominal Exam Abdominal exam: Present soft; Absent distention or tenderness Extremities Exam Extremities exam: Present tenderness (Tenderness to palpation of the left elbow, proximal forearm, patient complains of pain in the elbow/forearm when I palpate the upper arm, likely secondary to bicep insertion) and other (Neurovascularly intact throughout); Absent full ROM (Limited range of motion of the left elbow secondary to pain, swelling) Neurological Exam Neurological exam: Present alert and oriented X3; Absent motor sensory deficit (Full strength and sensation distal to left arm injury, no motor or sensory deficits throughout) Psychiatric Psychiatric exam: Present normal affect and normal mood Skin Skin exam: Present warm and dry Medical Decision Making <Felicitas Lazcano MD - Last Filed: 01/16/24 06:30> Suleman Badillo Pt receiving controlled substance: No Vital Signs: 01/16/24 05:55 01/16/24 06:07 01/16/24 06:30 Temperature 97.5 F L Temperature Source Oral Pulse Rate 58 L 81 Pulse Rate [Right] 82 Respiratory Rate 18 18 18 Blood Pressure 158/93 H 137/84 Blood Pressure [Right Arm] 158/93 H Blood Pressure Mean [Right Arm] 114 Blood Pressure Source [Right Arm] Automatic Cuff 02 Sat by Pulse Oximetry 98 97 98 Oxygen Delivery Method Room Air Room Air 01/16/24 07:30 01/16/24 08:00 Temperature Temperature Source Pulse Rate 79 86 Pulse Rate [Right] Respiratory Rate Blood Pressure 128/75 152/80 H Blood Pressure [Right Arm] Blood Pressure Mean [Right Arm] Blood Pressure Source [Right Arm] 02 Sat by Pulse Oximetry 98 97 Oxygen Delivery Method Room Air Room Air Orders (Tests/Meds): ED MEDICATIONS Discontinued Medications Generic Name Dose Route Start Last Admin Trade Name Freq PRN Reason Stop Dose Admin Hydrocodone Bitart/Acetaminophen 1 tab 01/16/24 06:19 01/16/24 06:26 Hydrocodone/Apap 5/325 Mg Tablet PO 01/16/24 06:20 1 tab ONCE ONE Administration Ibuprofen 800 mg 01/16/24 07:35 01/16/24 07:42 Ibuprofen 800 Mg Tablet PO 01/16/24 07:36 Not Given ONCE ONE Ibuprofen 800 mg 01/16/24 07:40 01/16/24 07:47 Ibuprofen 400 Mg Tablet PO 01/16/24 07:41 800 mg ONCE ONE Administration Lidocaine 1 each 01/16/24 06:14 01/16/24 06:26 Lidocaine 5% Transdermal Patch TP 01/16/24 06:15 1 each ONCE ONE Administration Methocarbamol 500 mg 01/16/24 06:14 01/16/24 06:26 Methocarbamol 500mg Tablet PO 01/16/24 06:15 500 mg ONCE ONE Administration Oxycodone HCl 5 mg 01/16/24 07:29 01/16/24 07:39 Oxycodone 5mg Immediate Release Tablet PO 01/16/24 07:30 5 mg ONCE ONE Administration ORDERS Category Date Time Status CT cervical spine wo con Stat Cat Scan 01/16/24 06:[address] elbow LT wo con Stat Cat Scan 01/16/24 07:[address] head/brain wo con Stat Cat Scan 01/16/24 06:13 Completed Elbow XR left 2 views [XR elbow LT 2V] Stat Exams 01/16/24 06:13 Taken Forearm XR left 2 views [XR forearm LT 2V] Stat Exams 01/16/24 06:13 Taken Humerus XR left [XR humerus LT] Stat Exams 01/16/24 07:02 Taken Shoulder XR left minimum 2 views [XR shoulder LT min 2V Exams 01/16/24 07:07 Taken ] Stat Medical Decision Narrative: In summary, this 63-year-old female presents to the emergency department today with left upper extremity pain, right-sided neck muscle spasm, right-sided head pain after fall in the setting of already known left radial head fracture which is a comorbidity of current condition along with her history of urinary tract infections, pancreatitis, TIA, all of which are comorbidities and increase her overall morbidity. On initial evaluation patient is hemodynamically stable, afebrile, GCS 15, no focal neurologic deficit, neurovascularly intact throughout, tenderness to palpation with swelling of the left elbow, range of motion limited secondary to pain, patient also has tenderness of the right cervical paraspinal muscles with muscle spasm, no midline tenderness, small hematoma on the right parietal occipital scalp without skull deformity. Differential diagnosis includes but is not limited to intracranial bleed, midline shift, cervical spine injury, skull fracture, worsening elbow fracture, further displacement or dislocation. Based on these concerns, I ordered CT and x-ray imaging. Patient received hydrocodone, methocarbamol, lidocaine patch for treatment. No labs are necessary at this time. Review of office visit with Nena Antonio from January 09 demonstrates patient was seen for neck muscle spasm and was given follow-up for magnesium infusion. Imaging pending at the time of physician handoff. Patient handed off to Dr. Snyder for continued management and disposition. <Marko Snyder MD - Last Filed: 01/16/24 08:39> Vital Signs: 01/16/24 05:55 01/16/24 06:07 01/16/24 06:30 Temperature 97.5 F L Temperature Source Oral Pulse Rate 58 L 81 Pulse Rate [Right] 82 Respiratory Rate 18 18 18 Blood Pressure 158/93 H 137/84 Blood Pressure [Right Arm] 158/93 H Blood Pressure Mean [Right Arm] 114 Blood Pressure Source [Right Arm] Automatic Cuff 02 Sat by Pulse Oximetry 98 97 98 Oxygen Delivery Method Room Air Room Air 01/16/24 07:30 01/16/24 08:00 Temperature Temperature Source Pulse Rate 79 86 Pulse Rate [Right] Respiratory Rate Blood Pressure 128/75 152/80 H Blood Pressure [Right Arm] Blood Pressure Mean [Right Arm] Blood Pressure Source [Right Arm] 02 Sat by Pulse Oximetry 98 97 Oxygen Delivery Method Room Air Room Air Orders (Tests/Meds): ED MEDICATIONS Discontinued Medications Generic Name Dose Route Start Last Admin Trade Name Freq PRN Reason Stop Dose Admin Hydrocodone Bitart/Acetaminophen 1 tab 01/16/24 06:19 01/16/24 06:26 Hydrocodone/Apap 5/325 Mg Tablet PO 01/16/24 06:20 1 tab ONCE ONE Administration Ibuprofen 800 mg 01/16/24 07:35 01/16/24 07:42 Ibuprofen 800 Mg Tablet PO 01/16/24 07:36 Not Given ONCE ONE Ibuprofen 800 mg 01/16/24 07:40 01/16/24 07:47 Ibuprofen 400 Mg Tablet PO 01/16/24 07:41 800 mg ONCE ONE Administration Lidocaine 1 each 01/16/24 06:14 01/16/24 06:26 Lidocaine 5% Transdermal Patch TP 01/16/24 06:15 1 each ONCE ONE Administration Methocarbamol 500 mg 01/16/24 06:14 01/16/24 06:26 Methocarbamol 500mg Tablet PO 01/16/24 06:15 500 mg ONCE ONE Administration Oxycodone HCl 5 mg 01/16/24 07:29 01/16/24 07:39 Oxycodone 5mg Immediate Release Tablet PO 01/16/24 07:30 5 mg ONCE ONE Administration ORDERS Category Date Time Status CT cervical spine wo con Stat Cat Scan 01/16/24 06:[address] elbow LT wo con Stat Cat Scan 01/16/24 07:[address] head/brain wo con Stat Cat Scan 01/16/24 06:13 Completed Elbow XR left 2 views [XR elbow LT 2V] Stat Exams 01/16/24 06:13 Taken Forearm XR left 2 views [XR forearm LT 2V] Stat Exams 01/16/24 06:13 Taken Humerus XR left [XR humerus LT] Stat Exams 01/16/24 07:02 Taken Shoulder XR left minimum 2 views [XR shoulder LT min 2V Exams 01/16/24 07:07 Taken ] Stat Medical Decision Narrative: In summary, this 63-year-old female presents to the emergency department today with left upper extremity pain, right-sided neck muscle spasm, right-sided head pain after fall in the setting of already known left radial head fracture which is a comorbidity of current condition along with her history of urinary tract infections, pancreatitis, TIA, all of which are comorbidities and increase her overall morbidity. On initial evaluation patient is hemodynamically stable, afebrile, GCS 15, no focal neurologic deficit, neurovascularly intact throughout, tenderness to palpation with swelling of the left elbow, range of motion limited secondary to pain, patient also has tenderness of the right cervical paraspinal muscles with muscle spasm, no midline tenderness, small hematoma on the right parietal occipital scalp without skull deformity. Differential diagnosis includes but is not limited to intracranial bleed, midline shift, cervical spine injury, skull fracture, worsening elbow fracture, further displacement or dislocation. Based on these concerns, I ordered CT and x-ray imaging. Patient received hydrocodone, methocarbamol, lidocaine patch for treatment. No labs are necessary at this time. Review of office visit with Nena Antonio from January 09 demonstrates patient was seen for neck muscle spasm and was given follow-up for magnesium infusion. Imaging pending at the time of physician handoff. Patient handed off to Dr. Snyder for continued management and disposition. Lillian: I assumed primary responsibility for this patient after signout from previous physician. On my evaluation, patient in moderate to severe pain. Given oxycodone. Neurovascularly intact left upper extremity, but severe pain about left elbow. X-rays performed elbow and forearm, I added an shoulder. No shoulder abnormality, but patient does have fractured and displaced distal humerus. CT of left elbow was ordered. I contacted orthopedics and they recommended splint in place with posterior long-arm splint as well as CT elbow. Patient also has a follow-up today around 10:30 AM with orthopedics, so was encouraged to keep this. Posterior long-arm splint was placed and patient discharged with outpatient orthopedic follow-up for surgical planning. Because patient at baseline without signs or symptoms of clinical decompensation, deemed appropriate for discharge. Results were relayed to patient who voiced understanding and were agreeable to outpatient management and follow up. I discussed my clinical impression with patient and answered all questions. At this time, the evidence for any other entities in the differential is insufficient to warrant any further testing or ED observation. This was explained as well. Advisory was given that persistent or worsening symptoms require further evaluation. I confirmed the understanding of this discussion. Procedures <Marko Snyder MD - Last Filed: 01/16/24 08:39> Orthopedic Splinting/Casting Injury #1: Side: left Upper Extremity Injury Location: elbow Upper Extremity Immobilizer: posterior splint Post Cast/Splinting Neuro Status: intact and no change Post Cast/Splinting Vasc Status: intact and no change Critical Care <Felicitas Lazcano MD - Last Filed: 01/16/24 06:30> Critical Care Time Critical Care Time: No
[2024-01-16] MEDS: HYDROCODONE/APAP 5/325 MG TABLET 1 TAB PO (06:26)
[2024-01-16] MEDS: LIDOCAINE 5% TRANSDERMAL PATCH 1 EACH TP (06:26)
[2024-01-16] MEDS: METHOCARBAMOL 500MG TABLET 500 MG PO (06:26)
--- NOTE | 2024-01-16 07:02 | XR_ITS ---
FINAL REPORT CLINICAL HISTORY: fall FINDINGS: Left humerus Three views were obtained. There is an intercondylar fracture of the distal humerus with 5 mm of anterior displacement of the distal fracture fragment. There is soft tissue swelling. IMPRESSION: Fracture as above. Reviewed, Interpreted and Dictated by Charles Wu III, MD Transcribed by Cassandra Burgos Authenticated and [facility]
--- NOTE | 2024-01-16 07:07 | XR_ITS ---
FINAL REPORT CLINICAL HISTORY: fall FINDINGS: Left shoulder Three views were obtained. There is no acute fracture or dislocation. There is mild AC joint degenerative change. No soft tissue abnormality is identified. IMPRESSION: No acute process. Reviewed, Interpreted and Dictated by Charles Wu III, MD Transcribed by Cassandra Burgos Authenticated and . [facility]
--- NOTE | 2024-01-16 07:21 | PC.NURSE ---
pt arrived back to room
--- NOTE | 2024-01-16 07:35 | CT_ITS ---
FINAL REPORT CLINICAL HISTORY: surgical planning COMPARISON: Plain films dated 01/16/2024 FINDINGS: CT LEFT ELBOW: There is a transverse intercondylar fracture of the distal humerus. There is anterior displacement of the distal fracture fragment with overlapping. The fracture is minimally comminuted along its lateral aspect. The radius and ulna appear intact without evidence of subluxation or dislocation. There is a moderate joint effusion or hemarthrosis present, along with soft tissue swelling. IMPRESSION: Transverse intercondylar fracture of the distal humerus as described above. Reviewed, Interpreted and Dictated by Charles Wu III, MD Transcribed by Franci Velazco Authenticated and . [facility]
[2024-01-16] MEDS: OXYCODONE 5MG IMMEDIATE RELEASE TABLET 5 MG PO (07:39)
[2024-01-16] MEDS: IBUPROFEN 400 MG TABLET 800 MG PO (07:47)
== END 2024-01-16 09:00 | disposition home or self-care (01) ==
PROVIDERS: Emergency Provider Emergency Medicine; PCP Nurse Practitioner Family
DX: S42.402A Unspecified fracture of lower end of left humerus, initial encounter for closed fracture (principal); M62.838 Other muscle spasm; M25.522 Pain in left elbow; M54.2 Cervicalgia; W19.XXXA Unspecified fall, initial encounter; F17.210 Nicotine dependence, cigarettes, uncomplicated
CPT/HCPCS: 29125; 70450; 72125; 73030; 73060; 73070; 73090; 73200; 99285

== ENCOUNTER 2024-01-22 07:31 | Day surgery (SDC) | payer MEDICARE, SELFPAY ==
[2024-01-20 12:52] VITALS: BMI 16.5
[2024-01-22] VITALS (8 sets, daily range): BP systolic 113–141; BP diastolic 56–81; PULSE 75–88; RESP 16–25; TEMP 36.3–37.2; O2SAT 91–100
[2024-01-22] MEDS: LACTATED RINGERS 1000ML 1,000 ML 25 ML IV (08:18)
--- NOTE | 2024-01-22 09:28 | P.PNANES_ITS ---
[facility] Disclaimer: The information contained in this section may have been updated after the patient was seen, as this information can be updated by other users. Medical History Nausea Urinary tract infection Oral candidiasis Rib pain on left side Acute pancreatitis RUQ abdominal pain Presence of pancreatic duct stent Pancreatic disease Constipation Lower abdominal pain Neuropathy Depression Acute cystitis without hematuria Abdominal pain Abnormal electrocardiogram [ECG] [EKG] Dyspnea Tobacco dependence syndrome History of suicide attempt Mood disorder Tobacco abuse Marijuana abuse Multiple lacunar infarcts History of syncope Elevated blood pressure reading Bradycardia Memory loss Encephalopathy Contusion, hip Syncope and collapse SIRS (systemic inflammatory response syndrome) Gastroesophageal reflux disease Closed right hip fracture Hip fracture Surgical History History of repair of both hip joints History of appendectomy History of laparoscopic cholecystectomy History of hysterectomy History of tonsillectomy History of hip replacement History of aortic valve replacement History of aortic valve replacement with porcine valve Family History Other Diabetes Hypertension Stroke Social History Smoking Status: Current every day smoker tobacco type: cigarettes packs per day: 1 second hand exposure: Yes alcohol intake: never substance use type: other current occupational status: retired Travel in the last 8 weeks: None household members: family and children housing: house current occupational exposures/hazards: No caffeine: Yes [facility] Anesthesia Checklist Patient Identification Patient Identification: Arm Band and Verbal (Name & ) Structural Data Admitted From: Home Planned Operative Procedure/s: ORIF distal humerus Consent for Planned Operative Procedure(s) Verified: Yes NPO Status Verified Time NPO: 00:00 Chart Verification Results Verified: CBC and BMP Additional verifications Anesthesia Reactions: No Hx Blood Transfusions: Yes Blood Transfusion Reaction: No Airway Assessment Mallampati Score:: Class I C-Spine Mobility Assessed: Yes TMJ Mobility Assessed: Yes Dentition: Edentulous Neurological Assessment Level of Consciousness: Awake Hx Seizures: No Numbness or tingling in extremities: No Anesthesia Plan Anesthesia Risk discussed: Yes Anesthesia Plan: Verified ASA Class: III Anesthesia Type: General w/block
[2024-01-22] MEDS: 0.9 % SODIUM CHLORIDE 50 ML IV (10:51)
--- NOTE | 2024-01-22 14:03 | P.PNANES_ITS ---
[facility] Anesthesia Record Part I Anesthesia Record I Intake, IV Amount: 1,000 Hydration: Adequate Estimated blood loss (mL): 25 Urine output (mL): 0 Blood Pressure: 141/81 SaO2: 92 Pulse Rate: 75 Airway Patency: Patent Respiratory Rate: 22 Temperature: 98.9 F Patient is:: Awake Stable to PACU at:: 13:55
--- NOTE | 2024-01-22 14:05 | XR_ITS ---
FINAL REPORT CLINICAL HISTORY: ORIF DISTAL HUMERUS LT fluoro time: .59 2.23 mGy FINDINGS: FLUOROSCOPY LESS THAN 1 HOUR HISTORY: Fluoroscopy guidance. Fluoroscopic guidance was provided for ORIF of the distal left humerus. 3 spot films were obtained. A total of 0.59 minutes of fluoroscopy time were used. Total DAP: 2.23 mGy IMPRESSION: As above. Reviewed, Interpreted and Dictated by Adalid Salamanca MD Transcribed by Adelina Martinez Authenticated and [facility]
--- NOTE | 2024-01-22 14:09 | P.OP_ITS ---
Date of procedure: 01/22/24 Pre-op Diagnosis:: Left distal humerus fracture extra-articular Post-op Diagnosis:: Same Procedure performed:: Open reduction internal fixation left distal humerus fracture Surgeon:: Sigifredo Spann DO INSTRUMENT OPERATOR:: Xenia Mccullough Anesthesia: GETA and regional Estimated blood loss (mL): 50 Clinical Note:: Implants Synthes distal humeral plating system posterior lateral plate Operative findings:: Extra-articular distal humerus fracture Operative note:: Patient was identified preoperatively. Left elbow marked with yes my initials. Underwent a block with anesthesia. Transferred operative suite. Placed upon the operating bed. General anesthesia administered airway secured. Patient was then placed in a lateral position with a beanbag with all bony prominences well-padded a blanket was used for securing the fractured elbow distal humerus away from bed to allow x-ray. Left upper extremity then prepped and draped normal sterile fashion. Once prepped and draped final operative timeout performed to identify proper patient procedure and extremity. Everyone involved the case agreed. No counter indications to beginning. Did receive pr eoperative antibiotics. Marking pen was used to make plan incision posterior on the elbow and distal humerus. Curvilinear incision was made to the lateral aspect of the olecranon. Skin knife is used to incise through skin meticulous electrocautery was used for hemostasis. Soft tissue dissection was taken down triceps fascia was split and retracted. Extra-articular fracture allowed for triceps split approach lateral triceps split was taken retractors were placed placed subperiosteal plane was maintained throughout the procedure. Dissection was taken down to the fracture which was flexed in nature. Dissection was taken down freer elevator dominguez elevator was used to reduce the fracture. X-ray was brought into identify reduction of the fracture and K wire was placed for pulmonary fixation. Plate was selected from the Synthes extra-articular plates and a posterior lateral plate was selected. Plate was secured to the bone with cortical screw and then distal locking screws were placed across the fracture to give good fixation. Care was taken not to violate the radiocapitellar joint. Additional screws were placed in the shaft this gave good fixation the elbow was ranged there was no impingement on the olecranon she had full passive range of motion full pronation supination without impingement. Fixation was identified on the AP and lateral views to found to be good reduction. Irrigation of the wound was performed. The K wires were removed. Irrigation repeated. The triceps repaired deep with Vicryl triceps fascia repaired subcutaneous closed with 2-0 Vicryl 3-0 nylon to close the skin sterile dressing was placed Well-padded posterior splint was then placed wrap with Mann bandage placed in a sling Patient waken anesthesia taken recovery in stable condition. Condition: stable Disposition: PACU Complications:: None apparent
--- NOTE | 2024-01-24 08:17 | EXP.ANES.II ---
[facility] Anesthesia Record Part II Anesthesia Record Part II Discharge Time: 13:55 Destination: [facility] PACU nurse assessment reviewed?: Yes Patient Condition:: Good Anesthesia Complications:: None Swallowing reflex intact?: Yes Airway Patency: Patent Cyanosis?: No Blood Pressure: 113/58 SaO2: 98 Respiratory Rate: 12 Pulse Rate: 76 Temperature: 98 F Mental Status: Alert & Oriented Pain level:: 0 Nausea and/or vomitting:: None Intake, IV Amount: 1,500 Hydration: Adequate
[2024-01-24 08:19] VITALS: BP 113/58; PULSE 76; RESP 12; TEMP 36.6; O2SAT 98
== END 2024-01-22 14:58 | disposition home or self-care (01) ==
PROVIDERS: PCP Nurse Practitioner Family; Visit Provider Orthopaedic Surgery
PROC: (CPT 24586; principal; 2024-01-22 09:15)
DX: S42.492A Other displaced fracture of lower end of left humerus, initial encounter for closed fracture (principal); W10.8XXA Fall (on) (from) other stairs and steps, initial encounter; F17.210 Nicotine dependence, cigarettes, uncomplicated; Z79.899 Other long term (current) drug therapy; R29.6 Repeated falls
CPT/HCPCS: 24586; 73060; 76000; 96374; C1713; C1769; C1776; J2405; J7120

== ENCOUNTER 2024-02-06 13:04 | Outpatient (CLI) | payer MEDICARE, SELFPAY ==
--- NOTE | 2024-02-06 13:07 | XR_ITS ---
FINAL REPORT CLINICAL HISTORY: humerus fx COMPARISON: 01/22/2024 FINDINGS: LEFT HUMERUS 2 views were obtained. There is no acute fracture or dislocation. There are interval postoperative changes of ORIF of the distal humerus with screw plate and multiple screws present. Visualized joint spaces are normally aligned. Soft tissues are unremarkable. IMPRESSION: No acute bony abnormality. Reviewed, Interpreted and Dictated by Charles Wu III, MD Transcribed by Selma Morfin Authenticated and [facility]
== END 2024-02-06 23:59 | disposition home or self-care (01) ==
LOC: RAD 13:05
PROVIDERS: PCP Nurse Practitioner Family; Visit Provider Orthopaedic Surgery
DX: M79.622 Pain in left upper arm; S42.492A Other displaced fracture of lower end of left humerus, initial encounter for closed fracture
CPT/HCPCS: 73060

== ENCOUNTER 2024-02-20 13:53 | Outpatient (CLI) | payer MEDICARE, SELFPAY ==
--- NOTE | 2024-02-20 13:56 | XR_ITS ---
FINAL REPORT CLINICAL HISTORY: Lt Humerus fx FINDINGS: Two views show no evidence of an acute, displaced fracture or dislocation of the visualized bony architecture. The joint spaces appear normal. IMPRESSION: Unremarkable exam. Reviewed, Interpreted and Dictated by Mat Brady MD Transcribed by Selma Morfin Authenticated and [facility]
== END 2024-02-20 23:59 | disposition home or self-care (01) ==
LOC: RAD 13:54
PROVIDERS: PCP Nurse Practitioner Family; Visit Provider Orthopaedic Surgery
DX: M79.622 Pain in left upper arm; S42.492A Other displaced fracture of lower end of left humerus, initial encounter for closed fracture
CPT/HCPCS: 73060

== ENCOUNTER 2024-02-20 15:28 | Outpatient (RCR) | payer MEDICARE, SELFPAY | END 2024-02-20 16:30 | disposition home or self-care (01) | LOC: OT 15:28 | PROVIDERS: Visit Provider Orthopaedic Surgery | DX: M25.522 Pain in left elbow (principal) ==

== ENCOUNTER 2024-03-09 12:47 | Outpatient (CLI) | payer MEDICARE, SELFPAY ==
[2024-03-09 13:08] LABS: Basophils # 0.1 K/mm3 (0-0.2); Basophils % 0.9 % (0.1-2.0); Eosinophils # 0.5 K/mm3 (0.0-0.4); Eosinophils % 5.2 % (0.1-12.0); Hematocrit 31.2 % (37.0-47.0); Lymphocytes # 2.2 K/mm3 (0.7-4.5); Lymphocytes % 23.2 % (10-50); Mean Corpuscular HGB Conc 32.1 g/dL (31.8-35.4); Mean Corpuscular Hemoglobin 27.8 pg (27.0-31.2); Mean Corpuscular Volume 86.7 fl (81-99); Mean Platelet Volume 8.3 fl (7.4-10.4); Monocytes # 0.5 K/mm3 (0.1-1.0); Monocytes % 5.1 % (1.7-9.3); Neutrophils # 6.1 K/mm3 (1.8-7.8); Neutrophils % 65.6 % (37.0-80.0); Platelet Count 317 K/mm3 (142-424); White Blood Count 9.3 K/mm3 (4.8-10.8)
[2024-03-09 13:31] LABS: Erythrocyte Sedimentation Rate 57 mm/hr (0-30)
[2024-03-09 13:35] LABS: Chloride 108 mmol/L (98-107); Potassium 4.6 mmoL/L (3.5-5.1); Sodium 139 mmol/L (136-145)
[2024-03-09 13:37] LABS: Blood Urea Nitrogen 18 mg/dl (7-17); Estimated Glomerular Filt Rate 100 ml/min (>60); GFR (African American) 121 ML/MIN (>60)
[2024-03-09 13:38] LABS: Alanine Aminotransferase 11 U/L (12-78); Albumin Level 3.7 g/dl (3.5-5.0); Albumin/Globulin Ratio 1.2 (1.1-1.8); Alkaline Phosphatase 105 U/L (38-126); Anion Gap 5.6 mEq/L (5-15); Aspartate Amino Transferase 22 U/L (14-36); Bilirubin,Total 0.2 mg/dl (0.2-1.3); Calcium 9.3 mg/dl (8.4-10.2); Carbon Dioxide 30 mmol/L (22.0-30.0); Glucose 84 mg/dl (74-100); Total Protein,Serum 6.7 g/dl (6.3-8.2)
[2024-03-09 13:44] LABS: C-Reactive Protein 5.5 mg/L (0-4)
== END 2024-03-09 23:59 | disposition home or self-care (01) ==
LOC: LAB.DROPOF 12:49
PROVIDERS: PCP Nurse Practitioner Family; Visit Provider Nurse Practitioner Family
DX: D72.829 Elevated white blood cell count, unspecified (principal)
CPT/HCPCS: 80053; 85025; 85651; 86140

== ENCOUNTER 2024-03-12 09:04 | Outpatient (CLI) | payer MEDICARE, SELFPAY ==
[2024-03-12 09:36] LABS: Chloride 112 mmol/L (98-107); Sodium 139 mmol/L (136-145)
[2024-03-12 09:37] LABS: Potassium 4.7 mmoL/L (3.5-5.1)
[2024-03-12 09:39] LABS: Blood Urea Nitrogen 23 mg/dl (7-17); Estimated Glomerular Filt Rate 55 ml/min (>60); GFR (African American) 67 ML/MIN (>60)
[2024-03-12 09:40] LABS: Anion Gap 7.7 mEq/L (5-15); Calcium 9.2 mg/dl (8.4-10.2); Carbon Dioxide 24 mmol/L (22.0-30.0); Glucose 93 mg/dl (74-100)
== END 2024-03-12 23:59 | disposition home or self-care (01) ==
LOC: LAB.DROPOF 09:05
PROVIDERS: PCP Nurse Practitioner Family; Visit Provider Nurse Practitioner Family
DX: T82.6XXA Infection and inflammatory reaction due to cardiac valve prosthesis, initial encounter (principal); I38 Endocarditis, valve unspecified; K86.89 Other specified diseases of pancreas
CPT/HCPCS: 80048

== ENCOUNTER 2024-03-16 10:19 | Outpatient (CLI) | payer MEDICARE, SELFPAY ==
[2024-03-16 11:54] LABS: Basophils # 0.1 K/mm3 (0-0.2); Basophils % 1.5 % (0.1-2.0); Eosinophils # 0.4 K/mm3 (0.0-0.4); Eosinophils % 5.5 % (0.1-12.0); Hematocrit 33.4 % (37.0-47.0); Hemoglobin 10.2 g/dL (12.2-16.2); Lymphocytes # 2.1 K/mm3 (0.7-4.5); Lymphocytes % 29.6 % (10-50); Mean Corpuscular HGB Conc 30.5 g/dL (31.8-35.4); Mean Corpuscular Hemoglobin 27.4 pg (27.0-31.2); Mean Corpuscular Volume 89.8 fl (81-99); Mean Platelet Volume 8.9 fl (7.4-10.4); Monocytes # 0.4 K/mm3 (0.1-1.0); Monocytes % 5.5 % (1.7-9.3); Neutrophils % 57.8 % (37.0-80.0); Platelet Count 318 K/mm3 (142-424); Red Blood Count 3.72 M/mm3 (4.20-5.40); Red Cell Distribution Width 19.6 % (11.5-17.5)
[2024-03-16 12:35] LABS: Erythrocyte Sedimentation Rate 21 mm/hr (0-30)
[2024-03-16 12:44] LABS: Alanine Aminotransferase 12 U/L (12-78); Albumin Level 3.6 g/dl (3.5-5.0); Albumin/Globulin Ratio 1.2 (1.1-1.8); Alkaline Phosphatase 93 U/L (38-126); Anion Gap 12.1 mEq/L (5-15); Aspartate Amino Transferase 19 U/L (14-36); Bilirubin,Total 0.2 mg/dl (0.2-1.3); Blood Urea Nitrogen 23 mg/dl (7-17); Calcium 8.9 mg/dl (8.4-10.2); Carbon Dioxide 19 mmol/L (22.0-30.0); Chloride 115 mmol/L (98-107); Estimated Glomerular Filt Rate 72 ml/min (>60); GFR (African American) 87 ML/MIN (>60); Globulin 2.9 g/dL (1.3-3.2); Glucose 125 mg/dl (74-100); Potassium 4.1 mmoL/L (3.5-5.1); Sodium 142 mmol/L (136-145); Total Protein,Serum 6.5 g/dl (6.3-8.2)
[2024-03-16 12:50] LABS: C-Reactive Protein 1.1 mg/L (0-4)
== END 2024-03-16 23:59 | disposition home or self-care (01) ==
LOC: LAB.DROPOF 10:25
PROVIDERS: PCP Nurse Practitioner Family; Visit Provider Nurse Practitioner Family
DX: R53.1 Weakness (principal)
CPT/HCPCS: 80053; 85025; 85651; 86140

== ENCOUNTER 2024-03-16 11:06 | Outpatient (RCR) | payer MEDICARE, SELFPAY ==
--- NOTE | 2024-03-16 11:49 | HMH.OTOPEV ---
OT Inpatient Evaluation Rehab OT Outpatient Eval Start: 03/16/24 11:34 Freq: Status: Active Protocol: [facility] 03[facility]16/24 11:[facility] (Rec: 03/16/24 11:49 [facility] [id number]) E-signed By Bettie Pablo, OT Outpatient Therapy Subjective History Subjective History Pt is a 64 year old female who reports to therapy for initial evaluation to Left elbow. Pt reports she had two falls, one on January 15 and another on January 17 resulting in a nondisplaced lateral radial head fx and left distal humerus fracture extra- articular. Pt required an open reduction internal fixation left distal humerus fracture on January 21. Pt currently demonstrates with decreased AROM and strength at left elbow. Pt is right hand dominant, but left hand building appraiser is also declined. Pt will continue to be seen in order to address all deficits. STG L hand building appraiser strength: 25 lbs LTG L hand building appraiser strength: 30 lbs New diagnosis of cancer in past 12 No months? Chief Complaint Pain,Stiff,Weakness,Decreased Union Representative Strength Symptom Type Ache,Throb,Sharp,Dull Symptoms Relieved By Rest/Positioning Symptoms Aggravated By Physical Activity,Lifting Prior Functional Limitations None Current Functional Limitations Reaching,Lifting,Housework, Dressing,Driving,Sleeping, Recreation Activity,Walking Symptom Description Constant but Variable Level of pain today (0-10) 6 Pain scale - at its best (0-10) 6 Pain scale - at its worst (0-10) 10 Shoulder/Elbow Eval Shoulder Objective Measurements Elbow Objective Measurements Elbow ROM Left Elbow Extension Active Range of Motion ( -20 degrees degrees) Elbow Flexion Active Range of Motion ( 105 degrees degrees) Elbow Pronation of Forearm Range of 90 degrees Motion (degrees) Elbow Supination of Forearm Range of 85 degrees Motion (degrees) Elbow MMT Elbow Flexion Strength Grade 3 Fair Elbow Extension Strength Grade 3 Fair Supination Strength Grade 3 Fair Pronation Strength Grade 3 Fair Wrist/Hand Eval Union Representative/Pinch Strength Left Union Representative Strength Measurement (lbs) 18 Right Union Representative Strength Measurement (lbs) 35 QuickDASH Activities Please rate your ability to do the following activities in the last week by selecting the number below the appropriate response. 1. Open a tight or new jar. Severe difficulty 2. Do heavy bellows filler (e.g., wash Unable hunt, floors). 3. Carry a shopping bag or briefcase. Severe difficulty 4. Wash your back. Unable 5. Use a knife to cut food. Severe difficulty 6. Recreational activities in which you Unable take some force or impact through your arm, shoulder, or hand (e.g., golf, hammering, tennis, etc.). 7. During the past week, to what extent Quite a bit has your arm, shoulder or hand problem interfered with your normal social activities with family, friends, neighbors or groups? 8. During the past week, were you Very limited limited in your work or other regular daily activites as a result of your arm, shoulder or hand problem? 9. Arm, shoulder or hand pain. Severe 10. Tingling (pins and needles) in your Moderate arm, shoulder or hand. 11. During the past week, how much Mild difficulty difficulty have you had sleeping because of the pain in your arm, shoulder or hand? Quick DASH 44 OT Outpatient Assessment Impairments Problems/Impairments Palpation Tenderness,Impaired Range of Motion,Impaired Strength,Impaired Endurance, Impaired Lifting,Impaired Household Care,Subjective C/O Pain Prognosis Rehab Potential Good Clinical Impression Consistent with Diagnosis Yes Short Term Goals Number of Weeks 4 Increase Range of Motion Yes: Flex: 120 Ext: -10 Sup: 90 Increase Strength Yes: 3+/5 throughout left elbow Increase Endurance Yes: Pt will tolerate L elbow exercises for ~15 min prior to rest. Decrease Subjective C/O Pain Yes: 6/10 at worst Patient to be Ind w/ HEP Yes: AROM/AAROM exercises Improve Quick Dash Score Yes: Activities: 35 or below Entertainer & Comic Goals Number of Weeks 8 Increase Range of Motion Yes: Flex: 135 degrees Ext: - 10 degrees Sup: 90 degrees Increase Strength Yes: 4/5 throughout left elbow Increase Endurance Yes: Pt will tolerate L elbow exercises for ~20 minutes prior to rest. Decrease Subjective C/O Pain Yes: 3/10 at worst Improve Quick Dash Score Yes: Activities: 25 or below Outpatient Therapy Plan of Care Treatment Plan May Include Therapeutic Exercise Including Home Yes Exercise Program Manual Therapy Techniques Yes Neuromuscular Re-education Yes Therapeutic Activities to Return to Yes Previous Functional/Work Level Thermal Modalities Yes Electrical Stimulation Yes Ultrasound/Phonophoresis Yes Iontophoresis Yes Orthotics/Bracing/Splinting Yes Massage Yes Eval/Re-Eval Yes Frequency Times per week 2 Duration Number of Weeks 6 Addendums This patient is a candidate for social No or vocational rehab? Patient/Guardian verbally acknowledges Yes understanding of treatment program and consents to further treatment? Patient/Guardian verbally acknowledges Yes understanding of diagnosis, prognosis and goals for treatment? Eval Complexity OT Charge 17325 - Moderate Complexity PHYSICIAN CERTIFICATION: I certify the specified therapy services for Caitlyn Mcbride are required, authorized, and reviewed every 30 days.
== END 2024-03-16 12:15 | disposition home or self-care (01) ==
LOC: OT 11:06
PROVIDERS: Visit Provider Nurse Practitioner Family
DX: M25.522 Pain in left elbow (principal); S52.122A Displaced fracture of head of left radius, initial encounter for closed fracture
CPT/HCPCS: 97166

== ENCOUNTER 2024-03-19 10:36 | Outpatient (CLI) | payer MEDICARE, SELFPAY ==
[2024-03-19 12:21] LABS: Alanine Aminotransferase 10 U/L (12-78); Albumin Level 3.7 g/dl (3.5-5.0); Albumin/Globulin Ratio 1.3 (1.1-1.8); Alkaline Phosphatase 89 U/L (38-126); Anion Gap 11.1 mEq/L (5-15); Aspartate Amino Transferase 18 U/L (14-36); Bilirubin,Total 0.2 mg/dl (0.2-1.3); Blood Urea Nitrogen 24 mg/dl (7-17); Calcium 9.4 mg/dl (8.4-10.2); Carbon Dioxide 20 mmol/L (22.0-30.0); Chloride 113 mmol/L (98-107); Estimated Glomerular Filt Rate 84 ml/min (>60); GFR (African American) 101 ML/MIN (>60); Globulin 2.8 g/dL (1.3-3.2); Glucose 198 mg/dl (74-100); Potassium 4.1 mmoL/L (3.5-5.1); Sodium 140 mmol/L (136-145); Total Protein,Serum 6.5 g/dl (6.3-8.2)
[2024-03-19 12:26] LABS: C-Reactive Protein 1.7 mg/L (0-4)
== END 2024-03-19 23:59 | disposition home or self-care (01) ==
LOC: LAB 10:38
PROVIDERS: PCP Nurse Practitioner Family; Visit Provider Nurse Practitioner Family
DX: I33.0 Acute and subacute infective endocarditis (principal)
CPT/HCPCS: 80053; 86140

== ENCOUNTER 2024-03-19 12:12 | Outpatient (CLI) | payer MEDICARE, SELFPAY ==
--- NOTE | 2024-03-19 12:17 | XR_ITS ---
FINAL REPORT CLINICAL HISTORY: left humerus fx FINDINGS: LEFT HUMERUS 2 views were obtained. There is no acute fracture or dislocation. There is ORIF of the distal humerus. Hardware is intact. Visualized joint spaces are normally aligned. Soft tissues are unremarkable. IMPRESSION: No acute bony abnormality. ORIF of the distal humerus without hardware complication. Reviewed, Interpreted and Dictated by Gwendolyn Wright MD Transcribed by Selma Morfin Authenticated and [facility]
== END 2024-03-19 23:59 | disposition home or self-care (01) ==
LOC: RAD 12:15
PROVIDERS: PCP Nurse Practitioner Family; Visit Provider Orthopaedic Surgery
DX: S42.302A Unspecified fracture of shaft of humerus, left arm, initial encounter for closed fracture (principal); Z79.899 Other long term (current) drug therapy
CPT/HCPCS: 73060; 80053; 86140

== ENCOUNTER 2024-03-23 11:27 | Outpatient (CLI) | payer MEDICARE, SELFPAY ==
[2024-03-23 11:47] LABS: Basophils # 0.1 K/mm3 (0-0.2); Basophils % 0.9 % (0.1-2.0); Eosinophils # 0.5 K/mm3 (0.0-0.4); Eosinophils % 8.6 % (0.1-12.0); Hematocrit 34.8 % (37.0-47.0); Hemoglobin 10.8 g/dL (12.2-16.2); Lymphocytes # 1.7 K/mm3 (0.7-4.5); Mean Corpuscular HGB Conc 30.9 g/dL (31.8-35.4); Mean Corpuscular Volume 90.5 fl (81-99); Mean Platelet Volume 8.5 fl (7.4-10.4); Monocytes # 0.3 K/mm3 (0.1-1.0); Monocytes % 4.7 % (1.7-9.3); Neutrophils # 3.6 K/mm3 (1.8-7.8); Neutrophils % 58.6 % (37.0-80.0); Platelet Count 249 K/mm3 (142-424); Red Blood Count 3.84 M/mm3 (4.20-5.40); Red Cell Distribution Width 19.7 % (11.5-17.5); White Blood Count 6.2 K/mm3 (4.8-10.8)
[2024-03-23 12:13] LABS: Chloride 113 mmol/L (98-107); Potassium 4.7 mmoL/L (3.5-5.1); Sodium 139 mmol/L (136-145)
[2024-03-23 12:15] LABS: Blood Urea Nitrogen 19 mg/dl (7-17); Estimated Glomerular Filt Rate 100 ml/min (>60); GFR (African American) 121 ML/MIN (>60)
[2024-03-23 12:16] LABS: Alanine Aminotransferase 10 U/L (12-78); Albumin Level 3.4 g/dl (3.5-5.0); Albumin/Globulin Ratio 1.2 (1.1-1.8); Alkaline Phosphatase 93 U/L (38-126); Anion Gap 5.7 mEq/L (5-15); Aspartate Amino Transferase 21 U/L (14-36); Calcium 9.2 mg/dl (8.4-10.2); Carbon Dioxide 25 mmol/L (22.0-30.0); Globulin 2.9 g/dL (1.3-3.2); Glucose 86 mg/dl (74-100); Total Protein,Serum 6.3 g/dl (6.3-8.2)
[2024-03-23 12:19] LABS: Bilirubin,Total 0.1 mg/dl (0.2-1.3)
[2024-03-23 12:25] LABS: C-Reactive Protein 7.6 mg/L (0-4)
[2024-03-23 12:32] LABS: Erythrocyte Sedimentation Rate 59 mm/hr (0-30)
== END 2024-03-23 23:59 | disposition home or self-care (01) ==
LOC: LAB.DROPOF 11:28
PROVIDERS: PCP Nurse Practitioner Family; Visit Provider Nurse Practitioner Family
DX: I33.0 Acute and subacute infective endocarditis (principal)
CPT/HCPCS: 80053; 85025; 85651; 86140

== ENCOUNTER 2024-03-26 10:58 | Outpatient (CLI) | payer MEDICARE, SELFPAY ==
[2024-03-26 11:42] LABS: Chloride 109 mmol/L (98-107); Potassium 4.6 mmoL/L (3.5-5.1); Sodium 141 mmol/L (136-145)
[2024-03-26 11:44] LABS: Alanine Aminotransferase 9 U/L (12-78); Aspartate Amino Transferase 19 U/L (14-36); Blood Urea Nitrogen 16 mg/dl (7-17); Estimated Glomerular Filt Rate 100 ml/min (>60); GFR (African American) 121 ML/MIN (>60)
[2024-03-26 11:45] LABS: Albumin Level 3.6 g/dl (3.5-5.0); Albumin/Globulin Ratio 1.3 (1.1-1.8); Alkaline Phosphatase 98 U/L (38-126); Anion Gap 8.6 mEq/L (5-15); Bilirubin,Total 0.2 mg/dl (0.2-1.3); Calcium 9.2 mg/dl (8.4-10.2); Carbon Dioxide 28 mmol/L (22.0-30.0); Globulin 2.8 g/dL (1.3-3.2); Glucose 78 mg/dl (74-100); Total Protein,Serum 6.4 g/dl (6.3-8.2)
[2024-03-26 19:22] LABS: C-Reactive Protein 2.9 mg/L (0-4)
== END 2024-03-26 23:59 | disposition home or self-care (01) ==
LOC: LAB.DROPOF 11:00
PROVIDERS: PCP Nurse Practitioner Family; Visit Provider Nurse Practitioner Family
DX: I33.0 Acute and subacute infective endocarditis (principal)
CPT/HCPCS: 80053; 86140

== ENCOUNTER 2024-03-30 10:30 | Outpatient (CLI) | payer MEDICARE, SELFPAY ==
[2024-03-30 10:41] LABS: Basophils # 0.1 K/mm3 (0-0.2); Basophils % 1.3 % (0.1-2.0); Eosinophils # 0.4 K/mm3 (0.0-0.4); Eosinophils % 7.6 % (0.1-12.0); Hematocrit 34.1 % (37.0-47.0); Hemoglobin 10.7 g/dL (12.2-16.2); Lymphocytes # 1.5 K/mm3 (0.7-4.5); Lymphocytes % 28.3 % (10-50); Mean Corpuscular HGB Conc 31.5 g/dL (31.8-35.4); Mean Corpuscular Hemoglobin 28.5 pg (27.0-31.2); Mean Corpuscular Volume 90.2 fl (81-99); Mean Platelet Volume 7.9 fl (7.4-10.4); Monocytes # 0.3 K/mm3 (0.1-1.0); Monocytes % 5.9 % (1.7-9.3); Neutrophils % 56.9 % (37.0-80.0); Platelet Count 245 K/mm3 (142-424); Red Blood Count 3.78 M/mm3 (4.20-5.40); Red Cell Distribution Width 19.7 % (11.5-17.5); White Blood Count 5.3 K/mm3 (4.8-10.8)
[2024-03-30 11:10] LABS: Erythrocyte Sedimentation Rate 23 mm/hr (0-30)
[2024-03-30 11:26] LABS: Alanine Aminotransferase 9 U/L (12-78); Albumin Level 3.5 g/dl (3.5-5.0); Albumin/Globulin Ratio 1.2 (1.1-1.8); Alkaline Phosphatase 71 U/L (38-126); Anion Gap 10.6 mEq/L (5-15); Aspartate Amino Transferase 17 U/L (14-36); Bilirubin,Total 0.2 mg/dl (0.2-1.3); Blood Urea Nitrogen 21 mg/dl (7-17); Calcium 9.3 mg/dl (8.4-10.2); Carbon Dioxide 21 mmol/L (22.0-30.0); Chloride 114 mmol/L (98-107); Estimated Glomerular Filt Rate 100 ml/min (>60); GFR (African American) 121 ML/MIN (>60); Globulin 2.9 g/dL (1.3-3.2); Glucose 107 mg/dl (74-100); Potassium 4.6 mmoL/L (3.5-5.1); Sodium 141 mmol/L (136-145); Total Protein,Serum 6.4 g/dl (6.3-8.2)
== END 2024-03-30 23:59 | disposition home or self-care (01) ==
LOC: LAB.DROPOF 10:30
PROVIDERS: PCP Nurse Practitioner Family; Visit Provider Nurse Practitioner Family
DX: I10 Essential (primary) hypertension (principal); I33.0 Acute and subacute infective endocarditis
CPT/HCPCS: 80053; 85025; 85651; 86140

== ENCOUNTER 2024-04-02 11:00 | Outpatient (CLI) | payer MEDICARE, SELFPAY ==
[2024-04-02 11:56] LABS: Anion Gap 11.2 mEq/L (5-15); Blood Urea Nitrogen 19 mg/dl (7-17); Carbon Dioxide 20 mmol/L (22.0-30.0); Chloride 115 mmol/L (98-107); Estimated Glomerular Filt Rate 100 ml/min (>60); GFR (African American) 121 ML/MIN (>60); Glucose 142 mg/dl (74-100); Potassium 4.2 mmoL/L (3.5-5.1); Sodium 142 mmol/L (136-145)
== END 2024-04-02 23:59 | disposition home or self-care (01) ==
LOC: LAB.DROPOF 11:01
PROVIDERS: PCP Nurse Practitioner Family; Visit Provider Nurse Practitioner Family
DX: I33.0 Acute and subacute infective endocarditis (principal)
CPT/HCPCS: 80048

== ENCOUNTER 2024-04-02 19:00 | Emergency (ER) | payer MEDICARE, SELFPAY ==
[2024-04-02 19:02] VITALS: BP 170/112; PULSE 77; RESP 20; TEMP 36.9; O2SAT 100; BMI 19.9
--- NOTE | 2024-04-02 19:23 | PC.NURSE ---
pt reports dizziness,weakness, and hypertension. current bp is 170/112 she is currently receiving IV antibiotics for endocarditis. spoke with the provider. pt being transferred to ER
--- NOTE | 2024-04-02 19:26 | EXP.UTC ---
Discharge Plan Disposition Patient Disposition: Still a Patient Condition: Fair Prescriptions Prescriptions: No Action lidocaine [Aspercreme (lidocaine)] 4 % adhesive patch,medicated 1 patch topical DAILYP PRN (Reason: Back Pain) pregabalin [Lyrica] 200 mg capsule 200 mg PO BID 30 Days Qty: 60 2RF gentamicin 40 mg/mL solution 40 mg IM levetiracetam 500 mg tablet PO Patient Comments: TAKE 1 TABLET BY MOUTH TWICE DAILY ceftriaxone 10 gram recon soln IM paroxetine HCl 40 mg tablet 40 mg PO DAILY 90 Days Qty: 90 1RF temazepam 15 mg capsule 15 mg PO HS 30 Days Qty: 30 2RF pantoprazole 40 mg tablet,delayed release (DR/EC) See Rx Instructions .ROUTE .COMPLEX Qty: 60 3RF Dose Instruction: TAKE 1 TABLET BY MOUTH TWICE DAILY FOR STOMACH Rx Instructions: TAKE 1 TABLET BY MOUTH TWICE DAILY FOR STOMACH Pro Fe 180 mg iron capsule 180 mg PO DAILY Qty: 30 2RF hydrocodone-acetaminophen 5-325 mg tablet 1 tab PO Q6H PRN (Reason: post op pain) Qty: 40 0RF Zenpep 25,000-79,000- 105,000 unit capsule,delayed release(DR/EC) 1 cap PO TID Qty: 90 2RF Rx Instructions: administer with meals and/or snacks ondansetron HCl 4 mg tablet 4 mg PO Q8HP PRN (Reason: nausea and vomiting) Trelegy Ellipta 100-62.5-25 mcg blister with device 1 inh inhalation DAILY Creon 24,000-76,000 -120,000 unit capsule,delayed release(DR/EC) 1 cap PO DAILY Referrals Follow up/Referrals: Betty Antonio APRN [Primary Care Provider] - See instructions Clinical Impressions Clinical Impression: Elevated blood pressure reading, Dizziness, Headache Print Language Print Language: Vietnamese Discharge ED Provider: Rani Lee [facility] [place], [place] HPI General Stated complaint: Dizziness,HBP Mode of Arrival: Ambulatory Source of Information: Patient and Relative Limitations: No Limitations Time Seen by Provider: 04/02/24 19:13 Description of Symptoms (Recalled from Triage Doc. by RN): dizziness,weakness,hypertension. HEENT Symptoms (Recalled from RN notes): Yes Resp Symptoms (Recalled from RN notes): No Skin Symptoms (Recalled from RN notes): No MS Symptoms (Recalled from RN notes): No Functional Status (Recalled from RN notes): dizziness,weakness History of Present Illness Provider Complaint: She states that her blood pressure has been elevated today and she has dizziness and headache accompanying it. She normally does not have elevated blood pressure and she does not take any antihypertension medications. She has a significant history of endocarditis (infected pig valve) that she is getting outpatient antibiotics via picc line for. She was at her infectious disease doctor at today where she began to have the headache and dizziness. She states that she was instructed to go to the ER there at , but she elected to come here instead. She denies any chest pain and abnormal shortness of breath. Related Data Home Medications ?Medication ?Instructions ?Recorded ?Confirmed lidocaine 4 % topical patch 1 patch topical DAILYP PRN Back 08/16/23 03/19/24 (Aspercreme (lidocaine)) Pain fluticasone fur. 100 mcg-umeclid 1 inh inhalation DAILY Breathing 10/16/23 03/19/24 62.5 mcg-vilant 25 mcg Problems inhalat.powder (Trelegy Ellipta) ondansetron HCl 4 mg tablet 4 mg PO Q8HP PRN nausea and 10/16/23 03/19/24 vomiting [id number] 1 cap PO DAILY 12/16/23 03/19/24 24,000-76,000-120,000 unit capsule,delayed rel (Creon) ceftriaxone 10 gram solution for IM 03/02/24 03/19/24 injection gentamicin 40 mg/mL injection 40 mg IM 03/02/24 03/19/24 solution levetiracetam 500 mg tablet mg PO 03/02/24 03/19/24 Previous Rx's ?Medication ?Instructions ?Recorded paroxetine HCl 40 mg tablet 40 mg PO DAILY Mood 90 days #90 11/12/23 tabs temazepam 15 mg capsule 15 mg PO HS Insomnia 30 days #30 12/30/23 caps pregabalin 200 mg capsule (Lyrica) 200 mg PO BID 30 days #60 caps 01/10/24 pantoprazole 40 mg tablet,delayed See Rx Instructions .Route 02/05/24 release .COMPLEX #60 tabs polysaccharide iron complex 180 mg 180 mg PO DAILY #30 caps 03/10/24 iron capsule (Pro Fe) hydrocodone 5 mg-acetaminophen 325 1 tab PO Q6H PRN post op pain #40 07/15/24 mg tablet tabs [id number]-kdynenkm-onhlgux 1 cap PO TID #90 caps 03/17/24 25,000-79,000-105,000 unit capsule,delayed rel (Zenpep) Allergies Allergy/AdvReac Type Severity Reaction Status Date / Time levofloxacin [From LEVAQUIN] Allergy Unknown SEIZURES Verified 03/19/24 12:59 Worker's Comp Is this a Worker's Comp case?: No Is this an [facility] Worker's Comp?: No Is this a [place] Worker's Comp?: No [facility] Disclaimer: The information contained in this section may have been updated after the patient was seen, as this information can be updated by other users. Medical History Nausea Urinary tract infection Oral candidiasis Rib pain on left side Acute pancreatitis RUQ abdominal pain Presence of pancreatic duct stent Pancreatic disease Constipation Lower abdominal pain Neuropathy Depression Acute cystitis without hematuria Abdominal pain Abnormal electrocardiogram [ECG] [EKG] Dyspnea Tobacco dependence syndrome History of suicide attempt Mood disorder Tobacco abuse Marijuana abuse Multiple lacunar infarcts History of syncope Elevated blood pressure reading Bradycardia Memory loss Encephalopathy Contusion, hip Syncope and collapse SIRS (systemic inflammatory response syndrome) Gastroesophageal reflux disease Closed right hip fracture Hip fracture Surgical History History of repair of both hip joints History of appendectomy History of laparoscopic cholecystectomy History of hysterectomy History of tonsillectomy History of hip replacement History of aortic valve replacement History of aortic valve replacement with porcine valve Family History Other Diabetes Hypertension Stroke Social History Smoking Status: Current every day smoker tobacco type: cigarettes packs per day: 1 second hand exposure: Yes alcohol intake: never substance use type: other current occupational status: retired Travel in the last 8 weeks: None household members: family and children housing: house current occupational exposures/hazards: No caffeine: Yes ROS Obtained: Yes All systems reviewed & no additional complaints except as documented Constitutional Constitutional: Denies chills, Denies fever(s) and Reports headache(s) Eyes Eyes: Denies eye discharge ENT Ears, Nose, Mouth, and Throat: Reports dizziness, Denies otalgia, Reports headache(s) and Denies sore throat Cardiovascular Cardiovascular: Denies chest pain Respiratory Respiratory: Denies shortness of breath, Denies chest congestion, Denies cough, Denies stridor and Denies wheezing Gastrointestinal Gastrointestingal: Denies nausea or vomiting Musculoskeletal Musculoskeletal: Reports system reviewed and no additional complaints, except as documented and Denies arthralgias Integumentary/Breasts Skin/Breast: Denies rash Neurologic Neurologic: Reports as per HPI, Reports dizziness, Reports headache(s) and Denies paresthesias Allergic/Immunologic Allergic/Immunologic: Denies wheezing Physical Exam General General appearance: alert and in no apparent distress Head Head exam: atraumatic, normocephalic and normal inspection Eye Eye exam: Present normal appearance, PERRL and EOMI ENT ENT exam: Present normal exam, normal oropharynx, mucous membranes moist, TM's normal bilaterally and normal external ear exam Neck Neck exam: Present normal inspection, full ROM and trachea midline; Absent meningismus or lymphadenopathy Chest Chest inspection: Present normal inspection and symmetric chest wall rise; Absent tenderness Respiratory Respiratory exam: Present normal lung sounds bilaterally; Absent respiratory distress Cardiovascular Cardiovascular exam: Present regular rate and normal rhythm; Absent JVD Abdominal Exam Abdominal exam: Present soft and normal bowel sounds; Absent distention, tenderness or guarding Extremities Exam Extremities exam: Present normal inspection, full ROM and normal capillary refill; Absent calf tenderness Back Exam Back exam: Present normal inspection; Absent tenderness Neurological Exam Neurological exam: Present alert and oriented X3 Psychiatric Psychiatric exam: Present normal affect and normal mood Skin Skin exam: Present warm, dry, intact and normal color Lymphatic Lymphatic Findings: no adenopathy Other Other exam information: She has a right AC picc line noted. Medical Decision Making Medical Records Medical records reviewed: No I reviewed the patient's medical records. [place] Inquiry Pt receiving controlled substance: No Vital Signs: 04/02/24 19:02 Temperature 98.5 F Temperature Source Oral Pulse Rate [Right] 77 Respiratory Rate 20 Blood Pressure [Right Arm] 170/112 H Blood Pressure Mean [Right Arm] 131 02 Sat by Pulse Oximetry 100 Oxygen Delivery Method Room Air Medical Decision Narrative: She was transferred to the ER due to her current symptoms and her significant medical history.
--- NOTE | 2024-04-02 19:40 | CT_ITS ---
PROCEDURE INFORMATION: Exam: CTA Chest With Contrast Exam date and time: 04/02/2024 8:07 PM Age: 64 years old Clinical indication: Other: Vertigo; Additional info: Endocarditis, vertigo TECHNIQUE: Imaging protocol: Computed tomographic angiography of the chest with contrast. Exam focused on the arteries. 3D rendering (Not supervised by radiologist): MIP and/or 3D reconstructed images were created by the technologist. Total images: 727 Radiation optimization: All CT scans at this facility use at least one of these dose optimization techniques: automated exposure control; mA and/or kV adjustment per patient size (includes targeted exams where dose is matched to clinical indication); or iterative reconstruction. Contrast material: ISOVUE; Contrast volume: 70 ml; Contrast route: INTRAVENOUS (IV); COMPARISON: CR XR CHEST PORTABLE 12/20/2023 3:13 PM FINDINGS: Pulmonary arteries: Adequate contrast opacification of the pulmonary arteries. Main pulmonary artery is normal in caliber. No acute pulmonary emboli. Aorta: Moderate to severe atherosclerotic irregularity of the thoracic aorta without aneurysm or dissection. Lungs: The trachea and main bronchi are patent. Mild bronchial wall thickening. Mild centrilobular emphysema. Bilateral dependent atelectasis. No focal infiltrate or airspace consolidation. Pleural spaces: Unremarkable. No pneumothorax. No pleural effusion. Heart: Borderline cardiomegaly. No pericardial effusion. Lymph nodes: Multiple borderline to mildly enlarged mediastinal lymph nodes up to 10 mm in short axis in the right paratracheal space. Calcified right hilar lymph nodes. Gallbladder and biliary ducts: Biliary ductal dilatation with prominent pneumobilia. Additionally, wall thickening of the extrahepatic bile duct. Bones/joints: Mild osteopenia. Moderate degenerative changes lower cervical spine. Status post median sternotomy. Soft tissues: Unremarkable. IMPRESSION: 1. No acute intrathoracic process. Specifically, no acute pulmonary emboli. 2. Moderate to severe atherosclerotic irregularity of the thoracic aorta without aneurysm or dissection. 3. Borderline to mildly enlarged mediastinal lymph nodes, including calcified hilar lymph nodes, most likely granulomatous. 4. Mild biliary ductal dilatation with prominent pneumobilia. Biliary ductal wall thickening. Constellation of features concerning for cholangitis. 5. Mild centrilobular emphysema. 6. Additional chronic and incidental findings. COMMENTS: The presence of pulmonary emphysema on CT is an independent risk factor for lung cancer. In the absence of a history or active diagnosis of lung cancer, it is recommended that this patient with emphysema be evaluated for enrollment in a low dose CT lung cancer screening program.
--- NOTE | 2024-04-02 19:40 | CT_ITS ---
PROCEDURE INFORMATION: Exam: CTA Neck With Contrast Exam date and time: 04/02/2024 8:03 PM Age: 64 years old Clinical indication: Vertigo; Additional info: Endocarditis, vertigo, concern for central TECHNIQUE: Imaging protocol: Computed tomographic angiography of the neck with contrast. Exam focused on the cervical segments of the vasculature. 3D rendering (Not supervised by radiologist): MIP and/or 3D reconstructed images were created by the technologist. Radiation optimization: All CT scans at this facility use at least one of these dose optimization techniques: automated exposure control; mA and/or kV adjustment per patient size (includes targeted exams where dose is matched to clinical indication); or iterative reconstruction. Contrast material: ISOVUE; Contrast volume: 100 ml; Contrast route: INTRAVENOUS (IV); COMPARISON: CT CERVICAL SPINE WO CON 01/16/2024 6:54 AM FINDINGS: Tubes, catheters and devices: Right upper extremity PICC in place. Right common carotid artery: No stenosis. No dissection or occlusion. Right internal carotid artery: Mild stenosis of the origin of the right internal carotid artery. Right external carotid artery: No occlusion or stenosis of the origin. Left common carotid artery: Mild stenosis of the proximal and distal portions of the left common carotid artery. Left internal carotid artery: Mild stenosis of the origin of the left internal carotid artery. Left external carotid artery: No occlusion or stenosis of the origin. Right vertebral artery: No stenosis. No dissection or occlusion. Left vertebral artery: No stenosis. No dissection or occlusion. Left subclavian artery: Greater than 50% stenosis of the origin of the left subclavian artery. Soft tissues: Normal. No significant soft tissue swelling. Bones/joints: Moderate multilevel disc space narrowing and uncovertebral spurring throughout the cervical spine. Moderate degenerative changes of the atlantodental joint. No acute fracture. IMPRESSION: 1. Mild bilateral ICA stenosis and mild left CCA stenosis 2. Patent bilateral vertebral arteries 3. Greater than 50% stenosis of the origin of the left subclavian artery 4. Moderate degenerative changes throughout the cervical spine. REFERENCES: NASCET CRITERIA. The degree of stenosis in the cervical segment of the internal carotid artery is based on NASCET criteria. Normal is no stenosis. Mild is less than 50% stenosis. Moderate is 50-69% stenosis. Severe is 70% to 99% stenosis. Total occlusion is no detectable patent lumen.
--- NOTE | 2024-04-02 19:40 | CT_ITS ---
PROCEDURE INFORMATION: Exam: CTA Head With Contrast, Arteriography Exam date and time: 04/02/2024 8:03 PM Age: 64 years old Clinical indication: Vertigo; Additional info: Endocarditis, vertigo, concern for central TECHNIQUE: Imaging protocol: Computed tomographic angiography of the head with contrast. Exam focused on the arteries. 3D rendering (Not supervised by radiologist): MIP and/or 3D reconstructed images were created by the technologist. Radiation optimization: All CT scans at this facility use at least one of these dose optimization techniques: automated exposure control; mA and/or kV adjustment per patient size (includes targeted exams where dose is matched to clinical indication); or iterative reconstruction. Contrast material: ISOVUE; Contrast volume: 100 ml; Contrast route: INTRAVENOUS (IV); COMPARISON: CT HEAD/BRAIN WO CON 04/02/2024 8:01 PM FINDINGS: ANTERIOR CIRCULATION: Right internal carotid artery: Intracranial segment is patent with no significant stenosis. No aneurysm. Right middle cerebral artery: No occlusion or significant stenosis. No aneurysm. Right anterior cerebral artery: No occlusion or significant stenosis. No aneurysm. Left internal carotid artery: Intracranial segment is patent with no significant stenosis. No aneurysm. Left middle cerebral artery: No occlusion or significant stenosis. No aneurysm. Left anterior cerebral artery: No occlusion or significant stenosis. No aneurysm. POSTERIOR CIRCULATION: Right vertebral artery: No occlusion or significant stenosis. No aneurysm. Left vertebral artery: No occlusion or significant stenosis. No aneurysm. Basilar artery: No occlusion or significant stenosis. No aneurysm. Right posterior cerebral artery: No occlusion or significant stenosis. No aneurysm. Left posterior cerebral artery: No occlusion or significant stenosis. No aneurysm. Brain: No definite mass, mass effect, or midline shift. Cerebral ventricles: No ventriculomegaly. Bones/joints: Unremarkable. No acute fracture. Soft tissues: Unremarkable. IMPRESSION: No large vessel stenosis or occlusion.
--- NOTE | 2024-04-02 19:40 | CT_ITS ---
PROCEDURE INFORMATION: Exam: CT Head Without Contrast Exam date and time: 04/02/2024 8:01 PM Age: 64 years old Clinical indication: Other: Vertigo; Additional info: Endocarditis, vertigo, concern for central TECHNIQUE: Imaging protocol: Computed tomography of the head without contrast. Total images: 588 Radiation optimization: All CT scans at this facility use at least one of these dose optimization techniques: automated exposure control; mA and/or kV adjustment per patient size (includes targeted exams where dose is matched to clinical indication); or iterative reconstruction. COMPARISON: CT HEAD/BRAIN WO CON 01/16/2024 6:52 AM FINDINGS: Brain: No acute intracranial hemorrhage, midline shift, or mass. Mild cortical and cerebellar atrophy. Garrido-white interface and basilar cisterns are preserved. Punctate lacunar infarcts right caudate head and right lentiform nucleus. Minor white matter heterogeneity compatible with remote small vessel ischemic change. Cerebral ventricles: No ventriculomegaly. Paranasal sinuses: Visualized sinuses are unremarkable. No fluid levels. Mastoid air cells: Visualized mastoid air cells are well aerated. Bones: Mild osteopenia. No skull fracture or concerning bone lesions. Soft tissues: Unremarkable. Vasculature: Moderate calcifications bilateral intracranial internal carotid arteries. IMPRESSION: 1. No acute intracranial process. 2. No significant change from January 16, 2024.
[2024-04-02 19:43] VITALS: BP 162/75; PULSE 63; RESP 20; TEMP 36.8; O2SAT 99; BMI 19.9
--- NOTE | 2024-04-02 19:46 | PC.NURSE ---
Dr. Lee reports she is placing order for stroke scan and chest cta. She would like pt to go straight to scan and not wait on labs. I called Radiology and they will colect pt as soon as the pt on the scan table is complete. aware of this
[2024-04-02 19:53] LABS: Basophils # 0.1 K/mm3 (0-0.2); Basophils % 1.6 % (0.1-2.0); Eosinophils # 0.3 K/mm3 (0.0-0.4); Eosinophils % 5.3 % (0.1-12.0); Hematocrit 36.9 % (37.0-47.0); Hemoglobin 11.4 g/dL (12.2-16.2); Lymphocytes # 2.7 K/mm3 (0.7-4.5); Lymphocytes % 43.2 % (10-50); Mean Corpuscular HGB Conc 30.7 g/dL (31.8-35.4); Mean Corpuscular Hemoglobin 28.2 pg (27.0-31.2); Mean Corpuscular Volume 91.9 fl (81-99); Mean Platelet Volume 7.8 fl (7.4-10.4); Monocytes # 0.4 K/mm3 (0.1-1.0); Monocytes % 5.6 % (1.7-9.3); Neutrophils # 2.7 K/mm3 (1.8-7.8); Neutrophils % 44.3 % (37.0-80.0); Platelet Count 308 K/mm3 (142-424); Red Blood Count 4.02 M/mm3 (4.20-5.40); Red Cell Distribution Width 19.7 % (11.5-17.5); White Blood Count 6.1 K/mm3 (4.8-10.8)
[2024-04-02 20:03] LABS: Lactic Acid 0.7 mmol/L (0.7-2.1)
[2024-04-02 20:04] LABS: Alanine Aminotransferase 14 U/L (12-78); Albumin Level 4.1 g/dl (3.5-5.0); Albumin/Globulin Ratio 1.2 (1.1-1.8); Alkaline Phosphatase 102 U/L (38-126); Anion Gap 12.6 mEq/L (5-15); Aspartate Amino Transferase 23 U/L (14-36); Bilirubin,Total 0.2 mg/dl (0.2-1.3); Blood Urea Nitrogen 20 mg/dl (7-17); Calcium 9.5 mg/dl (8.4-10.2); Carbon Dioxide 21 mmol/L (22.0-30.0); Chloride 111 mmol/L (98-107); Creatinine Clearance Estimated 43 mL/min (50-200); Estimated Glomerular Filt Rate 100 ml/min (>60); GFR (African American) 121 ML/MIN (>60); Globulin 3.4 g/dL (1.3-3.2); Glucose 100 mg/dl (74-100); Potassium 4.6 mmoL/L (3.5-5.1); Sodium 140 mmol/L (136-145); Total Protein,Serum 7.5 g/dl (6.3-8.2)
[2024-04-02 20:05] LABS: Activated Partial Thrombo Time 28.7 seconds (22.8-30.6); INR 0.94 (0.9-1.1); Prothrombin Time 10.6 seconds (10.1-12.5)
[2024-04-02] MEDS: IOPAMIDOL-370 (76%);100ML BOTTLE 170 ML IV (20:06)
[2024-04-02] MEDS: 0.9 % SODIUM CHLORIDE 50 ML VIAL IV (20:06)
[2024-04-02] MEDS: SODIUM CHLORIDE 0.9% 10ML SYR (RAD ONLY) 10 ML IV (20:06)
--- NOTE | 2024-04-02 20:14 | ECG_ITS ---
APPROVED REPORT Exam: Resting ECG HR:63 bpm ECG Measurements Heart Rate 63 AXES AK 183 P 57 QRSd 81 QRS 43 QT 416 T 60 QTc 423 Conclusion SINUS RHYTHM WITH FREQUENT SUPRAVENTRICULAR PREMATURE COMPLEXES IN A BIGEMINAL PATTERN LOW QRS VOLTAGE IN PRECORDIAL LEADS [QRS DEFLECTION < 1.0 mV IN CHEST LEADS] ABNORMAL RHYTHM ECG Electronically signed by : KESHA SHUKAL, 04/02/2024 23:55:17
--- NOTE | 2024-04-02 20:34 | ED_ITS ---
Discharge Plan Disposition Patient Disposition: Left Against Medical Advice Condition: Fair Prescriptions Prescriptions: No Action lidocaine [Aspercreme (lidocaine)] 4 % adhesive patch,medicated 1 patch topical DAILYP PRN (Reason: Back Pain) pregabalin [Lyrica] 200 mg capsule 200 mg PO BID 30 Days Qty: 60 2RF gentamicin 40 mg/mL solution 40 mg IM levetiracetam 500 mg tablet PO Patient Comments: TAKE 1 TABLET BY MOUTH TWICE DAILY ceftriaxone 10 gram recon soln IM paroxetine HCl 40 mg tablet 40 mg PO DAILY 90 Days Qty: 90 1RF temazepam 15 mg capsule 15 mg PO HS 30 Days Qty: 30 2RF pantoprazole 40 mg tablet,delayed release (DR/EC) See Rx Instructions .ROUTE .COMPLEX Qty: 60 3RF Dose Instruction: TAKE 1 TABLET BY MOUTH TWICE DAILY FOR STOMACH Rx Instructions: TAKE 1 TABLET BY MOUTH TWICE DAILY FOR STOMACH Pro Fe 180 mg iron capsule 180 mg PO DAILY Qty: 30 2RF hydrocodone-acetaminophen 5-325 mg tablet 1 tab PO Q6H PRN (Reason: post op pain) Qty: 40 0RF Zenpep 25,000-79,000- 105,000 unit capsule,delayed release(DR/EC) 1 cap PO TID Qty: 90 2RF Rx Instructions: administer with meals and/or snacks ondansetron HCl 4 mg tablet 4 mg PO Q8HP PRN (Reason: nausea and vomiting) Trelegy Ellipta 100-62.5-25 mcg blister with device 1 inh inhalation DAILY Creon 24,000-76,000 -120,000 unit capsule,delayed release(DR/EC) 1 cap PO DAILY Referrals Follow up/Referrals: Betty Antonio APRN [Primary Care Provider] - See instructions Activity Restrictions/Add. Instructions Additional Instructions/Restrictions: You were evaluated in the emergency department today. You are choosing to leave AGAINST MEDICAL ADVICE, as we recommended admission for MRI. Please return to the emergency department right away if you change your mind. Follow-up very closely with your team at [facility] as well as with your primary care provider. Please do not hesitate to return should you wish to seek further evaluation or should your symptoms worsen. Clinical Impressions Clinical Impression: Elevated blood pressure reading, Dizziness, Headache Instructions Patient Instructions: DI for Dizziness-Nonvertigo Print Language Print Language: Ukrainian Discharge ED Provider: Rani Lee General Adult HPI General Chief complaint: Dizziness Stated complaint: Dizziness,HBP Time Seen by Provider: 04/02/24 19:13 Mode of Arrival: Wheelchair Source of Information: Patient Limitations: Dizziness Description of Symptoms (Recalled from ER Triage Doc. by RN): Pt. c/o sudden onset dizziness since 0830 this morning. Pt. states she feels like the room is spinning. Pt. was seen at today for an Aortic valve endocardititis being treated with home antibiotics through a PICC line. Pt. also hypertensive. was told to go to ED for the blood pressure but patient perferred to come here. History of Present Illness HPI narrative: This patient is a 64-year-old female with a history of aortic valve endocarditis currently on Rocephin through PICC line presenting with concern for dizziness. Patient had sudden onset of dizziness, it is in the room was spinning, round 830 this morning. She was seen at [facility] today by her infectious disease doctor, Dr. Metcalf, who was highly concerned for stroke and recommended that she go straight to the ED across the street at . Her doctor followed up and noted that she did not go to the hospital there, so she called her and told her to present directly to the closest ED. I did have an interactive discussion with this provider earlier on in the afternoon and was expecting the patient, however she did not show up until later this evening long after I had received the initial call. She states that the dizziness and sensation of the room spinning is constantly there, it does not change with position, and nothing seems to make it better or worse. She is having trouble walking secondary to this. No visual disturbance, numbness, tingling, unilateral weakness, or other concerns. She has had no recent fevers or infectious symptoms. 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 She states that she does have a history of aortic valve replacement with a pig valve. Related Data Home Medications ?Medication ?Instructions ?Recorded ?Confirmed lidocaine 4 % topical patch 1 patch topical DAILYP PRN Back 08/16/23 03/19/24 (Aspercreme (lidocaine)) Pain fluticasone fur. 100 mcg-umeclid 1 inh inhalation DAILY Breathing 10/16/23 03/19/24 62.5 mcg-vilant 25 mcg Problems inhalat.powder (Trelegy Ellipta) ondansetron HCl 4 mg tablet 4 mg PO Q8HP PRN nausea and 10/16/23 03/19/24 vomiting jvpyvv-rmfqxnzh-iglpxli 1 cap PO DAILY 12/16/23 03/19/24 24,000-76,000-120,000 unit capsule,delayed rel (Creon) ceftriaxone 10 gram solution for IM 03/02/24 03/19/24 injection gentamicin 40 mg/mL injection 40 mg IM 03/02/24 03/19/24 solution levetiracetam 500 mg tablet mg PO 03/02/24 03/19/24 Previous Rx's ?Medication ?Instructions ?Recorded paroxetine HCl 40 mg tablet 40 mg PO DAILY Mood 90 days #90 11/12/23 tabs temazepam 15 mg capsule 15 mg PO HS Insomnia 30 days #30 12/30/23 caps pregabalin 200 mg capsule (Lyrica) 200 mg PO BID 30 days #60 caps 01/10/24 pantoprazole 40 mg tablet,delayed See Rx Instructions .Route 02/05/24 release .COMPLEX #60 tabs polysaccharide iron complex 180 mg 180 mg PO DAILY #30 caps 03/10/24 iron capsule (Pro Fe) hydrocodone 5 mg-acetaminophen 325 1 tab PO Q6H PRN post op pain #40 03/16/24 mg tablet tabs vpkhzh-klmzdadl-yideawm 1 cap PO TID #90 caps 03/17/24 25,000-79,000-105,000 unit capsule,delayed rel (Zenpep) Allergies Allergy/AdvReac Type Severity Reaction Status Date / Time levofloxacin [From LEVAQUIN] Allergy Unknown SEIZURES Verified 03/19/24 12:59 [facility] Disclaimer: The information contained in this section may have been updated after the patient was seen, as this information can be updated by other users. Medical History Nausea Urinary tract infection Oral candidiasis Rib pain on left side Acute pancreatitis RUQ abdominal pain Presence of pancreatic duct stent Pancreatic disease Constipation Lower abdominal pain Neuropathy Depression Acute cystitis without hematuria Abdominal pain Abnormal electrocardiogram [ECG] [EKG] Dyspnea Tobacco dependence syndrome History of suicide attempt Mood disorder Tobacco abuse Marijuana abuse Multiple lacunar infarcts History of syncope Elevated blood pressure reading Bradycardia Memory loss Encephalopathy Contusion, hip Syncope and collapse SIRS (systemic inflammatory response syndrome) Gastroesophageal reflux disease Closed right hip fracture Hip fracture Surgical History History of repair of both hip joints History of appendectomy History of laparoscopic cholecystectomy History of hysterectomy History of tonsillectomy History of hip replacement History of aortic valve replacement History of aortic valve replacement with porcine valve Family History Other Diabetes Hypertension Stroke Social History Smoking Status: Current every day smoker tobacco type: cigarettes packs per day: 1 second hand exposure: Yes alcohol intake: never substance use type: other current occupational status: retired Travel in the last 8 weeks: None household members: family and children housing: house current occupational exposures/hazards: No caffeine: Yes ROS Obtained: Yes All systems reviewed & no additional complaints except as documented Physical Exam General General appearance: alert and in no apparent distress Head Head exam: atraumatic and normocephalic Eye Eye exam: Present normal appearance, PERRL and EOMI ENT ENT exam: Present normal exam, normal oropharynx, mucous membranes moist and normal external ear exam Neck Neck exam: Present normal inspection, full ROM and trachea midline; Absent tenderness Chest Chest inspection: Present normal inspection and symmetric chest wall rise; Absent tenderness Respiratory Respiratory exam: Present normal lung sounds bilaterally; Absent respiratory distress, wheezes, stridor or accessory muscle use Cardiovascular Cardiovascular exam: Present regular rate and normal rhythm Abdominal Exam Abdominal exam: Present soft; Absent distention, tenderness or guarding Extremities Exam Extremities exam: Present normal inspection, full ROM and normal capillary refill; Absent tenderness or edema Back Exam Back exam: Present normal inspection and full ROM; Absent tenderness Neurological Exam Neurological exam: Present alert, oriented X3, CN II-XII intact and normal gait; Absent motor sensory deficit Expanded Neurological Exam Patient oriented to: Present person, place and time Speech: Present fluid speech Cranial nerves: Normal: EOM function (II, III, IV, ), facial sensation (V), facial palsy (VII) and spinal accessory function (XI) Cerebellar function: Normal: finger to nose and heel to ortiz Cerebellar function: wide-based gait Motor strength - LUE: 5/ Motor strength - RUE: 55 Motor strength - LLE: 01/04 Motor strength - RLE: 01/04 Comment: Bilateral horizontal bidirectional nystagmus. No deviation with test of skew. Head impulse test requires corrective saccades in both directions. Psychiatric Psychiatric exam: Present normal affect and normal mood Skin Skin exam: Present warm and dry Medical Decision Making Medical Records Medical records reviewed: Yes I reviewed the patient's medical records. [place] Inquiry Pt receiving controlled substance: No Vital Signs: 04/02/24 19:02 04/02/24 19:43 04/02/24 20:47 Temperature 98.5 F 98.2 F Temperature Source Oral Oral Pulse Rate 64 Pulse Rate [Right] 77 63 Respiratory Rate 20 20 20 Blood Pressure 129/66 Blood Pressure [Right Arm] 170/112 H 162/75 H Blood Pressure Mean [Right Arm] 131 104 Blood Pressure Source Automatic Cuff Blood Pressure Source [Right Arm] Automatic Cuff Blood Pressure Position Supine Blood Pressure Position [Right Arm] Sitting 02 Sat by Pulse Oximetry 100 99 100 Oxygen Delivery Method Room Air Room Air Room Air 04/02/24 21:59 Temperature 98.0 F Temperature Source Oral Pulse Rate 75 Pulse Rate [Right] Respiratory Rate 18 Blood Pressure 128/73 Blood Pressure [Right Arm] Blood Pressure Mean [Right Arm] Blood Pressure Source Blood Pressure Source [Right Arm] Blood Pressure Position Blood Pressure Position [Right Arm] 02 Sat by Pulse Oximetry Oxygen Delivery Method Room Air Lab Data Lab results reviewed: Yes I reviewed the patient's lab results. Lab Results 04/02/24 19:35: WBC 6.1, RBC 4.02 L, Hgb 11.4 L, Hct 36.9 L, MCV 91.9, MCH 28.2, MCHC 30.7 L, RDW 19.7 H, Plt Count 308 D, MPV 7.8, Neut % (Auto) 44.3, Lymph % (Auto) 43.2, Dauphin % (Auto) 5.6, Eos % (Auto) 5.3, Baso % (Auto) 1.6, Neut # (Auto) 2.7, Lymph # (Auto) 2.7, Dauphin # (Auto) 0.4, Eos # (Auto) 0.3, Baso # (Auto) 0.1, PT 10.6, INR 0.94, APTT 28.7, Sodium 140, Potassium 4.6, Chloride 111 H, Carbon Dioxide 21 L, Anion Gap 12.6, BUN 20 H, Creatinine 0.60, Estimated Creat Clear 43, Estimated GFR 100, Est GFR ( Amer) 121, Glucose 100 D, Lactate 0.7, Calcium 9.5, Total Bilirubin 0.2, AST 23, ALT 14, Alkaline Phosphatase 102, C-Reactive Protein 13.0 H, Total Protein 7.5, Albumin 4.1, G lobulin 3.4 H, Albumin/Globulin Ratio 1.2 04/02/24 19:35 04/02/24 19:35 Orders (Tests/Meds): ED MEDICATIONS Discontinued Medications Generic Name Dose Route Start Last Admin Trade Name Freq PRN Reason Stop Dose Admin Iopamidol 170 ml 04/02/24 20:05 04/02/24 20:06 Iopamidol-370 (76%);100ml Bottle IV 04/02/24 20:06 170 ml ONCE ONE Administration Meclizine HCl 25 mg 04/02/24 21:08 04/02/24 21:20 Meclizine 25mg Tablet PO 04/02/24 21:09 25 mg ONCE ONE Administration Sodium Chloride 50 ml 04/02/24 20:05 04/02/24 20:06 0.9 % Sodium Chloride 50 Ml Vial IV 04/02/24 20:06 50 ml ONCE ONE Administration Sodium Chloride 10 ml 04/02/24 20:05 04/02/24 20:06 Sodium Chloride 0.9% 10ml Syr (Rad Only) IV 04/02/24 20:06 10 ml ONCE ONE Administration ORDERS Category Date Time Status CT angio chest PE protocol Stat Cat Scan 04/02/24 19:[address] angio head Stat Cat Scan 04/02/24 19:[address] angio neck Stat Cat Scan 04/02/24 19:[address] head/brain wo con Stat Cat Scan 04/02/24 19:40 Completed Activated Partial Thrombo Time Stat Lab 04/02/24 19:35 Completed CRP [C-Reactive Protein] Stat Lab 04/02/24 19:35 Completed Complete Blood Count Auto Diff Stat Lab 04/02/24 19:35 Completed Comprehensive Metabolic Panel Stat Lab 04/02/24 19:35 Completed Lactic Acid Stat Lab 04/02/24 19:35 Completed Prothrombin Time INR Stat Lab 04/02/24 19:35 Completed Blood Culture Stat Micro 04/02/24 20:05 Received ECG Data Tracing #1: I reviewed this ECG and interpreted as documented below: Normal sinus rhythm with a ventricular rate of 63 bpm. Frequent PACs. No acute ST changes concerning for ischemia. ECG initial impression date: 04/02/24 ECG initial impression time: 20:15 Medical Decision Narrative: In summary, this patient is a 64-year-old female presenting to the Emergency Department for evaluation of vertigo. Differential diagnoses considered include but are not limited to vestibular neuritis, peripheral vertigo, BPPV, posterior stroke, septic embolus. Ruling out the most morbid conditions drove assessment. It should be noted patient's history includes aortic valve endocarditis which may or may not be at goal therapy. This complicates all aspects of care by increasing patient's risk for morbidity. I had an interactive discussion with the patient's provider prior to her arrival. Please see HPI for further documentation. On exam, the patient is resting comfortably in bed in no acute distress with reassuring vital signs with exception of hypertension. She has exam that is concerning for central cause of vertigo with bilateral bidirectional nystagmus as well as corrective saccades bidirectionally with head impulse test. Otherwise, no focal neurologic deficits. Workup included CT head, CT angiogram head and neck, CTA PE protocol emergently for stroke evaluation. She is outside of window for tPA/TNK given onset of symptoms was nearly 12 hours prior to arrival. I independently interpreted CT scans prior to the radiologist read and noted no obvious intracranial hemorrhage or space-occupying lesion. Please see their read for final interpretation. I had an interactive discussion with Dr. Liao ( Neurosurgery) via [email or web address] who advised no LVO. Labs were obtained that demonstrated no acutely concerning abnormalities at this time blood cultures were sent and are pending. On reassessment, patient had good improvement after administration of administration of oral meclizine. She states he is feeling a lot better. I called and had an interactive discussion with Dr. Aj White with [facility] neurology given that the patient's care is there. He advised that given that she is outside of window with no large vessel occlusion, he recommended keeping the patient to obtain MRI with and without contrast to evaluate for potential stroke. I advised the patient of this and she states that she is feeling better and wants to go home. She understands that if she has a stroke this means she could have permanent neurologic disability and symptoms could worsen, especially if she developed cerebral edema. She states that she understands but she is feeling fine and wants to go home. Given this, she left AGAINST MEDICAL ADVICE. She alert and oriented x 4 and has decision- making capacity. I advised that she follow-up very closely with her care team in [place] and gave her very strict return precautions. She was discharged after all questions were answered. Critical Care Critical Care Time Critical Care Time: No
[2024-04-02 20:47] VITALS: BP 129/66; PULSE 64; RESP 20; O2SAT 100
--- NOTE | 2024-04-02 21:08 | PC.NURSE ---
Contacted [facility] in regards to a neuro consult, they will page there neuro department and contact us back.
[2024-04-02] MEDS: MECLIZINE 25MG TABLET 25 MG PO (21:20)
[2024-04-02 21:59] VITALS: BP 128/73; PULSE 75; RESP 18; TEMP 36.7; O2SAT 98
== END 2024-04-02 22:18 | disposition left against medical advice (07) ==
LOC: UTC 19:12 → ER 19:28
PROVIDERS: Emergency Provider Emergency Medicine; PCP Nurse Practitioner Family
DX: R03.0 Elevated blood-pressure reading, without diagnosis of hypertension (principal); I33.0 Acute and subacute infective endocarditis; Z79.899 Other long term (current) drug therapy; F17.210 Nicotine dependence, cigarettes, uncomplicated; R42 Dizziness and giddiness; R51.9 Headache, unspecified
CPT/HCPCS: 70450; 70496; 70498; 71275; 80048; 80053; 83605; 85025; 85610; 85730; 86140; 87040; 93005; 99284; Q9967

== ENCOUNTER 2024-04-04 11:41 | Emergency (ER) | payer MEDICARE, SELFPAY ==
[2024-04-04 11:58] VITALS: BP 134/74; PULSE 71; RESP 20; TEMP 36.9; O2SAT 97; BMI 19.9
[2024-04-04 12:00] VITALS: BP 120/67; PULSE 61; O2SAT 97
--- NOTE | 2024-04-04 12:16 | ED_ITS ---
Discharge Plan Disposition Patient Disposition: Xfer Other Chief Complaint: Recheck/Abnormal Lab/Rx Prescriptions Prescriptions: No Action lidocaine [Aspercreme (lidocaine)] 4 % adhesive patch,medicated 1 patch topical DAILYP PRN (Reason: Back Pain) pregabalin [Lyrica] 200 mg capsule 200 mg PO BID 30 Days Qty: 60 2RF gentamicin 40 mg/mL solution 40 mg IM levetiracetam 500 mg tablet PO Patient Comments: TAKE 1 TABLET BY MOUTH TWICE DAILY ceftriaxone 10 gram recon soln IM paroxetine HCl 40 mg tablet 40 mg PO DAILY 90 Days Qty: 90 1RF temazepam 15 mg capsule 15 mg PO HS 30 Days Qty: 30 2RF pantoprazole 40 mg tablet,delayed release (DR/EC) See Rx Instructions .ROUTE .COMPLEX Qty: 60 3RF Dose Instruction: TAKE 1 TABLET BY MOUTH TWICE DAILY FOR STOMACH Rx Instructions: TAKE 1 TABLET BY MOUTH TWICE DAILY FOR STOMACH Pro Fe 180 mg iron capsule 180 mg PO DAILY Qty: 30 2RF hydrocodone-acetaminophen 5-325 mg tablet 1 tab PO Q6H PRN (Reason: post op pain) Qty: 40 0RF Zenpep 25,000-79,000- 105,000 unit capsule,delayed release(DR/EC) 1 cap PO TID Qty: 90 2RF Rx Instructions: administer with meals and/or snacks ondansetron HCl 4 mg tablet 4 mg PO Q8HP PRN (Reason: nausea and vomiting) Trelegy Ellipta 100-62.5-25 mcg blister with device 1 inh inhalation DAILY Creon 24,000-76,000 -120,000 unit capsule,delayed release(DR/EC) 1 cap PO DAILY Referrals Follow up/Referrals: Betty Antonio APRN [Primary Care Provider] - See instructions Clinical Impressions Clinical Impression: Fungemia, Infection of prosthetic heart valve Print Language Print Language: Tamazight Discharge ED Provider: Jignesh Barron General Adult HPI General Chief complaint: Recheck/Abnormal Lab/Rx Stated complaint: abnormal lab work Time Seen by Provider: 04/04/24 12:05 Mode of Arrival: Ambulatory Source of Information: Patient Limitations: No Limitations Description of Symptoms (Recalled from ER Triage Doc. by RN): pt to ed c/o abnormal blood culture results History of Present Illness HPI narrative: Patient is a 64-year-old female presenting to the emergency department for being called for abnormal blood culture results and told to return to the emergency department for further evaluation. Patient has a history of endocarditis of an aortic valve and is being followed by Dr. Metcalf with [facility] receiving Rocephin through a PICC line which she is almost completed. She was recently evaluated by Dr. Metcalf with some vertigo and told to be evaluated in the emergency department at [facility] for possible stroke however she chose to come to [facility] she had unremarkable CT scans including angiography and was advised to stay for MRI but she left AGAINST MEDICAL ADVICE. At that time blood cultures were obtained for unclear reasons as patient had no fevers or chills etc. 1 of 2 cultures returned positive in the aerobic bottle for Rosario glabrata. Patient states that she feels much better she actually had some vertiginous symptoms that have improved since that time she has had no fevers or chills and states she is at her baseline other than some mild persistent vertigo. Related Data Home Medications ?Medication ?Instructions ?Recorded ?Confirmed lidocaine 4 % topical patch 1 patch topical DAILYP PRN Back 08/16/23 03/19/24 (Aspercreme (lidocaine)) Pain fluticasone fur. 100 mcg-umeclid 1 inh inhalation DAILY Breathing 10/16/23 03/19/24 62.5 mcg-vilant 25 mcg Problems inhalat.powder (Trelegy Ellipta) ondansetron HCl 4 mg tablet 4 mg PO Q8HP PRN nausea and 10/16/23 03/19/24 vomiting wbdllc-prnejlbu-locdvde 1 cap PO DAILY 12/16/23 03/19/24 24,000-76,000-120,000 unit capsule,delayed rel (Creon) ceftriaxone 10 gram solution for IM 03/02/24 03/19/24 injection gentamicin 40 mg/mL injection 40 mg IM 03/02/24 03/19/24 solution levetiracetam 500 mg tablet mg PO 03/02/24 03/19/24 Previous Rx's ?Medication ?Instructions ?Recorded paroxetine HCl 40 mg tablet 40 mg PO DAILY Mood 90 days #90 11/12/23 tabs temazepam 15 mg capsule 15 mg PO HS Insomnia 30 days #30 12/30/23 caps pregabalin 200 mg capsule (Lyrica) 200 mg PO BID 30 days #60 caps 01/10/24 pantoprazole 40 mg tablet,delayed See Rx Instructions .Route 02/05/24 release .COMPLEX #60 tabs polysaccharide iron complex 180 mg 180 mg PO DAILY #30 caps 03/10/24 iron capsule (Pro Fe) hydrocodone 5 mg-acetaminophen 325 1 tab PO Q6H PRN post op pain #40 03/16/24 mg tablet tabs rrxkny-jvprroog-udtjfty 1 cap PO TID #90 caps 03/17/24 25,000-79,000-105,000 unit capsule,delayed rel (Zenpep) Allergies Allergy/AdvReac Type Severity Reaction Status Date / Time levofloxacin [From LEVAQUIN] Allergy Unknown SEIZURES Verified 03/19/24 12:59 PFSH PFS Disclaimer: The information contained in this section may have been updated after the patient was seen, as this information can be updated by other users. Medical History Nausea Urinary tract infection Oral candidiasis Rib pain on left side Acute pancreatitis RUQ abdominal pain Presence of pancreatic duct stent Pancreatic disease Constipation Lower abdominal pain Neuropathy Depression Acute cystitis without hematuria Abdominal pain Abnormal electrocardiogram [ECG] [EKG] Dyspnea Tobacco dependence syndrome History of suicide attempt Mood disorder Tobacco abuse Marijuana abuse Multiple lacunar infarcts History of syncope Elevated blood pressure reading Bradycardia Memory loss Encephalopathy Contusion, hip Syncope and collapse SIRS (systemic inflammatory response syndrome) Gastroesophageal reflux disease Closed right hip fracture Hip fracture Surgical History History of repair of both hip joints History of appendectomy History of laparoscopic cholecystectomy History of hysterectomy History of tonsillectomy History of hip replacement History of aortic valve replacement History of aortic valve replacement with porcine valve Family History Other Diabetes Hypertension Stroke Social History Smoking Status: Current every day smoker tobacco type: cigarettes packs per day: 1 second hand exposure: Yes alcohol intake: never substance use type: other current occupational status: retired Travel in the last 8 weeks: None household members: family and children housing: house current occupational exposures/hazards: No caffeine: Yes ROS Obtained: Yes All systems reviewed & no additional complaints except as documented Physical Exam General General appearance: alert Respiratory Respiratory exam: Present normal lung sounds bilaterally Cardiovascular Cardiovascular exam: Present regular rate and normal rhythm Abdominal Exam Abdominal exam: Present soft; Absent distention Neurological Exam Neurological exam: Present alert, oriented X3, CN II-XII intact, normal gait and other (Normal finger-nose nrvv-qw-xrfc and gait and Romberg); Absent motor sensory deficit Medical Decision Making Suleman Inquiry Pt receiving controlled substance: No Vital Signs: 04/04/24 11:58 04/04/24 12:00 04/04/24 13:02 Temperature 98.4 F Temperature Source Oral Pulse Rate 61 61 Pulse Rate [Left Radial] 71 Respiratory Rate 20 Blood Pressure 120/67 110/51 L Blood Pressure [Right Arm] 134/74 Blood Pressure Mean [Right Arm] 94 02 Sat by Pulse Oximetry 97 97 98 Oxygen Delivery Method Room Air Room Air Room Air 04/04/24 13:30 Temperature Temperature Source Pulse Rate 62 Pulse Rate [Left Radial] Respiratory Rate Blood Pressure 119/57 L Blood Pressure [Right Arm] Blood Pressure Mean [Right Arm] 02 Sat by Pulse Oximetry 97 Oxygen Delivery Method Room Air Medical Decision Narrative: Well-appearing 64-year-old female above history and physical call back for Rosario glabrata being resulted from 1 of 2 aerobic bottles. She is essentially asymptomatic from an infectious standpoint I suspect this is most likely a contaminant. When asked where cultures were obtained from 1 was obtained from her PICC line itself and another from a peripheral IV. I will attempt to discuss this case with Dr. Dominguez her infectious disease doctor but at the moment I am erring on the side of not treating with antifungal medications. Reassessment [address] Maddox who is on-call for Dr. Metcalf with infectious disease at [facility]. Despite the fact this patient is asymptomatic she has an indwelling PICC catheter and he states that we need to take this seriously and follow IDSA guidelines which would include removing her PICC, administering IV micafungin repeating blood cultures once they are clear to treat her for 14 days with IV antifungal medications. She also will need an echo and ophthalmology evaluation. I spoke with Dr. Kitchen our [facility] medicine doctor here who is not comfortable keeping the patient here for numerous reasons including that we do not have infectious disease to follow the patient as well as ophthalmology etc. There is no urgency to completing the above workup therefore I am holding off on doing that until she can be transferred to [facility]. We called hospital medicine around noon and are calling back now at 1:35 PM to discuss the case with him further. Patient is aware this and agreeable to be transferred she will likely go by private vehicle. Reassessment 1:58 PM we spoke with Dr. Morales who is on-call for cardiology. After discussing the case with him he accepted the patient for further evaluation and management at [facility]. Given the fact that the patient looks clinically well and is not septic we will not do any of the blood work here would not pull her PICC line they will try to do that at [place] unless she gets sicker here. They did asked that we hold onto her in the emergency department till a bed becomes available. Patient is aware of this and agreeable. My notes as well as Dr. Lee note from the first will be printed out as well as labs from that day including culture results which show Rosario glabrata from the aerobic bottle of 1 set. I believe personally that this is most likely be a contaminant however it is possible that this is real they will try to reproduce this at [place] with the cultures. Critical Care Critical Care Time Critical Care Time: No
--- NOTE | 2024-04-04 12:23 | PC.NURSE ---
speaking with from infectious disease
--- NOTE | 2024-04-04 12:34 | PC.NURSE ---
CALLED FOR POSS TRANSFER WAITING FOR HOSPITALIST TO CALL BACK
[2024-04-04 13:02] VITALS: BP 110/51; PULSE 61; O2SAT 98
[2024-04-04 13:30] VITALS: BP 119/57; PULSE 62; O2SAT 97
--- NOTE | 2024-04-04 13:36 | PC.NURSE ---
Spoke with [facility] about pt transfer. They advised that they had paged cardiology 5 minutes ago and would call back.
--- NOTE | 2024-04-04 14:00 | PC.NURSE ---
spoke with [facility] who states pt is allowed to walk outside per DON. is aware and ok for pt to do so.
--- NOTE | 2024-04-04 14:10 | PC.NURSE ---
pt walked out side with friend
--- NOTE | 2024-04-04 14:20 | PC.NURSE ---
pt is outside
--- NOTE | 2024-04-04 15:20 | PC.NURSE ---
pt out walking in hallway
--- NOTE | 2024-04-04 15:40 | PC.NURSE ---
pt returned to bed from outside with friend
--- NOTE | 2024-04-04 16:00 | PC.NURSE ---
pt is back in room watching tv
[2024-04-04] MEDS: HYDROCODONE/APAP 5/325 MG TABLET 1 TAB PO (16:04)
[2024-04-04 16:26] VITALS: BP 133/76; PULSE 71; O2SAT 99
--- NOTE | 2024-04-04 16:28 | PC.NURSE ---
rounded on pt, pt requesting some food
--- NOTE | 2024-04-04 16:28 | PC.NURSE ---
call cafeteria for pt MD tri okayed for pt to eat
[2024-04-04 17:19] VITALS: BP 132/84; PULSE 71; RESP 20; TEMP 37.1; O2SAT 97
== END 2024-04-04 17:20 | disposition other institution (70) ==
PROVIDERS: Emergency Provider Student in an Organized Health Care Education/Training Program; PCP Nurse Practitioner Family
DX: T82.6XXA Infection and inflammatory reaction due to cardiac valve prosthesis, initial encounter (principal); B49 Unspecified mycosis; F17.210 Nicotine dependence, cigarettes, uncomplicated; K21.9 Gastro-esophageal reflux disease without esophagitis; Z86.79 Personal history of other diseases of the circulatory system
CPT/HCPCS: 99285

== ENCOUNTER 2024-05-12 15:17 | Outpatient (CLI) | payer MEDICARE, SELFPAY ==
--- NOTE | 2024-05-12 15:22 | XR_ITS ---
FINAL REPORT CLINICAL HISTORY: right rib pain, injury FINDINGS: A single view of the chest with 3 views of the ribs were obtained. There is no acute cardiopulmonary process. Patient is status post median sternotomy. No pneumothorax is identified. No displaced rib fracture identified. IMPRESSION: No acute process. Reviewed, Interpreted and Dictated by Charles Wu III, MD Transcribed by Cassandra Burgos Authenticated and [facility]
== END 2024-05-12 23:59 | disposition home or self-care (01) ==
LOC: RAD 15:19
PROVIDERS: PCP Nurse Practitioner Family; Visit Provider Nurse Practitioner Family
DX: R07.81 Pleurodynia (principal)
CPT/HCPCS: 71101

== ENCOUNTER 2024-06-08 14:36 | Outpatient (CLI) | payer MEDICARE, SELFPAY ==
[2024-06-08 12:56] LABS: Basophils # 0.1 K/mm3 (0-0.2); Basophils % 1.3 % (0.1-2.0); Eosinophils # 0.3 K/mm3 (0.0-0.4); Eosinophils % 3.6 % (0.1-12.0); Hematocrit 38.9 % (37.0-47.0); Lymphocytes # 2.3 K/mm3 (0.7-4.5); Lymphocytes % 29.2 % (10-50); Mean Corpuscular HGB Conc 33.4 g/dL (31.8-35.4); Mean Corpuscular Volume 89.8 fl (81-99); Mean Platelet Volume 7.3 fl (7.4-10.4); Monocytes # 0.3 K/mm3 (0.1-1.0); Monocytes % 4.3 % (1.7-9.3); Neutrophils # 4.7 K/mm3 (1.8-7.8); Neutrophils % 61.5 % (37.0-80.0); Platelet Count 264 K/mm3 (142-424); Red Blood Count 4.34 M/mm3 (4.20-5.40); White Blood Count 7.7 K/mm3 (4.8-10.8)
[2024-06-08 13:38] LABS: Albumin Level 4.2 g/dl (3.5-5.0); Chloride 108 mmol/L (98-107); Potassium 4.5 mmoL/L (3.5-5.1); Sodium 140 mmol/L (136-145)
[2024-06-08 13:40] LABS: Alanine Aminotransferase 15 U/L (12-78); Amylase 76 U/L (30-110); Anion Gap 12.5 mEq/L (5-15); Aspartate Amino Transferase 22 U/L (14-36); Blood Urea Nitrogen 22 mg/dl (7-17); Carbon Dioxide 24 mmol/L (22.0-30.0); Estimated Glomerular Filt Rate 84 ml/min (>60); GFR (African American) 101 ML/MIN (>60)
[2024-06-08 13:41] LABS: Albumin/Globulin Ratio 1.5 (1.1-1.8); Alkaline Phosphatase 137 U/L (38-126); Bilirubin,Total 0.3 mg/dl (0.2-1.3); Calcium 9.8 mg/dl (8.4-10.2); Globulin 2.8 g/dL (1.3-3.2); Glucose 80 mg/dl (74-100); Lipase 595 U/L (23-300)
== END 2024-06-08 23:59 | disposition home or self-care (01) ==
LOC: LAB.DROPOF 14:36
PROVIDERS: PCP Nurse Practitioner Family; Visit Provider Nurse Practitioner Family
DX: K86.89 Other specified diseases of pancreas (principal); R10.11 Right upper quadrant pain; R11.0 Nausea
CPT/HCPCS: 80053; 82150; 83690; 85025

== ENCOUNTER 2024-06-15 13:44 | Outpatient (CLI) | payer MEDICARE, SELFPAY ==
[2024-06-15 12:43] LABS: Basophils # 0.1 K/mm3 (0-0.2); Basophils % 0.8 % (0.1-2.0); Eosinophils # 0.3 K/mm3 (0.0-0.4); Eosinophils % 2.9 % (0.1-12.0); Hematocrit 41.5 % (37.0-47.0); Hemoglobin 13.8 g/dL (12.2-16.2); Lymphocytes % 19.6 % (10-50); Mean Corpuscular HGB Conc 33.2 g/dL (31.8-35.4); Mean Corpuscular Hemoglobin 30.5 pg (27.0-31.2); Mean Corpuscular Volume 91.8 fl (81-99); Mean Platelet Volume 7.8 fl (7.4-10.4); Monocytes # 0.4 K/mm3 (0.1-1.0); Monocytes % 4.3 % (1.7-9.3); Neutrophils # 7.3 K/mm3 (1.8-7.8); Neutrophils % 72.4 % (37.0-80.0); Platelet Count 258 K/mm3 (142-424); Red Blood Count 4.53 M/mm3 (4.20-5.40); Red Cell Distribution Width 16.6 % (11.5-17.5); White Blood Count 10.1 K/mm3 (4.8-10.8)
[2024-06-15 13:04] LABS: Albumin Level 4.2 g/dl (3.5-5.0); Chloride 114 mmol/L (98-107)
[2024-06-15 13:05] LABS: Potassium 4.8 mmoL/L (3.5-5.1); Sodium 139 mmol/L (136-145)
[2024-06-15 13:07] LABS: Alanine Aminotransferase 11 U/L (12-78); Albumin/Globulin Ratio 1.4 (1.1-1.8); Amylase 96 U/L (30-110); Anion Gap 12.8 mEq/L (5-15); Aspartate Amino Transferase 22 U/L (14-36); Blood Urea Nitrogen 19 mg/dl (7-17); Carbon Dioxide 17 mmol/L (22.0-30.0); Estimated Glomerular Filt Rate 84 ml/min (>60); GFR (African American) 101 ML/MIN (>60); Globulin 2.9 g/dL (1.3-3.2); Total Protein,Serum 7.1 g/dl (6.3-8.2)
[2024-06-15 13:08] LABS: Alkaline Phosphatase 117 U/L (38-126); Bilirubin,Total 0.4 mg/dl (0.2-1.3); Calcium 9.3 mg/dl (8.4-10.2); Glucose 72 mg/dl (74-100)
[2024-06-15 13:17] LABS: Lipase 763 U/L (23-300)
== END 2024-06-15 23:59 | disposition home or self-care (01) ==
LOC: LAB.DROPOF 13:44
PROVIDERS: PCP Nurse Practitioner Family; Visit Provider Nurse Practitioner Family
DX: K85.90 Acute pancreatitis without necrosis or infection, unspecified (principal); R10.11 Right upper quadrant pain
CPT/HCPCS: 80053; 82150; 83690; 85025

== ENCOUNTER 2024-06-22 13:05 | Outpatient (POV) | payer MEDICARE, SELFPAY ==
--- NOTE | 2024-06-22 14:26 | A.OFFVIS_ITS ---
HPI Data of Consult Patient: new to practice Consult date: 06/22/24 Requesting Physician: Rani Spann APRN Primary Care Provider: Betty Antonio APRN Consult Narrative Reason for consult: Abdominal pain, chronic pancreatitis History of present illness: Ms. Mcbride is a 64 year old female who presents today as a new patient. She is a referral from Kennedi Antonio's office. Today she rates her pain a 7 out of 10. Patient states she has chronic pain throughout her abdomen related to chronic pancreatitis. Patient does also state that she is recently fallen and broken her left elbow and had surgery with Dr. Spann here at [facility]. Patient states that she has had the pancreatitis issue for approximately 30 years. She states that she has been in pain management in the past and did try injection therapy as well as having to pump's implanted at different time frames. She states that the first 1 was very positional and bothered her enough that she had to have it taken out. She states the second 1 was removed because it just did not seem to be working as well. Patient states that she has been in pain management at [facility] as well as [place]. Patient does state that she is scheduled for abdominal surgery on July 08. She states that it is supposed to be much more extensive then a Whipple and that she is trying to get established with a pain management for medication. Patient states that her surgery is going to be done by Dr. Jayme Wall. She states she is unsure whether or not if he is going to do postop pain meds or for how long. Patient has been on [place], pregabalin and lidocaine patches. Patient does have a history of hip replacement and heart history. Her Suleman has been reviewed. CC: Rani Spann APRN [facility] Disclaimer: The information contained in this section may have been updated after the patient was seen, as this information can be updated by other users. Medical History Abdominal pain Abnormal electrocardiogram [ECG] [EKG] Acute cystitis without hematuria Acute pancreatitis Bradycardia Closed right hip fracture Constipation Contusion, hip Depression Dyspnea Elevated blood pressure reading Encephalopathy Gastroesophageal reflux disease Hip fracture History of suicide attempt History of syncope Lower abdominal pain Marijuana abuse Memory loss Mood disorder Multiple lacunar infarcts Nausea Neuropathy Oral candidiasis Pancreatic disease Presence of pancreatic duct stent Rib pain on left side RUQ abdominal pain SIRS (systemic inflammatory response syndrome) Syncope and collapse Tobacco abuse Tobacco dependence syndrome Urinary tract infection Surgical History History of aortic valve replacement History of aortic valve replacement with porcine valve History of appendectomy History of hip replacement History of hysterectomy History of laparoscopic cholecystectomy History of repair of both hip joints History of tonsillectomy Family History Other Diabetes Hypertension Stroke Social History Smoking Status: Current every day smoker tobacco type: cigarettes packs per day: 1 second hand exposure: Yes alcohol intake: never substance use type: other current occupational status: retired Travel in the last 8 weeks: None household members: family and children housing: house current occupational exposures/hazards: No caffeine: Yes Review of Systems Review of Systems Review of systems:: pertinent systems reviewed and negative unless documented below Review of systems (narrative): Review of Systems: General: No recent weight changes, no fever, no sleep disturbances Respiratory: No cough, no shortness of air, no recurring pulmonary infections Cardiovascular/peripheral vascular: No chest pain, no palpitations, no edema, no shortness of breath Gastrointestinal: No new onset incontinence, normal bowel movements reported Genitourinary: No new onset incontinence Musculoskeletal: Abdominal pain Psychiatric: [Normal mood/affect] Neurological: [Denies weakness in extremities], [denies balance issues] Meds Home Medications and Allergies Home Medications ?Medication ?Instructions ?Recorded ?Confirmed ?Type lidocaine 4 % topical patch 1 patch topical DAILYP PRN Back 08/16/23 06/15/24 History (Aspercreme (lidocaine)) Pain fluticasone fur. 100 mcg-umeclid 1 inh inhalation DAILY Breathing 10/16/23 06/15/24 History 62.5 mcg-vilant 25 mcg Problems inhalat.powder (Trelegy Ellipta) ondansetron HCl 4 mg tablet 4 mg PO Q8HP PRN nausea and 10/16/23 06/15/24 History vomiting paroxetine HCl 40 mg tablet 40 mg PO DAILY Mood 90 days #90 11/12/23 06/15/24 Rx tabs pregabalin 200 mg capsule (Lyrica) 200 mg PO BID 30 days #60 caps 01/10/24 06/15/24 Rx hfkvrd-lyfuquqi-pudsnfm 1 cap PO TID #90 caps 03/17/24 06/15/24 Rx 25,000-79,000-105,000 unit capsule,delayed rel (Zenpep) temazepam 15 mg capsule 15 mg PO HS Insomnia 30 days #30 04/22/24 06/15/24 Rx caps buspirone 7.5 mg tablet 7.5 mg PO BID #60 tabs 05/19/24 06/15/24 Rx hydroxyzine HCl 25 mg tablet 25 mg PO TID PRN anxiety #90 tabs 05/19/24 06/15/24 Rx levetiracetam 500 mg tablet 500 mg PO BID 05/19/24 06/15/24 History pantoprazole 40 mg tablet,delayed 40 mg PO BID 05/19/24 06/15/24 History release azelastine 137 mcg (0.1 %) nasal 2 spray intranasal BID #30 mL 06/08/24 06/15/24 Rx spray hydrocodone 5 mg-acetaminophen 325 1 tab PO Q4-6H PRN post op pain 7 06/15/24 06/15/24 Rx mg tablet days #30 tabs polysaccharide iron complex 180 mg See Rx Instructions .Route 06/19/24 Rx iron capsule (Pro Fe) .COMPLEX #90 caps New Prescriptions to Start Prescriptions: Allergies Allergy/AdvReac Type Severity Reaction Status Date / Time levofloxacin [From LEVAQUIN] Allergy Unknown SEIZURES Verified 06/15/24 10:11 Objective Narrative: Physical Exam: General: Alert and oriented x3, no acute distress, pleasant and cooperative Lungs: Respirations even and unlabored, symmetrical chest expansion Eyes: PERRL Musculoskeletal: Flexion and extension of lumbar [spine] somewhat guarded secondary to pain Neurological: Speech clear, no gross sensory deficit Assessment and Plan *Assessment and plan (1) RUQ abdominal pain: Status: Acute Category: Medical Code(s): R10.11 - Right upper quadrant pain (2) Pancreatitis: Status: Acute Category: Medical Code(s): K85.90 - Acute pancreatitis without necrosis or infection, unspecified Plan Patient was counseled that we are an interventional pain clinic and that we do more injection therapy versus oral pain medications. She was told that I cannot make any guarantees of whether or not we would do any oral medications following her surgical procedure. She was counseled that now that she is an established patient that we would just go visit by visits to see if we can provide additional improvement. Patient acknowledges understanding. Patient was also counseled that she can always call other pain management including [facility] since she did have a pre-existing relationship with this group and that they may be able to do more oral medications then our office can. Patient will be given a 6-week follow-up for reevaluation of symptoms and plan of care. Patient has been instructed to contact the clinic with any concerns before the next appointment. Dr. Anthony has reviewed this note and agrees with this plan of care. This note was dictated using voice recognition software and make contain errors or omissions. All injections are used with Lidocaine or Bupivacaine and Depo Medrol.
[2024-06-22 14:41] VITALS: BP 102/66; PULSE 80; RESP 18; O2SAT 98; BMI 21.9
== END 2024-06-22 23:59 | disposition home or self-care (01) ==
PROVIDERS: PCP Nurse Practitioner Family; Visit Provider Nurse Practitioner Family
DX: R10.11 Right upper quadrant pain (principal); K85.90 Acute pancreatitis without necrosis or infection, unspecified; Z96.649 Presence of unspecified artificial hip joint; F17.210 Nicotine dependence, cigarettes, uncomplicated; Z79.899 Other long term (current) drug therapy
CPT/HCPCS: 99212; G0463

== ENCOUNTER 2024-07-17 13:54 | Outpatient (CLI) | payer MEDICARE, SELFPAY ==
--- NOTE | 2024-07-17 13:59 | XR_ITS ---
PROCEDURE INFORMATION: Exam: XR Chest Exam date and time: 07/17/2024 2:11 PM Age: 64 years old Clinical indication: Pain; Chest pressure; Additional info: Postoperative fever. . SOB TECHNIQUE: Imaging protocol: Radiologic exam of the chest. Views: 2 views. COMPARISON: No relevant prior studies available. FINDINGS: Lungs: See Pleural spaces finding. Pleural spaces: Perhaps small bilateral pleural effusions with associated basilar atelectasis. No focal consolidation. Heart/Mediastinum: Unremarkable. No cardiomegaly. Vasculature: Atherosclerotic disease of the aortic arch. Bones/joints: Status post sternotomy. IMPRESSION: Perhaps small bilateral pleural effusions with associated basilar atelectasis. No consolidation.
[2024-07-17 14:41] LABS: Basophils # 0.1 K/mm3 (0-0.2); Eosinophils # 0.4 K/mm3 (0.0-0.4); Eosinophils % 4.3 % (0.1-12.0); Hematocrit 33.5 % (37.0-47.0); Hemoglobin 11.2 g/dL (12.2-16.2); Lymphocytes # 1.6 K/mm3 (0.7-4.5); Lymphocytes % 16.3 % (10-50); Mean Corpuscular HGB Conc 33.3 g/dL (31.8-35.4); Mean Corpuscular Hemoglobin 29.9 pg (27.0-31.2); Mean Corpuscular Volume 89.6 fl (81-99); Mean Platelet Volume 7.5 fl (7.4-10.4); Monocytes # 0.4 K/mm3 (0.1-1.0); Monocytes % 4.6 % (1.7-9.3); Neutrophils % 73.7 % (37.0-80.0); Platelet Count 596 K/mm3 (142-424); Red Blood Count 3.74 M/mm3 (4.20-5.40); Red Cell Distribution Width 15.9 % (11.5-17.5); White Blood Count 9.5 K/mm3 (4.8-10.8)
[2024-07-17 14:56] LABS: Alanine Aminotransferase 21 U/L (12-78); Albumin Level 3.4 g/dl (3.5-5.0); Albumin/Globulin Ratio 1.2 (1.1-1.8); Alkaline Phosphatase 380 U/L (38-126); Amylase 33 U/L (30-110); Anion Gap 11.6 mEq/L (5-15); Aspartate Amino Transferase 31 U/L (14-36); Bilirubin,Total 0.5 mg/dl (0.2-1.3); Blood Urea Nitrogen 17 mg/dl (7-17); Calcium 8.7 mg/dl (8.4-10.2); Carbon Dioxide 24 mmol/L (22.0-30.0); Chloride 109 mmol/L (98-107); Estimated Glomerular Filt Rate 100 ml/min (>60); GFR (African American) 121 ML/MIN (>60); Globulin 2.9 g/dL (1.3-3.2); Glucose 80 mg/dl (74-100); Lipase 63 U/L (23-300); Potassium 4.6 mmoL/L (3.5-5.1); Sodium 140 mmol/L (136-145); Total Protein,Serum 6.3 g/dl (6.3-8.2)
== END 2024-07-17 23:59 | disposition home or self-care (01) ==
LOC: LAB 13:55
PROVIDERS: PCP Nurse Practitioner Family; Visit Provider Nurse Practitioner Family
DX: K85.90 Acute pancreatitis without necrosis or infection, unspecified (principal); R10.11 Right upper quadrant pain; T81.49XA Infection following a procedure, other surgical site, initial encounter
CPT/HCPCS: 36415; 71046; 80053; 82150; 83690; 85025; 87040; 87070; 87077; 87186; 87205

== ENCOUNTER 2024-07-18 10:02 | Outpatient (CLI) | payer MEDICARE, SELFPAY ==
[2024-07-18 10:16] LABS: Adenovirus F 40/41, stool Not Detected (NotDetected); Astrovirus Not Detected (NotDetected); Campylobacter Not Detected (NotDetected); Clostridium Difficile A/B, PCR Not Detected (NotDetected); Cryptosporidium Not Detected (NotDetected); Cyclospora Cayetanesis Not Detected (NotDetected); Entamoeba histolytica Not Detected (NotDetected); Enteroaggregative E coli Not Detected (NotDetected); Enteropathogenic E coli Not Detected (NotDetected); Enterotoxigenic E coli Not Detected (NotDetected); Giardia lamblia Not Detected (NotDetected); Norovirus Not Detected (NotDetected); Plesimonas Shigalloides, PCR Not Detected (NotDetected); Rotavirus A Not Detected (NotDetected); Salmonella, PCR Not Detected (NotDetected); Sapovirus Not Detected (NotDetected); Shiga-like toxin E coli Not Detected (NotDetected); Shigella Enterovasive E coli Not Detected (NotDetected); Vibrio Cholerae Not Detected (NotDetected); Vibrio, PCR Not Detected (NotDetected); Yersinia Entercolitica, PCR Not Detected (NotDetected)
== END 2024-07-18 23:59 | disposition home or self-care (01) ==
LOC: LAB.DROPOF 10:04
PROVIDERS: PCP Nurse Practitioner Family; Visit Provider Nurse Practitioner Family
DX: R19.7 Diarrhea, unspecified (principal)
CPT/HCPCS: 87506

== ENCOUNTER 2024-09-04 12:17 | Emergency (ER) | payer MEDICARE, SELFPAY ==
[2024-09-04 12:56] VITALS: BP 121/67; PULSE 74; RESP 15; TEMP 36.7; O2SAT 95; BMI 21.0
--- NOTE | 2024-09-04 13:03 | XR_ITS ---
FINAL REPORT CLINICAL HISTORY: fall FINDINGS: AP and frog leg views of the right hip were obtained. There is no acute fracture or dislocation. There are postoperative changes in the hips bilaterally. The hardware is intact. There is degenerative joint disease. IMPRESSION: Degenerative and postsurgical change without acute osseous abnormality. Reviewed, Interpreted and Dictated by Gwendolyn Wright MD Transcribed by Cassandra Burgos Authenticated and . [facility]
--- NOTE | 2024-09-04 13:03 | XR_ITS ---
FINAL REPORT CLINICAL HISTORY: fall COMPARISON: 01/16/2024 FINDINGS: Three views of the left shoulder were obtained. There is no fracture or dislocation. There is mild AC joint degenerative disease, unchanged from previous. Soft tissues are unremarkable. IMPRESSION: No acute osseous abnormality of the left shoulder. Reviewed, Interpreted and Dictated by Gwendolyn Wright MD Transcribed by Cassandra Burgos Authenticated and [facility]
--- NOTE | 2024-09-04 13:03 | XR_ITS ---
FINAL REPORT CLINICAL HISTORY: fall COMPARISON: 01/16/2024 FINDINGS: AP, oblique, and lateral views of the left elbow were obtained. Patient is status post interval ORIF of the distal humerus. 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 No joint effusion is identified. IMPRESSION: Postsurgical changes as above. Reviewed, Interpreted and Dictated by Gwendolyn Wright MD Transcribed by Cassandra Burgos Authenticated and [facility]
--- NOTE | 2024-09-04 13:03 | XR_ITS ---
FINAL REPORT CLINICAL HISTORY: fall FINDINGS: AP, oblique, and lateral views of the right elbow were obtained. There is no prior exam for comparison. There is no acute fracture or dislocation. Joint space is preserved. There is no joint effusion or other soft tissue abnormality. IMPRESSION: No acute osseous abnormality of the right elbow. Reviewed, Interpreted and Dictated by Gwendolyn Wright MD Transcribed by Cassandra Burgos Authenticated and [facility]
--- NOTE | 2024-09-04 13:03 | XR_ITS ---
FINAL REPORT CLINICAL HISTORY: fall FINDINGS: Three views of the right shoulder were obtained. There is no fracture or dislocation. There is mild AC joint degenerative disease. Soft tissues are unremarkable. IMPRESSION: No acute osseous abnormality of the right shoulder. Reviewed, Interpreted and Dictated by Gwendolyn Wright MD Transcribed by Cassandra Burgos Authenticated and [facility]
--- NOTE | 2024-09-04 13:22 | ED_ITS ---
Discharge Plan Disposition Patient Disposition: Home, Self-Care Prescriptions Prescriptions: No Action lidocaine [Aspercreme (lidocaine)] 4 % adhesive patch,medicated 1 patch topical DAILYP PRN (Reason: Back Pain) levetiracetam 500 mg tablet 500 mg PO BID Patient Comments: TAKE 1 TABLET BY MOUTH TWICE DAILY metoclopramide HCl 10 mg tablet 10 mg PO TID Zenpep 25,000-79,000- 105,000 unit capsule,delayed release(DR/EC) 1 cap PO TID Qty: 90 2RF Rx Instructions: administer with meals and/or snacks paroxetine HCl 40 mg tablet 40 mg PO DAILY 90 Days Qty: 90 1RF Pro Fe 180 mg iron capsule See Rx Instructions .ROUTE .COMPLEX Qty: 90 0RF Dose Instruction: Take 1 capsule by mouth once daily Rx Instructions: Take 1 capsule by mouth once daily hydrocodone-acetaminophen 5-325 mg tablet 1 tab PO Q4-6H PRN (Reason: post op pain) 7 Days Qty: 30 0RF pregabalin [Lyrica] 200 mg capsule 200 mg PO BID 30 Days Qty: 60 2RF pantoprazole 40 mg tablet,delayed release (DR/EC) See Rx Instructions .ROUTE .COMPLEX Qty: 180 0RF Dose Instruction: TAKE 1 TABLET BY MOUTH TWICE DAILY FOR STOMACH Rx Instructions: TAKE 1 TABLET BY MOUTH TWICE DAILY FOR STOMACH temazepam 15 mg capsule 15 mg PO HS 30 Days Qty: 30 2RF buspirone 7.5 mg tablet See Rx Instructions .ROUTE .COMPLEX Qty: 60 0RF Dose Instruction: Take 1 tablet by mouth twice daily Rx Instructions: Take 1 tablet by mouth twice daily hydroxyzine HCl 25 mg tablet See Rx Instructions .ROUTE .COMPLEX Qty: 90 0RF Dose Instruction: TAKE 1 TABLET BY MOUTH THREE TIMES DAILY NEEDED FOR ANXIETY Rx Instructions: TAKE 1 TABLET BY MOUTH THREE TIMES DAILY NEEDED FOR ANXIETY ondansetron HCl 4 mg tablet 4 mg PO Q8HP PRN (Reason: nausea and vomiting) Trelegy Ellipta 100-62.5-25 mcg blister with device 1 inh inhalation DAILY Referrals Follow up/Referrals: Betty Antonio APRN [Primary Care Provider] - See instructions Activity Restrictions/Add. Instructions Additional Instructions/Restrictions: No evidence of any acute fractures or dislocations please continue take [id number] medications as needed for your pain. Clinical Impressions Clinical Impression: Fall, Contusion of elbow, Right shoulder strain, Left shoulder strain, Strain of right hip Print Language Print Language: [place] Citizen Discharge ED Provider: Jignesh Barron General Adult HPI General Chief complaint: Fall Stated complaint: ao /3, arm pain Time Seen by Provider: 09/04/24 13:10 Mode of Arrival: Wheelchair Limitations: No Limitations Description of Symptoms (Recalled from ER Triage Doc. by RN): C/O bilateral arm and elbow pain and right hip pain after falling getting out of bed this am, denies hitting her head or any other injuries, no blood thinners History of Present Illness HPI narrative: 64-year-old here with complaint of injuries after a fall. States that she is chronically had some balance related issues and nothing out of the ordinary today but fell backwards mechanically. She did not lose consciousness but she landed onto her pelvic area on the right side complains of right hip and pelvis pain as well as bilateral elbow and shoulder pain. She is not on any anticoagulants. Did not hit her head did not have any cervical spine chest abdomen pelvis or other injuries. Has been able to ambulate since this happened. Related Data Home Medications ?Medication ?Instructions ?Recorded ?Confirmed lidocaine 4 % topical patch 1 patch topical DAILYP PRN Back 08/16/23 07/20/24 (Aspercreme (lidocaine)) Pain fluticasone fur. 100 mcg-umeclid 1 inh inhalation DAILY Breathing 10/16/23 07/20/24 62.5 mcg-vilant 25 mcg Problems inhalat.powder (Trelegy Ellipta) ondansetron HCl 4 mg tablet 4 mg PO Q8HP PRN nausea and 10/16/23 07/20/24 vomiting levetiracetam 500 mg tablet 500 mg PO BID 05/19/24 07/20/24 metoclopramide HCl 10 mg tablet 10 mg PO TID 07/20/24 07/20/24 Previous Rx's ?Medication ?Instructions ?Recorded paroxetine HCl 40 mg tablet 40 mg PO DAILY Mood 90 days #90 11/12/23 tabs polysaccharide iron complex 180 mg See Rx Instructions .Route 06/19/24 iron capsule (Pro Fe) .COMPLEX #90 caps hydrocodone 5 mg-acetaminophen 325 1 tab PO Q4-6H PRN post op pain 7 06/26/24 mg tablet days #30 tabs pregabalin 200 mg capsule (Lyrica) 200 mg PO BID 30 days #60 caps 06/26/24 pantoprazole 40 mg tablet,delayed See Rx Instructions .Route 07/13/24 release .COMPLEX #180 tabs kpkavk-[id number]-ltxnflu 1 cap PO TID #90 caps 07/20/24 25,000-79,000-105,000 unit capsule,delayed rel (Zenpep) temazepam 15 mg capsule 15 mg PO HS Insomnia 30 days #30 08/05/24 caps buspirone 7.5 mg tablet See Rx Instructions .Route 08/31/24 .COMPLEX #60 tabs hydroxyzine HCl 25 mg tablet See Rx Instructions .Route 09/04/24 .COMPLEX #90 tabs Allergies Allergy/AdvReac Type Severity Reaction Status Date / Time levofloxacin (From [facility]) Allergy Unknown SEIZURES Verified 07/20/24 08:39 [facility] Disclaimer: The information contained in this section may have been updated after the patient was seen, as this information can be updated by other users. Medical History RUQ abdominal pain Nausea Urinary tract infection Oral candidiasis Rib pain on left side Acute pancreatitis Presence of pancreatic duct stent Pancreatic disease Constipation Lower abdominal pain Neuropathy Depression Acute cystitis without hematuria Abdominal pain Abnormal electrocardiogram [ECG] [EKG] Dyspnea Tobacco dependence syndrome History of suicide attempt Mood disorder Tobacco abuse Marijuana abuse Multiple lacunar infarcts History of syncope Elevated blood pressure reading Bradycardia Memory loss Encephalopathy Contusion, hip Syncope and collapse SIRS (systemic inflammatory response syndrome) Gastroesophageal reflux disease Closed right hip fracture Hip fracture Surgical History History of repair of both hip joints History of appendectomy History of laparoscopic cholecystectomy History of hysterectomy History of tonsillectomy History of hip replacement History of aortic valve replacement History of aortic valve replacement with porcine valve Family History Other Diabetes Hypertension Stroke Social History Smoking Status: Current every day smoker tobacco type: cigarettes packs per day: 1 second hand exposure: Yes alcohol intake: never substance use type: other current occupational status: retired Travel in the last 8 weeks: None household members: family and children housing: house current occupational exposures/hazards: No caffeine: Yes Have you lived/traveled outside [place] in past 30 days?: No Contact w/someone who lives/traveled outside US past 30 days?: No Exposure to someone with infectious disease in past 14 days?: No Do you have a fever (greater than 100.4 F or 38 C)?: No Have you tested positive for COVID-19: No Exposed to someone with COVID-19 in past 14 days?: No Do you have a sore throat?: No Do you have a cough?: No Do you have any weakness?: No Do you have any diarrhea?: No Are you experiencing any unusual bleeding?: No Do you have any muscle aches/pain?: Yes Do you have any abdominal pain?: No Are you experiencing loss of taste or smell?: No Other Medical History Have you received the Flu Vaccine for this season: No Have you received the Pneumonia Vaccine: No ROS Obtained: Yes All systems reviewed & no additional complaints except as documented Physical Exam General General appearance: cachectic Head Head exam: atraumatic and normocephalic Neck Neck exam: Present full ROM; Absent meningismus Respiratory Respiratory exam: Present normal lung sounds bilaterally and respiratory distress Cardiovascular Cardiovascular exam: Present regular rate and normal rhythm Abdominal Exam Abdominal exam: Present soft; Absent distention or tenderness Extremities Exam Extremities exam: Present other (Patient has tenderness on bilateral elbows and shoulders but no soft tissue abnormalities and centrally normal range of motion she also has pain in her right hip and sacroiliac region but no midline spine tenderness no chest abdomen pelvis tenderness is) Neurological Exam Neurological exam: Present alert and oriented X3 Medical Decision Making Medical Records Screening: Per USPSTF and CDC recommendations, given the prevalence of disease in our region, it is our hospital?s policy to screen for HIV and viral Hepatitis for all patients aged 18 and over and those with ongoing risk factors. [place] Inquiry Pt receiving controlled substance: No Vital Signs: 09/04/24 12:56 Temperature 98.1 F Temperature Source Oral Pulse Rate [Left Radial] 74 Respiratory Rate 15 Blood Pressure [Right Arm] 121/67 Blood Pressure Mean [Right Arm] 85 Blood Pressure Position [Right Arm] Sitting 02 Sat by Pulse Oximetry 95 Orders (Tests/Meds): ORDERS Category Date Time Status XR elbow LT min 3V Stat Exams 09/04/24 13:03 Completed XR elbow RT min 3V Stat Exams 09/04/24 13:03 Completed XR hip RT 2-3V w/pelvis Stat Exams 09/04/24 13:03 Completed XR shoulder LT min 2V Stat Exams 09/04/24 13:03 Completed XR shoulder RT min 2V Stat Exams 09/04/24 13:03 Completed Medical Decision Narrative: Cachectic 64-year-old female presenting today after a fall. She has localized tenderness in bilateral elbows and shoulders and right hip and sacroiliac region. No head neck chest abdomen or pelvis or midline spine tenderness. Will get plain films of her right hip pelvis bilateral elbows and shoulders and reassess. Reassessment patient remains very stable x-rays were performed which I personally interpreted which shows no fracture or dislocation x-ray reads from radiology consistent with this as well. Supportive care discussed patient discharged in stable condition. Critical Care Critical Care Time Critical Care Time: No
--- NOTE | 2024-09-04 14:16 | PC.NURSE ---
Addendum entered by ELIZABETH Schwartz 09/04/24 14:18: on wrong pt Original Note: Pt. laying in bed. No needs at this time. Call light in reach
[2024-09-04 16:09] VITALS: BP 116/95; PULSE 67; RESP 16; TEMP 36.7; O2SAT 99
== END 2024-09-04 16:10 | disposition home or self-care (01) ==
PROVIDERS: Emergency Provider Student in an Organized Health Care Education/Training Program; PCP Nurse Practitioner Family
DX: S76.011A Strain of muscle, fascia and tendon of right hip, initial encounter (principal); S46.912A Strain of unspecified muscle, fascia and tendon at shoulder and upper arm level, left arm, initial encounter; S46.911A Strain of unspecified muscle, fascia and tendon at shoulder and upper arm level, right arm, initial encounter; S50.00XA Contusion of unspecified elbow, initial encounter; M79.601 Pain in right arm; M79.602 Pain in left arm; M25.521 Pain in right elbow; M25.522 Pain in left elbow; M25.551 Pain in right hip; M25.511 Pain in right shoulder; M25.512 Pain in left shoulder; W06.XXXA Fall from bed, initial encounter; Y93.89 Activity, other specified; Y92.003 Bedroom of unspecified non-institutional (private) residence as the place of occurrence of the external cause
CPT/HCPCS: 73030; 73080; 73502; 99283

== ENCOUNTER 2024-12-23 11:00 | Outpatient (RCR) | payer MEDICARE, SELFPAY | END 2024-12-23 23:59 | disposition home or self-care (01) | LOC: PT 11:00 | PROVIDERS: PCP Nurse Practitioner Family | DX: R29.3 Abnormal posture (principal) | CPT/HCPCS: 97112; 97163; 97530 ==

== ENCOUNTER 2025-01-19 16:25 | Outpatient (CLI) | payer MEDICARE, SELFPAY ==
[2025-01-19 14:28] LABS: Basophils # 0.1 K/mm3 (0-0.2); Eosinophils # 0.3 Kmm3 (0.0-0.4); Eosinophils % 2.8 % (0.1-12.0); Hematocrit 45.3 % (37.0-47.0); Hemoglobin 15.4 g/dL (12.2-16.2); Immature Granulocytes # 0.09 10^3uL; Immature Granulocytes % 0.8 %; Lymphocytes # 2.2 K/mm3 (0.7-4.5); Lymphocytes % 19.3 % (10-50); Mean Corpuscular Hemoglobin 30.3 pg (27.0-31.2); Mean Corpuscular Volume 89.2 fl (81-99); Monocytes # 0.5 K/mm3 (0.1-1.0); Monocytes % 4.3 % (1.7-9.3); Neutrophils # 8.1 K/mm3 (1.8-7.8); Neutrophils % 71.8 % (37.0-80.0); Nucleated Red Blood Cells # 0 10^3/uL; Nucleated Red Blood Cells % 0 %; Platelet Count 347 K/mm3 (142-424); Red Blood Count 5.08 M/mm3 (4.20-5.40); Red Cell Distribution Width-SD 49.1 fL; White Blood Count 11.3 K/mm3 (4.8-10.8)
[2025-01-19 14:54] LABS: Alanine Aminotransferase 16 U/L (12-78); Albumin Level 4.4 g/dl (3.5-5.0); Albumin/Globulin Ratio 1.7 (1.1-1.8); Alkaline Phosphatase 169 U/L (38-126); Amylase 49 U/L (30-110); Anion Gap 16.6 mEq/L (5-15); Aspartate Amino Transferase 24 U/L (14-36); Bilirubin,Total 0.5 mg/dl (0.2-1.3); Blood Urea Nitrogen 26 mg/dl (7-17); Calcium 9.4 mg/dl (8.4-10.2); Carbon Dioxide 17 mmol/L (22.0-30.0); Chloride 109 mmol/L (98-107); Estimated Glomerular Filt Rate 63 ml/min (>60); GFR (African American) 76 ML/MIN (>60); Globulin 2.6 g/dL (1.3-3.2); Glucose 102 mg/dl (74-100); Lipase 177 U/L (23-300); Potassium 3.6 mmoL/L (3.5-5.1); Sodium 139 mmol/L (136-145)
[2025-01-19 15:48] LABS: Iron 106 ug/dL (37-170)
[2025-01-19 15:59] LABS: Total Iron Binding Capacity 311 ug/dL (265-497)
[2025-01-19 16:26] LABS: Ferritin 144 ng/ml (11.1-264)
--- OUTSIDE RECORDS SUMMARY | 2025-01-19 16:27 | XMS_ITS | Continuity of Care Document ---
Author Organization [facility]. 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 Name Role Phone Unavailable Unavailable Unavailable Unavailable Unavailable Unavailable Unavailable Unavailable Unavailable Problems Tobacco user Onset:13-Feb-2022 [place] Dow MD Restless legs Onset:13-Feb-2022 [place] Dow MD Gastroesophageal reflux dise ase Onset:13-Feb-2022 Florida Dow MD Patient encounter status Onset:13-Feb-2022 Florida Dow MD Status:Acute Metabolic encephalopathy Onset:13-Feb-2022 Florida Dow MD Status:Acute Bipolar disorder Onset:13-Feb-2022 Florida Dow MD History of repair of hip alayna nt Onset:13-Feb-2022 Florida Dow MD Status:Acute Past history of ce sarean section Onset:13-Feb-2022 Florida Dow MD Status:Acute History of aortic valve repl acement Onset:13-Feb-2022 Florida Dow MD Status:Acute History of total hysterectom y Onset:13-Feb-2022 Florida Dow MD Status:Acute History of surgery Onset:13-Feb-2022 Florida Dow MD Status:Acute Bipolar disorder Onset:13-Feb-2022 Florida Dow MD Status:Acute History of cholecystectomy Onset:13-Feb-2022 Florida Dow MD Status:Acute History of appendectomy Onset:13-Feb-2022 Florida Dow MD Status:Acute Hypokalemia Onset:13-Feb-2022 Luis A Sanchez Status:Acute Exposure to biological agent by ingestion Onset:13-Feb-2022 Luis A Sanchez Status:Acute Overdose Onset:13-Feb-2022 Luis A Sanchez Status:Acute Altered mental status Onset:13-Feb-2022 Luis A Sanchez Status:Acute Alcohol abuse Onset:13-Feb-2022 [place] Dow MD Mental Status Cognitive function finding 14-Feb-2022 Functional Status Functional finding 13-Feb-2022 Functional finding 13-Feb-2022 Functional finding 13-Feb-2022 Functional finding 13-Feb-2022 Allergies and Adverse Reactions Levofloxacin(Allergy) Onset: 13-Feb-2022 Reaction:Hives Medications pantoprazole 40 MG Delayed R elease Oral Tablet;40 MG ORAL Daily Start:12-Feb-2022 Comments:40 mg PO DAILY Estrace;0.5 MG ORAL Daily Start:12-Feb-2022 Comments:0.5 mg PO DAILY Requip;0.5 MG ORAL Daily Start:12-Feb-2022 Comments:0.5 mg PO DAILY pregabalin 150 mg capsule;15 0 MG ORAL Three Times a Day Start:12-Feb-2022 Comments:150 mg PO TID Restoril;15 MG ORAL As Neede d Start:12-Feb-2022 Comments:15 mg PO PRN As Needed for PAIN Paroxetine HCl;20 MG ORAL Da rashid Start:12-Feb-2022 Comments:20 mg PO DAILY
== END 2025-01-19 23:59 | disposition home or self-care (01) ==
LOC: LAB.DROPOF 16:26
PROVIDERS: PCP Nurse Practitioner Family; Visit Provider Nurse Practitioner Family
DX: R10.10 Upper abdominal pain, unspecified (principal); R11.2 Nausea with vomiting, unspecified; R19.7 Diarrhea, unspecified; D64.9 Anemia, unspecified
CPT/HCPCS: 80053; 82150; 82728; 83540; 83550; 83690; 85025

== ENCOUNTER 2025-01-20 09:39 | Outpatient (CLI) | payer MEDICARE, SELFPAY ==
--- NOTE | 2025-01-20 09:30 | CT_ITS ---
FINAL REPORT TECHNIQUE: Pre- and postcontrast images of the abdomen were performed by computed tomography. Multiplanar reconstructions in the sagittal and coronal planes were performed both pre and postcontrast enhancement. This study was performed with techniques to keep radiation doses as low as reasonably achievable (ALARA). Individualized dose reduction techniques using automated exposure control or adjustment of mA and/or kV according to the patient's size were employed. CLINICAL HISTORY: Nausea, vomiting, diarrhea, hx of large gallstone COMPARISON: Prior CT abdomen and pelvis 12/20/2023 FINDINGS: CT ABDOMEN WITH AND WITHOUT CONTRAST: Precontrast enhancement, no renal stone disease is present. Postcontrast enhancement, pneumobilia is present in the liver. The gallbladder has been surgically resected. There is mild fatty infiltration of the liver. The spleen is unremarkable. The adrenals are normal. The pancreas is unremarkable. The kidneys enhance appropriately, with mild left renal scarring present. There is a small lower pole left renal cyst noted. There is no evidence of bowel obstruction, adenopathy, or ascites. IMPRESSION: Chronic changes are present in the abdomen as described, with no acute intra-abdominal abnormality identified. Reviewed, Interpreted and Dictated by Mat Brady MD Transcribed by Franci Velazco Authenticated and [facility]
[2025-01-20] MEDS: SODIUM CHLORIDE 0.9% 10ML SYR (RAD ONLY) 10 ML IV (09:57)
[2025-01-20] MEDS: IOPAMIDOL-370 (76%);100ML BOTTLE 75 ML IV (09:57)
== END 2025-01-20 23:59 | disposition home or self-care (01) ==
LOC: RAD 09:40
PROVIDERS: PCP Nurse Practitioner Family; Visit Provider Nurse Practitioner Family
DX: R10.10 Upper abdominal pain, unspecified (principal); R11.2 Nausea with vomiting, unspecified; R19.7 Diarrhea, unspecified; Z87.19 Personal history of other diseases of the digestive system
CPT/HCPCS: 74170; Q9967

== ENCOUNTER 2025-02-19 09:41 | Outpatient (CLI) | payer MEDICARE, SELFPAY ==
--- OUTSIDE RECORDS SUMMARY | 2025-02-02 10:00 | XMS_ITS | Encounter Summary ---
Author Organization [facility] Address [address] [place] [address] Care Team Providers Care Dowel Pin Worker Name Role Phone Betty Antonio Primary Care Provider [phone] Source Comments This information has been disclosed to you from confidential records protectfrom disclosure by state law. You shall make no further disclosure of thisinformation without the specific, written, and informed release of theindividual to whom it pertains, or as otherwise permitted by law. A generalauthorization for the release of medical or other information is not sufficientfor the purposes of the release of HIV test results or diagnoses. [id number] Health Reason for Referral * Therapy (Routine) - New Request Specialty Diagnoses / Procedures Referred By Contac t Referred To Contact Diagnoses Postural imbalance Ana Lopez PA [address] [place] [address] Phone: tel: fax: Referral ID Status Reason Start Date Expiration Date V isits Requested Visits Authorized [id number] New Request 02/02/2025 08/01/2025 1 1 Reason for Visit * Reason Comments Dizziness Follow-up * Auth/Cert (Routine) Specialty Diagnoses / Procedures Referred By Contac t Referred To Contact Otolaryngology [facility] at [facility] [address] [facility] [address] [place] [address] Phone: tel: fax: Referral ID Status Reason Start Date Expiration Date Visits Re quested Visits Authorized [id number] 1 1 Encounter Details Date Type Department Care Team (Late st Contact Info) Description 02/02/2025 10:00 AM EDT Office Visit [facility] ENT at [facility] [address] [place] [address] Ana Lopez PA [address] [place] [address] Postural imbalance (Primary Dx); Tinnitus of both ears Social History Tobacco Use Types Packs/Day Years Used Date Smoking Tobacco: Every Day Cigarettes 1 6.5 Started: 2018 Smokeless Tobacco: Never Alcohol Use Standard Drinks/Week Comments Not Currently 0 (1 standard drink = 0.6 oz pur e alcohol) Utilities Answer Date Recorded In the past 12 months has [employer], gas, oil, or water [employer] threatened to shut off services in your home? No 07/11/2024 AUDIT-C Answer Date Recorded Q1: How often do you have a drink containing alcohol? Never 07/11/2024 Q2: How many drinks containi ng alcohol do you have on a typical day when you are drinking? Patient does not drink Q3: How often do you have si x or more drinks on one occasion? Never 07/11/2024 PHQ-2 Answer Date Recorded PHQ-2 Total Score 0 10/01/2024 Hunger Vital Sign Answer Date Recorded Within the past 12 months, y ou worried that your food would run out before you got the money to buy more. Never true 07/11/20 24 Within the past 12 months, t he food you bought just didn't last and you didn't have money to get more. Never true 07/11/2024 PRAPARE - Transportation Answer Date Re corded In the past 12 months, has l ack of transportation kept you from medical appointments or from getting medications? No 05/2024 In the past 12 months, has l ack of transportation kept you from meetings, work, or from getting things needed for daily living? No 07/11/2024 Housing Stability Vital Sign Answer Gabriel e Recorded In the last 12 months, was t here a time when you were not able to pay the mortgage or rent on time? No 07/11/2024 In the past 12 months, how m any times have you moved where you were living? 0 07/11/2024 At any time in the past 12 m [facility], were you homeless or living in a mcc (including now)? No 07/11/2024 Yearly Questionnaire Answer Date Record ed Do you need any assistance w ith obtaining housing, meals, medication, transportation or medical equipment? No 10/01 Assistance needed for: Not on file 5 Yearly Questionnaire Answer Date Record ed Do you need any assistance w ith obtaining housing, meals, medication, transportation or medical equipment? No 10/01 Assistance needed for: Not on file 5 Yearly Questionnaire Answer Date Record ed Do you need any assistance w ith obtaining housing, meals, medication, transportation or medical equipment? No 10/01 Assistance needed for: Not on file 5 Comments No Sex and Gender Information Value Date Recorded Sex Assigned at Female 01/01/2024 11:14 AM EDT Legal Sex Female 1:33 PM EDT Gender Identity Female 01/01/2024 11:14 AM EDT Sexual Orientation Not on file documented as of this encounter Last Filed Vital Signs Vital Sign Reading Time Taken Comments Blood Pressure 128/72 02/02/2025 10:04 AM EDT Pulse 66 02/02/2025 10:04 AM EDT Temperature - - Respiratory Rate - - Oxygen Saturation 98% 02/02/2025 10: 04 AM EDT Inhaled Oxygen Concentration 98% 10/2024 10:04 AM EDT Weight 53.9 kg (118 lb 14.4 oz) 025 10:04 AM EDT Height 157.5 cm (5' 2 ) 02/02/2025 10:0 4 AM EDT Body Mass Index 21.75 02/02/2025 10:04 AM EDT documented in this encounter Patient Instructions * Patient Instructions* DANIEL Killian - 02/02/2025 10:00 AM EDT Assessment & Plan Vestibular dysfunction Improvement in vertigo, persistent balance issues. Prior PT partially effective, specialized therapy needed. - Refer to vestibular-certified physical therapy at [facility]. - Obtain records from [facility] to review Dizziness Handicap Index and Souza score. Migraine with and without aura, and migraine aura without headache Frequent unilateral headaches with visual aura, suggestive of migraine with aura. Propranolol proposed for symptom management. Aspirin use considered with GI bleeding risk due to peptic ulcer and acid reflux. - Initiate baby aspirin 81 mg every other day with primary care approval. - Start propranolol 10 mg at night, increase to 10 mg twice daily after 3-4 days if tolerated, thento 10 mg three times daily if well tolerated. - Monitor for side effects such as fatigue and lightheadedness. - Communicate with primary care provider regarding aspirin use and monitor for any increase in acidreflux or signs of GI bleeding. Acid reflux Managed with Protonix, concern for GI bleeding with aspirin use. Pepcid added for symptom control. - Add Pepcid to current regimen, timing flexible with Protonix doses. documented in this encounter Progress Notes * DANIEL Killian - 02/02/2025 10:00 AM EDT Vitals: 02/02/25 1004 BP: 128/72 BP Location: Left upper arm Patient Position: Sitting BP Cuff Size: Regular Pulse: 66 SpO2: 98% Weight: 118 lb 14.4 oz (53.9 kg) Height: 5' 2 (1.575 m) Chief Complaint Patient presents with Dizziness Follow-up Subjective History of Present Illness: Patient ID: Caitlyn Mcbride is a 64 y.o. female History of Present Illness Catilyn Mcbride is a 64 year old female who presents with persistent headaches and visual disturbances. She experiences severe headaches three to four times daily over the past two and a half weeks. These headaches are pounding and unilateral, primarily affecting the right side of her head, lasting approximately fifteen minutes. They are sometimes accompanied by nausea. No light or sound sensitivity. She describes visual disturbances, including kaleidoscope-like effects in her left eye and temporary blackouts in either eye, lasting up to twenty minutes. These visual symptoms are not associated with her headaches. The kaleidoscope effect starts from the outside and moves inward. Her vertigo symptoms have improved, with less spinning sensation compared to previous visits. However, she continues to experience significant balance issues, requiring assistance or support while walking. She has visited multiple physical therapy locations including [facility], [facility], and [place], but has not continued therapy since her last visit to [facility], where she felt the treatment was inadequate. She has a history of gastric bleeding and GI ulcers, and has recently developed acid reflux, which began this week. She is currently taking Protonix twice daily and has previously used Pepcid. She is not currently on any blood pressure medications and does not take daily aspirin. She is not on atorvastatin or any cholesterol medication, although there was a mention of a past prescription by Dr. Brown. Her primary care physician is Dr. Antonio, who recently conducted a lipid panel, although the results are not available in the current system. 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 Past Surgical History: She has a past surgical history that includes upper eus (N/A, 01/07/2024); Tonsillectomy; Appendectomy; Cholecystectomy; Hysterectomy; Adenoidectomy; Breast biopsy; Cardiac valuve replacement; section; Bile duct stent placement (02/25/2023); ERCP (12/10/2023); Left Heart Cath (N/A, 04/13/2024); and lfcv-[id number]-lathas procedure (N/A, 07/08/2024). Social History: She reports that she has been smoking cigarettes. She started smoking about 6 years ago. She has a 6.4 pack-year smoking history. She has never used smokeless tobacco. She reports that she does not currently use alcohol. She reports current drug use. Drug: Marijuana. Physical Exam: General: Well-developed, well-nourished female in no acute distress. I was able to converse well with the patient. The patient is able to answer questions adequately and appropriately. Psychiatric: NL mood and affect. A+O x 4. Physical Exam HEENT: Ears normal Neurologic: Facial nerve function grade I. Other cranial nerves grossly WNL. Procedure Note: Otomicroscopic exam was done of both EAC's: Testing: Results LABS Vitamin D: 57 RADIOLOGY MRI: No structural abnormalities (04/2024) See last note for full impression. LABS CMP: normal (03/2024) Lab Results Component Value Date ANVD21S 57.1 04/09/2024 Assessment and Plan: Assessment & Plan Vestibular dysfunction Improvement in vertigo, persistent balance issues. Prior PT partially effective, specialized therapy needed. - Refer to vestibular-certified physical therapy at [facility]. - Obtain records from [facility] to review Dizziness Handicap Index and Souza score. Migraine with and without aura, and migraine aura without headache Frequent unilateral headaches with visual aura, suggestive of migraine with aura. Propranolol proposed for symptom management. Aspirin use considered with GI bleeding risk due to peptic ulcer and acid reflux. - Initiate baby aspirin 81 mg every other day with primary care approval. - Start propranolol 10 mg at night, increase to 10 mg twice daily after 3-4 days if tolerated, thento 10 mg three times daily if well tolerated. - Monitor for side effects such as fatigue and lightheadedness. - Communicate with primary care provider regarding aspirin use and monitor for any increase in acidreflux or signs of GI bleeding. Acid reflux Managed with Protonix, concern for GI bleeding with aspirin use. Pepcid added for symptom control. - Add Pepcid to current regimen, timing flexible with Protonix doses. LOS: Number and Complexity of Problems Addressed 1 acute, uncomplicated illness or injury Amount and/or Complexity of Data to be Reviewed and Analyzed 1 unique test ordered Risk of Complications and/or Morbidity or Mortality of Patient Management Moderate Time I spent a total of 30 minutes on the day of the visit. documented in this encounter Plan of Treatment Scheduled Referrals Name Type Priority Associated Diagnoses Orde r Schedule Amb referral to Physical Therapy Outpatient Referral Routine Postural imbalance Ordered: 02/02/2025 documented as of this encounter Visit Diagnoses Diagnosis Postural imbalance- Primary Tinnitus of both ears Unspecified tinnitus documented in this encounter Care Teams Dowel Pin Worker Relationship Specialty Start Date End Date Betty Antonio [facility] [place] [address] [address] [id number] PCP - General 12/14/23 documented as of this encounter
--- OUTSIDE RECORDS SUMMARY | 2025-02-22 09:47 | XMS_ITS | Continuity of Care Document ---
Author Organization [facility]. If a dditional information is needed, contact Health Information Management at [phone] Address [address] [place] [address] Phone Care Team Providers Care Residence Supervisor Name Role Phone Unavailable Unavailable Unavailable Unavailable Unavailable Unavailable Unavailable Unavailable Unavailable Problems Tobacco user Onset:13-Feb-2022 [place] Dow MD Restless legs Onset:13-Feb-2022 [place] Dow MD Gastroesophageal reflux dise ase Onset:13-Feb-2022 [place] Dow MD Patient encounter status Onset:13-Feb-2022 Florida Dow MD Status:Acute Bipolar disorder Onset:13-Feb-2022 [place] Dow MD Metabolic encephalopathy Onset:13-Feb-2022 Florida Dow MD Status:Acute History of repair of hip alayna nt Onset:13-Feb-2022 Florida Dow MD Status:Acute History of total hysterectom y Onset:13-Feb-2022 Florida Dow MD Status:Acute History of aortic valve repl acement Onset:13-Feb-2022 Florida Dow MD Status:Acute Past history of ce sarean section Onset:13-Feb-2022 Florida Dow MD Status:Acute History of surgery Onset:13-Feb-2022 Folrida Dow MD Status:Acute History of appendectomy Onset:13-Feb-2022 Florida Dow MD Status:Acute History of cholecystectomy Onset:13-Feb-2022 Florida Dow MD Status:Acute Bipolar disorder Onset:13-Feb-2022 Florida Dow MD Status:Acute Overdose Onset:13-Feb-2022 Luis A Sanchez Status:Acute Exposure to biological agent by ingestion Onset:13-Feb-2022 Luis A Sanchez Status:Acute Altered mental status Onset:13-Feb-2022 Luis A Sanchez Status:Acute Hypokalemia Onset:13-Feb-2022 Luis A Sanchez Status:Acute Alcohol abuse [...]
--- OUTSIDE RECORDS SUMMARY | 2025-02-22 09:57 | XMS_ITS | Clinical Summary ---
Author Organization [facility] Address [address] [place] [address] Phone Care Team Providers Care Cosmetic Surgeon Name Role Phone Unavailable Unavailable Conditions or Problems No information available. Medications No information available. Medications Administered No information available. Allergies, Adverse Reactions, Alerts No information available. Results No information available. Plan of Care No information available. Procedures No information available. Vital Signs No information available. Immunizations No information available. Advance Directives No information available.
--- OUTSIDE RECORDS SUMMARY | 2025-02-22 09:58 | XMS_ITS | Clinical Summary ---
Author Organization [facility] Address [address] [place] [address] Care Team Providers Care Fig Bar Machine Operator Name Role Phone Betty Antonio Primary Care Provider [phone] Source Comments This information has been disclosed to you from confidential records protectedfrom disclosure by state law. You shall make no further disclosure of thisinformation without the specific, written, and informed release of theindividual to whom it pertains, or as otherwise permitted by law. A generalauthorization for the release of medical or other information is not sufficientfor the purposes of therelease of HIV test results or diagnoses. [id number] Allergies Active Allergy Reactions Criticality Noted Date Comments Levofloxacin 12/14/2023 Medications PRO FE 180 mg iron Cap Take 1 capsule (180 mg total) by mouth daily. AM 4 Active magnesium oxide (MAG-OX) 400 mg tablet Take 1 tablet (400 mg total) by mouth in the morning and at bedtime. 4 Active pantoprazole (PROTONIX) 40 MG tablet TAKE 1 TABLET BY MOUTH TWICE DAILY FOR STOMACH Active PARoxetine (PAXIL) 40 MG tablet Take 1 tablet (40 mg total) by mouth every morning. 1 Active temazepam (RESTORIL) 15 mg capsule TAKE 1 CAPSULE BY MOUTH AT BEDTIME NIGHTLY FOR INSOMNIA Active nicotine (NICODERM CQ) 21 mg/[address] 1 patch onto the skin daily. 28 patch 4 Active nicotine polacrilex (COMMIT) [address] 4 mg inside cheek every hour as needed. 100 lozenge 4 Active nicotine (NICODERM CQ) 14 mg/[address] 1 patch onto the skin daily. Start after completed with the 21 mg patches. 28 patch 4 Active atorvastatin (LIPITOR) 40 MG tablet Take 1 tablet (40 mg total) by mouth at bedtime. 30 tablet 04/21/2024 4:28 PM EDT 4 Active senna-docusate (SENNA-S) 8.6-50 mg per tablet Take 1 tablet by mouth 2 times a day. 30 tablet 04/21/2024 4:28 PM EDT 4 Active cholecalciferol , vitamin D3, 250 mcg (10,000 unit) Cap Take 1 tablet by mouth daily. 4 Active vitamin E, dl,tocopheryl acet, (VITAMIN E, DL, ACETATE,) 45 mg (100 unit) Cap Take 1 capsule (100 Units total) by mouth daily. 4 Active pregabalin (LYRICA) 200 MG capsule Take 1 capsule (200 mg total) by mouth 2 times a day. Active busPIRone (BUSPAR) 7.5 MG tablet Take 1 tablet (7.5 mg total) by mouth 2 times a day. Active hydrOXYzine HCL (ATARAX) 25 MG tablet Take 1 tablet (25 mg total) by mouth 2 times a day. Active levETIRAcetam (KEPPRA) 500 MG tabletIndicatio ns:Abnormal EEG Take 1 tablet (500 mg total) by mouth 2 times a day. 180 tablet 3 4 Active metoclopramide HCl (REGLAN) 10 MG tablet Take 1 tablet (10 mg total) by mouth every 6 hours. 120 tablet 07/14/2024 5:44 PM EST 4 Active propranoloL (INDERAL) 10 MG tablet Take 1 tablet (10 mg total) by mouth at bedtime for 4 days, THEN 1 tablet (10 mg total) 2 times a day for 4 days, THEN 1 tablet (10 mg total) 3 times a day for 22 days. 78 tablet 5 03/04/20 25 Active Active Problems Patient Care Coordination No te Formatting of this note migh t be different from the original. [employer] 1217.Julio Winston MSN RN. she/hers. Health Infectious Diseases -- OPAT (Outpatient Parenteral Antimicrobial Therapy). [phone]. Problem Noted Date Diagnosed Date Tinnitus of both ears 02/02/2025 Chronic pancreatitis 06/16/2024 Fungemia 04/06/2024 Subacute bacterial endocarditis 02/26/2024 Encounters Date Type Department Care Team Description 02/08/2025 Telephone [facility] Cardiology at [facility] Office [address] [place] [phone] Radha Alvarez MD 02/02/2025 10:00 AM EDT Office Visit [facility] ENT at [facility] [address] [place] [phone] Ana Lopez PA Postural imbalance (Primary Dx); Tinnitus of both ears 12/23/2024 Telephone [facility] Otolaryngology at [facility] [address] [place] [address] Ana Lopez PA 11/30/2024 Telephone [facility] Otolaryngology at [facility] [address] [place] [address] Ana Lopez PA from Last 3 Months Family History Medical History Relation Comments Hypertension Brother Depression Father Diabetes Father Hypertension Father Relation Status Comments Brother Father Social History Tobacco Use Types Packs/Day Years Used Date Smoking Tobacco: Every Day Cigarettes 1 6.5 Started: 2018 Smokeless Tobacco: Never Tobacco Cessation:Ready to Q uit: Not Asked; Counseling Given: Not Answered Alcohol Use Standard Drinks/Week Comments Not Currently 0 (1 standard drink = 0.6 oz pur e alcohol) Utilities Answer Date Recorded In the past 12 months has [employer], gas, oil, or water [employer] threatened to shut off services in your [...] any time in the past 12 m [facility], were you homeless or living in a long-term (including now)? No 07/11/2024 Yearly Questionnaire Answer Date Record ed Do you need any assistance w ith obtaining housing, meals, medication, transportation or medical equipment? No 10/01 Assistance needed for: Not on file Yearly Questionnaire Answer Date Record ed Do [...] AM EDT Sexual Orientation Not on file Last Filed Vital Signs Vital Sign Reading Time Taken Comments Blood Pressure 128/72 02/02/2025 10:04 AM EDT Pulse 66 02/02/2025 10:04 AM EDT Temperature 36.4 C (97.6 F) 10/01/2024 9:42 AM EST Respiratory Rate 18 10/01/2024 9:42 AM EST Oxygen Saturation 98% 02/02/2025 10: 04 AM EDT Inhaled Oxygen Concentration 98% 10/2024 10:04 AM EDT Weight 53.9 kg (118 lb 14.4 oz) 025 10:04 AM EDT Height 157.5 cm (5' 2 ) 02/02/2025 10:0 4 AM EDT Body Mass Index 21.75 02/02/2025 10:04 AM EDT Plan of Treatment Health Maintenance Due Date Last Done Comments Abnormal Colonoscopy Follow Up 1958 Pulmonary Function Testing 1958 Tobacco Cessation Readiness 1958 Immunization: Pneumococcal ( 1 of 2 - PCV) 1977 Immunization: DTaP/Tdap/Td ( 1 - Tdap) 11/08/1996 11/07/1996 Mammogram (MyChart) 1998 Cologuard (FIT-DNA) 2003 Colonoscopy 2003 Colorectal Cancer Screening (MyChart) 2003 Stool Testing (gFOBT) 2003 Immunization: Zoster (1 of 2) 02/15/2008 Osteoporosis Screening (DXA Scan) 02/15/2008 Immunization: RSV (Adult) (1 - Risk 60-74 years 1-dose series) 2018 Immunization: COVID-19 ( season) 2024 09/05/2021, 01/10/2021 Immunization: Influenza (MyC katz) (Season Ended) 2025 09/05/2021, 06/06/2020, 09/12/2015 Renal Function/GFR 07/14/2025 07/14/2024, 1 09/12/2023, 07/12/2024, Additional history exists Depression Screening 10/01/2025 10/01/2024, 07/23/2024, 05/21/2024, Additional history exists Hepatitis C Screening (MyChart) Completed 4 Procedures Procedure Name Priority Date/Time Associated Diagnosis Comments BASIC METABOLIC PANEL Routine 07/14/2024 3:28 AM EST ED HCV AB REFLEX TO HCV QUANT Routine 12/14/2023 3:11 PM EDT from Last 3 Months or Most Recently Relevant to Health Maintenance Results * (ABNORMAL) Basic metabolic panel (07/14/2024 3:28 AM EST) Sodium 144 133 - 146 mmol/L 07/14/2024 4:00 AM EST [facility] Potassium 4.0 3.5 - 5.3 mmol/L 07/14/2024 4:00 AM EST [facility] Chloride 113(H) 98 - 110 mmol/L 07/14/2024 4:00 AM EST [facility] CO2 20(L) 21 - 33 mmol/L 07/14/2024 4:00 AM [facility] Anion Gap 11 3 - 16 mmol/L 07/14/2024 4:00 AM [facility] BUN 13 7 - 25 mg/dL 07/14/2024 4:00 AM [facility] Creatinine 0.58(L) 0.60 - 1.30 mg/dL 07/14/2024 4:00 AM [facility] Glucose 96 70 - 100 mg/dL 07/14/2024 4:00 AM [facility] Calcium 8.5(L) 8.6 - 10.3 mg/dL 07/14/2024 4:00 AM [facility] Osmolality, Calculated 298 278 - 305 mOsm/kg 07/14/2024 4:00 AM EST [facility] EGFR >90 07/14/2024 4:00 AM [facility] Comment: As of 2021, the estimated GFR is calculated using the 2020 Chronic Kidney Disease Epidemiology Collaboration (CKD-EPI) equation. In line with the NKF-ASN Task Force Recommendations, this equation does not include a coefficient for race. A single eGFR value is calculated for each patient. The reference interval is >60 mL/min/1.73m2. eGFR values greater than 90 will be reported as >90mL/min/1.73m2. Reference: Barry C, Fredrick M, Gigi DC, Yoly ND, Jose [place], Baldo [place], et al. A Unifying Approach for GFR Estimation: Recommendations of the NKF-ASN Task Force on Reassessing the inclusion of Race in Diagnosing Kidney Disease. Am J Kidney Dis. 2020. GFR is estimated using creatinine, age, and sex. Patient's values should be interpreted as a trend. Below 90 mL/min/1.73m2, the patient may have renal disease. For additional information: www.kidney.org Plasma 07/14/2024 3:28 AM EST 07/14/2024 3:32 AM EST us Nilson Gonzales MD LAB BLOOD ORDERABLES Final Result Performing Organization Address [facility] Co de Phone Number [facility] [address] [facility] * ED HCV Ab Reflex To HCV Quant (12/14/2023 3:11 PM EDT) HCV Ab Nonreactive Nonreactive 12/14/2023 4:24 PM EDT [facility] Comment:Health Department no tified in accordance with reportable infectious disease guidelines. HCVAB Number 0.04 0.00 - 0.79 S/CO 12/14/2023 4:24 PM EDT [facility] Serum 12/14/2023 3:11 PM EDT 12/14/2023 3:24 PM EDT us Olivia Estevez MD LAB BLOOD ORDERABLES Final Resul t Performing Organization Address City/[facility]/ZIP Co de Phone Number [facility] [address] [facility]. [address] from Last 3 Months or Most Recently [place] [id number] [employer] CHOICE O MEDICARE [facility] Care Address: [address] [address] Advance Directives For more information, please contact: [phone] * Full Code (Latest Code Status on File) Date Activated Date Inactivated Comments 07/08/2024 2:33 PM 07/14/2024 11:02 PM Question Answer Comments Intubate for Resp Distress: Yes Initiate CPR/ACLS in event of cardiac arrest: Alvaro s * Full Code Date Activated Date Inactivated Comments 04/29/2024 7:43 AM 05/02/2024 3:21 PM * Full Code Date Activated Date Inactivated Comments 04/04/2024 9:23 PM 04/21/2024 9:00 PM * Full Code Date Activated Date Inactivated Comments 02/21/2024 6:53 PM 02/27/2024 12:09 AM Care Teams Fig Bar Machine Operator Relationship Specialty Start Date End Date Betty Antonio [facility] [address] [address] PCP - General 12/14/23
--- OUTSIDE RECORDS SUMMARY | 2025-02-22 09:58 | XMS_ITS | Encounter Summary ---
Author Organization [facility] Address [facility] [place] [address] Care Team Providers Care Multi Share Program Coordinator Name Role Phone Betty Antonio Primary Care Provider [phone] Source Comments This information has been disclosed [...] release of HIV test results or diagnoses. [id number] Health Encounter Details Date Type Department Care Team (Late st Contact Info) Description 12/23/[address] [facility] Otolaryngology at [facility] [address] [place] [address] Ana Lopez PA [address] [place] [address] Social History Tobacco Use Types Packs/Day Years Used Date Smoking Tobacco: Every Day Cigarettes 1 6.5 Started: 2019 Smokeless Tobacco: Never Alcohol Use Standard Drinks/Week Comments Not Currently 0 (1 standard drink = 0.6 oz pur e alcohol) Utilities Answer Date Recorded In the past 12 months has [employer] electric, gas, oil, or water company threatened to shut off services in your home? No 07/11/2024 AUDIT-C Answer Date Recorded Q1: How often do you have a drink containing alcohol? Never 07/11/2024 Q2: How many drinks containi ng alcohol do you have on a typical day when you are drinking? Patient does not drink 4 Q3: How often do you have si [...] any time in the past 12 m [facility], were you homeless or living in a intermediate (including now)? No 07/11/2024 Yearly Questionnaire Answer [...] on file documented as of this encounter Miscellaneous Notes * Telephone Encounter - Scooter Richey MA - 12/30/2024 2:32 PM EDT Cancelled 12/31 testing as pt is on medications that would affect results. Informed pt I would be in contact to reschedule * Telephone Encounter - Scooter Richey MA - 12/30/2024 11:06 AM EDT Called pt, relayed that Ana would like VNG/Platform testing prior to 02/02 appt. Scheduled both tests 12/31, pt aware there is gap between appts. * Telephone Encounter - Vero Montero MA - 12/29/2024 3:52 PM EDT Called [facility] Spoke to Zita she will fax everything to [phone] * Telephone Encounter - Vero Montero MA - 12/29/2024 3:47 PM EDT Per Ana Let's obtain a VNG and Platform prior to next visit, same day if possible. What PT location did sheend up going to? I would like to review PT notes. Patient went to [facility] Can someone please call her to get set up with VNG and Platform prior to next visit, same day if possible. * Telephone Encounter - DANIEL Killian - 12/29/2024 12:27 PM EDT Let's obtain a VNG and Platform prior to next visit, same day if possible. What PT location did sheend up going to? I would like to review PT notes. * Telephone Encounter - DANIEL Killian - 12/29/2024 12:25 PM EDT 02/02 is sufficient. * Telephone Encounter - Vero Montero MA - 12/23/2024 8:10 AM EDT Patient is calling in because she feels like the therapy isn't helping and wants to make appointment sooner to see other options. Please advise documented in this encounter Plan of Treatment Not on file documented as of this encounter Visit Diagnoses Not on filedocumented in this encounter Care Teams Multi Share Program Coordinator Relationship Specialty Start Date End Date Betty Antonio [address] [place] [address] [place] [address] PCP - General 12/14/23 documented as of this encounter
--- OUTSIDE RECORDS SUMMARY | 2025-02-22 09:58 | XMS_ITS | Clinical Summary ---
Author Organization [facility] Address [address] [place] [address] Care Team Providers Care Park Keeper Name Role Phone Leila Townsend MD Primary Care Provider + [phone] Social History Tobacco Use Types Packs/Day Years Used Date Smoking Tobacco: Never Assessed Comments Unknown Sex and Gender Information Value Date Recorded Sex Assigned at Not on file Legal Sex Female 3:11 PM EDT Gender Identity Not on file Sexual Orientation Not on file Plan of Treatment Not on file Insurance [employer] Care Teams Park Keeper Relationship Specialty Start Date End Date Leila Townsend MD [address] [facility] PCP - General Family Medicine 07/12/14
--- OUTSIDE RECORDS SUMMARY | 2025-02-22 09:58 | XMS_ITS | Clinical Summary ---
Author Organization [facility] Address [address] [facility] [place] [address] Phone Care Team Providers Care Cisco Certified Network Professional Name Role Phone Unavailable Primary Care Provider Unavailabl e Social History Tobacco Use Types Packs/Day Years Used Date Smoking Tobacco: Never Assessed Comments Unknown Sex and Gender Information Value Date Recorded Sex Assigned at Not on file Legal Sex Female 7:04 PM EDT Gender Identity Not on file Sexual Orientation Not on file Plan of Treatment Health Maintenance Due Date Last Done Comments Annual Wellness Exam 1961 Hepatitis C Screening 02/15/1976 DTaP/TDaP/Td (1 - Tdap) 1977 Breast Cancer Screening 1998 Cologuard 2003 Colon Cancer Screening 2003 Colonoscopy 2003 FIT 2003 Sigmoidoscopy 2003 Virtual Colonography 2003 Pneumococcal Vaccine 50+ (1 of 1 - PCV) 02/15/2008 Zoster (1 of 2) 02/15/2008 Bone Density Screening 2023 COVID-19 Vaccine (2023-2 5 season) 2024 Influenza Vaccine (Season Ended) 2025 Hepatitis B Vaccine Aged Out No longe r eligible based on patient's age to complete this topic Meningococcal B Vaccine Aged Out No l onger eligible based on patient's age to complete this topic
--- OUTSIDE RECORDS SUMMARY | 2025-02-22 09:58 | XMS_ITS | Encounter Summary ---
Author Organization [facility] Address [facility] [place] [address] Care Team Providers Care Fine Craft Artist Name Role Phone Betty Antonio Primary Care Provider [phone] Source Comments This information has been disclosed [...] release of HIV test results or diagnoses. [id number] Health Encounter Details Date Type Department Care Team (Late st Contact Info) Description 02/26/2024 Ophth Exam [facility] Ophthalmology at [address] [place] [phone] Raul Raymond MD [address] [place] [address] Social History Tobacco Use Types Packs/Day Years Used Date Smoking Tobacco: Every Day Cigarettes 1 6.5 Started: 2019 Smokeless Tobacco: Never Alcohol Use Standard Drinks/Week Comments Not Currently 0 (1 standard drink = 0.6 oz pur e alcohol) Utilities Answer Date Recorded In the past 12 months has [employer] electric, gas, oil, or water company threatened to shut off services in your home? No 02/22/2024 AUDIT-C Answer Date Recorded Q1: How often do you have a drink containing alcohol? Never 02/22/2024 Q2: How many drinks containi ng alcohol do you have on a typical day when you are drinking? Patient does not drink Q3: How often do you have si x or more drinks on one occasion? Never 02/22/2024 PHQ-2 Answer Date Recorded PHQ-2 Total Score 0 01/09/2024 Hunger Vital Sign Answer Date Recorded Within the past 12 months, y ou worried that your food would run out before you got the money to buy more. Never true 02/22/20 24 Within the past 12 months, t he food you bought just didn't last and you didn't have money to get more. Never true 02/22/2024 PRAPARE - Transportation Answer Date Re corded In the past 12 months, has l ack of transportation kept you from medical appointments or from getting medications? No 02/01 In the past 12 months, has l ack of transportation kept you from meetings, work, or from getting things needed for daily living? No 02/22/2024 Housing Stability Vital Sign Answer Gabriel e Recorded In the last 12 months, was t here a time when you were not able to pay the mortgage or rent on time? No 02/22/2024 In the past 12 months, how m any times have you moved where you were living? 0 02/22/2024 At any time in the past 12 m [facility], were you homeless or living in a mcc (including now)? No 02/22/2024 Comments No Sex and Gender Information Value Date Recorded Sex Assigned at Female 01/01/2024 11:14 AM EDT Legal Sex Female 1:33 PM EDT Gender Identity Female 01/01/2024 11:14 AM EDT Sexual Orientation Not on file documented as of this encounter Plan of Treatment Not on file documented as of this encounter Visit Diagnoses Not on filedocumented in this encounter Care Teams Fine Craft Artist Relationship Specialty Start Date End Date Betty Antonio [address] [place] [address] [place] [address] PCP - General 12/14/23 documented as of this encounter
--- OUTSIDE RECORDS SUMMARY | 2025-02-22 09:58 | XMS_ITS | Encounter Summary ---
Author Organization [place] [address] Care Team Providers Care Hydraulic Rockbreaker Operator Name Role Phone Unavailable Primary Care Provider Unavailabl e Encounter Details Date Type Department Care Team (Late st Contact Info) Description 03/02/2024 Lab Requisition [facility]17 Madison Metcalf MD [address] [place] [address] [id number] Acute and subacute infective endocarditis Social History Tobacco Use Types Packs/Day Years Used Date Smoking Tobacco: Never Assessed Comments Unknown Sex and Gender Information Value Date Recorded Sex Assigned at Not on file Legal Sex Female 7:04 PM EDT Gender Identity Not on file Sexual Orientation Not on file documented as of this encounter Plan of Treatment Not on file documented as of this encounter Procedures Procedure Name Priority Date/Time Associated Diagnosis Comments EXTRA GOLD SST Routine 03/02/2024 10:30 AM EDT Acute and subacute infective endocarditis EXTRA LAVENDER Routine 03/02/2024 10:30 AM EDT Acute and subacute infective endocarditis SEDIMENTATION RATE AUTOMATED Routine 03/02/2024 10:30 AM EDT Acute and subacute infective endocarditis CBC WITH DIFF Routine 03/02/2024 10:30 AM EDT Acute and subacute infective endocarditis C-REACTIVE PROTEIN Routine 03/02/2024 10 :30 AM EDT Acute and subacute infective endocarditis COMPREHENSIVE METABOLIC PANEL Routine 03/02/2024 10:30 AM EDT Acute and subacute infective endocarditis documented in this encounter Results * EXTRA LAVENDER (03/02/2024 10:30 AM EDT) Blood VENOUS BLOOD / Unknown 03/02/2024 10:30 AM EDT 03/02/2024 7:12 PM EDT us Madison Metcalf MD HEMATOLOGY ORDERABLES Final Resu lt Performing Organization Address [facility] Co de Phone Number [facility] [address] [place] [address] * EXTRA GOLD SST (03/02/2024 10:30 AM EDT) Blood VENOUS BLOOD / Unknown 03/02/2024 10:30 AM EDT 03/02/2024 7:12 PM EDT us Madison Metcalf MD CHEMISTRY ORDERABLES Final Resul t Performing Organization Address [facility] de Phone Number [facility] [address] [place] [address] * (ABNORMAL) C-REACTIVE PROTEIN (03/02/2024 10:30 AM EDT) CRP 6.89(H) <=5.00 mg/L 03/02/2024 8:25 PM EDT [facility] Blood VENOUS BLOOD / Unknown 03/02/2024 10:30 AM EDT 03/02/2024 7:12 PM EDT Result Lashell Metcalf MD CHEMISTRY ORDERABLES Final Resul t Performing Organization Address [facility] de Phone Number [facility] [address], [place] [address] * (ABNORMAL) SEDIMENTATION RATE AUTOMATED (03/02/2024 10:30 AM EDT) Sed Rate 39(H) 0 - 30 mm/hr 03/02/2024 7:58 PM EDT [facility] Blood VENOUS BLOOD / Unknown 03/02/2024 10:30 AM EDT 03/02/2024 7:12 PM EDT us Madison Metcalf MD HEMATOLOGY ORDERABLES Final Resu lt [facility] [address] [facility] [facility] , [place] [address] * (ABNORMAL) COMPREHENSIVE METABOLIC PANEL (03/02/2024 10:30 AM EDT) Sodium 140 136 - 145 mmol/L 03/02/2024 8:25 PM EDT [facility] Potassium 4.8 3.5 - 5.0 mmol/L 03/02/2024 8:25 PM EDT [facility] Chloride 108(H) 98 - 107 mmol/L 03/02/2024 8:25 PM EDT [facility] Total CO2 22 22 - 29 mmol/L 03/02/2024 8:25 PM EDT [facility] Anion Gap 10 7 - 16 mmol/L 03/02/2024 8:25 PM EDT [facility] Calcium 9.3 8.8 - 10.4 mg/dL 03/02/2024 8:25 PM EDT [facility] Glucose Lvl 72 70 - 99 mg/dL 03/02/2024 8:25 PM EDT [facility] BUN 19 8 - 23 mg/dL 03/02/2024 8:25 PM EDT [facility] Creatinine 0.75 0.51 - 1.30 mg/dL 03/02/2024 8:25 PM EDT [facility] Albumin 3.8 3.2 - 4.6 gm/dL 03/02/2024 8:25 PM EDT [facility] Total Protein 6.7 6.4 - 8.3 gm/dL 03/02/2024 8:25 PM EDT [facility] Bili Total <0.2(L) 0.2 - 1.3 mg/dL 03/02/2024 8:25 PM EDT [facility] ALT 11 <=41 U/L 03/02/2024 8:25 PM EDT [facility] AST 24 <=40 U/L 03/02/2024 8:25 PM EDT [facility] Alk Phos 111 36 - 123 U/L 03/02/2024 8:25 PM EDT [facility] eGFR (CKD-EPIcr 2020) 87 >=60 mL/min/1.7 3 m2 03/02/2024 8:25 PM EDT [facility] Comment:Estimated GFR was ca lculated using the CKD-EPIcr (2020) equation refit without race. The equation is recommended by the National Kidney Foundation - [place] [employer] of Nephrology Task Force. Blood VENOUS BLOOD / Unknown 03/02/2024 10:30 AM EDT 03/02/2024 7:12 PM EDT us Madison Metcalf MD CHEMISTRY ORDERABLES Final Resul t [facility] [address] , [place] [address] [facility] [address] [place] [address] * (ABNORMAL) CBC WITH DIFF (03/02/2024 10:30 AM EDT) WBC 7.2 3.7 - 10.3 x10(3)/mcL 03/02/2024 7:58 PM EDT [facility] RBC 3.50(L) 3.90 - 5.20 x10(6)/mcL 03/02/2024 7:58 PM EDT [facility] Hgb 9.4(L) 11.2 - 15.7 g/dL 03/02/2024 7:58 PM EDT [facility] Hct 32.1(L) 34.0 - 45.0 % 03/02/2024 7:58 PM EDT [facility] MCV 91.7 80.0 - 100.0 fL 03/02/2024 7:58 PM EDT [facility] MCH 26.9 26.0 - 34.0 pg 03/02/2024 7:58 PM EDT [facility] MCHC 29.3(L) 30.7 - 35.5 g/dL 03/02/2024 7:58 PM EDT [facility] RDW 20.5(H) <=14.9 % 03/02/2024 7:58 PM EDT [facility] Platelet 299 155 - 369 x10(3)/mcL 03/02/2024 7:58 PM EDT [facility] MPV 10.8 8.8 - 12.5 fL 03/02/2024 7:58 PM EDT [facility] Neut Percent 52.7 % 03/02/2024 7:58 PM EDT [facility] Comment:Neutrophils equals s egs plus bands Imm Gran% 0.6 % 03/02/2024 7:58 PM EDT [facility] Comment:Automated count of m etamyelocytes, myelocytes and promyelocytes. Lymph Percent 30.8 % 03/02/2024 7:58 PM EDT [facility] Percent 5.8 % 03/02/2024 7:58 PM EDT [facility] Eos Percent 8.6 % 03/02/2024 7:58 PM EDT [facility] Baso Percent 1.5 % 03/02/2024 7:58 PM EDT [facility] Neut # 3.8 1.6 - 6.1 x10(3)/[facility] 03/02/2024 7:58 PM EDT [facility] Comment:Neutrophils equals s egs plus bands IMMGRAN# 0.0 0.0 - 0.1 x10(3)/[facility] 03/02/2024 7:58 PM EDT [facility] Comment:Automated count of m etamyelocytes, myelocytes and promyelocytes. An absolute IG <0.1 is reported as 0.0. Lymph # 2.2 1.2 - 3.9 x10(3)/[facility] 03/02/2024 7:58 PM EDT [facility] # 0.4 0.3 - 0.9 x10(3)/[facility] 03/02/2024 7:58 PM EDT [facility] Eos# 0.6(H) 0.0 - 0.5 x10(3)/[facility] 03/02/2024 7:58 PM EDT [facility] Baso # 0.1 0.0 - 0.1 x10(3)/[facility] 03/02/2024 7:58 PM EDT [facility] Blood VENOUS BLOOD / Unknown 03/02/2024 10:30 AM EDT 03/02/2024 7:12 PM EDT us Madison Metcalf MD HEMATOLOGY ORDERABLES Final Resu lt [facility] [address] , [address] [place] [id number] documented in this encounter Visit Diagnoses Diagnosis 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
--- OUTSIDE RECORDS SUMMARY | 2025-02-22 09:58 | XMS_ITS | Encounter Summary ---
Author Organization Healthcare Address [address] [place] [address] Care Team Providers Care Care Nurse Rn Name Role Phone AntonioBetty zamorano [place] FRANK Primary Care Provider [phone]- [phone] Encounter Details Date Type Department Care Team (Late st Contact Info) Description 04/04/2023 Billing Only Encounter [facility] Internal Medicine [address] [place] [address] Luz Jaime, CHEMISTRY TECHNICAL OFFICER [address] [place] [address] Social History Tobacco Use Types Packs/Day Years Used Date Smoking Tobacco: Every Day Cigarettes Smokeless Tobacco: Never Alcohol Use Standard Drinks/Week Comments No 0 (1 standard drink = 0.6 oz pure alcohol) Alcoholic Drinks/day: Never Drank Alcohol PHQ-2 Answer Date Recorded Patient Health Questionnaire-2 Score 2 04/18/2021 CAGE ASSESSMENT Answer Date Recorded Cage unable to access Not on file 04/02/2023 Cage max number of drinks Not on file 2022 Cage Beverages a week Not on file 04/02/2023 Have you ever felt you should CUT down on your d rinking? 0 04/02/2023 Have you been ANNOYED by people criticizing your drinking? 0 04/02/2023 Have you felt GUILTY about your drinking? 0 04/02/2023 Have you had a drink first t luzmaria in the morning (EYE-INVOICING MACHINE OPERATOR) to steady your nerves or to get rid of a hangover? 0 04/02/2023 CAGE Questionnaire Score 0 023 Comments No Sex and Gender Information Value Date Recorded Sex Assigned at Not on file Legal Sex Female 8:23 PM EDT Gender Identity Not on file Sexual Orientation Not on file documented as of this encounter Plan of Treatment Not on file documented as of this encounter Visit Diagnoses Not on filedocumented in this encounter Additional Health Concerns Infection Onset Date Last Indicated Resolved Time Gastrointestinal Rule-Out 09/07/2023 09/08/2023 10:15 PM EST C. difficile Rule-Out 09/07/2023 09/08/20232023 9:43 PM EST Assessment Noted Time A fall risk assessment has been complete d for the patient 01/15/2023 3:01 PM EDT documented as of this encounter Care Teams Care Nurse Rn Relationship Specialty Start Date End Date Betty Antonio APRN [address] [place] [address] PCP - General 05/31/21 documented as of this encounter
--- OUTSIDE RECORDS SUMMARY | 2025-02-22 09:58 | XMS_ITS | Clinical Summary ---
Author Organization [facility] Address [address] [place] [address] Care Team Providers Care Shoe Cobbler Name Role Phone AntonioBetty zamorano [place] FRANK Primary Care Provider [phone]- [phone] Allergies Active Allergy Reactions Criticality Noted Date Comments Levofloxacin Anaphylaxis,Angioede ma,A nxiety,Diarrhea,Dizzines s,Hallucinations,Headach e,Other - please document in the comment field,Palpitations,Short ness of breath,Unknown - Patient states they do not know rxn details,Wheezing,Swellin g High 08/30/2011 Rashes and seizures as well Medications pregabalin (Lyrica) 150 MG capsule Take 1 capsule (150 mg) by mouth 3 (three) times a day. Active pantoprazole (ProtoNix) 40 MG EC tablet Take 1 tablet (40 mg) by mouth 2 (two) times a day. 04/28/2020 Active temazepam (Restoril) 15 MG capsule Take 1 capsule (15 mg) by mouth every night. Active PARoxetine (Paxil) 20 MG tablet Take 2 tablets (40 mg) by mouth 1 (one) time each day. Active Fluticasone-Ume clidin-Vilant (Trelegy Ellipta) 100-62.5-25 MCG/ACT aerosol powder Inhale 1 puff 1 (one) time each day. Active polyethylene glycol (Miralax) 17 g packet Take 17 g by mouth 1 (one) time each day. 30 each 09/15/2023 Active senna (Senokot) 8.6 MG tablet Take 2 tablets (17.2 mg) by mouth every night. 30 tablet 09/14/2023 Active docusate sodium (Colace) 100 MG capsule Take 2 capsules (200 mg) by mouth 1 (one) time each day in the morning. Active Calcium Citrate (CITRACAL PO) Take 2 tablets by mouth 1 (one) time each day. Active cholecalciferol 250 MCG (66633 UT) capsule Take 5,000 Units by mouth 1 (one) time each day. Active alpha tocopherol (Vitamin E) 100 units capsule Take 1 capsule (100 Units) by mouth 1 (one) time each day. Active Active Problems Problem Noted Date Diagnosed Date Chronic pancreatitis, unspecified pancreatitis t ype 09/27/2023 Acute pancreatitis, unspecif ied complication status, unspecified pancreatitis type 09/06/2023 Generalized abdominal pain 04/01/2023 Closed fracture of left hip 04/11/202204/02 Marijuana use 04/11/2022 04/11/2023 RLS (restless legs syndrome) 04/11/202206/2023 Bipolar disorder 04/11/2022 04/11/2023 Mood disorder 04/11/2022 04/11/2023 GERD (gastroesophageal reflux disease) 04/11/2023 Affective bipolar disorder 04/18/2021 HZV (herpes zoster virus) post herpetic neuralgi a 04/18/2021 Kidney stone 04/18/2021 Abdominal pain 04/30/2020 Overview (04/18/2021): Unspecified abdominal pain Bile duct stone 04/20/2020 Chronic pancreatitis 12/01/2015 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 Abnormal findings on diagnos tic imaging of other parts of digestive tract 07/09/2013 Vitamin D deficiency 03/07/2013 Pancreatic duct calculus 01/22/2013 Protein-calorie malnutrition 01/15/2013 Other chronic pain 01/13/2013 Gastroparesis 01/05/2013 Hypercalcemia 01/05/2013 Malnutrition of moderate degree 01/05/2013 Acute pancreatitis 12/08/2012 Esophagitis 12/08/2012 Peptic ulcer without hemorrhage or perforation 0 12/08/2012 Low back pain 11/11/2012 Depression 09/16/2012 Anxiety disorder 09/16/2012 Postherpetic neuralgia 09/16/2012 Manic episode without psychotic symptoms 013 Neuralgia 09/16/2012 Resolved Problems Problem Noted Date Diagnosed Date Resolved Date Abnormal weight loss 12/08/2012 023 Immunizations Immunization Administration Dates Next Due Influenza, injectable, quadrivalent 09/05/2021 Influenza, injectable, quadr ivalent, preservative free 09/05/2021,06/06/2020,09/12/2015 Prema COVID-19 Vaccine (Blue Cap) 18+ 01/11/20 21 Moderna COVID-19 Vaccine (Re d Cap) 12+ years 09/05/2021 TD (adult), 2 Lf tetanus tox oid, preservative free, adsorbed 11/07/1996 Family History Medical History Relation Name Comments Hypertension Brother Depression Father Lh Diabetes Father Lh Heart disease Father Lh Hypertension Father Lh Menorrhagia Other 1 Emphysema Other 2 Menorrhagia Sister 1 FH: bladder can cer Cancer Sister 2 Vijaya Relation Name Status Comments Brother Father Lh Alive Mother Other 1 Other 2 Sister 1 Sister 2 Vijaya Social History Tobacco Use Types Packs/Day Years Used Date Smoking Tobacco: Every Day Cigarettes 2 40 Passive Smoke Exposure: Current Smokeless Tobacco: Never Alcohol Use Standard Drinks/Week Comments No 0 (1 standard drink = 0.6 oz pure alcohol) Alcoholic Drinks/day: Never Drank Alcohol Humiliation, Afraid, Rape, and Kick questionnair e Answer Date Recorded Within the last year, have y ou been afraid of your partner or ex-partner? No 09/27/2023 Within the last year, have y ou been humiliated or emotionally abused in other ways by your partner or ex-partner? No Within the last year, have y ou been kicked, hit, slapped, or otherwise physically hurt by your partner or ex-partner? No 09/27/2023 Within the last year, have y ou been raped or forced to have any kind of sexual activity by your partner or ex-partner? No 09/27/2023 PHQ-2 Answer Date Recorded Patient Health Questionnaire-2 Score 2 11/28/2023 Hunger Vital Sign Answer Date Recorded Within the past 12 months, y ou worried that your food would run out before you got the money to buy more. Never true 09/27/19 24 Within the past 12 months, t he food you bought just didn't last and you didn't have money to get more. Never true 09/27/2023 PRAPARE - Transportation Answer Date Re corded In the past 12 months, has l ack of transportation kept you from medical appointments or from getting medications? No 09/03 In the past 12 months, has l ack of transportation kept you from meetings, work, or from getting things needed for daily living? No 09/27/2023 Housing Stability Vital Sign Answer Gabriel e Recorded In the last 12 months, was t here a time when you were not able to pay the mortgage or rent on time? No 09/27/2023 Number of Places Lived in the Last Year Not on f ile 09/27/2023 In the last 12 months, was t here a time when you did not have a steady place to sleep or slept in a nursing home (including now)? No 09/27/2023 CAGE ASSESSMENT Answer Date Recorded Cage unable to access Not on file 09/27/2023 Cage max number of drinks Not on file 2023 Cage Beverages a week Not on file 09/27/2023 Have you ever felt you should CUT down on your d rinking? 0 09/27/2023 Have you been ANNOYED by people criticizing your drinking? 0 09/27/2023 Have you felt GUILTY about your drinking? 0 09/27/2023 Have you had a drink first t luzmaria in the morning (EYE-CARBURETOR EXPERT) to steady your nerves or to get rid of a hangover? 0 09/27/2023 CAGE Questionnaire Score 0 024 Utilities Answer Date Recorded In the past 12 months has th e [employer], gas, oil, or water company threatened to shut off services in your home? No 09/27/2023 PHQ-2A Answer Date Recorded Patient Health Questionnaire-2 Score 0 04/11/2023 Comments No Sex and Gender Information Value Date Recorded Sex Assigned at Not on file Legal Sex Female 8:23 PM EDT Gender Identity Not on file Sexual Orientation Not on file Last Filed Vital Signs Vital Sign Reading Time Taken Comments Blood Pressure 94/56 12/10/2023 1:10 PM EDT Pulse 74 12/10/2023 1:10 PM EDT Temperature 36.2 C (97.2 F) 12/10/2023 12:41 PM EDT Respiratory Rate 12 12/10/2023 1:10 PM EDT Oxygen Saturation 99% 12/10/2023 1:10 PM EDT Inhaled Oxygen Concentration - - Weight 42.6 kg (93 lb 14.7 oz) 12/10/2023 10:26 AM EDT Height 157.5 cm (5' 2 ) 12/10/2023 10:26 AM EDT Body Mass Index 17.18 12/10/2023 10:26 AM EDT Plan of Treatment Health Maintenance Due Date Last Done Comments [facility]-Bone Density Scan 1960 [facility]-Medicare Annual Wellness (AWV) 1960 [facility]-/Child/Adol SDOH Screenings 1960 [facility]- SDOH Screenings 02/15/1976 [facility]-Adult SDOH Screenings 02/15/1976 [facility]-DTaP,Tdap,and Td Vaccines (1 - Tdap) 11/08/1996 11/07/1996 CT Colonography 2003 FIT-DNA 2003 FIT 2003 FOBT 2003 Sigmoidoscopy 2003 [facility]-Breast Cancer Screening 02/15/2008 [facility]-Pneumococcal Vaccine: 50+ Years (1 of 1 - PCV) 02/15/2008 [facility]-Zoster Vaccines (1 of 2) 02/15/2008 [id number] Vaccine (3 - season) 2024 09/05/2021, 01/10/2021 [facility]-Depression Screening 11/27/2024 11/28/2023 [facility]-Influenza Vaccine (Season Ended) 2025 09/05/2021, 09/05/2021, 06/06/2020, Additional history exists [facility]-RSV Vaccine: 60+ Years or (1 - 1-dose 75+ series) 2033 Colonoscopy 05/06/2033 05/09/2023 [facility]-Colorectal Cancer Screening 05/06/2033 [facility]-Diabetes: Hemoglobin A1C Discontinued 01/15/2023 [facility]-Hepatitis C Screening Completed 04/01/2023, HPV Vaccines Aged Out No longer eligi ble based on patient's age to complete this topic [facility]-HIB Vaccines Aged Out No longer e ligible based on patient's age to complete this topic [facility]-Hepatitis A Vaccines Aged Out No longer eligible based on patient's age to complete this topic [facility]-IPV Vaccines Aged Out No longer e ligible based on patient's age to complete this topic [facility]-Rotavirus Vaccines Aged Out No lo nger eligible based on patient's age to complete this topic Medical Devices Implanted Type Area Window Glass Cutter Off Device Identifier Shelf Expiration Date Model / Serial / Lot Stent Biliary 2.3 X 50mm - [id number] Implanted:Qty: 1 on 02/25/2023 by Flavio Noble MD at [facility]-[id number] 10/04/2025 [id number] / / [id number] Stent Biliary 2.3 X 50mm - [id number] Implanted:Qty: 1 on 02/25/2023 by Flavio Noble MD at [facility]-[id number] 11/12/2025 [id number] / / [id number] Procedures Procedure Name Priority Date/Time Associated Diagnosis Comments COLONOSCOPY Routine 05/09/2023 2:19 PM EDT Lower abdominal pain HEPATITIS C ANTIBODY - ED W/REFLEX TO HCV QUANT PCR STAT 04/01/2023 3:49 PM EDT HEMOGLOBIN A1C Routine 01/15/2023 5:04 PM EDT Hyperglycemia from Last 3 Months or Most Recently Relevant to Health Maintenance Results * Colonoscopy (05/09/2023 2:19 PM EDT) Anatomical Region Laterality Modality Endoscopy Narrative 05/09/2023 2:22 PM EDT Table formatting from the original result was not included. Impression: The terminal ileum appeared normal. Hemorrhoids The entire colon appeared normal. Recommendation Repeat screening colonoscopy in 10 years Follow up with referring provider Discussed with Reed Indication Abdominal pain Medications See anesthesia record for anesthesia administered medications. Staff Staff Role Fani Sommer MD Proceduralist Helio Nelson CRNA CRNA Hardin, Bryan D MD Anesthesiologist Stephanie, Noa Duke RN Endo Nurse Lolly Johnson MD Proceduralist Celso Zimmerman Endo Financial Aid Manager Preprocedure A history and physical has been performed, and patient medication allergies have been reviewed. The patient's tolerance of previous anesthesia has been reviewed. The risks and benefits of the procedure and the sedation options and risks were discussed with the patient. All questions were answered and informed consent obtained. Details of the Procedure The patient underwent monitored anesthesia care, which was administered by an anesthesia professional. The patient's blood pressure, heart rate, level of consciousness, respirations and oxygen were monitored throughout the procedure. A digital rectal exam was performed. A perianal exam was performed. The scope was introduced through the anus and advanced to the terminal ileum. Retroflexion was performed in the rectum. The quality of bowel preparation was evaluated using the Isabela Bowel Preparation Scale with scores of: right colon = 2, transverse colon = 2, left colon = 2. The total BBPS score was 6. Bowel prep was adequate. The patient experienced no blood loss. The procedure was not difficult. The patient tolerated the procedure well. There were no apparent adverse events. Attestation I was present for the entire procedure Events Procedure Events Event Event Time ENDO SCOPE IN TIME 05/09/2023 1:48 PM ENDO CECUM REACHED 05/09/2023 2:09 PM ENDO SCOPE OUT TIME 05/09/2023 2:18 PM Specimens No specimens were documented in this log. Findings The terminal ileum appeared normal. Internal hemorrhoids The entire colon appeared normal. Flavio Noble MD GI PROCEDURE ORDERABLES Rachael l Result * Hepatitis C Antibody - ED (04/01/2023 3:49 PM EDT) Hepatitis C Antibody Negative Negative 04/01/2023 4:45 PM EDT [facility] Blood Venous blood specimen / Unknown Venipuncture / Unknown 04/01/2023 3:49 PM EDT 04/01/2023 4:03 PM EDT Juan Jose Novak MD LAB BLOOD ORDERABLES Final Resul t [facility] [address] [place] [address] * Hemoglobin A1c (01/15/2023 5:04 PM EDT) Hemoglobin A1c 5.1 <5.7 % 01/15/2023 6:16 PM EDT [facility] Blood Venous blood specimen / Unknown Venipuncture / Unknown 01/15/2023 5:04 PM EDT 01/15/2023 5:05 PM EDT Narrative [facility] - 01/15/2023 6:16 PM EDT HA1C Interpretive Data: Diagnosis of Diabetes: Diabetic > or = 6.5% Pre-diabetic 5.7 to 6.4% Non-diabetic < or = 5.6% Glycemic Targets for Type I and Type II Diabetics: Non- Adults <7.0% Adults <6.0% Children and Adolescents <7.5% Source: [place] [employer] Association. Standards of medical care in diabetes,2017. Diabetes Care.2017:40 (suppl 1):S1-S135. HbA1c assay performed by an ion-exchange chromatography method that is certified traceable to the DCCT. us Albert SANCHEZ LAB BLOOD ORDERABLES Final Re sult [facility] [address] [place] [address] from Last 3 Months or Most Recently Relevant to Health Maintenance Insurance [facility] MEDICARE Advance Directives * Full Code (Latest Code Status on File) Date Activated Date Inactivated Comments 09/27/2023 3:03 AM 09/30/2023 4:17 PM Question Answer Comments Patient has decision-making capacity? Yes * Full Code Date Activated Date Inactivated Comments 09/06/2023 11:13 PM 09/14/2023 4:09 PM Question Answer Comments Patient has decision-making capacity? Yes * Full Code Date Activated Date Inactivated Comments 04/01/2023 10:28 PM 04/02/2023 2:12 PM Question Answer Comments Patient has decision-making capacity? Yes Care Teams Shoe Cobbler Relationship Specialty Start Date End Date Betty Antonio APRN [address] [place] [address] PCP - General 05/31/21
--- OUTSIDE RECORDS SUMMARY | 2025-02-22 09:58 | XMS_ITS | Clinical Summary ---
Author Organization [facility] Address [address] [place] [address] Care Team Providers Care Navy Senior Officer Name Role Phone Paco Betty FRANK Primary Care Provider Allergies Active Allergy Reactions Criticality Noted Date Comments Levofloxacin 10/19/2023 Medications Trelegy Ellipta 100-62.5-25 mcg DsDv Take 1 puff by mouth daily. Active HYDROcodone-gucci taminophen (NORCO 7.5-325) 7.5-325 mg per tablet Take 1 tablet by mouth every 6 (six) hours as needed for Pain. Active Creon 24,000-76,000 -120,000 unit CpDR capsule Take 1 capsule (24,000 units of lipase total) by mouth 3 (three) times daily. Active pantoprazole (PROTONIX) 40 MG tablet Take 1 tablet (40 mg total) by mouth 2 (two) times daily. Active PARoxetine (PAXIL) 20 MG tablet Take 2 tablets (40 mg total) by mouth daily. Active pregabalin (LYRICA) 150 MG capsule Take 1 capsule (150 mg total) by mouth 3 (three) times daily. Active sucralfate (CARAFATE) 1 gram tablet Take 1 tablet (1 g total) by mouth 4 (four) times daily. Active temazepam (RESTORIL) 15 mg capsule Take 1 capsule (15 mg total) by mouth every night as needed for Sleep. Active Active Problems Problem Noted Date Diagnosed Date Altered mental status 10/19/2023 Colitis due to Clostridium difficile 10/19/2023 Hypertension 10/19/2023 GERD (gastroesophageal reflux disease) COPD (chronic obstructive pulmonary disease) Frailty syndrome in geriatric patient 10/19/2023 Severe sepsis with acute organ dysfunction 10/19 GEORGE (acute kidney injury) 10/19/2023 Social History Tobacco Use Types Packs/Day Years Used Date Smoking Tobacco: Every Day Cigarettes Smokeless Tobacco: Never Tobacco Cessation:Ready to Q uit: Not Asked; Counseling Given: Not Answered Alcohol Use Standard Drinks/Week Comments Never 0 (1 standard drink = 0.6 oz pur e alcohol) Interpersonal Safety Answer Date Record ed Family or friends hurt you Not on file 10/19 Family or friends insult you Not on file Family or friends threaten you Not on file 0 10/19/2023 Family or friends scream or curse at you Not on file 10/19/2023 Housing Stability Answer Date Recorded Living situation today Not on file Living situation problems Not on file 2023 Food Insecurity Answer Date Recorded Food run out past 12 months Not on file 10/03 Food did not last past 12 months Not on file 10/19/2023 Employment Answer Date Recorded Help finding and keeping a job Not on file 0 10/19/2023 Family and Community Support Answer Gabriel e Recorded Help with Day to Day Activities Not on file 10/19/2023 Feeling Lonely or Isolated Not on file 10/19 Educational Attainment Answer Date Gordo rded Speak language other than Luxembourger at home Not on file 10/19/2023 Want help with school or training Not on file 10/19/2023 Depression Answer Date Recorded PHQ-2 Risk Not on file 10/19/2023 Disabilities Answer Date Recorded Difficulty concentrating Not on file 024 Difficulty doing errands alone Not on file 0 10/19/2023 Substance Use Answer Date Recorded Used prescription meds for non-medical reasons N ot on file 10/19/2023 Used illegal drugs past 12 months Not on file 10/19/2023 Comments No Sex and Gender Information Value Date Recorded Sex Assigned at Not on file Legal Sex Female 4:36 PM CDT Gender Identity Not on file Sexual Orientation Not on file Last Filed Vital Signs Vital Sign Reading Time Taken Comments Blood Pressure 139/69 10/26/2023 5:40 AM EST Pulse 78 10/26/2023 5:40 AM EST Temperature 36.7 C (98.1 F) 10/26/2023 5:40 AM EST Respiratory Rate 17 10/25/2023 9:31 PM EST Oxygen Saturation 95% 10/26/2023 8:17 AM EST Inhaled Oxygen Concentration - - Weight 42.1 kg (92 lb 13 oz) 10/22/2023 9:55 AM EST Height 157.5 cm (5' 2 ) 10/22/2023 8:04 AM EST Body Mass Index 16.98 10/22/2023 8:04 AM EST Plan of Treatment Health Maintenance Due Date Last Done Comments CT Colonography 1958 Colonoscopy 1958 Colorectal Cancer Screening 1958 DXA SCAN 1958 FOBT/FIT 1958 Fit-DNA (Cologuard) 1958 Sigmoidoscopy 1958 Depression Screening (12+) 1970 Hepatitis C Screening 02/15/1976 Pneumococcal 50+ years (1 of 2 - PCV) 1977 Breast Cancer Screening 1998 DTAP/TDAP/TD VACCINES (2 - Td or Tdap) 11/07/2006 Shingles Vaccine (Zoster) (1 of 2) 02/15/2008 Respiratory Syncytial Virus (RSV) Adult or (1 - Risk 60-74 years 1-dose series) 2018 Medicare Initial AWV [id number] 04/03/2024 COVID-19 VACCINE ( season) 05/03/202412/2021, 01/10/2021 Falls Risk Screening 09/02/2024 Tobacco Cessation Counseling and Screening (12+) 10/19/2024 10/19/2023 Influenza Vaccine (Season Ended) 2025 09/05/19, 09/12/2015 Additional Health Concerns Infection Onset Date Last Indicated C. difficile 10/19/2023 10/19/[address] [facility] MEDICARE PPO Advance Directives For more information, please contact: [phone] * Full Code (Latest Code Status on File) Date Activated Date Inactivated Comments 10/19/2023 6:17 PM 10/26/2023 4:31 PM Care Teams [employer] Senior Officer Relationship Specialty Start Date End Date Betty Antonio APRN [address] [address] PCP - General Nurse Practitioner 10/19/23
--- OUTSIDE RECORDS SUMMARY | 2025-02-22 09:58 | XMS_ITS | Encounter Summary ---
Author Organization [facility] Address [address] [place] [address] Care Team Providers Care Fitness Sales Associate Name Role Phone Betty Antonio Primary Care Provider [phone] Source Comments This information has been disclosed [...] release of HIV test results or diagnoses. [id number] Health Encounter Details Date Type Department Care Team (Late st Contact Info) Description 02/08/2025 Telephone [facility] Cardiology at [place] [facility] [address] [facility] [address] [place] [phone] Radha Alvarez MD [address] [facility] Cardiology [address] [place] [address] Social History Tobacco Use Types Packs/Day Years Used Date Smoking Tobacco: Every Day Cigarettes 1 6.5 Started: 2019 Smokeless Tobacco: Never Alcohol Use Standard Drinks/Week Comments Not Currently 0 (1 standard drink = 0.6 oz pur e alcohol) Utilities Answer Date Recorded In the past 12 months has e electric, gas, oil, or water company threatened [...] were you homeless or living in a correction (including now)? No 07/11/2024 Yearly Questionnaire Answer [...] encounter Miscellaneous Notes * Telephone Encounter - Stormy Hutchison RN - 02/08/2025 12:17 PM EDT Called patient and relayed message to patient. Scheduled patient for follow up appointment. * Telephone Encounter - Angelic Molina - 02/08/2025 11:29 AM EDT Pt calling to schedule procedure that Antonio ordered Please call Caitlyn @ [phone] documented in this encounter Plan of Treatment Not on file documented as of this encounter Visit Diagnoses Not on filedocumented in this encounter Care Teams Fitness Sales Associate Relationship Specialty Start Date End Date Betty Antonio [address] [place] [address] PCP - General 12/14/23 documented as of this encounter
--- OUTSIDE RECORDS SUMMARY | 2025-02-22 09:58 | XMS_ITS | Encounter Summary ---
Author Organization Healthcare Address [address] [place] [address] Care Team Providers Care Back Order Clerk Name Role Phone AntonioVickishanna Coleman APRN Primary Care Provider [phone] Reason for Visit * Reason Comments Med Refill Encounter Details Date Type Department Care Team (Late st Contact Info) Description 08/07/2023 [facility] [address] [place] [address] Albert Fierro PA [address] [place] [address] Social History Tobacco Use Types Packs/Day Years Used Date Smoking Tobacco: Every Day Cigarettes 1 40 Passive Smoke Exposure: Current Smokeless Tobacco: Never Alcohol Use Standard Drinks/Week Comments No 0 (1 standard drink = 0.6 oz pure alcohol) Alcoholic Drinks/day: Never Drank Alcohol PHQ-2 Answer Date Recorded Patient Health Questionnaire-2 Score 0 04/11/2023 CAGE ASSESSMENT Answer Date Recorded Cage unable [...] drink first t luzmaria in the morning (EYE-PLANNING AND ANALYSIS MANAGER) to steady your nerves or to get rid of a hangover? 0 04/02/2023 CAGE Questionnaire Score 0 023 PHQ-2A Answer Date Recorded Patient Health Questionnaire-2 Score 0 04/11/2023 Comments No Sex and Gender Information Value Date Recorded Sex Assigned at Not on file Legal Sex Female 8:23 PM EDT Gender Identity Not on file Sexual Orientation Not on file documented as of this encounter Miscellaneous Notes * Telephone Encounter - Elan Cristina, PharmD - 08/07/2023 11:58 AM EST Per protocol, 1 medication(s), creon, has been approved for 30 day supply with 2 refill(s) to [facility]. documented in this encounter Plan of Treatment Not on file documented as of this encounter Visit Diagnoses Not on filedocumented in this encounter Additional Health Concerns Infection Onset Date Last Indicated Resolved Time Gastrointestinal Rule-Out 09/07/2023 09/08/2023 10:15 PM EST C. difficile Rule-Out 09/07/2023 09/08/20232023 9:43 PM EST Assessment Noted Time A fall risk assessment has been complete d for the patient 04/11/2023 1:43 PM EDT documented as of this encounter Care Teams Back Order Clerk Relationship Specialty Start Date End Date Betty Antonio APRN [address] [place] [address] PCP - General 05/31/21 documented as of this encounter
--- OUTSIDE RECORDS SUMMARY | 2025-02-22 09:58 | XMS_ITS | Referral Summary ---
Author Organization [facility] [employer] [facility] Address [address] [place] [address] Care Team Providers Care Finance Director Name Role Phone Paco Betty FRANK Primary [...] Date Gordo rded Speak language other than Cook Islander at home Not on file 10/19/2023 Want [...] 10/22/2023 8:04 AM EST Plan of Treatment Not on file Additional Health Concerns Infection Onset Date Last Indicated C. difficile 10/19/2023 10/19/2023 Insurance [employer] MEDICARE PPO Advance Directives For more information, please contact: [phone] * Full Code (Latest Code Status on File) Date Activated Date Inactivated Comments 10/19/2023 6:17 PM 10/26/2023 4:31 PM Care Teams Finance Director Relationship Specialty Start Date End Date Betty Antonio, AUTOMOTIVE FINANCE MANAGER [address] [address] PCP - General Nurse Practitioner 10/19/23
--- OUTSIDE RECORDS SUMMARY | 2025-02-22 09:58 | XMS_ITS | Encounter Summary ---
Author Organization [facility] Address [facility] [place] [address] Care Team Providers Care Computer Compositor Name Role Phone Betty Antonio Primary Care Provider [phone] Source Comments This information has been disclosed [...] release of HIV test results or diagnoses. [id number] Health Encounter Details Date Type Department Care Team (Late st Contact Info) Description 04/10/2024 Ophth Exam [facility] Ophthalmology at [address] [place] [phone] Elan Cates MD [address] [place] [address] Social History Tobacco Use Types Packs/Day Years Used Date Smoking Tobacco: Every Day Cigarettes 1 6.5 Started: 2019 Smokeless Tobacco: Never Alcohol Use Standard Drinks/Week Comments Not Currently 0 (1 standard drink = 0.6 oz pur e alcohol) Utilities Answer Date Recorded In the past 12 months has [employer] electric, gas, oil, or water company threatened to shut off services in your home? No 04/04/2024 AUDIT-C Answer Date Recorded Q1: How often do you have a drink containing alcohol? Never 04/05/2024 Q2: How many drinks containi ng alcohol do you have on a typical day when you are drinking? Patient does not drink Q3: How often do you have si x or more drinks on one occasion? Never 04/05/2024 PHQ-2 Answer Date Recorded PHQ-2 Total Score 0 03/12/2024 Hunger Vital Sign Answer Date Recorded Within the past 12 months, y ou worried that your food would run out before you got the money to buy more. Never true 04/04/20 24 Within the past 12 months, t he food you bought just didn't last and you didn't have money to get more. Never true 04/04/2024 PRAPARE - Transportation Answer Date Re corded In the past 12 months, has l ack of transportation kept you from medical appointments or from getting medications? No 11/2023 In the past 12 months, has l ack of transportation kept you from meetings, work, or from getting things needed for daily living? No 04/04/2024 Housing Stability Vital Sign Answer Gabriel e Recorded In the last 12 months, was t here a time when you were not able to pay the mortgage or rent on time? No 04/04/2024 In the past 12 months, how m any times have you moved where you were living? 0 04/04/2024 At any time in the past 12 m [facility], were you homeless or living in a long term (including now)? No 04/04/2024 Yearly Questionnaire Answer Date Record ed Do you need any assistance w ith obtaining housing, meals, medication, transportation or medical equipment? No 03/12 Assistance needed for: Not on file 4 Yearly Questionnaire Answer Date Record ed Do you need any assistance w ith obtaining housing, meals, medication, transportation or medical equipment? No 03/12 Assistance needed for: Not on file Yearly Questionnaire Answer Date Record ed Do you need any assistance w ith obtaining housing, meals, medication, transportation or medical equipment? No 03/12 Assistance needed for: Not on file 4 Comments No Sex and Gender Information Value Date Recorded Sex Assigned at Female 01/01/2024 11:14 AM EDT Legal Sex Female 1:33 PM EDT Gender Identity Female 01/01/2024 11:14 AM EDT Sexual Orientation Not on file documented as of this encounter Plan of Treatment Not on file documented as of this encounter Visit Diagnoses Not on filedocumented in this encounter Care Teams Computer Compositor Relationship Specialty Start Date End Date Betty Antonio [address] [place] [address] PCP - General 12/14/23 documented as of this encounter
[2025-02-22 18:10] LABS: Fats, Neutral Normal (.); Fats, Total Normal (.)
[2025-02-23 10:34] LABS: Pancreatic Elastase, Fecal 21 (>200)
== END 2025-02-19 23:59 | disposition home or self-care (01) ==
LOC: LAB.DROPOF 02-22 09:42
PROVIDERS: PCP Nurse Practitioner Family; Visit Provider Nurse Practitioner Family
DX: R19.5 Other fecal abnormalities (principal)
CPT/HCPCS: 82656; 82705; 87045

== ENCOUNTER 2025-02-25 10:33 | Emergency (ER) | payer MEDICARE, SELFPAY ==
--- OUTSIDE RECORDS SUMMARY | 2025-02-02 10:00 | XMS_ITS | Encounter Summary ---
Author Organization [facility] Address [address] [place] [address] Care Team Providers Care Stock Sorter Name Role Phone Betty Antonio Primary Care Provider [phone] Source Comments This information has been disclosed [...] release of HIV test results or diagnoses. [id number] Health Reason for Referral * Therapy (Routine) - New Request Specialty Diagnoses / Procedures Referred By Contac t Referred To Contact Diagnoses Postural imbalance Ana Lopez PA [address] [place] [address] Phone: tel: fax: Referral ID Status Reason Start Date Expiration Date V isits Requested Visits Authorized [id number] New Request 02/02/2025 08/01/2025 1 1 Reason for Visit * Reason Comments Dizziness Follow-up * Auth/Cert (Routine) Specialty Diagnoses / Procedures Referred By Contac t Referred To Contact Otolaryngology [facility] at [facility] [address] [facility] [address] [place] [address] Phone: tel: fax: Referral ID Status Reason Start Date Expiration Date Visits Re quested Visits Authorized [id number] 1 1 Encounter Details Date Type Department Care Team (Late st Contact Info) Description 02/02/2025 10:00 AM EDT Office Visit [facility] ENT at [facility] [address] [place] [address] Ana Lopez PA [address] [place] [address] Postural imbalance (Primary Dx); Tinnitus of both ears Social History Tobacco Use Types Packs/Day Years Used Date Smoking Tobacco: Every Day Cigarettes 1 6.5 Started: 2018 Smokeless Tobacco: Never Alcohol Use Standard Drinks/Week Comments Not Currently 0 (1 standard drink = 0.6 oz pur e alcohol) Utilities Answer Date Recorded In the past 12 months has [employer], gas, oil, or water [employer] threatened to shut off services in your [...] any time in the past [address] [facility], were you homeless or living in a fdc (including now)? No 07/11/2024 Yearly Questionnaire Answer [...] - Refer to vestibular-certified physical therapy at [facility]. - Obtain records from [facility] to review Dizziness Handicap Index and Souza [...] 64 y.o. female History of Present Illness Caitlyn Mcbride is a 64 year old female [...] has visited multiple physical therapy locations including [facility], [place], and [place], but has not continued therapy since her last visit to [facility], where she felt the treatment was inadequate. 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 Past Surgical History: She has a past surgical history that includes upper eus (N/A, 01/07/2024); Tonsillectomy; Appendectomy; Cholecystectomy; Hysterectomy; Adenoidectomy; Breast biopsy; Cardiac valuve replacement; section; Bile duct stent placement (02/25/2023); ERCP (12/10/2023); Left Heart Cath (N/A, 04/13/2024); and qjaw-hyhxq-slzecu procedure (N/A, 07/08/2024). Social History: She reports [...] normal (03/2024) Lab Results Component Value Date [id number] 57.1 04/09/2024 Assessment and Plan: Assessment & Plan Vestibular dysfunction Improvement in vertigo, persistent balance issues. Prior PT partially effective, specialized therapy needed. - Refer to vestibular-certified physical therapy at [facility]. - Obtain records from [facility] to review Dizziness Handicap Index and Souza [...] tinnitus documented in this encounter Care Teams Stock Sorter Relationship Specialty Start Date End Date Betty Antonio On license of [facility] [place] [address] [place] [id number] PCP - General 12/14/23 documented as of this encounter
[2025-02-25] VITALS (11 sets, daily range): BP systolic 133–167; BP diastolic 53–92; PULSE 53–74; RESP 18–20; TEMP 36.4–36.6; O2SAT 96–100; BMI 29.2
--- OUTSIDE RECORDS SUMMARY | 2025-02-25 10:56 | XMS_ITS | Continuity of Care Document ---
Author Organization [facility]. If a dditional information is needed, contact Health Information Management at [phone] Address [address] [place] [address] Phone Care Team Providers Care Health Club Manager Name Role Phone Unavailable Unavailable Unavailable Unavailable Unavailable Unavailable Unavailable Unavailable Unavailable Problems Tobacco user Onset:13-Feb-2022 [place] Dow MD Restless legs Onset:13-Feb-2022 [place] Dow MD Gastroesophageal reflux dise ase Onset:13-Feb-2022 [place] Dow MD Metabolic encephalopathy Onset:13-Feb-2022 [place] Dow MD Status:Acute Bipolar disorder Onset:13-Feb-2022 [place] Dow MD Patient encounter status Onset:13-Feb-2022 [place] Dow MD Status:Acute History of repair of hip alayna nt Onset:13-Feb-2022 [place] Dow MD Status:Acute History of surgery Onset:13-Feb-2022 [place] Dow MD Status:Acute Past history of ce sarean section Onset:13-Feb-2022 [place] Dow MD Status:Acute History of aortic valve repl acement Onset:13-Feb-2022 [place] Dow MD Status:Acute History of total hysterectom y Onset:13-Feb-2022 [place] Dow MD Status:Acute Bipolar disorder [...] ORAL Daily Start:12-Feb-2022 Comments:0.5 mg PO DAILY Paroxetine HCl;20 MG ORAL Da rashid Start:12-Feb-2022 Comments:20 mg PO DAILY pregabalin 150 mg capsule;15 0 MG ORAL Three Times a Day Start:12-Feb-2022 Comments:150 mg PO TID Restoril;15 MG ORAL As Neede d Start:12-Feb-2022 Comments:15 mg PO PRN As Needed for PAIN
--- OUTSIDE RECORDS SUMMARY | 2025-02-25 11:07 | XMS_ITS | Clinical Summary ---
Author Organization [facility] Address [address] [place] [address] Phone Care Team Providers Care Security System Technician Name Role Phone Unavailable Unavailable Conditions or Problems No information available. Medications No information available. Medications Administered No information available. Allergies, Adverse Reactions, Alerts No information available. Results No information available. Plan of Care No information available. Procedures No information available. Vital Signs No information available. Immunizations No information available. Advance Directives No information available.
--- OUTSIDE RECORDS SUMMARY | 2025-02-25 11:08 | XMS_ITS | Clinical Summary ---
Author Organization [facility] Address [address] [place] [address] Care Team Providers Care Public Transportation Inspector Name Role Phone Betty Antonio Primary Care Provider [phone] Source Comments This information has been disclosed [...] therelease of HIV test results or diagnoses. [id number] Allergies Active Allergy Reactions Criticality Noted [...] t be different from the original. [employer] 8882.[id number] Winston MSN RN. she/hers. Health Infectious Diseases -- OPAT (Outpatient Parenteral Antimicrobial Therapy). [phone]. Problem Noted Date Diagnosed Date Tinnitus of both ears 02/02/2025 Chronic pancreatitis 06/16/2024 Fungemia 04/06/2024 Subacute bacterial endocarditis 02/26/2024 Encounters Date Type Department Care Team Description 02/08/2025 Telephone [facility] [place] [facility] Cardiology at [facility] Office [address] [place] [phone] Radha Alvarez MD 02/02/2025 10:00 AM EDT Office Visit [facility] [place] [facility] ENT at [facility] [address] [place] [phone] Ana Lopez PA Postural imbalance (Primary Dx); Tinnitus of both ears 12/23/2024 Telephone [facility] Otolaryngology at [facility] [address] [place] [address] Ana Lopez PA 11/30/2024 Telephone [facility] Otolaryngology at [facility] [address] [place] [address] Ana Lopez PA from Last [...] Recorded In the past 12 months has [employer], gas, oil, or water [employer] threatened to shut off services in your [...] any time in the past 12 m [facility], were you homeless or living in a fci (including now)? No 07/11/2024 Yearly Questionnaire Answer [...] - 146 mmol/L 07/14/2024 4:00 AM EST [facility] Potassium 4.0 3.5 - 5.3 mmol/L 07/14/2024 4:00 AM EST [facility] Chloride 113(H) 98 - 110 mmol/L 07/14/2024 4:00 AM EST [facility] CO2 20(L) 21 - 33 mmol/L 07/14/2024 4:00 AM [facility] Anion Gap 11 3 - 16 mmol/L 07/14/2024 4:00 AM [facility] BUN 13 7 - 25 mg/dL 07/14/2024 4:00 AM [facility] Creatinine 0.58(L) 0.60 - 1.30 mg/dL 07/14/2024 4:00 AM [facility] Glucose 96 70 - 100 mg/dL 07/14/2024 4:00 AM [facility] Calcium 8.5(L) 8.6 - 10.3 mg/dL 07/14/2024 4:00 AM [facility] Osmolality, Calculated 298 278 - 305 mOsm/kg 07/14/2024 4:00 AM EST [facility] EGFR >90 07/14/2024 4:00 AM [facility] Comment: As of 2021, the estimated [...] BLOOD ORDERABLES Final Result Performing Organization Address [facility] Co de Phone Number [facility] [address] [facility] * ED HCV Ab Reflex To HCV Quant (12/14/2023 3:11 PM EDT) HCV Ab Nonreactive Nonreactive 12/14/2023 4:24 PM EDT [facility] Comment:Health Department no tified in accordance with reportable infectious disease guidelines. HCVAB Number 0.04 0.00 - 0.79 S/CO 12/14/2023 4:24 PM EDT [facility] Serum 12/14/2023 3:11 PM EDT 12/14/2023 3:24 PM EDT us Olivia Estevez MD LAB BLOOD ORDERABLES Final Resul t Performing Organization Address City/[facility]/ZIP Co de Phone Number [facility] [address] [facility]. [address] from Last 3 Months or Most Recently [place] [address] [employer] CHOICE O MEDICARE Advance Directives For more information, please contact: [phone] * Full Code (Latest Code Status on [...] 6:53 PM 02/27/2024 12:09 AM Care Teams Public Transportation Inspector Relationship Specialty Start Date End Date Betty Antonio [facility] [address] [address] PCP - General 12/14/23
--- OUTSIDE RECORDS SUMMARY | 2025-02-25 11:08 | XMS_ITS | Encounter Summary ---
Author Organization [facility] Address [address] [place] [address] Care Team Providers Care Shift Production Associate Name Role Phone Betty Antonio Primary Care Provider [phone] Source Comments This information has been disclosed [...] release of HIV test results or diagnoses. [id number] Health Encounter Details Date Type Department Care Team (Late st Contact Info) Description 12/23/2024 Telephone [facility] Otolaryngology at [facility] [address] [place] [address] Ana Lopez PA [address] [place] [address] Social History Tobacco Use Types Packs/Day Years Used Date Smoking Tobacco: Every Day Cigarettes 1 6.5 Started: 2019 Smokeless Tobacco: Never Alcohol Use Standard Drinks/Week Comments Not Currently 0 (1 standard drink = 0.6 oz pur e alcohol) Utilities Answer Date Recorded In the past 12 months has [employer] electric, gas, oil, or water company threatened [...] any time in the past 12 m [facility], were you homeless or living in a penitentiary (including now)? No 07/11/2024 Yearly Questionnaire Answer [...] MA - 12/29/2024 3:52 PM EDT Called [facility] Spoke to Zita she will fax everything to [phone] * Telephone Encounter - Vero Montero MA - 12/29/2024 3:47 PM EDT Per Ana Let's obtain a VNG and Platform prior to next visit, same day if possible. What PT location did sheend up going to? I would like to review PT notes. Patient went to [facility] Can someone please call her to [...] on filedocumented in this encounter Care Teams Shift Production Associate Relationship Specialty Start Date End Date Betty Antonio [address] [place] [address] [place] [address] PCP - General 12/14/23 documented as of this encounter
--- OUTSIDE RECORDS SUMMARY | 2025-02-25 11:08 | XMS_ITS | Encounter Summary ---
Author [place] [address] Care Team Providers Care Financial Secretary Name Role Phone Unavailable Primary Care Provider Unavailabl e Encounter Details Date Type Department Care Team (Late st Contact Info) Description 03/02/2024 Lab Requisition [facility] [address] [place] [id number] Madison Metcalf MD [address] [place] [id number] Acute and subacute infective endocarditis Social History [...] ORDERABLES Final Resu lt Performing Organization Address [facility] Co de Phone Number [facility] [address] [place] [address] * EXTRA GOLD SST (03/02/2024 10:30 AM EDT) Blood VENOUS BLOOD / Unknown 03/02/2024 10:30 AM EDT 03/02/2024 7:12 PM EDT us Madison Metcalf MD CHEMISTRY ORDERABLES Final Resul t Performing Organization Address [facility] de Phone Number [facility] [address] [place] [address] * (ABNORMAL) C-REACTIVE PROTEIN (03/02/2024 10:30 AM EDT) CRP 6.89(H) <=5.00 mg/L 03/02/2024 8:25 PM EDT [facility] Blood VENOUS BLOOD / Unknown 03/02/2024 10:30 AM EDT 03/02/2024 7:12 PM EDT Result Lashell Metcalf MD CHEMISTRY ORDERABLES Final Resul t Performing Organization Address [facility] de Phone Number [facility] [address], [place] [address] * (ABNORMAL) SEDIMENTATION RATE AUTOMATED (03/02/2024 10:30 AM EDT) Sed Rate 39(H) 0 - 30 mm/hr 03/02/2024 7:58 PM EDT [facility] [employer] [facility] Blood VENOUS BLOOD / Unknown 03/02/2024 10:30 AM EDT 03/02/2024 7:12 PM EDT us Madison Metcalf MD HEMATOLOGY ORDERABLES Final Resu lt [facility] [address] [facility] , [place] [address] * (ABNORMAL) COMPREHENSIVE METABOLIC PANEL (03/02/2024 10:30 [...] mL/min/1.7 3 m2 03/02/2024 8:25 PM EDT [facility] Comment:Estimated GFR was ca lculated using the CKD-EPIcr (2020) equation refit without race. The equation is recommended by the National Kidney Foundation - [place] Society of Nephrology Task Force. Blood VENOUS BLOOD / Unknown 03/02/2024 10:30 AM EDT 03/02/2024 7:12 PM EDT us Madison Metcalf MD CHEMISTRY ORDERABLES Final Resul t [facility] [address] [facility] , [place] [address] [facility] 1 [place] [address] * (ABNORMAL) CBC WITH DIFF [...] 03/02/2024 7:58 PM EDT [facility] MPV 10.8 8.8 - 12.5 fL 03/02/2024 7:58 PM EDT [facility] Neut Percent 52.7 % 03/02/2024 7:58 PM EDT [facility] Comment:Neutrophils equals s egs plus bands Imm Gran% 0.6 % 03/02/2024 7:58 PM EDT [facility] Comment:Automated count of m etamyelocytes, myelocytes and promyelocytes. Lymph Percent 30.8 % 03/02/2024 7:58 PM EDT [facility] Turner Percent 5.8 % 03/02/2024 7:58 PM EDT [facility] Eos Percent 8.6 % 03/02/2024 7:58 PM EDT [facility] Baso Percent 1.5 % 03/02/2024 7:58 PM EDT [facility] Neut # 3.8 1.6 - 6.1 x10(3)/[facility] 03/02/2024 7:58 PM EDT [facility] Comment:Neutrophils equals s egs plus bands IMMGRAN# 0.0 0.0 - 0.1 x10(3)/[facility] 03/02/2024 7:58 PM EDT [facility] Comment:Automated count of m etamyelocytes, myelocytes and promyelocytes. An absolute IG <0.1 is reported as 0.0. Lymph # 2.2 1.2 - 3.9 x10(3)/[facility] 03/02/2024 7:58 PM EDT [facility] Turner # 0.4 0.3 - 0.9 x10(3)/[facility] 03/02/2024 7:58 PM EDT [facility] Eos# 0.6(H) 0.0 - 0.5 x10(3)/[facility] 03/02/2024 7:58 PM EDT [facility] Baso # 0.1 0.0 - 0.1 x10(3)/[facility] 03/02/2024 7:58 PM EDT [facility] Blood VENOUS BLOOD / Unknown 03/02/2024 10:30 AM EDT 03/02/2024 7:12 PM EDT us Madison Metcalf MD HEMATOLOGY ORDERABLES Final Resu lt [facility] [employer] [employer] [facility] [address] [facility] [address] , [address] [place] [id number] documented in this encounter Visit Diagnoses Diagnosis 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
--- OUTSIDE RECORDS SUMMARY | 2025-02-25 11:08 | XMS_ITS | Clinical Summary ---
Author Organization [facility] Address [address] [facility] [place] [address] Phone Care Team Providers Care Pipefitter Welder Name Role Phone Unavailable Primary Care Provider [...]
--- OUTSIDE RECORDS SUMMARY | 2025-02-25 11:08 | XMS_ITS | Referral Summary ---
Author Organization [employer] [facility] Address [address] [place] [address] Care Team Providers Care Casey Saw Operator Name Role Phone Paco Betty FRANK Primary [...] Date Gordo rded Speak language other than Armenian at home Not on file 10/19/2023 Want [...] Advance Directives For more information, please contact: [phone] * Full Code (Latest Code Status on File) Date Activated Date Inactivated Comments 10/19/2023 6:17 PM 10/26/2023 4:31 PM Care Teams Casey Saw Operator Relationship Specialty Start Date End Date Betty Antonio, MUSIC PRODUCER [address] [address] PCP - General Nurse Practitioner 10/19/23
--- OUTSIDE RECORDS SUMMARY | 2025-02-25 11:08 | XMS_ITS | Encounter Summary ---
Author Organization Healthcare Address [address] [place] [address] Care Team Providers Care Residential Advisor Name Role Phone AntonioVickishanna Coleman APRN Primary Care Provider [phone] Reason for Visit * Reason Comments Med Refill Encounter Details Date Type Department Care Team (Late st Contact Info) Description 08/07/[address] [facility] [address] [place] [address] Albert Fierro PA [address] [place] [address] Social History Tobacco Use Types [...] drink first t luzmaria in the morning (EYE-WALL COVERING CONTRACTOR) to steady your nerves or to get [...] 30 day supply with 2 refill(s) to [facility]. documented in this encounter Plan of [...] documented as of this encounter Care Teams Residential Advisor Relationship Specialty Start Date End Date Betty Antonio APRN [address] [place] [address] PCP - General 05/31/21 documented as of this encounter
--- OUTSIDE RECORDS SUMMARY | 2025-02-25 11:08 | XMS_ITS | Encounter Summary ---
Author Organization [facility] Address [address] [place] [address] Care Team Providers Care Electric Clock Mechanic Name Role Phone Betty Antonio Primary Care Provider [phone] Source Comments This information has been disclosed [...] release of HIV test results or diagnoses. [id number] Health Encounter Details Date Type Department Care Team (Late st Contact Info) Description 02/08/2025 Telephone [facility] Cardiology at [facility] [address] [facility] [address] [place] [phone] Radha Alvarez MD [address] [facility] [address] [place] [address] Social History Tobacco Use Types [...] any time in the past 12 m [facility], were you homeless or living in a long term (including now)? No 07/11/2024 Yearly Questionnaire Answer [...] that Antonio ordered Please call Caitlyn @ [phone] documented in this encounter Plan of Treatment Not on file documented as of this encounter Visit Diagnoses Not on filedocumented in this encounter Care Teams Electric Clock Mechanic Relationship Specialty Start Date End Date Betty Antonio [address] [place] [address] PCP - General 12/14/23 documented as of this encounter
--- OUTSIDE RECORDS SUMMARY | 2025-02-25 11:08 | XMS_ITS | Encounter Summary ---
Author Organization [facility] Address [facility] [place] [address] Care Team Providers Care Training Professional Name Role Phone Betty Antonio Primary Care Provider [phone] Source Comments This information has been disclosed [...] release of HIV test results or diagnoses. [id number] Health Encounter Details Date Type Department Care Team (Late st Contact Info) Description 02/26/2024 Ophth Exam [facility] Ophthalmology at [address] [place] [phone] Raul Raymond MD [address] [place] [address] Social History Tobacco Use Types Packs/Day Years Used Date Smoking Tobacco: Every Day Cigarettes 1 6.5 Started: 2019 Smokeless Tobacco: Never Alcohol Use Standard Drinks/Week Comments Not Currently 0 (1 standard drink = 0.6 oz pur e alcohol) Utilities Answer Date Recorded In the past 12 months has [employer], gas, oil, or water company threatened [...] in the past [address] [facility], were you homeless or living in a nursing home (including now)? No 02/22/2024 Comments No Sex [...] on filedocumented in this encounter Care Teams Training Professional Relationship Specialty Start Date End Date Betty Antonio [address] [place] [address] [place] [address] PCP - General 12/14/23 documented as of this encounter
--- OUTSIDE RECORDS SUMMARY | 2025-02-25 11:08 | XMS_ITS | Encounter Summary ---
Author Organization [facility] Address [facility] [place] [address] Care Team Providers Care Anode Adjuster Name Role Phone Betty Antonio Primary Care Provider [phone] Source Comments This information has been disclosed [...] release of HIV test results or diagnoses. [id number] Health Encounter Details Date Type Department Care Team (Late st Contact Info) Description 04/10/2024 Ophth Exam [facility] Ophthalmology at [address] [place] [phone] Elan Cates MD [address] [place] [address] Social History Tobacco Use Types Packs/Day Years Used Date Smoking Tobacco: Every Day Cigarettes 1 6.5 Started: 2019 Smokeless Tobacco: Never Alcohol Use Standard Drinks/Week Comments Not Currently 0 (1 standard drink = 0.6 oz pur e alcohol) Utilities Answer Date Recorded In the past 12 months has [employer] electric, gas, oil, or water company threatened [...] time in the past 12 m [facility], were you homeless or living in a senior care (including now)? No 04/04/2024 Yearly Questionnaire Answer [...] on filedocumented in this encounter Care Teams Anode Adjuster Relationship Specialty Start Date End Date Betty Antonio [address] [place] [address] PCP - General 12/14/23 documented as of this encounter
--- OUTSIDE RECORDS SUMMARY | 2025-02-25 11:08 | XMS_ITS | Clinical Summary ---
Author Organization [employer] Address [address] [place] [address] Care Team Providers Care Large Animal Veterinarian Name Role Phone Paco Betty FRANK Primary [...] Date Gordo rded Speak language other than [place] Citizen at home Not on file 10/19/2023 Want [...] Last Indicated C. difficile 10/19/2023 10/19/2023 Insurance [facility] MEDICARE PPO Advance Directives For more information, please contact: [phone] * Full Code (Latest Code Status on File) Date Activated Date Inactivated Comments 10/19/2023 6:17 PM 10/26/2023 4:31 PM Care Teams Large Animal Veterinarian Relationship Specialty Start Date End Date Betty Antonio APRN [address] [address] PCP - General Nurse Practitioner 10/19/23
--- OUTSIDE RECORDS SUMMARY | 2025-02-25 11:08 | XMS_ITS | Clinical Summary ---
Author Organization [facility] Address [address] [place] [address] Care Team Providers Care Brigadier Name Role Phone Leila [place] MD Primary Care Provider + [phone] Social History Tobacco Use Types Packs/Day Years Used Date Smoking Tobacco: Never Assessed Comments Unknown Sex and Gender Information Value Date Recorded Sex Assigned at Not on file Legal Sex Female 3:11 PM EDT Gender Identity Not on file Sexual Orientation Not on file Plan of Treatment Not on file Insurance [employer] Care Teams Brigadier Relationship Specialty Start Date End Date Leila [place] MD [address] [facility] PCP - General Family Medicine 07/12/14
--- OUTSIDE RECORDS SUMMARY | 2025-02-25 11:08 | XMS_ITS | Clinical Summary ---
Author Organization [facility] Address [address] [place] [address] Care Team Providers Care Drying Machine Operator Package Yarns Name Role Phone AntonioBetty zamorano [place] FRANK Primary Care Provider [phone] Allergies Active Allergy Reactions Criticality Noted Date [...] time each day. Active cholecalciferol 250 MCG ([address] UT) capsule Take 5,000 Units by mouth [...] place to sleep or slept in a custodial (including now)? No 09/27/2023 CAGE ASSESSMENT Answer [...] drink first t luzmaria in the morning (EYE-LITIGATION COUNSEL) to steady your nerves or to get rid of a hangover? 0 09/27/2023 CAGE Questionnaire Score 0 024 Utilities Answer Date Recorded In the past 12 months has th e Social IQ (Social Influence Quotient), gas, oil, or water company threatened to [...] 02/15/2008 UKY-Zoster Vaccines (1 of 2) 02/15/2008 [id number]-52 Vaccine (3 - season) 2024 09/05/2021, 01/10/2021 [...] this topic Medical Devices Implanted Type Area Engineering Design Manager Device Identifier Shelf Expiration Date Model / Serial / Lot Stent Biliary 2.3 X 50mm - [id number] Implanted:Qty: 1 on 02/25/2023 by Flavio Noble MD at [facility]-[id number] 10/04/2025 [id number] / / [id number] Stent Biliary 2.3 X 50mm - [id number] Implanted:Qty: 1 on 02/25/2023 by Flavio Noble MD at [facility]-[id number] 11/12/2025 [id number] / / [id number] Procedures Procedure Name Priority Date/Time Associated Diagnosis [...] Lolly Johnson MD Proceduralist Celso Zimmerman Endo Patient Scheduling Coordinator Preprocedure A history and physical has been [...] of bowel preparation was evaluated using the Erlanger Bowel Preparation Scale with scores of: right [...] Antibody Negative Negative 04/01/2023 4:45 PM EDT [facility] Blood Venous blood specimen / Unknown Venipuncture / Unknown 04/01/2023 3:49 PM EDT 04/01/2023 4:03 PM EDT Juan Jose Novak MD LAB BLOOD ORDERABLES Final Resul t [facility] [address] [place] [address] * Hemoglobin A1c (01/15/2023 5:04 PM EDT) [...] Adults <6.0% Children and Adolescents <7.5% Source: [place] [employer]. Standards of medical care in diabetes,2017. Diabetes Care.2017:40 (suppl 1):S1-S135. HbA1c assay performed by an ion-exchange chromatography method that is certified traceable to the DCCT. us Albert SANCHEZ LAB BLOOD ORDERABLES Final Re sult [facility] [address] [place] [address] from Last 3 Months or Most Recently Relevant to Health Maintenance Insurance [facility] MEDICARE Advance Directives * Full Code (Latest [...] Patient has decision-making capacity? Yes Care Teams Drying Machine Operator Package Yarns Relationship Specialty Start Date End Date Betty Antonio APRN [address] [place] [address] PCP - General 05/31/21
--- OUTSIDE RECORDS SUMMARY | 2025-02-25 11:08 | XMS_ITS | Encounter Summary ---
Author Organization Healthcare Address [address] [place] [address] Care Team Providers Care Manager Of Network Name Role Phone AntonioBetty zamorano [place] FRANK Primary Care Provider [phone] Encounter Details Date Type Department Care Team (Late st Contact Info) Description 04/04/2023 Billing Only Encounter [facility] Internal Medicine [address] [place] [address] Luz Jaime, FINANCIAL MANAGEMENT CONSULTANT [address] [place] [address] Social History Tobacco Use Types [...] drink first t luzmaria in the morning (EYE-WEARING APPAREL ASSEMBLER) to steady your nerves or to get [...] documented as of this encounter Care Teams Manager Of Network Relationship Specialty Start Date End Date Betty Antonio APRN [address] [place] [address] PCP - General 05/31/21 documented as of this encounter
[2025-02-25] MEDS: LACTATED RINGERS 1000ML 1,000 ML 999 ML IV (11:09)
[2025-02-25] MEDS: LOPERAMIDE 2MG CAPSULE 4 MG PO (11:09)
[2025-02-25] MEDS: ONDANSETRON 4MG/2ML VIAL 4 MG IV (11:09)
[2025-02-25 11:11] LABS: Basophils # 0.1 K/mm3 (0-0.2); Basophils % 0.5 % (0.1-2.0); Eosinophils # 0.2 Kmm3 (0.0-0.4); Eosinophils % 1.9 % (0.1-12.0); Hematocrit 46.7 % (37.0-47.0); Hemoglobin 15.7 g/dL (12.2-16.2); Immature Granulocytes # 0.08 10^3uL; Immature Granulocytes % 0.8 %; Lymphocytes # 2.1 K/mm3 (0.7-4.5); Lymphocytes % 20.6 % (10-50); Mean Corpuscular HGB Conc 33.6 g/dL (31.8-35.4); Mean Corpuscular Hemoglobin 30.3 pg (27.0-31.2); Mean Corpuscular Volume 90.2 fl (81-99); Mean Platelet Volume 9.5 fl (7.4-10.4); Monocytes # 0.4 K/mm3 (0.1-1.0); Monocytes % 4.1 % (1.7-9.3); Neutrophils # 7.2 K/mm3 (1.8-7.8); Neutrophils % 72.1 % (37.0-80.0); Nucleated Red Blood Cells # 0 10^3/uL; Nucleated Red Blood Cells % 0 %; Platelet Count 257 K/mm3 (142-424); Red Blood Count 5.18 M/mm3 (4.20-5.40); Red Cell Distribution Width 14.9 % (11.5-17.5); Red Cell Distribution Width-SD 49.2 fL; White Blood Count 9.9 K/mm3 (4.8-10.8)
[2025-02-25 11:17] LABS: Lactate Venous 1.4 mmol/L (0.4-2.0); VBG Base Excess -9.4 mmol/L (-2.4-2.3); VBG HCO3 16.9 mmol/L (23-30); VBG Oxygen Saturation 72.1 % (50-70); VBG PCO2 34.6 mmol/L (35-51); VBG PH 7.31 mmol/L (7.31-7.41); VBG PO2 36.8 mmol/L (28-40)
--- NOTE | 2025-02-25 11:18 | HMH.EDGENADL ---
Discharge Plan Disposition Patient Disposition: Home, Self-Care Prescriptions Prescriptions: New ondansetron 4 mg tablet,disintegrating 4 mg PO Q6H PRN (Reason: nausea and vomiting) Qty: 10 0RF No Action lidocaine [Aspercreme (lidocaine)] 4 % adhesive patch,medicated 1 patch topical DAILYP PRN (Reason: Back Pain) levetiracetam 500 mg tablet 500 mg PO BID Patient Comments: TAKE 1 TABLET BY MOUTH TWICE DAILY promethazine 25 mg tablet 25 mg PO Q6H PRN (Reason: nausea and vomiting) Qty: 30 0RF metoclopramide HCl 10 mg tablet 10 mg PO TID propranolol 10 mg tablet 10 mg PO TID Patient Comments: TAKE 1 TABLET BY MOUTH AT BEDTIME FOR 4 DAYS THEN 1 TWICE DAILY FOR 4 DAYS THEN 1 THREE TIMES DAILY FOR 22 DAYS pantoprazole 40 mg tablet,delayed release (DR/EC) See Rx Instructions .ROUTE .COMPLEX Qty: 180 0RF Dose Instruction: TAKE 1 TABLET BY MOUTH TWICE DAILY FOR STOMACH Rx Instructions: TAKE 1 TABLET BY MOUTH TWICE DAILY FOR STOMACH pregabalin [Lyrica] 200 mg capsule 200 mg PO BID 30 Days Qty: 60 2RF Pro Fe 180 mg iron capsule See Rx Instructions .ROUTE .COMPLEX Qty: 90 0RF Dose Instruction: Take 1 capsule by mouth once daily Rx Instructions: Take 1 capsule by mouth once daily Zenpep 25,000-79,000- 105,000 unit capsule,delayed release(DR/EC) See Rx Instructions .ROUTE .COMPLEX Qty: 100 0RF Dose Instruction: TAKE 1 CAPSULE BY MOUTH THREE TIMES DAILY WITH FOOD Rx Instructions: TAKE 1 CAPSULE BY MOUTH THREE TIMES DAILY WITH FOOD paroxetine HCl 40 mg tablet See Rx Instructions .ROUTE .COMPLEX Qty: 30 0RF Dose Instruction: TAKE 1 TABLET BY MOUTH ONCE DAILY FOR DEPRESSION Rx Instructions: TAKE 1 TABLET BY MOUTH ONCE DAILY FOR DEPRESSION buspirone 7.5 mg tablet See Rx Instructions .ROUTE .COMPLEX Qty: 60 0RF Dose Instruction: Take 1 tablet by mouth twice daily Rx Instructions: Take 1 tablet by mouth twice daily hydroxyzine HCl 25 mg tablet See Rx Instructions .ROUTE .COMPLEX Qty: 90 0RF Dose Instruction: TAKE 1 TABLET BY MOUTH THREE TIMES DAILY NEEDED FOR ANXIETY Rx Instructions: TAKE 1 TABLET BY MOUTH THREE TIMES DAILY NEEDED FOR ANXIETY temazepam 15 mg capsule 15 mg PO HS 30 Days Qty: 30 2RF ondansetron HCl 4 mg tablet 4 mg PO Q8HP PRN (Reason: nausea and vomiting) Referrals Follow up/Referrals: Betty Antonio APRN [Primary Care Provider, Medical] - See instructions Activity Restrictions/Add. Instructions Additional Instructions/Restrictions: Be sure to drink plenty of electrolyte containing fluids including Pedialyte, Gatorade, etc. Call your family doctor to establish care for this visit to the emergency department and schedule follow-up within 48 hours to ensure improvement. If you have any worsening of your condition or any other concerning signs or symptoms, return to the emergency department or your primary care doctor for further evaluation. Zofran sent to the pharmacy, take this every 6 hours as needed for nausea and vomiting. You take Imodium 4 mg every 6 hours as needed as well. This is [id number] Clinical Impressions Clinical Impression: Abdominal pain, vomiting, and diarrhea Instructions Patient Instructions: DI for Diarrhea and Traveler's Diarrhea -- Adult, DI for Diarrhea and Traveler's Diarrhea -- Child, DI for Nausea -- Adult, DI for Nausea -- Child Print Language Print Language: [place] Discharge ED Provider: Marko Snyder General Adult HPI General Chief complaint: Nausea/Vomiting/Diarrhea Stated complaint: poss c-diff Time Seen by Provider: 02/25/25 10:44 Mode of Arrival: Ambulatory Source of Information: Patient Description of Symptoms (Recalled from ER Triage Doc. by RN): Patient presents to ED from home with c/o right lower abdominal pain and dark diarrhea that started yesterday. Reports concerns she has C Diff, notes hx. Denies recent ABX use, startes she does take Iron daily. History of Present Illness HPI narrative: Please note that above description of symptoms, in this electronic medical record under categorization of recalled from ER triage doctor by RN are reflective of an initial nursing assessment, however, is not reflective of my full history and physical exam that was personally taken and clarified. Consequentially, this preceding description of symptoms, which may include the patient's categorized chief complaint in the EMR, do not reflect my personal clinical impression, and the ultimate description of history of present illness and patient stated complaints should be deferred to this section of the note. Unless stated otherwise or congruent with this section of the note, additional signs, symptoms, or incongruence should be interpreted as inaccurate with my clinical impression. Related Data Home Medications ?Medication ?Instructions ?Recorded ?Confirmed lidocaine 4 % topical patch 1 patch topical DAILYP PRN Back 08/16/23 02/19/25 (Aspercreme (lidocaine)) Pain ondansetron HCl 4 mg tablet 4 mg PO Q8HP PRN nausea and 10/16/23 02/19/25 vomiting levetiracetam 500 mg tablet 500 mg PO BID 05/19/24 02/19/25 metoclopramide HCl 10 mg tablet 10 mg PO TID 07/20/24 02/19/25 propranolol 10 mg tablet 10 mg PO TID 02/19/25 02/19/25 Previous Rx's ?Medication ?Instructions ?Recorded pantoprazole 40 mg tablet,delayed See Rx Instructions .Route 01/07/25 release .COMPLEX #180 tabs promethazine 25 mg tablet 25 mg PO Q6H PRN nausea and 01/19/25 vomiting #30 tabs pregabalin 200 mg capsule (Lyrica) 200 mg PO BID 30 days #60 caps 01/20/25 polysaccharide iron complex 180 mg See Rx Instructions .Route 01/27/25 iron capsule (Pro Fe) .COMPLEX #90 caps [id number] See Rx Instructions .Route 01/29/25 25,000-79,000-105,000 unit .COMPLEX #100 caps capsule,delayed rel (Zenpep) paroxetine HCl 40 mg tablet See Rx Instructions .Route 01/29/25 .COMPLEX #30 tabs buspirone 7.5 mg tablet See Rx Instructions .Route 02/01/25 .COMPLEX #60 tabs hydroxyzine HCl 25 mg tablet See Rx Instructions .Route 02/01/25 .COMPLEX #90 tabs temazepam 15 mg capsule 15 mg PO HS Insomnia 30 days #30 02/01/25 caps ondansetron 4 mg disintegrating 4 mg PO Q6H PRN nausea and 02/25/25 tablet vomiting #10 tabs Allergies Allergy/AdvReac Type Severity Reaction Status Date / Time levofloxacin (From LEVAQUIN) Allergy Unknown SEIZURES Verified 02/19/25 15:12 [facility] Disclaimer: The information contained in this section may have been updated after the patient was seen, as this information can be updated by other users. Medical History RUQ abdominal pain Nausea Urinary tract infection Oral candidiasis Rib pain on left side Acute pancreatitis Presence of pancreatic duct stent Pancreatic disease Constipation Lower abdominal pain Neuropathy Depression Acute cystitis without hematuria Abdominal pain Abnormal electrocardiogram [ECG] [EKG] Dyspnea Tobacco dependence syndrome History of suicide attempt Mood disorder Tobacco abuse Marijuana abuse Multiple lacunar infarcts History of syncope Elevated blood pressure reading Bradycardia Memory loss Encephalopathy Contusion, hip Syncope and collapse SIRS (systemic inflammatory response syndrome) Gastroesophageal reflux disease Closed right hip fracture Hip fracture Surgical History History of repair of both hip joints History of appendectomy History of laparoscopic cholecystectomy History of hysterectomy History of tonsillectomy History of hip replacement History of aortic valve replacement History of aortic valve replacement with porcine valve Family History Other Diabetes Hypertension Stroke Social History Smoking Status: Current every day smoker tobacco type: cigarettes packs per day: 1 second hand exposure: Yes alcohol intake: never substance use type: other current occupational status: retired Travel in the last 8 weeks?: None household members: family and children housing: house current occupational exposures/hazards: No caffeine: Yes Have you lived/traveled outside [place] in past 30 days?: No Contact w/someone who lives/traveled outside US past 30 days?: No Exposure to someone with infectious disease in past 14 days?: No Do you have a fever (greater than 100.4 F or 38 C)?: No Have you tested positive for COVID-19?: No Exposed to someone with COVID-19 in past 14 days?: No Do you have a sore throat?: No Do you have a cough?: No Do you have any weakness?: Yes Do you have any diarrhea?: Yes Are you experiencing any unusual bleeding?: No Do you have any muscle aches/pain?: No Do you have any abdominal pain?: Yes Are you experiencing loss of taste or smell?: No Other Medical History Have you received the Flu Vaccine for this season: No Have you received the Pneumonia Vaccine: No ROS Obtained: Yes All systems reviewed & no additional complaints except as documented Physical Exam General General appearance: alert Head Head exam: atraumatic and normocephalic Eye Eye exam: Present normal appearance, PERRL and EOMI Neck Neck exam: Present normal inspection, full ROM and trachea midline Respiratory Respiratory exam: Absent respiratory distress, wheezes, stridor, accessory muscle use or prolonged expiratory phase Cardiovascular Cardiovascular exam: Present other (Pulses equal symmetric in upper and lower extremities) Abdominal Exam Abdominal exam: Present soft; Absent distention, tenderness or pulsatile mass Extremities Exam Extremities exam: Absent edema Neurological Exam Neurological exam: Present alert, oriented X3 and CN II-XII intact; Absent motor sensory deficit Skin Skin exam: Present warm and dry; Absent diaphoresis or erythema Medical Decision Making Medical Records Medical records reviewed: Yes I reviewed the patient's medical records. Screening: Per USPSTF and CDC recommendations, given the prevalence of disease in our region, it is our hospital?s policy to screen for HIV and viral Hepatitis for all patients aged 18 and over and those with ongoing risk factors. [place] Inquiry Pt receiving controlled substance: No [place] was queried for this patient: No Vital Signs: 02/25/25 10:45 02/25/25 10:46 02/25/25 10:59 Temperature 97.6 F Temperature Source Axillary Pulse Rate 65 67 Pulse Rate [Right Brachial] 74 Respiratory Rate 19 20 19 Blood Pressure Blood Pressure [Left Arm] 167/92 H Blood Pressure Mean Blood Pressure Mean [Left Arm] 117 Blood Pressure Source [Left Arm] Automatic Cuff 02 Sat by Pulse Oximetry 98 96 99 Oxygen Delivery Method Room Air Room Air 02/25/25 11:15 02/25/25 11:32 02/25/25 12:00 Temperature Temperature Source Pulse Rate 53 L 54 L 64 Pulse Rate [Right Brachial] Respiratory Rate 19 19 Blood Pressure 139/53 L 147/54 H Blood Pressure [Left Arm] Blood Pressure Mean 86 85 Blood Pressure Mean [Left Arm] Blood Pressure Source [Left Arm] 02 Sat by Pulse Oximetry 100 100 96 Oxygen Delivery Method Room Air Room Air Room Air 02/25/25 12:34 02/25/25 13:00 02/25/25 13:30 Temperature Temperature Source Pulse Rate 71 66 64 Pulse Rate [Right Brachial] Respiratory Rate 18 Blood Pressure 165/77 H 139/67 133/59 L Blood Pressure [Left Arm] Blood Pressure Mean 92 91 83 Blood Pressure Mean [Left Arm] Blood Pressure Source [Left Arm] 02 Sat by Pulse Oximetry 98 100 96 Oxygen Delivery Method Room Air Room Air Lab Data Lab Results 02/25/25 11:00: WBC 9.9, RBC 5.18, Hgb 15.7, Hct 46.7, MCV 90.2, MCH 30.3, MCHC 33.6, RDW 14.9, Plt Count 257, MPV 9.5, Neut % (Auto) 72.1, Lymph % (Auto) 20.6, [place] % (Auto) 4.1, Eos % (Auto) 1.9, Baso % (Auto) 0.5, Neut # (Auto) 7.2, Lymph # (Auto) 2.1, [place] # (Auto) 0.4, Eos # (Auto) 0.2, Baso # (Auto) 0.1, Sodium 141, Potassium 4.5, Chloride 108 H, Carbon Dioxide 16 L, Anion Gap 21.5 H, BUN 20 H, Creatinine 0.90, Estimated Creat Clear 63, Estimated GFR 62, Est GFR ( Amer) 76, Glucose 110 H, Calcium 10.4 H, Total Bilirubin 0.7, AST 37 H, ALT 24, Alkaline Phosphatase 193 H, Total Protein 9.0 H D, Albumin 5.0, Globulin 4.0 H, Albumin/Globulin Ratio 1.3, Lipase 66 02/25/25 11:08: VBG pH 7.31, VBG pCO2 34.6 L, VBG pO2 36.8, VBG HCO3 16.9 L, VBG Total CO2 18.0 L, VBG O2 Saturation 72.1 H, VBG Base Excess -9.4 L, VBG Lactic Acid 1.4 02/25/25 12:08: Lactate 1.0 02/25/25 11:00 02/25/25 11:00 Orders (Tests/Meds): ED MEDICATIONS Discontinued Medications Generic Name Dose Route Start Last Admin Trade Name Freq PRN Reason Stop Dose Admin Lactated Ringer's 1,000 mls @ 999 mls/hr 02/25/25 10:54 02/25/25 11:09 Lactated Ringer's 1000 Ml Bag IV 02/25/25 11:54 999 mls/hr .Q1H1M ONE Administration Iopamidol 80 ml 02/25/25 11:53 02/25/25 11:53 Iopamidol-370 (76%);100ml Bottle IV 02/25/25 11:54 80 ml ONCE ONE Administration Loperamide HCl 4 mg 02/25/25 10:54 02/25/25 11:09 Loperamide 2mg Capsule PO 02/25/25 10:55 4 mg ONCE ONE Administration Morphine Sulfate 4 mg 02/25/25 12:15 02/25/25 12:28 Morphine 4mg/Ml Syringe IV 02/25/25 12:16 4 mg ONCE ONE Administration Ondansetron HCl 4 mg 02/25/25 10:54 02/25/25 11:09 Ondansetron 4mg/2ml Vial IV 02/25/25 10:55 4 mg ONCE ONE Administration Sodium Chloride 10 ml 02/25/25 11:53 02/25/25 11:53 Sodium Chloride 0.9% 10ml Syr (Rad Only) IV 02/25/25 11:54 10 ml ONCE ONE Administration Sodium Chloride 50 ml 02/25/25 11:53 02/25/25 11:53 0.9 % Sodium Chloride 50 Ml Vial IV 02/25/25 11:54 50 ml ONCE ONE Administration ORDERS Category Date Time Status CT angio abdomen pelvis Stat Cat Scan 02/25/25 11:34 Taken CBC w/Auto Diff [Complete Blood Count Auto Diff] Stat Lab 02/25/25 11:00 Completed CMP [Comprehensive Metabolic Panel] Stat Lab 02/25/25 11:00 Completed Diarrhea 23 Panel, PCR Stat Lab 02/25/25 10:54 Ordered Lactic Acid Stat Lab 02/25/25 12:08 Completed Lipase Stat Lab 02/25/25 11:00 Completed Blood Culture Stat Micro 02/25/25 12:28 Received VBG [Venous Blood Gas] Stat RT 02/25/25 11:08 Completed Medical Decision Narrative: 65-year-old female history of hypertension past infection with C. difficile, chronic pneumobilia since 2019 presenting with vomiting and diarrhea. She states that the diarrhea started 2 days ago, has not been getting any better and is getting worse. Moderate to severe abdominal cramping, nausea and vomiting. Some flecks of blood in the vomit, no blood in the stool. No fevers or chills. Able to tolerate p.o. intake, but still vomiting with minimal intake. History obtained with patient. On arrival, very uncomfortable. She states that she has had numerous bowel movements today that are thin, watery. She has not had any episodes of incontinence. No sick contacts she knows of. No recent antibiotics. She does state that she has had pain with oral intake described as general, crampy, achy pain after eating. History obtained in patient. On arrival, patient hemodynamically stable, alert, oriented x4, appropriate, GCS 15, moving all extremities spontaneously, pupils equal and reactive to light. Full physical exam performed and significant for well-appearing female who is in no acute distress, but obviously uncomfortable. Abdomen is soft, but diffusely tender. Nondistended. No evidence of peritonitis. Differential includes colitis, enteritis, gastroenteritis, PUD, perforation, occlusive mesenteric ischemia, nonocclusive mesenteric ischemia, diverticulitis, among others. Patient placed on continuous cardiac monitoring and continuous pulse ox with initial blood pressure 167/92, heart rate 65, saturation 98% on room air. Patient was given Lomotil, fluids, Zofran for symptomatic management and correction of underlying abnormalities. Workup independently interpreted and significant for compensated metabolic acidosis with bicarb low 16.9, CO2 low at 34.6, normal pH with normal lactate. Nonactionable CBC with normal white count. Chemistry with anion gap of 21 BUN of 20. Alkaline phosphatase mildly elevated 193. Unremarkable chemistry otherwise. On independent interpretation of imaging, patient has chronic pneumobilia. No evidence of pneumatosis intestinalis. No obvious vascular abnormality or significant stenosis. Patient does have air and fluid-filled loops of bowel consistent with gastroenteritis. In the right lobe of her liver, has large contrast-enhancing mass, likely hemangioma. See radiology read for full review of final results. Reevaluation, patient feeling much better, still unable to provide stool sample. On reevaluation, patient resting comfortably. Given patient presentation, workup, history, this most likely represents gastroenteritis. Because patient at baseline without signs or symptoms of clinical decompensation, deemed appropriate for discharge. Results were relayed to patient who voiced understanding and were agreeable to outpatient management and follow up. I discussed my clinical impression with patient and answered all questions. At this time, the evidence for any other entities in the differential is insufficient to warrant any further testing or ED observation. This was explained as well. Advisory was given that persistent or worsening symptoms require further evaluation. I confirmed the understanding of this discussion. 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 Electronic dredge hand of the spoken language may permit errors. Although I have reviewed the note, some errors may still exist. Critical Care Critical Care Time Critical Care Time: No
[2025-02-25 11:20] LABS: Chloride 108 mmol/L (98-107); Potassium 4.5 mmoL/L (3.5-5.1); Sodium 141 mmol/L (136-145)
--- NOTE | 2025-02-25 11:21 | PC.NURSE ---
Patient attempted to provide stool sample upon arrival, states she is unable to at this time.
[2025-02-25 11:22] LABS: Blood Urea Nitrogen 20 mg/dl (7-17); Creatinine Clearance Estimated 63 mL/min (50-200); Estimated Glomerular Filt Rate 62 ml/min (>60); GFR (African American) 76 ML/MIN (>60)
[2025-02-25 11:23] LABS: Alanine Aminotransferase 24 U/L (12-78); Albumin/Globulin Ratio 1.3 (1.1-1.8); Alkaline Phosphatase 193 U/L (38-126); Anion Gap 21.5 mEq/L (5-15); Aspartate Amino Transferase 37 U/L (14-36); Bilirubin,Total 0.7 mg/dl (0.2-1.3); Calcium 10.4 mg/dl (8.4-10.2); Carbon Dioxide 16 mmol/L (22.0-30.0); Glucose 110 mg/dl (74-100)
--- NOTE | 2025-02-25 11:34 | CT_ITS ---
FINAL REPORT TECHNIQUE: Thin section axial images were obtained through the abdomen and pelvis after contrast injection per CT angiogram protocol. Multiplanar reconstruction images were obtained from the axial data. This exam was performed with techniques to keep radiation dose as low as reasonably achievable. This includes automated exposure control, adjustment of the MA and KVP, and iterative reconstruction technique. CLINICAL HISTORY: intestinal angina, food aversions, vasculopathy COMPARISON: None FINDINGS: CTA: There is moderate to diffuse plaque disease in the abdominal aorta. The celiac axis and superior mesenteric artery are widely patent. The inferior mesenteric artery is occluded proximally. The renal arteries are widely patent. NONVASCULAR: There are fatty changes present in the liver. In the inferior subcapsular right hepatic lobe there is a hyperdense area, which measures up to 28 mm. This was not evident on the prior exam, although previous images were obtained during a different phase of enhancement. This could be secondary to transient hepatic attenuation difference, less likely mass. There is hyperdensity in the gastric lumen adjacent to the posterior wall, which may reflect ingested material though active bleeding cannot be excluded. The gallbladder is absent. Pneumobilia is noted with mild biliary ductal dilatation, the appearance is similar to the prior exam. The spleen, adrenal glands, and kidneys are normal. There is air also noted in the pancreatic duct, though on the previous exam the pancreatic duct was mildly dilated. There are punctate calcifications in the pancreatic head, likely the sequela of chronic pancreatitis. No bowel wall thickening is identified. Within the pelvis, no mass or free fluid are noted. The patient is post hysterectomy. IMPRESSION: 1. There is no evidence of significant central mesenteric arterial occlusive disease. 2. The portal vein is not well evaluated secondary to an earlier arterial phase of enhancement when compared to the prior exams. 3. There is hyperdense material in the gastric lumen at the posterior wall, favor ingested material although active extravasation could have a similar appearance. 4. There is a hyperdense focus in the inferior right liver, likely vascular phenomenon, less likely mass. Reviewed, Interpreted and Dictated by Mat Brady MD Transcribed by Franci Velazco Authenticated and [facility]
[2025-02-25 11:40] LABS: Lipase 66 U/L (23-300)
[2025-02-25] MEDS: SODIUM CHLORIDE 0.9% 10ML SYR (RAD ONLY) 10 ML IV (11:53)
[2025-02-25] MEDS: IOPAMIDOL-370 (76%);100ML BOTTLE 80 ML IV (11:53)
[2025-02-25] MEDS: 0.9 % SODIUM CHLORIDE 50 ML VIAL IV (11:53)
[2025-02-25] MEDS: MORPHINE 4MG/ML SYRINGE 4 MG IV (12:28)
--- NOTE | 2025-02-25 12:32 | PC.NURSE ---
pt to and from [place], rn @ [facility]
--- NOTE | 2025-02-25 12:34 | PC.NURSE ---
Patient attempted to provide stool sample again, states she is still unable to have a bowel movement.
--- NOTE | 2025-02-25 13:47 | PC.NURSE ---
Called Radiology about the Scans for this pt. They were gonna check and call back
== END 2025-02-25 14:20 | disposition home or self-care (01) ==
PROVIDERS: Emergency Provider Emergency Medicine; PCP Nurse Practitioner Family
DX: R10.31 Right lower quadrant pain (principal); R11.10 Vomiting, unspecified; R19.7 Diarrhea, unspecified; F17.210 Nicotine dependence, cigarettes, uncomplicated
CPT/HCPCS: 74174; 80053; 82803; 83605; 83690; 85025; 87040; 96361; 96374; 96375; 99285; J2270; J2405; J7120; Q9967

== ENCOUNTER 2025-07-13 19:20 | Emergency (ER) | payer MEDICARE, SELFPAY ==
--- OUTSIDE RECORDS SUMMARY | 2025-05-11 14:00 | XMS_ITS | Encounter Summary ---
Author Organization [facility] Address [facility] [place] [address] Care Team Providers Care Crusher Loader Operator Name Role Phone Betty Antonio Primary Care Provider [phone] Source Comments This information has been disclosed [...] release of HIV test results or diagnoses. [id number] Reason for Referral * Imaging/Cardiovascular Scan (Routine) - New Request Specialty Diagnoses / Procedures Referred By Umair t Referred To Contact Cardiology Diagnoses Abnormality of aortic valve Procedures Transthoracic Echo (TTE) complete Radha Alvarez MD [address] [facility] Cardiology [facility] [place] [address] Phone: tel: fax: Referral ID Status Reason Start Date Expiration Date V isits Requested Visits Authorized [id number] New Request 05/11/2025 11/07/2025 1 1 Reason for Visit * Reason Comments Follow-up Sometimes experience chest pain 7/10 pressurePatient believes it's from heartburn Encounter Details Date Type Department Care Team (Late st Contact Info) Description 05/11/2025 3:00 PM EDT Office Visit [facility] Card[facility] at [facility] [address] [place] [address] Rahda Alvarez MD [address] [place] [address] Abnormality of aortic valve (Primary Dx); History of endocarditis; Encounter for smoking cessation counseling Social History Tobacco Use Types Packs/Day Years Used Date Smoking Tobacco: Every Day Cigarettes 1 6.9 Started: 2018 Smokeless Tobacco: Never Tobacco Cessation:Ready to Q uit: Not Asked; Counseling Given: Not Answered Alcohol Use Standard Drinks/Week Comments Not Currently 0 (1 standard drink = 0.6 oz pur e alcohol) [facility] Utilities Answer Date Recorded In the past 12 months has th e [employer], gas, oil, or water [employer] threatened to shut off services in your [...] any time in the past 12 m [facility], were you homeless or living in a detention (including now)? No 07/11/2024 Yearly Questionnaire Answer [...] Sign Reading Time Taken Comments Blood Pressure 123/66 05/11/2025 3:47 PM EDT Pulse 88 05/11/2025 3:47 PM EDT Temperature - - Respiratory Rate 18 05/11/2025 3:47 PM EDT Oxygen Saturation 98% 05/11/2025 3:47 PM EDT Inhaled Oxygen Concentration 98% 05/11/2025 3 :47 PM EDT Weight - - Height - - Body Mass Index - - documented in this encounter Patient Instructions * Patient Instructions* Stormy Hutchison RN - 05/11/2025 3:00 PM EDT OFFICE NUMBER: [phone] MEDICATION CHANGES: None Labs: None Next appointment: 9 months with echo same day - Please let us know in 1 month if chest pain is not resolved. documented in this encounter Progress Notes * Radha Alvarez MD - 05/11/2025 3:00 PM EDT Subjective: Patient ID: Caitlyn Mcbride is a 65 y.o. female. 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 Since last visit had the pancreatic surgery, feeling much better. Has gained wt. Still smokes 1 ppd. She is doing well. Has gained some weight. For the last few weeks has been experiencing CP. Thinks this may be related to reflux. 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 She has a past surgical history that includes upper eus (N/A, 01/07/2024); Tonsillectomy; Appendectomy; Cholecystectomy; Hysterectomy; Adenoidectomy; Breast biopsy; Cardiac valuve replacement; section; Bile duct stent placement (02/25/2023); ERCP (12/10/2023); Left Heart Cath (N/A, 04/13/2024); and gbkx-[id number]-amdqkl procedure (N/A, 07/08/2024). Her family history includes Depression in her father; Diabetes in her father; Hypertension in her brother and father. She reports that she has been smoking cigarettes. She started smoking about 6 years ago. She has a 6.7 pack-year smoking history. She has never used smokeless tobacco. She reports that she does not currently use alcohol. She reports current drug use. Drug: Marijuana. ROS: ROS Allergies: Levaquin [levofloxacin] Medications: Encounter Medications[1] Objective: Blood pressure 123/66, pulse 88, resp. rate 18, SpO2 98%. Physical Exam Gen NAD A&Ox3 HEENT no JVD, supple, no scleral icterus CV: RRR + systolic M loud P2 Lungs: CTAB Extr: WWP +2 radial no edema Neuro: no focal deficits Psych: cooperative appropriate mood and affect Lab Review: CBC: Lab Results Component Value Date HGB 9.4 (L) 07/14/2024 HGB 11.9 (L) 07/08/2024 HCT 27.7 (L) 07/14/2024 HCT 36.0 07/08/2024 PLT 273 07/14/2024 WBC 5.7 07/14/2024 MCV 87.7 07/14/2024 MCH 29.7 07/14/2024 RBC 3.16 (L) 07/14/2024 RBC 4.02 04/02/2024 RBC 4.02 04/02/2024 RENAL: Lab Results Component Value Date NA 144 07/14/2024 K 4.0 07/14/2024 CL 113 (H) 07/14/2024 CO2 20 (L) 07/14/2024 BUN 13 07/14/2024 CREATININE 0.58 (L) 07/14/2024 GLUCOSE 96 07/14/2024 PHOS 4.8 (H) 07/14/2024 ALBUMIN 2.8 (L) 07/13/2024 CALCIUM 8.5 (L) 07/14/2024 LIVER: Lab Results Component Value Date AST 38 07/08/2024 ALT 22 07/08/2024 BILITOT 0.3 07/08/2024 ALBUMIN 2.8 (L) 07/13/2024 ALKPHOS 117 07/08/2024 LIPIDS: Lab Results Component Value Date CHOLTOT 184 04/29/2024 LDL 101 04/29/2024 HDL 52 (L) 04/29/2024 TRIG 154 (H) 04/29/2024 Review of Test Results: CT Abdomen With IV contrast Result Date: 03/04/2025 EXAM: CT ABDOMEN WITH IV CONTRAST INDICATION: chronic pancreatitis,s/p rosalinda procedure; Idiopathic chronic pancreatitis (CMS-HCC); Chronic pancreatitis, unspecified pancreatitis type (CMS-HCC); Post-op pain TECHNIQUE: CT of the abdomen was performed after the administration of intravenous contrast in arterial and portal venous phases. Axial images were obtained with coronal and sagittal reconstructions. CONTRAST: 100 mL of IOHEXOL 350 MG IODINE/ML INTRAVENOUS SOLUTION administered intravenously FIELD OF VIEW: 32 cm COMPARISON: CT abdomen pelvis 06/16/2024. FINDINGS: Lungs: Atelectasis and motion artifact in the visualized lung bases. Calcified granulomas. No pleural effusion. Small left pleuroperitoneal hernia. Liver: Small arterial enhancing foci in the right and left hepatic lobes (for example, in segment 2 series 300, image 13, and segment 5 series 301, image 28) which reaches equilibrium on the portal venous phase and may represent small shunts/perfusional in etiology. The main portal vein is patent. Gallbladder and biliary tree: Surgically absent gallbladder. Choledochojejunostomy appears patent with expected pneumobilia (series 601, image 47). Biliary ductal dilatation. The previously seen choledocholithiasis is not well visualized on today's examination. Adrenal gland: No focal nodule seen. Kidneys: Symmetric nephrograms. No hydronephrosis. Bilateral multifocal cortical scarring. Too small to characterize hypodensities bilaterally. Cyst in the inferior pole of the leftkidney. Spleen: Unremarkable. Small splenule. Pancreas: Interval Rosalinda procedure on 07/08/2024. Calcifications near the superior mesenteric vein. Calcifications in the pancreatic tail. Homogeneous enhancement of the remanent pancreas. Loop of jejunum inferior to the pancreas in keeping with pancreaticojejunostomy. No pancreatic ductal dilatation. Bowel: Interval jejunojejunostomy in the left hemiabdomen. Dilated and prominent loops of small bowel without a focal transition point seen in the visualized abdomen. No bowel wall thickening. Appendix not visualized within the [id number]. Lymph nodes: No enlarged lymph nodes by size criteria in the visualized abdomen. Prominent gastrohepatic and periportal lymph nodes are unchanged. Peritoneum/mesentery: Minimal soft tissue thickening in the mesentery is likely postsurgical in etiology. No ascites. No focal fluid collection in the abdomen. Vascular: No aneurysmal dilatation of the abdominal aorta. Soft tissues: Postsurgical changes in the anterior abdominal wall. Bones: Multilevel degenerative changes in the lumbar spine. Unchanged sclerotic focus in the L4 spinous process. No aggressive osseous lesion. IMPRESSION: 1. Interval postsurgical changes of Rosalinda procedure performed 07/08/2024. Homogeneous enhancement of the remnant pancreas. No CT findings to suggest pancreatitis, if clinically warranted correlation with lipase would be useful. 2. Choledochojejunostomy appears patent with expected pneumobilia. The previously seen choledocholithiasis is not well visualized on today's examination. 3. No focal fluid collection. 4. Dilated and prominent loops of small bowel without a focal transition point seen in the visualized abdomen. Report Verified by: Chantelle Hernandez MD at 03/04/2025 8:27 AM EDT Echocardiogram Echocardiogram Stress Test Nuclear Med Cardiac MRI CT Angiogram Assessment: Bioprosthetic AV endocarditis. Medically treated. COPD HTN Chronic pancreatitis/preop surgery Plan: Pt has been having some CP, which may be GI related. Pt follows with her PCP closely at [facility]. She will let her know. If CP persists, despite GERD medications adjustments, then pt will need echo. If resolves, RTC 9 mos with echo on same day (pt has far travel) Pt has a lound P2 supportive of pulm HTN. We discussed in detail smoking cessation options. She wants to try to smoke less. Cont statin. Endocarditis prophylaxis prior to dental work procedures [1] Outpatient Encounter Medications as of 05/11/2025 Medication Sig Dispense Refill atorvastatin (LIPITOR) 40 MG tablet Take 1 tablet (40 mg total) by mouth at bedtime. 30 tablet 0 busPIRone (BUSPAR) 7.5 MG tablet Take 1 tablet (7.5 mg total) by mouth 2 times a day. cholecalciferol, vitamin D3, 250 mcg (10,000 unit) Cap Take 1 tablet by mouth daily. levETIRAcetam (KEPPRA) 500 MG tablet Take 1 tablet (500 mg total) by mouth 2 times a day. 180 tablet 3 magnesium oxide (MAG-OX) 400 mg tablet Take 1 tablet (400 mg total) by mouth in the morning and at bedtime. metoclopramide HCl (REGLAN) 10 MG tablet Take 1 tablet (10 mg total) by mouth every 6 hours. 120 tablet 0 pantoprazole (PROTONIX) 40 MG tablet TAKE 1 TABLET BY MOUTH TWICE DAILY FOR STOMACH PARoxetine (PAXIL) 40 MG tablet Take 1 tablet (40 mg total) by mouth every morning. pregabalin (LYRICA) 300 MG capsule TAKE 1 CAPSULE BY MOUTH TWICE DAILY FOR NEUROPATHIC PAIN 60 capsule 0 PRO FE 180 mg iron Cap Take 1 capsule (180 mg total) by mouth daily. AM temazepam (RESTORIL) 15 mg capsule TAKE 1 CAPSULE BY MOUTH AT BEDTIME NIGHTLY FOR INSOMNIA vitamin E, dl,tocopheryl acet, (VITAMIN E, DL, ACETATE,) 45 mg (100 unit) Cap Take 1 capsule (100 Units total) by mouth daily. hydrOXYzine HCL (ATARAX) 25 MG tablet Take 1 tablet (25 mg total) by mouth 2 times a day. (Patient taking differently: Take 2 tablets (50 mg total) by mouth 3 times a day as needed for Anxiety.) nicotine (NICODERM CQ) 14 mg/[address] 1 patch onto the skin daily. Start after completed with the 21 mg patches. (Patient not taking: Reported on 05/11/2025) 28 patch 0 nicotine (NICODERM CQ) 21 mg/[address] 1 patch onto the skin daily. (Patient not taking: Reportedon 05/11/2025) 28 patch 0 nicotine polacrilex (COMMIT) [address] 4 mg inside cheek every hour as needed. (Patient not taking: Reported on 05/11/2025) 100 lozenge 0 senna-docusate (SENNA-S) 8.6-50 mg per tablet Take 1 tablet by mouth 2 times a day. (Patient not taking: Reported on 05/11/2025) 30 tablet 0 [DISCONTINUED] pregabalin (LYRICA) 300 MG capsule Take 1 capsule (300 mg total) by mouth 2 times a day for 30 days. Indications: neuropathic pain 60 capsule 0 No facility-administered encounter medications on file as of 05/11/2025. documented in this encounter Plan of Treatment Scheduled Orders Name Type Priority Associated Diagnoses Order Schedule Transthoracic Echo (TTE) complete Echocardiography Routine Abnormality of aortic valve 1 Occurrences starting 05/11/2025 until 05/11/2026 documented as of this encounter Visit Diagnoses Diagnosis Abnormality of aortic valve- Primary History of endocarditis Encounter for smoking cessation counseling documented in this encounter Care Teams Crusher Loader Operator Relationship Specialty Start Date End Date Betty Antonio [address] [place] [address] FREDIS White [address] PCP - General 12/14/23 documented as of this encounter
[2025-07-13] VITALS (8 sets, daily range): BP systolic 129–147; BP diastolic 59–78; PULSE 60–74; RESP 18–20; TEMP 36.8; O2SAT 95–98; BMI 21.9
--- NOTE | 2025-07-13 19:30 | PC.NURSE ---
Report received from Martha. Pt awake alert and oriented Skin pink warm and dry Resp full and easy Speech clear and appropriatePt assisted to room in wheelchair
--- OUTSIDE RECORDS SUMMARY | 2025-07-13 19:38 | XMS_ITS | Encounter Summary ---
Author Organization [place] [address] Care Team Providers Care Electrical Experimental Mechanic Name Role Phone Unavailable Primary Care Provider Unavailabl e Encounter Details Date Type Department Care Team (Late st Contact Info) Description 03/02/2024 Lab Requisition [facility] [address] [place] [id number] Madison Metcalf MD [address] [place] [address] [id number] Acute and subacute infective endocarditis Social History [...] ORDERABLES Final Resu lt Performing Organization Address [facility] Co de Phone Number [facility] [address] [place] [address] * EXTRA GOLD SST (03/02/2024 10:30 AM EDT) Blood VENOUS BLOOD / Unknown 03/02/2024 10:30 AM EDT 03/02/2024 7:12 PM EDT us Madison Metcalf MD CHEMISTRY ORDERABLES Final Resul t Performing Organization Address [facility] de Phone Number [facility] [address] [place] [address] * (ABNORMAL) C-REACTIVE PROTEIN (03/02/2024 10:30 AM EDT) CRP 6.89(H) <=5.00 mg/L 03/02/2024 8:25 PM EDT [facility] Blood VENOUS BLOOD / Unknown 03/02/2024 10:30 AM EDT 03/02/2024 7:12 PM EDT Result Lashell Metcalf MD CHEMISTRY ORDERABLES Final Resul t Performing Organization Address [facility] de Phone Number [facility] Your Office Agent [address] [place] [address] * (ABNORMAL) SEDIMENTATION RATE AUTOMATED (03/02/2024 10:30 AM EDT) Sed Rate 39(H) 0 - 30 mm/hr 03/02/2024 7:58 PM EDT [facility] Blood VENOUS BLOOD / Unknown 03/02/2024 10:30 AM EDT 03/02/2024 7:12 PM EDT us Madison Metcalf MD HEMATOLOGY ORDERABLES Final Resu lt [facility] [address] [facility] , [place] [address] * (ABNORMAL) COMPREHENSIVE METABOLIC PANEL (03/02/2024 10:30 [...] mL/min/1.7 3 m2 03/02/2024 8:25 PM EDT [facility] Comment:Estimated GFR was ca lculated using the CKD-EPIcr (2020) equation refit without race. The equation is recommended by the National Kidney Foundation - [place] Society of Nephrology Task Force. Blood VENOUS BLOOD / Unknown 03/02/2024 10:30 AM EDT 03/02/2024 7:12 PM EDT us Madison Metcalf MD CHEMISTRY ORDERABLES Final Resul t [facility] [address] , [place] [address] [facility] [address] [place] [address] * (ABNORMAL) CBC WITH DIFF [...] 03/02/2024 7:58 PM EDT [facility] MPV 10.8 8.8 - 12.5 fL 03/02/2024 7:58 PM EDT [facility] Neut Percent 52.7 % 03/02/2024 7:58 PM EDT [facility] Comment:Neutrophils equals s egs plus bands Imm Gran% 0.6 % 03/02/2024 7:58 PM EDT [facility] Comment:Automated count of m etamyelocytes, myelocytes and promyelocytes. Lymph Percent 30.8 % 03/02/2024 7:58 PM EDT [facility] Dolores Percent 5.8 % 03/02/2024 7:58 PM EDT [facility] Eos Percent 8.6 % 03/02/2024 7:58 PM EDT [facility] Baso Percent 1.5 % 03/02/2024 7:58 PM EDT [facility] Neut # 3.8 1.6 - 6.1 x10(3)/[facility] 03/02/2024 7:58 PM EDT [facility] Comment:Neutrophils equals s egs plus bands IMMGRAN# 0.0 0.0 - 0.1 x10(3)/[facility] 03/02/2024 7:58 PM EDT [facility] Comment:Automated count of m etamyelocytes, myelocytes and promyelocytes. An absolute IG <0.1 is reported as 0.0. Lymph # 2.2 1.2 - 3.9 x10(3)/[facility] 03/02/2024 7:58 PM EDT [facility] Dolores # 0.4 0.3 - 0.9 x10(3)/[facility] 03/02/2024 7:58 PM EDT [facility] Eos# 0.6(H) 0.0 - 0.5 x10(3)/[facility] 03/02/2024 7:58 PM EDT [facility] Baso # 0.1 0.0 - 0.1 x10(3)/[facility] 03/02/2024 7:58 PM EDT [facility] Blood VENOUS BLOOD / Unknown 03/02/2024 10:30 AM EDT 03/02/2024 7:12 PM EDT us Madison Metcalf MD HEMATOLOGY ORDERABLES Final Resu lt [facility] [address] , [address] [place] [id number] documented in this encounter Visit Diagnoses Diagnosis 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
--- OUTSIDE RECORDS SUMMARY | 2025-07-13 19:38 | XMS_ITS | Clinical Summary ---
Author Organization [facility] Address [address] [place] [address] Care Team Providers Care Senior Php Software Developer Name Role Phone AntonioBetty zamorano [place] FRANK Primary Care Provider [phone] Allergies Active Allergy Reactions Criticality Noted Date [...] time each day. Active cholecalciferol 250 MCG (72760 UT) capsule Take 5,000 Units by mouth 1 (one) time each day. Active alpha tocopherol (Vitamin E) 100 units capsule Take 1 capsule (100 Units) by mouth 1 (one) time each day. 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 No 09/27/2023 CAGE ASSESSMENT Answer [...] drink first t luzmaria in the morning (EYE-TIRE MOLDER) to steady your nerves or to get rid of a hangover? 0 09/27/2023 CAGE Questionnaire Score 0 024 Utilities Answer Date Recorded In the past 12 months has th e electric, gas, oil, or water company [...] 02/15/2008 [facility]-Zoster Vaccines (1 of 2) 02/15/2008 [facility]-Depression Screening 11/27/2024 11/28/2023 [id number] Vaccine (3 - season) 2025 09/05/2021, 01/10/2021 [facility]-Influenza Vaccine (#1) 05/03/202509/05, 09/05/2021, 06/06/2020, Additional history exists [facility]Y-RSV Vaccine: [...] this topic Medical Devices Implanted Type Area Supervisor Toy Assembly Device Identifier Shelf Expiration Date Model / Serial / Lot Stent Biliary 2.3 X 50mm - [id number] Implanted:Qty: 1 on 02/25/2023 by Flavio Noble MD at [facility]-[id number] 10/04/2025 [id number] / / [id number] Stent Biliary 2.3 X 50mm - [id number] Implanted:Qty: 1 on 02/25/2023 by Flavio Noble MD at [facility]-[id number] 11/12/2025 [id number] / / [id number] Procedures Procedure Name Priority Date/Time Associated Diagnosis [...] Follow up with referring provider Discussed with Ms. Mcbride Indication Abdominal pain Medications See anesthesia record for anesthesia administered medications. Staff Staff Role Fani Sommer MD Proceduralist Helio Nelson CRNA CRNA Hardin, Bryan D, MD Anesthesiologist Stephanie, Noa Duke RN Endo Nurse Lolly Johnson MD Proceduralist Celso Zimmerman Endo Stamp Machine Servicer Preprocedure A history and physical has been [...] of bowel preparation was evaluated using the [place] Bowel Preparation Scale with scores of: right [...] Antibody Negative Negative 04/01/2023 4:45 PM EDT [facility] Blood Venous blood specimen / Unknown Venipuncture / Unknown 04/01/2023 3:49 PM EDT 04/01/2023 4:03 PM EDT Juan Jose Novak MD LAB BLOOD ORDERABLES Final Resul t Performing Organization Address City/State/[facility] Co de Phone Number [facility] [address] [place] [address] * Hemoglobin A1c (01/15/2023 5:04 PM EDT) [...] Adults <6.0% Children and Adolescents <7.5% Source: [place] [employer]. Standards of medical care in diabetes,2017. Diabetes Care.2017:40 (suppl 1):S1-S135. HbA1c assay performed by an ion-exchange chromatography method that is certified traceable to the DCCT. us Albert SANCHEZ LAB BLOOD ORDERABLES Final Re sult Performing Organization Address [facility] Co de Phone Number [facility] [address] [place] [address] from Last 3 Months or Most Recently Relevant to Health Maintenance Insurance [facility] MEDICARE Advance Directives * Full Code [...] Patient has decision-making capacity? Yes Care Teams Senior Php Software Developer Relationship Specialty Start Date End Date Betty Antonio APRN [address] [place] [address] PCP - General 05/31/21
--- OUTSIDE RECORDS SUMMARY | 2025-07-13 19:38 | XMS_ITS | Clinical Summary ---
Author Organization [employer] ([place], [place], [place], [place], [place]) Address [address] [place] [address] Care Team Providers Care Photonics Engineer Name Role Phone Betty Antonio RADIO OPERATOR GROUND Primary Care Provider Allergies Active Allergy Reactions [...] drink = 0.6 oz pur e alcohol) Food Insecurity Answer Date Recorded Food run [...] Date Gordo rded Speak language other than Urdu at home Not on file 10/19/2023 Want help with school or training Not on file 10/19/2023 Substance Use Answer Date Recorded Used [...] series) 2018 Medicare Initial AWV [id number] 04/03/2024 Falls Risk Screening 09/02/2024 Tobacco Cessation Counseling and Screening (12+) 10/19/2024 10/19/2023 COVID-19 VACCINE (3 - 2024- season) 05/03/202512/2021, 01/10/2021 Influenza Vaccine (#1) 2025 09/05/2021, 2015 Additional Health Concerns Infection Onset Date Last Indicated C. difficile 10/19/2023 10/19/2023 Insurance MEDICARE PPO Advance Directives For more information, please contact: [phone] * Full Code (Latest Code Status on File) Date Activated Date Inactivated Comments 10/19/2023 6:17 PM 10/26/2023 4:31 PM Care Teams Photonics Engineer Relationship Specialty Start Date End Date Betty Antonio, RADIO OPERATOR GROUND [address] [address] PCP - General Nurse Practitioner 10/19/23
--- OUTSIDE RECORDS SUMMARY | 2025-07-13 19:38 | XMS_ITS | Encounter Summary ---
Author Organization Healthcare Address [address] [place] [address] Care Team Providers Care Economic Development Specialist Name Role Phone AntonioVickishanna Coleman APRN Primary Care Provider [phone] Reason for Visit * Reason Comments Med Refill Encounter Details Date Type Department Care Team (Late st Contact Info) Description 08/07/2023 [facility]ill [facility] [address], [address] [place] [address] Albert Fierro PA [address] [place] [address] Social History Tobacco Use Types [...] drink first t luzmaria in the morning (EYE-TRUCK CAR AND BUS CLEANER) to steady your nerves or to get [...] 30 day supply with 2 refill(s) to [facility]. documented in this encounter Plan [...] documented as of this encounter Care Teams Economic Development Specialist Relationship Specialty Start Date End Date Betty Antonio APRN [address] [place] [address] PCP - General 05/31/21 documented as of this encounter
--- OUTSIDE RECORDS SUMMARY | 2025-07-13 19:38 | XMS_ITS | Encounter Summary ---
Author Organization [facility] Address [facility] [place] [address] Care Team Providers Care Geothermal Sheet Metal Worker Name Role Phone Betty Antonio Primary Care Provider Source Comments This information has been disclosed [...] release of HIV test results or diagnoses. [id number] Health Encounter Details Date Type Department Care Team (Late st Contact Info) Description 04/10/2024 Ophth Exam [facility] Ophthalmology at [address] [place] [phone] Elan Cates MD [address] [place] [address] Social History Tobacco Use Types Packs/Day Years Used Date Smoking Tobacco: Every Day Cigarettes 1 6.9 Started: 2019 Smokeless Tobacco: Never Alcohol Use Standard Drinks/Week Comments Not Currently 0 (1 standard drink = 0.6 oz pur e alcohol) [facility] Utilities Answer Date Recorded In the past [...] any time in the past 12 m [facility], were you homeless or living in a usp (including now)? No 04/04/2024 Yearly Questionnaire Answer [...] on filedocumented in this encounter Care Teams Geothermal Sheet Metal Worker Relationship Specialty Start Date End Date Betty Antonio [facility] [place] [address] PCP - General 12/14/23 documented as of this encounter
--- OUTSIDE RECORDS SUMMARY | 2025-07-13 19:38 | XMS_ITS | Clinical Summary ---
Author Organization [facility] Address [address] [place] [address] Phone Care Team Providers Care Casino Banker Name Role Phone Unavailable Primary Care Provider [...] Screening 02/15/1976 DTaP/TDaP/Td (1 - Tdap) 1977 Cologuard 2003 Colon Cancer Screening 2003 Colonoscopy 2003 FIT 2003 Sigmoidoscopy 2003 Virtual Colonography 2003 Pneumococcal Vaccine 50+ (1 of 1 - PCV) 02/15/2008 Zoster (1 of 2) 02/15/2008 Bone Density Screening 2023 COVID-19 Vaccine (2024-2 6 season) 2025 Influenza Vaccine (#1) 2025 Hepatitis B Vaccine Aged Out No longe r eligible based on patient's age to complete this topic Meningococcal B Vaccine Aged Out No l onger eligible based on patient's age to complete this topic
--- OUTSIDE RECORDS SUMMARY | 2025-07-13 19:38 | XMS_ITS | Encounter Summary ---
Author Organization [facility] Address [facility] [place] [address] Care Team Providers Care Senior Product Integrity Engineer Name Role Phone Betty Antonio Primary Care Provider [phone] Source Comments This information has been disclosed [...] release of HIV test results or diagnoses. [id number] Health Reason for Visit * Reason Comments Medication Refill Encounter Details Date Type Department Care Team (Late st Contact Info) Description 04/28/2025 Refill [facility] Surgical Oncology at [facility] [address] [place] [phone] [place] [address] [place] [address]. [place] [phone] Idiopathic chronic pancreatitis ([facility]) Social History Tobacco Use Types Packs/Day Years Used Date Smoking Tobacco: Every Day Cigarettes 1 6.9 Started: 2019 Smokeless Tobacco: Never Alcohol Use Standard Drinks/Week Comments Not Currently 0 (1 standard drink = 0.6 oz pur e alcohol) [facility] Utilities Answer Date Recorded In the past [...] time in the past 12 m [facility], were you homeless or living in a usp (including now)? No 07/11/2024 Yearly Questionnaire Answer [...] as of this encounter Visit Diagnoses Diagnosis Idiopathic chronic pancreatitis (CMS-HCC) documented in this encounter Care Teams Senior Product Integrity Engineer Relationship Specialty Start Date End Date Betty Antonio [address] [place] [address] PCP - General 12/14/23 documented as of this encounter
--- OUTSIDE RECORDS SUMMARY | 2025-07-13 19:38 | XMS_ITS | Clinical Summary ---
Author Organization [facility] Address [address] [facility] [address] [place] [address] Phone Care Team Providers Care Staple Laster Name Role Phone Unavailable Unavailable Conditions or Problems No information available. Medications No information available. Medications Administered No information available. Allergies, Adverse Reactions, Alerts No information available. Results No information available. Plan of Care No information available. Procedures No information available. Vital Signs No information available. Immunizations No information available. Advance Directives No information available.
--- OUTSIDE RECORDS SUMMARY | 2025-07-13 19:38 | XMS_ITS | Clinical Summary ---
Author Organization [facility] Address [address] [place] [address] Care Team Providers Care Dean Name Role Phone Leila Townsend MD Primary Care Provider + [phone] Social History Tobacco Use Types Packs/Day Years Used Date Smoking Tobacco: Never Assessed Comments Unknown Sex and Gender Information Value Date Recorded Sex Assigned at Not on file Legal Sex Female 3:11 PM EDT Gender Identity Not on file Sexual Orientation Not on file Plan of Treatment Not on file Insurance ANTHEM Care Teams Dean Relationship Specialty Start Date End Date Leila Townsend MD [address] [facility] PCP - General Family Medicine 07/12/14
--- OUTSIDE RECORDS SUMMARY | 2025-07-13 19:38 | XMS_ITS | Encounter Summary ---
Author Organization [facility] Address [facility] [place] [address] Care Team Providers Care Game Attendant Name Role Phone Betty Antonio Primary Care Provider [phone] Source Comments This information has been disclosed [...] release of HIV test results or diagnoses. [id number] Health Reason for Visit * Reason Comments Medication Refill Encounter Details Date Type Department Care Team (Late st Contact Info) Description 06/01/2025 Refill [facility] Surgical Oncology at [facility] [address] [place] [phone] Ilia Wall MD [address] [place] [address]. [place] [phone] Idiopathic chronic pancreatitis ([facility]) Social History Tobacco Use Types Packs/Day Years Used Date Smoking Tobacco: Every Day Cigarettes 1 6.9 Started: 2019 Smokeless Tobacco: Never Alcohol Use Standard Drinks/Week Comments Not Currently 0 (1 standard drink = 0.6 oz pur e alcohol) [facility] Utilities Answer Date Recorded In the [...] in the past 12 m [facility], were you homeless or living in a nursing home (including now)? No 07/11/2024 Yearly Questionnaire Answer [...] (CMS-HCC) documented in this encounter Care Teams Game Attendant Relationship Specialty Start Date End Date Betty Antonio [address] [place] [address] PCP - General 12/14/23 documented as of this encounter
--- OUTSIDE RECORDS SUMMARY | 2025-07-13 19:38 | XMS_ITS | Encounter Summary ---
Author Organization [facility] Address [address] [place] [address] Care Team Providers Care Set Up Mechanic Stamping Machines Name Role Phone Betty Antonio Primary Care Provider [phone] Source Comments This information has been disclosed [...] release of HIV test results or diagnoses. [id number] Health Encounter Details Date Type Department Care Team (Late st Contact Info) Description 02/26/2024 Ophth Exam [facility] Ophthalmology at [address] [place] [phone] Raul Raymond MD Social History Tobacco Use Types Packs/Day Years Used Date Smoking Tobacco: Every Day Cigarettes 1 6.9 Started: 2019 Smokeless Tobacco: Never Alcohol Use Standard Drinks/Week Comments Not Currently 0 (1 standard drink = 0.6 oz pur e alcohol) [facility] Utilities Answer Date Recorded In the [...] any time in the past 12 m [facility], were you homeless or living in a retirement (including now)? No 02/22/2024 Comments No Sex [...] on filedocumented in this encounter Care Teams Set Up Mechanic Stamping Machines Relationship Specialty Start Date End Date Betty Antonio [facility] [address] [place] [address] PCP - General 12/14/23 documented as of this encounter
--- OUTSIDE RECORDS SUMMARY | 2025-07-13 19:39 | XMS_ITS | Clinical Summary ---
Author Organization [facility] Address [address] [place] [address] Care Team Providers Care Graphic Art Sales Representative Name Role Phone Betty Antonio Primary Care Provider [phone] Source Comments This information has been disclosed [...] therelease of HIV test results or diagnoses. [id number] Allergies Active Allergy Reactions Criticality Noted [...] the skin daily. 28 patch 4 Active Additional Information Patient not taking.Reported on 05/11/2025 nicotine polacrilex (COMMIT) [address] 4 mg inside cheek every hour as needed. 100 lozenge 4 Active Additional Information Patient not taking.Reported on 05/11/2025 nicotine (NICODERM CQ) 14 mg/[address] 1 patch onto the skin daily. Start after completed with the 21 mg patches. 28 patch 4 Active Additional Information Patient not taking.Reported on 05/11/2025 atorvastatin (LIPITOR) 40 MG tablet Take 1 tablet (40 mg total) by mouth at bedtime. 30 tablet 04/21/2024 4:28 PM EDT Active senna-docusate (SENNA-S) 8.6-50 mg per tablet Take 1 tablet by mouth 2 times a day. 30 tablet 04/21/2024 4:28 PM EDT 4 Active Additional Information Patient not taking.Reported on 05/11/2025 cholecalciferol, vitamin D3, 250 mcg (10,000 unit) Cap Take 1 tablet by mouth daily. 4 Active vitamin E, dl,tocopheryl acet, (VITAMIN E, DL, ACETATE,) 45 mg (100 unit) Cap Take 1 capsule (100 Units total) by mouth daily. 4 Active busPIRone (BUSPAR) 7.5 MG tablet Take 1 tablet (7.5 mg total) by mouth 2 times a day. Active hydrOXYzine HCL (ATARAX) 25 MG tablet Take 1 tablet (25 mg total) by mouth 2 times a day. Active levETIRAcetam (KEPPRA) 500 MG tabletIndication s:Abnormal EEG Take 1 tablet (500 mg total) by mouth 2 times a day. 180 tablet 3 4 Active metoclopramide HCl (REGLAN) 10 MG tablet Take 1 tablet (10 mg total) by mouth every 6 hours. 120 tablet 07/14/2024 5:44 PM EST 4 Active pregabalin (LYRICA) 300 MG capsuleIndicatio ns:Idiopathic chronic pancreatitis (CMS-HCC) TAKE 1 CAPSULE BY MOUTH TWICE DAILY FOR NEUROPATHIC PAIN 60 capsule 5 025 Active Problems Patient Care Coordination No te Formatting of this note migh t be different from the original. [employer] 4238.Julio Winston MSN RN. she/hers. [facility] Infectious Diseases -- OPAT (Outpatient Parenteral Antimicrobial Therapy). [phone]. Problem Noted Date Diagnosed Date Tinnitus of both ears 02/02/2025 Chronic pancreatitis 06/16/2024 Fungemia 04/06/2024 Subacute bacterial endocarditis 02/26/2024 Encounters Date Type Department Care Team Description 06/01/2025 Refill [facility] Surgical Oncology at [address] [phone] Ilia Wall MD Idiopathic chronic pancreatitis ([facility]) 05/11/2025 3:00 PM EDT Office Visit [facility] Cardiology at [facility] [address] [facility] [address] [place] [address] Radha Alvarez MD Abnormality of aortic valve (Primary Dx); History of endocarditis; Encounter for smoking cessation counseling 05/11/2025 Telephone [facility] Cardiology at [facility] [address] [facility] [address] [place] [address] Radha Alvarez MD 04/28/2025 Refill [facility] Surgical Oncology at [address] [address] Ilia Wall MD Idiopathic chronic pancreatitis ([facility]) from Last 3 Months Family History Medical [...] drink = 0.6 oz pur e alcohol) [facility] Utilities Answer Date Recorded In the [...] time in the past 12 m [facility], were you homeless or living in a [...] Pulse 88 05/11/2025 3:47 PM EDT Temperature 36.4 C (97.6 F) 03/25/2025 11:40 AM EDT Respiratory Rate 18 05/11/2025 3:47 PM EDT Oxygen Saturation 98% 05/11/2025 3:47 PM EDT Inhaled Oxygen Concentration 98% 05/11/2025 3 :47 PM EDT Weight 54.4 kg (120 lb) 03/25/2025 11:40 AM EDT Height 157.5 cm (5' 2 ) 03/25/2025 11:40 AM EDT Body Mass Index 21.95 03/25/2025 11:40 AM EDT Plan of Treatment Health Maintenance Due Date Last Done Comments ASCVD Assessment 1960 Abnormal Colonoscopy Follow Up 1958 Tobacco Cessation Readiness 1958 Immunization: Pneumococcal ( 1 of 2 - PCV) 1977 Immunization: DTaP/Tdap/Td ( 1 - Tdap) 11/08/1996 11/07/1996 Mammogram (MyChart) 1998 Cologuard (FIT-DNA) 2003 Colonoscopy 2003 Colorectal Cancer Screening (MyChart) 2003 Stool Testing (gFOBT) 2003 Immunization: RSV (Adult) (1 - Risk 50-74 years 1-dose series) 02/15/2008 Immunization: Zoster (1 of 2) 02/15/2008 Osteoporosis Screening (DXA Scan) 02/15/2008 Immunization: COVID-19 ( season) 2025 09/05/2021, 01/10/2021 Immunization: Influenza (MyC katz) (#1) 2025 09/05/2021, 06/06/2020, 09/12/2015 Depression Screening 10/01/2025 10/01/2024, 07/23/2024, 05/21/2024, Additional history exists Hepatitis C Screening (MyChart) Completed 4 Procedures Procedure Name Priority Date/Time Associated Diagnosis Comments ED HCV AB REFLEX TO HCV QUANT Routine 12/14/2023 3:11 PM EDT from Last 3 Months or Most Recently Relevant to Health Maintenance Results * ED HCV Ab Reflex To HCV Quant (12/14/2023 3:11 PM EDT) HCV Ab Nonreactive Nonreactive 12/14/2023 4:24 PM EDT [facility] Comment:Health Department no tified in accordance with reportable infectious disease guidelines. HCVAB Number 0.04 0.00 - 0.79 S/CO 12/14/2023 4:24 PM EDT [facility] Serum 12/14/2023 3:11 PM EDT 12/14/2023 3:24 PM EDT us Olivia Estevez MD LAB BLOOD ORDERABLES Final Resul t [facility] [address] from Last 3 Months or Most Recently Relevant to Health Maintenance Insurance [employer] CHOICE O MEDICARE Advance Directives For more information, please contact: [phone] * Full Code (Latest Code Status on [...] 6:53 PM 02/27/2024 12:09 AM Care Teams Graphic Art Sales Representative Relationship Specialty Start Date End Date Betty Antonio [address] [place] [address] PCP - General 12/14/23
--- OUTSIDE RECORDS SUMMARY | 2025-07-13 19:39 | XMS_ITS | Referral Summary ---
Author Organization [employer] ([place], [place], [place], [place], [place]) Address [address] [place] [address] Care Team Providers Care Floorleader Name Role Phone Betty Antonio WELL BLOWER Primary Care Provider Allergies Active Allergy Reactions [...] Date Gordo rded Speak language other than Turkmen at home Not on file 10/19/2023 Want [...] Advance Directives For more information, please contact: [phone] * Full Code (Latest Code Status on File) Date Activated Date Inactivated Comments 10/19/2023 6:17 PM 10/26/2023 4:31 PM Care Teams Floorleader Relationship Specialty Start Date End Date Betty Antonio, MONIKA [address] [address] PCP - General Nurse Practitioner 10/19/23
--- OUTSIDE RECORDS SUMMARY | 2025-07-13 19:39 | XMS_ITS | Encounter Summary ---
Author Organization Healthcare Address [address] [place] [address] Care Team Providers Care Six Pack Loader Operator Name Role Phone AntonioBetty zamorano [place] FRANK Primary Care Provider [phone] Encounter Details Date Type Department Care Team (Late st Contact Info) Description 04/04/[address] [facility] Internal Medicine [address] [place] [address] Luz Jaime, GEOLOGICAL DRAFTER [address] [place] [address] Social History Tobacco Use Types [...] drink first t luzmaria in the morning (EYE-EXTRUSION PRESS SUPERVISOR) to steady your nerves or to get [...] documented as of this encounter Care Teams Six Pack Loader Operator Relationship Specialty Start Date End Date Betty Antonio APRN [address] [place] [address] PCP - General 05/31/21 documented as of this encounter
--- OUTSIDE RECORDS SUMMARY | 2025-07-13 19:39 | XMS_ITS | Encounter Summary ---
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 Monthly or less 04/12/2022 Q2: How many drinks containi ng alcohol do you have on a typical day when you are drinking? 1 or 2 04/12/2022 Q3: How often do you have si x or more drinks on one occasion? Less than monthly 04/12/2022 Abuse Screen Answer Date Recorded Feels Unsafe at Home or Work/School no 07/30/2022 Feels Threatened by Someone no 07/04 Does Anyone Try to Keep You From Having Contact with Others or Doing Things Outside Your Home? 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 Patient reports congestion, but has tested COVID negative twice. Patient exposed less than 5 days ago. In the process of discussing with Dr. Beverley Johnson. Junaa Perez RN CIC. 04/13/22 Discussed with Corrie Gregorio RN Director Dr. Johnson advised to test patient again this am and she was COVID negative. He stated COVID precautions are not necessary for the OR today with the recent negative test. However, because of her exposure, post op she will need to be in airborne and contact isolation for 5 full days after exposure on 04/11. Isolation can be discontinued on 04/17. Juana Perez Infection Prevention 04/13/22 Discussed with Tari in the OR. 04/13/2022 04/13/2022 07/30/2022 3:[address] documented as of this encounter Care Teams Reservoir Engineer Relationship Specialty Start Date End Date Betty Antonio APRN PCP - General Internal Medicine 04/14/22 documented as of this encounter
--- OUTSIDE RECORDS SUMMARY | 2025-07-13 19:39 | XMS_ITS | Clinical Summary ---
Author Organization [facility] Address [address] [place] [address] Care Team Providers Care Biomedical Engineering Technician Name Role Phone PacoBetty MONIKA Primary Care Provider + [phone] Allergies Active Allergy Reactions Criticality Noted Date Comments Levofloxacin Swelling 04/11/2022 Rashes and seizures as well Medications estradiol (ESTRACE) 0.5 MG tablet Take 0.5 tablets by mouth Daily. Active pantoprazole (PROTONIX) 40 MG EC tablet Take 1 tablet by mouth Daily. Active PARoxetine (PAXIL) 20 MG tablet Take 1 tablet by mouth Daily. Active temazepam (RESTORIL) 15 MG capsule Take 1 capsule by mouth Every Night. Active acetaminophen (TYLENOL) 325 MG tablet Take 2 tablets by mouth Every 4 (Four) Hours As Needed for Mild Pain . 2 Active lidocaine (LIDODERM) 5 % 2 Active traMADol (ULTRAM) 50 MG tabletIndications:C losed fracture of neck of left femur with nonunion, subsequent encounter Take 1 tablet by mouth Every 6 (Six) Hours As Needed for Severe Pain. 30 tablet 3 Active pregabalin (LYRICA) 75 MG capsule 3 Active sucralfate (CARAFATE) 1 g tablet 3 Active ondansetron ODT (ZOFRAN-ODT) 4 MG disintegrating tablet 3 Active Creon 78578-77455 units capsule delayed-release particles capsule Take 1 capsule by mouth 3 (Three) Times a Day With Meals. 3 Active Trelegy Ellipta 100-62.5-25 MCG/ACT inhaler 3 Active albuterol sulfate HFA 108 (90 Base) MCG/ACT inhaler 3 Active Active Problems Problem Noted Date Diagnosed Date Closed fracture of left hip, initial encounter 0 04/11/2022 Mood disorder 04/11/2022 Bipolar disorder 04/11/2022 GERD (gastroesophageal reflux disease) 2 RLS (restless legs syndrome) 04/11/2022 Tobacco use 04/11/2022 Marijuana use 04/11/2022 Immunizations Immunization Administration Dates Next Due COVID-19 (MODERNA) Monovalent Original Booster 0 09/05/2021 Flu Vaccine Quad PF >36MO 09/05/2021 Fluzone (or Fluarix & Flulaval for VFC) >6mos ,09/12/2015 Td (TDVAX) 11/07/1996 Family History Medical History Relation Name Comments COPD Mother Relation Name Status Comments Father Alive Mother Social History Tobacco Use Types Packs/Day Years [...] monthly 04/12/2022 Abuse Screen Answer Date Recorded Unsafe at Home or Work/School Not on file Feels Threatened by Someone? Not on file Does Anyone Keep You from Co ntacting Others or Doint Things Outside the Home? Not on file 08/16/2023 Physical Sign of Abuse Present Not on file 1 10/17/2022 Housing Stability Answer Date Recorded Current Living Arrangements Not on file 05/2023 Potentially Unsafe Housing Conditions Not on blaire e 06/10/2023 Family and Community Support Answer Gabriel e Recorded Help with Day-to-Day Activities Not on file 06/10/2023 Lonely or Isolated Not on file 06/10/2023 Employment Answer Date Recorded Do you want help finding or keeping work or a moreno b? Not on file 06/10/2023 Disabilities Answer Date Recorded Concentrating, Remembering, or Making Decisions Difficulty Not on file 06/10/2023 Doing Errands Independently Difficulty Not on fi le 06/10/2023 Education Answer Date Recorded Help with school or training? Not on file Preferred Language Not on file 06/10/2023 Comments No Sex and Gender Information Value Date Recorded Sex Assigned at Not on file Legal Sex Female 10:03 AM EDT Gender Identity Not on file Sexual Orientation Not on file Last Filed Vital Signs Vital Sign Reading Time Taken Comments Blood Pressure 104/68 04/16/2023 11:02 AM EDT Pulse 73 07/30/2022 12:55 PM EST Temperature 37.1 C (98.7 F) 07/30/2022 12:55 PM EST Respiratory Rate 20 07/30/2022 12:55 PM EST Oxygen Saturation 97% 07/30/2022 12:55 PM EST Inhaled Oxygen Concentration - - Weight 39.6 kg (87 lb 3.2 oz) 04/16/2023 11:02 A M EDT Height 154.9 cm (5' 1 ) 04/16/2023 11:02 AM EDT Body Mass Index 16.48 04/16/2023 11:02 AM EDT Plan of Treatment Health Maintenance Due Date Last Done Comments DXA SCAN 1958 Pneumococcal Vaccine 50+ (1 of 2 - PCV) 1977 MAMMOGRAM 1998 COLOGUARD 2003 COLON CANCER SCREENING 5 YEA R SIGMOIDOSCOPY 2003 [address] COLONOGRAPHY 2003 FECAL OCCULT BLOOD TEST 2003 FIT Testing (1 year) 2003 TDAP/TD VACCINES (2 - Tdap) 11/07/2006 11/07/1996 ZOSTER VACCINE (1 of 2) 02/15/2008 COVID-19 Vaccine (2 - Jansse n risk series) 10/03/2021 09/05/2021, 01/10/2021 ANNUAL WELLNESS VISIT 04/26/2022 INFLUENZA VACCINE 04/02/2025 09/05/2021, , 09/12/2015 COLONOSCOPY 05/09/2033 05/09/2023 COLORECTAL CANCER SCREENING 05/09/2033 HEMOGLOBIN A1C Discontinued 01/15/2023, 01/15/2023 HEPATITIS C SCREENING Completed 04/01/2023 Medical Devices Implanted Type Area Chlorinator Operator Device Identifier Shelf Expiration Date Model / Serial / Lot Scrw Hernandez Sd/St [id number] 6.5x85mm - [id number] Implanted:Qty : 2 on 04/13/2022 by Juan Bonds MD at [facility] Implant Left: Hip [employer] [id number] / / Scrw Hernandez Sd/St [id number] 6.5x80mm - [id number] Implanted:Qty : 1 on 04/13/2022 by Juan Bonds MD at [facility] Implant Left: Hip [employer] [id number] / / Insurance [employer] MEDICARE ADVANTAGE MEDICARE A & B Advance Directives * CPR (Attempt to Resuscitate) (Latest Code Status on File) Date Activated Date Inactivated Comments 04/12/2022 12:12 AM 04/14/2022 7:56 PM Question Answer Comments Code Status (Patient has no pulse and is not breathing): CPR (Attempt to Resuscitate) Medical Interventions (Patie nt has pulse or is breathing): Full Support Level Of Support Discussed With: Patient Care Teams Biomedical Engineering Technician Relationship Specialty Start Date End Date Betty Antonio APRN PCP - General Internal Medicine 04/14/22
--- NOTE | 2025-07-13 19:55 | CT_ITS ---
PROCEDURE INFORMATION: Exam: CT Head Without Contrast Exam date and time: 07/13/2025 8:37 PM Age: 65 years old Clinical indication: Injury or trauma; Fall; Other: Pain; Additional info: Fall, head trauma TECHNIQUE: Imaging protocol: Computed tomography of the head without contrast. Radiation optimization: All CT scans at this facility use at least one of these dose optimization techniques: automated exposure control; mA and/or kV adjustment per patient size (includes targeted exams where dose is matched to clinical indication); or iterative reconstruction. COMPARISON: 1. CT ANGIO HEAD 04/02/2024 8:[address] HEAD/BRAIN WO CON 04/02/2024 8:01 PM FINDINGS: Brain: No intracranial hemorrhage. Mild atrophic changes of the ventricles and subarachnoid spaces. Mild chronic small-vessel ischemic changes noted. No mass, mass effect or midline shift. Intracranial atherosclerotic changes are noted. Cerebral ventricles: See Brain finding. Paranasal sinuses: Visualized sinuses are unremarkable. No fluid levels. Mastoid air cells: Visualized mastoid air cells are well aerated. Bones: Unremarkable. No acute fracture. Soft tissues: Unremarkable. IMPRESSION: Stable noncontrast CT brain with chronic changes. No acute intracranial abnormality.
--- NOTE | 2025-07-13 19:55 | CT_ITS ---
PROCEDURE INFORMATION: Exam: CT Cervical Spine Without Contrast Exam date and time: 07/13/2025 8:41 PM Age: 65 years old Clinical indication: Injury or trauma; Fall; Other: Pain; Additional info: Fall, head trauma TECHNIQUE: Imaging protocol: Computed tomography of the cervical spine without contrast. Radiation optimization: All CT scans at this facility use at least one of these dose optimization techniques: automated exposure control; mA and/or kV adjustment per patient size (includes targeted exams where dose is matched to clinical indication); or iterative reconstruction. COMPARISON: CT CERVICAL SPINE WO CON 01/16/2024 6:54 AM FINDINGS: Bones: No evident fracture. Degenerative changes of the C-spine most pronounced at C3-C4 through C6-C7. Otherwise unremarkable CT of the C-spine. Alignment and vertebral body heights are intact. Lungs: Lung apices are normal. Soft tissues: Unremarkable. IMPRESSION: Degenerative changes. No acute abnormality.
--- NOTE | 2025-07-13 19:55 | CT_ITS ---
PROCEDURE INFORMATION: Exam: CT Maxillofacial Without Contrast Exam date and time: 07/13/2025 8:39 PM Age: 65 years old Clinical indication: Injury or trauma; Fall; Other: Pain; Additional info: Fall, bitemporal bruising/pain TECHNIQUE: Imaging protocol: Computed tomography of the face without contrast. Radiation optimization: All CT scans at this facility use at least one of these dose optimization techniques: automated exposure control; mA and/or kV adjustment per patient size (includes targeted exams where dose is matched to clinical indication); or iterative reconstruction. COMPARISON: CT HEAD/BRAIN WO CON 07/13/2025 8:37 PM FINDINGS: Paranasal sinuses: No air-fluid levels. Orbital cavities: Orbits are normal. Globes are unremarkable. Bones: No acute fracture. Soft tissues: Unremarkable. IMPRESSION: No acute findings.
--- NOTE | 2025-07-13 19:56 | HMH.EDGENADL ---
Discharge Plan Disposition Patient Disposition: Home, Self-Care Prescriptions Prescriptions: No Action lidocaine [Aspercreme (lidocaine)] 4 % adhesive patch,medicated 1 patch topical DAILYP PRN (Reason: Back Pain) levetiracetam 500 mg tablet 500 mg PO BID Patient Comments: TAKE 1 TABLET BY MOUTH TWICE DAILY promethazine 25 mg tablet 25 mg PO Q6H PRN (Reason: nausea and vomiting) Qty: 30 0RF metoclopramide HCl 10 mg tablet 10 mg PO TID propranolol 10 mg tablet 10 mg PO TID Patient Comments: TAKE 1 TABLET BY MOUTH AT BEDTIME FOR 4 DAYS THEN 1 TWICE DAILY FOR 4 DAYS THEN 1 THREE TIMES DAILY FOR 22 DAYS pregabalin 300 mg capsule 300 mg PO BID Patient Comments: TAKE 1 CAPSULE BY MOUTH TWICE DAILY Pro Fe 180 mg iron capsule See Rx Instructions .ROUTE .COMPLEX Qty: 90 0RF Dose Instruction: Take 1 capsule by mouth once daily Rx Instructions: Take 1 capsule by mouth once daily temazepam 15 mg capsule 15 mg PO HS 30 Days Qty: 30 2RF Zenpep 25,000-79,000- 105,000 unit capsule,delayed release(DR/EC) See Rx Instructions .ROUTE .COMPLEX Qty: 100 0RF Dose Instruction: TAKE 1 CAPSULE BY MOUTH THREE TIMES DAILY WITH FOOD Rx Instructions: TAKE 1 CAPSULE BY MOUTH THREE TIMES DAILY WITH FOOD pantoprazole 40 mg tablet,delayed release (DR/EC) See Rx Instructions .ROUTE .COMPLEX Qty: 180 0RF Dose Instruction: TAKE 1 TABLET BY MOUTH TWICE DAILY FOR STOMACH Rx Instructions: TAKE 1 TABLET BY MOUTH TWICE DAILY FOR STOMACH buspirone 7.5 mg tablet See Rx Instructions .ROUTE .COMPLEX Qty: 60 0RF Dose Instruction: Take 1 tablet by mouth twice daily Rx Instructions: Take 1 tablet by mouth twice daily paroxetine HCl 40 mg tablet See Rx Instructions .ROUTE .COMPLEX Qty: 30 0RF Dose Instruction: TAKE 1 TABLET BY MOUTH ONCE DAILY FOR DEPRESSION Rx Instructions: TAKE 1 TABLET BY MOUTH ONCE DAILY FOR DEPRESSION hydroxyzine HCl 50 mg tablet See Rx Instructions .ROUTE .COMPLEX Qty: 90 0RF Dose Instruction: TAKE 1 TABLET BY MOUTH THREE TIMES DAILY NEEDED FOR ANXIETY Rx Instructions: TAKE 1 TABLET BY MOUTH THREE TIMES DAILY NEEDED FOR ANXIETY ondansetron 4 mg tablet,disintegrating 4 mg PO Q6H PRN (Reason: nausea and vomiting) Qty: 10 0RF Referrals Follow up/Referrals: Betty Antonio APRN [Primary Care Provider, Medical] - See instructions Activity Restrictions/Add. Instructions Additional Instructions/Restrictions: Your CT scans did not show any signs of internal bleeding or broken bones. You likely have a mild concussion. You can take Tylenol and ibuprofen over the next several days. You will likely have brain fog and a headache for the next several days. I do want you to follow-up with your primary care doctor at the end of this week for reevaluation. If you develop any new or worsening symptoms, or if you become concerned for your health for any reason, return to the emergency department for evaluation. Clinical Impressions Clinical Impression: Concussion Instructions Patient Instructions: DI for Concussion Print Language Print Language: Chinese Discharge ED Provider: Sebastian Pack Adult HPI General Chief complaint: Fall Stated complaint: AO 07-13 fell and hurt right knee,left arm Time Seen by Provider: 07/13/25 19:41 Mode of Arrival: Ambulatory Source of Information: Patient and Relative Description of Symptoms (Recalled from ER Triage Doc. by RN): patient presents after a fall at home while chasing after dogs. patient was trying to prevent dogs from fighting and she lost her footing, fell, hit the right side of her head and then her left on hardwood floor. no vision changes associated. History of Present Illness HPI narrative: Caitlyn Mcbride is a 65y female with a history of tobacco use who presents to the emergency department for fall. Patient states that at approximately 6 PM tonight, she was chasing one of her dogs that was attacking another dog and slipped on poop in the floor. She states that she did hit the right side of her face on the floor and then proceeded to hit the left side of her face on the floor. She also hit her left elbow and right knee on the ground. She denies any loss of consciousness. She has been ambulatory afterwards. She is complaining of a headache and pain to her bilateral episcopal area. She denies any neck pain, chest pain, abdominal pain or shortness of breath. Related Data Home Medications ?Medication ?Instructions ?Recorded ?Confirmed lidocaine 4 % topical patch 1 patch topical DAILYP PRN Back 08/16/23 07/12/25 (Aspercreme (lidocaine)) Pain levetiracetam 500 mg tablet 500 mg PO BID 05/19/24 07/12/25 metoclopramide HCl 10 mg tablet 10 mg PO TID 07/20/24 07/12/25 propranolol 10 mg tablet 10 mg PO TID 02/19/25 07/12/25 pregabalin 300 mg capsule 300 mg PO BID 07/12/25 07/12/25 Previous Rx's ?Medication ?Instructions ?Recorded promethazine 25 mg tablet 25 mg PO Q6H PRN nausea and 01/19/25 vomiting #30 tabs ondansetron 4 mg disintegrating 4 mg PO Q6H PRN nausea and 02/25/25 tablet vomiting #10 tabs polysaccharide iron complex 180 mg See Rx Instructions .Route 04/23/25 iron capsule (Pro Fe) .COMPLEX #90 caps temazepam 15 mg capsule 15 mg PO HS Insomnia 30 days #30 05/05/25 caps [id number]-wfgyowt (pork) See Rx Instructions .Route 06/21/25 25,000-79,000-105k unit .COMPLEX #100 caps capsule,del rel (Zenpep) buspirone 7.5 mg tablet See Rx Instructions .Route 06/28/25 .COMPLEX #60 tabs pantoprazole 40 mg tablet,delayed See Rx Instructions .Route 06/28/25 release .COMPLEX #180 tabs paroxetine HCl 40 mg tablet See Rx Instructions .Route 07/02/25 .COMPLEX #30 tabs hydroxyzine HCl 50 mg tablet See Rx Instructions .Route 07/06/25 .COMPLEX #90 tabs Allergies Allergy/AdvReac Type Severity Reaction Status Date / Time levofloxacin (From LEVAQUIN) Allergy Unknown SEIZURES Verified 07/12/25 13:43 [facility] Disclaimer: The information contained in this section may have been updated after the patient was seen, as this information can be updated by other users. Medical History Abdominal pain Abnormal electrocardiogram [ECG] [EKG] Acute cystitis without hematuria Acute pancreatitis Bradycardia Closed right hip fracture Constipation Contusion, hip Depression Dyspnea Elevated blood pressure reading Encephalopathy Gastroesophageal reflux disease Hip fracture History of suicide attempt History of syncope Lower abdominal pain Marijuana abuse Memory loss Mood disorder Multiple lacunar infarcts Nausea Neuropathy Oral candidiasis Pancreatic disease Presence of pancreatic duct stent Rib pain on left side RUQ abdominal pain SIRS (systemic inflammatory response syndrome) Syncope and collapse Tobacco abuse Tobacco dependence syndrome Urinary tract infection Surgical History History of aortic valve replacement History of aortic valve replacement with porcine valve History of appendectomy History of hip replacement History of hysterectomy History of laparoscopic cholecystectomy History of repair of both hip joints History of tonsillectomy Family History Other Diabetes Hypertension Stroke Social History (Updated 07/12/25 @ 13:57 by Nancy Leger CMA) Smoking Status: Current every day smoker tobacco type: cigarettes packs per day: 1 smoking status start date: 17 yo years smoked: 48 second hand exposure: Yes alcohol intake: never substance use type: other current occupational status: retired Travel in the last 8 weeks?: None household members: family and children housing: house current occupational exposures/hazards: No caffeine: Yes Have you lived/traveled outside US in past 30 days?: No Contact w/someone who lives/traveled outside US past 30 days?: No Exposure to someone with infectious disease in past 14 days?: No Do you have a fever (greater than 100.4 F or 38 C)?: No Have you tested positive for COVID-19?: No Exposed to someone with COVID-19 in past 14 days?: No Do you have a sore throat?: No Do you have a cough?: No Do you have any weakness?: No Do you have any diarrhea?: No Are you experiencing any unusual bleeding?: No Do you have any muscle aches/pain?: No Do you have any abdominal pain?: No Are you experiencing loss of taste or smell?: No Other Medical History Have you received the Flu Vaccine for this season: No Have you received the Pneumonia Vaccine: No ROS Obtained: Yes Systems reviewed as appropriate & no additional complaints except as documented Physical Exam General General appearance: alert and in no apparent distress Head Head exam: other (Bruising and swelling to the by temporal region along the lateral aspect of the orbits) Eye Eye exam: Present normal appearance, PERRL and EOMI ENT ENT exam: Present normal external ear exam Neck Neck exam: Present full ROM Chest Chest inspection: Present symmetric chest wall rise Respiratory Respiratory exam: Present normal lung sounds bilaterally; Absent respiratory distress, wheezes or stridor Cardiovascular Cardiovascular exam: Present regular rate and normal rhythm Abdominal Exam Abdominal exam: Present soft; Absent tenderness or guarding Extremities Exam Extremities exam: Present normal inspection Back Exam Back exam: Present normal inspection; Absent vertebral tenderness Neurological Exam Neurological exam: Present alert and oriented X3 Psychiatric Psychiatric exam: Present normal affect Skin Skin exam: Present warm, dry and other (Superficial abrasion over the lateral left elbow mild tenderness in this area. Superficial abrasion along the midline patella on the right) Medical Decision Making Medical Records Screening: Per USPSTF and CDC recommendations, given the prevalence of disease in our region, it is our hospital?s policy to screen for HIV and viral Hepatitis for all patients aged 18 and over and those with ongoing risk factors. [place]man Inquiry Pt receiving controlled substance: No Vital Signs: 07/13/25 19:25 07/13/25 20:00 07/13/25 20:30 Temperature 98.2 F Temperature Source Oral Pulse Rate 63 64 Pulse Rate [Right Radial] 74 Respiratory Rate 18 Blood Pressure 137/63 132/78 Blood Pressure [Right Arm] 145/68 H Blood Pressure Mean 87 94 Blood Pressure Mean [Right Arm] 93 Blood Pressure Source Blood Pressure Source [Right Arm] Automatic Cuff Blood Pressure Position Blood Pressure Position [Right Arm] Sitting 02 Sat by Pulse Oximetry 96 96 96 Oxygen Delivery Method Room Air 07/13/25 21:00 07/13/25 21:29 07/13/25 21:30 Temperature Temperature Source Pulse Rate 64 64 Pulse Rate [Right Radial] Respiratory Rate Blood Pressure 147/61 H 129/59 L Blood Pressure [Right Arm] Blood Pressure Mean 89 89 Blood Pressure Mean [Right Arm] Blood Pressure Source Blood Pressure Source [Right Arm] Blood Pressure Position Blood Pressure Position [Right Arm] 02 Sat by Pulse Oximetry 95 97 Oxygen Delivery Method 07/13/25 21:31 07/13/25 22:01 Temperature 98.2 F Temperature Source Oral Pulse Rate 61 60 Pulse Rate [Right Radial] Respiratory Rate 20 Blood Pressure 130/60 Blood Pressure [Right Arm] Blood Pressure Mean Blood Pressure Mean [Right Arm] Blood Pressure Source Automatic Cuff Blood Pressure Source [Right Arm] Blood Pressure Position Sitting Blood Pressure Position [Right Arm] 02 Sat by Pulse Oximetry 97 Oxygen Delivery Method Room Air Orders (Tests/Meds): ORDERS Category Date Time Status CT cervical spine wo con Stat Cat Scan 07/13/25 19:[address] facial bones wo con Stat Cat Scan 07/13/25 19:[address] head/brain wo con Stat Cat Scan 07/13/25 19:55 Completed Medical Decision Narrative: Caitlyn Mcbride is a 65y female with a history of tobacco use who presents to the emergency department for fall. Patient states that at approximately 6 PM tonight, she was chasing one of her dogs that was attacking another dog and slipped on poop in the floor. She states that she did hit the right side of her face on the floor and then proceeded to hit the left side of her face on the floor. She also hit her left elbow and right knee on the ground. She denies any loss of consciousness. She has been ambulatory afterwards. She is complaining of a headache and pain to her bilateral episcopal area. She denies any neck pain, chest pain, abdominal pain or shortness of breath. On arrival, patient is hemodynamically stable, in no acute distress, breathing comfortably on room air with appropriate oxygen saturation. Physical exam, as stated above, revealed an overall well-appearing female in no distress. She is alert and oriented, moving all extremities. She has bruising to the bilateral episcopal areas and some tenderness in this area but no deformities. Pupils equal round reactive to light. Extraocular movements intact. No tenderness to the chest wall or abdomen. No tenderness or step-offs of the midline cervical, thoracic or lumbar spine. She has a skin tear over the left lateral elbow with full range of motion of the elbow no significant tenderness. She has an abrasion over the right anterior knee but full range of motion of the knee and has been ambulatory since this incident. Differential diagnosis includes, but is not limited to: Intracranial hemorrhage, facial bone fracture, orbital bone fracture, cervical spine fracture. I discussed obtaining x-ray imaging of her left elbow and right knee, however patient declines at this time. I do have low concern for fracture given her reassuring physical exam and feel that awaiting x-rays is reasonable at this time. Discussed with her about plan to obtain CT imaging of the head, C-spine and face and she is in agreement with this plan. She does not want any medication for pain at this time. I considered obtaining hematologic labs, however given the mechanical nature of the fall, I do not feel this would change ED management and is not indicated at this time. CT imaging was interpreted by me personally. No intracranial hemorrhage, mass or midline shift. No facial bone fracture. No cervical spine fracture or malalignment. See radiology report for details. On reassessment, patient remains in stable condition. She still reports a mild headache. I do feel that she likely has a mild concussion but no evidence of severe traumatic injury. I discussed with her symptomatic relief at home and to follow-up with her primary doctor. Return precautions were given. All questions were answered. She demonstrated understanding and was in agreement this plan. She was then discharged from the emergency department in stable condition. Critical Care Critical Care Time Critical Care Time: No
== END 2025-07-13 22:14 | disposition home or self-care (01) ==
PROVIDERS: Emergency Provider Student in an Organized Health Care Education/Training Program; PCP Nurse Practitioner Family
DX: S06.0XAA Concussion with loss of consciousness status unknown, initial encounter (principal); W18.31XA Fall on same level due to stepping on an object, initial encounter
CPT/HCPCS: 70450; 70486; 72125; 99284; 99285

== ENCOUNTER 2025-07-26 15:54 | Outpatient (CLI) | payer MEDICARE, SELFPAY ==
--- OUTSIDE RECORDS SUMMARY | 2025-07-26 15:56 | XMS_ITS | Clinical Summary ---
Author Organization [facility] Address [address] [place] [address] Phone Care Team Providers Care Drafting Supervisor Name Role Phone Unavailable Unavailable Conditions or Problems No information available. Medications No information available. Medications Administered No information available. Allergies, Adverse Reactions, Alerts No information available. Results No information available. Plan of Care No information available. Procedures No information available. Vital Signs No information available. Immunizations No information available. Advance Directives No information available.
--- OUTSIDE RECORDS SUMMARY | 2025-07-26 15:57 | XMS_ITS | Clinical Summary ---
Author Organization [employer] ([place], [place], [place], [place], [place]) Address [address] [place] [address] Care Team Providers Care Malt Liquors Sales Supervisor Name Role Phone Betty Antonio WAFFLE MACHINE OPERATOR Primary Care Provider Allergies Active Allergy Reactions [...] Date Gordo rded Speak language other than Sami at home Not on file 10/19/2023 Want [...] Advance Directives For more information, please contact: [phone] * Full Code (Latest Code Status on File) Date Activated Date Inactivated Comments 10/19/2023 6:17 PM 10/26/2023 4:31 PM Care Teams Malt Liquors Sales Supervisor Relationship Specialty Start Date End Date Betty Antonio, WAFFLE MACHINE OPERATOR [address] [address] PCP - General Nurse Practitioner 10/19/23
--- OUTSIDE RECORDS SUMMARY | 2025-07-26 15:57 | XMS_ITS | Clinical Summary ---
Author Organization [facility] Address [address] [address] Phone Care Team Providers Care Wellness Nurse Rn Name Role Phone Unavailable Primary Care Provider [...]
--- OUTSIDE RECORDS SUMMARY | 2025-07-26 15:57 | XMS_ITS | Clinical Summary ---
Author Organization [facility] Address [address] [place] [address] Care Team Providers Care Retail Sales Associate Seasonal Name Role Phone AntonioBetty zamorano [place] FRANK Primary Care Provider [phone] Allergies Active Allergy Reactions Criticality Noted Date [...] time each day. Active cholecalciferol 250 MCG (71401 UT) capsule Take 5,000 Units by mouth [...] place to sleep or slept in a longterm (including now)? No 09/27/2023 CAGE ASSESSMENT Answer [...] drink first t luzmaria in the morning (EYE-CAR EXAMINER) to steady your nerves or to get [...] of 2) 02/15/2008 UKY-Depression Screening 11/27/2024 11/28/2023 [id number] Vaccine (3 - season) 2025 09/05/2021, 01/10/2021 [...] this topic Medical Devices Implanted Type Area Loading Supervisor Device Identifier Shelf Expiration Date Model / Serial / Lot Stent Biliary 2.3 X 50mm - [id number] Implanted:Qty: 1 on 02/25/2023 by Flavio Noble MD at [facility]-[id number] 10/04/2025 [id number] / / [id number] Stent Biliary 2.3 X 50mm - [id number] Implanted:Qty: 1 on 02/25/2023 by Flavio Noble MD at [facility]-[id number] 11/12/2025 [id number] / / [id number] Procedures Procedure Name Priority Date/Time Associated Diagnosis [...] Lolly Johnson MD Proceduralist Celso Zimmerman Endo [employer] Rep Preprocedure A history and physical has been [...] of bowel preparation was evaluated using the [place] Bowel Preparation Scale with scores of: right [...] Antibody Negative Negative 04/01/2023 4:45 PM EDT [facility] Blood Venous blood specimen / Unknown Venipuncture / Unknown 04/01/2023 3:49 PM EDT 04/01/2023 4:03 PM EDT Juan Jose Novak MD LAB BLOOD ORDERABLES Final Resul t Performing Organization Address City/State/[facility] Co de Phone Number HEALTHCARE LAB [address] [place] [address] * Hemoglobin A1c (01/15/2023 5:04 PM EDT) [...] Adults <6.0% Children and Adolescents <7.5% Source: [place] Diabetes Association. Standards of medical care in diabetes,2017. Diabetes Care.2017:40 (suppl 1):S1-S135. HbA1c assay performed by an ion-exchange chromatography method that is certified traceable to the DCCT. us Albert SANCHEZ LAB BLOOD ORDERABLES Final Re sult Performing Organization Address [facility] Co de Phone Number HEALTHCARE [facility] [address] [place] [address] from Last 3 Months or Most Recently Relevant to Health Maintenance Insurance [facility] MEDICARE Advance Directives * Full Code [...] Patient has decision-making capacity? Yes Care Teams Retail Sales Associate Seasonal Relationship Specialty Start Date End Date Betty Antonio APRN [address] [place] [address] PCP - General 05/31/21
--- OUTSIDE RECORDS SUMMARY | 2025-07-26 15:57 | XMS_ITS | Clinical Summary ---
Author Organization [facility] Address [address] [place] [address] Care Team Providers Care Corporate Security Manager Name Role Phone PacoBetty MONIKA Primary Care Provider + [phone] Allergies Active Allergy Reactions Criticality Noted Date [...] 4 MG disintegrating tablet 3 Active Creon 10806-73650 units capsule delayed-release particles capsule Take 1 [...] Completed 04/01/2023 Medical Devices Implanted Type Area Content Specialist Device Identifier Shelf Expiration Date Model / Serial / Lot Scrw Hernandez Sd/St [id number] 6.5x85mm - [id number] Implanted:Qty : 2 on 04/13/2022 by Juan Bonds MD at [facility] Implant Left: Hip [employer] [id number] / / Scrw Hernandez Sd/St [id number] 6.5x80mm - [id number] Implanted:Qty : 1 on 04/13/2022 by Juan Bonds MD at [facility] Implant Left: Hip [employer] [id number] / / Insurance [employer] MEDICARE ADVANTAGE MEDICARE [...] Of Support Discussed With: Patient Care Teams Corporate Security Manager Relationship Specialty Start Date End Date Betty Antonio APRN PCP - General Internal Medicine 04/14/22
--- OUTSIDE RECORDS SUMMARY | 2025-07-26 15:57 | XMS_ITS | Referral Summary ---
Author Organization [employer] ([place], [place], [place], [place], [place]) Address [address] [place] [address] Care Team Providers Care Conference Organizer Name Role Phone Btety Antonio RECONNAISSANCE CREWMEMBER Primary Care Provider Allergies Active Allergy Reactions [...] Date Gordo rded Speak language other than Latvian at home Not on file 10/19/2023 Want [...] Advance Directives For more information, please contact: [phone] * Full Code (Latest Code Status on File) Date Activated Date Inactivated Comments 10/19/2023 6:17 PM 10/26/2023 4:31 PM Care Teams Conference Organizer Relationship Specialty Start Date End Date Betty Antonio, MONIKA [address] [address] PCP - General Nurse Practitioner 10/19/23
--- OUTSIDE RECORDS SUMMARY | 2025-07-26 15:57 | XMS_ITS | Encounter Summary ---
Author Organization [facility] Address [facility] [place] [address] Care Team Providers Care Employee Welfare Manager Name Role Phone Betty Antonio Primary Care Provider [phone] Source Comments This information has been disclosed [...] release of HIV test results or diagnoses. [id number] Health Reason for Visit * Reason Comments Medication Refill Encounter Details Date Type Department Care Team (Late st Contact Info) Description 07/20/2025 Refill [facility] Surgical Oncology at [facility] [address] [place] [phone] Ilia Wall MD [address] [place] [address]. [place] [phone] Idiopathic chronic pancreatitis ([facility]) Social History Tobacco Use Types Packs/Day Years Used Date Smoking Tobacco: Every Day Cigarettes 1 6.9 Started: 2019 Smokeless Tobacco: Never Alcohol Use Standard Drinks/Week Comments Not Currently 0 (1 standard drink = 0.6 oz pur e alcohol) [facility] Utilities Answer Date Recorded In the past [...] were you homeless or living in a chcf (including now)? No 07/11/2024 Yearly Questionnaire Answer [...] (CMS-HCC) documented in this encounter Care Teams Employee Welfare Manager Relationship Specialty Start Date End Date Betty Antonio [address] [place] [address] PCP - General 12/14/23 documented as of this encounter
--- OUTSIDE RECORDS SUMMARY | 2025-07-26 15:57 | XMS_ITS | Encounter Summary ---
Author Organization [facility] Address [address] [place] [address] Care Team Providers Care Brush Material Preparer Name Role Phone AntonioBetty zamorano [place] FRANK Primary Care Provider [phone] Encounter Details Date Type Department Care Team (Late st Contact Info) Description 04/04/2023 Billing Only Encounter [facility] Internal Medicine [address] [place] [address] Luz Jaime, RESPIRATORY CARE PROGRAM DIRECTOR [address] [place] [address] Social History Tobacco Use Types [...] drink first t luzmaria in the morning (EYE-PSYCHOLOGY FELLOW) to steady your nerves or to get [...] documented as of this encounter Care Teams Brush Material Preparer Relationship Specialty Start Date End Date Betty Antonio APRN [address] [place] [address] PCP - General 05/31/21 documented as of this encounter
--- OUTSIDE RECORDS SUMMARY | 2025-07-26 15:57 | XMS_ITS | Encounter Summary ---
Author Organization [facility] Address [facility] [place] [address] Care Team Providers Care Mentally Impaired Teacher Name Role Phone Betty Antonio Primary Care Provider [phone] Source Comments This information has been disclosed [...] release of HIV test results or diagnoses. [id number] Health Reason for Visit * Reason Comments Medication Refill Encounter Details Date Type Department Care Team (Late st Contact Info) Description 06/01/2025 Refill [facility] Surgical Oncology at [facility] [address] [place] [phone] Ilia Wall MD [address] [place] [address]. [place] [phone] Idiopathic chronic pancreatitis ([facility]) Social History Tobacco Use Types Packs/Day Years Used Date Smoking Tobacco: Every Day Cigarettes 1 6.9 Started: 2019 Smokeless Tobacco: Never Alcohol Use Standard Drinks/Week Comments Not Currently 0 (1 standard drink = 0.6 oz pur e alcohol) [facility] Utilities Answer Date Recorded In the [...] any time in the past 12 m [facility], were you homeless or [...] (CMS-HCC) documented in this encounter Care Teams Mentally Impaired Teacher Relationship Specialty Start Date End Date Betty Antonio [address] [place] [address] PCP - General 12/14/23 documented as of this encounter
--- OUTSIDE RECORDS SUMMARY | 2025-07-26 15:57 | XMS_ITS | Encounter Summary ---
Author Organization [place] [address] Care Team Providers Care Beamer Helper Name Role Phone Unavailable Primary Care Provider Unavailabl e Encounter Details Date Type Department Care Team (Late st Contact Info) Description 03/02/2024 Lab Requisition [facility] [address] [place] [facility] Madison Metcalf MD [address] [place] [id number] Acute and subacute infective endocarditis Social History [...] ORDERABLES Final Resu lt Performing Organization Address [facility] [place] [facility] Co de Phone Number [facility] [address] [place] [address] * EXTRA GOLD SST (03/02/2024 10:30 AM EDT) Blood VENOUS BLOOD / Unknown 03/02/2024 10:30 AM EDT 03/02/2024 7:12 PM EDT us Madison Metcalf MD CHEMISTRY ORDERABLES Final Resul t Performing Organization Address [facility] de Phone Number [facility] [address] [place] [address] * (ABNORMAL) C-REACTIVE PROTEIN (03/02/2024 10:30 AM EDT) CRP 6.89(H) <=5.00 mg/L 03/02/2024 8:25 PM EDT [facility] [employer] Blood VENOUS BLOOD / Unknown 03/02/2024 10:30 AM EDT 03/02/2024 7:12 PM EDT Result Lashell Metcalf MD CHEMISTRY ORDERABLES Final Resul t Performing Organization Address [facility] [place] [facility] de Phone Number [facility] [employer] [address] [place] [address] * (ABNORMAL) SEDIMENTATION RATE AUTOMATED (03/02/2024 10:30 AM EDT) Sed Rate 39(H) 0 - 30 mm/hr 03/02/2024 7:58 PM EDT [facility] [employer] [employer] Blood VENOUS BLOOD / Unknown 03/02/2024 10:30 AM EDT 03/02/2024 7:12 PM EDT us Madison Metcalf MD HEMATOLOGY ORDERABLES Final Resu lt [facility] [address] [facility] , [place] [address] * (ABNORMAL) COMPREHENSIVE METABOLIC PANEL (03/02/2024 10:30 [...] mL/min/1.7 3 m2 03/02/2024 8:25 PM EDT [facility] Comment:Estimated GFR was ca lculated using the CKD-EPIcr (2020) equation refit without race. The equation is recommended by the National Kidney Foundation - [place] Society of Nephrology Task Force. Blood VENOUS BLOOD / Unknown 03/02/2024 10:30 AM EDT 03/02/2024 7:12 PM EDT us Madison Metcalf MD CHEMISTRY ORDERABLES Final Resul t [facility], [facility] [address] , [place] [address] [facility] [address] [place] [address] * (ABNORMAL) CBC WITH DIFF [...] 03/02/2024 7:58 PM EDT [facility] MPV 10.8 8.8 - 12.5 fL 03/02/2024 7:58 PM EDT [facility] Neut Percent 52.7 % 03/02/2024 7:58 PM EDT [facility] Comment:Neutrophils equals s egs plus bands Imm Gran% 0.6 % 03/02/2024 7:58 PM EDT [facility] Comment:Automated count of m etamyelocytes, myelocytes and promyelocytes. Lymph Percent 30.8 % 03/02/2024 7:58 PM EDT [facility] [place] Percent 5.8 % 03/02/2024 7:58 PM EDT [facility] Eos Percent 8.6 % 03/02/2024 7:58 PM EDT [facility] Baso Percent 1.5 % 03/02/2024 7:58 PM EDT [facility] Neut # 3.8 1.6 - 6.1 x10(3)/[facility] 03/02/2024 7:58 PM EDT [facility], [facility] Comment:Neutrophils equals s egs plus bands IMMGRAN# 0.0 0.0 - 0.1 x10(3)/[facility] 03/02/2024 7:58 PM EDT [facility], [facility] Comment:Automated count of m etamyelocytes, myelocytes and promyelocytes. An absolute IG <0.1 is reported as 0.0. Lymph # 2.2 1.2 - 3.9 x10(3)/[facility] 03/02/2024 7:58 PM EDT [facility], [facility] [place] # 0.4 0.3 - 0.9 x10(3)/[facility] 03/02/2024 7:58 PM EDT [facility], [facility] Eos# 0.6(H) 0.0 - 0.5 x10(3)/[facility] 03/02/2024 7:58 PM EDT [facility], [facility] Baso # 0.1 0.0 - 0.1 x10(3)/[facility] 03/02/2024 7:58 PM EDT [facility], [facility] Blood VENOUS BLOOD / Unknown 03/02/2024 10:30 AM EDT 03/02/2024 7:12 PM EDT us Madison Metcalf MD HEMATOLOGY ORDERABLES Final Resu lt [facility] [employer] [employer] [address] , [address] [place] [id number] documented in this encounter Visit Diagnoses Diagnosis 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
--- OUTSIDE RECORDS SUMMARY | 2025-07-26 15:57 | XMS_ITS | Clinical Summary ---
Author Organization [facility] Address [address] [place] [address] Care Team Providers Care Nailing Machine Feeder Name Role Phone Betty Antonio Primary Care Provider [phone] Source Comments This information has been disclosed [...] therelease of HIV test results or diagnoses. [id number] Allergies Active Allergy Reactions Criticality Noted Date Comments Levofloxacin 12/14/2023 Medications PRO FE 180 mg iron Cap Take 1 capsule (180 mg total) by mouth daily. AM 12/19/19 24 Active magnesium oxide (MAG-OX) 400 mg tablet Take 1 tablet (400 mg total) by mouth in the morning and at bedtime. 10/26/19 24 Active pantoprazole (PROTONIX) 40 MG tablet TAKE 1 TABLET BY MOUTH TWICE DAILY FOR STOMACH Active PARoxetine (PAXIL) 40 MG tablet Take 1 tablet (40 mg total) by mouth every morning. 04/18/20 21 Active temazepam (RESTORIL) 15 mg capsule TAKE 1 CAPSULE BY MOUTH AT BEDTIME NIGHTLY FOR INSOMNIA Active nicotine (NICODERM CQ) 21 mg/[address] 1 patch onto the skin daily. 28 patch 02/27/20 Active Additional Information Patient not taking.Reported on 05/11/2025 nicotine polacrilex (COMMIT) [address] 4 mg inside cheek every hour as needed. 100 lozenge 02/26/20 Active Additional Information Patient not taking.Reported on 05/11/2025 nicotine (NICODERM CQ) 14 mg/[address] 1 patch onto the skin daily. Start after completed with the 21 mg patches. 28 patch 03/10/20 Active Additional Information Patient not taking.Reported on 05/11/2025 atorvastatin (LIPITOR) 40 MG tablet Take 1 tablet (40 mg total) by mouth at bedtime. 30 tablet 4 4:28 PM EDT 04/21/20 24 Active senna-docusate (SENNA-S) 8.6-50 mg per tablet Take 1 tablet by mouth 2 times a day. 30 tablet 4 4:28 PM EDT 04/21/20 Active Additional Information Patient not taking.Reported on 05/11/2025 cholecalciferol , vitamin D3, 250 mcg (10,000 unit) Cap Take 1 tablet by mouth daily. 04/21/20 Active vitamin E, dl,tocopheryl acet, (VITAMIN E, DL, ACETATE,) 45 mg (100 unit) Cap Take 1 capsule (100 Units total) by mouth daily. 04/21/20 24 Active busPIRone (BUSPAR) 7.5 MG tablet Take 1 tablet (7.5 mg total) by mouth 2 times a day. Active hydrOXYzine HCL (ATARAX) 25 MG tablet Take 1 tablet (25 mg total) by mouth 2 times a day. Active levETIRAcetam (KEPPRA) 500 MG tabletIndicatio ns:Abnormal EEG Take 1 tablet (500 mg total) by mouth 2 times a day. 180 tablet 3 06/25/20 24 Active metoclopramide HCl (REGLAN) 10 MG tablet Take 1 tablet (10 mg total) by mouth every 6 hours. 120 tablet 4 5:44 PM EST 07/14/20 24 Active pregabalin (LYRICA) 300 MG capsuleIndicati ons:Idiopathic chronic pancreatitis (CMS-HCC) Take 1 capsule (300 mg total) by mouth in the morning and at bedtime for 30 days. 60 capsule 07/22/20 25 025 Active pregabalin (LYRICA) 300 MG capsuleIndicati ons:Idiopathic chronic pancreatitis (CMS-HCC) TAKE 1 CAPSULE BY MOUTH TWICE DAILY FOR NEUROPATHIC PAIN 60 capsule 06/07/20 25 025 Discontinued Active Problems Patient Care Coordination No te Formatting of this note migh t be different from the original. [employer] 4238.Julio Winston MSN RN. she/hers. [facility] Infectious Diseases -- OPAT (Outpatient Parenteral Antimicrobial Therapy). [phone]. Problem Noted Date Diagnosed Date Tinnitus of both ears 02/02/2025 Chronic pancreatitis 06/16/2024 Fungemia 04/06/2024 Subacute bacterial endocarditis 02/26/2024 Encounters Date Type Department Care Team Description 07/20/2025 Refill [facility] Surgical Oncology at [address] [address] Ilia Wall MD Idiopathic chronic pancreatitis ([facility]) 06/01/2025 Refill [facility] Surgical Oncology at [address] [address] Ilia Wall MD Idiopathic chronic pancreatitis ([facility]) 05/11/2025 3:00 PM EDT Office Visit [facility] Cardiology at [facility] [address] [facility] [address] [place] [address] Radha Alvarez MD Abnormality of aortic valve (Primary Dx); History of endocarditis; Encounter for smoking cessation counseling 05/11/2025 Telephone [facility] Cardiology at [facility] [address] [facility] [address] [place] [address] Radha Alvarez MD 04/28/2025 Refill [facility] Surgical Oncology at [address] [address] Ilia Wall MD Idiopathic chronic pancreatitis ([facility]) from Last 3 Months Family History Medical History Relation Comments Hypertension Brother Depression Father Diabetes Father Hypertension Father Relation Status Comments Brother Father Social History Tobacco Use Types Packs/Day Years Used Date Smoking Tobacco: Every Day Cigarettes 1 6.9 Started: 2019 Smokeless Tobacco: Never Tobacco Cessation:Ready to Q uit: Not Asked; Counseling Given: Not Answered Alcohol Use Standard Drinks/Week Comments Not Currently 0 (1 standard drink = 0.6 oz pur e alcohol) [facility] Utilities Answer Date Recorded In the past [...] any time in the past 12 m [facility], were you homeless or living in a longterm (including now)? No 07/11/2024 Yearly Questionnaire Answer [...] Screening (DXA Scan) 02/15/2008 Immunization: COVID-19 ( - season) 2025 09/05/2021, 01/10/2021 Immunization: Influenza (MyC [...] Ab Nonreactive Nonreactive 12/14/2023 4:24 PM EDT [facility] Comment:Health Department no tified in accordance with reportable infectious disease guidelines. HCVAB Number 0.04 0.00 - 0.79 S/CO 12/14/2023 4:24 PM EDT [facility] Serum 12/14/2023 3:11 PM EDT 12/14/2023 3:24 PM EDT us Olivia Estevez MD LAB BLOOD ORDERABLES Final Resul t [facility] [address] [place] [address], [facility] from Last 3 Months or Most Recently Relevant to Health Maintenance Insurance [employer] PPO MEDICARE Advance Directives For more information, please contact: [phone] * Full Code (Latest Code Status on [...] 6:53 PM 02/27/2024 12:09 AM Care Teams Nailing Machine Feeder Relationship Specialty Start Date End Date Betty Antonio [address] [place] [address] PCP - General 12/14/23
--- OUTSIDE RECORDS SUMMARY | 2025-07-26 15:57 | XMS_ITS | Encounter Summary ---
Author Organization [facility] Address [facility] [place] [address] Care Team Providers Care Scientist Propagator Name Role Phone Betty Antonio Primary Care Provider [phone] Source Comments This information has been disclosed [...] release of HIV test results or diagnoses. [id number] Health Encounter Details Date Type Department Care Team (Late st Contact Info) Description 04/10/2024 Ophth Exam [facility] Ophthalmology at [address] [place] [phone] Elan Cates MD [address] [place] [address] Social History Tobacco Use Types Packs/Day Years Used Date Smoking Tobacco: Every Day Cigarettes 1 6.9 Started: 2019 Smokeless Tobacco: Never Alcohol Use Standard Drinks/Week Comments Not Currently 0 (1 standard drink = 0.6 oz pur e alcohol) [facility] Utilities Answer Date Recorded In the [...] any time in the past 12 m [facility], were you homeless or living in a snf (including now)? No 04/04/2024 Yearly Questionnaire Answer [...] on file documented as of this encounter Functional Status * Peripheral Vascular Question Answer Date of Assessment Author Compression boots No 04/13/2024 8:00 PM EDT Termaine Peter, RN Peripheral Vascular (WDL) X 04/13/2024 8:00 PM EDT Tremaine Peter, RN documented as of this encounter Plan of Treatment Not on file documented as of this encounter Visit Diagnoses Not on filedocumented in this encounter Care Teams Scientist Propagator Relationship Specialty Start Date End Date Betty Antonio [facility] [place] [address] PCP - General 12/14/23 documented as of this encounter
--- OUTSIDE RECORDS SUMMARY | 2025-07-26 15:57 | XMS_ITS | Encounter Summary ---
Author Organization Healthcare Address [address] [place] [address] Care Team Providers Care Labor Relations Or Personnel Negotiator Name Role Phone AntonioVickishanna Coleman APRN Primary Care Provider [phone] Reason for Visit * Reason Comments Med Refill Encounter Details Date Type Department Care Team (Late st Contact Info) Description 08/07/2023 Refill [facility] [address] [place] [address] Albert Fierro PA [address] [place] [address] Social History Tobacco Use Types [...] drink first t luzmaria in the morning (EYE-PROGRAM SUPPORT SPECIALIST) to steady your nerves or to get [...] 30 day supply with 2 refill(s) to [facility] pharmacy. documented in this encounter Plan [...] documented as of this encounter Care Teams Labor Relations Or Personnel Negotiator Relationship Specialty Start Date End Date Betty Antonio APRN [address] [place] [address] PCP - General 05/31/21 documented as of this encounter
--- OUTSIDE RECORDS SUMMARY | 2025-07-26 15:57 | XMS_ITS | Encounter Summary ---
[facility] Organization [facility] Address [address] [place] [address] Care Team Providers Care Second Language Tutor Name Role Phone Betty Antonio BOAT RENTAL CLERK Primary Care Provider + [phone] Reason for Visit * Reason Comments Med Refill Encounter Details Date Type Department Care Team (Late st Contact Info) Description 07/30/2022 Refill [facility] [address] [place] [address] Juan Bonds MD [address] [place] [address] Closed fracture of neck of left femur [...] process of discussing with Dr. Beverley Johnson. Juana Perez RN CIC. 04/13/22 Discussed with Corrie [...] documented as of this encounter Care Teams Second Language Tutor Relationship Specialty Start Date End Date Betty Antonio APRN PCP - General Internal Medicine 04/14/22 documented as of this encounter
--- OUTSIDE RECORDS SUMMARY | 2025-07-26 15:57 | XMS_ITS | Clinical Summary ---
Author Organization [facility] Address [address] [place] [address] Care Team Providers Care Field Services Analyst Name Role Phone Leila Townsend MD Primary Care Provider + [phone] Social History Tobacco Use Types Packs/Day Years Used Date Smoking Tobacco: Never Assessed Comments Unknown Sex and Gender Information Value Date Recorded Sex Assigned at Not on file Legal Sex Female 3:11 PM EDT Gender Identity Not on file Sexual Orientation Not on file Plan of Treatment Not on file Insurance ANTHEM Care Teams Field Services Analyst Relationship Specialty Start Date End Date Leila Townsend MD [address] [facility] PCP - General Family Medicine 07/12/14
--- OUTSIDE RECORDS SUMMARY | 2025-07-26 15:57 | XMS_ITS | Encounter Summary ---
Author Organization [facility] Address [address] [place] [address] Care Team Providers Care Offset Platemaker Name Role Phone Betty Antonio Primary Care Provider [phone] Source Comments This information has been disclosed [...] release of HIV test results or diagnoses. [id number] Health Encounter Details Date Type Department Care Team (Late st Contact Info) Description 02/26/2024 Ophth Exam [facility] Ophthalmology at [address] [place] [phone] Raul Raymond MD Social History Tobacco Use Types Packs/Day Years Used Date Smoking Tobacco: Every Day Cigarettes 1 6.9 Started: 2019 Smokeless Tobacco: Never Alcohol Use Standard Drinks/Week Comments Not Currently 0 (1 standard drink = 0.6 oz pur e alcohol) [facility] Utilities Answer Date Recorded In [...] time in the past 12 m [facility], were you homeless or living in a residential (including now)? No 02/22/2024 Comments No Sex and Gender Information Value Date Recorded Sex Assigned at Female 01/01/2024 11:14 AM EDT Legal Sex Female 1:33 PM EDT Gender Identity Female 01/01/2024 11:14 AM EDT Sexual Orientation Not on file documented as of this encounter Functional Status * Peripheral Vascular Question Answer Date of Assessment Author Peripheral Vascular (WDL) WDL 02/26/2024 8:30 AM EDT Catia Chavez RN documented as of this encounter Plan of Treatment Not on file documented as of this encounter Visit Diagnoses Not on filedocumented in this encounter Care Teams Offset Platemaker Relationship Specialty Start Date End Date Betty Antonio [address] [place] [address] [address] [place] [address] PCP - General 12/14/23 documented as of this encounter
--- OUTSIDE RECORDS SUMMARY | 2025-07-26 15:57 | XMS_ITS | Encounter Summary ---
Author Organization [facility] Address [facility] [place] [address] Care Team Providers Care Bale Coverer Name Role Phone Betty Antonio Primary Care Provider [phone] Source Comments This information has been disclosed [...] release of HIV test results or diagnoses. [id number] Health Reason for Visit * Reason Comments Medication Refill Encounter Details Date Type Department Care Team (Late st Contact Info) Description 04/28/2025 Refill [facility] Surgical Oncology at [facility] [address] [place] [phone] [place] [address] [place] [address]. [place] [phone] Idiopathic chronic pancreatitis ([facility]-H[facility]) Social History Tobacco Use Types Packs/Day Years Used Date Smoking Tobacco: Every Day Cigarettes 1 6.9 Started: 2019 Smokeless Tobacco: Never Alcohol Use Standard Drinks/Week Comments Not Currently 0 (1 standard drink = 0.6 oz pur e alcohol) [facility] Utilities Answer Date Recorded In [...] No 07/11/2024 Housing Stability Vital Sign Answer Gbariel e Recorded In the last 12 months, was t here a time when you were not able to pay the mortgage or rent on time? No 07/11/2024 In the past 12 months, how m any times have you moved where you were living? 0 07/11/2024 At any time in the past 12 m [facility], were you homeless or living in a [...] (CMS-HCC) documented in this encounter Care Teams Bale Coverer Relationship Specialty Start Date End Date Betty Antonio [address] [place] [address] PCP - General 12/14/23 documented as of this encounter
[2025-07-26 16:48] LABS: Hematocrit 47.8 % (37.0-47.0); Hemoglobin 16.0 g/dL (12.2-16.2); Mean Corpuscular HGB Conc 33.5 g/dL (31.8-35.4); Mean Corpuscular Hemoglobin 31.1 pg (27.0-31.2); Mean Corpuscular Volume 93.0 fl (81-99); Nucleated Red Blood Cells % 0 %; Platelet Count 176 K/mm3 (142-424); Red Blood Count 5.14 M/mm3 (4.20-5.40); Red Cell Distribution Width-SD 58.2 fL; White Blood Count 10.2 K/mm3 (4.8-10.8)
[2025-07-26 17:16] LABS: Albumin Level 4.0 g/dl (3.5-5.0); Chloride 115 mmol/L (98-107)
[2025-07-26 17:17] LABS: Potassium 4.2 mmoL/L (3.5-5.1); Sodium 142 mmol/L (136-145)
[2025-07-26 17:19] LABS: Alanine Aminotransferase 18 U/L (12-78); Anion Gap 24.2 mEq/L (5-15); Aspartate Amino Transferase 42 U/L (14-36); Blood Urea Nitrogen 24 mg/dl (7-17); Creatinine,Serum 1.00 mg/dl (0.52-1.04); Estimated Glomerular Filt Rate 55 ml/min (>60); GFR (African American) 67 ML/MIN (>60)
[2025-07-26 17:20] LABS: Albumin/Globulin Ratio 1.3 (1.1-1.8); Alkaline Phosphatase 99 U/L (38-126); Bilirubin,Total 0.5 mg/dl (0.2-1.3); Calcium 9.0 mg/dl (8.4-10.2); Globulin 3.0 g/dL (1.3-3.2); Glucose 86 mg/dl (74-100); Total Protein,Serum 7.0 g/dl (6.3-8.2)
[2025-07-26 17:56] LABS: Ferritin 154 ng/ml (11.1-264)
[2025-07-26 19:30] LABS: Carbon Dioxide 7 mmol/L (22.0-30.0)
[2025-07-26 19:31] LABS: Vitamin B12 272 pg/mL (239-931)
[2025-07-26 19:33] LABS: C-Reactive Protein 3.0 mg/L (0-4); Thyroid Stimulating Hormone 2.71 uIU/mL (0.465-4.68)
[2025-07-27 12:13] LABS: Antinuclear Antibodies (ANA) Negative (Negative)
== END 2025-07-26 23:59 | disposition home or self-care (01) ==
LOC: LAB 15:54
PROVIDERS: PCP Nurse Practitioner Family; Visit Provider Nurse Practitioner Family
DX: R29.6 Repeated falls (principal); R29.898 Other symptoms and signs involving the musculoskeletal system; R20.0 Anesthesia of skin; R20.2 Paresthesia of skin; D64.9 Anemia, unspecified
CPT/HCPCS: 36415; 80053; 82525; 82607; 82728; 84443; 84630; 85027; 86038; 86140

== ENCOUNTER 2025-07-26 21:56 | Inpatient (IN) | payer MEDICARE, SELFPAY ==
[2025-07-26 22:05] VITALS: BP 141/87; PULSE 86; RESP 18; TEMP 36.6; O2SAT 99; BMI 22.1
--- OUTSIDE RECORDS SUMMARY | 2025-07-26 22:09 | XMS_ITS | Clinical Summary ---
Author Organization [facility] Address [address] [facility] [address] [place] [address] Phone Care Team Providers Care Manager Of Financial Name Role Phone Unavailable Unavailable Conditions or Problems No information available. Medications No information available. Medications Administered No information available. Allergies, Adverse Reactions, Alerts No information available. Results No information available. Plan of Care No information available. Procedures No information available. Vital Signs No information available. Immunizations No information available. Advance Directives No information available.
--- OUTSIDE RECORDS SUMMARY | 2025-07-26 22:09 | XMS_ITS | Encounter Summary ---
Author Organization Healthcare Address [address] [place] [address] Care Team Providers Care Registered Midwife Name Role Phone AntonioVickishanna Coleman APRN Primary Care Provider [phone] Reason for Visit * Reason Comments Med Refill Encounter Details Date Type Department Care Team (Late st Contact Info) Description 08/07/2023 Refill [facility] [address] [place] [address] Albert Fierro PA [address] [place] [address] Social History Tobacco Use Types [...] drink first t luzmaria in the morning (EYE-ENGINEERING ASSOCIATE) to steady your nerves or to get [...] 30 day supply with 2 refill(s) to [facility] pharmacy. documented in this encounter Plan of [...] documented as of this encounter Care Teams Registered Midwife Relationship Specialty Start Date End Date Betty Antonio APRN [address] [place] [address] PCP - General 05/31/21 documented as of this encounter
--- OUTSIDE RECORDS SUMMARY | 2025-07-26 22:09 | XMS_ITS | Encounter Summary ---
Author Organization [facility] Address [facility] [place] [address] Care Team Providers Care Freight Brakeman Name Role Phone Betty Antonio Primary Care Provider [phone] Source Comments This information has been disclosed [...] release of HIV test results or diagnoses. [id number] Health Reason for Visit * Reason Comments Medication Refill Encounter Details Date Type Department Care Team (Late st Contact Info) Description 06/01/2025 Refill [facility] Surgical Oncology at [facility] [address] [place] [phone] Ilia Wall MD [address] [place] [address]. [place] [phone] Idiopathic chronic pancreatitis ([facility]-H[facility]) Social History Tobacco Use Types Packs/Day Years Used Date Smoking Tobacco: Every Day Cigarettes 1 6.9 Started: 2019 Smokeless Tobacco: Never Alcohol Use Standard Drinks/Week Comments Not Currently 0 (1 standard drink = 0.6 oz pur e alcohol) [facility] Utilities Answer Date Recorded In the past [...] (CMS-HCC) documented in this encounter Care Teams Freight Brakeman Relationship Specialty Start Date End Date Betty Antonio [address] [place] [address] PCP - General 12/14/23 documented as of this encounter
--- OUTSIDE RECORDS SUMMARY | 2025-07-26 22:09 | XMS_ITS | Encounter Summary ---
Author Organization [facility] Address [facility] [place] [address] Care Team Providers Care Switchboard Mechanic Name Role Phone Betty Antonio Primary Care Provider [phone] Source Comments This information has been disclosed [...] release of HIV test results or diagnoses. [id number] Health Reason for Visit * Reason Comments Medication Refill Encounter Details Date Type Department Care Team (Late st Contact Info) Description 04/28/2025 Refill [facility] Surgical Oncology at [facility] [address] [place] [phone] [place] [address] [place] [address]. [place] [phone] Idiopathic chronic pancreatitis ([facility]-HCC) Social History Tobacco Use Types Packs/Day Years Used Date Smoking Tobacco: Every Day Cigarettes 1 6.9 Started: 2019 Smokeless Tobacco: Never Alcohol Use Standard Drinks/Week Comments Not Currently 0 (1 standard drink = 0.6 oz pur e alcohol) [facility] Utilities Answer Date Recorded In the [...] any time in the past 12 m [facility], were you homeless or living in [...] (CMS-HCC) documented in this encounter Care Teams Switchboard Mechanic Relationship Specialty Start Date End Date Betty Antonio [address] [place] [address] PCP - General 12/14/23 documented as of this encounter
--- OUTSIDE RECORDS SUMMARY | 2025-07-26 22:09 | XMS_ITS | Clinical Summary ---
Author Organization [facility] Address [address] [place] [address] Phone Care Team Providers Care Core Manager Name Role Phone Unavailable Primary Care Provider [...]
--- OUTSIDE RECORDS SUMMARY | 2025-07-26 22:09 | XMS_ITS | Encounter Summary ---
Author Organization [facility] Address [address] [place] [address] Care Team Providers Care Public Relations Name Role Phone Betty Antonio Primary Care Provider [phone] Source Comments This information has been disclosed [...] release of HIV test results or diagnoses. [id number] Health Encounter Details Date Type Department Care Team (Late st Contact Info) Description 02/26/[address] [facility] Ophthalmology at [address] [place] [phone] Raul Raymond MD Social History Tobacco Use Types Packs/Day Years Used Date Smoking Tobacco: Every Day Cigarettes 1 6.9 Started: 2019 Smokeless Tobacco: Never Alcohol Use Standard Drinks/Week Comments Not Currently 0 (1 standard drink = 0.6 oz pur e alcohol) [facility] Utilities Answer Date Recorded In [...] time in the past 12 m [facility], were you homeless or living in a longterm (including now)? No 02/22/2024 Comments No Sex [...] on filedocumented in this encounter Care Teams Public Relations Relationship Specialty Start Date End Date Betty Antonio [address] [place] [address] [address] [place] [address] PCP - General 12/14/23 documented as of this encounter
--- OUTSIDE RECORDS SUMMARY | 2025-07-26 22:09 | XMS_ITS | Clinical Summary ---
Author Organization [facility] Address [address] [place] [address] Care Team Providers Care Shotweld Operator Name Role Phone Leila Townsend MD Primary Care Provider + [phone] Social History Tobacco Use Types Packs/Day Years Used Date Smoking Tobacco: Never Assessed Comments Unknown Sex and Gender Information Value Date Recorded Sex Assigned at Not on file Legal Sex Female 3:11 PM EDT Gender Identity Not on file Sexual Orientation Not on file Plan of Treatment Not on file Insurance ANTHEM Care Teams Shotweld Operator Relationship Specialty Start Date End Date Leila Townsend MD [address] [facility] PCP - General Family Medicine 07/12/14
--- OUTSIDE RECORDS SUMMARY | 2025-07-26 22:09 | XMS_ITS | Encounter Summary ---
Author Organization [facility] Address [facility] [place] [address] Care Team Providers Care Van Driver Name Role Phone Betty Antonio Primary Care Provider [phone] Source Comments This information has been disclosed [...] release of HIV test results or diagnoses. [id number] Health Encounter Details Date Type Department Care Team (Late st Contact Info) Description 04/10/[address] [facility] Ophthalmology at [address] [place] [phone] Elan Cates MD [address] [place] [address] Social History Tobacco Use Types Packs/Day Years Used Date Smoking Tobacco: Every Day Cigarettes 1 6.9 Started: 2019 Smokeless Tobacco: Never Alcohol Use Standard Drinks/Week Comments Not Currently 0 (1 standard drink = 0.6 oz pur e alcohol) [facility] Utilities Answer Date Recorded In the past [...] any time in the past [facility] m [facility], were you homeless or living in a longterm (including now)? No 04/04/2024 Yearly Questionnaire Answer [...] Compression boots No 04/13/2024 8:00 PM EDT Tremaine Peter, RN Peripheral Vascular (WDL) X 04/13/2024 8:00 PM EDT Tremaine Peter, RN documented as of this encounter Plan of Treatment Not on file documented as of this encounter Visit Diagnoses Not on filedocumented in this encounter Care Teams Van Driver Relationship Specialty Start Date End Date Betty Antonio [facility] [place] [address] PCP - General 12/14/23 documented as of this encounter
--- OUTSIDE RECORDS SUMMARY | 2025-07-26 22:10 | XMS_ITS | Clinical Summary ---
[facility] Address [address] [place] [address] Care Team Providers Care Research Assistant Name Role Phone PacoBetty MONIKA Primary Care Provider + [phone] Allergies Active Allergy Reactions Criticality Noted Date [...] 4 MG disintegrating tablet 3 Active Creon 46857-70831 units capsule delayed-release particles capsule Take 1 [...] Completed 04/01/2023 Medical Devices Implanted Type Area Otolaryngology Surgeon Device Identifier Shelf Expiration Date Model / Serial / Lot Scrw Hernandez Sd/St [id number] 6.5x85mm - [id number] Implanted:Qty : 2 on 04/13/2022 by Juan Bonds MD at [facility] Implant Left: Hip [employer] [id number] / / Scrw Hernandez Sd/St [id number] 6.5x80mm - [id number] Implanted:Qty : 1 on 04/13/2022 by Juan Bonds MD at [facility] Implant Left: Hip [employer] [id number] / / Insurance [employer] MEDICARE ADVANTAGE MEDICARE [...] Of Support Discussed With: Patient Care Teams Research Assistant Relationship Specialty Start Date End Date Betty Antonio APRN PCP - General Internal Medicine 04/14/22
--- OUTSIDE RECORDS SUMMARY | 2025-07-26 22:10 | XMS_ITS | Encounter Summary ---
Author Organization [facility] Address [facility] [place] [address] Care Team Providers Care Ham Rolling Machine Operator Name Role Phone Betty Antonio Primary Care Provider [phone] Source Comments This information has been disclosed [...] release of HIV test results or diagnoses. [id number] Health Reason for Visit * Reason Comments Medication Refill Encounter Details Date Type Department Care Team (Late st Contact Info) Description 07/20/2025 Refill [facility] Surgical Oncology at [facility] [address] [place] [phone] Ilia Wall MD [address] [place] [address]. [place] [phone] Idiopathic chronic pancreatitis ([facility]-HCC) Social History Tobacco Use Types Packs/Day Years Used Date Smoking Tobacco: Every Day Cigarettes 1 6.9 Started: 2019 Smokeless Tobacco: Never Alcohol Use Standard Drinks/Week Comments Not Currently 0 (1 standard drink = 0.6 oz pur e alcohol) [facility] Utilities Answer Date Recorded In the past [...] time in the past 12 m [facility], were you homeless or living [...] (CMS-HCC) documented in this encounter Care Teams Ham Rolling Machine Operator Relationship Specialty Start Date End Date Betty Antonio [address] [place] [address] PCP - General 12/14/23 documented as of this encounter
--- OUTSIDE RECORDS SUMMARY | 2025-07-26 22:10 | XMS_ITS | Clinical Summary ---
Author Organization [facility] Address [address] [place] [address] Care Team Providers Care Property Management Bookkeeper Name Role Phone AntonioBetty zamorano [place] FRANK Primary Care Provider [phone] Allergies Active Allergy Reactions Criticality Noted Date [...] time each day. Active cholecalciferol 250 MCG (33736 UT) capsule Take 5,000 Units by mouth [...] place to sleep or slept in a [place] [facility] facility (including now)? No 09/27/2023 CAGE ASSESSMENT Answer [...] drink first t luzmaria in the morning (EYE-DOOR SLINGER) to steady your nerves or to get [...] of 2) 02/15/2008 [facility]-Depression Screening 11/27/2024 11/28/2023 [id number] Vaccine (3 - season) 2025 09/05/2021, 01/10/2021 [...] this topic Medical Devices Implanted Type Area Licensed Appraiser Device Identifier Shelf Expiration Date Model / Serial / Lot Stent Biliary 2.3 X 50mm - [id number] Implanted:Qty: 1 on 02/25/2023 by Flavio Noble MD at [facility]-[id number] 10/04/2025 [id number] / / [id number] Stent Biliary 2.3 X 50mm - [id number] Implanted:Qty: 1 on 02/25/2023 by Flavio Noble MD at [facility]-[id number] 11/12/2025 [id number] / / [id number] Procedures Procedure Name Priority Date/Time Associated Diagnosis [...] Lolly Johnson MD Proceduralist Celso Zimmerman Endo Electric Truck Driver Preprocedure A history and physical has been [...] of bowel preparation was evaluated using the [place] [facility] Bowel Preparation Scale with scores of: right [...] Antibody Negative Negative 04/01/2023 4:45 PM EDT [facility] Blood Venous blood specimen / Unknown Venipuncture / Unknown 04/01/2023 3:49 PM EDT 04/01/2023 4:03 PM EDT Juan Jose Novak MD LAB BLOOD ORDERABLES Final Resul t Performing Organization Address City/State/[facility] Co de Phone Number HEALTHCARE [facility] [address] [place] [address] * Hemoglobin A1c (01/15/2023 5:04 PM EDT) [...] Adults <6.0% Children and Adolescents <7.5% Source: [place] [employer]. Standards of medical care in diabetes,2017. Diabetes Care.2017:40 (suppl 1):S1-S135. HbA1c assay performed by an ion-exchange chromatography method that is certified traceable to the DCCT. us Albert SANCHEZ LAB BLOOD ORDERABLES Final Re sult Performing Organization Address [facility] Co de Phone Number HEALTHCARE LAB [address] [place] [address] from Last 3 Months or Most Recently Relevant to Health Maintenance Insurance [facility] MEDICARE Advance Directives * Full Code [...] Patient has decision-making capacity? Yes Care Teams Property Management Bookkeeper Relationship Specialty Start Date End Date Betty Antonio APRN [address] [place] [address] PCP - General 05/31/21
--- OUTSIDE RECORDS SUMMARY | 2025-07-26 22:10 | XMS_ITS | Encounter Summary ---
Author Organization [place] [address] Care Team Providers Care Supervisor Enrobing Name Role Phone Unavailable Primary Care Provider Unavailabl e Encounter Details Date Type Department Care Team (Late st Contact Info) Description 03/02/2024 Lab Requisition [facility] Palacios [facility]17 Madison Metcalf MD [address] [id number] Acute and subacute infective endocarditis Social History [...] ORDERABLES Final Resu lt Performing Organization Address [facility] Co de Phone Number [facility] [address] [place] [address] * EXTRA GOLD SST (03/02/2024 10:30 AM EDT) Blood VENOUS BLOOD / Unknown 03/02/2024 10:30 AM EDT 03/02/2024 7:12 PM EDT us Madison Metcalf MD CHEMISTRY ORDERABLES Final Resul t Performing Organization Address [facility] de Phone Number [facility] [address] [place] [address] * (ABNORMAL) C-REACTIVE PROTEIN (03/02/2024 10:30 AM EDT) CRP 6.89(H) <=5.00 mg/L 03/02/2024 8:25 PM EDT [facility] Blood VENOUS BLOOD / Unknown 03/02/2024 10:30 AM EDT 03/02/2024 7:12 PM EDT Result Lashell Metcalf MD CHEMISTRY ORDERABLES Final Resul t Performing Organization Address [facility] de Phone Number [facility] [address], [place] [address] * (ABNORMAL) SEDIMENTATION RATE AUTOMATED (03/02/2024 10:30 AM EDT) Sed Rate 39(H) 0 - 30 mm/hr 03/02/2024 7:58 PM EDT [facility] Blood VENOUS BLOOD / Unknown 03/02/2024 10:30 AM EDT 03/02/2024 7:12 PM EDT us Madison Metcalf MD HEMATOLOGY ORDERABLES Final Resu lt [facility] [address] [facility] [facility] , [place] [address] * (ABNORMAL) COMPREHENSIVE METABOLIC PANEL (03/02/2024 10:30 [...] mL/min/1.7 3 m2 03/02/2024 8:25 PM EDT [facility] Comment:Estimated GFR was ca lculated using the CKD-EPIcr (2020) equation refit without race. The equation is recommended by the National Kidney [employer] - [place] [employer] of Nephrology Task Force. Blood VENOUS BLOOD / Unknown 03/02/2024 10:30 AM EDT 03/02/2024 7:12 PM EDT us Madison Metcalf MD CHEMISTRY ORDERABLES Final Resul t [facility], [facility] [address] [facility] , [place] [address] [facility] 1 [place] [address] * (ABNORMAL) CBC WITH DIFF [...] 03/02/2024 7:58 PM EDT [facility] MPV 10.8 8.8 - 12.5 fL 03/02/2024 7:58 PM EDT [facility] Neut Percent 52.7 % 03/02/2024 7:58 PM EDT [facility] Comment:Neutrophils equals s egs plus bands Imm Gran% 0.6 % 03/02/2024 7:58 PM EDT [facility] Comment:Automated count of m etamyelocytes, myelocytes and promyelocytes. Lymph Percent 30.8 % 03/02/2024 7:58 PM EDT [facility] Reeves Percent 5.8 % 03/02/2024 7:58 PM EDT [facility] Eos Percent 8.6 % 03/02/2024 7:58 PM EDT [facility] Baso Percent 1.5 % 03/02/2024 7:58 PM EDT [facility] Neut # 3.8 1.6 - 6.1 x10(3)/[facility] 03/02/2024 7:58 PM EDT [facility] Comment:Neutrophils equals s egs plus bands IMMGRAN# 0.0 0.0 - 0.1 x10(3)/[facility] 03/02/2024 7:58 PM EDT [facility] Comment:Automated count of m etamyelocytes, myelocytes and promyelocytes. An absolute IG <0.1 is reported as 0.0. Lymph # 2.2 1.2 - 3.9 x10(3)/[facility] 03/02/2024 7:58 PM EDT [facility] Reeves # 0.4 0.3 - 0.9 x10(3)/[facility] 03/02/2024 7:58 PM EDT [facility] Eos# 0.6(H) 0.0 - 0.5 x10(3)/[facility] 03/02/2024 7:58 PM EDT [facility] Baso # 0.1 0.0 - 0.1 x10(3)/[facility] 03/02/2024 7:58 PM EDT [facility] Blood VENOUS BLOOD / Unknown 03/02/2024 10:30 AM EDT 03/02/2024 7:12 PM EDT us Madison Metcalf MD HEMATOLOGY ORDERABLES Final Resu lt [facility] [address] [facility] , [address] [place] [id number] documented in this encounter Visit Diagnoses Diagnosis 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
--- OUTSIDE RECORDS SUMMARY | 2025-07-26 22:10 | XMS_ITS | Encounter Summary ---
Author Organization Healthcare Address [address] [place] [address] Care Team Providers Care Reptile Farmer Name Role Phone AntonioBetty zamorano [place] FRANK Primary Care Provider [phone] Encounter Details Date Type Department Care Team (Late st Contact Info) Description 04/04/2023 Billing Only [facility]counter [facility] [address] [place] [address] Luz Jaime, MEDICAL TECHNOLOGIST MICROBIOLOGY [address] [place] [address] Social History Tobacco Use Types [...] drink first t luzmaria in the morning (EYE-DIRECTOR IMMUNOLOGY) to steady your nerves or to get [...] documented as of this encounter Care Teams Reptile Farmer Relationship Specialty Start Date End Date Betty Antonio APRN [address] [place] [address] PCP - General 05/31/21 documented as of this encounter
--- OUTSIDE RECORDS SUMMARY | 2025-07-26 22:10 | XMS_ITS | Clinical Summary ---
Author Organization [employer] ([place], [place], [place], [place], [place]) Address [address] [place] [address] Care Team Providers Care Fraud Manager Name Role Phone Betty Antonio TILE AND MARBLE INSTALLER Primary Care Provider [phone] Allergies Active Allergy Reactions Criticality Noted Date [...] Date Gordo rded Speak language other than Croatian at home Not on file 10/19/2023 Want [...] Advance Directives For more information, please contact: [phone] * Full Code (Latest Code Status on File) Date Activated Date Inactivated Comments 10/19/2023 6:17 PM 10/26/2023 4:31 PM Care Teams Fraud Manager Relationship Specialty Start Date End Date Betty Antonio, TILE AND MARBLE INSTALLER [address] [address] PCP - General Nurse Practitioner 10/19/23
--- OUTSIDE RECORDS SUMMARY | 2025-07-26 22:10 | XMS_ITS | Clinical Summary ---
Author Organization [facility] Address [address] [place] [address] Care Team Providers Care Hot Mill Roller Name Role Phone Betty Antonio Primary Care Provider [phone] Source Comments This information has been disclosed [...] therelease of HIV test results or diagnoses. [id number] Allergies Active Allergy Reactions Criticality Noted [...] [employer] 4238.Julio Winston MSN RN. she/hers. [facility] Infectious Diseases -- OPAT (Outpatient Parenteral Antimicrobial Therapy). [phone]. Problem Noted Date Diagnosed Date Tinnitus of both ears 02/02/2025 Chronic pancreatitis 06/16/2024 Fungemia 04/06/2024 Subacute bacterial endocarditis 02/26/2024 Encounters Date Type Department Care Team Description 07/20/2025 Refill [facility] Surgical Oncology at [address] [address] Ilia Wall MD Idiopathic chronic pancreatitis ([facility]) 06/01/2025 Refill [facility] Surgical Oncology at [address] [address] Ilia Wall MD Idiopathic chronic pancreatitis ([facility]) 05/11/2025 3:00 PM EDT Office Visit [facility] Cardiology at [facility] [address] [facility] [address] [place] [address] Radha Alvarez MD Abnormality of aortic valve (Primary Dx); History of endocarditis; Encounter for smoking cessation counseling 05/11/2025 Telephone [facility] Cardiology at [facility] [address] [facility] [address] [place] [address] Radha Alvarez MD 04/28/2025 Refill [facility] Surgical Oncology at [address] [address] Ilia Wall MD Idiopathic chronic pancreatitis ([facility]) from Last 3 Months [...] drink = 0.6 oz pur e alcohol) [facility] Utilities Answer Date Recorded In [...] any time in the past 12 m [facility], were you homeless or living in a assisted (including now)? No 07/11/2024 Yearly Questionnaire Answer [...] - 0.79 S/CO 12/14/2023 4:24 PM EDT [facility] Serum 12/14/2023 3:11 PM EDT 12/14/2023 3:24 PM EDT us Olivia Estevez MD LAB BLOOD ORDERABLES Final Resul t [facility] [address] [place] [address], [facility] from Last 3 Months or Most Recently Relevant to Health Maintenance Insurance [employer] PPO MEDICARE Advance Directives For more information, please contact: [phone] * Full Code (Latest Code Status on [...] 6:53 PM 02/27/2024 12:09 AM Care Teams Hot Mill Roller Relationship Specialty Start Date End Date Betty Antonio [address] [place] [address] PCP - General 12/14/23
--- OUTSIDE RECORDS SUMMARY | 2025-07-26 22:10 | XMS_ITS | Referral Summary ---
Author Organization [employer] ([place], [place], [place], [place], [place]) Address [address] [place] [address] Care Team Providers Care Outside Machinist Supervisor Name Role Phone Betty Antonio REFRIGERATION PERSON Primary Care Provider Allergies Active Allergy Reactions [...] Date Gordo rded Speak language other than Persian at home Not on file 10/19/2023 Want [...] Advance Directives For more information, please contact: [phone] * Full Code (Latest Code Status on File) Date Activated Date Inactivated Comments 10/19/2023 6:17 PM 10/26/2023 4:31 PM Care Teams Outside Machinist Supervisor Relationship Specialty Start Date End Date Betty Antonio, MONIKA [address] [address] PCP - General Nurse Practitioner 10/19/23
--- OUTSIDE RECORDS SUMMARY | 2025-07-26 22:10 | XMS_ITS | Encounter Summary ---
[facility] Organization [facility] Address [address] [place] [address] Care Team Providers Care Account Assistant Name Role Phone Betty Antonio LIFT SUPERVISOR Primary Care Provider [phone] Reason for Visit * Reason Comments Med Refill Encounter Details Date Type Department Care Team (Late st Contact Info) Description 07/30/2022 Refill [facility] [address] [place] [address] Juan Bonds MD [address] [place] [address] Closed fracture of neck of left femur [...] documented as of this encounter Care Teams Account Assistant Relationship Specialty Start Date End Date Betty Antonio APRN PCP - General Internal Medicine 04/14/22 documented as of this encounter
--- NOTE | 2025-07-26 22:22 | XR_ITS ---
PROCEDURE INFORMATION: Exam: XR Chest Exam date and time: 07/26/2025 10:50 PM Age: 65 years old Clinical indication: Shortness of breath; Additional info: SOB TECHNIQUE: Imaging protocol: Radiologic exam of the chest. Views: 1 view. COMPARISON: CR XR CHEST 2V 07/17/2024 2:11 PM FINDINGS: Lungs: Unremarkable. No consolidation. Pleural spaces: Unremarkable. No pleural effusion. No pneumothorax. Heart/Mediastinum: Unremarkable. No cardiomegaly. Bones/joints: Sternotomy wires. IMPRESSION: No acute findings.
--- NOTE | 2025-07-26 22:22 | CT_ITS ---
PROCEDURE INFORMATION: Exam: CT Abdomen And Pelvis With Contrast Exam date and time: 07/26/2025 10:55 PM Age: 65 years old Clinical indication: Abdominal pain; Additional info: Llq abdominal pain TECHNIQUE: Imaging protocol: Computed tomography of the abdomen and pelvis with contrast. Radiation optimization: All CT scans at this facility use at least one of these dose optimization techniques: automated exposure control; mA and/or kV adjustment per patient size (includes targeted exams where dose is matched to clinical indication); or iterative reconstruction. Contrast material: ISOVUE; Contrast volume: 75 ml; Contrast route: IV; COMPARISON: CT ANGIO ABDOMEN PELVIS 02/25/2025 11:49 AM FINDINGS: Esophagus: The esophagus is normal. Liver: Fatty infiltration of the liver Gallbladder and biliary ducts: There has been a cholecystectomy. Left lower pole renal cyst Pneumobilia with mild biliary ductal dilatation similar to prior exam. Pancreas: Air again noted in the pancreatic similar to the prior exam. Punctate calcifications the pancreatic head similar to the previous exam and likely the sequela of chronic pancreatitis. Spleen: Spleen is normal Adrenal glands: The adrenal glands appear normal. Kidneys and ureters: No hydronephrosis. Stomach and bowel: Retained stool in the colon. Focal narrowing of the descending colon and image 3/76. Anastomotic shaina associated with a small bowel [id number]-ry-uhzu anastomosis image 360. Adjacent to this area is possible thickening of the small bowel image 3/66. Ingested material in the stomach. Appendix: No evidence of appendicitis. Intraperitoneal space: Unremarkable. No free air. No significant fluid collection. Vasculature: The aorta demonstrates moderate atherosclerotic calcification. Visceral arteries are patent. Portal vein, splenic vein, SMV are patent. Lymph nodes: No free air or fluid or adenopathy. Urinary bladder: Unremarkable as visualized. Reproductive: There has been a hysterectomy. Bones/joints: Sternotomy wires. Dick pins fixate both hips. The lumbar spine demonstrates moderate degenerative changes at multiple levels. The L4-L5 thecal sac has a trefoil appearance possibly from disc, facet hypertrophic change ligamentum flavum thickening image 3/57. Soft tissues: Unremarkable. Other findings: Fluid is filled with fluid and debris. Midline surgical scar image 3/80 IMPRESSION: 1. No free air or fluid or adenopathy. 2. Retained stool in the colon 3. Focal narrowing of the descending colon image 3/76. Although this may represent focal spasm colonoscopy recommended further delineate this finding. 4. Anastomotic shaina associated with a small bowel lbit-cw-qogt anastomosis image . 5. Adjacent to this anastomotic area is apparent thickening of the small bowel and possible luminal narrowing image . Capsule endoscopy may be helpful. No free air or fluid or adenopathy.
--- NOTE | 2025-07-26 22:24 | HMH.EDGENADL ---
Discharge Plan Disposition Patient Disposition: Admitted Condition: Fair Clinical Impressions Clinical Impression: Metabolic acidosis, Vertigo, Hypomagnesemia Discharge ED Provider: Sebastian Pack General Adult HPI <Sebastian Pack MD - Last Filed: 07/26/25 23:38> General Chief complaint: Headache Stated complaint: SOA upon walking, headache Time Seen by Provider: 07/26/25 22:12 Mode of Arrival: Wheelchair Source of Information: Patient Description of Symptoms (Recalled from ER Triage Doc. by RN): Patient went to the dr today for dizziness. Labs were done. Patient was called with results that her CO2 was low. Patient presents tonight with headache. History of Present Illness HPI narrative: Caitlyn Mcbride is a 65y female with a history of Whipple procedure, aortic valve replacement, dizziness, tobacco use who presents to the emergency department per PCP recommendations for low carbon dioxide levels. Patient states that she had a routine follow-up with her primary care doctor today and had lab work drawn and received a call tonight and said that her CO2 levels were low and to come to the emergency department. Patient states that she was recently treated for pneumonia and completed a course of antibiotics. She states that she is no longer having a cough, no fevers. She does report some residual shortness of breath but denies any chest pain. She does report some left lower quadrant abdominal pain but denies any dysuria, hematuria, diarrhea, constipation. She states that she has had a couple falls over the last few weeks. She she will get dizzy with standing and tries to move before and is completely resolved, and this causes her to fall. Related Data Home Medications ?Medication ?Instructions ?Recorded ?Confirmed lidocaine 4 % topical patch 1 patch topical DAILYP PRN Back 08/16/23 07/26/25 (Aspercreme (lidocaine)) Pain levetiracetam 500 mg tablet 500 mg PO BID 05/19/24 07/26/25 metoclopramide HCl 10 mg tablet 10 mg PO TID 07/20/24 07/26/25 propranolol 10 mg tablet 10 mg PO TID 02/19/25 07/26/25 pregabalin 300 mg capsule 300 mg PO BID 07/12/25 07/26/25 Previous Rx's ?Medication ?Instructions ?Recorded ondansetron 4 mg disintegrating 4 mg PO Q6H PRN nausea and 02/25/25 tablet vomiting #10 tabs temazepam 15 mg capsule 15 mg PO HS Insomnia 30 days #30 05/05/25 caps buspirone 7.5 mg tablet See Rx Instructions .Route 06/28/25 .COMPLEX #60 tabs pantoprazole 40 mg tablet,delayed See Rx Instructions .Route 06/28/25 release .COMPLEX #180 tabs paroxetine HCl 40 mg tablet See Rx Instructions .Route 07/02/25 .COMPLEX #30 tabs hydroxyzine HCl 50 mg tablet See Rx Instructions .Route 07/06/25 .COMPLEX #90 tabs albuterol sulfate 90 mcg/actuation 2 puff inhalation Q4-6H PRN 07/16/25 aerosol inhaler (Ventolin HFA) shortness of breath or wheezing #8.5 grams triamcinolone acetonide 0.1 % 1 applic topical TID 10 days 07/16/25 topical cream #453.6 grams qdqhot-qweocvin-otsrocb (pork) See Rx Instructions .Route 07/19/25 25,000-79,000-105k unit .COMPLEX #100 caps capsule,del rel (Zenpep) polysaccharide iron complex 180 mg 180 mg PO DAILY #90 caps 07/19/25 iron capsule (Pro Fe) promethazine 25 mg tablet 25 mg PO Q6H PRN nausea and 07/20/25 vomiting #30 tabs methocarbamol 750 mg tablet 750 mg PO HS #30 tabs 07/26/25 Allergies Allergy/AdvReac Type Severity Reaction Status Date / Time levofloxacin (From LEVAQUIN) Allergy Unknown SEIZURES Verified 07/26/25 15:10 [facility] <Sebastian Pack MD - Last Filed: 07/26/25 23:38> [facility] Disclaimer: The information contained in this section may have been updated after the patient was seen, as this information can be updated by other users. Medical History RUQ abdominal pain Nausea Urinary tract infection Oral candidiasis Rib pain on left side Acute pancreatitis Presence of pancreatic duct stent Pancreatic disease Constipation Lower abdominal pain Neuropathy Depression Acute cystitis without hematuria Abdominal pain Abnormal electrocardiogram [ECG] [EKG] Dyspnea Tobacco dependence syndrome History of suicide attempt Mood disorder Tobacco abuse Marijuana abuse Multiple lacunar infarcts History of syncope Elevated blood pressure reading Bradycardia Memory loss Encephalopathy Contusion, hip Syncope and collapse SIRS (systemic inflammatory response syndrome) Gastroesophageal reflux disease Closed right hip fracture Hip fracture Surgical History History of repair of both hip joints History of appendectomy History of laparoscopic cholecystectomy History of hysterectomy History of tonsillectomy History of hip replacement History of aortic valve replacement History of aortic valve replacement with porcine valve Family History Other Diabetes Hypertension Stroke Social History (Updated 07/27/25 @ 02:38 by Juan Amador RN) Smoking Status: Current every day smoker tobacco type: cigarettes packs per day: 1 smoking status start date: 17 yo years smoked: 48 second hand exposure: Yes alcohol intake: never substance use type: other current occupational status: retired Travel in the last 8 weeks?: None household members: family and children housing: house current occupational exposures/hazards: No caffeine: Yes Have you lived/traveled outside [place] in past 30 days?: No Contact w/someone who lives/traveled outside US past 30 days?: No Exposure to someone with infectious disease in past 14 days?: No Do you have a fever (greater than 100.4 F or 38 C)?: No Have you tested positive for COVID-19?: No Exposed to someone with COVID-19 in past 14 days?: No Do you have a sore throat?: No Do you have a cough?: No Do you have any weakness?: No Do you have any diarrhea?: No Are you experiencing any unusual bleeding?: No Do you have any muscle aches/pain?: No Do you have any abdominal pain?: No Are you experiencing loss of taste or smell?: No Other Medical History Have you received the Flu Vaccine for this season: No Have you received the Pneumonia Vaccine: No <Sebastian Pack MD - Last Filed: 07/26/25 23:38> ROS Obtained: Yes Systems reviewed as appropriate & no additional complaints except as documented Physical Exam <Sebastian Pack MD - Last Filed: 07/26/25 23:38> General General appearance: alert and in no apparent distress Head Head exam: atraumatic Eye Eye exam: Present normal appearance ENT ENT exam: Present normal external ear exam Neck Neck exam: Present full ROM Chest Chest inspection: Present symmetric chest wall rise Respiratory Respiratory exam: Present normal lung sounds bilaterally; Absent respiratory distress, wheezes or stridor Cardiovascular Cardiovascular exam: Present regular rate and normal rhythm Abdominal Exam Abdominal exam: Present soft, distention, tenderness (LLQ with guarding) and guarding; Absent rigidity Extremities Exam Extremities exam: Present normal inspection Back Exam Back exam: Present normal inspection Neurological Exam Neurological exam: Present alert and oriented X3 Psychiatric Psychiatric exam: Present normal affect Skin Skin exam: Present warm and dry Medical Decision Making <Sebastian Pack MD - Last Filed: 07/26/25 23:38> Medical Records Screening: Per USPSTF and CDC recommendations, given the prevalence of disease in our region, it is our hospital?s policy to screen for HIV and viral Hepatitis for all patients aged 18 and over and those with ongoing risk factors. [place] Inquiry Pt receiving controlled substance: No Vital Signs: 07/26/25 22:05 07/27/25 02:16 Temperature 97.8 F 98 F Temperature Source Oral Pulse Rate 66 Pulse Rate [Right Radial] 86 Respiratory Rate 18 18 Blood Pressure 133/93 H Blood Pressure [Right Arm] 141/87 H Blood Pressure Mean [Right Arm] 105 Blood Pressure Source Automatic Cuff Blood Pressure Source [Right Arm] Automatic Cuff Blood Pressure Position Sitting Blood Pressure Position [Right Arm] Supine 02 Sat by Pulse Oximetry 99 Oxygen Delivery Method Room Air Room Air Lab Data Lab Results 07/26/25 22:10: WBC 10.2, RBC 5.12, Hgb 15.8, Hct 45.9, MCV 89.6, MCH 30.9, MCHC 34.4, RDW 16.5, Plt Count 193, MPV 9.7, Neut % (Auto) 61.8, Lymph % (Auto) 29.7, Sandoval % (Auto) 4.4, Eos % (Auto) 2.1, Baso % (Auto) 0.7, Neut # (Auto) 6.3, Lymph # (Auto) 3.0, Sandoval # (Auto) 0.5, Eos # (Auto) 0.2, Baso # (Auto) 0.1, VBG pH 7.21 L, VBG pCO2 31.1 L, VBG pO2 70.2 H, VBG HCO3 12.0 L, VBG Total CO2 13.0 L, VBG O2 Saturation 93.4 H, VBG Base Excess -15.9 L, VBG Lactic Acid 1.4, Sodium 140, Potassium 3.4 L, Chloride 112 H, Carbon Dioxide 13 L, Anion Gap 18.4 H, BUN 25 H, Creatinine 1.00, Estimated Creat Clear 47, Estimated GFR 55 L, Est GFR ( Amer) 67, Glucose 109 H D, Calcium 8.9, Magnesium 0.9 L, Total Bilirubin 0.5, AST 34, ALT 19, Alkaline Phosphatase 91, Troponin I < 0.01, NT-Pro-B Natriuret Pep 400 H, Total Protein 7.4, Albumin 4.1, Globulin 3.3 H, Albumin/Globulin Ratio 1.2, Lipase 166, Salicylates < 1.0 L, Acetaminophen < 10 L 07/26/25 22:15: HCV Ab NATALIE w/Rflx PCR Qn Negative, HIV Ag/Ab Combo Qual Negative 07/26/25 22:10 07/26/25 22:10 Orders (Tests/Meds): ED MEDICATIONS Generic Name Dose Route Start Last Admin Trade Name Freq PRN Reason Stop Dose Admin Sodium Chloride 10 ml 07/26/25 23:03 07/26/25 23:05 Sodium Chloride 0.9% 10ml Syr (Rad Only) IV 08/25/25 23:02 10 ml NEEDED PRN Administration Maintain IV Site Discontinued Medications Generic Name Dose Route Start Last Admin Trade Name Freq PRN Reason Stop Dose Admin Magnesium Sulfate 2 gm in 50 mls @ 50 mls/hr 07/26/25 22:44 07/27/25 00:01 Magnesium Sulfate 2gm/50ml Premix IV 07/26/25 23:43 0 mls/hr ONCE ONE Infusion Magnesium Sulfate 2 gm in 50 mls @ 50 mls/hr 07/26/25 23:45 07/27/25 00:01 Magnesium Sulfate 2gm/50ml Premix IV 07/27/25 00:44 50 mls/hr ONCE ONE Administration Lactated Ringer's 1,000 mls @ 999 mls/hr 07/27/25 00:30 07/27/25 00:28 Lactated Ringer's 1000 Ml Bag IV 07/27/25 01:30 999 mls/hr .Q1H1M ENIO Administration Iopamidol 75 ml 07/26/25 23:03 07/26/25 23:04 Iopamidol-370 (76%);100ml Bottle IV 07/26/25 23:04 75 ml ONCE ONE Administration ORDERS Category Date Time Status CT abdomen pelvis w con Stat Cat Scan 07/26/25 22:[address] head/brain wo con Stat Cat Scan 07/27/25 00:46 Completed CXR --portable [XR chest portable] Stat Exams 07/26/25 22:22 Completed Acetaminophen Stat Lab 07/26/25 22:10 Completed BNP [NT Pro Brain Natriuretic Pep.] Stat Lab 07/26/25 22:10 Completed CBC w/Auto Diff [Complete Blood Count Auto Diff] Stat Lab 07/26/25 22:10 Completed CMP [Comprehensive Metabolic Panel] Stat Lab 07/26/25 22:10 Completed HIV Combo Stat Lab 07/26/25 22:15 Completed Hepatitis C Ab Qual. W/ RFX Stat Lab 07/26/25 22:15 Completed Lipase Stat Lab 07/26/25 22:10 Completed Magnesium Stat Lab 07/26/25 22:10 Completed Salicylate Stat Lab 07/26/25 22:10 Completed Troponin I Q3H Lab 07/27/25 01:55 Completed Troponin I Q3H Lab 07/27/25 04:30 Ordered Troponin I Stat Lab 07/26/25 22:10 Completed UA [Urinalysis and Microscopic] Stat Lab 07/26/25 22:22 Ordered VBG [Venous Blood Gas] Stat RT 07/26/25 22:10 Completed Medical Decision Narrative: Caitlyn Mcbride is a 65y female with a history of Whipple procedure, aortic valve replacement, dizziness, tobacco use who presents to the emergency department per PCP recommendations for low carbon dioxide levels. Patient states that she had a routine follow-up with her primary care doctor today and had lab work drawn and received a call tonight and said that her CO2 levels were low and to come to the emergency department. Patient states that she was recently treated for pneumonia and completed a course of antibiotics. She states that she is no longer having a cough, no fevers. She does report some residual shortness of breath but denies any chest pain. She does report some left lower quadrant abdominal pain but denies any dysuria, hematuria, diarrhea, constipation. She states that she has had a couple falls over the last few weeks. She she will get dizzy with standing and tries to move before and is completely resolved, and this causes her to fall. On arrival, patient is hemodynamically stable, afebrile, breathing comfortably on room air with appropriate oxygen saturation. Physical exam, stated above, revealed overall well-appearing female in no distress. She is alert and answering questions appropriately. Cardiopulmonary exam reveals clicking of mechanical aortic valve but otherwise no murmurs or rubs. Abdomen is overall soft and nondistended but she does have left lower quadrant tenderness with guarding. Abdomen is not peritonitic. Differential diagnosis includes, but is not limited to: Diverticulitis, urinary tract infection, ureterolithiasis, obstruction, gastritis, electrolyte derangement, metabolic derangement, renal tubular acidosis, among others. The most morbid conditions were considered and workup was based on these. Workup in the emergency room included: VBG, CBC, lipase, magnesium level, acetaminophen level, troponin, BNP, CMP, salicylate level, lactic acid, chest x-ray, urinalysis, CT Abdo pelvis with contrast, EKG EKG was interpreted by me personally. Normal sinus rhythm. No ST elevation or depression. QTc normal at 412. Chest x-ray interpreted by me personally. No focal consolidation, no pneumothorax, no widened mediastinum, no enlargement of the cardiac silhouette. Unremarkable chest x-ray. See radiology report for details Laboratory studies show no leukocytosis, no anemia, VBG shows an elevated anion gap metabolic acidosis with pH of 7.21, bicarb of 13, pCO2 low at 31. Lactate normal at 1.4. CMP shows mild hypokalemia 3.4, normal sodium 140, anion gap elevated at 18.4, no GEORGE, hypomagnesemia at 0.9 (will replace with 4 g of IV magnesium sulfate), liver enzymes and bilirubin within normal limits. Glucose normal at 109. Initial phone of this is report 01. NT proBNP very mildly elevated at 400. Lipase normal at 166. Negative salicylate and Tylenol level. CT abdomen pelvis is pending at this time. Patient's care was ultimately transferred to the oncoming physician, Dr. Galindo, pending completion of her workup and ultimate disposition. <Wellington Galindo MD - Last Filed: 07/27/25 03:06> Medical Records Medical records reviewed: Yes I reviewed the patient's medical records. Vital Signs: 07/26/25 22:05 07/27/25 02:16 Temperature 97.8 F 98 F Temperature Source Oral Pulse Rate 66 Pulse Rate [Right Radial] 86 Respiratory Rate 18 18 Blood Pressure 133/93 H Blood Pressure [Right Arm] 141/87 H Blood Pressure Mean [Right Arm] 105 Blood Pressure Source Automatic Cuff Blood Pressure Source [Right Arm] Automatic Cuff Blood Pressure Position Sitting Blood Pressure Position [Right Arm] Supine 02 Sat by Pulse Oximetry 99 Oxygen Delivery Method Room Air Room Air Lab Data Lab Results 07/26/25 22:10: WBC 10.2, RBC 5.12, Hgb 15.8, Hct 45.9, MCV 89.6, MCH 30.9, MCHC 34.4, RDW 16.5, Plt Count 193, MPV 9.7, Neut % (Auto) 61.8, Lymph % (Auto) 29.7, Sandoval % (Auto) 4.4, Eos % (Auto) 2.1, Baso % (Auto) 0.7, Neut # (Auto) 6.3, Lymph # (Auto) 3.0, Sandoval # (Auto) 0.5, Eos # (Auto) 0.2, Baso # (Auto) 0.1, VBG pH 7.21 L, VBG pCO2 31.1 L, VBG pO2 70.2 H, VBG HCO3 12.0 L, VBG Total CO2 13.0 L, VBG O2 Saturation 93.4 H, VBG Base Excess -15.9 L, VBG Lactic Acid 1.4, Sodium 140, Potassium 3.4 L, Chloride 112 H, Carbon Dioxide 13 L, Anion Gap 18.4 H, BUN 25 H, Creatinine 1.00, Estimated Creat Clear 47, Estimated GFR 55 L, Est GFR ( Amer) 67, Glucose 109 H D, Calcium 8.9, Magnesium 0.9 L, Total Bilirubin 0.5, AST 34, ALT 19, Alkaline Phosphatase 91, Troponin I < 0.01, NT-Pro-B Natriuret Pep 400 H, Total Protein 7.4, Albumin 4.1, Globulin 3.3 H, Albumin/Globulin Ratio 1.2, Lipase 166, Salicylates < 1.0 L, Acetaminophen < 10 L 07/26/25 22:15: HCV Ab NATALIE w/Rflx PCR Qn Negative, HIV Ag/Ab Combo Qual Negative Orders (Tests/Meds): ED MEDICATIONS Generic Name Dose Route Start Last Admin Trade Name Freq PRN Reason Stop Dose Admin Sodium Chloride 10 ml 07/26/25 23:03 07/26/25 23:05 Sodium Chloride 0.9% 10ml Syr (Rad Only) IV 08/25/25 23:02 10 ml NEEDED PRN Administration Maintain IV Site Discontinued Medications Generic Name Dose Route Start Last Admin Trade Name Buster PRN Reason Stop Dose Admin Magnesium Sulfate 2 gm in 50 mls @ 50 mls/hr 07/26/25 22:44 07/27/25 00:01 Magnesium Sulfate 2gm/50ml Premix IV 07/26/25 23:43 0 mls/hr ONCE ONE Infusion Magnesium Sulfate 2 gm in 50 mls @ 50 mls/hr 07/26/25 23:45 07/27/25 00:01 Magnesium Sulfate 2gm/50ml Premix IV 07/27/25 00:44 50 mls/hr ONCE ONE Administration Lactated Ringer's 1,000 mls @ 999 mls/hr 07/27/25 00:30 07/27/25 00:28 Lactated Ringer's 1000 Ml Bag IV 07/27/25 01:30 999 mls/hr .Q1H1M ENIO Administration Iopamidol 75 ml 07/26/25 23:03 07/26/25 23:04 Iopamidol-370 (76%);100ml Bottle IV 07/26/25 23:04 75 ml ONCE ONE Administration ORDERS Category Date Time Status CT abdomen pelvis w con Stat Cat Scan 07/26/25 22:[address] head/brain wo con Stat Cat Scan 07/27/25 00:46 Completed CXR --portable [XR chest portable] Stat Exams 07/26/25 22:22 Completed Acetaminophen Stat Lab 07/26/25 22:10 Completed BNP [NT Pro Brain Natriuretic Pep.] Stat Lab 07/26/25 22:10 Completed CBC w/Auto Diff [Complete Blood Count Auto Diff] Stat Lab 07/26/25 22:10 Completed CMP [Comprehensive Metabolic Panel] Stat Lab 07/26/25 22:10 Completed HIV Combo Stat Lab 07/26/25 22:15 Completed Hepatitis C Ab Qual. W/ RFX Stat Lab 07/26/25 22:15 Completed Lipase Stat Lab 07/26/25 22:10 Completed Magnesium Stat Lab 07/26/25 22:10 Completed Salicylate Stat Lab 07/26/25 22:10 Completed Troponin I Q3H Lab 07/27/25 01:55 Completed Troponin I Q3H Lab 07/27/25 04:30 Ordered Troponin I Stat Lab 07/26/25 22:10 Completed UA [Urinalysis and Microscopic] Stat Lab 07/26/25 22:22 Ordered VBG [Venous Blood Gas] Stat RT 07/26/25 22:10 Completed Medical Decision Narrative: Caitlyn Mcbride is a 65y female with a history of Whipple procedure, aortic valve replacement, dizziness, tobacco use who presents to the emergency department per PCP recommendations for low carbon dioxide levels. Patient states that she had a routine follow-up with her primary care doctor today and had lab work drawn and received a call tonight and said that her CO2 levels were low and to come to the emergency department. Patient states that she was recently treated for pneumonia and completed a course of antibiotics. She states that she is no longer having a cough, no fevers. She does report some residual shortness of breath but denies any chest pain. She does report some left lower quadrant abdominal pain but denies any dysuria, hematuria, diarrhea, constipation. She states that she has had a couple falls over the last few weeks. She she will get dizzy with standing and tries to move before and is completely resolved, and this causes her to fall. On arrival, patient is hemodynamically stable, afebrile, breathing comfortably on room air with appropriate oxygen saturation. Physical exam, stated above, revealed overall well-appearing female in no distress. She is alert and answering questions appropriately. Cardiopulmonary exam reveals clicking of mechanical aortic valve but otherwise no murmurs or rubs. Abdomen is overall soft and nondistended but she does have left lower quadrant tenderness with guarding. Abdomen is not peritonitic. Differential diagnosis includes, but is not limited to: Diverticulitis, urinary tract infection, ureterolithiasis, obstruction, gastritis, electrolyte derangement, metabolic derangement, renal tubular acidosis, among others. The most morbid conditions were considered and workup was based on these. Workup in the emergency room included: VBG, CBC, lipase, magnesium level, acetaminophen level, troponin, BNP, CMP, salicylate level, lactic acid, chest x-ray, urinalysis, CT Abdo pelvis with contrast, EKG EKG was interpreted by me personally. Normal sinus rhythm. No ST elevation or depression. QTc normal at 412. Chest x-ray interpreted by me personally. No focal consolidation, no pneumothorax, no widened mediastinum, no enlargement of the cardiac silhouette. Unremarkable chest x-ray. See radiology report for details Laboratory studies show no leukocytosis, no anemia, VBG shows an elevated anion gap metabolic acidosis with pH of 7.21, bicarb of 13, pCO2 low at 31. Lactate normal at 1.4. CMP shows mild hypokalemia 3.4, normal sodium 140, anion gap elevated at 18.4, no GEORGE, hypomagnesemia at 0.9 (will replace with 4 g of IV magnesium sulfate), liver enzymes and bilirubin within normal limits. Glucose normal at 109. Initial phone of this is report 01. NT proBNP very mildly elevated at 400. Lipase normal at 166. Negative salicylate and Tylenol level. CT abdomen pelvis is pending at this time. Patient's care was ultimately transferred to the oncoming physician, Dr. Galindo, pending completion of her workup and ultimate disposition. Josie KAMINSKI: I assumed care of the patient at the time of handoff from the prior provider. On reassessment, CT imaging was independently interpreted by me and shows stable pneumobilia, mild constipation, no other emergent pathology. I discussed the case with the patient and her family. She is now reporting that she has been much more vertiginous over the last couple of days after she fell and hit her head very head. As such I ordered a CT scan of the head which was unremarkable. Given she is having such difficulty with ambulation and significant vertigo, in addition to her metabolic acidosis and electrolyte derangements, I think she would benefit from admission for further evaluation. I discussed the case with the hospitalist gift consultant for admission. Critical Care <Sebastian Pack MD - Last Filed: 07/26/25 23:38> Critical Care Time Critical Care Time: No
[2025-07-26 22:28] LABS: Hematocrit 45.9 % (37.0-47.0); Hemoglobin 15.8 g/dL (12.2-16.2); Immature Granulocytes % 1.3 %; Mean Corpuscular HGB Conc 34.4 g/dL (31.8-35.4); Mean Corpuscular Hemoglobin 30.9 pg (27.0-31.2); Mean Corpuscular Volume 89.6 fl (81-99); Nucleated Red Blood Cells % 0 %; Platelet Count 193 K/mm3 (142-424); Red Blood Count 5.12 M/mm3 (4.20-5.40); Red Cell Distribution Width-SD 53.4 fL; White Blood Count 10.2 K/mm3 (4.8-10.8)
[2025-07-26 22:30] LABS: Lactate Venous 1.4 mmol/L (0.4-2.0); VBG HCO3 12.0 mmol/L (23-30); VBG PCO2 31.1 mmol/L (35-51); VBG PH 7.21 mmol/L (7.31-7.41); VBG PO2 70.2 mmol/L (28-40)
[2025-07-26 22:36] LABS: Albumin Level 4.1 g/dl (3.5-5.0); Chloride 112 mmol/L (98-107); Potassium 3.4 mmoL/L (3.5-5.1); Sodium 140 mmol/L (136-145)
[2025-07-26 22:39] LABS: Alanine Aminotransferase 19 U/L (12-78); Albumin/Globulin Ratio 1.2 (1.1-1.8); Alkaline Phosphatase 91 U/L (38-126); Anion Gap 18.4 mEq/L (5-15); Aspartate Amino Transferase 34 U/L (14-36); Bilirubin,Total 0.5 mg/dl (0.2-1.3); Blood Urea Nitrogen 25 mg/dl (7-17); Calcium 8.9 mg/dl (8.4-10.2); Carbon Dioxide 13 mmol/L (22.0-30.0); Creatinine Clearance Estimated 47 mL/min (50-200); Creatinine,Serum 1.00 mg/dl (0.52-1.04); Estimated Glomerular Filt Rate 55 ml/min (>60); GFR (African American) 67 ML/MIN (>60); Globulin 3.3 g/dL (1.3-3.2); Glucose 109 mg/dl (74-100); Lipase 166 U/L (23-300); Total Protein,Serum 7.4 g/dl (6.3-8.2)
[2025-07-26 22:41] LABS: Magnesium 0.9 mg/dl (1.6-2.3)
--- NOTE | 2025-07-26 22:44 | ECG_ITS ---
APPROVED REPORT Exam: Resting ECG HR:81 bpm ECG Measurements Heart Rate 81 AXES VT 187 P 26 QRSd 86 QRS 70 QT 374 T 114 QTc 412 Conclusion SINUS RHYTHM WITH MARKED SINUS ARRHYTHMIA NONSPECIFIC ST & T-WAVE ABNORMALITY BORDERLINE ECG Electronically signed by : NATANAEL HIDALGO, 07/29/2025 13:54:25
[2025-07-26 22:48] LABS: NT Pro Brain Natriuretic Pep. 400 pg/mL (0-125)
[2025-07-26 22:54] LABS: Troponin I < 0.01 ng/ml (0.00-0.034)
[2025-07-26] MEDS: IOPAMIDOL-370 (76%);100ML BOTTLE 75 ML IV (23:04)
[2025-07-26] MEDS: MAGNESIUM SULFATE IN WATER 2 GM/50 ML PIGGYBACK IV (23:05)
[2025-07-26] MEDS: SODIUM CHLORIDE 0.9% 10ML SYR (RAD ONLY) 10 ML IV (23:05)
[2025-07-26 23:18] LABS: Acetaminophen < 10 ug/ml (10-30); Salicylate < 1.0 mg/dL (2.0-20.0)
[2025-07-26 23:20] LABS: Hepatitis C Ab Qual. W/ RFX NEGATIVE (Negative)
[2025-07-27] VITALS (9 sets, daily range): BP systolic 93–157; BP diastolic 53–93; PULSE 60–72; RESP 16–20; TEMP 36.4–36.7; O2SAT 93–100; BMI 22.2
[2025-07-27] MEDS: MAGNESIUM SULFATE IN WATER 2 GM/50 ML PIGGYBACK IV (00:01)
[2025-07-27] MEDS: LACTATED RINGERS 1000ML 1,000 ML 999 ML IV (00:28)
--- NOTE | 2025-07-27 00:46 | CT_ITS ---
PROCEDURE INFORMATION: Exam: CT Head Without Contrast Exam date and time: 07/27/2025 12:57 AM Age: 65 years old Clinical indication: Pain; Headache; Additional info: Fall 2 days ago, worsening vertigo TECHNIQUE: Imaging protocol: Computed tomography of the head without contrast. Radiation optimization: All CT scans at this facility use at least one of these dose optimization techniques: automated exposure control; mA and/or kV adjustment per patient size (includes targeted exams where dose is matched to clinical indication); or iterative reconstruction. COMPARISON: CT HEAD/BRAIN WO CON 07/13/2025 8:37 PM FINDINGS: Brain: No evidence for intracranial hemorrhage, mass lesions or acute stroke. Mild small-vessel ischemic change periventricular white matter. Cerebral ventricles: No ventriculomegaly. Pituitary gland and sella: Negative Paranasal sinuses: Visualized sinuses are unremarkable. No fluid levels. Mastoid air cells: Visualized mastoid air cells are well aerated. Orbital cavities: Negative. Bones: Unremarkable. No acute fracture. Soft tissues: Unremarkable. Vasculature: Negative. IMPRESSION: 1. No evidence for intracranial hemorrhage, mass lesions or acute stroke. 2. Mild small-vessel ischemic change periventricular white matter.
--- NOTE | 2025-07-27 01:28 | PC.NURSE ---
records section supervisor notified of admission
--- NOTE | 2025-07-27 01:53 | PC.NURSE ---
Called report to Juan VALENTINE for admission
[2025-07-27 02:44] LABS: Troponin I < 0.01 ng/ml (0.00-0.034)
[2025-07-27] MEDS: LACTATED RINGERS 1000ML 1,000 ML 100 ML IV ×2 (04:25→15:20)
--- NOTE | 2025-07-27 04:32 | P.HP_ITS ---
<Statement entered by Bryan Kitchen MD - 07/27/25 15:09> Rounded on patient after nurse practitioner. Personally examined and interviewed patient. Agree with exam findings and care plan as documented. White count hemoglobin remained normal this morning at 10.0 and 15.8 respectively. Blood gas obtained last night showed VBG pH of 7.2, pCO2 of 31 which is low and bicarb low at 12. Findings most consistent with metabolic acidosis. Concern for renal tubular acidosis. Sodium 132, chloride 113. Potassium 3.0 on morning labs. Bicarb 10 on morning labs. Anion gap normal at 12. Magnesium replaced quite well at 4.1 this morning. Obtaining urine studies on electrolytes. Urine sodium this morning of 73, urine urea nitrogen 595. - Urine pH consistently 6.0 on urinalysis at time of admission as well as this morning. Patient denies significant diarrhea history. 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 Will initiate sodium bicarb and at 1300 mg 3 times a day. Monitor for improvement with repeat BMP, magnesium, CBC ordered for the morning. If patient corrects appropriately, plan to discharge home with referral to nephrology as an outpatient for further management. - Urine osmolality and chloride pending History of Present Illness *Admission Date: 07/27/25 *Reason for visit:: Abnormal lab finding *History of present illness: Caitlyn Mcbride is a 65-year-old female with past medical history significant for vertigo, TIA, pancreatitis, frequent falls, GERD, mood disorder, tobacco use, history of aortic valve replacement with porcine valve, hip replacement, appendectomy, laparoscopic cholecystectomy. Presents to [facility] secondary to abnormal laboratory finding per PCP CO2 of 7. Recommend the patient follow-up to the emergency department for further evaluation and treatment. Patient reported recent diagnosis of pneumonia with nausea and vomiting. States symptoms from pneumonia subsided. Nausea vomiting, last occurrence last week. Denies any further symptoms. Reported occasional vertigo but this has been an ongoing intermittent issue for the patient. At times complicates ADLs/ambulation due to episodic vertigo. Currently denies symptoms of dizziness/vertigo. Denies recent fall or injury. Repeat CO2 within the emergency department revealed improvement from initial finding 7, now 13. Venous blood gas obtained ED pH 7.21. Notable electrolyte abnormality, low magnesium level of 0.9, mild decrease in potassium of 3.4. Patient is without complaint or distress. Alert and oriented x 3. Reports eating and drinking adequately. Currently resides with her daughter who assists with ADLs. Denies current/recent diarrhea, respiratory ailments, shortness of breath, cough, fever, chest pain, abdominal pain. Initial ED workup included laboratory studies and imaging. Venous blood gas 7.21, VBG pCO2 31, VBG pCO2 70.2, VBG HCO3 12, VBG total CO2 13, VBG O2 93.4, potassium 3.4, chloride 112, carbon dioxide 13, anion gap 18.4, BUN 25, GFR 55, magnesium 0.9, BNP 400. Imaging study obtained CT head, I personally reviewed, without intracranial hemorrhage mass lesions or acute stroke. Mild small vessel ischemic changes periventricular white matter. Received 4 mg magnesium sulfate in the emergency department. Upon bedside assessment patient is without any acute distress. Hemodynamically stable. Assisted patient to bathroom. Ambulating adequately although notable weakness. Denies current dizziness/vertigo. Alert and oriented x 3. [facility] Disclaimer: The information contained in this section may have been updated after the patient was seen, as this information can be updated by other users. Medical History (Updated 07/27/25 @ 06:19 by Rani Hancock APRN) Tobacco dependence syndrome RUQ abdominal pain Nausea Urinary tract infection Oral candidiasis Rib pain on left side Acute pancreatitis Presence of pancreatic duct stent Pancreatic disease Constipation Lower abdominal pain Neuropathy Depression Acute cystitis without hematuria Abdominal pain Abnormal electrocardiogram [ECG] [EKG] Dyspnea History of suicide attempt Mood disorder Tobacco abuse Marijuana abuse Multiple lacunar infarcts History of syncope Elevated blood pressure reading Bradycardia Memory loss Encephalopathy Contusion, hip Syncope and collapse SIRS (systemic inflammatory response syndrome) Gastroesophageal reflux disease Closed right hip fracture Hip fracture Surgical History (Updated 07/27/25 @ 06:16 by Rani Hancock APRN) History of repair of both hip joints History of appendectomy History of laparoscopic cholecystectomy History of hysterectomy History of tonsillectomy History of hip replacement History of aortic valve replacement History of aortic valve replacement with porcine valve Family History Other Diabetes Hypertension Stroke Social History Smoking Status: Current every day smoker tobacco type: cigarettes packs per day: 1 smoking status start date: 17 yo years smoked: 48 second hand exposure: Yes alcohol intake: never substance use type: other current occupational status: retired Travel in the last 8 weeks?: None household members: family and children housing: house current occupational exposures/hazards: No caffeine: Yes Other Medical History Have you received the Flu Vaccine for this season: Yes Have you received the Pneumonia Vaccine: No Review of Systems Review of Systems Review of systems:: pertinent systems reviewed and negative unless documented below Constitutional Constitutional: Reports system reviewed and no additional complaints, except as documented and Reports as per HPI Eyes Eyes: Reports system reviewed and no additional complaints, except as documented and Reports as per HPI ENT Ears, Nose, Mouth, and Throat: Reports system reviewed and no additional complaints, except as documented and Reports as per HPI *Cardiovascular Cardiovascular: Reports system reviewed and no additional complaints, except as documented and Reports as per HPI *Respiratory Respiratory: Reports system reviewed and no additional complaints, except as documented and Reports as per HPI *Gastrointestinal Gastrointestinal: Reports as per HPI and Reports vomiting *Genitourinary Genitourinary: Reports system reviewed and no additional complaints, except as documented and Reports as per HPI *Musculoskeletal Musculoskeletal: Reports system reviewed and no additional complaints, except as documented, Reports as per HPI, Reports limited range of motion and Reports muscle weakness Integumentary/Breasts Skin/Breast: Reports system reviewed and no additional complaints, except as d ocumented and Reports as per HPI *Neurologic Neurologic: Reports system reviewed and no additional complaints, except as documented and Reports as per HPI Psychiatric Psychiatric: Reports system reviewed and no additional complaints, except as documented and Reports as per HPI Endocrine Endocrine: Reports system reviewed and no additional complaints, except as documented and Reports as per HPI Hematologic/Lymphatic Hematologic/Lymphatic: Reports system reviewed and no additional complaints, except as documented and Reports as per HPI Allergic/Immunologic Allergic/Immunologic: Reports system reviewed and no additional complaints, except as documented and Reports as per HPI Meds Home Medications and Allergies Home Medications ?Medication ?Instructions ?Recorded ?Confirmed ?Type propranolol 10 mg tablet 10 mg PO TID 02/19/25 History temazepam 15 mg capsule 15 mg PO HS Insomnia 30 days #30 05/05/25 07/27/25 Rx caps pregabalin 300 mg capsule 300 mg PO BID 07/12/2507/27 History albuterol sulfate 90 mcg/actuation 2 puff inhalation Q 4-6H PRN 07/16/25 07/27/25 Rx aerosol inhaler (Ventolin HFA) shortness of breath or wheezing #8.5 grams polysaccharide iron complex 180 mg 180 mg PO DAILY #90 caps 07/19/25 07/27/25 Rx iron capsule (Pro Fe) promethazine 25 mg tablet 25 mg PO Q6H PRN nausea and 07/20/25 07/27/25 Rx vomiting #30 tabs buspirone 7.5 mg tablet 7.5 mg PO BID 07/27/2507/27 History hydroxyzine HCl 50 mg tablet 50 mg PO TIDP PRN Anxiety 07/27/25 07/27/25 History donqwm-thzuuqdf-ixqvwhd (pork) 1 cap PO TIDWMEAL 07/2707/27/25 History 25,000-79,000-105k unit capsule,del rel (Zenpep) pantoprazole 40 mg tablet,delayed 40 mg PO DAILY 07/2707/27/25 History release paroxetine HCl 40 mg tablet 40 mg PO DAILY 07/27/25 History New Prescriptions to Start Prescriptions: Allergies Allergy/AdvReac Type Severity Reaction Status Date / Time [facility] Allergy Unknown SEIZURES Verified 07/26/25 15:10 Exam Data for Last 24 hours Vital signs and Labs for Last 24 Hours: Temp Pulse Resp BP Pulse Ox O2 Del Method 98 F 67 18 157/92 H 94 L Room Air 07/27/25 02:16 07/27/25 02:35 07/27/25 02:35 07/27/25 02:35 07/27/25 02:35 07/27/25 02:35 Laboratory Results - last 24 hr 07/26/25 22:10: WBC 10.2, RBC 5.12, Hgb 15.8, Hct 45.9, MCV 89.6, MCH 30.9, MCHC 34.4, RDW 16.5, Plt Count 193, MPV 9.7, Neut % (Auto) 61.8, Lymph % (Auto) 29.7, [place] % (Auto) 4.4, Eos % (Auto) 2.1, Baso % (Auto) 0.7, Neut # (Auto) 6.3, Lymph # (Auto) 3.0, [place] # (Auto) 0.5, Eos # (Auto) 0.2, Baso # (Auto) 0.1, VBG pH 7.21 L, VBG pCO2 31.1 L, VBG pO2 70.2 H, VBG HCO3 12.0 L, VBG Total CO2 13.0 L, VBG O2 Saturation 93.4 H, VBG Base Excess -15.9 L, VBG Lactic Acid 1.4, Sodium 140, Potassium 3.4 L, Chloride 112 H, Carbon Dioxide 13 L, Anion Gap 18.4 H, BUN 25 H, Creatinine 1.00, Estimated Creat Clear 47, Estimated GFR 55 L, Est GFR ( Amer) 67, Glucose 109 H D, Calcium 8.9, Magnesium 0.9 L, Total Bilirubin 0.5, AST 34, ALT 19, Alkaline Phosphatase 91, Troponin I < 0.01, NT-Pro-B Natriuret Pep 400 H, Total Protein 7.4, Albumin 4.1, Globulin 3.3 H, Albumin/Globulin Ratio 1.2, Lipase 166, Salicylates < 1.0 L, Acetaminophen < 10 L 07/26/25 22:15: HCV Ab NATALIE w/Rflx PCR Qn Negative, HIV Ag/Ab Combo Qual Negative 07/27/25 01:55: Troponin I < 0.01 I & O for Last 24 hours: Intake & Output 07/24/25 07/25/25 07/26/25 07/27/25 23:59 23:59 23:59 23:59 Intake Total 46.667 / 46.667 Balance 46.667 / 46.667 Weight 54.885 kg Constitutional Constitutional: no acute distress *Routine HEENT Exam Head: Present normocephalic and atraumatic Eye: Present EOMI, PERRL and normal accommodation ENT: Present mucous membranes moist *Routine Neck Exam Neck: Present supple *Routine Respiratory Exam Respiratory: Present normal respiratory effort and able to speak in complete sentences *Routine Cardiovascular Exam Cardiovascular: Present RRR, Normal S1 and Normal S2 *Routine Abdominal Exam Abdominal: Present soft and normoactive bowel sounds *Routine Rectal Exam Rectal:: deferred *Routine Genitalia Exam Genitalia:: deferred *Routine Extremities Exam Extremities: Present full ROM, pulses intact and normal capillary refill Routine Back/Spine/Pelvis Exam Back/Spine: Present full ROM *Routine Skin Exam Skin: Present intact *Routine Neurological Exam Neurological: Present alert, oriented X3 and CN II-XII intact Routine Psychiatric Exam Psychiatric: Present normal affect and normal thought process Assessment and Plan *Assessment and plan (1) Metabolic acidosis: Status: Acute Category: Medical Code(s): E87.20 - Acidosis, unspecified (2) Electrolyte depletion: Status: Acute Category: Medical Code(s): E87.8 - Other disorders of electrolyte and fluid balance, not elsewhere classified (3) Hypomagnesemia: Status: Acute Category: Medical Code(s): E83.42 - Hypomagnesemia (4) Weakness of lower extremity: Status: Acute Qualifiers: Laterality: bilateral Qualified Code(s): R29.898 - Other symptoms and signs involving the musculoskeletal system Category: Medical Code(s): R29.898 - Other symptoms and signs involving the musculoskeletal system (5) Frequent falls: Status: Acute Category: Medical Code(s): R29.6 - Repeated falls (6) Vertigo: Status: Acute Category: Medical Code(s): R42 - Dizziness and giddiness (7) History of heart valve replacement with porcine valve: Status: Acute Category: Surgical Code(s): Z95.3 - Presence of xenogenic heart valve (8) Concussion: Status: Acute Qualifiers: Loss of consciousness presence/duration: unknown LOC status Category: Medical Code(s): S06.0XAA - Concussion with loss of consciousness status unknown, initial encounter Plan 1. Metabolic acidosis: Venous blood gas noted pH 7.2, outpatient laboratory findings CO2 of 7, repeat within the emergency department 13. Per chart review appears to be chronically low although notable repeat level not quite at baseline. Recent gastrointestinal and respiratory illness, possible contributing factor. Recent addition of Phenergan due gastrointestinal symptoms. Patient without acute distress, alert and oriented x 3. Hold sedative medications. IV fluid for hydration, repeat follow labs in the morning. 2. Electrolyte depletion/hypomagnesemia/hypokalemia: Magnesium 0.9, received 4 g magnesium sulfate in the emergency department, continue to replace per protocol/follow trend. Potassium 3.4 replace per protocol-> Decrease likely correlating with above with GI loss per recent gastrointestinal illness. continuous cardiac monitoring. 3. Vertigo/status post concussion/frequent falls: Occurred 07/13-> CT head at the time of occurrence was without any acute finding. She developed mild headache with noted intermittent headache and dizziness. Patient currently without any complaints of dizziness and vertigo. CT head today was without any acute finding. Notable increased weakness upon ambulating. Reports use of cane for ambulation assistance. Fall precautions, will consult PT OT for evaluation. 4. Heart valve replacement with porcine valve: Follows with Dr. Spann-missed appointment May, follow-up visit in 3 months for general checkup. DVT prophylaxis: SCDs Regular diet I personally discussed the management of this patient with the emergency department provider. Agree with admission with findings of metabolic acidosis, electrolyte depletion. Plan with repleting electrolytes, IV fluid hydration, repeat CMP, cardiac monitoring.
[2025-07-27 06:50] LABS: Troponin I < 0.01 ng/ml (0.00-0.034)
[2025-07-27] MEDS: BUSPIRONE HCL 5 MG TABLET 7.5 MG PO (08:14)
[2025-07-27 08:36] LABS: Alanine Aminotransferase 16 U/L (12-78); Albumin Level 3.4 g/dl (3.5-5.0); Albumin/Globulin Ratio 1.2 (1.1-1.8); Alkaline Phosphatase 104 U/L (38-126); Anion Gap 12.0 mEq/L (5-15); Aspartate Amino Transferase 25 U/L (14-36); Bilirubin,Total 0.4 mg/dl (0.2-1.3); Blood Urea Nitrogen 23 mg/dl (7-17); Calcium 8.2 mg/dl (8.4-10.2); Chloride 113 mmol/L (98-107); Creatinine Clearance Estimated 47 mL/min (50-200); Creatinine,Serum 0.80 mg/dl (0.52-1.04); Estimated Glomerular Filt Rate 72 ml/min (>60); GFR (African American) 87 ML/MIN (>60); Globulin 2.8 g/dL (1.3-3.2); Glucose 100 mg/dl (74-100); Magnesium 4.1 mg/dl (1.6-2.3); Phosphorous 3.9 mg/dl (2.5-4.5); Sodium 132 mmol/L (136-145); Total Protein,Serum 6.2 g/dl (6.3-8.2)
[2025-07-27 08:45] LABS: Carbon Dioxide 10 mmol/L (22.0-30.0); Potassium 3.0 mmoL/L (3.5-5.1)
[2025-07-27 09:11] LABS: Microscopic, Urine URINE MICROSCOPIC (MICROSCOPIC)
[2025-07-27 09:15] LABS: Bilirubin,Urine Negative (Negative); Color,Urine YELLOW (Yellow); Glucose,Urine (UA) Negative (Negative); Ketones,Urine TRACE (Negative); Leukocyte Esterase,Urine Negative (Negative); PH,Urine 6.0 (5.0-8.5); Protein,Urine TRACE (Negative); Specific Gravity, Urine 1.020 (1.005-1.030); Urobilinogen,Urine 0.2 EU/dl (0.2)
--- NOTE | 2025-07-27 09:37 | [facility].OTEV ---
OT Evaluation Rehab OT IP Evaluation Start: 07/27/25 06:13 Freq: ONCE Status: Active Protocol: Document 07/27/25 09:28 [facility] (Rec: 07/27/25 09:37 [facility] [id number]) Rehab OT IP Assessment Subjective History Pt oriented x 3 on arrival. Pt agreeable to engage in therapy evaluation. Pt admitted on 07/27/25 due to Acidosis and abnormal lab reading. History and physical: Caitlyn Mcbride is a 65-year-old female with past medical history significant for vertigo, TIA, pancreatitis, frequent falls, GERD, mood disorder, tobacco use, history of aortic valve replacement with porcine valve, hip replacement, appendectomy, laparoscopic cholecystectomy. Presents to [facility] secondary to abnormal laboratory finding per PCP CO2 of 7. Recommend the patient follow -up to the emergency department for further evaluation and treatment. Patient reported recent diagnosis of pneumonia with nausea and vomiting. States symptoms from pneumonia subsided. Nausea vomiting, last occurrence last week. Denies any further symptoms. Reported occasional vertigo but this has been an ongoing intermittent issue for the patient. At times complicates ADLs/ambulation due to episodic vertigo. Currently denies symptoms of dizziness/vertigo. Denies recent fall or injury. Repeat CO2 within the emergency department revealed improvement from initial finding 7, now 13. Venous blood gas obtained ED pH 7. 21. Notable electrolyte abnormality, low magnesium level of 0.9, mild decrease in potassium of 3.4. Patient is without complaint or distress. Alert and oriented x 3. Reports eating and drinking adequately. Currently resides with her daughter who assists with ADLs. Denies current/recent diarrhea, respiratory ailments, shortness of breath, cough, fever, chest pain , abdominal pain. Initial ED workup included laboratory studies and imaging. Venous blood gas 7.21, VBG pCO2 31, VBG pCO2 70.2, VBG HCO3 12, VBG total CO2 13, VBG O2 93.4, potassium 3.4, chloride 112, carbon dioxide 13, anion gap 18.4, BUN 25, GFR 55, magnesium 0.9, BNP 400. Imaging study obtained CT head, I personally reviewed, without intracranial hemorrhage mass lesions or acute stroke. Mild small vessel ischemic changes periventricular white matter. Received 4 mg magnesium sulfate in the emergency department. Upon bedside assessment patient is without any acute distress. Hemodynamically stable. Assisted patient to bathroom. Ambulating adequately although notable weakness. Denies current dizziness/vertigo. Alert and oriented x 3. Subjective Pt reports prior to being in the hospital she lived with her family (children). Pt claims normally she is independent with all ADLs such as feeding, bathing, and dressing. Pt is dependent upon family for completion of all IADLS. Pt uses a rolling walker during functional transfers. Pt lives in a 2 story home requiring 13 steps to get to her room on second floor. Pt is normally able to climb stairs without any difficulty. Pt no longer drives. Family is home with her majority of the time for assistance as needed. Objective Patient Orientation Person,Place,Birthday Right Upper WFL Extremity Gross ROM Left Upper Extremity WFL Gross ROM Bed Mobility bed mobility-scooting,bed mobility - supine/sit Assist Level Supervision/Stand by Transfer Training Sit/Stand Transfer Assist Level Contact Guard/Hand Hold Performing Toilet Standby Assistance Hygiene Ability Overall Commode/ Contact Guard,Minimal Assistance Toilet Transfer Ability Commode/Toilet Sit to/from Ambulatory Transfer Technique Rehab OT IP prob,goals,plan Problems Date of Evaluation: 07/27/25 OT IP Problems Bed Mobility,Transfers,Balance,Self care,Safety Rehab Potential Rehab Potential Good Equipment Needs Assistive Devices Rolling / Wheeled Walker Plan OT intervention Plan Bed Mobility,Transfers,Balance,Self care,Safety, Therapeutic Exercise OT Plan Frequency Daily Duration LOS Discharge Goals Bed Mobility Ability Standby Assistance Sit to Stand Chair Supervision/Stand by Transfer Ability Chair Transfer Supervision/Stand by Ability Chair Transfer Sit to/from Ambulatory Technique Chair Transfer Rolling Walker Assistive Devices Lower Body Dressing Contact Guard Ability Upper Body Dressing Standby Assistance Ability Performing Toilet Standby Assistance Hygiene Ability Overall Commode/ Standby Assistance Toilet Transfer Ability Commode/Toilet Sit to/from Ambulatory Transfer Technique Discharge Plan OT Discharge Plan Pt appears to be close to her baseline with functional transfers and ADL independence. Pt can return home with her family once she is medically stable per physician. Therapist does recommend HH OT evaluation upon returning home for evaluation of home adaptations needed. Pt agreeable with this plan. Eval Complexity Eval Charge Codes 69880 - Moderate Complexity PHYSICIAN CERTIFICATION: I certify the specified therapy services for Caitlyn Chavez Doolin are required, authorized, and reviewed every 30 days.
[2025-07-27] MEDS: POTASSIUM CHLORIDE 20MEQ TAB 40 MEQ PO ×3 (09:38→16:59)
[2025-07-27 10:28] LABS: Bacteria,Urine Trace /lpf; Squamous Epithelial Cell,Urine Occasional #/hpf (0-5); WBC,Urine Occasional #/hpf (0-3)
--- NOTE | 2025-07-27 10:42 | HMH.PTEV ---
Physical Therapy Evaluation Rehab PT IP Evaluation Start: 07/27/25 06:13 Freq: ONCE Status: Active Protocol: Document 07/27/25 10:38 QUINTIN (Rec: 07/27/25 10:42 QUINTIN [id number]) Subjective/History History History Per H&P: Caitlyn Mcbride is a 65-year-old female with past medical history significant for vertigo, TIA, pancreatitis, frequent falls, GERD, mood disorder, tobacco use, history of aortic valve replacement with porcine valve, hip replacement, appendectomy, laparoscopic cholecystectomy. Presents to [facility] secondary to abnormal laboratory finding per PCP CO2 of 7. Recommend the patient follow -up to the emergency department for further evaluation and treatment. Patient reported recent diagnosis of pneumonia with nausea and vomiting. States symptoms from pneumonia subsided. Nausea vomiting, last occurrence last week. Denies any further symptoms. Reported occasional vertigo but this has been an ongoing intermittent issue for the patient. At times complicates ADLs/ambulation due to episodic vertigo. Currently denies symptoms of dizziness/vertigo. Denies recent fall or injury. Repeat CO2 within the emergency department revealed improvement from initial finding 7, now 13. Venous blood gas obtained ED pH 7. 21. Notable electrolyte abnormality, low magnesium level of 0.9, mild decrease in potassium of 3.4. Patient is without complaint or distress. Alert and oriented x 3. Reports eating and drinking adequately. Currently resides with her daughter who assists with ADLs. Denies current/recent diarrhea, respiratory ailments, shortness of breath, cough, fever, chest pain , abdominal pain. Initial ED workup included laboratory studies and imaging. Venous blood gas 7.21, VBG pCO2 31, VBG pCO2 70.2, VBG HCO3 12, VBG total CO2 13, VBG O2 93.4, potassium 3.4, chloride 112, carbon dioxide 13, anion gap 18.4, BUN 25, GFR 55, magnesium 0.9, BNP 400. Imaging study obtained CT head, I personally reviewed, without intracranial hemorrhage mass lesions or acute stroke. Mild small vessel ischemic changes periventricular white matter. Received 4 mg magnesium sulfate in the emergency department. Upon bedside assessment patient is without any acute distress. Hemodynamically stable. Assisted patient to bathroom. Ambulating adequately although notable weakness. Denies current dizziness/vertigo. Alert and oriented x 3. Subjective Subjective Pt reports prior to being in the hospital she lived with her family (children). Pt claims normally she is independent with all mobility . Pt owns a RW. Pt lives in a 2 story home requiring 14 steps to get to her room on second floor. Pt is normally able to climb stairs without any difficulty. Pt no longer drives. Family is home with her majority of the time for assistance as needed. New diagnosis of No cancer in past 12 months? [facility] How much help from another person do you currently need... Turning from your None back to your side while in a flat bed without using bedrails? Moving from lying on None back to sitting on the side of a flat bed without using bedrails? Moving to and from a None bed to a chair ( including a wheelchair)? Standing up from a None chair using your arms? (e.g., wheelchair, bedside chair) Walking in hospital A little room? Climbing 3-5 steps A little with a railing? Mobility Score 22 Mobility Level [place] [address] Walk 25 feet or more Mobility Calculator Rehab PT IP Eval Objective Appearance Patient Behavior Appropriate,Cooperative Patient Orientation Person,Place Difficulty following none instructions Speech Pattern Clear Ambulation Patient Able to Yes Ambulate Ambulation Observation IP General Gait Narrow Based Gait Pattern Observation Ambulation Distance 15 (feet) Ambulation Assistive None Device Ambulation Ability Contact Guard/Hand Hold Balance Ability to Arise Able, uses arms to help Sitting Balance Steady, safe Standing Balance Steady, wide stance Dynamic Sitting Good Balance Ability Dynamic Standing Fair Balance Ability Transfers Bed Transfer Ability Independent Sit to Stand Bed Minimal x 1 (25% assist) Transfer Ability Rehab PT IP prob,goals,plan Problems Date of Evaluation: 07/27/25 PT IP Problems Transfers,Gait,Balance,Safety Rehab Potential Rehab Potential Good Plan PT Intervention Plan Transfers,Gait,Balance,Safety,Therapeutic Exercise PT Plan Frequency Daily Duration Goals Met Discharge Goals Bed Transfer Ability Independent Sit to Stand Chair Independent Transfer Ability Ambulation Assistive Rolling Walker Device Ambulation Distance 150 (feet) Discharge Plan PT Discharge Plan Initial physical therapy evaluation performed. Patient presents below baseline at this time in functional mobility, transfers, gait, and strength. Pt would benefit from skilled PT while at [facility] to prevent further functional decline and maximize safety with mobility. Pt most appropriate to d/c home when deemed medically necessary d/t current level of mobility and family support. PT recommending home health PT services to address deficits. Eval Complexity Eval Charge Codes 19524 - Moderate Complexity PHYSICIAN CERTIFICATION: I certify the specified therapy services for Caitlyn Mcbride are required, authorized, and reviewed every 30 days.
--- OUTSIDE RECORDS SUMMARY | 2025-07-27 11:47 | XMS_ITS | Encounter Summary ---
Author Organization Address [facility] [place] [address] Care Team Providers Care Psychiatric Specialist Name Role Phone Betty Antonio Primary Care Provider [phone] Source Comments This information has been disclosed [...] release of HIV test results or diagnoses. [id number] Health Encounter Details Date Type Department Care Team (Late st Contact Info) Description 04/10/2024 Ophth Exam [facility] Ophthalmology at [address] [place] [phone] Elan Cates MD [address] [place] [address] Social History Tobacco Use Types Packs/Day Years Used Date Smoking Tobacco: Every Day Cigarettes 1 6.9 Started: 2019 Smokeless Tobacco: Never Alcohol Use Standard Drinks/Week Comments Not Currently 0 (1 standard drink = 0.6 oz pur e alcohol) [facility] Utilities Answer Date Recorded In the [...] any time in the past 12 m [facility], were you homeless or living in a senior living (including now)? No 04/04/2024 Yearly Questionnaire Answer [...] on filedocumented in this encounter Care Teams Psychiatric Specialist Relationship Specialty Start Date End Date Betty Antonio [facility] [place] [address] PCP - General 12/14/23 documented as of this encounter
--- OUTSIDE RECORDS SUMMARY | 2025-07-27 11:47 | XMS_ITS | Encounter Summary ---
Author Organization [facility] Address [facility] [place] [address] Care Team Providers Care Cyber Incident Responder Name Role Phone Betty Antonio Primary Care Provider [phone] Source Comments This information has been disclosed [...] release of HIV test results or diagnoses. [id number] Health Reason for Visit * Reason Comments Medication Refill Encounter Details Date Type Department Care Team (Late st Contact Info) Description 06/01/2025 Refill [facility] Surgical Oncology at [facility] [address] [place] [phone] Ilia Wall MD [address] [place] [address]. [place] [phone] Idiopathic chronic pancreatitis ([facility]) Social History Tobacco Use Types Packs/Day Years Used Date Smoking Tobacco: Every Day Cigarettes 1 6.9 Started: 2019 Smokeless Tobacco: Never Alcohol Use Standard Drinks/Week Comments Not Currently 0 (1 standard drink = 0.6 oz pur e alcohol) [facility] Utilities Answer Date Recorded In the [...] any time in the past 12 m [facility], were you homeless or living in a alf (including now)? No 07/11/2024 Yearly Questionnaire Answer [...] (CMS-HCC) documented in this encounter Care Teams Cyber Incident Responder Relationship Specialty Start Date End Date Betty Antonio [address] [place] [address] PCP - General 12/14/23 documented as of this encounter
--- OUTSIDE RECORDS SUMMARY | 2025-07-27 11:47 | XMS_ITS | Clinical Summary ---
Author Organization [facility] Address [address] [place] [address] Phone Care Team Providers Care Electronics Warfare Technician Name Role Phone Unavailable Unavailable Conditions or Problems No information available. Medications No information available. Medications Administered No information available. Allergies, Adverse Reactions, Alerts No information available. Results No information available. Plan of Care No information available. Procedures No information available. Vital Signs No information available. Immunizations No information available. Advance Directives No information available.
--- OUTSIDE RECORDS SUMMARY | 2025-07-27 11:47 | XMS_ITS | Encounter Summary ---
Author Organization [facility] Address [address] [place] [address] Care Team Providers Care Powerhouse Engineer Name Role Phone Betty Antonio Primary Care Provider [phone] Source Comments This information has been disclosed [...] release of HIV test results or diagnoses. [id number] Health Encounter Details Date Type Department Care Team (Late st Contact Info) Description 02/26/2024 Ophth Exam [facility] Ophthalmology at [address] [place] [phone] Raul Raymond MD Social History Tobacco Use Types Packs/Day Years Used Date Smoking Tobacco: Every Day Cigarettes 1 6.9 Started: 2019 Smokeless Tobacco: Never Alcohol Use Standard Drinks/Week Comments Not Currently 0 (1 standard drink = 0.6 oz pur e alcohol) [facility] Utilities Answer Date Recorded In the past [...] any time in the past 12 m [facility], were you homeless or living in a chcf (including now)? No 02/22/2024 Comments No Sex [...] on filedocumented in this encounter Care Teams Powerhouse Engineer Relationship Specialty Start Date End Date Betty Antonio [address] [place] [address] [address] [place] [address] PCP - General 12/14/23 documented as of this encounter
--- OUTSIDE RECORDS SUMMARY | 2025-07-27 11:47 | XMS_ITS | Encounter Summary ---
Author Organization [facility] Address [facility] [place] [address] Care Team Providers Care Paper Bag Machine Operator Name Role Phone Betty Antonio Primary Care Provider [phone] Source Comments This information has been disclosed [...] release of HIV test results or diagnoses. [id number] Health Reason for Visit * Reason Comments Medication Refill Encounter Details Date Type Department Care Team (Late st Contact Info) Description 04/28/2025 Refill [facility] Surgical Oncology at [facility] [address] [place] [phone] Ilia Wall MD [address] [place] [address]. [place] [phone] Idiopathic chronic pancreatitis ([facility]) Social History Tobacco Use Types Packs/Day Years Used Date Smoking Tobacco: Every Day Cigarettes 1 6.9 Started: 2019 Smokeless Tobacco: Never Alcohol Use Standard Drinks/Week Comments Not Currently 0 (1 standard drink = 0.6 oz pur e alcohol) [facility] Utilities Answer Date Recorded In the [...] (CMS-HCC) documented in this encounter Care Teams Paper Bag Machine Operator Relationship Specialty Start Date End Date Betty Antonio [address] [place] [address] PCP - General 12/14/23 documented as of this encounter
--- OUTSIDE RECORDS SUMMARY | 2025-07-27 11:48 | XMS_ITS | Encounter Summary ---
Author Organization Healthcare Address [address] [place] [address] Care Team Providers Care Clinical Research Analyst Name Role Phone AntonioBetty zamorano [place] FRANK Primary Care Provider [phone] Encounter Details Date Type Department Care Team (Late st Contact Info) Description 04/04/[address] [facility] Internal Medicine [address] [place] [address] Luz Jaime, WASTEWATER MANAGER [address] [place] [address] Social History Tobacco Use Types [...] drink first t luzmaria in the morning (EYE-LAYDOWN MACHINE OPERATOR) to steady your nerves or [...] documented as of this encounter Care Teams Clinical Research Analyst Relationship Specialty Start Date End Date Betty Antonio APRN [address] [place] [address] PCP - General 05/31/21 documented as of this encounter
--- OUTSIDE RECORDS SUMMARY | 2025-07-27 11:48 | XMS_ITS | Clinical Summary ---
Author Organization [facility] Address [address] [facility] [address] [place] [address] Phone Care Team Providers Care Portfolio Administrator Name Role Phone Unavailable Primary Care Provider [...]
--- OUTSIDE RECORDS SUMMARY | 2025-07-27 11:48 | XMS_ITS | Encounter Summary ---
Author Organization Healthcare Address [address] [place] [address] Care Team Providers Care Social Work Lecturer Name Role Phone AntonioVickishanna Coleman APRN Primary Care Provider [phone] Reason for Visit * Reason Comments Med Refill Encounter Details Date Type Department Care Team (Late st Contact Info) Description 08/07/2023 Refill [facility] [address] [place] [address] Albert Fierro PA [address] [place] [address] Social History Tobacco Use Types [...] drink first t luzmaria in the morning (EYE-DYEING MACHINE BACK TENDER) to steady your nerves or to get [...] 30 day supply with 2 refill(s) to [facility]. documented in this encounter Plan [...] documented as of this encounter Care Teams Social Work Lecturer Relationship Specialty Start Date End Date Betty Antonio APRN [address] [place] [address] PCP - General 05/31/21 documented as of this encounter
--- OUTSIDE RECORDS SUMMARY | 2025-07-27 11:48 | XMS_ITS | Referral Summary ---
Author Organization [employer] ([place], [place], [place], [place], [place]) Address [address] [place] [address] Care Team Providers Care Occupational Therapist Home Based Name Role Phone Betty Antonio SNAP SHEARER Primary Care Provider Allergies Active Allergy Reactions [...] Severe sepsis with acute organ dysfunction 10/19 GEOGRE (acute kidney injury) 10/19/2023 Social History Tobacco [...] Date Gordo rded Speak language other than Korean at home Not on file 10/19/2023 Want [...] Advance Directives For more information, please contact: [phone] * Full Code (Latest Code Status on File) Date Activated Date Inactivated Comments 10/19/2023 6:17 PM 10/26/2023 4:31 PM Care Teams Occupational Therapist Home Based Relationship Specialty Start Date End Date Betty Antonio, MONIKA [address] [address] PCP - General Nurse Practitioner 10/19/23
--- OUTSIDE RECORDS SUMMARY | 2025-07-27 11:48 | XMS_ITS | Clinical Summary ---
Author Organization [facility] Address [address] [place] [address] Care Team Providers Care Printing Mechanist Name Role Phone Leila Townsend MD Primary Care Provider + [phone] Social History Tobacco Use Types Packs/Day Years Used Date Smoking Tobacco: Never Assessed Comments Unknown Sex and Gender Information Value Date Recorded Sex Assigned at Not on file Legal Sex Female 3:11 PM EDT Gender Identity Not on file Sexual Orientation Not on file Plan of Treatment Not on file Insurance [employer] Care Teams Printing Mechanist Relationship Specialty Start Date End Date Leila Townsend MD [address] [facility] PCP - General Family Medicine 07/12/14
--- OUTSIDE RECORDS SUMMARY | 2025-07-27 11:48 | XMS_ITS | Encounter Summary ---
Author Organization [place] [address] Care Team Providers Care Warehouse Pricing And Inventory Clerk Name Role Phone Unavailable Primary Care Provider Unavailabl e Encounter Details Date Type Department Care Team (Late st Contact Info) Description 03/02/2024 Lab Requisition [facility] [address] [place] [facility] Madison Metcalf MD [address] [place] [id number] Acute and subacute infective endocarditis Social History [...] ORDERABLES Final Resu lt Performing Organization Address [facility] Co de Phone Number [facility] [address] [place] [address] * EXTRA GOLD SST (03/02/2024 10:30 AM EDT) Blood VENOUS BLOOD / Unknown 03/02/2024 10:30 AM EDT 03/02/2024 7:12 PM EDT us Madison Metcalf MD CHEMISTRY ORDERABLES Final Resul t Performing Organization Address [facility] de Phone Number [facility] [address] [place] [address] * (ABNORMAL) C-REACTIVE PROTEIN (03/02/2024 10:30 AM EDT) CRP 6.89(H) <=5.00 mg/L 03/02/2024 8:25 PM EDT [facility] Blood VENOUS BLOOD / Unknown 03/02/2024 10:30 AM EDT 03/02/2024 7:12 PM EDT Result Lashell Metcalf MD CHEMISTRY ORDERABLES Final Resul t Performing Organization Address [facility] de Phone Number [facility] [address] [place] [address] * (ABNORMAL) SEDIMENTATION RATE AUTOMATED (03/02/2024 10:30 AM EDT) Sed Rate 39(H) 0 - 30 mm/hr 03/02/2024 7:58 PM EDT [facility] Blood VENOUS BLOOD / Unknown 03/02/2024 10:30 AM EDT 03/02/2024 7:12 PM EDT us Madison Metcalf MD HEMATOLOGY ORDERABLES Final Resu lt [facility] [address] [facility] , [place] [address] * (ABNORMAL) COMPREHENSIVE METABOLIC PANEL (03/02/2024 10:30 [...] mL/min/1.7 3 m2 03/02/2024 8:25 PM EDT [facility] Comment:Estimated GFR was ca lculated using the CKD-EPIcr (2020) equation refit without race. The equation is recommended by the National Kidney Foundation - [place] Society of Nephrology Task Force. Blood VENOUS BLOOD / Unknown 03/02/2024 10:30 AM EDT 03/02/2024 7:12 PM EDT us Madison Metcalf MD CHEMISTRY ORDERABLES Final Resul t [facility] [address] [place] [address] [facility] 1 [place] [address] * (ABNORMAL) CBC WITH DIFF [...] 03/02/2024 7:58 PM EDT [facility] MPV 10.8 8.8 - 12.5 fL 03/02/2024 7:58 PM EDT [facility] Neut Percent 52.7 % 03/02/2024 7:58 PM EDT [facility] Comment:Neutrophils equals s egs plus bands Imm Gran% 0.6 % 03/02/2024 7:58 PM EDT [facility] Comment:Automated count of m etamyelocytes, myelocytes and promyelocytes. Lymph Percent 30.8 % 03/02/2024 7:58 PM EDT [facility] Leon Percent 5.8 % 03/02/2024 7:58 PM EDT [facility] Eos Percent 8.6 % 03/02/2024 7:58 PM EDT [facility] Baso Percent 1.5 % 03/02/2024 7:58 PM EDT [facility] Neut # 3.8 1.6 - 6.1 x10(3)/[facility] 03/02/2024 7:58 PM EDT [facility] Comment:Neutrophils equals s egs plus bands IMMGRAN# 0.0 0.0 - 0.1 x10(3)/[facility] 03/02/2024 7:58 PM EDT [facility] Comment:Automated count of m etamyelocytes, myelocytes and promyelocytes. An absolute IG <0.1 is reported as 0.0. Lymph # 2.2 1.2 - 3.9 x10(3)/[facility] 03/02/2024 7:58 PM EDT [facility] Leon # 0.4 0.3 - 0.9 x10(3)/[facility] 03/02/2024 7:58 PM EDT [facility] Eos# 0.6(H) 0.0 - 0.5 x10(3)/[facility] 03/02/2024 7:58 PM EDT [facility] Baso # 0.1 0.0 - 0.1 x10(3)/[facility] 03/02/2024 7:58 PM EDT [facility] Blood VENOUS BLOOD / Unknown 03/02/2024 10:30 AM EDT 03/02/2024 7:12 PM EDT us Madison Metcalf MD HEMATOLOGY ORDERABLES Final Resu lt [facility]??, [facility] [address] [place] [id number] documented in this encounter Visit Diagnoses Diagnosis 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
--- OUTSIDE RECORDS SUMMARY | 2025-07-27 11:48 | XMS_ITS | Clinical Summary ---
Author Organization [facility] Address [address] [place] [address] Care Team Providers Care Tempering Oven Operator Name Role Phone AntonioBetty zamorano [place] FRANK Primary Care Provider +1- [phone] Allergies Active Allergy Reactions Criticality Noted Date [...] time each day. Active cholecalciferol 250 MCG (73965 UT) capsule Take 5,000 Units by mouth [...] place to sleep or slept in a halfway (including now)? No 09/27/2023 CAGE ASSESSMENT Answer [...] drink first t luzmaria in the morning (EYE-TANK OFFICER) to steady your nerves or to get [...] of 2) 02/15/2008 [facility]-Depression Screening 11/27/2024 11/28/2023 [id number] Vaccine (3 - season) 2025 09/05/2021, 01/10/2021 [...] this topic Medical Devices Implanted Type Area Constitutional Law Professor Device Identifier Shelf Expiration Date Model / Serial / Lot Stent Biliary 2.3 X 50mm - [id number] Implanted:Qty: 1 on 02/25/2023 by Flavio Noble MD at [facility]-[id number] 10/04/2025 [id number] / / [id number] Stent Biliary 2.3 X 50mm - [id number] Implanted:Qty: 1 on 02/25/2023 by Flavio Noble MD at [facility]-[id number] 11/12/2025 [id number] / / [id number] Procedures Procedure Name Priority Date/Time Associated Diagnosis [...] Lolly Johnson MD Proceduralist Celso Zimmerman Endo Wood Tank Erector Preprocedure A history and physical has been [...] of bowel preparation was evaluated using the Tamms Bowel Preparation Scale with scores of: right [...] Antibody Negative Negative 04/01/2023 4:45 PM EDT [facility] Blood Venous blood specimen / Unknown Venipuncture / Unknown 04/01/2023 3:49 PM EDT 04/01/2023 4:03 PM EDT Juan Jose Novak MD LAB BLOOD ORDERABLES Final Resul t Performing Organization Address City/State/[facility] Co de Phone Number [facility] [address] [place] [address] * Hemoglobin A1c (01/15/2023 5:04 PM EDT) [...] Adults <6.0% Children and Adolescents <7.5% Source: [place] [employer]. Standards of medical care in diabetes,2017. Diabetes Care.2017:40 (suppl 1):S1-S135. HbA1c assay performed by an ion-exchange chromatography method that is certified traceable to the DCCT. us Albert SANCHEZ LAB BLOOD ORDERABLES Final Re sult Performing Organization Address [facility] Co de Phone Number [facility]ALTH[facility]ARE [facility] [address] [place] [address] from Last 3 Months or Most Recently Relevant to Health Maintenance Insurance [facility] MEDIC[facility] Advance Directives * Full Code [...] Patient has decision-making capacity? Yes Care Teams Tempering Oven Operator Relationship Specialty Start Date End Date Betty Antonio APRN [address] [place] [address] PCP - General 05/31/21
--- OUTSIDE RECORDS SUMMARY | 2025-07-27 11:48 | XMS_ITS | Clinical Summary ---
Author Organization [employer] ([place], [place], [place], [place], [place]) Address [address] [place] [address] Care Team Providers Care Coyote Hunter Name Role Phone Betty Antonio NURSE PLASTICS Primary Care Provider Allergies Active Allergy Reactions [...] Date Gordo rded Speak language other than Yi at home Not on file 10/19/2023 Want [...] Advance Directives For more information, please contact: [phone] * Full Code (Latest Code Status on File) Date Activated Date Inactivated Comments 10/19/2023 6:17 PM 10/26/2023 4:31 PM Care Teams Coyote Hunter Relationship Specialty Start Date End Date Betty Antonio, NURSE PLASTICS [address] [address] PCP - General Nurse Practitioner 10/19/23
--- OUTSIDE RECORDS SUMMARY | 2025-07-27 11:48 | XMS_ITS | Clinical Summary ---
Author Organization [facility] Address [address] [place] [address] Care Team Providers Care Track Sweeper Name Role Phone Betty Antonio Primary Care Provider [phone] Source Comments This information has been disclosed [...] therelease of HIV test results or diagnoses. [id number] Allergies Active Allergy Reactions Criticality Noted [...] original. [employer] 4238.Julio Winston MSN RN. she/hers. [facility] Infectious Diseases -- OPAT (Outpatient Parenteral Antimicrobial Therapy). [phone]. Problem Noted Date Diagnosed Date Tinnitus of both ears 02/02/2025 Chronic pancreatitis 06/16/2024 Fungemia 04/06/2024 Subacute bacterial endocarditis 02/26/2024 Encounters Date Type Department Care Team Description 07/20/2025 Refill [facility] Surgical Oncology at [address] [address] Ilia Wall MD Idiopathic chronic pancreatitis ([facility]) 06/01/2025 Refill [facility] Surgical Oncology at [address] [address] Ilia Wall MD Idiopathic chronic pancreatitis ([facility]) 05/11/2025 3:00 PM EDT Office Visit [facility] Cardiology at [facility] [address] [facility] [address] [place] [address] Radha Alvarez MD Abnormality of aortic valve (Primary Dx); History of endocarditis; Encounter for smoking cessation counseling 05/11/2025 Telephone [facility] Cardiology at [facility] [address] [facility] [address] [place] [address] Radha Alvarez MD 04/28/2025 Refill [facility] Surgical Oncology at [address] [address] Ilia Wall MD Idiopathic chronic pancreatitis ([facility]) from Last 3 Months Family History Medical [...] drink = 0.6 oz pur e alcohol) [facility] Utilities Answer Date Recorded In the [...] any time in the past 12 m [facility], were you homeless or living in a retirement (including now)? No 07/11/2024 Yearly Questionnaire Answer [...] - 0.79 S/CO 12/14/2023 4:24 PM EDT [facility] Serum 12/14/2023 3:11 PM EDT 12/14/2023 3:24 PM EDT us Olivia Estevez MD LAB BLOOD ORDERABLES Final Resul t [facility] [address] [place] [address], [facility] from Last 3 Months or Most Recently Relevant to Health Maintenance Insurance [employer] CHOICE PPO MEDICARE Advance Directives For more information, please contact: [phone] * Full Code (Latest Code Status on [...] 6:53 PM 02/27/2024 12:09 AM Care Teams Track Sweeper Relationship Specialty Start Date End Date Betty Antonio [address] [place] [address] PCP - General 12/14/23
--- OUTSIDE RECORDS SUMMARY | 2025-07-27 11:48 | XMS_ITS | Encounter Summary ---
Author Organization [facility] Address [address] [place] [address] Care Team Providers Care Change House Attendant Name Role Phone Betty Antonio CONFIGURATION MANAGEMENT ADVISOR Primary Care Provider + [phone] Reason for Visit * Reason Comments Med Refill Encounter Details Date Type Department Care Team (Late st Contact Info) Description 07/30/2022 Refill [facility] [address] [place] [address] Juan Bonds MD [address] [place] [address] Closed fracture of neck of left femur [...] documented as of this encounter Care Teams Change House Attendant Relationship Specialty Start Date End Date Betty Antonio APRN PCP - General Internal Medicine 04/14/22 documented as of this encounter
--- OUTSIDE RECORDS SUMMARY | 2025-07-27 11:48 | XMS_ITS | Encounter Summary ---
Author Organization [facility] Address [facility] [place] [address] Care Team Providers Care Floor Manager Name Role Phone Betty Antonio Primary Care Provider [phone] Source Comments This information has been disclosed [...] release of HIV test results or diagnoses. [id number] Health Reason for Visit * Reason Comments Medication Refill Encounter Details Date Type Department Care Team (Late st Contact Info) Description 07/20/2025 Refill [facility] Surgical Oncology at [facility] [address] [place] [phone] Ilia Wall MD [address] [place] [address]. [place] [phone] Idiopathic chronic pancreatitis ([facility]) Social History Tobacco Use Types Packs/Day Years Used Date Smoking Tobacco: Every Day Cigarettes 1 6.9 Started: 2019 Smokeless Tobacco: Never Alcohol Use Standard Drinks/Week Comments Not Currently 0 (1 standard drink = 0.6 oz pur e alcohol) [facility] Utilities Answer Date Recorded In the past [...] any time in the past 12 [facility], were you homeless or living in a [place] [facility] [place] facility (including now)? No 07/11/2024 Yearly Questionnaire Answer [...] (CMS-HCC) documented in this encounter Care Teams Floor Manager Relationship Specialty Start Date End Date Betty Antonio [address] [place] [address] PCP - General 12/14/23 documented as of this encounter
--- OUTSIDE RECORDS SUMMARY | 2025-07-27 11:48 | XMS_ITS | Clinical Summary ---
Author Organization [facility] Address [address] [place] [address] Care Team Providers Care Certified Adaptive Physical Educator Name Role Phone PacoBetty MONIKA Primary Care Provider + [phone] Allergies Active Allergy Reactions Criticality Noted Date [...] 4 MG disintegrating tablet 3 Active Creon 06266-38943 units capsule delayed-release particles capsule Take 1 [...] Completed 04/01/2023 Medical Devices Implanted Type Area Hooker Off Device Identifier Shelf Expiration Date Model / Serial / Lot Scrw Hernandez Sd/St [id number] 6.5x85mm - [id number] Implanted:Qty : 2 on 04/13/2022 by Juan Bonds MD at [facility] Implant Left: Hip [employer] [id number] / / Scrw Hernandez Sd/St [id number] 6.5x80mm - [id number] Implanted:Qty : 1 on 04/13/2022 by Juan Bonds MD at [facility] Implant Left: Hip [employer] [id number] / / Insurance [employer] MEDICARE ADVANTAGE MEDICARE [...] Of Support Discussed With: Patient Care Teams Certified Adaptive Physical Educator Relationship Specialty Start Date End Date Betty Antonio APRN PCP - General Internal Medicine 04/14/22
--- NOTE | 2025-07-27 12:24 | SW/DCPLANNER ---
Addendum entered by Emilee Prince 07/28/25 12:41: Per Rehan lópez/ [facility] patient has been accepted for services. Addendum entered by Emilee Prince 07/28/25 10:03: Patient will discharge home today. No agency preference for home health services. Patient information/order will be faxed to Christianne lópez/ [facility]. Original Note: I spoke w/ patient regarding discharge planning. Patient currently resides at home w/ daughter. PT evaluated patient and recommended home health services. Patient is agreeable to home health at time of discharge. Discharge date is unknown at this time. CM will continue to follow up.
[2025-07-27 13:14] LABS: Sodium,Urine Random 73.0 mmol/L (30-90)
[2025-07-27] MEDS: SODIUM BICARBONATE 650MG TABLET 1300 MG PO ×2 (15:20→20:21)
[2025-07-27] MEDS: ACETAMINOPHEN 325MG TAB 650 MG PO (16:30)
[2025-07-27] MEDS: PANTOPRAZOLE 40MG TABLET 40 MG PO (20:21)
[2025-07-28] VITALS: BP 118/49; PULSE 65; PULSE 66; RESP 16; TEMP 36.9; O2SAT 95
[2025-07-28] MEDS: LACTATED RINGERS 1000ML 1,000 ML 100 ML IV (00:34)
[2025-07-28 04:00] VITALS: BP 83/37; PULSE 70; PULSE 74; RESP 16; TEMP 36.6; O2SAT 97; BMI 23.5
[2025-07-28 06:00] LABS: Hematocrit 40.5 % (37.0-47.0); Hemoglobin 13.6 g/dL (12.2-16.2); Immature Granulocytes % 1.2 %; Mean Corpuscular HGB Conc 33.6 g/dL (31.8-35.4); Mean Corpuscular Hemoglobin 30.0 pg (27.0-31.2); Mean Corpuscular Volume 89.2 fl (81-99); Nucleated Red Blood Cells % 0 %; Platelet Count 164 K/mm3 (142-424); Red Blood Count 4.54 M/mm3 (4.20-5.40); Red Cell Distribution Width-SD 53.6 fL; White Blood Count 8.2 K/mm3 (4.8-10.8)
[2025-07-28 06:10] LABS: Alanine Aminotransferase 17 U/L (12-78); Albumin Level 3.3 g/dl (3.5-5.0); Albumin/Globulin Ratio 1.4 (1.1-1.8); Alkaline Phosphatase 107 U/L (38-126); Anion Gap 9.0 mEq/L (5-15); Aspartate Amino Transferase 23 U/L (14-36); Bilirubin,Total 0.4 mg/dl (0.2-1.3); Blood Urea Nitrogen 18 mg/dl (7-17); Calcium 8.3 mg/dl (8.4-10.2); Carbon Dioxide 15 mmol/L (22.0-30.0); Chloride 115 mmol/L (98-107); Creatinine Clearance Estimated 50 mL/min (50-200); Creatinine,Serum 0.80 mg/dl (0.52-1.04); Estimated Glomerular Filt Rate 72 ml/min (>60); GFR (African American) 87 ML/MIN (>60); Globulin 2.4 g/dL (1.3-3.2); Glucose 97 mg/dl (74-100); Potassium 4.0 mmoL/L (3.5-5.1); Sodium 135 mmol/L (136-145); Total Protein,Serum 5.7 g/dl (6.3-8.2)
[2025-07-28 07:32] LABS: Magnesium 1.4 mg/dl (1.6-2.3)
[2025-07-28 07:55] VITALS: BP 136/59; PULSE 65; RESP 18; TEMP 36.8; O2SAT 99
[2025-07-28 08:00] VITALS: PULSE 60
--- NOTE | 2025-07-28 08:48 | EXP.DC.SUM ---
General Admission date:: 07/27/25 Discharge date: 07/28/25 HPI HPI HPI: Caitlyn Mcbride is a 65-year-old female with past medical history significant for vertigo, TIA, pancreatitis, frequent falls, GERD, mood disorder, tobacco use, history of aortic valve replacement with porcine valve, hip replacement, appendectomy, laparoscopic cholecystectomy. Presents to [facility] secondary to abnormal laboratory finding per PCP CO2 of 7. Recommend the patient follow-up to the emergency department for further evaluation and treatment. Patient reported recent diagnosis of pneumonia with nausea and vomiting. States symptoms from pneumonia subsided. Nausea vomiting, last occurrence last week. Denies any further symptoms. Reported occasional vertigo but this has been an ongoing intermittent issue for the patient. At times complicates ADLs/ambulation due to episodic vertigo. Currently denies symptoms of dizziness/vertigo. Denies recent fall or injury. Repeat CO2 within the emergency department revealed improvement from initial finding 7, now 13. Venous blood gas obtained ED pH 7.21. Notable electrolyte abnormality, low magnesium level of 0.9, mild decrease in potassium of 3.4. Patient is without complaint or distress. Alert and oriented x 3. Reports eating and drinking adequately. Currently resides with her daughter who assists with ADLs. Denies current/recent diarrhea, respiratory ailments, shortness of breath, cough, fever, chest pain, abdominal pain. Initial ED workup included laboratory studies and imaging. Venous blood gas 7.21, VBG pCO2 31, VBG pCO2 70.2, VBG HCO3 12, VBG total CO2 13, VBG O2 93.4, potassium 3.4, chloride 112, carbon dioxide 13, anion gap 18.4, BUN 25, GFR 55, magnesium 0.9, BNP 400. Imaging study obtained CT head, I personally reviewed, without intracranial hemorrhage mass lesions or acute stroke. Mild small vessel ischemic changes periventricular white matter. Received 4 mg magnesium sulfate in the emergency department. Upon bedside assessment patient is without any acute distress. Hemodynamically stable. Assisted patient to bathroom. Ambulating adequately although notable weakness. Denies current dizziness/vertigo. Alert and oriented x 3. Hospital Course Hospital Course Hospital Course: Ms. Mcbride is a 65-year-old female who presented with weakness and some shortness of breath. Workup in the ER found metabolic acidosis. Further workup after admission found concern for component of type II RTA. Electrolytes showing improvement after initiating replacement with sodium HCO3. Given her clinical stability, was evaluated by therapy and deemed appropriate to discharge home with home health. Stable discharge at this time to follow-up with primary care in the next 1 to 2 weeks for further management. Problems addressed as follows: Metabolic acidosis Electrolyte disturbances with hypomagnesemia and hypokalemia - Venous blood gas noted pH 7.2, outpatient laboratory findings CO2 of 7, repeat within the emergency department 13. Per chart review appears to be chronically low although notable repeat level not quite at baseline. Recent gastrointestinal and respiratory illness, possible contributing factor. Recent addition of Phenergan due gastrointestinal symptoms. Patient without acute distress, alert and oriented x 3. Workup including urine studies and serial serum monitoring of bicarb were performed. White count and hemoglobin remained normal through admission. Blood gas obtained on admission showed VBG pH of 7.2, pCO2 of 31 which is low and bicarb low at 12. Findings most consistent with metabolic acidosis. Concern for renal tubular acidosis. Sodium 132, chloride 113. Potassium showed improvement on labs from 3-4.0. Bicarb showed gradual improvement from 7-21 by day of discharge after initiating replacement. Potassium 3.0 on morning labs. Bicarb 10 on morning labs. Anion gap normal at 12. Magnesium replaced quite well at 4.1 this morning. Obtaining urine studies on electrolytes. Urine sodium this morning of 73, urine urea nitrogen 595. - Urine pH consistently 6.0 on urinalysis at time of admission as well as this morning. Patient denies significant diarrhea history. 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 Initiated sodium replacement with bicarb 1300 mg twice daily. Sodium improved to 21 by morning of discharge. Discharge on replacement. Would benefit from referral to nephrology for further evaluation. - Urine chloride 98, urine sodium 73, urine urea nitrogen of 595 - Patient to repeat BMP or CMP with magnesium in 1 to 2 weeks to monitor stability of kidney function and electrolytes along with improvement in her bicarb , plan to discharge home with referral to nephrology as an outpatient for further management. - Urine osmolality and chloride pending Vertigo/status post concussion/frequent falls: - Occurred 07/13-> CT head at the time of occurrence was without any acute finding. She developed mild headache with noted intermittent headache and dizziness. Patient currently without any complaints of dizziness and vertigo. CT head on admission was without any acute findings. Had some weakness with ambulating. Therapy evaluated. Remained stable. Walks with cane at home normally but does have walker. Encouraged her to use her walker to ambulate at home. Discharged with order for home health. 4. Heart valve replacement with porcine valve: Follows with Dr. Spann-missed appointment May, follow-up visit in 3 months for general checkup. Total time spent on discharge 41 minutes in counseling, documentation, chart review, and direct care with patient. Exam Data for Last 24 hours Vital signs and Labs for Last 24 Hours: Temp Pulse Resp BP Pulse Ox O2 Del Method 98.2 F 65 18 136/59 L 99 Room Air 07/28/25 07:55 07/28/25 07:55 07/28/25 07:55 07/28/25 07:55 07/28/25 07:55 07/28/25 07:55 Laboratory Results - last 24 hr 07/27/25 09:00: Urine Color Yellow, Urine Appearance Clear, Urine pH 6.0, Ur Specific [place] 1.020, Urine Protein Trace, Urine Glucose (UA) Negative, Urine Ketones Trace, Urine Blood Negative, Urine Nitrate Negative, Urine Bilirubin Negative, Urine Urobilinogen 0.2, Ur Leukocyte Esterase Negative, Urine RBC None, Urine WBC Occasional, Ur Squamous Epith Cells Occasional, Urine Bacteria Trace, Ur Random Urea Nitrogn 595, Urine Sodium 73.0 07/28/25 05:22: WBC 8.2, RBC 4.54, Hgb 13.6, Hct 40.5, MCV 89.2, MCH 30.0, MCHC 33.6, RDW 16.7, Plt Count 164, MPV 9.3, Neut % (Auto) 55.2, Lymph % (Auto) 32.8, [place] % (Auto) 7.8, Eos % (Auto) 2.3, Baso % (Auto) 0.7, Neut # (Auto) 4.5, Lymph # (Auto) 2.7, [place] # (Auto) 0.6, Eos # (Auto) 0.2, Baso # (Auto) 0.1, Sodium 135 L, Potassium 4.0 D, Chloride 115 H, Carbon Dioxide 15 L, Anion Gap 9.0, BUN 18 H, Creatinine 0.80, Estimated Creat Clear 50, Estimated GFR 72, Est GFR ( Amer) 87, Glucose 97, Calcium 8.3 L, Magnesium 1.4 L D, Total Bilirubin 0.4, AST 23, ALT 17, Alkaline Phosphatase 107, Total Protein 5.7 L, Albumin 3.3 L, Globulin 2.4, Albumin/Globulin Ratio 1.4 I & O for Last 24 hours: Intake & Output 07/25/25 07/26/25 07/27/25 07/28/25 23:59 23:59 23:59 23:59 Intake Total 2760.000 / 2760.000 1163.333 / 1163.333 Output Total 900 / 900 400 / 400 Balance 1860.000 / 1860.000 763.333 / 763.333 Weight 54.885 kg 54.885 kg 58.014 kg Constitutional Constitutional: no acute distress and chronically ill appearing *Routine HEENT Exam Head: Present normocephalic Eye: Present EOMI and PERRL ENT: Present mucous membranes moist *Routine Neck Exam Neck: Present supple; Absent lymphadenopathy Routine Chest/Breast/Axilla Exam Comments: Well-healed midline scar *Routine Respiratory Exam Respiratory: Present CTA bilaterally *Routine Cardiovascular Exam Cardiovascular: Present RRR *Routine Abdominal Exam Abdominal: Present soft and normoactive bowel sounds; Absent tenderness *Routine Rectal Exam Patient deferred: visual exam *Routine Exam Patient deferred: external exam *Routine Extremities Exam Extremities: Absent cyanosis, clubbing or edema *Routine Skin Exam Skin: Present intact and warm; Absent rash *Routine Neurological Exam Neurological: Present alert, oriented X3 and moving all extremities; Absent altered mental status Results Data Completed and Pending Labs on day of discharge: Labs from last 24 hours 07/28/25 07/27/25 05:22 09:00 WBC 8.2 RBC 4.54 Hgb 13.6 Hct 40.5 MCV 89.2 MCH 30.0 MCHC 33.6 RDW 16.7 Plt Count 164 MPV 9.3 Neut % (Auto) 55.2 Lymph % (Auto) 32.8 [place] % (Auto) 7.8 Eos % (Auto) 2.3 Baso % (Auto) 0.7 Neut # (Auto) 4.5 Lymph # (Auto) 2.7 [place] # (Auto) 0.6 Eos # (Auto) 0.2 Baso # (Auto) 0.1 Sodium 135 L Potassium 4.0 D Chloride 115 H Carbon Dioxide 15 L Anion Gap 9.0 BUN 18 H Creatinine 0.80 Estimated Creat Clear 50 Estimated GFR 72 Est GFR ( Amer) 87 Glucose 97 Calcium 8.3 L Magnesium 1.4 L D Total Bilirubin 0.4 AST 23 ALT 17 Alkaline Phosphatase 107 Total Protein 5.7 L Albumin 3.3 L Globulin 2.4 Albumin/Globulin Ratio 1.4 Urine Color Yellow Urine Appearance Clear Urine pH 6.0 Ur Specific [place] 1.020 Urine Protein Trace Urine Glucose (UA) Negative Urine Ketones Trace Urine Blood Negative Urine Nitrate Negative Urine Bilirubin Negative Urine Urobilinogen 0.2 Ur Leukocyte Esterase Negative Urine RBC None Urine WBC Occasional Ur Squamous Epith Cells Occasional Urine Bacteria Trace Ur Random Urea Nitrogn 595 Urine Sodium 73.0 DS: Diagnosis Discharge Diagnosis (1) Metabolic acidosis: Status: Acute Code(s): E87.20 - Acidosis, unspecified (2) Electrolyte depletion: Status: Acute Code(s): E87.8 - Other disorders of electrolyte and fluid balance, not elsewhere classified (3) Hypomagnesemia: Status: Acute Code(s): E83.42 - Hypomagnesemia (4) Weakness of lower extremity: Status: Acute Code(s): R29.898 - Other symptoms and signs involving the musculoskeletal system Qualifiers: Laterality: bilateral Qualified Code(s): R29.898 - Other symptoms and signs involving the musculoskeletal system (5) Frequent falls: Status: Acute Code(s): R29.6 - Repeated falls (6) Vertigo: Status: Acute Code(s): R42 - Dizziness and giddiness (7) History of heart valve replacement with porcine valve: Status: Acute Code(s): Z95.3 - Presence of xenogenic heart valve (8) Concussion: Status: Acute Code(s): S06.0XAA - Concussion with loss of consciousness status unknown, initial encounter Qualifiers: Loss of consciousness presence/duration: unknown LOC status (9) Type II RTA: Status: Acute Code(s): N25.89 - Other disorders resulting from impaired renal tubular function Meds Home Medications and Allergies Home Medications ?Medication ?Instructions ?Recorded ?Confirmed ?Type propranolol 10 mg tablet 10 mg PO TID 02/19/25 07/27/25 History temazepam 15 mg capsule 15 mg PO HS Insomnia 30 days #30 05/05/25 07/27/25 Rx caps pregabalin 300 mg capsule 300 mg PO BID 07/12/25 07/27/25 History albuterol sulfate 90 mcg/actuation 2 puff inhalation Q4-6H PRN 07/16/25 07/27/25 Rx aerosol inhaler (Ventolin HFA) shortness of breath or wheezing #8.5 grams polysaccharide iron complex 180 mg 180 mg PO DAILY #90 caps 07/19/25 07/27/25 Rx iron capsule (Pro Fe) promethazine 25 mg tablet 25 mg PO Q6H PRN nausea and 07/20/25 07/27/25 Rx vomiting #30 tabs buspirone 7.5 mg tablet 7.5 mg PO BID 07/27/25 07/27/25 History hydroxyzine HCl 50 mg tablet 50 mg PO TIDP PRN Anxiety 07/27/25 07/27/25 History jufdgc-zenkqkvq-pdmqkew (pork) 1 cap PO TIDWMEAL 07/27/25 07/27/25 History 25,000-79,000-105k unit capsule,del rel (Zenpep) pantoprazole 40 mg tablet,delayed 40 mg PO DAILY 07/27/25 07/27/25 History release paroxetine HCl 40 mg tablet 40 mg PO DAILY 07/27/25 07/27/25 History sodium bicarbonate 650 mg tablet 1,300 mg (2 x 650 mg) PO BID 30 07/28/25 Rx days #120 tabs New Prescriptions to Start Prescriptions: Bryan Rojas Allergies Allergy/AdvReac Type Severity Reaction Status Date / Time [facility] Allergy Unknown SEIZURES Verified 07/26/25 15:10 Discharge Plan Disposition Patient Disposition: Home Health Service Condition: Fair Discharge Order Discharge Orders: Discharge Order (Routine); Ordered 07/28/25 Ordered By: Bryan Kitchen Follow up Plan Follow up with: Betty Antonio APRN [Primary Care Provider, Medical] - 08/02/25 2:30 pm Prescriptions/Medication Reconciliation: New sodium bicarbonate 650 mg Tablet 1,300 mg PO BID 30 Days Qty: 120 0RF Continued propranolol 10 mg tablet 10 mg PO TID Patient Comments: TAKE 1 TABLET BY MOUTH AT BEDTIME FOR 4 DAYS THEN 1 TWICE DAILY FOR 4 DAYS THEN 1 THREE TIMES DAILY FOR 22 DAYS pregabalin 300 mg capsule 300 mg PO BID Patient Comments: TAKE 1 CAPSULE BY MOUTH TWICE DAILY albuterol sulfate [Ventolin HFA] 90 mcg/actuation HFA aerosol inhaler 2 puff inhalation Q4-6H PRN (Reason: shortness of breath or wheezing) Qty: 8.5 0RF temazepam 15 mg capsule 15 mg PO HS 30 Days Qty: 30 2RF Pro Fe 180 mg iron capsule 180 mg PO DAILY Qty: 90 0RF promethazine 25 mg tablet 25 mg PO Q6H PRN (Reason: nausea and vomiting) Qty: 30 0RF hydroxyzine HCl 50 mg tablet 50 mg PO TIDP PRN (Reason: Anxiety) pantoprazole 40 mg tablet,delayed release (DR/EC) 40 mg PO DAILY paroxetine HCl 40 mg tablet 40 mg PO DAILY buspirone 7.5 mg tablet 7.5 mg PO BID Zenpep 25,000-79,000- 105,000 unit capsule,delayed release(DR/EC) 1 cap PO TIDWMEAL Rx Instructions: TAKE 1 CAPSULE BY MOUTH THREE TIMES DAILY WITH FOOD Problem Reconciliation Problems Reviewed?: Yes Patient Discharge Instructions ACTIVITY: Continue current activity DIET: continue same diet Patient Instructions: DI for Hypomagnesemia Print Language: Uruguayan Providers Primary Care Provider: Betty Antonio Admit Provider: Tylor Greco Attending Provider: Tylor Greco
[2025-07-28] MEDS: MAGNESIUM SULFATE IN WATER 2 GM/50 ML PIGGYBACK IV ×3 (09:40→11:22)
[2025-07-28] MEDS: BUSPIRONE HCL 5 MG TABLET 7.5 MG PO (09:40)
[2025-07-28] MEDS: LIPASE/PROTEASE/AMYLASE 1 EACH CAPSULE.DR PO (09:41)
[2025-07-28] MEDS: SODIUM BICARBONATE 650MG TABLET 1300 MG PO ×2 (09:41→12:59)
[2025-07-28 11:12] LABS: Chloride, Urine 98 mmol/L (Not Estab.)
[2025-07-28 12:00] VITALS: BP 121/66; PULSE 70; RESP 18; TEMP 36.7; O2SAT 98
[2025-07-28 14:13] LABS: Anion Gap 10.7 mEq/L (5-15); Blood Urea Nitrogen 17 mg/dl (7-17); Calcium 8.4 mg/dl (8.4-10.2); Carbon Dioxide 21 mmol/L (22.0-30.0); Chloride 107 mmol/L (98-107); Creatinine Clearance Estimated 50 mL/min (50-200); Creatinine,Serum 0.70 mg/dl (0.52-1.04); Estimated Glomerular Filt Rate 83 ml/min (>60); GFR (African American) 101 ML/MIN (>60); Glucose 118 mg/dl (74-100); Potassium 3.7 mmoL/L (3.5-5.1); Sodium 135 mmol/L (136-145)
[2025-07-30 07:09] LABS: Osmolality, Urine 638 mOsmol/kg (.)
== END 2025-07-28 15:10 | disposition home health service (06) | DRG 699 ==
LOC: ER 23:54 → 2ND 07-27 08:16
PROVIDERS: Internal Medicine Adolescent Medicine; Nurse Practitioner Acute Care; Admitting Provider Student in an Organized Health Care Education/Training Program; Emergency Provider Student in an Organized Health Care Education/Training Program; PCP Nurse Practitioner Family; Visit Provider Student in an Organized Health Care Education/Training Program
DX: N25.89 Other disorders resulting from impaired renal tubular function (principal); E87.20 Acidosis, unspecified; E83.42 Hypomagnesemia; E87.6 Hypokalemia; F17.210 Nicotine dependence, cigarettes, uncomplicated; R42 Dizziness and giddiness; R29.6 Repeated falls; R29.898 Other symptoms and signs involving the musculoskeletal system; Z95.3 Presence of xenogenic heart valve; Z87.820 Personal history of traumatic brain injury; Z90.49 Acquired absence of other specified parts of digestive tract; Z88.1 Allergy status to other antibiotic agents; Z79.899 Other long term (current) drug therapy
CPT/HCPCS: 36415; 70450; 71045; 74177; 80048; 80053; 80329; 81001; 82436; 82803; 83690; 83735; 83880; 83935; 84100; 84484; 84540; 85025; 86803; 87389; 93005; 97162; 97166; 97530; 99285; J3475; J7120; Q9967

== ENCOUNTER 2025-08-09 15:11 | Outpatient (CLI) | payer MEDICARE, SELFPAY ==
[2025-08-09 18:11] LABS: Alanine Aminotransferase 78 U/L (12-78); Albumin Level 3.3 g/dl (3.5-5.0); Albumin/Globulin Ratio 1.4 (1.1-1.8); Alkaline Phosphatase 184 U/L (38-126); Anion Gap 14.8 mEq/L (5-15); Aspartate Amino Transferase 73 U/L (14-36); Bilirubin,Total 0.4 mg/dl (0.2-1.3); Blood Urea Nitrogen 15 mg/dl (7-17); Calcium 8.5 mg/dl (8.4-10.2); Carbon Dioxide 24 mmol/L (22.0-30.0); Chloride 108 mmol/L (98-107); Creatinine,Serum 0.70 mg/dl (0.52-1.04); Estimated Glomerular Filt Rate 83 ml/min (>60); GFR (African American) 101 ML/MIN (>60); Globulin 2.4 g/dL (1.3-3.2); Glucose 59 mg/dl (74-100); Potassium 3.8 mmoL/L (3.5-5.1); Sodium 143 mmol/L (136-145); Total Protein,Serum 5.7 g/dl (6.3-8.2)
[2025-08-09 18:18] LABS: Magnesium 1.0 mg/dl (1.6-2.3)
== END 2025-08-09 23:59 | disposition home or self-care (01) ==
LOC: LAB.DROPOF 08-10 14:48
PROVIDERS: PCP Nurse Practitioner Family; Visit Provider Nurse Practitioner Family
DX: N25.89 Other disorders resulting from impaired renal tubular function (principal); E87.8 Other disorders of electrolyte and fluid balance, not elsewhere classified; E83.42 Hypomagnesemia; E87.20 Acidosis, unspecified; I33.0 Acute and subacute infective endocarditis
CPT/HCPCS: 80053; 83735

== ENCOUNTER 2025-08-12 09:53 | Outpatient (CLI) | payer MEDICARE, SELFPAY ==
[2025-08-12 10:16] VITALS: BP 104/60; PULSE 88; RESP 17; O2SAT 98
[2025-08-12] MEDS: MAGNESIUM SULFATE IN WATER 2 GM/50 ML PIGGYBACK IV (10:16)
[2025-08-12 10:45] VITALS: BP 116/70; PULSE 83; RESP 17; O2SAT 98
[2025-08-12 11:15] VITALS: BP 113/57; PULSE 69; RESP 16; O2SAT 98
== END 2025-08-12 23:59 | disposition home or self-care (01) ==
LOC: INF 09:54
PROVIDERS: PCP Nurse Practitioner Family; Visit Provider Nurse Practitioner Family
DX: I33.0 Acute and subacute infective endocarditis (principal)
CPT/HCPCS: 96365; J3475

== ENCOUNTER 2025-08-16 11:41 | Outpatient (CLI) | payer MEDICARE, SELFPAY ==
[2025-08-16 14:22] LABS: Alanine Aminotransferase 22 U/L (12-78); Albumin Level 3.9 g/dl (3.5-5.0); Albumin/Globulin Ratio 1.4 (1.1-1.8); Alkaline Phosphatase 174 U/L (38-126); Anion Gap 15.1 mEq/L (5-15); Aspartate Amino Transferase 38 U/L (14-36); Bilirubin,Total 0.7 mg/dl (0.2-1.3); Blood Urea Nitrogen 29 mg/dl (7-17); Calcium 9.3 mg/dl (8.4-10.2); Carbon Dioxide 17 mmol/L (22.0-30.0); Chloride 113 mmol/L (98-107); Creatinine,Serum 0.90 mg/dl (0.52-1.04); Estimated Glomerular Filt Rate 62 ml/min (>60); GFR (African American) 76 ML/MIN (>60); Globulin 2.8 g/dL (1.3-3.2); Glucose 82 mg/dl (74-100); Magnesium 1.2 mg/dl (1.6-2.3); Potassium 5.1 mmoL/L (3.5-5.1); Sodium 140 mmol/L (136-145); Total Protein,Serum 6.7 g/dl (6.3-8.2)
--- OUTSIDE RECORDS SUMMARY | 2025-08-17 16:50 | XMS_ITS | Clinical Summary ---
Author Organization [facility] Address [address] [facility] [address] [place] [address] Phone Care Team Providers Care Tripe Cooker Name Role Phone Unavailable Unavailable Conditions or Problems No information available. Medications No information available. Medications Administered No information available. Allergies, Adverse Reactions, Alerts No information available. Results No information available. Plan of Care No information available. Procedures No information available. Vital Signs No information available. Immunizations No information available. Advance Directives No information available.
--- OUTSIDE RECORDS SUMMARY | 2025-08-17 16:50 | XMS_ITS ---
Laboratory report Created on: July 30, 2025 CINDY GOMEZ : 1960 Sex: Female Author Name MARTHA SIMONS Organization Unknown PROBLEMS Problems List Code Description RESULTS Laboratory Orders Date Order Code Test 2025-07-27 [id number] CHLORIDE, URINE Laboratory Results Date LOINC Test Value Unit Reference Range Interpre tation 2025-07-278-4 CHLORIDE, URINE 98 MMOL/L
--- OUTSIDE RECORDS SUMMARY | 2025-08-17 16:50 | XMS_ITS ---
Laboratory report Created on: August 03, 2025 PATRICIAJEANETHCINDY : 1960 Sex: Female Author Organization Unknown PROBLEMS Problems List Code Description RESULTS Laboratory Orders Date Order Code Test 2023-12-16 [id number] RHEUMATOID FACTO R (RF) 2023-12-16 [id number] LIZ BY IFA RFX T ITER/PATTERN Laboratory Results Date LOINC Test Value Unit Reference Range Interpre tation 2023-12-16 [id number] RHEUMATOID FACTOR (RF) 12.7 IU/ML <14.0 2023-12-16 [id number] LIZ BY IFA RFX TITER/PATTERN P A 2023-12-1699459-1 HOMOGENEOUS PATTERN 1:80
--- OUTSIDE RECORDS SUMMARY | 2025-08-17 16:50 | XMS_ITS | Encounter Summary ---
Author Organization [facility] Address [address] [place] [address] Care Team Providers Care Head Of Design Name Role Phone Betty Antonio Primary Care [...] release of HIV test results or diagnoses. [id number] Health Encounter Details Date Type Department Care Team (Late st Contact Info) Description 02/26/2024 Ophth Exam [facility] Ophthalmology at [address] [place] [phone] Raul Raymond MD Social History Tobacco Use Types Packs/Day Years Used Date Smoking Tobacco: Every Day Cigarettes 1 7 Started: 2019 Smokeless Tobacco: Never Alcohol Use [...] time in the past 12 m [facility], were you homeless or living in a detention (including now)? No 02/22/2024 Comments No Sex and Gender Information Value Date Recorded Sex Assigned at Female 01/01/2024 11:14 AM EDT Legal Sex Female 1:33 PM EDT Gender Identity Female 01/01/2024 11:14 AM EDT Sexual Orientation Not on file documented as of this encounter Functional Status * Peripheral Vascular Question Answer Date of Assessment Author Peripheral Vascular (MARINOL) WDL 02/26/2024 8:30 AM EDT Catia Chavez RN documented as of this encounter Plan of Treatment Not on file documented as of this encounter Visit Diagnoses Not on filedocumented in this encounter Care Teams Head Of Design Relationship Specialty Start Date End Date Betty Antonio [address] [place] [address] [address] [place] [address] PCP - General 12/14/23 documented as of this encounter
--- OUTSIDE RECORDS SUMMARY | 2025-08-17 16:50 | XMS_ITS ---
Laboratory report Created on: August 03, 2025 CINDY GOMEZ : 1960 Sex: Female Author Name MARTHA SIMONS Organization Unknown PROBLEMS Problems List Code Description RESULTS Laboratory Orders Date Order Code Test 2025-07-27 [id number] OSMOLALITY, URIN E Laboratory Results Date LOINC Test Value Unit Reference Range Interpre tation 2025-07-27 [id number] OSMOLALITY, URINE 638 MOSMOL/KG
--- OUTSIDE RECORDS SUMMARY | 2025-08-17 16:50 | XMS_ITS | Encounter Summary ---
Author Organization [facility] Address [facility] [place] [address] Care Team Providers Care Portal Administrator Name Role Phone Betty Antonio Primary Care Provider [phone] Source Comments This information has been disclosed [...] release of HIV test results or diagnoses. [id number] Health Encounter Details Date Type Department Care Team (Late st Contact Info) Description 04/10/2024 Ophth Exam [facility] Ophthalmology at [address] [place] [phone] Elan Cates MD [address] [place] [address] Social History Tobacco Use Types Packs/Day Years Used Date Smoking Tobacco: Every Day Cigarettes 1 7 Started: 2019 Smokeless Tobacco: Never Alcohol Use Standard Drinks/Week Comments Not Currently 0 (1 standard drink = 0.6 oz pur e alcohol) [facility] Utilities Answer Date Recorded In [...] were you homeless or living in a halfway (including now)? No 04/04/2024 Yearly Questionnaire Answer [...] on filedocumented in this encounter Care Teams Portal Administrator Relationship Specialty Start Date End Date Betty Antonio [address] [place] [address] PCP - General 12/14/23 documented as of this encounter
--- OUTSIDE RECORDS SUMMARY | 2025-08-17 16:51 | XMS_ITS ---
Laboratory report Created on: August 03, 2025 CINDY GOMEZ : 1960 Sex: Female Author Organization Unknown PROBLEMS Problems List Code Description RESULTS Laboratory Orders Date Order Code Test 2025-02-19 [id number] FECAL FAT, QUALI TATIVE 2025-02-19 [id number] PANCREATIC ELAST ASE, FECAL Laboratory Results Date LOINC Test Value Unit Reference Range Interpre tation 2025-02-19 [id number] FATS, NEUTRAL NOR 2025-02-19 [id number] FATS, TOTAL NOR 2025-02-19 [id number] PANCREATIC ELASTASE, FECAL 21 UG ELAST./G >200 L
--- OUTSIDE RECORDS SUMMARY | 2025-08-17 16:51 | XMS_ITS ---
Laboratory report Created on: August 03, 2025 CINDY GOMEZ : 1960 Sex: Female Author Name MARTHA SIMONS Organization Unknown PROBLEMS Problems List Code Description RESULTS Laboratory Orders Date Order Code Test 2025-07-27 [id number] CHLORIDE, URINE Laboratory Results Date LOINC Test Value Unit Reference Range Interpre tation 2025-07-278-4 CHLORIDE, URINE 98 MMOL/L
--- OUTSIDE RECORDS SUMMARY | 2025-08-17 16:52 | XMS_ITS | Encounter Summary ---
Author Organization Healthcare Address [address] [place] [address] Care Team Providers Care Automotive Alignment Specialist Name Role Phone AntonioBetty zamorano [place] FRANK Primary Care Provider [phone] Encounter Details Date Type Department Care Team (Late st Contact Info) Description 04/04/2023 Billing Only Encounter [facility] Internal Medicine [address] [place] [address] Luz Jaime, INSERT MOLDING OPERATOR [address] [place] [address] Social History Tobacco Use Types [...] drink first t luzmaria in the morning (EYE-MAINFRAME SYSTEMS PROGRAMMER) to steady your nerves or to get [...] documented as of this encounter Care Teams Automotive Alignment Specialist Relationship Specialty Start Date End Date Betty Antonio APRN [address] [place] [address] PCP - General 05/31/21 documented as of this encounter
--- OUTSIDE RECORDS SUMMARY | 2025-08-17 16:52 | XMS_ITS ---
Laboratory report Created on: August 03, 2025 CINDY GOMEZ : 1960 Sex: Female Author Organization Unknown PROBLEMS Problems List Code Description RESULTS Laboratory Orders Date Order Code Test 2024-04-02 [id number] ORGANISM IDENTIF ICATION, YEAST Laboratory Results Date LOINC Test Value Unit Reference Range Interpre tation 2024-04-02 [id number] ORGANISM IDENTIFICATION, YEAST FINAL A 2024-04-02 580-1 RESULT 1 ROSS A
--- OUTSIDE RECORDS SUMMARY | 2025-08-17 16:52 | XMS_ITS | Clinical Summary ---
Author Organization [facility] Address [address] [place] [address] Phone Care Team Providers Care Food Service Order Clerk Name Role Phone Unavailable Primary Care [...]
--- OUTSIDE RECORDS SUMMARY | 2025-08-17 16:52 | XMS_ITS | Clinical Summary ---
Author Organization [facility] Address [address] [place] [address] Care Team Providers Care Business Account Leader Name Role Phone Betty Antonio Primary Care Provider [phone] Source Comments This information has been disclosed [...] therelease of HIV test results or diagnoses. [id number] Allergies Active Allergy Reactions Criticality Noted [...] (LYRICA) 300 MG capsuleIndicati ons:Idiopathic chronic pancreatitis ([facility]) TAKE 1 CAPSULE BY MOUTH TWICE DAILY FOR NEUROPATHIC PAIN 60 capsule 06/07/20 25 025 Discontinued Active Problems Patient Care Coordination No te Formatting of this note migh t be different from the original. [employer] 4238.Julio Winston MSN RN. she/hers. [facility] Infectious Diseases -- OPAT (Outpatient Parenteral Antimicrobial Therapy). [phone]. Problem Noted Date Diagnosed Date Tinnitus of both ears 02/02/2025 Chronic pancreatitis 06/16/2024 Fungemia 04/06/2024 Subacute bacterial endocarditis 02/26/2024 Encounters Date Type Department Care Team Description 07/20/[address] [facility] Surgical Oncology at [address] [phone] Ilia Wall MD Idiopathic [place] 06/01/[address] [facility] Surgical Oncology at [address] [phone] Ilia Wall MD Idiopathic chronic [place]itis [place] from Last 3 Months Family History Medical History Relation Comments Hypertension Brother Depression Father Diabetes Father Hypertension Father Relation Status Comments Brother Father Social History Tobacco Use Types Packs/Day Years Used Date Smoking Tobacco: Every Day Cigarettes 1 7 Started: 2018 Smokeless Tobacco: Never Tobacco Cessation:Ready to Q uit: Not Asked; Counseling Given: Not Answered Alcohol Use Standard Drinks/Week Comments Not Currently 0 (1 standard drink = 0.6 oz pur e alcohol) [facility] Utilities Answer Date Recorded In the past 12 months has [employer], oil, or water [employer] threatened to shut off services in your [...] in the past 12 m [facility], were you homeless or living in a [...] Ab Nonreactive Nonreactive 12/14/2023 4:24 PM EDT [facility] Comment:Health Department no tified in accordance with reportable infectious disease guidelines. HCVAB Number 0.04 0.00 - 0.79 S/CO 12/14/2023 4:24 PM EDT [facility] Serum 12/14/2023 3:11 PM EDT 12/14/2023 3:24 PM EDT us Olivia Estevez MD LAB BLOOD ORDERABLES Final Resul t [facility] [address] [place] [address], [facility] from Last 3 Months or Most Recently Relevant to Health Maintenance Insurance [employer] CHOICE PPO MEDICARE Advance Directives For more information, please contact: [phone] * Full Code (Latest Code Status on File) Date Activated Date Inactivated Comments 07/08/2024 2:33 PM 07/14/2024 11:02 PM Question Answer Comments Intubate for Resp Distress: Yes Initiate CPR/ACLS in event of cardiac arrest: Alvaro merlos * Full Code Date Activated Date Inactivated Comments 04/29/2024 7:43 AM 05/02/2024 3:21 PM * Full Code Date Activated Date Inactivated Comments 04/04/2024 9:23 PM 04/21/2024 9:00 PM * Full Code Date Activated Date Inactivated Comments 02/21/2024 6:53 PM 02/27/2024 12:09 AM Care Teams Business Account Leader Relationship Specialty Start Date End Date Betty Antonio [facility] [place] [address] PCP - General 12/14/23
--- OUTSIDE RECORDS SUMMARY | 2025-08-17 16:52 | XMS_ITS | Clinical Summary ---
Author Organization [facility] ([place], [place], [place], [place], [place]) Address [address] [place] [address] Care Team Providers Care Collection Agent Name Role Phone Betty Antonio CONSTRUCTION TRADES CONTRACTOR Primary Care Provider Allergies Active Allergy Reactions [...] Date Gordo rded Speak language other than Pashto at home Not on file 10/19/2023 Want [...] Advance Directives For more information, please contact: [phone] * Full Code (Latest Code Status on File) Date Activated Date Inactivated Comments 10/19/2023 6:17 PM 10/26/2023 4:31 PM Care Teams Collection Agent Relationship Specialty Start Date End Date Betty Antonio, CONSTRUCTION TRADES CONTRACTOR [address] [address] PCP - General Nurse Practitioner 10/19/23
--- OUTSIDE RECORDS SUMMARY | 2025-08-17 16:52 | XMS_ITS | Encounter Summary ---
Author Organization [facility] Address [facility] [place] [address] Care Team Providers Care Audio/Video Engineer Name Role Phone Betty Antonio Primary Care Provider [phone] Source Comments This information has been disclosed [...] release of HIV test results or diagnoses. [id number] Health Reason for Visit * Reason Comments Medication Refill Encounter Details Date Type Department Care Team (Late st Contact Info) Description 07/20/2025 Refill [facility] Surgical Oncology at [facility] [address] [place] [phone] Ilia Wall MD [address] [place] [address]. [place] [phone] Idiopathic chronic pancreatitis ([facility]) Social History Tobacco Use Types Packs/Day Years Used Date Smoking Tobacco: Every Day Cigarettes 1 7 Started: 2019 Smokeless Tobacco: Never Alcohol Use Standard Drinks/Week Comments Not Currently 0 (1 standard drink = 0.6 oz pur e alcohol) [facility] Utilities Answer Date Recorded [...] any time in the past 12 m [facility], were you homeless or living in a senior care (including now)? No 07/11/2024 Yearly Questionnaire Answer [...] (CMS-HCC) documented in this encounter Care Teams Audio/Video Engineer Relationship Specialty Start Date End Date Betty Antonio [address] [place] [address] PCP - General 12/14/23 documented as of this encounter
--- OUTSIDE RECORDS SUMMARY | 2025-08-17 16:52 | XMS_ITS | Encounter Summary ---
Author Organization [place] [address] Care Team Providers Care Cover Remover Name Role Phone Unavailable Primary Care Provider Unavailabl e Encounter Details Date Type Department Care Team (Late st Contact Info) Description 03/02/2024 Lab Requisition [facility] [address] [place] [facility] Madison Metcalf MD [address] [place] [id number] Acute and subacute infective endocarditis Social History [...] ORDERABLES Final Resu lt Performing Organization Address [facility] Co de Phone Number [facility] [address] [place] [address] * EXTRA GOLD SST (03/02/2024 10:30 AM EDT) Blood VENOUS BLOOD / Unknown 03/02/2024 10:30 AM EDT 03/02/2024 7:12 PM EDT us Madison Metcalf MD CHEMISTRY ORDERABLES Final Resul t Performing Organization Address [facility] de Phone Number [facility] [address] [place] [address] * (ABNORMAL) C-REACTIVE PROTEIN (03/02/2024 10:30 AM EDT) CRP 6.89(H) <=5.00 mg/L 03/02/2024 8:25 PM EDT [facility] Blood VENOUS BLOOD / Unknown 03/02/2024 10:30 AM EDT 03/02/2024 7:12 PM EDT Result Lashell Metcalf MD CHEMISTRY ORDERABLES Final Resul t Performing Organization Address [facility] de Phone Number [facility] [address] [facility] [address] [place] [address] * (ABNORMAL) SEDIMENTATION RATE AUTOMATED (03/02/2024 10:30 AM EDT) Sed Rate 39(H) 0 - 30 mm/hr 03/02/2024 7:58 PM EDT [facility] Blood VENOUS BLOOD / Unknown 03/02/2024 10:30 AM EDT 03/02/2024 7:12 PM EDT us Madison Metcalf MD HEMATOLOGY ORDERABLES Final Resu lt [facility] [address] [facility] , [place] [address] * (ABNORMAL) COMPREHENSIVE METABOLIC PANEL (03/02/2024 10:30 [...] mL/min/1.7 3 m2 03/02/2024 8:25 PM EDT [facility] Comment:Estimated GFR was ca lculated using the CKD-EPIcr (2020) equation refit without race. The equation is recommended by the National Kidney Foundation - [place] Society of Nephrology Task Force. Blood VENOUS BLOOD / Unknown 03/02/2024 10:30 AM EDT 03/02/2024 7:12 PM EDT us Madison Metcalf MD CHEMISTRY ORDERABLES Final Resul t [facility] [address] [facility] , [place] [address] [facility] [address] [place] [address] * (ABNORMAL) CBC WITH DIFF [...] 03/02/2024 7:58 PM EDT [facility] MPV 10.8 8.8 - 12.5 fL 03/02/2024 7:58 PM EDT [facility] Neut Percent 52.7 % 03/02/2024 7:58 PM EDT [facility] Comment:Neutrophils equals s egs plus bands Imm Gran% 0.6 % 03/02/2024 7:58 PM EDT [facility] Comment:Automated count of m etamyelocytes, myelocytes and promyelocytes. Lymph Percent 30.8 % 03/02/2024 7:58 PM EDT [facility] Weakley Percent 5.8 % 03/02/2024 7:58 PM EDT [facility] Eos Percent 8.6 % 03/02/2024 7:58 PM EDT [facility] Baso Percent 1.5 % 03/02/2024 7:58 PM EDT [facility] Neut # 3.8 1.6 - 6.1 x10(3)/[facility] 03/02/2024 7:58 PM EDT [facility] Comment:Neutrophils equals s egs plus bands IMMGRAN# 0.0 0.0 - 0.1 x10(3)/[facility] 03/02/2024 7:58 PM EDT [facility] Comment:Automated count of m etamyelocytes, myelocytes and promyelocytes. An absolute IG <0.1 is reported as 0.0. Lymph # 2.2 1.2 - 3.9 x10(3)/[facility] 03/02/2024 7:58 PM EDT [facility] Weakley # 0.4 0.3 - 0.9 x10(3)/[facility] 03/02/2024 7:58 PM EDT [facility] Eos# 0.6(H) 0.0 - 0.5 x10(3)/[facility] 03/02/2024 7:58 PM EDT [facility] Baso # 0.1 0.0 - 0.1 x10(3)/[facility] 03/02/2024 7:58 PM EDT [facility] Blood VENOUS BLOOD / Unknown 03/02/2024 10:30 AM EDT 03/02/2024 7:12 PM EDT us Madison Metcalf MD HEMATOLOGY ORDERABLES Final Resu lt [facility] [address] [facility] , [address] [place] [id number] documented in this encounter Visit Diagnoses Diagnosis 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
--- OUTSIDE RECORDS SUMMARY | 2025-08-17 16:52 | XMS_ITS | Clinical Summary ---
[facility] Address [address] [place] [address] Care Team Providers Care Flag Football Coach Name Role Phone PacoBetty MONIKA Primary Care Provider + [phone] Allergies Active Allergy Reactions Criticality Noted Date [...] 4 MG disintegrating tablet 3 Active Creon 536[address] units capsule delayed-release particles capsule Take 1 [...] 50+ (1 of 2 - PCV) 1977 TDAP/TD VACCINES (1 - Tdap) 11/08/1996 11/07/1996 MAMMOGRAM 1998 COLOGUARD 2003 COLON CANCER SCREENING 5 YEA R SIGMOIDOSCOPY 2003 CT COLONOGRAPHY 2003 FECAL OCCULT BLOOD TEST 2003 FIT Testing (1 year) 2003 ZOSTER VACCINE (1 of 2) 02/15/2008 COVID-19 Vaccine (2 - Jansse n risk series) 10/03/2021 09/05/2021, 01/10/2021 ANNUAL WELLNESS VISIT 04/26/2022 INFLUENZA VACCINE 04/02/2025 09/05/2021, , 09/12/2015 COLONOSCOPY 05/09/2033 05/09/2023 COLORECTAL CANCER SCREENING 05/09/2033 HEMOGLOBIN A1C Discontinued 01/15/2023, 01/15/2023 HEPATITIS C SCREENING Completed 04/01/2023 Medical Devices Implanted Type Area Professor Of Biology Device Identifier Shelf Expiration Date Model / Serial / Lot Scrw Hernandez Sd/St [id number] 6.5x85mm - [id number] Implanted:Qty : 2 on 04/13/2022 by Juan Bonds MD at [facility] Implant Left: Hip [employer] [id number] / / Scrw Hernandez Sd/St [id number] 6.5x80mm - [id number] Implanted:Qty : 1 on 04/13/2022 by Juan Bonds MD at [facility] Implant Left: Hip [employer] [id number] / / Insurance [employer] MEDICARE ADVANTAGE MEDICARE [...] Of Support Discussed With: Patient Care Teams Flag Football Coach Relationship Specialty Start Date End Date Betty Antonio APRN PCP - General Internal Medicine 04/14/22
--- OUTSIDE RECORDS SUMMARY | 2025-08-17 16:52 | XMS_ITS | Clinical Summary ---
Author Organization [facility] Address [address] [place] [address] Care Team Providers Care Net Wpf Developer Name Role Phone Leila Townsend MD Primary Care Provider + [phone] Social History Tobacco Use Types Packs/Day Years Used Date Smoking Tobacco: Never Assessed Comments Unknown Sex and Gender Information Value Date Recorded Sex Assigned at Not on file Legal Sex Female 3:11 PM EDT Gender Identity Not on file Sexual Orientation Not on file Plan of Treatment Not on file Insurance [employer] Care Teams Net Wpf Developer Relationship Specialty Start Date End Date Leila Townsend MD [address] [facility] PCP - General Family Medicine 07/12/14
--- OUTSIDE RECORDS SUMMARY | 2025-08-17 16:52 | XMS_ITS | Encounter Summary ---
[facility] Address [address] [place] [address] Care Team Providers Care Human Resource Statistician Name Role Phone Betty Antonio WHEEL ALIGNMENT TECHNICIAN Primary Care Provider + [phone] Reason for Visit * Reason Comments Med Refill Encounter Details Date Type Department Care Team (Late st Contact Info) Description 07/30/2022 Refill [facility] [address] [place] [address] Juan Bonds MD [address] [place] [address] Closed fracture of neck of left femur [...] documented as of this encounter Care Teams Human Resource Statistician Relationship Specialty Start Date End Date Betty Antonio APRN PCP - General Internal Medicine 04/14/22 documented as of this encounter
--- OUTSIDE RECORDS SUMMARY | 2025-08-17 16:52 | XMS_ITS ---
Laboratory report Created on: August 03, 2025 CINDY GOMEZ : 1960 Sex: Female Author Organization Unknown PROBLEMS Problems List Code Description RESULTS Laboratory Orders Date Order Code Test 2024-01-13 [id number] MAGNESIUM, RBC Laboratory Results Date LOINC Test Value Unit Reference Range Interpre tation 2024-01-13 [id number] MAGNESIUM, RBC 5.1 MG/DL 3.7-7.0
--- OUTSIDE RECORDS SUMMARY | 2025-08-17 16:52 | XMS_ITS | Clinical Summary ---
Author Organization [facility] Address [address] [place] [address] Care Team Providers Care Edger Feeder Name Role Phone AntonioBetty zamorano [place] FRANK Primary Care Provider +1- [phone] Allergies Active Allergy Reactions Criticality Noted Date [...] time each day. Active cholecalciferol 250 MCG (00574 UT) capsule Take 5,000 Units by mouth [...] place to sleep or slept in a alf (including now)? No 09/27/2023 CAGE ASSESSMENT Answer [...] drink first t luzmaria in the morning (EYE-ORE CHARGER) to steady your nerves or to get [...] SDOH Screenings 02/15/1976 [facility]-Adult SDOH Screenings 02/15/1976 [facility]-Pneumococcal Vaccine: 50+ Years (1 of 2 - PCV) 1977 [facility]-DTaP,Tdap,and Td Vaccines (1 - Tdap) 11/08/1996 11/07/1996 CT Colonography 2003 FIT-DNA 2003 FIT 2003 FOBT 2003 Sigmoidoscopy 2003 [facility]-Breast Cancer Screening 02/15/2008 [facility]-Zoster Vaccines (1 of 2) 02/15/2008 [facility]-Depression Screening 11/27/2024 11/28/2023 [id number] Vaccine (3 - season) 2025 09/05/2021, 01/10/2021 [facility]-Influenza Vaccine (#1) 05/03/202509/05, 09/05/2021, 06/06/2020, Additional history exists [facility]-RSV Vaccine: 60+ Years or (1 - 1-dose 75+ series) 2033 Colonoscopy 05/06/2033 05/09/2023 [facility]-Colorectal Cancer Screening 05/06/2033 [facility]-Diabetes: Hemoglobin A1C Discontinued 01/15/2023 [facility]-Hepatitis C Screening Completed 04/01/2023, HPV Vaccines (No Doses Required) Completed [facility]-HIB Vaccines Aged Out No longer e [...] this topic Medical Devices Implanted Type Area Tablet Technician Device Identifier Shelf Expiration Date Model / Serial / Lot Stent Biliary 2.3 X 50mm - [id number] Implanted:Qty: 1 on 02/25/2023 by Flavio Noble MD at [facility]-[id number] 10/04/2025 [id number] / / [id number] Stent Biliary 2.3 X 50mm - [id number] Implanted:Qty: 1 on 02/25/2023 by Flavio Noble MD at [facility]-[id number] 11/12/2025 [id number] / / [id number] Procedures Procedure Name Priority Date/Time Associated Diagnosis [...] Lolly Johnson MD Proceduralist Celso Zimmerman Endo Opening Machine Cleaner Preprocedure A history and physical has been [...] of bowel preparation was evaluated using the [place] Bowel Preparation Scale with scores of: right [...] hemorrhoids The entire colon appeared normal. Flavio Nbole MD GI PROCEDURE ORDERABLES Rachael l Result * Hepatitis C Antibody - ED (04/01/2023 3:49 PM EDT) Hepatitis C Antibody Negative Negative 04/01/2023 4:45 PM EDT [facility] Blood Venous blood specimen / Unknown Venipuncture / Unknown 04/01/2023 3:49 PM EDT 04/01/2023 4:03 PM EDT Juan Jose Novak MD LAB BLOOD ORDERABLES Final Resul t [facility] [address] [place] [address] * Hemoglobin A1c (01/15/2023 5:04 PM EDT) [...] Adults <6.0% Children and Adolescents <7.5% Source: [place] Diabetes [employer]. Standards of medical care in diabetes,2017. Diabetes Care.2017:40 (suppl 1):S1-S135. HbA1c assay performed by an ion-exchange chromatography method that is certified traceable to the DCCT. us Albert SANCHEZ LAB BLOOD ORDERABLES Final Re sult [facility] [address] [place] [address] from Last 3 Months or Most Recently Relevant to Health Maintenance Insurance [facility] MEDICARE Advance Directives * Full Code [...] Patient has decision-making capacity? Yes Care Teams Edger Feeder Relationship Specialty Start Date End Date Betty Antonio APRN [address] [place] [address] PCP - General 05/31/21
--- OUTSIDE RECORDS SUMMARY | 2025-08-17 16:52 | XMS_ITS | Referral Summary ---
Author Organization [employer] ([place], [place], [place], [place], [place]) Address [address] [place] [address] Care Team Providers Care Home Appliance Washing Machine Mechanic Name Role Phone Betty Antonio RETAIL LOSS PREVENTION SPECIALIST Primary Care Provider Allergies Active Allergy Reactions [...] Date Gordo rded Speak language other than [place] at home Not on file 10/19/2023 Want [...] Advance Directives For more information, please contact: [phone] * Full Code (Latest Code Status on File) Date Activated Date Inactivated Comments 10/19/2023 6:17 PM 10/26/2023 4:31 PM Care Teams Home Appliance Washing Machine Mechanic Relationship Specialty Start Date End Date Betty Antonio, MONIKA [address] [address] PCP - General Nurse Practitioner 10/19/23
--- OUTSIDE RECORDS SUMMARY | 2025-08-17 16:52 | XMS_ITS ---
Laboratory report Created on: August 03, 2025 CINDY GOMEZ : 1960 Sex: Female Author Organization Unknown PROBLEMS Problems List Code Description RESULTS Laboratory Orders Date Order Code Test 2023-12-16 542649 STOOL CULTURE Laboratory Results Date LOINC Test Value Unit Reference Range Interpre tation 2023-12-16 [id number] SALMONELLA/SHIGE LLA SCREEN FINAL 2023-12-16 6463-4 RESULT 1 NSS 2023-12-16 6331-3 CAMPYLOBACTER CULTURE FINAL 2023-12-16 6463-4 RESULT 1 NCI 2023-12-16 52201-3 E COLI SHIGA TOXIN EIA N NEGATI VE
--- OUTSIDE RECORDS SUMMARY | 2025-08-17 16:52 | XMS_ITS | Encounter Summary ---
Author Organization [facility] Address [address] [place] [address] Care Team Providers Care Tongue Lining Stitcher Name Role Phone AntonioVickishanna Coleman APRN Primary Care Provider [phone]- [phone] Reason for Visit * Reason Comments Med Refill Encounter Details Date Type Department Care Team (Late st Contact Info) Description 08/07/2023 Refill [facility] [address], [address] [place] [address] Albert Fierro PA [address] [place] [address] Social History Tobacco Use Types [...] drink first t luzmaria in the morning (EYE-SUPPORT ARCHITECT) to steady your nerves or to get [...] 30 day supply with 2 refill(s) to [facility]. documented in this encounter Plan [...] documented as of this encounter Care Teams Tongue Lining Stitcher Relationship Specialty Start Date End Date Betty Antonio APRN [address] [place] [address] PCP - General 05/31/21 documented as of this encounter
--- OUTSIDE RECORDS SUMMARY | 2025-08-17 16:52 | XMS_ITS ---
Laboratory report Created on: August 03, 2025 CINDY GOMEZ : 1960 Sex: Female Author Name SHELIA SANTORO Organization Unknown PROBLEMS Problems List Code Description RESULTS Laboratory Orders Date Order Code Test 2025-07-26 [id number] ANTINUCLEAR AB M ULTIPLEX RFX 9 2025-07-26 [id number] COPPER, SERUM OR PLASMA 2025-07-26 [id number] ZINC, PLASMA OR SERUM Laboratory Results Date LOINC Test Value Unit Reference Range Interpre tation 2025-07-26 [id number] LIZ DIRECT N NEGATIVE 2025-07-26 5631-7 COPPER, SERUM OR PLASMA 95 UG/DL 80-15 8 2025-07-26 5763-8 ZINC, PLASMA OR SERUM 90 UG/DL 44-115
== END 2025-08-16 23:59 | disposition home or self-care (01) ==
LOC: LAB.DROPOF 08-17 16:49
PROVIDERS: PCP Nurse Practitioner Family; Visit Provider Nurse Practitioner Family
DX: E83.42 Hypomagnesemia (principal); E87.8 Other disorders of electrolyte and fluid balance, not elsewhere classified; N25.89 Other disorders resulting from impaired renal tubular function
CPT/HCPCS: 80053; 83735

== ENCOUNTER 2025-08-18 14:59 | Outpatient (CLI) | payer MEDICARE, SELFPAY ==
[2025-08-18] MEDS: ALBUTEROL 0.083% 2.5 MG/3 ML NEB IH (15:57)
--- NOTE | 2025-08-18 15:58 | PC.NURSE ---
Pre and Post Spirometry completed without incident, Albuterol 0.083% given via HHN, per written protocol, Pt tolerated tx well.
--- OUTSIDE RECORDS SUMMARY | 2025-08-18 16:14 | XMS_ITS | Clinical Summary ---
Author Organization [facility] Address [address] [place] [address] Phone Care Team Providers Care Clam Grader Name Role Phone Unavailable Unavailable Conditions or Problems No information available. Medications No information available. Medications Administered No information available. Allergies, Adverse Reactions, Alerts No information available. Results No information available. Plan of Care No information available. Procedures No information available. Vital Signs No information available. Immunizations No information available. Advance Directives No information available.
--- OUTSIDE RECORDS SUMMARY | 2025-08-18 16:15 | XMS_ITS | Encounter Summary ---
Author Organization [facility] Address [facility] [place] [address] Care Team Providers Care Account Associate Name Role Phone Betty Antonio Primary Care Provider [phone] Source Comments This information has been disclosed [...] release of HIV test results or diagnoses. [id number] Health Encounter Details Date Type Department Care Team (Late st Contact Info) Description 04/10/2024 Ophth Exam [facility] Ophthalmology at [address] [place] [phone] Elan Cates MD [address] [place] [address] Social History Tobacco Use Types Packs/Day Years Used Date Smoking Tobacco: Every Day Cigarettes 1 7 Started: 2019 Smokeless Tobacco: Never Alcohol Use Standard Drinks/Week Comments Not Currently 0 (1 standard drink = 0.6 oz pur e alcohol) [facility] Utilities Answer Date Recorded In the [...] living in a detention (including now)? No 04/04/2024 Yearly Questionnaire Answer [...] on filedocumented in this encounter Care Teams Account Associate Relationship Specialty Start Date End Date Betty Antonio [address] [place] [address] PCP - General 12/14/23 documented as of this encounter
--- OUTSIDE RECORDS SUMMARY | 2025-08-18 16:15 | XMS_ITS | Clinical Summary ---
Author Organization [facility] Address [address] [place] [address] Phone Care Team Providers Care Pharmacometrician Name Role Phone Unavailable Primary Care Provider [...]
--- OUTSIDE RECORDS SUMMARY | 2025-08-18 16:15 | XMS_ITS | Encounter Summary ---
Author Organization [facility] Address [facility] [place] [address] Care Team Providers Care Corporate Ethics Officer Name Role Phone Betty Antonio Primary Care Provider [phone] Source Comments This information has been disclosed [...] release of HIV test results or diagnoses. [id number] Health Reason for Visit * Reason Comments Medication Refill Encounter Details Date Type Department Care Team (Late st Contact Info) Description 07/20/2025 Refill [facility] Surgical Oncology at [facility] [address] [place] [phone] Ilia Wall MD [address] [place] [address]. [place] [phone] Idiopathic chronic pancreatitis ([facility]) Social History Tobacco Use Types Packs/Day Years Used Date Smoking Tobacco: Every Day Cigarettes 1 7 Started: 2019 Smokeless Tobacco: Never Alcohol Use Standard Drinks/Week Comments Not Currently 0 (1 standard drink = 0.6 oz pur e alcohol) [facility] Utilities Answer Date Recorded In [...] were you homeless or living in a skilled nursing (including now)? No 07/11/2024 Yearly Questionnaire Answer [...] (CMS-HCC) documented in this encounter Care Teams Corporate Ethics Officer Relationship Specialty Start Date End Date Betty Antonio [address] [place] [address] PCP - General 12/14/23 documented as of this encounter
--- OUTSIDE RECORDS SUMMARY | 2025-08-18 16:15 | XMS_ITS | Clinical Summary ---
Author Organization [facility] Address [address] [place] [address] Care Team Providers Care Assistant Director Of Residence Life Name Role Phone Leila Townsend MD Primary Care Provider + [phone] Social History Tobacco Use Types Packs/Day Years Used Date Smoking Tobacco: Never Assessed Comments Unknown Sex and Gender Information Value Date Recorded Sex Assigned at Not on file Legal Sex Female 3:11 PM EDT Gender Identity Not on file Sexual Orientation Not on file Plan of Treatment Not on file Insurance ANTHEM Care Teams Assistant Director Of Residence Life Relationship Specialty Start Date End Date Leila Townsend MD [address] [facility] PCP - General Family Medicine 07/12/14
--- OUTSIDE RECORDS SUMMARY | 2025-08-18 16:15 | XMS_ITS | Encounter Summary ---
Author Organization [place] [address] Care Team Providers Care Culinary Manager Name Role Phone Unavailable Primary Care Provider Unavailabl e Encounter Details Date Type Department Care Team (Late st Contact Info) Description 03/02/2024 Lab Requisition [facility] [address] [place] [facility] Madison Metcalf MD [address] [place] [id number] Acute and subacute infective endocarditis Social History [...] ORDERABLES Final Resu lt Performing Organization Address [facility] Co de Phone Number [facility] [address] [place] [address] * EXTRA GOLD SST (03/02/2024 10:30 AM EDT) Blood VENOUS BLOOD / Unknown 03/02/2024 10:30 AM EDT 03/02/2024 7:12 PM EDT us Madison Metcalf MD CHEMISTRY ORDERABLES Final Resul t Performing Organization Address [facility] de Phone Number [facility] [address] [place] [address] * (ABNORMAL) C-REACTIVE PROTEIN (03/02/2024 10:30 AM EDT) CRP 6.89(H) <=5.00 mg/L 03/02/2024 8:25 PM EDT [facility] Blood VENOUS BLOOD / Unknown 03/02/2024 10:30 AM EDT 03/02/2024 7:12 PM EDT Result Lashell Metcalf MD CHEMISTRY ORDERABLES Final Resul t Performing Organization Address [facility] de Phone Number [facility] [address], [place] [address] * (ABNORMAL) SEDIMENTATION RATE AUTOMATED (03/02/2024 10:30 AM EDT) Sed Rate 39(H) 0 - 30 mm/hr 03/02/2024 7:58 PM EDT [facility] [employer] Blood VENOUS BLOOD / Unknown 03/02/2024 10:30 AM EDT 03/02/2024 7:12 PM EDT us Madison Metcalf MD HEMATOLOGY ORDERABLES Final Resu lt [facility] [address] [facility] , [place] [address] * (ABNORMAL) COMPREHENSIVE METABOLIC PANEL (03/02/2024 10:30 [...] 3 m2 03/02/2024 8:25 PM EDT [facility] Comment:Estimated GFR was ca lculated using the CKD-EPIcr (2020) equation refit without race. The equation is recommended by the National Kidney Foundation - [place] Society of Nephrology Task Force. Blood VENOUS BLOOD / Unknown 03/02/2024 10:30 AM EDT 03/02/2024 7:12 PM EDT us Madison Metcalf MD CHEMISTRY ORDERABLES Final Resul t [facility] [address] [facility] , [place] [address] [facility] [address] [place] [address] * (ABNORMAL) CBC WITH DIFF [...] 03/02/2024 7:58 PM EDT [facility] MPV 10.8 8.8 - 12.5 fL 03/02/2024 7:58 PM EDT [facility] Neut Percent 52.7 % 03/02/2024 7:58 PM EDT [facility] Comment:Neutrophils equals s egs plus bands Imm Gran% 0.6 % 03/02/2024 7:58 PM EDT [facility] Comment:Automated count of m etamyelocytes, myelocytes and promyelocytes. Lymph Percent 30.8 % 03/02/2024 7:58 PM EDT [facility] [place] Percent 5.8 % 03/02/2024 7:58 PM EDT [facility] Eos Percent 8.6 % 03/02/2024 7:58 PM EDT [facility] Baso Percent 1.5 % 03/02/2024 7:58 PM EDT [facility] Neut # 3.8 1.6 - 6.1 x10(3)/[facility] 03/02/2024 7:58 PM EDT [facility] Comment:Neutrophils equals s egs plus bands IMMGRAN# 0.0 0.0 - 0.1 x10(3)/[facility] 03/02/2024 7:58 PM EDT [facility] Comment:Automated count of m etamyelocytes, myelocytes and promyelocytes. An absolute IG <0.1 is reported as 0.0. Lymph # 2.2 1.2 - 3.9 x10(3)/[facility] 03/02/2024 7:58 PM EDT [facility] [place] # 0.4 0.3 - 0.9 x10(3)/[facility] 03/02/2024 7:58 PM EDT [facility] Eos# 0.6(H) 0.0 - 0.5 x10(3)/[facility] 03/02/2024 7:58 PM EDT [facility] Baso # 0.1 0.0 - 0.1 x10(3)/[facility] 03/02/2024 7:58 PM EDT [facility] Blood VENOUS BLOOD / Unknown 03/02/2024 10:30 AM EDT 03/02/2024 7:12 PM EDT us Madison Metcalf MD HEMATOLOGY ORDERABLES Final Resu lt [facility] [employer] [employer] [address] [facility] , [address] [place] [id number] documented in this encounter Visit Diagnoses Diagnosis 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
--- OUTSIDE RECORDS SUMMARY | 2025-08-18 16:15 | XMS_ITS | Clinical Summary ---
Author Organization [employer] ([place], [place], [place], [place], [place]) Address [address] [place] [address] Care Team Providers Care Coal Trimmer Machine Operator Name Role Phone Betty Antonio LITHOGRAPHER APPRENTICE Primary Care Provider Allergies Active Allergy Reactions [...] Advance Directives For more information, please contact: [phone] * Full Code (Latest Code Status on File) Date Activated Date Inactivated Comments 10/19/2023 6:17 PM 10/26/2023 4:31 PM Care Teams Coal Trimmer Machine Operator Relationship Specialty Start Date End Date Betty Antonio, LITHOGRAPHER APPRENTICE [address] [address] PCP - General Nurse Practitioner 10/19/23
--- OUTSIDE RECORDS SUMMARY | 2025-08-18 16:15 | XMS_ITS | Referral Summary ---
Author Organization [employer] ([place], [place], [place], [place], [place]) Address [address] [place] [address] Care Team Providers Care Sow Farm Manager Name Role Phone Betty Antonio COAL PICKER Primary Care Provider Allergies Active Allergy Reactions [...] Advance Directives For more information, please contact: [phone] * Full Code (Latest Code Status on File) Date Activated Date Inactivated Comments 10/19/2023 6:17 PM 10/26/2023 4:31 PM Care Teams Sow Farm Manager Relationship Specialty Start Date End Date Betty Antonio, MONIKA [address] [address] PCP - General Nurse Practitioner 10/19/23
--- OUTSIDE RECORDS SUMMARY | 2025-08-18 16:15 | XMS_ITS | Encounter Summary ---
Author Organization [facility] Address [facility] [place] [address] Care Team Providers Care National Sales Trainer Name Role Phone Betty Antonio Primary Care Provider [phone] Source Comments This information has been disclosed [...] release of HIV test results or diagnoses. [id number] Health Reason for Visit * Reason Comments Medication Refill Encounter Details Date Type Department Care Team (Late st Contact Info) Description 06/01/2025 Refill [facility] Surgical Oncology at [facility] [address] [place] [phone] lIia Wall MD [address] [place] [address]. [place] [phone] Idiopathic chronic pancreatitis ([facility]) Social History Tobacco Use Types Packs/Day Years Used Date Smoking Tobacco: Every Day Cigarettes 1 7 Started: 2019 Smokeless Tobacco: Never Alcohol Use Standard Drinks/Week Comments Not Currently 0 (1 standard drink = 0.6 oz pur e alcohol) [facility] Utilities Answer Date Recorded In the [...] time in the past 12 m [facility], were you homeless or living in a custodial (including now)? No 07/11/2024 Yearly Questionnaire Answer [...] (CMS-HCC) documented in this encounter Care Teams National Sales Trainer Relationship Specialty Start Date End Date Betty Antonio [address] [place] [address] PCP - General 12/14/23 documented as of this encounter
--- OUTSIDE RECORDS SUMMARY | 2025-08-18 16:15 | XMS_ITS | Encounter Summary ---
Author Organization [facility] Address [address] [place] [address] Care Team Providers Care Iron Pourer Name Role Phone Betty Antonio Primary Care [...] release of HIV test results or diagnoses. [id number] Health Encounter Details Date Type Department Care Team (Late st Contact Info) Description 02/26/2024 Ophth Exam [facility] Ophthalmology at [address] [place] [phone] Raul Raymond MD Social History Tobacco Use Types Packs/Day Years Used Date Smoking Tobacco: Every Day Cigarettes 1 7 Started: 2019 Smokeless Tobacco: Never Alcohol Use Standard Drinks/Week Comments Not Currently 0 (1 standard drink = 0.6 oz pur e alcohol) [facility] Utilities Answer Date Recorded In [...] [place] [facility] (including now)? No 02/22/2024 Comments No Sex [...] on filedocumented in this encounter Care Teams Iron Pourer Relationship Specialty Start Date End Date Betty Antonio [address] [place] [address] [place] [address] PCP - General 12/14/23 documented as of this encounter
--- OUTSIDE RECORDS SUMMARY | 2025-08-18 16:15 | XMS_ITS | Encounter Summary ---
Author Organization [facility] Address [address] [place] [address] Care Team Providers Care Division Supervisor Name Role Phone AntonioVickishanna Coleman APRN Primary Care Provider [phone] Reason for Visit * Reason Comments Med Refill Encounter Details Date Type Department Care Team (Late st Contact Info) Description 08/07/2023 Refill [facility] [address] [place] [address] Albert Fierro PA [address] [place] [address] Social History Tobacco Use Types [...] drink first t luzmaria in the morning (EYE-TOBACCO SIZER) to steady your nerves or to get [...] 30 day supply with 2 refill(s) to [facility]. documented in this encounter Plan [...] documented as of this encounter Care Teams Division Supervisor Relationship Specialty Start Date End Date Betty Antonio APRN [address] [place] [address] PCP - General 05/31/21 documented as of this encounter
--- OUTSIDE RECORDS SUMMARY | 2025-08-18 16:15 | XMS_ITS | Clinical Summary ---
Author Organization [facility] Address [address] [place] [address] Care Team Providers Care Senior Electrical Design Engineer Name Role Phone AntonioBetyt zamorano [place] FRANK Primary Care Provider [phone] Allergies Active Allergy Reactions Criticality Noted Date [...] time each day. Active cholecalciferol 250 MCG (80997 UT) capsule Take 5,000 Units by mouth [...] place to sleep or slept in a detention (including now)? No 09/27/2023 CAGE ASSESSMENT Answer [...] drink first t luzmaria in the morning (EYE-BOWLING PIN REFINISHER) to steady your nerves or to get [...] of 2) 02/15/2008 [facility]-Depression Screening 11/27/2024 11/28/2023 [id number] Vaccine (3 - season) 2025 09/05/2021, 01/10/2021 [...] this topic Medical Devices Implanted Type Area Valve Maker Device Identifier Shelf Expiration Date Model / Serial / Lot Stent Biliary 2.3 X 50mm - [id number] Implanted:Qty: 1 on 02/25/2023 by Flavio Noble MD at [id number] 10/04/2025 [id number] / / [id number] Stent Biliary 2.3 X 50mm - [id number] Implanted:Qty: 1 on 02/25/2023 by Flavio Noble MD at [id number] 11/12/2025 [id number] / / [id number] Procedures Procedure Name Priority Date/Time Associated Diagnosis [...] Lolly Johnson MD Proceduralist Celso Zimmerman Endo Facilities Locator Preprocedure A history and physical has been [...] of bowel preparation was evaluated using the [place] Bowel Preparation Scale with scores of: right [...] Antibody Negative Negative 04/01/2023 4:45 PM EDT [facility] Blood Venous blood specimen / Unknown Venipuncture / Unknown 04/01/2023 3:49 PM EDT 04/01/2023 4:03 PM EDT Juan Jose Novak MD LAB BLOOD ORDERABLES Final Resul t [facility] [address] [place] [address] * Hemoglobin A1c (01/15/2023 5:04 PM EDT) [...] Adults <6.0% Children and Adolescents <7.5% Source: [place] [employer]. Standards of medical care in diabetes,2017. Diabetes Care.2017:40 (suppl 1):S1-S135. HbA1c assay performed by an ion-exchange chromatography method that is certified traceable to the DCCT. us Albert SANCHEZ LAB BLOOD ORDERABLES Final Re sult [facility] [address] [place] [address] from Last 3 Months or Most Recently [...] has decision-making capacity? Yes Care Teams Senior Electrical Design Engineer Relationship Specialty Start Date End Date Betty Antonio APRN [address] [place] [address] PCP - General 05/31/21
--- OUTSIDE RECORDS SUMMARY | 2025-08-18 16:17 | XMS_ITS | Encounter Summary ---
Author Organization Healthcare Address [address] [place] [address] Care Team Providers Care Type Casting Machine Operator Name Role Phone AntonioBetty zamoraon [place] FRANK Primary Care Provider +1- [phone] Encounter Details Date Type Department Care Team (Late st Contact Info) Description 04/04/2023 Billing Only Encounter [facility] Internal Medicine [address], [address] [place] [address] Luz Jaime, TOASTER OPERATOR [address] [place] [address] Social History Tobacco Use Types [...] drink first t luzmaria in the morning (EYE-SMOG TECHNICIAN) to steady your nerves or to get [...] documented as of this encounter Care Teams Type Casting Machine Operator Relationship Specialty Start Date End Date Betty Antonio APRN [address] [place] [address] PCP - General 05/31/21 documented as of this encounter
--- OUTSIDE RECORDS SUMMARY | 2025-08-18 16:17 | XMS_ITS | Encounter Summary ---
[facility] Address [address] [place] [address] Care Team Providers Care Webbing Seamer Pound Net Name Role Phone Betty Antonio DIRECTOR OF TECHNOLOGY Primary Care Provider + [phone] Reason for Visit * Reason Comments Med Refill Encounter Details Date Type Department Care Team (Late st Contact Info) Description 07/30/2022 Refill [facility] [address] [place] [address] Juan Bonds MD [address] [place] [address] Closed fracture of neck of left femur [...] documented as of this encounter Care Teams Webbing Seamer Pound Net Relationship Specialty Start Date End Date Betty Antonio APRN PCP - General Internal Medicine 04/14/22 documented as of this encounter
--- OUTSIDE RECORDS SUMMARY | 2025-08-18 16:17 | XMS_ITS | Clinical Summary ---
[facility] Address [address] [place] [address] Care Team Providers Care Service Tech Name Role Phone PacoBetty MONIKA Primary Care Provider + [phone] Allergies Active Allergy Reactions Criticality Noted Date [...] 4 MG disintegrating tablet 3 Active Creon 71178-39463 units capsule delayed-release particles capsule Take 1 [...] Completed 04/01/2023 Medical Devices Implanted Type Area Payroll Processor Device Identifier Shelf Expiration Date Model / Serial / Lot Scrw Hernandez Sd/St [id number] 6.5x85mm - [id number] Implanted:Qty : 2 on 04/13/2022 by Juan Bonds MD at [facility] Implant Left: Hip [employer] [id number] / / Scrw Hernandez Sd/St [id number] 6.5x80mm - [id number] Implanted:Qty : 1 on 04/13/2022 by Juan Bonds MD at [facility] Implant Left: Hip [employer] [id number] / / Insurance [employer] MEDICARE ADVANTAGE MEDICARE [...] Of Support Discussed With: Patient Care Teams Service Tech Relationship Specialty Start Date End Date Betty Antonio APRN PCP - General Internal Medicine 04/14/22
== END 2025-08-18 23:59 | disposition home or self-care (01) ==
LOC: RT 15:00
PROVIDERS: PCP Nurse Practitioner Family; Visit Provider Nurse Practitioner Family
DX: R06.02 Shortness of breath (principal)
CPT/HCPCS: 94010

== ENCOUNTER 2025-08-19 13:54 | Outpatient (CLI) | payer MEDICARE, SELFPAY ==
--- OUTSIDE RECORDS SUMMARY | 2025-08-19 14:05 | XMS_ITS | Clinical Summary ---
Author Organization [facility] Address [address] [place] [address] Phone Care Team Providers Care Candy Spreader Name Role Phone Unavailable Unavailable Conditions or Problems No information available. Medications No information available. Medications Administered No information available. Allergies, Adverse Reactions, Alerts No information available. Results No information available. Plan of Care No information available. Procedures No information available. Vital Signs No information available. Immunizations No information available. Advance Directives No information available.
--- OUTSIDE RECORDS SUMMARY | 2025-08-19 14:06 | XMS_ITS | Encounter Summary ---
Author Organization Healthcare Address [address] [place] [address] Care Team Providers Care Helmet Hat Sweatband Puncher Name Role Phone AntonioBetty zamorano [place] FRANK Primary Care Provider +1- [phone] Encounter Details Date Type Department Care Team (Late st Contact Info) Description 04/04/2023 Billing Only Encounter [facility] Internal Medicine [address] [place] [address] Luz Jaime, MEDICAL OFFICE SUPERVISOR [address] [place] [address] Social History Tobacco Use Types [...] drink first t luzmaria in the morning (EYE-BOX HINGE AND LOCK ATTACHER) to steady your nerves or to get [...] documented as of this encounter Care Teams Helmet Hat Sweatband Puncher Relationship Specialty Start Date End Date Betty Antonio APRN [address] [place] [address] PCP - General 05/31/21 documented as of this encounter
--- OUTSIDE RECORDS SUMMARY | 2025-08-19 14:06 | XMS_ITS | Referral Summary ---
Author Organization [employer] ([place], [place], [place], [place], [place]) Address [address] [place] [address] Care Team Providers Care Technician Support Association Name Role Phone Betty Antonio INFORMIX DEVELOPER Primary Care Provider Allergies Active Allergy Reactions [...] Advance Directives For more information, please contact: [phone] * Full Code (Latest Code Status on File) Date Activated Date Inactivated Comments 10/19/2023 6:17 PM 10/26/2023 4:31 PM Care Teams Technician Support Association Relationship Specialty Start Date End Date Betty Antonio, MONIKA [address] [address] PCP - General Nurse Practitioner 10/19/23
--- OUTSIDE RECORDS SUMMARY | 2025-08-19 14:06 | XMS_ITS | Clinical Summary ---
Author Organization [facility] Address [address] [place] [address] Care Team Providers Care Pulp House Supervisor Name Role Phone AntonioBetty zamorano [place] FRANK Primary Care Provider +1- [phone] Allergies Active Allergy Reactions Criticality Noted Date [...] time each day. Active cholecalciferol 250 MCG (33697 UT) capsule Take 5,000 Units by mouth [...] place to sleep or slept in a long term (including now)? No 09/27/2023 CAGE ASSESSMENT Answer [...] drink first t luzmaria in the morning (EYE-CONTINUING EDUCATION DEAN) to steady your nerves or to get [...] of 2) 02/15/2008 [facility]-Depression Screening 11/27/2024 11/28/2023 [id number] Vaccine (3 - season) 2025 09/05/2021, 01/10/2021 [...] this topic Medical Devices Implanted Type Area Divisional Merchandising Manager Device Identifier Shelf Expiration Date Model / Serial / Lot Stent Biliary 2.3 X 50mm - [id number] Implanted:Qty: 1 on 02/25/2023 by Flavio Noble MD at [facility]-[id number] 10/04/2025 [id number] / / [id number] Stent Biliary 2.3 X 50mm - [id number] Implanted:Qty: 1 on 02/25/2023 by Flavio Noble MD at [facility]-[id number] 11/12/2025 [id number] / / [id number] Procedures Procedure Name Priority Date/Time Associated Diagnosis [...] Lolly Johnson MD Proceduralist Celso Zimmerman Endo Coding Advisor Preprocedure A history and physical has been [...] of bowel preparation was evaluated using the [place] Bowel Preparation Scale with scores of: right [...] Antibody Negative Negative 04/01/2023 4:45 PM EDT [email or web address] Blood Venous blood specimen / Unknown Venipuncture / Unknown 04/01/2023 3:49 PM EDT 04/01/2023 4:03 PM EDT Juan Jose Novak MD LAB BLOOD ORDERABLES Final Resul t [facility] [address] [place] [address] * Hemoglobin A1c (01/15/2023 5:04 PM EDT) [...] Adults <6.0% Children and Adolescents <7.5% Source: [place] Diabetes [employer]. Standards of medical care in diabetes,2017. Diabetes Care.2017:40 (suppl 1):S1-S135. HbA1c assay performed by an ion-exchange chromatography method that is certified traceable to the DCCT. us Albert SANCHEZ LAB BLOOD ORDERABLES Final Re sult [facility] [address] [place] [address] from Last 3 Months or Most Recently Relevant to Health Maintenance Insurance [facility] MEDICARE Advance Directives * Full [...] Patient has decision-making capacity? Yes Care Teams Pulp House Supervisor Relationship Specialty Start Date End Date Betty Antonio APRN [address] [place] [address] PCP - General 05/31/21
--- OUTSIDE RECORDS SUMMARY | 2025-08-19 14:06 | XMS_ITS | Clinical Summary ---
Author Organization [employer] ([place], [place], [place], [place], [place]) Address [address] [place] [address] Care Team Providers Care Hot Saw Operator Name Role Phone Betty Antonio PROGRAM PARAPROFESSIONAL Primary Care Provider Allergies Active Allergy Reactions [...] Date Gordo rded Speak language other than Hungarian at home Not on file 10/19/2023 Want [...] Advance Directives For more information, please contact: [phone] * Full Code (Latest Code Status on File) Date Activated Date Inactivated Comments 10/19/2023 6:17 PM 10/26/2023 4:31 PM Care Teams Hot Saw Operator Relationship Specialty Start Date End Date Betty Antonio, PROGRAM PARAPROFESSIONAL [address] [address] PCP - General Nurse Practitioner 10/19/23
--- OUTSIDE RECORDS SUMMARY | 2025-08-19 14:07 | XMS_ITS | Encounter Summary ---
[facility] Address [address] [address] Care Team Providers Care Animal Impersonator Name Role Phone Betty Antonio WOOL HANKER Primary Care Provider + [phone] Reason for Visit * Reason Comments Med Refill Encounter Details Date Type Department Care Team (Late st Contact Info) Description 07/30/2022 Refill [facility] OR[facility]OP[facility] MEDICINE [address] [place] [address] Juan Bonds MD [address] [place] [address] Closed fracture of neck of left femur [...] documented as of this encounter Care Teams Animal Impersonator Relationship Specialty Start Date End Date Betty Antonio APRN PCP - General Internal Medicine 04/14/22 documented as of this encounter
--- OUTSIDE RECORDS SUMMARY | 2025-08-19 14:07 | XMS_ITS | Clinical Summary ---
Author Organization [facility] Address [address] [place] [address] Phone Care Team Providers Care Staking Engineer Name Role Phone Unavailable Primary Care Provider [...]
--- OUTSIDE RECORDS SUMMARY | 2025-08-19 14:07 | XMS_ITS | Clinical Summary ---
Author Organization [facility] Address [address] [place] [address] Care Team Providers Care Machine Carton Marker Name Role Phone Leila Townsend MD Primary Care Provider + [phone] Social History Tobacco Use Types Packs/Day Years Used Date Smoking Tobacco: Never Assessed Comments Unknown Sex and Gender Information Value Date Recorded Sex Assigned at Not on file Legal Sex Female 3:11 PM EDT Gender Identity Not on file Sexual Orientation Not on file Plan of Treatment Not on file Insurance ANTHEM Care Teams Machine Carton Marker Relationship Specialty Start Date End Date Leila Townsend MD [address] [facility] PCP - General Family Medicine 07/12/14
--- OUTSIDE RECORDS SUMMARY | 2025-08-19 14:07 | XMS_ITS | Encounter Summary ---
Author Organization Healthcare Address [address] 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 documented in this encounter Plan of [...] documented as of this encounter Care Teams Turn Supervisor Relationship Specialty Start Date End Date Betty Antonio APRN [address] [place] [address] PCP - General 05/31/21 documented as of this encounter
--- OUTSIDE RECORDS SUMMARY | 2025-08-19 14:07 | XMS_ITS | Clinical Summary ---
[facility] Address [address] [place] [address] Care Team Providers Care Higher Level Teaching Assistant Name Role Phone PacoBetty MONIKA Primary Care Provider + [phone] Allergies Active Allergy Reactions Criticality Noted Date [...] 4 MG disintegrating tablet 3 Active Creon 48344-76928 units capsule delayed-release particles capsule Take 1 [...] Completed 04/01/2023 Medical Devices Implanted Type Area Mannequin Maker Device Identifier Shelf Expiration Date Model / Serial / Lot Scrw Hernandez Sd/St [id number] 6.5x85mm - [id number] Implanted:Qty : 2 on 04/13/2022 by Juan Bonds MD at [facility] Implant Left: Hip [employer] [id number] / / Scrw Hernandez Sd/St [id number] 6.5x80mm - [id number] Implanted:Qty : 1 on 04/13/2022 by Juan Bonds MD at [facility] Implant Left: Hip [employer] [id number] / / Insurance [employer] MEDICARE ADVANTAGE MEDICARE [...] Of Support Discussed With: Patient Care Teams Higher Level Teaching Assistant Relationship Specialty Start Date End Date Betty Antonio APRN PCP - General Internal Medicine 04/14/22
--- OUTSIDE RECORDS SUMMARY | 2025-08-19 14:07 | XMS_ITS | Encounter Summary ---
Author Organization [facility] [place] [address] Care Team Providers Care Sports Team Manager Name Role Phone Unavailable Primary Care Provider Unavailabl e Encounter Details Date Type Department Care Team (Late st Contact Info) Description 03/02/2024 Lab Requisition [facility] [address] [place] [facility] Madison Metcalf MD [address] [place] [address] Acute and subacute infective endocarditis Social History [...] ORDERABLES Final Resu lt Performing Organization Address [facility] Co de Phone Number [facility] [address] [place] [address] * EXTRA GOLD SST (03/02/2024 10:30 AM EDT) Blood VENOUS BLOOD / Unknown 03/02/2024 10:30 AM EDT 03/02/2024 7:12 PM EDT us Madisno Metcalf MD CHEMISTRY ORDERABLES Final Resul t Performing Organization Address [facility] de Phone Number [facility] [address] [place] [address] * (ABNORMAL) C-REACTIVE PROTEIN (03/02/2024 10:30 AM EDT) CRP 6.89(H) <=5.00 mg/L 03/02/2024 8:25 PM EDT [facility] Blood VENOUS BLOOD / Unknown 03/02/2024 10:30 AM EDT 03/02/2024 7:12 PM EDT Result Lashell Metcalf MD CHEMISTRY ORDERABLES Final Resul t Performing Organization Address [facility] de Phone Number [facility] [address] [place] [address] * (ABNORMAL) SEDIMENTATION RATE AUTOMATED (03/02/2024 10:30 AM EDT) Sed Rate 39(H) 0 - 30 mm/hr 03/02/2024 7:58 PM EDT [facility] Blood VENOUS BLOOD / Unknown 03/02/2024 10:30 AM EDT 03/02/2024 7:12 PM EDT us Madison Metcalf MD HEMATOLOGY ORDERABLES Final Resu lt [facility] [address] [facility] , [place] [address] * (ABNORMAL) COMPREHENSIVE METABOLIC PANEL (03/02/2024 10:30 [...] mL/min/1.7 3 m2 03/02/2024 8:25 PM EDT [facility] Comment:Estimated GFR was ca lculated using the CKD-EPIcr (2020) equation refit without race. The equation is recommended by the National Kidney Foundation - [place] [employer] of Nephrology Task Force. Blood VENOUS BLOOD / Unknown 03/02/2024 10:30 AM EDT 03/02/2024 7:12 PM EDT us Madison Metcalf MD CHEMISTRY ORDERABLES Final Resul t [facility] [address] [facility] , [place] [address] [facility] [address] [place] [address] * (ABNORMAL) CBC WITH DIFF [...] 03/02/2024 7:58 PM EDT [facility] MPV 10.8 8.8 - 12.5 fL 03/02/2024 7:58 PM EDT [facility] Neut Percent 52.7 % 03/02/2024 7:58 PM EDT [facility] Comment:Neutrophils equals s egs plus bands Imm Gran% 0.6 % 03/02/2024 7:58 PM EDT [facility] Comment:Automated count of m etamyelocytes, myelocytes and promyelocytes. Lymph Percent 30.8 % 03/02/2024 7:58 PM EDT [facility] [place] Percent 5.8 % 03/02/2024 7:58 PM EDT [facility] Eos Percent 8.6 % 03/02/2024 7:58 PM EDT [facility] Baso Percent 1.5 % 03/02/2024 7:58 PM EDT [facility] Neut # 3.8 1.6 - 6.1 x10(3)/[facility] 03/02/2024 7:58 PM EDT [facility] Comment:Neutrophils equals s egs plus bands IMMGRAN# 0.0 0.0 - 0.1 x10(3)/[facility] 03/02/2024 7:58 PM EDT [facility] Comment:Automated count of m etamyelocytes, myelocytes and promyelocytes. An absolute IG <0.1 is reported as 0.0. Lymph # 2.2 1.2 - 3.9 x10(3)/[facility] 03/02/2024 7:58 PM EDT [facility] [place] # 0.4 0.3 - 0.9 x10(3)/[facility] 03/02/2024 7:58 PM EDT [facility] Eos# 0.6(H) 0.0 - 0.5 x10(3)/[facility] 03/02/2024 7:58 PM EDT [facility] Baso # 0.1 0.0 - 0.1 x10(3)/[facility] 03/02/2024 7:58 PM EDT [facility] Blood VENOUS BLOOD / Unknown 03/02/2024 10:30 AM EDT 03/02/2024 7:12 PM EDT us Madison Metcalf MD HEMATOLOGY ORDERABLES Final Resu lt [facility] [address] [facility] , [address] [place] [id number] documented in this encounter Visit Diagnoses Diagnosis 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
[2025-08-19 14:10] VITALS: BP 120/57; PULSE 69; RESP 18; O2SAT 98
[2025-08-19] MEDS: MAGNESIUM SULFATE IN WATER 2 GM/50 ML PIGGYBACK IV (14:10)
[2025-08-19 15:15] VITALS: BP 134/78; PULSE 69; RESP 18; TEMP 36.5; O2SAT 98
[2025-08-19] MEDS: 0.9 % SODIUM CHLORIDE 50 ML 25 ML IV (15:15)
== END 2025-08-19 23:59 | disposition home or self-care (01) ==
LOC: INF 13:55
PROVIDERS: PCP Nurse Practitioner Family; Visit Provider Nurse Practitioner Family
DX: I33.0 Acute and subacute infective endocarditis (principal)
CPT/HCPCS: 96365; J3475